=== PATIENT | female | born 1945 | race Caucasian/White ===

== ENCOUNTER 2024-12-30 13:34 | Outpatient (OUT) | payer MEDICARE, SELFPAY | END 2024-12-30 13:35 | disposition home or self-care (01) | LOC: WC 13:35 | PROVIDERS: PCP Physician Assistant; Visit Provider Physician Assistant | DX: L60.3 Nail dystrophy (principal); R26.81 Unsteadiness on feet; L60.9 Nail disorder, unspecified | CPT/HCPCS: 11721 ==

== ENCOUNTER 2025-04-06 11:19 | Outpatient (OUT) | payer MEDICARE, SELFPAY ==
[2025-04-06 12:00] LABS: Hematocrit 32.5 % (36.0-48.0); Hemoglobin 9.5 g/dL (12.0-16.0); Immature Granulocytes Abs Auto 0.04 10^3/uL (0.00-0.03); Immature Granulocytes Pct Auto 0.7 % (0.0-0.5); Lymphocytes Absolute Auto 1.1 10^3/uL (1.2-3.8); Mean Corpuscular HGB Conc 29.2 g/dL (29.9-35.2); Mean Corpuscular Hemoglobin 23.7 pg (26.7-34.0); Mean Corpuscular Volume 81.0 fL (81.0-99.0); Platelet Count 272 10^3/uL (150-450); Red Blood Count 4.01 10^6/uL (4.20-5.40); White Blood Count 6.1 10^3/uL (4.0-11.0)
[2025-04-06 12:05] LABS: Anion Gap 10.9; Blood Urea Nitrogen 23.0 mg/dL (7.0-18.0); Calcium 8.8 mg/dL (8.5-10.1); Carbon Dioxide 30.8 mmol/L (21.0-32.0); Chloride 103 mmol/L (98-107); Estimated GFR (African America >60 (>=60 mL/min/1.73m^2); Estimated GFR (Non-African Ame >60 (>=60 mL/min/1.73m^2); Glucose 83 mg/dL (74-106); Potassium 3.7 mmol/L (3.5-5.1); Sodium 141 mmol/L (136-145)
== END 2025-04-06 11:20 | disposition home or self-care (01) ==
LOC: LAB 11:25
PROVIDERS: PCP Physician Assistant; Visit Provider Nurse Practitioner Family
DX: I48.0 Paroxysmal atrial fibrillation (principal)
CPT/HCPCS: 36415; 80048; 85025

== ENCOUNTER 2025-06-28 10:58 | Outpatient (OUT) | payer MEDICARE, SELFPAY ==
--- OUTSIDE RECORDS SUMMARY | 2007-10-20 10:41 | XMS_ITS | Continuity of Care Document ---
Author Organization [facility] Address [facility] [place] [address] Phone Care Team Providers Care Garnisher Name Role Phone Kalpesh Menchaca MD Unavailable Unavailable Advance Directives Directive Yes / No Effective Date File Name No Information Encounters Encounter Description Practice Location Reason(s) For Visit Diagnoses Date Provider Providers Copied on Encounter [facility] , [address] [place] [address], [id number], tel:[phone] TEA No Information Bernarda Posey. [address] [place] [address], [id number], . tel:[phone] Referring Provider: Kalpesh Menchaca MD, [address] [place] [address], [facility] [place][note 2]. tel:[phone] Family History Family Member Type Diagnosis Age At Onset No Information Payers Payer name Insurance type Covered democrat ID Authoriza tion(s) No Information Social History Type Description Quantity Date Captured Comments Sex Female Smoking Status No Information Chief Complaint And Reason For Visit No Information Reason For Referral Reason For Referral No Information History Of Present Illness Encounter Date Complaint History Of Prese nt Illness No Information Functional Status Date Functional Assessmen t No Information Instructions Date Instruction Additional Infor mation No Information Assessments Type Assessment Date No Information Patient Care Teams Name Effective Dates (start - stop) Status Members No Information
--- OUTSIDE RECORDS SUMMARY | 2024-12-27 09:30 | XMS_ITS ---
Author Organization [facility] [place] Address [address] [place] [address] Care Team Providers Care Manager Commission Name Role Phone Hannah Gruber MD Primary Care Provider Unavailab Brianne Dawson Unavailable [phone] REASON FOR VISIT Nail Care lm to cx Encounters Encounter Location Date Provider Diagnosis [facility] (PODIATRY) [address] [place] [address] [place] [address] 12/27/2024 Brianne Patel Plan Of Treatment No Information Progress Notes * FRANTZELEUTERIOLudivinaDOB:1945 (80 yo F)Acc No.[id number]:12/27/2024 UNLOCKED PROGRESS NOTE Nurse Visit Patient: Ludivina GONZALEZ Provider: Nia Patel PA-C :1945 A ge:79 Y S ex:Female Date:12/27/2024 Address:[address] [place], [place] [phone] Pcp:Hannah Gruber MD Subjective: * Chief Complaints: * 1 . Nail Care lm to cx. * Medical History: Objective: * Vitals: Assessment: Plan: * Treatment: * * Electronic signature of Felicita Patel PA-C on 06/28/2025 at 11:00 AM EDT Sign off status: Pending Visit Status: O FF CANC (OFFICE CANCEL) * Provider: Nia Patel PA-C Date: 0 12/27/2024 Generated for Printi ng/Faxing/eTransmitting on: 1 11:00 AM EDT
--- OUTSIDE RECORDS SUMMARY | 2025-06-28 11:00 | XMS_ITS | Clinical Summary ---
Author Organization [facility] Address [address] [place] [address] Care Team Providers Care Room Service Server Name Role Phone Hannah Gruber MD Primary Care Provider [phone] Allergies Active Allergy Reactions Criticality Noted Date Comments Iodinated Contrast Media Hives,Rash Low 01/20/2024 Other Reaction(s): respiratory distress Meperidine 01/20/2024 Other Reaction(s): Dyspnea Neomycin Rash,Swelling Low 01/20/2024 Medications amLODIPine (Norvasc) 5 MG tablet Take 5 mg by mouth Daily 01/13/2024 Active DULoxetine (Cymbalta) [address] capsule 1 capsule 1 (one) time each day at the same time 12/22/2023 Active fexofenadine (Graciela Allergy) 180 MG tablet Take 1 tablet by mouth Daily Active hydroCHLOROthia zide (HYDRODiuril) 25 MG tablet Take 1 tablet by mouth Daily 01/13/2024 Active aspirin 81 MG EC tablet Take 81 mg by mouth Daily Active atorvastatin (Lipitor) 40 MG tablet Take 40 mg by mouth Daily 01/02/2024 Active apixaban (Eliquis) 5 MG tablet Take 5 mg by mouth in the morning and 5 mg before bedtime. Active Active Problems No known active problems Family History Relation Name Status Comments Father Mother Social History Tobacco Use Types Packs/Day Years Used Date Smoking Tobacco: Never Smokeless Tobacco: Never Tobacco Cessation:Counseling Given: Not Answered Alcohol Use Standard Drinks/Week Comments Never 0 (1 standard drink = 0.6 oz pur e alcohol) Comments Unknown Sex and Gender Information Value Date Recorded Sex Assigned at Not on file Legal Sex Female 6:42 PM EDT Gender Identity Not on file Sexual Orientation Not on file Last Filed Vital Signs Vital Sign Reading Time Taken Comments Blood Pressure 130/72 12/01/2024 9:08 AM EDT Pulse 89 04/14/2024 1:24 PM EDT Temperature - - Respiratory Rate 16 04/14/2024 1:24 PM EDT Oxygen Saturation 93% 04/14/2024 1:24 PM EDT Inhaled Oxygen Concentration - - Weight 81.2 kg (179 lb) 12/01/2024 9:08 AM EDT Height 162.6 cm (5' 4 ) 12/01/2024 9:08 AM EDT Body Mass Index 30.73 12/01/2024 9:08 AM EDT Plan of Treatment Health Maintenance Due Date Last Done Comments Pneumococcal Vaccine: 65+ Ye ars (2 of 2 - PCV) 07/13/2022 07/13/2021, 06/17/2015, 06/17/2010, Additional history exists Influenza Vaccine (#1) 2025 , 06/16/2023, 07/05/2022, Additional history exists Insurance MEDICARE [facility] Care Teams Room Service Server Relationship Specialty Start Date End Date Hannah Gruber MD [address] [place], [place] [id number] PCP - General Internal Medicine 12/31/23
--- OUTSIDE RECORDS SUMMARY | 2025-06-28 11:00 | XMS_ITS | Encounter Summary ---
Author Organization [facility] Address [address], [address] [place] [address] Care Team Providers Care Storage Receipt Poster Name Role Phone Hannah Gruber MD Primary Care Provider [phone] Reason for Visit * Reason Comments Follow-up Encounter Details Date Type Department Care Team ([facility] st Contact Info) Description 05/30/2025 Telemedicine [facility] Neuroscience [address] - Ground Floor, [address] [phone] Troy Ortiz MD [address] [address] [id number] Stroke-like symptoms (Primary Dx) Social History Tobacco Use Types Packs/Day Years Used Date Smoking Tobacco: Never Assessed Comments Unknown Sex and Gender Information Value Date Recorded Sex Assigned at Not on file Legal Sex Female 2:03 PM EDT Gender Identity Not on file Sexual Orientation Not on file documented as of this encounter Plan of Treatment Not on file documented as of this encounter Visit Diagnoses Diagnosis Stroke-like symptoms- Primary Other symptoms involving nervous and musculoskeletal systems documented in this encounter Care Teams Storage Receipt Poster Relationship Specialty Start Date End Date Hannah Gruber MD [address] [place] [phone] PCP - General Family Medicine 05/30/25 documented as of this encounter
--- OUTSIDE RECORDS SUMMARY | 2025-06-28 11:01 | XMS_ITS | Patient Health Record ---
Author Organization [facility] [place] Address [address] [place] [address] Care Team Providers Care Porcelain Turner Name Role Phone Hannah Gruber MD Primary Care Provider Unavailab Brianne Dawson Unavailable [phone] Allergies Allergen (clinical drug ingredient) Drug/Non Drug Allergy documented on EMR Reaction Allergy Type Onset Date Status meperidine Demerol Unknown Drug Allergy Active Iodine Unknown Drug Allergy Active neomycin Neomycin Unknown Drug Allergy Active Reason For Referral No Information Medications Medication SIG (Take, Route, Frequency, Duration) Notes Start Date End Date Status amLODIPine Besylate 5 MG 1 tablet Orally Once a day Active Cymbalta 60 MG 1 capsule Orally Once a day Active hydroCHLOROthiazide Active Social History Tobacco Use: Social History Observation Description Date Details (start date - stop date) Never Smoker NA - NA Tobacco Control (Standard) Question Answer Notes Tobacco use: Nonsmoker Problems Problem Type SNOMED Code ICD Code Onset Dates Problem Status W/U Status Risk Notes Problem 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 (625472756) Hemiplegia and hemiparesis following unspecified cerebrovascular disease affecting unspecified side (I69.959) Active confirmed Problem Stroke (616820393) Stroke (I63.9) Active confir med Problem Arthritis (9873004) Arthritis (M19.90) Active confirmed Problem Abnormal gait (66207209) Gait instability (R26.81) Active confirmed Problem History of artificial joint (033238292) Joint replaced (Z96.60) Active confirmed Vital Signs Heart Rate 81 /min 09/27/2024 Temperature 97.9 degrees Fahrenheit 09/27/2024 Oximetry 99 % 09/27/2024 Encounters Encounter Location Date Provider Diagnosis [facility] (PODIAT[facility]) [address] [place], [place] [address] [address] 09/27/2024 Brianne Patel Arthritis M19.90 Assessments Encounter Date Diagnosis (ICD Code) Assessment Notes Treatment Notes Treatment Clinical Notes Section Notes 09/27/2024 Arthritis (ICD-10 - M19.90) Plan Of Treatment No Information Insurance Providers Payer Name Payer Address Payer Phone Subscriber Number Group Number Insured Name Patient Relationship to Insured Coverage Start Date Coverage End Date [place] [address] [place] [address] [id number] Ludivina Alejandra Self - patient is the insured [facility] [address] [place] [address] [phone] [id number] Ludivina Alejandra Self - patient is the insured Medical (General) History Medical History History ICD Code Anemia D64.9 Arthritis M19.90 Stroke I63.9 Joint replaced Z96.60 Surgical History Surgery Date(Month/Year) R hip replacement 01/30/24 cataracts 01/12 left knee replacement 04/10
--- OUTSIDE RECORDS SUMMARY | 2025-06-28 11:01 | XMS_ITS | Clinical Summary ---
Author Organization [facility] Address [address], [address] [place] [address] Care Team Providers Care Corrosion Technician Name Role Phone Hannah Gruber MD Primary Care Provider [phone] Allergies Active Allergy Reactions Criticality Noted Date Comments Meperidine 05/30/2025 Environmental/Seasonal 05/30/2025 Iodinated Contrast Media 05/30/2025 Medications aspirin 81 MG EC tablet Take 1 tablet by mouth daily 30 tablet 06/03/2025 Active atorvastatin (LIPITOR) 40 MG tablet Take 1 tablet by mouth nightly 30 tablet 06/03/2025 Active rivaroxaban (XARELTO) 20 MG TABS tablet Take 1 tablet by mouth Daily with supper 30 tablet 3 06/07/2025 Active Active Problems Problem Noted Date Diagnosed Date Homonymous hemianopia, right 06/06/2025 High risk medication use 06/05/2025 CVA (cerebrovascular acciden t due to intracerebral hemorrhage) 06/04/2025 Abnormal echocardiogram 06/03/2025 ACS (acute coronary syndrome) 06/01/2025 Cardiomyopathy 06/01/2025 Chest pain 06/01/2025 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 06/01/2025 NSTEMI (non-ST elevated myocardial infarction) 0 05/31/2025 Hyperlipidemia 05/31/2025 Hypertension 05/31/2025 Depression 05/31/2025 Cerebrovascular accident (CVA) 05/31/2025 Expressive aphasia 05/31/2025 Stroke-like symptoms 05/30/2025 Encounters Date Type Department Care Team Description 05/30/2025 6:58 PM EDT - 06/07/2025 5:05 PM EDT Hospital Encounter [facility] [place] [address] Zandra Jung MD Shah, Gul E Marjan, DO Jundi, Mohammed, MD Al-Hurani, Bayan Tayseer, MD Cerebrovascular accident (CVA), unspecified mechanism (HCC) (Primary Dx); Cardiomyopathy, unspecified type (HCC); Chest pain, unspecified type Discharge Disposition: Inpatient Rehab Facility 05/30/2025 Telemedicine [facility] [address] Floor, [address] [place] [address] Troy Ortiz MD Stroke-like symptoms (Primary Dx) from Last 3 Months Social History Tobacco Use Types Packs/Day Years Used Date Smoking Tobacco: Never Assessed Comments Unknown Sex and Gender Information Value Date Recorded Sex Assigned at Not on file Legal Sex Female 2:03 PM EDT Gender Identity Not on file Sexual Orientation Not on file Last Filed Vital Signs Vital Sign Reading Time Taken Comments Blood Pressure 152/58 06/07/2025 3:14 PM EDT Pulse 80 06/07/2025 3:14 PM EDT Temperature 36.8 C (98.2 F) 06/07/2025 3:14 PM EDT Respiratory Rate 16 06/07/2025 3:14 PM EDT Oxygen Saturation 96% 06/07/2025 3:14 PM EDT Inhaled Oxygen Concentration - - Weight 80.7 kg (177 lb 14.6 oz) 06/06/2025 6:00 AM EDT Height - - Body Mass Index - - Plan of Treatment Health Maintenance Due Date Last Done Comments Depression Monitoring 1957 Shingles vaccine (1 of 2) 1995 DEXA (modify frequency per FRAX score) 02/17/2000 Pneumococcal 50+ years Vaccine (2 of 2 - PCV) 06/17/2016 06/17/2015, 06/17/2010 Respiratory Syncytial Virus (RSV) or age 60 yrs+ (1 - 1-dose 75+ series) 02/17/2020 Flu vaccine (#1) 04/22/2025 07/08/2024, , 07/05/2022, Additional history exists COVID-19 Vaccine (1 - 2023- season) 2025 Annual Wellness Visit (Medicare) 05/31/2025 Lipids 06/01/2026 06/01/2025 DTaP/Tdap/Td vaccine (2 - Td or Tdap) 01/27/2034 01/28/2024 Hepatitis A vaccine Aged Out No longe r eligible based on patient's age to complete this topic Hepatitis B vaccine Aged Out No longe r eligible based on patient's age to complete this topic Hib vaccine Aged Out No longer eligi ble based on patient's age to complete this topic Meningococcal (ACWY) vaccine Aged Out No longer eligible based on patient's age to complete this topic Meningococcal B vaccine Aged Out No l onger eligible based on patient's age to complete this topic Polio vaccine Aged Out No longer elig ible based on patient's age to complete this topic Procedures Procedure Name Priority Date/Time Associated Diagnosis Comments PHOSPHORUS Routine 06/07/2025 3:18 AM EDT MAGNESIUM Routine 06/07/2025 3:18 AM EDT CBC WITH AUTO DIFFERENTIAL Routine 06/07/2025 3:18 AM EDT BASIC METABOLIC PANEL Routine 06/07/2025 3:[address] HEAD WO CONTRAST Routine 06/06/2025 3 :15 PM EDT ANTI-XA, HEPARIN Timed 06/06/2025 9:31 AM EDT PHOSPHORUS Routine 06/06/2025 3:34 AM EDT MAGNESIUM Routine 06/06/2025 3:34 AM EDT CBC WITH AUTO DIFFERENTIAL Routine 06/06/2025 3:34 AM EDT BASIC METABOLIC PANEL Routine 06/06/2025 3:34 AM EDT ANTI-XA, HEPARIN Timed 06/06/2025 3:34 AM EDT ANTI-XA, HEPARIN Timed 06/05/2025 10:2 0 PM EDT ANTI-XA, HEPARIN Timed 06/05/2025 4:07 PM EDT PROTIME-INR Routine 06/05/2025 4:07 PM EDT APTT Routine 06/05/2025 4:07 PM EDT CBC Routine 06/05/2025 4:[address] HEAD WO CONTRAST Routine 06/05/2025 8 :25 AM EDT CBC Routine 06/04/2025 6:32 AM EDT APTT Timed 06/03/2025 6:32 AM EDT ECHO (TTE) COMPLETE W/ BUBBLE STUDY Routine 06/02/2025 1:25 PM EDT Cerebrovascular accident (CVA), unspecified mechanism (HCC) Cardiomyopathy, unspecified type (HCC) Chest pain, unspecified type APTT Timed 06/02/2025 1:13 PM EDT APTT Timed 06/02/2025 7:07 AM EDT CBC Routine 06/02/2025 7:07 AM EDT BASIC METABOLIC PANEL W/ REFLEX TO MG FOR LOW K Routine 06/02/2025 7:07 AM EDT APTT Timed 06/02/2025 1:02 AM EDT PREVIOUS SPECIMEN STAT 06/01/2025 3:3 7 PM EDT APTT STAT 06/01/2025 3:37 PM EDT XR CHEST PORTABLE Routine 06/01/2025 10: [address] HEAD WO CONTRAST Routine 06/01/2025 1 0:22 AM EDT LIPID PANEL Routine 06/01/2025 6:42 AM EDT HEMOGLOBIN A1C Routine 06/01/2025 6:42 AM EDT APTT Timed 06/01/2025 6:42 AM EDT BASIC METABOLIC PANEL W/ REFLEX TO MG FOR LOW K Routine 06/01/2025 6:42 AM EDT TROPONIN Timed 05/31/2025 9:38 PM EDT MRI BRAIN WO CONTRAST Routine 05/31/2025 3:06 PM EDT APTT Timed 05/31/2025 1:36 PM EDT ANTI-XA, HEPARIN Timed 05/31/2025 7:03 AM EDT MAGNESIUM Routine 05/31/2025 4:42 AM EDT TROPONIN Timed 05/31/2025 4:42 AM EDT BASIC METABOLIC PANEL W/ REFLEX TO MG FOR LOW K Routine 05/31/2025 4:42 AM EDT CBC Routine 05/31/2025 4:42 AM EDT TROPONIN Timed 05/31/2025 3:27 AM EDT ANTI-XA, HEPARIN Timed 05/31/2025 12:1 2 AM EDT PROTIME-INR Routine 05/31/2025 12:12 AM EDT APTT Routine 05/31/2025 12:12 AM EDT COMPREHENSIVE METABOLIC PANEL W/ REFLEX TO MG FOR LOW K STAT 05/31/2025 12:12 AM EDT CBC WITH AUTO DIFFERENTIAL STAT 05/31/2025 12:12 AM EDT from Last 3 Months Results * (ABNORMAL) CBC with Auto Differential (06/07/2025 3:18 AM EDT) Only the most recent of3 resultswithin the time period is included. WBC 6.7 3.5 - 11.3 k/uL 06/07/2025 3:18 AM EDT [facility] RBC 3.67(L) 3.95 - 5.11 m/uL 06/07/2025 3:18 AM EDT [facility] Hemoglobin 8.3(L) 11.9 - 15.1 g/dL 06/07/2025 3:18 AM EDT [facility] Hematocrit 29.0(L) 36.3 - 47.1 % 06/07/2025 3:18 AM EDT [facility] MCV 79.0(L) 82.6 - 102.9 fL 06/07/2025 3:18 AM EDT [facility] MCH 22.6(L) 25.2 - 33.5 pg 06/07/2025 3:18 AM EDT [facility] MCHC 28.6 28.4 - 34.8 g/dL 06/07/2025 3:18 AM EDT [facility] RDW 15.5(H) 11.8 - 14.4 % 06/07/2025 3:18 AM EDT [facility] Platelets 255 138 - 453 k/uL 06/07/2025 3:18 AM EDT [facility] MPV 10.0 8.1 - 13.5 fL 06/07/2025 3:18 AM EDT [facility] NRBC Automated 0.0 0.0 per 100 WBC 06/07/2025 3:18 AM EDT [facility] RBC Morphology ANISOCYTOSIS PRESENT MICROCYTOSIS PRESENT 06/07/2025 3:18 AM EDT [facility] Neutrophils % 66(H) 36 - 65 % 06/07/2025 3:18 AM EDT [facility] Lymphocytes % 18(L) 24 - 43 % 06/07/2025 3:18 AM EDT [facility] Monocytes % 10 3 - 12 % 06/07/2025 3:18 AM EDT [facility] Eosinophils % 4 1 - 4 % 06/07/2025 3:18 AM EDT [facility] Basophils % 1 0 - 2 % 06/07/2025 3:18 AM EDT [facility] Immature Granulocytes % 1(H) 0 % 06/07/2025 3:18 AM EDT [facility] Neutrophils Absolute 4.40 1.50 - 8.10 k/uL 06/07/2025 3:18 AM EDT [facility] Lymphocytes Absolute 1.22 1.10 - 3.70 k/uL 06/07/2025 3:18 AM EDT [facility] Monocytes Absolute 0.64 0.10 - 1.20 k/uL 06/07/2025 3:18 AM EDT [facility] Eosinophils Absolute 0.26 0.00 - 0.44 k/uL 06/07/2025 3:18 AM EDT [facility] Basophils Absolute 0.06 0.00 - 0.20 k/uL 06/07/2025 3:18 AM EDT [facility] Immature Granulocytes Absolute 0.09 0.00 - 0.30 k/uL 06/07/2025 3:18 AM EDT [facility] Blood BLOOD SPECIMEN / Unknown 06/07/2025 3:18 AM EDT 06/07/2025 3:49 AM EDT us Kendy Hernandez DO HEMATOLOGY ORDERABLES Final Result [facility] [address] [place] [address], [facility] [phone] * Phosphorus (06/07/2025 3:18 AM EDT) Only the most recent of2 resultswithin the time period is included. Phosphorus 4.2 2.5 - 4.5 mg/dL 06/07/2025 3:18 AM EDT [facility] Blood BLOOD SPECIMEN / Unknown 06/07/2025 3:18 AM EDT 06/07/2025 3:49 AM EDT us Gumauricio E Rosa Hernandez DO CHEMISTRY ORDERABLES Final Result Performing Organization Address [facility]/ZIP Co de [place] [address], [facility] [phone] * Magnesium (06/07/2025 3:18 AM EDT) Only the most recent of3 resultswithin the time period is included. Magnesium 1.9 1.6 - 2.4 mg/dL 06/07/2025 3:18 AM EDT [facility] Blood BLOOD SPECIMEN / Unknown 06/07/2025 3:18 AM EDT 06/07/2025 3:49 AM EDT Kendy Hernandez DO CHEMISTRY ORDERABLES Final Result Performing Organization Address [facility] de Phone Number [facility] [address] [place] [address], [facility] [phone] * (ABNORMAL) Basic Metabolic Panel (06/07/2025 3:18 AM EDT) Only the most recent of2 resultswithin the time period is included. Sodium 137 136 - 145 mmol/L 06/07/2025 3:18 AM EDT [facility] Potassium 3.9 3.7 - 5.3 mmol/L 06/07/2025 3:18 AM EDT [facility] Chloride 104 98 - 107 mmol/L 06/07/2025 3:18 AM EDT [facility] CO2 25 20 - 31 mmol/L 06/07/2025 3:18 AM EDT [facility] Anion Gap 8(L) 9 - 16 mmol/L 06/07/2025 3:18 AM EDT [facility] Glucose 98 74 - 99 mg/dL 06/07/2025 3:18 AM EDT [facility] BUN 19 8 - 23 mg/dL 06/07/2025 3:18 AM EDT [facility] Creatinine 0.8 0.6 - 0.9 mg/dL 06/07/2025 3:18 AM EDT [facility] Est, Glom Filt Rate 74 >60 mL/min/1. 73m2 06/07/2025 3:18 AM EDT [facility] Comment: These results are not intended for use in patients <18 years of age. eGFR results are calculated without a race factor using the 2020 CKD-EPI equation. Careful clinical correlation is recommended, particularly when comparing to results calculated using previous equations. The CKD-EPI equation is less accurate in patients with extremes of muscle mass, extra-renal metabolism of creatine, excessive creatine ingestion, or following therapy that affects renal tubular secretion. Calcium 9.1 8.6 - 10.4 mg/dL 06/07/2025 3:18 AM EDT [facility] Blood BLOOD SPECIMEN / Unknown 06/07/2025 3:18 AM EDT 06/07/2025 3:49 AM EDT Kendy Hernandez DO CHEMISTRY ORDERABLES Final Result [facility] [address] [phone] * CT HEAD WO CONTRAST (06/06/2025 3:15 PM EDT) Only the most recent of3 resultswithin the time period is included. Anatomical Region Laterality Modality Head Computed Tomogra phy 06/06/2025 6:06 PM EDT Impressions 06/07/2025 8:49 PM EDT 1. Redemonstration of an area of hypoattenuation in the posterior left temporal occipital lobe consistent with an acute area of infarct. No hemorrhage is identified. 2. 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 Remote left cerebellar infarct. Narrative 06/07/2025 8:49 PM EDT EXAMINATION: CT OF THE HEAD WITHOUT CONTRAST 06/06/2025 3:07 pm TECHNIQUE: CT of the head was performed without the administration of intravenous contrast. Automated exposure control, iterative reconstruction, and/or weight based adjustment of the mA/kV was utilized to reduce the radiation dose to as low as reasonably achievable. COMPARISON: 06/05/2025, brain MRI 05/30/2025 HISTORY: ORDERING SYSTEM PROVIDED HISTORY: Left RELIEF CHARGE NURSE stroke TECHNOLOGIST PROVIDED HISTORY: Left RELIEF CHARGE NURSE stroke Initial evaluation FINDINGS: BRAIN/VENTRICLES: The ventricles and cisternal spaces are prominent consistent with cerebral atrophy. There is atherosclerotic calcification of the cavernous carotids. There are subtle areas of hypoattenuation in the periventricular white matter and centrum semiovale that are likely related to chronic small vessel ischemic disease. There is a remote right frontal infarct. There is a remote left frontoparietal infarct. Remote left cerebellar infarct. There is an area of abnormal attenuation involving the posterior left temporal occipital lobe consistent with acute area of infarct. This is similar in appearance to the prior exams. No hemorrhage is identified in the brain parenchyma. ORBITS: The visualized portion of the orbits demonstrate no acute abnormality. SINUSES: The visualized paranasal sinuses and mastoid air cells are for the most part clear. SOFT TISSUES/SKULL: No acute abnormality of the visualized skull or soft tissues. Procedure Note Marian Espino MD - 06/07/2025 EXAMINATION: CT OF THE HEAD WITHOUT CONTRAST 06/06/2025 3:07 pm TECHNIQUE: CT of the head was performed without the administration of intravenous contrast. Automated exposure control, iterative reconstruction, and/orweight based adjustment of the mA/kV was utilized to reduce the radiation dose toas low as reasonably achievable. COMPARISON: 06/05/2025, brain MRI 05/30/2025 HISTORY: ORDERING SYSTEM PROVIDED HISTORY: Left RELIEF CHARGE NURSE stroke TECHNOLOGIST PROVIDED HISTORY: Left RELIEF CHARGE NURSE stroke Initial evaluation FINDINGS: BRAIN/VENTRICLES: The ventricles and cisternal spaces are prominent consistent with cerebral atrophy. There is atherosclerotic calcificationof the cavernous carotids. There are subtle areas of hypoattenuation in the periventricular white matter and centrum semiovale that are likely relatedto chronic small vessel ischemic disease. There is a remote right frontal infarct. There is a remote left frontoparietal infarct. Remote left cerebellar infarct. There is an area of abnormal attenuation involving the posterior left temporal occipital lobe consistent with acute area of infarct. This is similar in appearance to the prior exams. No hemorrhage is identifiedin the brain parenchyma. ORBITS: The visualized portion of the orbits demonstrate no acuteabnormality. SINUSES: The visualized paranasal sinuses and mastoid air cells are forthe most part clear. SOFT TISSUES/SKULL: No acute abnormality of the visualized skull orsoft tissues. IMPRESSION: 1. Redemonstration of an area of hypoattenuation in the posterior left temporal occipital lobe consistent with an acute area of infarct. No hemorrhage is identified. 2. 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 Remote left cerebellar infarct. Edis Murillo MD IMG CT ORDERABLES Final Result * Anti-XA, Heparin (06/06/2025 9:31 AM EDT) Only the most recent of6 resultswithin the time period is included. Anti-XA Unfrac Heparin 0.52 IU/L 06/06/2025 9:31 AM EDT [facility] Comment: This test has not been validated or calibrated for therapies other than unfractionated heparin. Interpretation of the result in relation to other therapies must be done with caution and within clinical context. Blood BLOOD SPECIMEN / Unknown 06/06/2025 9:31 AM EDT 06/06/2025 9:34 AM EDT Regan Burdick MD HEMATOLOGY ORDERABLES Final Resu lt Performing Organization Address [facility] Co de Phone Number [facility] [address] [place] [address] * APTT (06/05/2025 4:07 PM EDT) Only the most recent of9 resultswithin the time period is included. APTT 32.9 23.0 - 36.5 sec 06/05/2025 4:07 PM EDT [facility] Comment: IV Heparin Therapy Range: 66.0-92.0 sec Blood BLOOD SPECIMEN / Unknown 06/05/2025 4:07 PM EDT 06/05/2025 4:12 PM EDT Regan Burdick MD HEMATOLOGY ORDERABLES Final Resu lt Performing Organization Address City/[facility]/ZIP Co de Phone Number [facility] [address] [place] [address] * Protime-INR (06/05/2025 4:07 PM EDT) Only the most recent of2 resultswithin the time period is included. Pathologist [facility] Protime 13.6 11.7 - 14.9 sec 06/05/2025 4:07 PM EDT [facility] INR 1.0 06/05/2025 4:07 PM EDT [facility] Comment: Therapeutic Range: Moderate Anticoagulant Intensity: INR = 2.0-3.0 High Anticoagulant Intensity: INR = 2.5-3.5 Blood BLOOD SPECIMEN / Unknown 06/05/2025 4:07 PM EDT 06/05/2025 4:12 PM EDT us Regan Burdick MD HEMATOLOGY ORDERABLES Final Resu lt [facility] [address] [phone] * (ABNORMAL) CBC (06/05/2025 4:07 PM EDT) Only the most recent of4 resultswithin the time period is included. Pathologist [facility] WBC 9.2 3.5 - 11.3 k/uL 06/05/2025 4:07 PM EDT [facility] RBC 4.01 3.95 - 5.11 m/uL 06/05/2025 4:07 PM EDT [facility] Hemoglobin 9.2(L) 11.9 - 15.1 g/dL 06/05/2025 4:07 PM EDT [facility] Hematocrit 32.0(L) 36.3 - 47.1 % 06/05/2025 4:07 PM EDT [facility] MCV 79.8(L) 82.6 - 102.9 fL 06/05/2025 4:07 PM EDT [facility] MCH 22.9(L) 25.2 - 33.5 pg 06/05/2025 4:07 PM EDT [facility] MCHC 28.8 28.4 - 34.8 g/dL 06/05/2025 4:07 PM EDT [facility] RDW 15.7(H) 11.8 - 14.4 % 06/05/2025 4:07 PM EDT [facility] Platelets 296 138 - 453 k/uL 06/05/2025 4:07 PM EDT [facility] MPV 10.2 8.1 - 13.5 fL 06/05/2025 4:07 PM EDT [facility] NRBC Automated 0.0 0.0 per 100 WBC 06/05/2025 4:07 PM EDT [facility] Blood BLOOD SPECIMEN / Unknown 06/05/2025 4:07 PM EDT 06/05/2025 4:12 PM EDT us Regan Burdick MD HEMATOLOGY ORDERABLES Final Resu lt [facility] [place] [address], [facility] [phone] * (ABNORMAL) ECHO (TTE) COMPLETE W/ BUBBLE STUDY (06/02/2025 1:25 PM EDT) LA [place] 4.8 cm [facility] CV CPACS LA [place] 5.2 cm [facility] CV CPACS LA Area 2C 13.9 cm2 [facility] CV CPACS LA Area 4C 10.3 cm2 [facility] CV CPACS LA Volume MOD A2C 32 22 - 52 mL [facility] CV CPA CS LA Volume MOD A4C 16(A) 22 - 52 mL [facility] CV CPA CS LA Volume BP 24 22 - 52 mL [facility] CV CPACS LA Diameter 2.9 cm BS CV CPACS LV EDV A4C 50 mL [facility] CV CPACS LV EDV 3D 98 mL [facility] CV CPACS LV ESV A4C 14 mL [facility] CV CPACS LV ESV 3D 42 mL [facility] CV CPACS EF 3D 57 % [facility] CV CPACS LV Ejection Fraction A4C 71 % [facility] CV [facility]ACS LVOT SV 40.2 ml [facility] CV CPACS LV Mass 3D 125.0 g [facility] CV CPACS IVSd 0.9 0.6 - 0.9 cm BS CV CPACS LVIDd 3.7(A) 3.9 - 5.3 cm [facility] CV CPACS LVIDs 2.3 cm BS CV CPACS LVOT Diameter 1.6 cm BS CV CPACS LVOT Mean Gradient 3 mmHg BS CV CPACS LVOT VTI 20.0 cm BS CV CPACS LVOT Peak Velocity 1.2 m/s BS CV CPACS LVOT Peak Gradient 6 mmHg BS CV CPACS LVPWd 1.0(A) 0.6 - 0.9 cm BS CV CPACS LV E' Lateral Velocity 8.39 cm/s BS CV CPACS LV E' Septal Velocity 5.78 cm/s BS CV CPACS Global longitudinal strain -14.2 % BS CV CPACS Global longitudinal strain -11.6 % [facility] CV CPACS Global longitudinal strain -15.9 % BS CV CPACS Global longitudinal strain -13.9 % BS CV CPACS LVOT Area 2.0 cm2 BS CV CPACS RA Area 4C 12.4 cm2 BS CV CPACS RA Volume 31 ml BS CV CPACS AV Mean Velocity 1.0 m/s BS CV CPACS AV Mean Gradient 5 mmHg BS CV CPACS AV VTI 25.5 cm BS CV CPACS AV Peak Velocity 1.6 m/s BS CV CPACS AV Peak Gradient 10 mmHg BS CV CPACS AV Area by VTI 1.6 cm2 BS CV CPACS AV Area by Peak Velocity 1.6 cm2 BS CV CPACS Aortic Root 2.9 cm BS CV CPACS Ascending Aorta 3.8 cm BS CV CPACS IVC Proxmal 0.9 cm [facility] CV CPACS MV E Wave Deceleration Time 172.0 ms BS CV CPACS MV A Velocity 1.25 m/s BS CV CPACS MV E Velocity 0.90 m/s BS CV CPACS PV Max Velocity 1.4 m/s BS CV CPACS PV Peak Gradient 8 mmHg BS CV CPACS Pulm Vein A Velocity 0.4 m/s BS CV CPACS RV Basal Dimension 2.8 cm BS CV CPACS RV Free Wall Peak S' 16.8 cm/s BS CV CPACS TAPSE 2.3 >=1.7 cm BS CV CPACS TR Max Velocity 2.42 m/s BS CV CPACS TR Peak Gradient 23 mmHg BS CV CPACS Fractional Shortening 2D 38 28 - 44 % BS [facility] CPACS LV RWT Ratio 0.54 BS [facility] CPACS LV Mass 2D 104.6 67 - 162 g [facility] CV CPACS MV E/A 0.72 [facility] CV CPACS E/E' Ratio (Averaged) 13.15 [facility] CV CPACS E/E' Lateral 10.73 [facility] CV CPACS E/E' Septal 15.57 [facility] CV CPACS LA/AO Root Ratio 1.00 [facility] CV CPACS AV Velocity Ratio 0.75 [facility] CV CPACS LVOT:AV VTI Index 0.78 [facility] CV CPACS Est. RA Pressure 3 mmHg [facility] CV CPACS RVSP 26 mmHg [facility] CV CPACS EF Physician 57 % [facility] CV CPACS Anatomical Region Laterality Modality Echocardiography Narrative 06/02/2025 6:43 PM EDT Left Atrium: Left atrium size is normal. There is a large echodensity noted in the left atrium. This is not seen in all views. This could be artificat from the mitral valve vs other pathologies. Recommend DIAMOND for better visualization. Mitral Valve: There is severe thickening of the posterior leaflet/ annulus. This could be severe MAC vs a healed vegetation. Clinical correlation. There is restricted leflet mobility. Mild to moderate regurgitation. No stenosis noted. Left Ventricle: Normal left ventricular systolic function. EF 3D is 57%. Left ventricle size is normal. Normal wall thickness. Normal wall motion. Right Ventricle: Right ventricle size is normal. Normal systolic function. Aortic Valve: Thickened cusps. No regurgitation. No stenosis. Tricuspid Valve: Valve structure is normal. Trace regurgitation. No stenosis noted. RVSP is 26 mmHg. Pulmonic Valve: The pulmonic valve visualization is suboptimal but appears to be functioning normally. Physiologically normal regurgitation. No stenosis noted. Interatrial Septum: Lipomatous hypertrophy. No interatrial shunt visualized with color Doppler. Agitated saline study was negative with and without provocation. Aorta: Normal sized aortic root and ascending aorta. Pericardium: There is evidence of epicardial fat. No pericardial effusion. IVC/SVC: IVC diameter is normal or and decreases greater than 50% during inspiration; therefore the estimated right atrial pressure is normal (~3 mmHg). IVC size is normal. Image quality is adequate. Left Ventricle Normal left ventricular systolic function. EF 3D is 57%. Left ventricle size is normal. Normal wall thickness. Normal wall motion. Right Ventricle Right ventricle size is normal. Normal systolic function. Left Atrium Left atrium size is normal. There is a large echodensity noted in the left atrium. This is not seen in all views. Recommend DIAMOND for better visualization. Right Atrium Right atrium size is normal. IVC/SVC IVC diameter is normal or and decreases greater than 50% during inspiration; therefore the estimated right atrial pressure is normal (~3 mmHg). IVC size is normal. Mitral Valve There is severe thickening of the posterior leaflet/ annulus. This could be severe MAC vs a healed vegetation. Clinical correlation. There is restricted leflet mobility. Mild to moderate regurgitation. No stenosis noted. Tricuspid Valve Valve structure is normal. Trace regurgitation. No stenosis noted. RVSP is 26 mmHg. Aortic Valve Thickened cusps. No regurgitation. No stenosis. Pulmonic Valve The pulmonic valve visualization is suboptimal but appears to be functioning normally. Physiologically normal regurgitation. No stenosis noted. Ascending Aorta Normal sized aortic root and ascending aorta. Pericardium There is evidence of epicardial fat. No pericardial effusion. Septum Lipomatous hypertrophy. No interatrial shunt visualized with color Doppler. Agitated saline study was negative with and without provocation. Study Details Image quality: adequate. Color flow Doppler was performed and pulse wave and/or continuous wave Doppler was performed. Saline contrast was given to evaluate for intracardiac shunt. No shunt seen. us Omar Falk MD ECHO ORDERABLES Final Result * (ABNORMAL) Basic Metabolic Panel w/ Reflex to MG (06/02/2025 7:07 AM EDT) Only the most recent of3 resultswithin the time period is included. Sodium 137 136 - 145 mmol/L 06/02/2025 7:07 AM EDT [facility] Potassium 4.3 3.7 - 5.3 mmol/L 06/02/2025 7:07 AM EDT [facility] Chloride 103 98 - 107 mmol/L 06/02/2025 7:07 AM EDT [facility] CO2 23 20 - 31 mmol/L 06/02/2025 7:07 AM EDT [facility] Anion Gap 11 9 - 16 mmol/L 06/02/2025 7:07 AM EDT [facility] Glucose 119(H) 74 - 99 mg/dL 06/02/2025 7:07 AM EDT [facility] BUN 16 8 - 23 mg/dL 06/02/2025 7:07 AM EDT [facility] Creatinine 0.9 0.6 - 0.9 mg/dL 06/02/2025 7:07 AM EDT [facility] Est, Glom Filt Rate 65 >60 mL/min/1. 73m2 06/02/2025 7:07 AM EDT [facility] Comment: These results are not intended for use in patients <18 years of age. eGFR results are calculated without a race factor using the 2020 CKD-EPI equation. Careful clinical correlation is recommended, particularly when comparing to results calculated using previous equations. The CKD-EPI equation is less accurate in patients with extremes of muscle mass, extra-renal metabolism of creatine, excessive creatine ingestion, or following therapy that affects renal tubular secretion. Calcium 9.1 8.6 - 10.4 mg/dL 06/02/2025 7:07 AM EDT [facility] Blood BLOOD SPECIMEN / Unknown 06/02/2025 7:07 AM EDT 06/02/2025 7:09 AM EDT Ginger Andrew RIBBON LAP MACHINE TENDER - CABLE ASSEMBLER CHEMISTRY ORDERABLES Cara l Result Performing Organization Address City/[facility]/ZIP Co de Phone Number [facility] [address] [place] [address], [facility] [phone] * PREVIOUS SPECIMEN (06/01/2025 3:37 PM EDT) 06/01/2025 3:37 PM EDT 06/01/2025 4:14 PM EDT Kendy Hernandez DO CHEMISTRY ORDERABLES Final Result Performing Organization Address City/[facility]/ZIP Co de Phone Number [facility] [address] [place] [address], [facility] [phone] * XR CHEST PORTABLE (06/01/2025 10:52 AM EDT) Anatomical Region Laterality Modality Chest Computed Radiogr aphy 06/01/2025 1:39 PM EDT Impressions 06/01/2025 1:41 PM EDT Mild central pulmonary vascular congestion. No consolidation or pleural effusion. Narrative 06/01/2025 1:41 PM EDT EXAMINATION: ONE XRAY VIEW OF THE CHEST 06/01/2025 9:59 am COMPARISON: None. HISTORY: ORDERING SYSTEM PROVIDED HISTORY: acute hypoxic respiratory failure TECHNOLOGIST PROVIDED HISTORY: acute hypoxic respiratory failure FINDINGS: Normal cardiomediastinal silhouette size and morphology. Central pulmonary vascular congestion. No overt pulmonary edema. No consolidation or pleural effusion. No appreciable pneumothorax. Cardiac loop recorder device. No acute fracture. Procedure Note Sim Downs MD - 06/01/2025 EXAMINATION: ONE XRAY VIEW OF THE CHEST 06/01/2025 9:59 am COMPARISON: None. HISTORY: ORDERING SYSTEM PROVIDED HISTORY: acute hypoxic respiratory failure TECHNOLOGIST PROVIDED HISTORY: acute hypoxic respiratory failure FINDINGS: Normal cardiomediastinal silhouette size and morphology. Centralpulmonary vascular congestion. No overt pulmonary edema. No consolidation orpleural effusion. No appreciable pneumothorax. Cardiac loop recorder device.No acute fracture. IMPRESSION: Mild central pulmonary vascular congestion. No consolidation or pleural effusion. Kendy Hernandez DO IMG DIAGNOSTIC IMAGING [facility]DE RABDIANNE Final Result * Hemoglobin A1C (06/01/2025 6:42 AM EDT) Hemoglobin A1C 5.5 4.0 - 6.0 % 06/01/2025 6:42 AM EDT [facility] Estimated Avg Glucose 111 mg/dL 06/01/2025 6:42 AM EDT [facility] Comment: The ADA and AACC recommend providing the estimated average glucose result to permit better patient understanding of their HBA1c result. 06/01/2025 6:42 AM EDT 06/01/2025 6:58 AM EDT Ginger Andrew RIBBON LAP MACHINE TENDER - CABLE ASSEMBLER CHEMISTRY ORDERABLES Cara l Result [facility] [address] [place] [address], [facility] [phone] * Lipid Panel (06/01/2025 6:42 AM EDT) Cholesterol, Total 172 0 - 199 mg/dL 06/01/2025 6:42 AM EDT [facility] Comment: Cholesterol Guidelines: <200 Desirable 200-240 Borderline >240 Undesirable HDL 82 >40 mg/dL 06/01/2025 6:42 AM EDT [facility] Comment: HDL Guidelines: <40 Undesirable 40-59 Borderline >59 Desirable LDL Cholesterol 62 0 - 100 mg/dL 06/01/2025 6:42 AM EDT [facility] Comment: LDL Guidelines: <100 Desirable 100-129 Near to/above Desirable 130-159 Borderline >159 Undesirable Direct (measured) LDL and calculated LDL are not interchangeable tests. Chol/HDL Ratio 2.1 <5.0 06/01/2025 6:42 AM EDT [facility] Triglycerides 139 <150 mg/dL 06/01/2025 6:42 AM EDT [facility] Comment: Triglyceride Guidelines: <150 Desirable 150-199 Borderline 200-499 High >499 Very high Based on AHA Guidelines for fasting triglyceride, June 2012. VLDL 28 1 - 30 mg/dL 06/01/2025 6:42 AM EDT [facility] 06/01/2025 6:42 AM EDT 06/01/2025 6:58 AM EDT Ginger Cardona NP CHEMISTRY ORDERABLES Cara martínez Result [facility] [address] [place] [address] * (ABNORMAL) Troponin (05/31/2025 9:38 PM EDT) Only the most recent of3 resultswithin the time period is included. Troponin, High Sensitivity 215(HH) 0 - 14 ng/L 05/31/2025 9:38 PM EDT [facility] Comment: High Sensitivity Troponin values cannot be compared with other Troponin methodologies. Previous Alert Value Reported Blood BLOOD SPECIMEN / Unknown 05/31/2025 9:38 PM EDT 05/31/2025 9:58 PM EDT us Omar Falk MD CHEMISTRY ORDERABLES Final Resu lt [facility] [place] [address], [facility] [phone] * MRI BRAIN WO CONTRAST (05/31/2025 3:06 PM EDT) Anatomical Region Laterality Modality Head Magnetic Resonan ce 05/31/2025 5:06 PM EDT Addenda Addendum by Luma Lacy MD on 05/31/2025 5:39 PM EDT ADDENDUM #1 The important findings were discussed with Dr. Kendy Hernandez by Dr. Luma Lacy at 05/31/2025 05:39 PM. 1. Impressions 05/31/2025 5:10 PM EDT 1. Acute infarct involving the majority of the left RELIEF CHARGE NURSE territory, with smaller acute infarcts also seen in the anterior/inferior left cerebellar hemisphere and left thalamus. No associated hemorrhage or mass effect. 2. 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 3. Mild burden of scattered white matter FLAIR hyperintensities, likely representing chronic microangiopathic ischemic changes in this age group. Narrative 05/31/2025 5:10 PM EDT EXAM: MRI BRAIN WITHOUT CONTRAST 05/31/2025 03:06:33 PM TECHNIQUE: Multiplanar multisequence MRI of the head/brain was performed without the administration of intravenous contrast. COMPARISON: None available. CLINICAL HISTORY: Stroke like symptoms. FINDINGS: BRAIN AND VENTRICLES: Restricted diffusion throughout the majority of the left RELIEF CHARGE NURSE (posterior cerebral artery) territory with smaller areas of involvement in the anterior/inferior left cerebellar hemisphere and in the left thalamus consistent with acute infarcts. No associated hemorrhage or mass effect at this time. Several chronic lacunar infarcts in the left cerebellar hemisphere. Small chronic transcortical infarct in each of the frontal lobes. Mild burden of scattered white matter FLAIR hyperintensities are nonspecific but likely represent chronic microangiopathic ischemic changes in this age group. No midline shift. No hydrocephalus. The sella is unremarkable. Normal flow voids. ORBITS: No acute abnormality. SINUSES AND MASTOIDS: No acute abnormality. BONES AND SOFT TISSUES: Normal marrow signal. No acute soft tissue abnormality. Procedure Note Luma Lacy MD - 05/31/2025 EXAM: MRI BRAIN WITHOUT CONTRAST 05/31/2025 03:06:33 PM TECHNIQUE: Multiplanar multisequence MRI of the head/brain was performed without theadministration of intravenous contrast. COMPARISON: None available. CLINICAL HISTORY: Stroke like symptoms. FINDINGS: BRAIN AND VENTRICLES: Restricted diffusion throughout the majority of the left RELIEF CHARGE NURSE (posteriorcerebral artery) territory with smaller areas of involvement in theanterior/inferior left cerebellar hemisphere and in the left thalamusconsistent with acute infarcts. No associated hemorrhage or mass effect at this time. Several chronic lacunar infarcts in the left cerebellar hemisphere. Smallchronic transcortical infarct in each of the frontal lobes. Mild burden of scattered white matter FLAIR hyperintensities arenonspecific but likely represent chronic microangiopathic ischemic changesin this age group. No midline shift. No hydrocephalus. The sella is unremarkable. Normal flow voids. ORBITS: No acute abnormality. SINUSES AND MASTOIDS: No acute abnormality. BONES AND SOFT TISSUES: Normal marrow signal. No acute soft tissue abnormality. IMPRESSION: 1. Acute infarct involving the majority of the left RELIEF CHARGE NURSE territory, withsmaller acute infarcts also seen in the anterior/inferior left cerebellarhemisphere and left thalamus. No associated hemorrhage or mass effect. 2. 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 3. Mild burden of scattered white matter FLAIR hyperintensities, likelyrepresenting chronic microangiopathic ischemic changes in this agegroup. Ginger Kamran RIBBON LAP MACHINE TENDER - CABLE ASSEMBLER IMG MRI ORDERABLES Edited Result - Final * (ABNORMAL) Comprehensive Metabolic Panel w/ Reflex to MG (05/31/2025 12:12 AM EDT) Sodium 140 136 - 145 mmol/L 05/31/2025 12:12 AM EDT [facility] Potassium 3.8 3.7 - 5.3 mmol/L 05/31/2025 12:12 AM EDT [facility] Chloride 104 98 - 107 mmol/L 05/31/2025 12:12 AM EDT [facility] CO2 25 20 - 31 mmol/L 05/31/2025 12:12 AM EDT [facility] Anion Gap 11 9 - 16 mmol/L 05/31/2025 12:12 AM EDT [facility] Glucose 107(H) 74 - 99 mg/dL 05/31/2025 12:12 AM EDT [facility] BUN 13 8 - 23 mg/dL 05/31/2025 12:12 AM EDT [facility] Creatinine 0.7 0.6 - 0.9 mg/dL 05/31/2025 12:12 AM EDT [facility] Est, Glom Filt Rate 87 >60 mL/min/1. 73m2 05/31/2025 12:12 AM EDT [facility] Comment: These results are not intended for use in patients <18 years of age. eGFR results are calculated without a race factor using the 2020 CKD-EPI equation. Careful clinical correlation is recommended, particularly when comparing to results calculated using previous equations. The CKD-EPI equation is less accurate in patients with extremes of muscle mass, extra-renal metabolism of creatine, excessive creatine ingestion, or following therapy that affects renal tubular secretion. Calcium 9.4 8.6 - 10.4 mg/dL 05/31/2025 12:12 AM EDT [facility] Total Protein 6.3(L) 6.6 - 8.7 g/dL 05/31/2025 12:12 AM EDT [facility] Albumin 3.6 3.5 - 5.2 g/dL 05/31/2025 12:12 AM T [facility] Albumin/Globulin Ratio 1.3 1.0 - 2.5 05/31/2025 12:12 AM EDT [facility] Total Bilirubin 0.2 0.0 - 1.2 mg/dL 05/31/2025 12:12 AM EDT [facility] Alkaline Phosphatase 80 35 - 104 U/L 05/31/2025 12:12 AM EDT [facility] ALT 9(L) 10 - 35 U/L 05/31/2025 12:12 AM EDT [facility] AST 25 10 - 35 U/L 05/31/2025 12:12 AM T [facility] Blood BLOOD SPECIMEN / Unknown 05/31/2025 12:12 AM EDT 05/31/2025 12:24 AM EDT us Omar Falk MD CHEMISTRY ORDERABLES Final Resu lt [facility] [address] [place] [address], [facility] [phone] from Last 3 Months Insurance MEDICARE [employer] MEDICARE SUPP MEDICARE [employer] MEDICARE SUPP Advance Directives * Full Code (Latest Code Status on File) Date Activated Date Inactivated Comments 05/30/2025 7:44 PM 06/07/2025 7:06 PM Care Teams Corrosion Technician Relationship Specialty Start Date End Date Hannah Gruber MD [address] [place] [phone] PCP - General Family Medicine 05/30/25
--- OUTSIDE RECORDS SUMMARY | 2025-06-28 11:19 | XMS_ITS | CCD ---
Author Organization [facility] [employer] [facility] Care Team Providers Care Soldering Machine Setter Name Role Phone MD Hannah Gruber Primary Care Provider MD Kapil José Jr Emergency Provider MD Azar Plaza Admit Provider MD Azar Plaza Attending Provider DO Marcelle Gaston Attending Provider DO Dave Naylor Other Provider MD Trey Guerra Other Provider MD Avtar Barbosa Admit Provider MD Avtar Barbosa Attending Provider KIMBER Reed Other Provider Unavailable KIMBER Cam Other Provider Unavailable KIMBER Luo Other Provider Unavailable KIMBER Borden Other Provider Unavailable KIMBER Sinclair Other Provider Unavailable KIMBER Blake Other Provider Unavailable MD Aby James Other Provider MD Bonilla Moran Other Provider Unavailable Dials, FAMILY INTERVENTION SPECIALIST Madina Niles Other Provider [phone] DO Joe Islas Other Provider MD Jose Foley Other Provider DO Scottie Coleman Other Provider MD Severiano Velasco Other Provider MD Dahiana Villegas Other Provider MD Rodrigo Ruelas Other Provider Unavailable LIVAN Villalba Other Provider MD Alfredo Yip Other Provider MD Paolo Lyn Other Provider MD Azar Plaza Other Provider MD Lauren Mijares Other Provider DO Fernando Fraser Other Provider MD Austen Hernandez Other Provider MD George Vallejo Other Provider JAVIER Holland Other Provider LIVAN Cartagena Other Provider Unavailable MD Tobias Tellez Other Provider MD Samm Buckley Other Provider MD Eugene Hernandez Other Provider MD Denae Andrew Other Provider Unavailable MD Blade Quiroz Other Provider DO Alissa Rivero Other Provider DO Chay Ayala Other Provider DO Landen Castro Other Provider LIVAN Pacheco Other Provider DO Piyush Elliott Other Provider MD Anjel So Other Provider LIVAN Gannon Other Provider LIVAN Roth Other Provider MD Jude Moore Other Provider MD Howard Golden Other Provider DO Quinten Shook Other Provider DO Marcelle Gaston Other Provider MD Donald Hernandez Other Provider KIMBER Koo Other Provider Unavailable DO Dnany Tripp Emergency Provider MD Howard Golden Admit Provider [phone] MD Howard Golden Attending Provider MD Rosemary Serra Other Provider MD Azar Plaza Attending Provider MD Adeola Wharton Other Provider LIVAN Newotn Other Provider DO Ray Stout Jr Other Provider MD Avtar Barbosa Other Provider MD Hannah Gruber Primary Care Provider MD Kapil José Jr Emergency Provider MD Azar Plaza Admit Provider DO Marcelle Gaston Attending Provider DO Dave Naylor Other Provider MD Trey Guerra Other Provider MD Avtar Barbosa Admit Provider MD Avtar Barbosa Attending Provider [phone] KIMBER Reed Other Provider Unavailable KIMBER Cam Other Provider Unavailable KIMBER Luo Other Provider Unavailable KIMBER Borden Other Provider Unavailable KIMBER Sinclair Other Provider Unavailable KIMBER Blake Other Provider Unavailable MD Aby James Other Provider MD Bonilla Moran Other Provider Unavailable LIVAN Arroyo Madina M Other Provider [phone] DO Joe Islas Other Provider MD Jose Foley Other Provider DO Scottie Coleman Other Provider MD Severiano Velasco Other Provider MD Dahiana Villegas Other Provider MD Rodrigo Ruelas Other Provider Unavailable LIVAN Villalba Other Provider [phone] MD Alfredo Yip Other Provider MD Paolo Lyn Other Provider MD Azar Plaza Other Provider MD Laurne Mijares Other Provider DO Fernando Fraser Other Provider [phone] MD Austen Hernandez Other Provider MD George Vallejo Other Provider Amalia COMMERCIAL REPORTER-C Madison Johns Other Provider LIVAN Cartagena Other Provider Unavailable MD Tobias Tellez Other Provider MD Samm Buckley Other Provider MD Eugene Hernandez Other Provider MD Denae Andrew Other Provider Unavailable MD Blade Quiroz Other Provider DO Alissa Rivero Other Provider DO Chay Ayala Other Provider DO Landen Castro Other Provider LIVAN Pacheco Other Provider DO Piyush Elliott Other Provider MD Anjel So Other Provider LIVAN Gannon Other Provider LIVAN Roth Other Provider [phone] MD Jude Moore Other Provider MD Howard Golden Other Provider DO Boone Quinten T Other Provider DO Alek Yamark Other Provider MD Donald Hernandez Other Provider KIMBER Koo Other Provider Unavailable DO Danny Tripp Emergency Provider MD Howard Golden Admit Provider MD Rosemary Serra Other Provider MD Azar Plaza Attending Provider MD Adeola Wharton Other Provider LIVAN Newton Other Provider DO Ray Stout Jr Other Provider MD Avtar Barbosa Other Provider MD Rosemary Serra Attending Provider MD Hannah Gruber Primary Care Provider MD Trey Guerra Other Provider KIMBER Reed Other Provider Unavailable KIMBER Cam Other Provider Unavailable KIMBER Borden Other Provider Unavailable KIMBER Sinclair Other Provider Unavailable KIMBER Blake Other Provider Unavailable MD Aby James Other Provider DO Joe Islas Other Provider [phone] MD Jose Foley Other Provider [phone] DO Scottie Coleman Other Provider MD Severiano Velasco Other Provider MD Dahiana Villegas Other Provider MD Rodrigo Ruelas Other Provider Unavailable LIVAN Villalba Other Provider MD Alfredo Yip Other Provider [phone] MD Paolo Lyn Other Provider MD Azar Plaza Other Provider MD Lauren Mijares Other Provider DO Fernando Fraser Other Provider [phone] MD Austen Hernandez Other Provider MD George Vallejo Other Provider Amalia COMMERCIAL REPORTER-C Madison Johns Other Provider LIVAN Cartagena Other Provider Unavailable MD Tobias Tellez Other Provider MD Samm Buckley Other Provider MD Eugene Hernandez Other Provider MD Denae Andrew Other Provider Unavailable MD Blade Quiroz Other Provider DO Alissa Rivero Other Provider DO Chay Ayala Other Provider LIVAN Pacheco Other Provider DO Piyush Elliott Other Provider MD Anjel So Other Provider LIVAN Gannon Other Provider [phone] LIVAN Roth Other Provider MD Jude Moore Other Provider MD Howard Golden Other Provider DO Quinten Shook Other Provider DO Marcelle Gaston Other Provider MD Kolby Hernandezit P Other Provider KIMBER Koo Other Provider Unavailable MD Avtar Barbosa Admit Provider MD Avtar Barbosa Attending Provider MD Rosemary Serra Attending Provider [phone] MD Hannah Gruber Primary Care Provider MD Rosemary Serra Attending Provider JAVIER Vaz Attending Provider [phone] MD Hannah Gruber Primary Care Provider MD Rosemary Serra Attending Provider [phone] IRMA ROLLINS Attending Unavailable KURT, SHAILA Attending Unavailable KURT, SHAILA Attending Unavailable Hannah Gruber MD Primary Care Provider [phone] VELASQUEZ SANTIZO Referring Unavailable SALMAN, FNU Consulting Unavailable HANNAH GRUBER Primary Care Unavailable SHRAVAN, NURY Admitting Unavailable LUANN, YOMAIRA CUELLAR Attending Unavail able JAMES, NERIS Consulting Unavail able JOSIAH, ZACKERY Referring Unavailable JOSIAH, ZACKERY Referring Unavailable ALEXANDER, COLUMBA Referring Unavailable ALEXANDER, COLUMBA Referring Unavailable ALEXANDER, COLUMBA Referring Unavailable ALEXANDER, COLUMBA Referring Unavailable ALEXANDER, COLUMBA Referring Unavailable ALEXANDER, COLUMBA Referring Unavailable ALEXANDER, COLUMBA Referring Unavailable ALEXANDER, COLUMBA Referring Unavailable WESLEY, MISTY Referring Unavailable ALEXANDER, COLUMBA Referring Unavailable MOUKARBEL, YUE Attending Unavailable MOUKARBEL, YUE Attending Unavailable MOUKARBEL, YUE Attending Unavailable ALEXANDER, COLUMBA Referring Unavailable JOSIAH, ZACKERY Admitting Unavailable JOSIAH, ZACKERY Attending Unavailable Hannah Gruber MD Primary Care Provider Avtar Barbosa MD Admit Provider Avtar Barbosa MD Attending Provider [phone] Avtar Barbosa MD Other Provider Derek QUIROGA, Ban Other Provider Unavailable Dorina RN, Debbie Other Provider Unavailable Suha RN, Noy Other Provider Unavailable Dottie RN, Opal Other Provider Unavailable Hayden RN, Jennifer Other Provider Unavailable Charlie RN, Erinn Other Provider Unavailable Aby James MD Other Provider Joe Islas DO Other Provider Alaina SEGURA, Jose Other Provider Scottie Coleman DO Other Provider Severiano Velasco MD Other Provider Dahiana Villegas MD Other Provider Daryl SLADE, Fernando Other Provider Unavailab Dilcia SEGURA, Rodrigo Other Provider Unavailable Cassandra Villalba APRN Other Provider [phone] Phi SEGURA, Alfredo Other Provider [phone] Azar Plaza MD Other Provider Unavailable Lauren Mijares MD Other Provider Fernando Fraser DO Other Provider Austen Hernandez MD Other Provider George Vallejo MD Other Provider Amalia COMMERCIAL REPORTER-C, Madison Johns Other Provider Desi Cartagena APRN Other Provider Unavailable Geoff SEGURA, Tobias Muñiz Other Provider Marcio SEGURA, Samm Other Provider Denae Andrew MD Other Provider Unavailable Chay Ayala DO Other Provider Fatemeh Pacheco APRN Other Provider Piyush Elliott DO Other Provider Saray SEGURA, Anjel Cage Other Provider [phone] Rani Gannon APRN Other Provider Kerry Roth APRN Other Provider Teresa SGEURA, Jude Other Provider Unavailable Howard Golden MD Other Provider [phone] Marcelle Gaston DO Other Provider David SEGURA, Donald Shannon Other Provider Samuel Espino MD Other Provider Liliana LICONA, Irma Other Provider Unavailable Robert SEGURA, Geoff Other Provider Trey Garrett MD Other Provider Clark SEGURA, Rodrigo Marr Other Provider Thaddeus Ramos MD Other Provider Leslie Nettles APRN Other Provider [phone] Madison Bauer APRN Other Provider [phone] Hanane QUIROGA, Jessy Other Provider Unavailable Rosemary Serra Attending Unavailable Rosemary Serra Admitting Unavailable Hannah Gruber Primary Care Unavailable Ban Reed Consulting Unavailable Hannah Gruber Primary Care Unavailable Avtar Barbosa Attending UnavailAvtar Giraldo Admitting Unavaila Debbie Roper Consulting Unavailable Noy Borden Consulting Unavailable Opal Sinclair Consulting Unavailable Jennifer Blake Consulting Unavailable Erinn Guerra Consulting Unavailable Aby James Consulting Unavailable Joe Islas Consulting Unavailable Joes Foley Consulting Unavailable Scottie Coleman Consulting UnavailSeveriano Bo Consulting Unavailable Dahiana Villegas Consulting Unavailable Fernando Brito Consulting Unavailable Rodrigo Ruelas Consulting Unavailable Cassandra Villalba Consulting UnavailAlfredo Underwood Consulting Unavailable Azar Plaza Consulting Unavailable Lauren Mijares Consulting Unavailable Fernando Fraser Consulting Unavailable Austen Hernandez Consulting Unavailable George Vallejo Consulting Unavailable Madison Holland Consulting Unavailable Desi Cartagena Consulting Unavailable Tobias Tellez Consulting UnavailSamm Buck Consulting Unavailable Denae Andrew Consulting Unavailable Chay Ayala Consulting Unavailable Fatemeh Pacheco Consulting Unavailable Piyush Elliott Consulting Unavailable DaromaAnjel townsend Consulting Unavailable Rani Gannon Consulting Unavailable Kerry Roth Consulting Unavailable Jude Moore Consulting Unavailable Howard Golden Consulting Unavailable Alek, Marcelle Consulting Unavailable Donald Hernandez P Consulting Unavailable Samuel Espino Consulting Unava ilable Borisov, Irma Consulting Unavailable Robert, Geoff Consulting Unavailable Gerry, Trey Kramer Consulting Unavailable Clark, Rodrigo Marr Consulting Unavailable Ramos, Thaddeus Consulting Unavailable Leslie Nettles Consulting Unavailable Bolzan-Asher, Nicoletto Consulting Unavaila huseyin Koo, Jessy Consulting Unavailable Klaege, Hannah Attending Unavailable Klaege, Hannah Primary Care Unavailable Klaege, Hannah Attending Unavailable Klaege, Hannah Admitting Unavailable Klaege, Hannah Primary Care Unavailable Klaege, Hannah Primary Care Unavailable Klaege, Hannah Attending Unavailable Klaege, Hannah Admitting Unavailable Klaege, Hannah Primary Care Unavailable Klaege, Hannah Attending Unavailable Klaege, Hannah Admitting Unavailable Klaege, Hannah Attending Unavailable Klaege, Hannah Admitting Unavailable Klaege, Hannah Primary Care Unavailable Klaege, Hannah Attending Unavailable Klaege, Hannah Admitting Unavailable Klaege, Hannah Primary Care Unavailable Klaege, Hannah Primary Care Unavailable Klaege, Hannah Attending Unavailable Klaege, Hannah Admitting Unavailable Klaege, Hannah Primary Care Unavailable Klaege, Hannah Attending Unavailable Klaege, Hannah Primary Care Unavailable Familia SEGURA, Avtar Pierce Admitting U lizbeth Barbosa MD, Avtar Pierce Attending U navailable Yasmani, Hannah Primary Care Unavailable Klaege, Hannah Attending Unavailable Klaege, Hannah Primary Care Unavailable Klaege, Hannah Attending Unavailable Klaege, Hannah Primary Care Unavailable Klaege, Hannah Primary Care Unavailable Klaege, Hannah Attending Unavailable Klaege, Hannah Attending Unavailable Klaege, Hannah Primary Care Unavailable Allergies Allergy Classification Reported Allergen(s) Allergy Type Date of Onset Reaction(s) Facility Aminoglycosides (antibiotic) (3 sources) Neomycin Drug Allergy 4 [facility] Opioid Agonists (3 sources) Meperidine Drug Allergy 4 [facility] (16 sources) Meperidine; Translations: [MEPERIDINE] Drug Allergy 1 Unknown Reaction [facility] (15 sources) Neomycin; Translations: [NEOMYCIN] Drug Allergy 1 Unknown Reaction [facility] (17 sources) Iodinated Contrast Media; Translations: [IODINATED CONTRAST MEDIA] Allergy to substance 4 Anaphylaxis [facility] (1 source) Environmental/S easonal Propensity to adverse reactions to substance 5 [facility] (1 source) Iodine; Translations: [IODINE] Drug Allergy 4 [facility] (1 source) Losartan; Translations: [LOSARTAN] Drug Allergy 5 [facility] (1 source) Contrast media; Translations: [contrast media (iodine-based)] Propensity to adverse reactions to drug (disorder) [facility] (1 source) House dust mite; Translations: [dust mites] Propensity to adverse reactions to drug (disorder) [facility] (1 source) Meperidine; Translations: [Demerol HCl] Drug Allergy [facility] (1 source) Mold Extract; Translations: [Mold] Drug Allergy [facility] Medications Current Medications Medication Drug Class(es) Dates Sig (Normalized) Sig (Original) Acetaminophen (20 sources) Start: 05-30-2025 acetaminophen (TYLENOL) tablet 650 mg Start: 02-11-2024 End: 06-07-2025 take 2 tablets by mouth three times daily Acetaminophen 500 mg Tablet Discontinued 1000 MG PO Three times daily February 11, 2024 12:00am June 07, 2025 6:39pm Start: 02-11-2024 take 1000 mg by mout h three times daily Acetaminophen Active 1000 MG PO Three times daily 90 February 11, 2024 12:00am Start: 01-01-2024 End: 01-30-2024 take 1 tablet by mouth every four hours as needed for pain Acetaminophen 500 mg Tablet Discontinued 500 MG PO Q4H as needed for Pain 60 January 01, 2024 12:00am January 30, 2024 3:09pm amLODIPine 2.5 mg oral tablet (20 sources) Dihydropyridine Calcium Channel Ross Start: 06-14-2025 take 1 tablet by mouth once daily Start: 06-14-2025 take 1 tablet by carlos th once daily Start: 02-11-2024 End: 06-14-2025 take 1 tablet by mouth once daily Amlodipine 10 mg Tablet Discontinued 10 MG PO Daily February 11, 2024 12:00am June 14, 2025 12:53pm Start: 12-21-2023 End: 02-11-2024 take 1 tablet by mouth once daily Amlodipine 5 mg Tablet Discontinued 5 MG PO Daily January 01, 2024 12:00am February 11, 2024 9:07am ascorbic acid 500 mg oral tablet (20 sources) Vitamin C Start: 01-30-2024 End: 02-11-2024 take 1 tablet by mouth once daily atorvastatin 40 mg oral tablet (20 sources) HMG-CoA Reductase Inhibitor Start: 06-14-2025 take 1 tablet by mouth once daily in the evening Start: 12-23-2023 End: 06-14-2025 take 1 tablet by mouth once daily in the evening Atorvastatin 40 mg Tablet Discontinued 40 MG PO Every evening January 01, 2024 12:00am February 11, 2024 9:07am calcium carbonate 1250 mg / cholecalciferol 200 unt oral tablet (2 sources) Vitamin D Start: 01-30-2024 End: 02-11-2024 take 1 tablet by mouth once at mealtime Calcium Carbonate-Vitamin D3 (Oyster Shell Calcium-Vit D3) 500 mg-5 mcg (200 unit) Tablet (11 sources) Start: 02-11-2024 take 1 tablet by mouth once at mealtime Calcium Carbonate-Vitami n D3 (Oyster Shell Calcium-Vit D3) 500 mg-5 mcg (200 unit) Tablet Active 1 TAB PO 3x/Day with meals February 11, 2024 12:00am Start: 01-30-2024 End: 02-11-2024 take 1 tablet by mouth once at mealtime Calcium Carbonate-Vitamin D3 (Oyster Shell Calcium-Vit D3) 500 mg-5 mcg (200 unit) Tablet Discontinued 1 TAB PO 3x/Day with meals January 30, 2024 12:00am February 11, 2024 9:07am Start: 01-30-2024 take 1 tablet by carlos th once at mealtime Calcium Carbonate-Vitamin D3 (Oyster Shell Calcium-Vit D3) 500 mg-5 mcg (200 unit) Tablet Active 1 TAB PO 3x/Day with meals January 30, 2024 12:00am diclofenac sodium 0.01 mg/mg topical gel (3 sources) Nonsteroidal Anti-inflammatory Drug Start: 06-29-2024 Start: 06-29-2024 Diclofenac Sod ium (Voltaren Arthritis Pain) 1 % gel Active 1 - 2 GM TOPICAL 2-4 TIMES PER DAY June 29, 2024 12:00am ferrous sulfate 324 mg delay ed release oral tablet (20 sources) Start: 02-11-2024 Start: 01-30-2024 End: 02-11-2024 take 1 tablet by mouth twice daily Ferrous Sulfate 324 mg (65 mg iron) Tablet,Delayed Release (Dr/Ec) Discontinued 324 MG PO Twice daily January 30, 2024 12:00am February 11, 2024 9:07am latanoprost 0.05 mg/ml ophthalmic solution (20 sources) Prostaglandin Analog Start: 02-11-2024 take 1 drop(s) into the eye(s) at bedtime Latanoprost 0.005 % Drops Active 1 DROPS EYE-BOTH Bedtime 10 21February 11, 2024 12:00am Complies with drug therapy Start: 02-11-2024 take 1 drop(s) into the eye(s) at bedtime Latanoprost Active 1 DROPS EYE-BOTH Bedtime 10 21February 11, 2024 12:00am Start: 12-21-2023 End: 02-11-2024 take 1 drop(s) into the eye(s) once daily Latanoprost 0.005 % Drops Discontinued 1 DROPS EYE-BOTH Daily 10 21January 01, 2024 12:00am February 11, 2024 9:07am Start: 12-21-2023 End: 02-11-2024 take 1 drop(s) into the eye(s) once daily Latanoprost Discontinued 1 DROPS EYE-BOTH Daily 10 21January 01, 2024 12:00am February 11, 2024 9:07am Start: 12-21-2023 End: 02-11-2024 lidocaine 0.04 mg/mg medicated patch (1 source) Antiarrhythmic, Amide Local Anesthetic Start: 06-02-2025 1 patch, TransDERmal, Administer over 12 Hours, DAILY, First dose on Fri06/02/25 at 0400, Substituted for Lidocaine 5% Patch.apply to painful area right buttock The maintenance truck driver's recommendations for the number of patches that can be applied within a 24-hour period varies from 1 to 4 times daily and the duration of application varies from 8 to 24 hours; refer to the maintenance truck driver's labeling for product-specific recommendations. loratadine 10 mg oral tablet (20 sources) Start: 01-01-2024 End: 02-11-2024 take 1 tablet by mouth once daily 50 ml magnesium sulfate 40 mg/ml injection (1 source) Start: 05-30-2025 melatonin 5 mg oral tablet (2 sources) Start: 06-14-2025 take 2 tablets by mouth once daily at bedtime Start: 06-03-2025 take 3 mg by mouth o nce daily as needed 3 mg, Oral, NIGHTLY PRN, Starting on Fri06/03/25 at 2021, Until Discontinued, Sleep Multivitamin With Folic Acid (Thera) 400 mcg Tablet (15 sources) Start: 02-11-2024 take 1 tablet by carlos th once daily Start: 02-11-2024 take 1 tablet by carlos th once daily Multivitamin With Folic Acid (Thera) 400 mcg Tablet Active 1 TAB PO Daily February 11, 2024 12:00am Start: 01-01-2024 End: 02-11-2024 take 1 tablet by mouth once daily Multivitamin With Folic Acid (Thera) 400 mcg Tablet Discontinued 1 TAB PO Daily January 01, 2024 12:00am February 11, 2024 9:07am Start: 01-01-2024 take 1 tablet by carlos th once daily Multivitamin With Folic Acid (Thera) 400 mcg Tablet Active 1 TAB PO Daily January 01, 2024 12:00am ondansetron (ZOFRAN-ODT) disintegrating tablet 4 mg (1 source) Start: 05-30-2025 ondansetron (ZOFRAN-ODT) disintegrating tablet 4 mg polyethylene glycol 3350 29362 mg powder for oral solution (1 source) Osmotic Laxative Start: 05-30-2025 Potassium Chloride (1 source) Start: 05-30-2025 potassium chloride (KLOR-CON M) extended release tablet 40 mEq rivaroxaban 20 mg oral tablet (4 sources) Factor Xa Inhibitor Start: 06-06-2025 End: 06-14-2025 take 1 tablet by mouth once daily at dinner Rivaroxaban 20 mg tablet Active 20 MG PO Daily June 14, 2025 12:52pm must administer with evening meal Complies with drug therapy Sennosides (Senna Laxative) 8.6 mg Tablet (5 sources) Start: 02-11-2024 take 1 tablet by mouth once daily Sennosides (Senna Laxative) 8.6 mg Tablet Active 8.6 MG PO DAILY@12 February 11, 2024 12:00am (20 sources) Start: 02-11-2024 Start: 01-30-2024 End: 02-11-2024 Start: 01-01-2024 End: 02-11-2024 Start: 12-21-2023 End: 01-01-2024 Completed/Discontinued Medications Medication Drug Class(es) Dates Sig (Normalized) Sig (Original) acetaminophen 325 mg / HYDROcodone bitartrate 5 mg oral tablet (12 sources) Opioid Agonist Start: 06-02-2025 End: 06-02-2025 take 1 tablet by mouth every twenty-four hours 1 tablet, Oral, Once, 1 dose, On Twila 06/02/25 at 0400, Maximum dose of acetaminophen is 4000 mg from all sources in 24 hours. Start: 01-30-2024 End: 02-11-2024 take 1 tablet by mouth every four hours as needed for pain Hydrocodone-Acetaminophen 5-325 mg Table t Discontinued 1 TAB PO Q4H as needed for Pain 0 January 30, 2024 February 11, 2024 9:07am Start: 01-30-2024 End: 02-11-2024 apixaban 5 mg oral tablet (3 sources) Factor Xa Inhibitor Start: 06-29-2024 End: 06-07-2025 Apixaban (Eliquis) 5 mg tablet Discontinued 5 MG PO June 29, 2024 12:00am June 07, 2025 6:38pm aspirin 81 mg delayed release oral tablet (20 sources) Platelet Aggregation Inhibitor, Nonsteroidal Anti-inflammatory Drug Start: 12-23-2023 End: 02-11-2024 take 1 tablet by mouth once daily Aspirin 81 mg Tablet,Delayed Release (Dr/Ec) Discontinued 81 MG PO Daily January 01, 2024 12:00am February 11, 2024 9:07am DULoxetine 60 mg delayed release oral capsule (20 sources) Serotonin and Norepinephrine Reuptake Inhibitor Start: 12-21-2023 End: 02-11-2024 take 1 capsule by mouth once daily Duloxetine 60 mg Capsule,Delayed Release(Dr/Ec) Discontinued 60 MG PO Daily January 01, 2024 12:00am February 11, 2024 9:07am 0.3 ml enoxaparin sodium 100 mg/ml prefilled syringe (11 sources) Low Molecular Weight Heparin Start: 01-30-2024 End: 02-11-2024 Enoxaparin (Lovenox) 30 mg/0.3 mL Syringe Discontinued 30 MG SUBCUT BID@1000,2200 0 January 30, 2024 12:00am February 11, 2024 9:07am fexofenadine hydrochloride 60 mg oral tablet (11 sources) Histamine-1 Receptor Antagonist Start: 12-21-2023 End: 01-01-2024 take 1 tablet by mouth twice daily Fexofenadine (Graciela Allergy) 60 mg tablet Discontinued 60 MG PO Twice daily December 21, 2023 12:00am January 01, 2024 9:21am fluticasone propionate 0.05 mg/actuat metered dose nasal spray (20 sources) Corticosteroid Start: 12-21-2023 End: 02-11-2024 Fluticasone Propionate 50 mcg/actuation [place],Suspension Discontinued 2 SPRAY INTRANASAL Daily as needed for allergy symptoms 10 21January 01, 2024 12:00am February 11, 2024 9:07am Start: 12-21-2023 End: 02-11-2024 250 ml heparin sodium, porcine 100 unt/ml injection (4 sources) Unfractionated Heparin, Anti-coagulant Start: 05-30-2025 End: 05-31-2025 4,000 Units, IntraVENous, ONCE, 1 dose, On Fri05/30/25 at 2315, Initial one time bolus Start: 05-30-2025 End: 06-06-2025 5-30 Units/kg/hr 80.2 kg (4. 01-24.06 mL/hr, rounded to 4-24.1 mL/hr), IntraVENous, CONTINUOUS, Starting on Fri06/05/25 at 1600, Until Fri06/06/25 at 1439, Heparin Weight-Based Infusion (NEURO/HIGH BLEED RISK/NO BOLUS) Patient weight: 80.2 kg Initial Infusion rate: 12 Units/kg/hr (Initial bolus = NONE) Hang infusion immediately after drawing initial labs. Do NOT use ANY Anti-Xa drawn prior to initiation of infusion for titration. Check Anti-Xa 6 hours after initiation and 6 hours after every dose change for any titrations. Adjust infusion rate based on Anti-Xa results as listed below. Rate adjustments are to be based on initial weight of 80.2 kg. Anti-Xa hydroCHLOROthiazide 25 mg oral tablet (20 sources) Thiazide Diuretic Start: 12-21-2023 End: 02-11-2024 take 1 tablet by mouth once daily Hydrochlorothiazide 25 mg Tablet Discontinued 25 MG PO Daily January 01, 2024 12:00am February 11, 2024 9:07am 1 ml LORazepam 2 mg/ml injection (2 sources) Benzodiazepine Start: 06-01-2025 End: 06-01-2025 inject 0.5 mg intravenously once 0.5 mg, IntraVENous, ONCE, 1 dose, On Fri06/01/25 at 0130, Immediately prior to intravenous use, lorazepam Injection must be diluted with at least an equal volume of compatible solution (NS or D5W). Start: 05-31-2025 End: 05-31-2025 take 0.5 mg by mouth once as needed 0.5 mg, Oral, ONCE PRN, 1 dose, Starting on Fri05/31/25 at 1138, Until Fri05/31/25 at 1431, Anxiety, Prior to MRI, Prior to MRI Multivitamin (Daily Multi-Vitamin) tablet (11 sources) Start: 12-21-2023 End: 01-01-2024 take 1 tablet by mouth once daily Multivitamin (Daily Multi-Vitamin) tablet Discontinued 1 TAB PO Daily December 21, 2023 12:00am January 01, 2024 9:21am Start: 12-21-2023 take 1 tablet by carlos th once daily Multivitamin (Daily Multi-Vitamin) tablet Active 1 TAB PO Daily December 21, 2023 12:00am nystatin 100 unt/mg topical powder (20 sources) Polyene Antifungal Start: 01-01-2024 End: 06-07-2025 Nystatin (Nystop) 100,000 unit/gram Powder Discontinued 1 APPLIC TOPICAL Twice daily 10 05February 11, 2024 12:00am June 07, 2025 6:38pm Start: 01-01-2024 End: 02-11-2024 QUEtiapine 25 mg oral tablet (2 sources) Atypical Antipsychotic Start: 06-01-2025 End: 06-02-2025 take 1 dose by mouth once 50 mg, Oral, Once, 1 dose, On Twila 06/02/25 at 2100 sennosides, jail 8.6 mg oral tablet (1 source) Start: 02-11-2024 End: 06-07-2025 take 1 tablet by mouth once daily as needed Sennosides (Senna Laxative) 8.6 mg Tablet Discontinued 8.6 MG PO DAILY@12 as needed for If no BM in 2 days February 11, 2024 12:00am June 07, 2025 6:38pm 5 ml sodium chloride 9 mg/ml injection (3 sources) Start: 05-30-2025 5-40 mL, IntraVENous, EVERY 12 HOURS SCHEDULED (2 times per day), First dose on Fri05/30/25 at 2100, Until Discontinued, For Line Patency: Peripheral IV = 5 mL; Midline or Central Line = 10 mL/lumen. If following IV push medication, administer flush at same rate as the IV push. Flush volume is determined by type of infusion therapy being given. For non-viscous solutions use: Peripheral IV = 5 mL Midline or Central Line = 10 mL/lumen For viscous solutions (i.e. blood components, parenteral nutrition, contrast media, or after obtaining blood sample) use: Peripheral IV = 10 mL Midline or Central Line = 20 mL/lumen Start: 05-30-2025 Start: 05-30-2025 take 10 mL intraveno usly once as needed 10 mL, IntraVENous, PRN, Starting on Fri05/30/25 at 1944, Until Discontinued, Line Care, After every IV line use traZODone hydrochloride 50 mg oral tablet (1 source) Serotonin Reuptake Inhibitor Start: 06-05-2025 End: 06-05-2025 take 1 dose by mouth once 50 mg, Oral, Once, 1 dose, On 06/05/25 at 0115 Start: 06-05-2025 End: 06-05-2025 take 1 dose by mouth once 50 mg, Oral, Once, 1 dose, O n 06/05/25 at 0115 Problems Active Problems Problem Classification Problem Date Documented Da te Episodic/Chronic Acute cerebrovascular disease (20 sources) Cerebrovascular accident; Translations: [Cerebral infarction, unspecified] Onset: 05-31-2025 12-21-2023 Chronic Acute myocardial infarction (2 sources) Myocardial infarction; Translations: [Non-ST elevation (NSTEMI) myocardial infarction] Onset: 05-31-2025 05-31-2025 Chronic Acute posthemorrhagic anemia (14 sources) Anemia following acute postoperative blood loss; Translations: [Acute posthemorrhagic anemia] 01-30-2024 Episodic Administrative/social admission (20 sources) Other reduced mobility; Translations: [Impaired mobility and activities of daily living] Onset: 06-07-2025 12-24-2023 Episodic Anxiety disorders (20 sources) Anxiety; Translations: [Anxiety disorder, unspecified] 12-22-2023 Chronic Blindness and vision defects (2 sources) Right homonymous hemianopsia; Translations: [Homonymous bilateral field defects, right side] Onset: 06-06-2025 06-06-2025 Episodic Cardiac dysrhythmias (5 sources) Paroxysmal atrial fibrillation; Translations: [Paroxysmal atrial fibrillation] Onset: 06-18-2024 Chronic Cardiac dysrhythmias (2 sources) Palpitations; Translations: [Palpitations] Onset: 05-30-2025 Episodic Coronary atherosclerosis and other heart disease (2 sources) Acute coronary syndrome; Translations: [Acute ischemic heart disease, unspecified] Onset: 06-01-2025 06-01-2025 Chronic Deficiency and other anemia (10 sources) Anemia; Translations: [Anemia, unspecified] 01-31-2024 Episodic Deficiency and other anemia (1 source) Anemia, unspecified; Translations: [Anemia, unspecified] 02-11-2024 Episodic Disorders of lipid metabolism (15 sources) Dyslipidemia; Translations: [Hyperlipidemia, unspecified] Onset: 09-06-2024 01-31-2024 Chronic E Codes: Fall (12 sources) Fall; Translations: [Unspecified fall, initial encounter] 01-31-2024 Episodic Essential hypertension (20 sources) Hypertensive disorder; Translations: [Essential (primary) hypertension] Onset: 06-17-2024 12-21-2023 Chronic Glaucoma (11 sources) Glaucoma; Translations: [Unspecified glaucoma] 01-31-2024 Chronic Mood disorders (2 sources) Depressive disorder; Translations: [Depression] Onset: 05-31-2025 05-31-2025 Chronic Nonspecific chest pain (4 sources) Chest pain; Translations: [Chest pain, unspecified] Onset: 06-01-2025 05-31-2025 Episodic Open wounds of extremities (20 sources) Laceration of forearm; Translations: [Laceration without foreign body of unspecified forearm, initial encounter] 01-28-2024 Episodic Osteoporosis (4 sources) Senile osteoporosis; Translations: [Age-related osteoporosis without current pathological fracture] 05-25-2024 Chronic Other aftercare (2 sources) Taking high risk medication; Translations: [Other intermediate accountant (current) drug therapy] Onset: 06-05-2025 06-05-2025 Episodic Other circulatory disease (11 sources) History of cerebrovascular accident; Translations: [Personal history of transient ischemic attack (TIA), and cerebral infarction without residual deficits] 01-31-2024 Episodic Other circulatory disease (3 sources) Personal history of transient ischemic attack (TIA), and cerebral infarction without residual deficits; Translations: [Personal history of transient ischemic attack (TIA), and cerebral infarction without residual deficits] Onset: 06-07-2025 01-30-2024 Episodic Other connective tissue disease (11 sources) History of repair of hip joint; Translations: [Presence of unspecified artificial hip joint] 01-30-2024 Chronic Other connective tissue disease (1 source) Presence of unspecified artificial hip joint; Translations: [Hip joint replacement] 02-11-2024 Chronic Other connective tissue disease (2 sources) Trochanteric bursitis; Translations: [Trochanteric bursitis, right hip] 06-29-2024 Episodic Other connective tissue disease (2 sources) Trochanteric bursitis, right hip; Translations: [Enthesopathy of hip region] 06-29-2024 Episodic Other connective tissue disease (2 sources) Neurological symptom; Translations: [Unspecified symptoms and signs involving the nervous system] Onset: 05-30-2025 05-30-2025 Episodic Other connective tissue disease (1 source) Trochanteric bursitis of right hip; Translations: [Trochanteric bursitis, right hip] 06-29-2024 Episodic Other gastrointestinal disorders (14 sources) Oropharyngeal dysphagia; Translations: [Dysphagia, oropharyngeal phase] 12-22-2023 Episodic Other gastrointestinal disorders (15 sources) Dysphagia, oropharyngeal phase; Translations: [Dysphagia, oropharyngeal phase] 12-23-2023 Episodic Other lower respiratory disease (10 sources) Hypoxia; Translations: [Hypoxemia] 01-31-2024 Episodic Other lower respiratory disease (1 source) Hypoxemia; Translations: [Hypoxemia] 02-11-2024 Episodic Other nervous system disorders (17 sources) Expressive dysphasia; Translations: [Aphasia] Onset: 05-31-2025 12-22-2023 Chronic Other nervous system disorders (13 sources) Aphasia; Translations: [Aphasia] Onset: 06-07-2025 12-23-2023 Chronic Other nervous system disorders (14 sources) Paragraphia; Translations: [Other symbolic dysfunctions] 12-22-2023 Episodic Other nervous system disorders (15 sources) Other symbolic dysfunctions; Translations: [Other symbolic dysfunction] 12-23-2023 Episodic Other nutritional; endocrine; and metabolic disorders (11 sources) Hypomagnesemia; Translations: [Hypomagnesemia] 01-29-2024 Chronic Other nutritional; endocrine; and metabolic disorders (7 sources) Hypomagnesemia; Translations: [Disorders of magnesium metabolism] 01-30-2024 Chronic Other screening for suspected conditions (not mental disorders or infectious disease) (2 sources) Echocardiogram abnormal; Translations: [Abnormal findings on diagnostic imaging of heart and coronary circulation] Onset: 06-03-2025 06-03-2025 Episodic Other upper respiratory disease (10 sources) Seasonal allergy; Translations: [Other seasonal allergic rhinitis] 01-31-2024 Chronic Other upper respiratory disease (1 source) Other seasonal allergic rhinitis; Translations: [Allergic rhinitis, cause unspecified] 02-11-2024 Chronic Charissa-; endo-; and myocarditis; cardiomyopathy (except that caused by tuberculosis or sexually transmitted disease) (4 sources) Cardiomyopathy; Translations: [Cardiomyopathy, unspecified] Onset: 06-01-2025 05-31-2025 Chronic Residual codes; unclassified (9 sources) Postprocedural state finding; Translations: [Other specified postprocedural states] 02-19-2024 Episodic Residual codes; unclassified (1 source) Other specified health status; Translations: [Other specified health status] Onset: 06-07-2025 Episodic Spondylosis; intervertebral disc disorders; other back problems (5 sources) Sacroiliac joint pain; Translations: [Sacrococcygeal disorders, not elsewhere classified] 06-29-2024 Episodic Unclassified (2 sources) follow up as needed Past or Other Problems Problem Classification Problem Date Documented Date Episodic/Chronic Fracture of neck of femur (hip) (20 sources) Subcapital fracture of neck of femur; Translations: [Unspecified intracapsular fracture of right femur, initial encounter for closed fracture] Onset: 06-29-2024 01-28-2024 Episodic Other connective tissue disease (2 sources) Repeated falls; Translations: [Repeated falls] Onset: 09-06-2024 Episodic Other nervous system disorders (2 sources) Other abnormalities of gait and mobility; Translations: [Other abnormalities of gait and mobility] Onset: 09-06-2024 Episodic Residual codes; unclassified (17 sources) Other specified postprocedural states; Translations: [Other postprocedural status] Onset: 06-29-2024 02-20-2024 Episodic Residual codes; unclassified (2 sources) Localized edema; Translations: [Localized edema] Onset: 09-06-2024 Episodic Results Test Name Value Interpretation Reference Range Facility Outside [facility] 06-21-2025 Outside Records [id number]#1.00[facility] Outside Records [id number]#1.00[facility] Lab - Other Lab [facility] Lab - Other Lab Results [id number]#1.00[facility] Outside [facility] 06-20-2025 Outside Records [id number]#1.00[facility] Outside Records [id number]#1.00[facility] Outside [facility] 06-16-2025 Outside Records [id number]#1.00[facility] Outside [facility] 06-15-2025 Outside Records [id number]#1.00[facility] Provider Orderson 06-14-2025 Provider Orders [id number]#1.00[facility] Outside [facility] 06-13-2025 Outside Records [id number]#1.00[facility] Outside [facility] 06-10-2025 Outside Records [id number]#1.00[facility] Outside [facility] 06-09-2025 Outside Records [id number]#1.00[facility] Complete Blood Count Auto Di ffon 06-08-2025 Basophils (Bld) [#/Vol] 0.1 10*3/uL Normal 0.0-0.2 [facility] Comment on above: Result Comment: PERF ORMED BY: [place] [id number] PATHOLOGIST [employer]PERVIS[employer] NICK MOREL M.D. Performed By: #### P AB, CMP, CBC #### [facility] [address] [place] [address] [place] Basophils/100 WBC (Bld) 1.2 % Normal . [facility] Comment on above: Performed By: #### P AB, CMP, CBC #### [facility] [address] [place] [address] [place] Eosinophils (Bld) [#/Vol] 0.2 10*3/uL Normal 0.0-0.45 [facility] Comment on above: Performed By: #### P AB, CMP, CBC #### [facility] [address] [place] [address] [place] Eosinophils/100 WBC (Bld) 4.5 % Normal . [facility] Comment on above: Performed By: #### P AB, CMP, CBC #### [address] Erythrocyte distribution width (RBC) [Ratio] 16.3 % High 11.9-15.3 [facility] Comment on above: Performed By: #### P AB, CMP, CBC #### [address] Hematocrit (Bld) [Volume fraction] 26.7 % Low 34.0-46.4 [facility] Comment on above: Performed By: #### P AB, CMP, CBC #### [address] Hemoglobin (Bld) [Mass/Vol] 8.4 g/dL Low 11.8-15.4 [facility] Comment on above: Performed By: #### P AB, CMP, CBC #### [address] Lymphocytes (Bld) [#/Vol] 0.8 10*3/uL Low 1.00-4.8 [facility] Comment on above: Performed By: #### P AB, CMP, CBC #### [address] Lymphocytes/100 WBC (Bld) 14.1 % Normal . [facility] Comment on above: Performed By: #### P AB, CMP, CBC #### [address] MCH (RBC) [Entitic mass] 23.5 pg Low 24.7-34.3 [facility] Comment on above: Performed By: #### P AB, CMP, CBC #### [address] MCV (RBC) [Entitic vol] 75.1 fL Low 80-100 [facility] Comment on above: Performed By: #### P AB, CMP, CBC #### [address] Mean Corpuscular HGB Conc 31.3 g/dL Low 32.0-35.0 [facility] Comment on above: Performed By: #### P AB, CMP, CBC #### [facility] [address] [place] [address] [place] Monocytes (Bld) [#/Vol] 0.5 10*3/uL Normal 0.0-0.8 [facility] Comment on above: Performed By: #### P AB, CMP, CBC #### [facility] [address] [place] [address] [place] Monocytes/100 WBC (Bld) 9.4 % Normal . [facility] Comment on above: Performed By: #### P AB, CMP, CBC #### [facility] [address] [place] [address] [place] Neutrophils (Bld) [#/Vol] 3.9 10*3/uL Normal 1.8-7.7 [facility] Comment on above: Performed By: #### P AB, CMP, CBC #### [facility] [address] [place] [address] [place] Neutrophils/100 WBC (Bld) 70.8 % Normal . [facility] Comment on above: Performed By: #### P AB, CMP, CBC #### [facility] [address] [place] [address] [place] NRBC% 0.0 /100{WBC} Normal 0-0.5 [facility] Comment on above: Performed By: #### P AB, CMP, CBC #### [facility] [address] [place] [address] [place] Platelet mean volume (Bld) [Entitic vol] 8.5 fL Normal 6.3-10.[address] [facility] Comment on above: Performed By: #### P AB, CMP, CBC #### [facility] [address] [place] [address] [place] Platelets (Bld) [#/Vol] 265 10*3/uL Normal 150-450 [facility] Comment on above: Performed By: #### P AB, CMP, CBC #### [facility] [address] [place] [address] [place] RBC (Bld) [#/Vol] 3.56 10*6/uL Low 3.60-5.00 [facility] Comment on above: Performed By: #### P AB, CMP, CBC #### [address] WBC (Bld) [#/Vol] 5.5 10*3/uL Normal 3.8-11.6 [facility] Comment on above: Performed By: #### P AB, CMP, CBC #### [address] White Blood Count 5.5 [CFU]/mL Normal 3.8-11.6 [facility] Comment on above: Performed By: #### P AB, CMP, CBC #### [address] Comprehensive Metabolic Pane june 06-08-2025 Albumin [Mass/Vol] 3.3 g/dL Low 3.5-5.7 [facility] Comment on above: Performed By: #### P AB, CMP, CBC #### [address] Albumin/Globulin [Mass ratio] 1.3 {ratio} Normal [facility] Comment on above: Performed By: #### P AB, CMP, CBC #### [address] ALP [Catalytic activity/Vol] 74 U/L Normal 34-104 [facility] Comment on above: Performed By: #### P AB, CMP, CBC #### [address] ALT [Catalytic activity/Vol] 9 U/L Normal 7-52 [facility] Comment on above: Performed By: #### P AB, CMP, CBC #### [address] Anion gap [Moles/Vol] 9.1 mmol/L Normal 6.0-15.0 [facility] Comment on above: Performed By: #### P AB, CMP, CBC #### [place] [id number] [place] AST [Catalytic activity/Vol] 13 U/L Normal 13-39 [facility] Comment on above: Performed By: #### P AB, CMP, CBC #### [address] Bilirubin [Mass/Vol] 0.3 mg/dL Normal 0.3-1.0 [facility] Comment on above: Performed By: #### P AB, CMP, CBC #### [address] Calcium [Mass/Vol] 8.7 mg/dL Normal 8.6-10.3 [facility] Comment on above: Performed By: #### P AB, CMP, CBC #### [address] Chloride [Moles/Vol] 105 mmol/L Normal 98-107 [facility] Comment on above: Performed By: #### P AB, CMP, CBC #### [address] CO2 [Moles/Vol] 28.8 mmol/L Normal 21.0-31.0 [facility] Comment on above: Performed By: #### P AB, CMP, CBC #### [address] Creatinine [Mass/Vol] 0.65 mg/dL Normal 0.60-1.20 [facility] Comment on above: Performed By: #### P AB, CMP, CBC #### [address] Creatinine Clr Calc Pharmacy 57.64 Normal [facility] Comment on above: Performed By: #### P AB, CMP, CBC #### [place] [address] [place] GFR/1.73 sq M.predicted MDRD (S/P/Bld) [Vol rate/Area] mL/min/{1.73_m2} Normal [facility] Comment on above: Performed By: #### P AB, CMP, CBC #### [address] [place] [address] [place] Globulin (S) [Mass/Vol] 2.6 g/dL Normal [facility] Comment on above: Performed By: #### P AB, CMP, CBC #### [address] Glucose [Mass/Vol] 100 mg/dL Normal 70-100 [facility] Comment on above: Result Comment: [facility] Glucose Reference Range is dependent on time and content of last meal. Glucose of more than 200 mg/dL in a nonstressed, ambulatory subject supports the diagnosis of Diabetes Mellitus. ADA recommended reference range Performed By: #### P AB, CMP, CBC #### [address] Potassium [Moles/Vol] 3.9 mmol/L Normal 3.5-5.1 [facility] Comment on above: Performed By: #### P AB, CMP, CBC #### [address] Protein [Mass/Vol] 5.9 g/dL Low 6.4-8.9 [facility] Comment on above: Performed By: #### P AB, CMP, CBC #### [address] Sodium [Moles/Vol] 139 mmol/L Normal 136-145 [facility] Comment on above: Performed By: #### P AB, CMP, CBC #### [address] Urea nitrogen [Mass/Vol] 17 mg/dL Normal 7-25 [facility] Comment on above: Performed By: #### P AB, CMP, CBC #### [address] Prealbuminon 06-08-2025 Prealbumin [Mass/Vol] 16.4 mg/dL Low 17.0-34.0 [facility] Comment on above: Result Comment: PERF ORMED BY: [place] [id number] PATHOLOGIST SUPERVISOR [employer] NICK MOREL M.D. Performed By: #### P AB, CMP, CBC #### [facility] [address] Basic Metabolic Panelon 05-23 Anion gap [Moles/Vol] 8 mmol/L Low 9 - 16 mmol/L [facility] Calcium [Mass/Vol] 9.1 mg/dL 8.6 - 10. 4 mg/dL [facility] Chloride [Moles/Vol] 104 mmol/L 98 - 10 7 mmol/L [facility] CO2 [Moles/Vol] 25 mmol/L 20 - 31 mmol/L [facility] Creatinine [Mass/Vol] 0.8 mg/dL 0.6 - 0.9 mg/dL [facility] Est, Glom Filt Rate 74 - PINF [facility] Comment on above: These results are not intended for use [...] following therapy that affects renal tubular secretion. Glucose [Mass/Vol] 98 mg/dL 74 - 99 mg/dL [facility] Interpretation and review of laboratory results Abnormal [facility] Potassium [Moles/Vol] 3.9 mmol/L 3.7 - 5.3 mmol/L [facility] Sodium [Moles/Vol] 137 mmol/L 136 - 145 mmol/L [facility] Urea nitrogen [Mass/Vol] 19 mg/dL 8 - 23 mg/dL [facility] Basic Metabolic Profon 06-07 Anion gap [Moles/Vol] 8 mmol/L Low 9-16 [facility] Comment on above: Performed By: #### B MP, MG, CDP, SUJATA #### [facility] [address] [place] [address] Founder Ceo & President: Buddy Drake MD Calcium [Mass/Vol] 9.1 mg/dL Normal 8.6-10.4 [facility] Comment on above: Performed By: #### B MP, MG, CDP, SUJATA #### [facility] [address] [place] [phone] Founder Ceo & President: Buddy Drake MD Chloride [Moles/Vol] 104 mmol/L Normal 98-107 [facility] Comment on above: Performed By: #### B MP, MG, CDP, SUJATA #### [facility] [address] [place] [id number] Founder Ceo & President: Buddy Drake MD CO2 [Moles/Vol] 25 mmol/L Normal 20-31 [facility] Comment on above: Performed By: #### B MP, MG, CDP, SUJATA #### [address] [address] Founder Ceo & President: Buddy Drake MD Creatinine [Mass/Vol] 0.8 mg/dL Normal 0.6-0.9 [facility] Comment on above: Performed By: #### B MP, MG, CDP, SUJATA #### [address] [address] Founder Ceo & President: Buddy Drake MD GFR/1.73 sq M.predicted among non-blacks MDRD (S/P/Bld) [Vol rate/Area] 74 mL/min/{1.73_m2} Normal >60 [facility] Comment on above: Result Comment: These results are not intended for [...] following therapy that affects renal tubular secretion. Performed By: #### B MP, MG, CDP, SUJATA #### [address] [address] Founder Ceo & President: Buddy Drake MD Glucose [Mass/Vol] 98 mg/dL Normal 74-99 [facility] Comment on above: Performed By: #### B MP, MG, CDP, SUJATA #### [facility] [place] [address] Founder Ceo & President: Buddy Drake MD Potassium [Moles/Vol] 3.9 mmol/L Normal 3.7-5.3 [facility] Comment on above: Performed By: #### B MP, MG, CDP, SUJATA #### [facility] [address] [place] [address] [id number] Founder Ceo & President: Buddy Drake MD Sodium [Moles/Vol] 137 mmol/L Normal 136-145 [facility] Comment on above: Performed By: #### B MP, MG, CDP, SUJATA #### [facility] [address] [place] [address] [id number] Founder Ceo & President: Buddy Drake MD Urea nitrogen [Mass/Vol] 19 mg/dL Normal 8-23 [facility] Comment on above: Performed By: #### B MP, MG, CDP, SUJATA #### [facility] [address] [place] [id number] Founder Ceo & President: Buddy Drake MD CBC with Auto Differentialon 06-07-2025 Basophils (Bld) [#/Vol] 0.06 10*3/uL [facility] [facility] Basophils/100 WBC (Bld) 1 % 0 - 2 % [facility] Eosinophils (Bld) [#/Vol] 0.26 10*3/uL [facility] Eosinophils/100 WBC (Bld) 4 % 1 - 4 % [facility] Erythrocyte distribution width (RBC) [Ratio] 15.5 % High 11.8 - 14.4 % [facility] Hematocrit (Bld) [Volume fraction] 29.0 % Low 36.3 - 47.1 % [facility] Hemoglobin (Bld) [Mass/Vol] 8.3 g/dL Low 11.9 - 15.1 g/dL [facility] Immature granulocytes (Bld) [#/Vol] 0.09 10*3/uL [facility] Immature granulocytes/100 WBC (Bld) 1 % High 0 [facility] Interpretation and review of laboratory results Abnormal [facility] Lymphocytes/100 WBC (Bld) 18 % Low 24 - 43 % [facility] Lymphocytes/100 WBC (Bld) 1.22 % [facility] MCH (RBC) [Entitic mass] 22.6 pg Low 25.2 - 33.5 pg [facility] MCHC (RBC) [Mass/Vol] 28.6 g/dL 28.4 - 34.8 g/dL [facility] MCV (RBC) [Entitic vol] 79.0 fL Low 82.6 - 102.9 fL [facility] Monocytes/100 WBC (Bld) 10 % 3 - 12 % [facility] Monocytes/100 WBC (Bld) 0.64 % [facility] Neutrophils/100 WBC (Bld) 66 % High 36 - 65 % [facility] Nucleated RBC/100 WBC (Bld) [Ratio] 0.0 % 0.0 per 100 WBC [facility] Platelet mean volume (Bld) [Entitic vol] 10.0 fL 8.1 - 13.5 fL [facility] Platelets (Bld) [#/Vol] 255 10*3/uL [facility] RBC (Bld) [#/Vol] 3.67 10*6/uL Low 3.95 - 5.11 m/uL [facility] RBC (Bld) [#/Vol] ANISOCYTOSIS PRESENT MICROCYTOSIS PRESENT [facility] Segmented neutrophils/100 WBC (Bld) 4.40 % [facility] WBC other (Bld) [#/Vol] 6.7 [facility] CBC with Diffon 06-07-2025 Abs. Basophil 0.06 k/uL Normal 0.00-0.20 [facility] Comment on above: Performed By: #### B MP, MG, CDP, SUJATA #### [employer] [address] [place] [address] Founder Ceo & President: Buddy Drake MD Abs.Imm.Granulocyte 0.09 k/uL Normal 0.00-0.30 [facility] Comment on above: Performed By: #### B MP, MG, CDP, SUJATA #### [facility] [employer] [address] [place] [phone] Founder Ceo & President: Buddy Drake MD Abs.Neutrophil (Seg) 4.40 k/uL Normal 1.50-8.10 [facility] Comment on above: Performed By: #### B MP, MG, CDP, SUJATA #### [facility] [employer] [address] [place] [phone] Founder Ceo [employer] President: Buddy Drake MD Basophils/100 WBC (Bld) 1 % Normal 0-2 [facility] Comment on above: Performed By: #### B MP, MG, CDP, SUJATA #### [facility] [employer] [address] [place] [address] Founder Ceo & President: Buddy Drake MD Eosinophils (Bld) [#/Vol] 0.26 10*3/uL Normal 0.00-0.44 [facility] Comment on above: Performed By: #### B MP, MG, CDP, SUJATA #### [facility] [employer] [address] [place] [address] Founder Ceo & President: Buddy Drake MD Eosinophils/100 WBC (Bld) 4 % Normal 1-4 [facility] Comment on above: Performed By: #### B MP, MG, CDP, SUJATA #### [facility] [employer] [address] [place] [phone] Founder Ceo & President: Buddy Drake MD Erythrocyte distribution width (RBC) [Ratio] 15.5 % High 11.8-14.4 [facility] Comment on above: Performed By: #### B MP, MG, CDP, SUJATA #### [facility] [employer] [address] [place] [address] Founder Ceo & President: Buddy Drake MD Hematocrit (Bld) [Volume fraction] 29.0 % Low 36.3-47.1 [facility] Comment on above: Performed By: #### B MP, MG, CDP, SUJATA #### [facility] [address] [place] [address] Founder Ceo & President: Buddy Drake MD Hemoglobin (Bld) [Mass/Vol] 8.3 g/dL Low 11.9-15.1 [facility] Comment on above: Performed By: #### B MP, MG, CDP, SUJATA #### [facility] [employer] [address] [place] [address] Founder Ceo & President: Buddy Drake MD Immature granulocytes/100 WBC (Bld) 1 % High 0 [facility] Comment on above: Performed By: #### B MP, MG, CDP, SUJATA #### [facility] [employer] [address] [place] [phone] Founder Ceo & President: Buddy Drake MD Lymphocytes (Bld) [#/Vol] 1.22 10*3/uL Normal 1.10-3.70 [facility] Comment on above: Performed By: #### B MP, MG, CDP, SUJATA #### [facility] [employer] [address] [place] [address] Founder Ceo & President: Buddy Drake MD Lymphocytes/100 WBC (Bld) 18 % Low 24-43 [facility] Comment on above: Performed By: #### B MP, MG, CDP, SUJATA #### [facility] [address] [place] [address] Founder Ceo & President: Buddy Drake MD MCH (RBC) [Entitic mass] 22.6 pg Low 25.2-33.5 [facility] Comment on above: Performed By: #### B MP, MG, CDP, SUJATA #### [facility] [address] [place] [phone] Founder Ceo & President: Buddy Drake MD MCHC (RBC) [Mass/Vol] 28.6 g/dL Normal 28.4-34.8 [facility] Comment on above: Performed By: #### B MP, MG, CDP, SUJATA #### [address] [address] Founder Ceo & President: Buddy Drake MD MCV (RBC) [Entitic vol] 79.0 fL Low 82.6-102.9 [facility] Comment on above: Performed By: #### B MP, MG, CDP, SUJATA #### [address] [address] Founder Ceo & President: Buddy Drake MD Monocytes (Bld) [#/Vol] 0.64 10*3/uL Normal 0.10-1.20 [facility] Comment on above: Performed By: #### B MP, MG, CDP, SUJATA #### [address] [address] Founder Ceo & President: Buddy Drake MD Monocytes/100 WBC (Bld) 10 % Normal 3-12 [facility] Comment on above: Performed By: #### B MP, MG, CDP, SUJATA #### [address] [address] Founder Ceo & President: Buddy Drake MD Neutrophil (Seg) 66 % High 36-65 [facility] Comment on above: Performed By: #### B MP, MG, CDP, SUJATA #### [address] [address] Founder Ceo & President: Buddy Drake MD NRBC Automated 0.0 per 100 WBC Normal 0.0 [facility] Comment on above: Performed By: #### B MP, MG, CDP, SUJATA #### [address] [address] Founder Ceo & President: Buddy Drake MD Platelet mean volume (Bld) [Entitic vol] 10.0 fL Normal 8.1-13.5 [facility] Comment on above: Performed By: #### B MP, MG, CDP, SUJATA #### [address] [address] Founder Ceo & President: Buddy Drake MD Platelets (Bld) [#/Vol] 255 10*3/uL Normal 138-453 [facility] Comment on above: Performed By: #### B MP, MG, CDP, SUJATA #### [address] [address] Founder Ceo & President: Buddy Drake MD RBC (Bld) [#/Vol] 3.67 10*6/uL Low 3.95-5.11 [facility] Comment on above: Performed By: #### B MP, MG, CDP, SUJATA #### [address] [address] Founder Ceo & President: Buddy Drake MD RBC morphology finding Nom (Bld) ANISOCYTOSIS PRESENT Normal [facility] Comment on above: Result Comment: MICR OCYTOSIS PRESENT Performed By: #### B MP, MG, CDP, SUJATA #### [address] [address] Founder Ceo & President: Buddy Drake MD WBC (Bld) [#/Vol] 6.7 10*3/uL Normal 3.5-11.3 [facility] Comment on above: Performed By: #### B MP, MG, CDP, SUJATA #### [address] [address] Founder Ceo & President: Buddy Drake MD CT HEAD WO CONTRASTon 2024 CT HEAD WO CONTRAST EXAMINATION: CT OF THE HEAD WITHOUT CONTRAST 06/06/2025 3:07 pm TECHNIQUE: CT of the head was performed without the administration of intravenous contrast. Automated exposure control, iterative reconstruction, and/or weight based adjustment of the mA/kV was utilized to reduce the radiation dose to as low as reasonably achievable. 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 IMPRESSION: 1. Redemonstration of an area of hypoattenuation in the posterior left temporal occipital lobe consistent with an acute area of infarct. No hemorrhage is identified. 2. 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 Remote left cerebellar infarct. Interpreted by: Marian Espino MD Signed by: Marian Espino MD 06/07/25 Final result Normal [facility] Magnesiumon 06-07-2025 Magnesium [Mass/Vol] 1.9 mg/dL 1.6 - 2 .4 mg/dL [facility] Magnesium [Mass/Vol] 1.9 mg/dL Normal 1.6-2.4 [facility] Comment on above: Performed By: #### B MP, MG, CDP, SUJATA #### [facility] [place] [address] Founder Ceo & President: Buddy Drake MD No Panel Informationon 06-07 [facility] Phosphoruson 06-07-2025 Phosphate [Mass/Vol] 4.2 mg/dL 2.5 - 4 .5 mg/dL [facility] Phosphorus, Inorg.on 025 Phosphorus, Inorg. 4.2 mg/dL Normal 2.5-4.5 [facility] Comment on above: Performed By: #### B MP, MG, CDP, SUJATA #### [facility] [employer] [address] [phone] Founder Ceo & President: Buddy Drake MD Anti-XA, Heparinon Anti-XA Unfrac Heparin 0.52 IU/L [facility] Comment on above: This test has not been validated or calibrated for therapies other than unfractionated heparin. Interpretation of the result in relation to other therapies must be done with caution and within clinical context. [facility] Anti-XA Unfrac Heparin 0.54 IU/L [facility] Comment on above: This test has not been validated or calibrated for therapies other than unfractionated heparin. Interpretation of the result in relation to other therapies must be done with caution and within clinical context. [facility] Basic Metabolic Panelon 05-23 Anion gap [Moles/Vol] 11 mmol/L 9 - 16 mmol/L [facility] Calcium [Mass/Vol] 9.2 mg/dL 8.6 - 10. 4 mg/dL [facility] Chloride [Moles/Vol] 105 mmol/L 98 - 10 7 mmol/L [facility] CO2 [Moles/Vol] 22 mmol/L 20 - 31 mmol/L [facility] Creatinine [Mass/Vol] 0.8 mg/dL 0.6 - 0.9 mg/dL [facility] Est, Glom Filt Rate 74 - PINF [facility] Comment on above: These results are not intended for use [...] following therapy that affects renal tubular secretion. Glucose [Mass/Vol] 107 mg/dL High 74 - 99 mg/dL [facility] Interpretation and review of laboratory results Abnormal [facility] Potassium [Moles/Vol] 4.1 mmol/L 3.7 - 5.3 mmol/L [facility] Sodium [Moles/Vol] 138 mmol/L 136 - 145 mmol/L [facility] Urea nitrogen [Mass/Vol] 19 mg/dL 8 - 23 mg/dL [facility] Basic Metabolic Profon 06-06 Anion gap [Moles/Vol] 11 mmol/L Normal 9-16 [facility] Comment on above: Performed By: #### P TT #### [address] [address] Founder Ceo & President: Buddy Drake MD Calcium [Mass/Vol] 9.2 mg/dL Normal 8.6-10.4 [facility] Comment on above: Performed By: #### P TT #### [address] [address] Founder Ceo & President: Buddy Drake MD Chloride [Moles/Vol] 105 mmol/L Normal 98-107 [facility] Comment on above: Performed By: #### P TT #### [address] [address] Founder Ceo & President: Buddy Drake MD CO2 [Moles/Vol] 22 mmol/L Normal 20-31 [facility] Comment on above: Performed By: #### P TT #### [address] [address] Founder Ceo & President: Buddy Drake MD Creatinine [Mass/Vol] 0.8 mg/dL Normal 0.6-0.9 [facility] Comment on above: Performed By: #### P TT #### [address] [address] Founder Ceo & President: Buddy Drake MD GFR/1.73 sq M.predicted among non-blacks MDRD (S/P/Bld) [Vol rate/Area] 74 mL/min/{1.73_m2} Normal >60 [facility] Comment on above: Result Comment: These results are not intended for [...] following therapy that affects renal tubular secretion. Performed By: #### P TT #### [facility] [address] [place] [address] Founder Ceo & President: Buddy Drake MD Glucose [Mass/Vol] 107 mg/dL High 74-99 [facility] Comment on above: Performed By: #### P TT #### [facility] [address] [address] Founder Ceo & President: Buddy Drake MD Potassium [Moles/Vol] 4.1 mmol/L Normal 3.7-5.3 [facility] Comment on above: Performed By: #### P TT #### [facility] [employer] [address] [place] [address] Founder Ceo & President: Buddy Drake MD Sodium [Moles/Vol] 138 mmol/L Normal 136-145 [facility] Comment on above: Performed By: #### P TT #### [facility] [address] [address] Founder Ceo & President: Buddy Drake MD Urea nitrogen [Mass/Vol] 19 mg/dL Normal 8-23 [facility] Comment on above: Performed By: #### P TT #### [address] [address] Founder Ceo & President: Buddy Drake MD CBC with Auto Differentialon 06-06-2025 Basophils (Bld) [#/Vol] 0.07 10*3/uL [facility] Basophils/100 WBC (Bld) 1 % 0 - 2 % [facility] Eosinophils (Bld) [#/Vol] 0.21 10*3/uL [facility] Comment on above: CORRECTED ON 06/06 A T 0452: PREVIOUSLY REPORTED 0.24 Eosinophils/100 WBC (Bld) 3 % 1 - 4 % [facility] Erythrocyte distribution width (RBC) [Ratio] 15.9 % High 11.8 - 14.4 % [facility] Hematocrit (Bld) [Volume fraction] 33.6 % Low 36.3 - 47.1 % [facility] Hemoglobin (Bld) [Mass/Vol] 9.1 g/dL Low 11.9 - 15.1 g/dL [facility] Immature granulocytes (Bld) [#/Vol] 0.14 10*3/uL [facility] Comment on above: CORRECTED ON 06/06 A T 0452: PREVIOUSLY REPORTED 0.13 Immature granulocytes/100 WBC (Bld) 2 % High 0 [facility] Interpretation and review of laboratory results Abnormal [facility] Lymphocytes/100 WBC (Bld) 16 % Low 24 - 43 % [facility] Lymphocytes/100 WBC (Bld) 1.12 % [facility] MCH (RBC) [Entitic mass] 22.8 pg Low 25.2 - 33.5 pg [facility] MCHC (RBC) [Mass/Vol] 27.1 g/dL Low 28.4 - 34.8 g/dL [facility] MCV (RBC) [Entitic vol] 84.2 fL 82.6 - 102.9 fL [facility] Monocytes/100 WBC (Bld) 9 % 3 - 12 % [facility] Monocytes/100 WBC (Bld) 0.63 % [facility] Comment on above: CORRECTED ON 06/06 A T 0452: PREVIOUSLY REPORTED 0.62 Morphology Hans (Bld) [Interp] ANISOCYTOSIS PRESENT [facility] Neutrophils/100 WBC (Bld) 69 % High 36 - 65 % [facility] Nucleated RBC/100 WBC (Bld) [Ratio] 0.0 % 0.0 per 100 WBC [facility] Platelet mean volume (Bld) [Entitic vol] 10.1 fL 8.1 - 13.5 fL [facility] Platelets (Bld) [#/Vol] 264 10*3/uL [facility] RBC (Bld) [#/Vol] 3.99 10*6/uL 3.95 - 5.11 m/uL [facility] Segmented neutrophils/100 WBC (Bld) 4.83 % [facility] Comment on above: CORRECTED ON 06/06 A T 0452: PREVIOUSLY REPORTED 4.80 WBC other (Bld) [#/Vol] 7.0 [facility] CBC with Diffon 06-06-2025 Abs.Imm.Granulocyte 0.14 k/uL Normal 0.00-0.30 [facility] Comment on above: Result Comment: ZAKIYA ECTED ON 06/06 AT 0452: PREVIOUSLY REPORTED 0.13 Performed By: #### P TT #### [employer] [address] [place], [place] [id number] Founder Ceo & President: Buddy Drake MD Abs.Neutrophil (Seg) 4.83 k/uL Normal 1.50-8.10 [facility] Comment on above: Result Comment: ZAKIYA ECTED ON 06/06 AT 0452: PREVIOUSLY REPORTED 4.80 Performed By: #### P TT #### [employer] [address] [place] [address] Founder Ceo & President: Buddy Drake MD Eosinophils (Bld) [#/Vol] 0.21 10*3/uL Normal 0.00-0.44 [facility] Comment on above: Result Comment: ZAKIYA ECTED ON 06/06 AT 0452: PREVIOUSLY REPORTED 0.24 Performed By: #### P TT #### [employer] [address] [place], [place] [id number] Founder Ceo & President: Buddy Drake MD Monocytes (Bld) [#/Vol] 0.63 10*3/uL Normal 0.10-1.20 [facility] Comment on above: Result Comment: ZAKIYA ECTED ON 06/06 AT 0452: PREVIOUSLY REPORTED 0.62 Performed By: #### P TT #### [address] [address] Founder Ceo & President: Buddy Drake MD Morphology Hans (Bld) [Interp] ANISOCYTOSIS PRESENT Normal [facility] Comment on above: Performed By: #### P TT #### [address] [address] [employer] President: Buddy Drake MD Abs. Basophil 0.07 k/uL Normal 0.00-0.20 [facility] Comment on above: Performed By: #### P TT #### [address] [address] [employer] President: Buddy Drake MD Basophils/100 WBC (Bld) 1 % Normal 0-2 [facility] Comment on above: Performed By: #### P TT #### [address] [address] [employer] President: Buddy Drake MD Eosinophils/100 WBC (Bld) 3 % Normal 1-4 [facility] Comment on above: Performed By: #### P TT #### [address] [address] [employer] President: Buddy Drake MD Erythrocyte distribution width (RBC) [Ratio] 15.9 % High 11.8-14.4 [facility] Comment on above: Performed By: #### P TT #### [address] [address] [employer] President: Buddy Drake MD Hematocrit (Bld) [Volume fraction] 33.6 % Low 36.3-47.1 [facility] Comment on above: Performed By: #### P TT #### [address] [address] [employer]ounder [employer] President: Buddy Drake MD Hemoglobin (Bld) [Mass/Vol] 9.1 g/dL Low 11.9-15.1 [facility] Comment on above: Performed By: #### P TT #### [address] [address] [employer] President: Buddy Drake MD Immature granulocytes/100 WBC (Bld) 2 % High 0 [facility] Comment on above: Performed By: #### P TT #### [address] [address] [employer] President: Buddy Drake MD Lymphocytes (Bld) [#/Vol] 1.12 10*3/uL Normal 1.10-3.70 [facility] Comment on above: Performed By: #### P TT #### [address] [address] [employer] President: Buddy Drake MD Lymphocytes/100 WBC (Bld) 16 % Low 24-43 [facility] Comment on above: Performed By: #### P TT #### [address] [address] [employer] President: Buddy Drake MD MCH (RBC) [Entitic mass] 22.8 pg Low 25.2-33.5 [facility] Comment on above: Performed By: #### P TT #### [address] [address] [employer] President: Buddy Drake MD MCHC (RBC) [Mass/Vol] 27.1 g/dL Low 28.4-34.8 [facility] Comment on above: Performed By: #### P TT #### [address] [address] [employer] President: Buddy Drake MD MCV (RBC) [Entitic vol] 84.2 fL Normal 82.6-102.9 [facility] Comment on above: Performed By: #### P TT #### [place] [address] [employer] President: Buddy Drake MD Monocytes/100 WBC (Bld) 9 % Normal 3-12 [facility] Comment on above: Performed By: #### P TT #### [address] [address] [employer] President: Buddy Drake MD Neutrophil (Seg) 69 % High 36-65 [facility] Comment on above: Performed By: #### P TT #### [address] [address] [employer] President: Buddy Drake MD NRBC Automated 0.0 per 100 WBC Normal 0.0 [facility] Comment on above: Performed By: #### P TT #### [address] [address] [employer] President: Buddy Drake MD Platelet mean volume (Bld) [Entitic vol] 10.1 fL Normal 8.1-13.5 [facility] Comment on above: Performed By: #### P TT #### [address] [address] [employer] President: Buddy Drake MD Platelets (Bld) [#/Vol] 264 10*3/uL Normal 138-453 [facility] Comment on above: Performed By: #### P TT #### [address] [address] [employer] President: Buddy Drake MD RBC (Bld) [#/Vol] 3.99 10*6/uL Normal 3.95-5.11 [facility] Comment on above: Performed By: #### P TT #### [address] [address] [employer] President: Buddy Drake MD WBC (Bld) [#/Vol] 7.0 10*3/uL Normal 3.5-11.3 [facility] Comment on above: Performed By: #### P TT #### [facility] [address] [place] [phone] Founder Ceo & President: Buddy Drake MD Heparin Anti-Xaon 06-06-2025 Heparin Anti-Xa 0.52 IU/L Normal [facility] Comment on above: Result Comment: This test has not been validated or calibrated for therapies other than unfractionated heparin. Interpretation of the result in relation to other therapies must be done with caution and within clinical context. Performed By: #### B MP, MG, CDP, SUJATA #### [facility] [address] [place] [phone] [employer] President: Buddy Drake MD Heparin Anti-Xa 0.54 IU/L Normal [facility] Comment on above: Result Comment: This test has not been validated or calibrated for therapies other than unfractionated heparin. Interpretation of the result in relation to other therapies must be done with caution and within clinical context. Performed By: #### P TT #### [facility] [address] [place] [phone] [employer] President: Buddy Drake MD Magnesiumon 06-06-2025 Magnesium [Mass/Vol] 1.9 mg/dL 1.6 - 2 .4 mg/dL [facility] Magnesium [Mass/Vol] 1.9 mg/dL Normal 1.6-2.4 [facility] Comment on above: Performed By: #### P TT #### [facility] [address] [place] [phone] [employer] Ceo & President: Buddy Drake MD No Panel Informationon 06-06 [facility] [employer] Phosphoruson 06-06-2025 Phosphate [Mass/Vol] 4.4 mg/dL 2.5 - 4 .5 mg/dL [facility] Phosphorus, Inorg.on 025 Phosphorus, Inorg. 4.4 mg/dL Normal 2.5-4.5 [facility] Comment on above: Performed By: #### P TT #### [employer] [address] [place], [place] [id number] Founder Ceo & President: Buddy Drake MD APTTon 06-05-2025 aPTT Coag (Bld) [Time] 32.9 s [facility] [employer] Comment on above: IV Heparin Therapy Range: 66.0-92.0 sec aPTT Coag (Bld) [Time] 32.9 s Normal 23.0-36.5 [facility] Comment on above: Result Comment: IV Heparin Therapy Range: 66.0-92.0 sec Performed By: #### B MP, MG, CDP, SUJATA #### [employer] [address] [place] [address] Founder Ceo & President: Buddy Drake MD Anti-XA, Heparinon Anti-XA Unfrac Heparin 0.20 IU/L [facility] Comment on above: This test has not been validated or calibrated for therapies other than unfractionated heparin. Interpretation of the result in relation to other therapies must be done with caution and within clinical context. [facility] Anti-XA Unfrac Heparin <0.10 IU/L [facility] Comment on above: This test has not been validated or calibrated for therapies other than unfractionated heparin. Interpretation of the result in relation to other therapies must be done with caution and within clinical context. CBCon 06-05-2025 Erythrocyte distribution width (RBC) [Ratio] 15.7 % High 11.8 - 14.4 % [facility] Hematocrit (Bld) [Volume fraction] 32.0 % Low 36.3 - 47.1 % [facility] Hemoglobin (Bld) [Mass/Vol] 9.2 g/dL Low 11.9 - 15.1 g/dL [facility] Interpretation and review of laboratory results Abnormal [facility] MCH (RBC) [Entitic mass] 22.9 pg Low 25.2 - 33.5 pg [facility] MCHC (RBC) [Mass/Vol] 28.8 g/dL 28.4 - 34.8 g/dL [facility] MCV (RBC) [Entitic vol] 79.8 fL Low 82.6 - 102.9 fL [facility] Nucleated RBC/100 WBC (Bld) [Ratio] 0.0 % 0.0 per 100 WBC [facility] Platelet mean volume (Bld) [Entitic vol] 10.2 fL 8.1 - 13.5 fL [facility] Platelets (Bld) [#/Vol] 296 10*3/uL [facility] RBC (Bld) [#/Vol] 4.01 10*6/uL 3.95 - 5.11 m/uL [facility] WBC other (Bld) [#/Vol] 9.2 [facility] Erythrocyte distribution width (RBC) [Ratio] 15.7 % High 11.8-14.4 [facility] Comment on above: Performed By: #### B MP, MG, CDP, SUJATA #### [facility] [address] [place] [phone] Founder Ceo & President: Buddy Drake MD Hematocrit (Bld) [Volume fraction] 32.0 % Low 36.3-47.1 [facility] Comment on above: Performed By: #### B MP, MG, CDP, SUJATA #### [employer] [address] [place] [phone] Founder Ceo & President: Buddy Drake MD Hemoglobin (Bld) [Mass/Vol] 9.2 g/dL Low 11.9-15.1 [facility] Comment on above: Performed By: #### B MP, MG, CDP, SUJATA #### [employer] [address] [place] [phone] Founder Ceo & President: Buddy Drake MD MCH (RBC) [Entitic mass] 22.9 pg Low 25.2-33.5 [facility] Comment on above: Performed By: #### B MP, MG, CDP, SUJATA #### [employer] [address] [place] [address] [phone] Founder Ceo & President: Buddy Drake MD MCHC (RBC) [Mass/Vol] 28.8 g/dL Normal 28.4-34.8 [facility] Comment on above: Performed By: #### B MP, MG, CDP, SUJATA #### [address] [address] Founder Ceo & President: Buddy Drake MD MCV (RBC) [Entitic vol] 79.8 fL Low 82.6-102.9 [facility] Comment on above: Performed By: #### B MP, MG, CDP, SUJATA #### [address] [address] Founder Ceo & President: Buddy Drake MD NRBC Automated 0.0 per 100 WBC Normal 0.0 [facility] Comment on above: Performed By: #### B MP, MG, CDP, SUJATA #### [address] [address] Founder Ceo & President: Buddy Drake MD Platelet mean volume (Bld) [Entitic vol] 10.2 fL Normal 8.1-13.5 [facility] Comment on above: Performed By: #### B MP, MG, CDP, SUJATA #### [address] [address] Founder Ceo & President: Buddy Drake MD Platelets (Bld) [#/Vol] 296 10*3/uL Normal 138-453 [facility] Comment on above: Performed By: #### B MP, MG, CDP, SUJATA #### [facility] [address] [place] [phone] Founder Ceo & President: Buddy Drake MD RBC (Bld) [#/Vol] 4.01 10*6/uL Normal 3.95-5.11 [facility] Comment on above: Performed By: #### B MP, MG, CDP, SUJATA #### [address] [address] Founder Ceo & President: Buddy Drake MD WBC (Bld) [#/Vol] 9.2 10*3/uL Normal 3.5-11.3 [facility] Comment on above: Performed By: #### B MP, MG, CDP, SUJATA #### [facility] [address] [place] [address] Founder Ceo & President: Buddy Drake MD CT HEAD WO CONTRASTon 2024 CT HEAD WO CONTRAST EXAMINATION: CT OF THE HEAD WITHOUT CONTRAST 06/05/2025 8:19 am TECHNIQUE: CT of the head was performed without the administration of intravenous contrast. Automated exposure control, iterative reconstruction, and/or weight based adjustment of the mA/kV was utilized to reduce the radiation dose to as low as reasonably achievable. COMPARISON: 06/01/2025. HISTORY: ORDERING SYSTEM PROVIDED HISTORY: Stability scan TECHNOLOGIST PROVIDED HISTORY: Stability scan Reason for Exam: stability scan FINDINGS: BRAIN/VENTRICLES: Loss of linder-white differentiation in the left occipital lobe is again noted. There are now faint curvilinear areas of increased attenuation in this area. Left sella barrel are and thalamic infarcts are not significantly changed. Small old bilateral frontal lobe infarcts are stable. There is no mass effect or acute intracranial hemorrhage. Ventricles and cisterns are normally patent. ORBITS: The visualized portion of the orbits demonstrate no acute abnormality. SINUSES: The visualized paranasal sinuses and mastoid air cells demonstrate no acute abnormality. SOFT TISSUES/SKULL: No acute abnormality of the visualized skull or soft tissues. IMPRESSION: Involving left occipital lobe infarct with new faint curvilinear areas of increased attenuation suggesting cortical laminar necrosis. Petechial hemorrhage is considered less likely. Left thalamic and cerebellar infarcts are not significantly changed. Interpreted by: Manuel Felton MD Signed by: Manuel Felton MD 06/05/25 Final result Normal [facility] CT Head WO contraston 2024 Involving left occip ital lobe infarct with new faint curvilinear areas of increased attenuation suggesting cortical laminar necrosis. Petechial hemorrhage is considered less likely. Left thalamic and cerebellar infarcts are not significantly changed. [facility] RIS CONSOLIDATED EXAMINATION: CT OF THE HEAD WITHOUT CONTRAST 06/05/2025 8:19 am TECHNIQUE: CT of the head was performed without the administration of intravenous contrast. Automated exposure control, iterative reconstruction, and/or weight based adjustment of the mA/kV was utilized to reduce the radiation dose to as low as reasonably achievable. COMPARISON: 06/01/2025. HISTORY: ORDERING SYSTEM PROVIDED HISTORY: Stability scan TECHNOLOGIST PROVIDED HISTORY: Stability scan Reason for Exam: stability scan FINDINGS: BRAIN/VENTRICLES: Loss of linder-white differentiation in the left occipital lobe is again noted. There are now faint curvilinear areas of increased attenuation in this area. Left sella barrel are and thalamic infarcts are not significantly changed. Small old bilateral frontal lobe infarcts are stable. There is no mass effect or acute intracranial hemorrhage. Ventricles and cisterns are normally patent. ORBITS: The visualized portion of the orbits demonstrate no acute abnormality. SINUSES: The visualized paranasal sinuses and mastoid air cells demonstrate no acute abnormality. SOFT TISSUES/SKULL: No acute abnormality of the visualized skull or soft tissues. [facility] Manuel De MD - 06/05/2025 EXAMINATION: CT OF THE HEAD WITHOUT CONTRAST 06/05/2025 8:19 am TECHNIQUE: CT of the head was performed without the administration of intravenous contrast. Automated exposure control, iterative reconstruction, and/or weight based adjustment of the mA/kV was utilized to reduce the radiation dose to as low as reasonably achievable. COMPARISON: 06/01/2025. HISTORY: ORDERING SYSTEM PROVIDED HISTORY: Stability scan TECHNOLOGIST PROVIDED HISTORY: Stability scan Reason for Exam: stability scan FINDINGS: BRAIN/VENTRICLES: Loss of linder-white differentiation in the left occipital lobe is again noted. There are now faint curvilinear areas of increased attenuation in this area. Left sella barrel are and thalamic infarcts are not significantly changed. Small old bilateral frontal lobe infarcts are stable. There is no mass effect or acute intracranial hemorrhage. Ventricles and cisterns are normally patent. ORBITS: The visualized portion of the orbits demonstrate no acute abnormality. SINUSES: The visualized paranasal sinuses and mastoid air cells demonstrate no acute abnormality. SOFT TISSUES/SKULL: No acute abnormality of the visualized skull or soft tissues. IMPRESSION: Involving left occipital lobe infarct with new faint curvilinear areas of increased attenuation suggesting cortical laminar necrosis. Petechial hemorrhage is considered less likely. Left thalamic and cerebellar infarcts are not significantly changed. [facility] Radiology Study observation (narrative) [facility] CT Head WO contrastOrdered B y: Manuel Felton on 06-05-2025 [facility] Work Phone: Heparin Anti-Xaon 06-05-2025 Heparin Anti-Xa 0.20 IU/L Normal [facility] Comment on above: Result Comment: This test has not been validated or calibrated for therapies other than unfractionated heparin. Interpretation of the result in relation to other therapies must be done with caution and within clinical context. Performed By: #### B MP, MG, CDP, SUJATA #### [employer] [address] [place] [address] [phone] Founder Ceo & President: Buddy Drake MD Heparin Anti-Xa <0.10 Normal [facility] Comment on above: Result Comment: This test has not been validated or calibrated for therapies other than unfractionated heparin. Interpretation of the result in relation to other therapies must be done with caution and within clinical context. Performed By: #### B MP, MG, CDP, SUJATA #### [employer] [address] [place] [phone] Founder Ceo & President: Buddy Drake MD No Panel Informationon 06-05 [facility] PTon 06-05-2025 INR Coag (PPP) [Relative time] 1.0 {INR} Normal [facility] Comment on above: Result Comment: Therapeutic Range: Moderate Anticoagulant Intensity: INR = 2.0-3.0 High Anticoagulant Intensity: INR = 2.5-3.5 Performed By: #### B MP, MG, CDP, SUJATA #### [employer] [address] [place] [phone] Founder Ceo & President: Buddy Drake MD PT Coag (PPP) [Time] 13.6 s Normal 11.7-14.9 [facility] Comment on above: Performed By: #### B MP, MG, CDP, SUJATA #### [employer] [address] [place] [phone] Founder Ceo & President: Buddy Drake MD Protime-INRon 09-14-2025 INR Coag (PPP) [Relative time] 1.0 {INR} [facility] Comment on above: Therapeutic Range: Moderate Anticoagulant Intensity: INR = 2.0-3.0 High Anticoagulant Intensity: INR = 2.5-3.5 PT Coag (PPP) [Time] 13.6 s [facility] CBCon 06-04-2025 Erythrocyte distribution width (RBC) [Ratio] 15.8 % High 11.8 - 14.4 % [facility] Hematocrit (Bld) [Volume fraction] 29.1 % Low 36.3 - 47.1 % [facility] Hemoglobin (Bld) [Mass/Vol] 8.3 g/dL Low 11.9 - 15.1 g/dL [facility] Interpretation and review of laboratory results Abnormal [facility] MCH (RBC) [Entitic mass] 22.7 pg Low 25.2 - 33.5 pg [facility] MCHC (RBC) [Mass/Vol] 28.5 g/dL 28.4 - 34.8 g/dL [facility] MCV (RBC) [Entitic vol] 79.7 fL Low 82.6 - 102.9 fL [facility] Nucleated RBC/100 WBC (Bld) [Ratio] 0.0 % 0.0 per 100 WBC [facility] Platelet mean volume (Bld) [Entitic vol] 10.1 fL 8.1 - 13.5 fL [facility] Platelets (Bld) [#/Vol] 266 10*3/uL [facility] RBC (Bld) [#/Vol] 3.65 10*6/uL Low 3.95 - 5.11 m/uL [facility] WBC other (Bld) [#/Vol] 7.9 [facility] Erythrocyte distribution width (RBC) [Ratio] 15.8 % High 11.8-14.4 [facility] Comment on above: Performed By: #### B MP, MG, CDP, SUJATA #### [facility] [place] [address] Founder Ceo & President: Buddy Drake MD Hematocrit (Bld) [Volume fraction] 29.1 % Low 36.3-47.1 [facility] Comment on above: Performed By: #### B MP, MG, CDP, SUJATA #### [address] [address] Founder Ceo & President: Buddy Drake MD Hemoglobin (Bld) [Mass/Vol] 8.3 g/dL Low 11.9-15.1 [facility] Comment on above: Performed By: #### B MP, MG, CDP, SUJATA #### [address] [address] Founder Ceo & President: Buddy Drake MD MCH (RBC) [Entitic mass] 22.7 pg Low 25.2-33.5 [facility] Comment on above: Performed By: #### B MP, MG, CDP, SUJATA #### [address] [address] Founder Ceo & President: Buddy Draek MD MCHC (RBC) [Mass/Vol] 28.5 g/dL Normal 28.4-34.8 [facility] Comment on above: Performed By: #### B MP, MG, CDP, SUJATA #### [address] [address] Founder Ceo & President: Buddy Drake MD MCV (RBC) [Entitic vol] 79.7 fL Low 82.6-102.9 [facility] Comment on above: Performed By: #### B MP, MG, CDP, SUJATA #### [facility] [address] [place] [phone] Founder Ceo & President: Buddy Drake MD NRBC Automated 0.0 per 100 WBC Normal 0.0 [facility] Comment on above: Performed By: #### B MP, MG, CDP, SUJATA #### [facility] [address] [place] [phone] Founder Ceo & President: Buddy Drake MD Platelet mean volume (Bld) [Entitic vol] 10.1 fL Normal 8.1-13.5 [facility] Comment on above: Performed By: #### B MP, MG, CDP, SUJATA #### [facility] [address] [place] [address] Founder Ceo & President: Buddy Drake MD Platelets (Bld) [#/Vol] 266 10*3/uL Normal 138-453 [facility] Comment on above: Performed By: #### B MP, MG, CDP, SUJATA #### [facility] [address] [place] [phone] Founder Ceo & President: Buddy Drake MD RBC (Bld) [#/Vol] 3.65 10*6/uL Low 3.95-5.11 [facility] Comment on above: Performed By: #### B MP, MG, CDP, SUJATA #### [facility] [employer] [address] [place] [address] Founder Ceo & President: Buddy Drake MD WBC (Bld) [#/Vol] 7.9 10*3/uL Normal 3.5-11.3 [facility] Comment on above: Performed By: #### B MP, MG, CDP, SUJATA #### [facility] [address] [place] [phone] Founder Ceo & President: Buddy Drake MD APTVish 06-03-2025 aPTT Coag (Bld) [Time] 27.7 s [facility] Comment on above: IV Heparin Therapy Range: 66.0-92.0 sec [facility] aPTT Coag (Bld) [Time] 27.7 s Normal 23.0-36.5 [facility] Comment on above: Result Comment: IV Heparin Therapy Range: 66.0-92.0 sec Performed By: #### B MP, MG, CDP, SUJATA #### [facility] [employer] [address] [place] [phone] Founder Ceo & President: Buddy Drake MD APTTon 06-02-2025 aPTT Coag (Bld) [Time] 28.0 s Andrea n [employer] Comment on above: IV Heparin Therapy Range: 66.0-92.0 sec [facility] a[employer] Coag (Bld) [Time] 28.0 s Normal 23.0-36.5 [facility] Comment on above: Result Comment: IV Heparin Therapy Range: 66.0-92.0 sec Performed By: #### P TT #### [employer] [address] [place] [address] Founder Ceo & President: Buddy Drake MD aPTT Coag (Bld) [Time] 27.7 s Andrea n [facility] Comment on above: IV Heparin Therapy Range: 66.0-92.0 sec [facility] a[employer] Coag (Bld) [Time] 27.7 s Normal 23.0-36.5 [facility] Comment on above: Result Comment: IV Heparin Therapy Range: 66.0-92.0 sec Performed By: #### B MP, MG, CDP, SUJATA #### [employer] [address] [place], [place] [phone] Founder Ceo & President: Buddy Drake MD aPTT Coag (Bld) [Time] 24.9 s [facility] n [facility] Comment on above: IV Heparin Therapy Range: 66.0-92.0 sec [facility] Coag (Bld) [Time] 24.9 s Normal 23.0-36.5 [facility] Comment on above: Result Comment: IV Heparin Therapy Range: 66.0-92.0 sec Performed By: #### B MP, MG, CDP, SUJATA #### [employer] [address] [place] [address] Founder Ceo & President: Buddy Drake MD Basic Metab w/rfx MGon 06-02 Anion gap [Moles/Vol] 11 mmol/L Normal 9-16 [facility] Comment on above: Performed By: #### B MP, MG, CDP, SUJATA #### [address] [address] Founder Ceo & President: Buddy Drake MD Calcium [Mass/Vol] 9.1 mg/dL Normal 8.6-10.4 [facility] Comment on above: Performed By: #### B MP, MG, CDP, SUJATA #### [facility] [address] [place] [address] Founder Ceo & President: Buddy Drake MD Chloride [Moles/Vol] 103 mmol/L Normal 98-107 [facility] Comment on above: Performed By: #### B MP, MG, CDP, SUJATA #### [facility] [employer] [address] [place] [phone] Founder Ceo & President: Buddy Drake MD CO2 [Moles/Vol] 23 mmol/L Normal 20-31 [facility] Comment on above: Performed By: #### B MP, MG, CDP, SUJATA #### [facility] [employer] [address] [place] [phone] Founder Ceo & President: Buddy Drake MD Creatinine [Mass/Vol] 0.9 mg/dL Normal 0.6-0.9 [facility] Comment on above: Performed By: #### B MP, MG, CDP, SUJATA #### [address] [address] Founder Ceo & President: Buddy Drake MD GFR/1.73 sq M.predicted among non-blacks MDRD (S/P/Bld) [Vol rate/Area] 65 mL/min/{1.73_m2} Normal >60 [facility] Comment on above: Result Comment: These results are not intended for [...] following therapy that affects renal tubular secretion. Performed By: #### B MP, MG, CDP, SUJATA #### [facility] [address] [place] [address] Founder Ceo & President: Buddy Drake MD Glucose [Mass/Vol] 119 mg/dL High 74-99 [facility] Comment on above: Performed By: #### B MP, MG, CDP, SUJATA #### [facility] [address] [place] [phone] Founder Ceo & President: Buddy Drake MD Potassium [Moles/Vol] 4.3 mmol/L Normal 3.7-5.3 [facility] Comment on above: Performed By: #### B MP, MG, CDP, SUJATA #### [facility] [address] [place] [address] Founder Ceo & President: Buddy Drake MD Sodium [Moles/Vol] 137 mmol/L Normal 136-145 [facility] Comment on above: Performed By: #### B MP, MG, CDP, SUJATA #### [facility] [address] [place] [phone] Founder Ceo & President: Buddy Drake MD Urea nitrogen [Mass/Vol] 16 mg/dL Normal 8-23 [facility] Comment on above: Performed By: #### B MP, MG, CDP, SUJATA #### [facility] [address] [place] [phone] Founder Ceo & President: Buddy Drake MD Basic Metabolic Panel w/ Ref juna to MGon 06-02-2025 Anion gap [Moles/Vol] 11 mmol/L 9 - 16 mmol/L [facility] Calcium [Mass/Vol] 9.1 mg/dL 8.6 - 10. 4 mg/dL [facility] Chloride [Moles/Vol] 103 mmol/L 98 - 10 7 mmol/L [facility] CO2 [Moles/Vol] 23 mmol/L 20 - 31 mmol/L [facility] Creatinine [Mass/Vol] 0.9 mg/dL 0.6 - 0.9 mg/dL [facility] Est, Glom Filt Rate 65 - PINF [facility] Comment on above: These results are not intended for use [...] following therapy that affects renal tubular secretion. Glucose [Mass/Vol] 119 mg/dL High 74 - 99 mg/dL [facility] Interpretation and review of laboratory results Abnormal [facility] Potassium [Moles/Vol] 4.3 mmol/L 3.7 - 5.3 mmol/L [facility] Sodium [Moles/Vol] 137 mmol/L 136 - 145 mmol/L [facility] Urea nitrogen [Mass/Vol] 16 mg/dL 8 - 23 mg/dL [facility] CBCon 06-02-2025 Erythrocyte distribution width (RBC) [Ratio] 15.8 % High 11.8 - 14.4 % [facility] Hematocrit (Bld) [Volume fraction] 27.5 % Low 36.3 - 47.1 % [facility] Hemoglobin (Bld) [Mass/Vol] 8.0 g/dL Low 11.9 - 15.1 g/dL [facility] Interpretation and review of laboratory results Abnormal [facility] MCH (RBC) [Entitic mass] 22.6 pg Low 25.2 - 33.5 pg [facility] MCHC (RBC) [Mass/Vol] 29.1 g/dL 28.4 - 34.8 g/dL [facility] MCV (RBC) [Entitic vol] 77.7 fL Low 82.6 - 102.9 fL [facility] Nucleated RBC/100 WBC (Bld) [Ratio] 0.0 % 0.0 per 100 WBC [facility] Platelet mean volume (Bld) [Entitic vol] 9.9 fL 8.1 - 13.5 fL [facility] Platelets (Bld) [#/Vol] 260 10*3/uL [facility] RBC (Bld) [#/Vol] 3.54 10*6/uL Low 3.95 - 5.11 m/uL [facility] WBC other (Bld) [#/Vol] 9.4 [facility] Erythrocyte distribution width (RBC) [Ratio] 15.8 % High 11.8-14.4 [facility] Comment on above: Performed By: #### B MP, MG, CDP, SUJATA #### [facility] [address] [place] [phone] Founder Ceo & President: Buddy Drake MD Hematocrit (Bld) [Volume fraction] 27.5 % Low 36.3-47.1 [facility] Comment on above: Performed By: #### B MP, MG, CDP, SUJATA #### [facility] [address] [place] [address] Founder Ceo & President: Buddy Drake MD Hemoglobin (Bld) [Mass/Vol] 8.0 g/dL Low 11.9-15.1 [facility] Comment on above: Performed By: #### B MP, MG, CDP, SUJATA #### [employer] [address] [place] [address] Founder Ceo & President: Buddy Drake MD MCH (RBC) [Entitic mass] 22.6 pg Low 25.2-33.5 [facility] Comment on above: Performed By: #### B MP, MG, CDP, SUJATA #### [employer] [address] [place] [phone] Founder Ceo & President: Buddy Drake MD MCHC (RBC) [Mass/Vol] 29.1 g/dL Normal 28.4-34.8 [facility] Comment on above: Performed By: #### B MP, MG, CDP, SUJATA #### [employer] [address] [place] [phone] Founder Ceo & President: Buddy Drake MD MCV (RBC) [Entitic vol] 77.7 fL Low 82.6-102.9 [facility] Comment on above: Performed By: #### B MP, MG, CDP, SUJATA #### [address] [address] Founder Ceo & President: Buddy Drake MD NRBC Automated 0.0 per 100 WBC Normal 0.0 [facility] Comment on above: Performed By: #### B MP, MG, CDP, SUJATA #### [address] [address] Founder Ceo & President: Buddy Drake MD Platelet mean volume (Bld) [Entitic vol] 9.9 fL Normal 8.1-13.5 [facility] Comment on above: Performed By: #### B MP, MG, CDP, SUJATA #### [address] [address] Founder Ceo & President: Buddy Drake MD Platelets (Bld) [#/Vol] 260 10*3/uL Normal 138-453 [facility] Comment on above: Performed By: #### B MP, MG, CDP, SUJATA #### [address] [address] Founder Ceo & President: Buddy Drake MD RBC (Bld) [#/Vol] 3.54 10*6/uL Low 3.95-5.11 [facility] Comment on above: Performed By: #### B MP, MG, CDP, SUJATA #### [address] [address] Founder Ceo & President: Buddy Drake MD WBC (Bld) [#/Vol] 9.4 10*3/uL Normal 3.5-11.3 [facility] Comment on above: Performed By: #### B MP, MG, CDP, SUJATA #### [address] [address] Founder Ceo & President: Buddy Drake MD Cardiac echo study Procedure Ordered By: Randal Oliver on 06-02-2025 Aortic Root 2.9 cm [facility] Work Phone: Ascending Aorta 3.8 cm [facility] Work Phone: AV Area by Peak Velocity 1.6 cm2 [facility] Work Phone: AV Area by VTI 1.6 cm2 [place] [facility] Work Phone: AV Mean Gradient 5 mmHg [facility] [employer] Work Phone: AV Mean Velocity 1.0 m/s [facility] Work Phone: AV Peak Gradient 10 mmHg [facility] [employer] [facility] Work Phone: AV Peak Velocity 1.6 m/s [facility] [employer] Work Phone: AV Velocity Ratio 0.75 [facility] Work Phone: AV VTI 25.5 cm [facility] Work Phone: E/E' Lateral 10.73 [facility] Work Phone: E/E' Ratio (Averaged) 13.15 [facility] Work Phone: E/E' Septal 15.57 [facility] [employer] Work Phone: EF 3D 57 % [facility] [employer] Work Phone: EF Physician 57 % [facility] [employer] Work Phone: Est. RA Pressure 3 mmHg [facility] [employer] Work Phone: Fractional Shortening 2D 38 % 28 - 44 % [facility] Work Phone: Global longitudinal strain -14.2 % [facility] Work Phone: Global longitudinal strain -11.6 % [facility] Work Phone: Global longitudinal strain -15.9 % [employer] Work Phone: Global longitudinal strain -13.9 % [employer] Work Phone: Interpretation and review of laboratory results Abnormal [facility] [employer] Work Phone: IVC Proxmal 0.9 cm [employer] Work Phone: IVSd 0.9 cm 0.6 - 0.9 cm [employer] Work Phone: LA Area 2C 13.9 cm2 [employer] Work Phone: LA Area 4C 10.3 cm2 [employer] Phone: LA Diameter 2.9 cm [employer] Work Phone: LA Major Weston 5.2 cm [employer] Work Phone: LA Minor Weston 4.8 cm [employer] Work Phone: LA Volume BP 24 mL 22 - 52 mL [employer] Work Phone: LA Volume MOD A2C 32 mL 22 - 52 mL [employer] Work Phone: LA Volume MOD A4C 16 mL Abnormal 22 - 52 mL [employer] van[facility] [employer] Work Phone: LA/AO Root Ratio 1.00 [facility] [employer] Work Phone: LV E' Lateral Velocity 8.39 cm/s Andrea [facility] [employer] Work Phone: LV E' Septal Velocity 5.78 cm/s [employer] Work Phone: LV EDV 3D 98 mL [employer] Work Phone: LV EDV A4C 50 mL [employer] Work Phone: LV Ejection Fraction A4C 71 % [facility] Phone: LV ESV 3D 42 mL [employer] Work Phone: LV ESV A4C 14 mL [facility] Phone: LV Mass 2D 104.6 g 67 - 162 g [employer] Phone: LV Mass 3D 125.0 g [employer] Work Phone: [phone] LV RWT Ratio 0.54 [employer] Phone: LVIDd 3.7 cm Abnormal 3.9 - 5.3 cm [employer] Phone: LVIDs 2.3 cm [employer] Phone: LVOT Area 2.0 cm2 [facility] Phone: LVOT Diameter 1.6 cm [employer] Phone: LVOT Mean Gradient 3 mmHg [facility] [employer] Work Phone: LVOT Peak Gradient 6 mmHg [facility] [employer] Work Phone: LVOT Peak Velocity 1.2 m/s [facility] [employer] Phone: LVOT SV 40.2 ml [facility] Phone: LVOT VTI 20.0 cm [facility] Phone: LVOT:AV VTI Index 0.78 [employer] Phone: LVPWd 1.0 cm Abnormal 0.6 - 0.9 cm [employer] Phone: MV A Velocity 1.25 m/s [employer] Phone: MV E Velocity 0.90 m/s [employer] Phone: MV E Wave Deceleration Time 172.0 ms [facility] Phone: [phone] MV E/A 0.72 [facility] [employer] Work Phone: Pulm Vein A Velocity 0.4 m/s [facility] Phone: [phone] PV Max Velocity 1.4 m/s [facility] [employer] Work Phone: PV Peak Gradient 8 mmHg [facility] [employer] Work Phone: [phone] RA Area 4C 12.4 cm2 [facility] [employer] Work Phone: RA Volume 31 ml [employer] Work Phone: RV Basal Dimension 2.8 cm [facility] [employer] [employer] Phone: RV Free Wall Peak S' 16.8 cm/s [employer] Phone: RVSP 26 mmHg [employer] Work Phone: TAPSE 2.3 cm 1.7 cm [employer] Phone: TR Max Velocity 2.42 m/s [facility] [employer] Phone: TR Peak Gradient 23 mmHg [facility] [employer] Phone: [facility] Phone: Cardiac echo study Procedure on 06-02-2025 Left Atrium: Left at rium size is normal. There is a large [...] evaluate for intracardiac shunt. No shunt seen. [facility] CV CPACS Radiology Study observation (narrative) [facility] Coding Summaryon 06-02-2025 Coding Summary HTMLBase 64 QeisnnbbIVk2kYm+PGhlYWQ+P [id number] lOSywgQVBQTElOSyIgbmFtZT1 kaXNjZXJu IC8+NH5rMGFdBrgjkGKcq5V3d MC8A54yyh5eZMqghTQ3CEJvIv Mhconnp5wtxZb6QWluExecZiW t FIZhaB20CKW6bB67Gc18bGUsn JYko7danTk5YsQjOIPlWXQ6iQ mgXWsuh5OvRYQoZ19ljJOha6H 6 DBQepVumgGGvGqWywMN9tE8kK Jegzwxbr1mvzbuyRbw3kj31oW Ojc1A0jGG0O4KmyuY5CYIezJM g ZgjczFPSyH7pgoouk9edwwkqF nZmMGRoNDx7WLv5CUHioDrtSp SbAF26BUT7RDJzpwHhX5VtNNK s fCgwAdM5w3H1Qe8WU9QKTppxW 1VNTUFSWTwvdGQ+SL91ig00E0 PfGxnxJcl8NVMaGFA8wES0jO4 n EWPoFRofq3G9gBJ7H9HkrjFfi s2qc4adIRJpZWhpQ18iwXWhf1 V3GDYrhZS8XVFtbGvlQpVvqE7 3 Oyc+XCKbhIrpc6XfDsiyt8unk 0zoaYm1FzdeRAOqtjSdwAgqVU T8r3KfEh9kQEGibOE2mLW2nK4 i ImAcSqG2WCabY625TkNlqHPmX nuyN02lD6DtlOO+EMLvQoq2FN CxeOvvVF8gH2FfUGNdzmoqhYZ m uVpxJQ0dXMXvqogzCTZwfJ7yT TSpO9q5ViHqPpF7JSvjR0ItVX ZurxhuBy01lX5pJsNhXsU8LWe u F9MsgeC1JFUfmCAtCXlkGGN5H 78xr7G6RHMzBVMfTRM7nLZ6bW 1hbGlnbjogbGVmdDsgdmVydGl j EQlmATecX055NRExoFdpCyCtO GluZyBEYXRlOiAgMDkvMTEvMj AyNTwvdGQ+LEOjYOQ5fYzqFGA n sDNjDBvyKd0gpXoaaFbxLC5sN CMgcndgTMRfnY7hDVDllMAqnQ egGR1vYZRjduyje298DaOsKFL 0 CRDlzIDqJ4IbeE3vSdKvANYnW SAbD8MrkIOqVGquE241ESxpBi Y2ZXObczZsP7JeLKRdyVnpGlB 0 e2X7Vb3Bz2EbjdazX1IgeOHiK zSkOjyeAAt1A9PiXzprgTP+PC 83TAGrOO05YNn1DBC2fEhjOGt i WZHnT5FlzV5fZaIuFIKkSHWrK yc+PHRhYmxlIHdpZHRoPScxMD ImXiDglKlqRG0gGo0vULMkDFZ v yTserPSsBsEqu2nxPQCrGBhyK I0hsUdiW7IijRV6TMIaj4d3Xd 16G43nY7TwuPW+XRWvzSM1gUG 0 iG2aGwRaKwW5MXnoP114LdLxd UQcZnoxg8wkt9bmyAs8LjK6CT QjrzFaeWcpWSW4m7UdLr76R96 s IHdpZHRoPSIxNSUiIHZhbGlnb s4msB1vCo8+ILFgzNJ0fKZ2hK 7aHgFrQnV7FQrmK337ZoAuvKK v Cikda7zqm9fwxBq3OiMlNMVwe dHmoExmJDD4n1BoWc79Y0HuaE ejw3FgGpb9ns00mKClf8G7gHT 9 P2WsBMCylfykfIAytGvsDO2lD PMasrukAUDnrH9yUQPjC5h2Ky TuZmA4HFqiL6FitjY1FCFffHA g SCEubWETfY8pcdjsy8tyilwdH iGhZYYfNBs9VOe8MXOqdWdrHb UrZTF3WyH0HID6wCLosO2oyAf n xtobhU5pIni+VTC0rLEdqNCCU D4xMtiekHD+EJNnYGG8zQxdJE qsCUEhoE8iMYPyC9v5YtNxRgQ 1 SFvhE4ZedgZ8WYCopJVxDJJay FLPsN3jhkjrk5mjlzdvGtXeZY PdIPr8RPl8HFWhcEvvNiZpSNK 0 JaL8LZL9aWZzaM9ckZthtmukx G9wOyc+OdvrsXwqUFR6JPw8X2 ZaQba3RZYyrLxaJQ8tvXDdBPg u Re1yvItavRgsOP5xJBFyuksnb 578BhYwh7xaXVVtmAAhEVpaGC G7J50ni4N1JRZpGMZgWMQ5aTU 4 zO4xwRnjtzghkEFqmRbsevJpw QknIKoxRLpoD882YWTzgLjjEo PbTTp7G9IdPoq3ICIcxVmnCK8 n vFUfCHhkSi0unVnsrIxePL7yA AWskxyjg295BuCgk4pfDAYyaM RxJYcpIAW2R02wp4V2NNHnYZM w URI7pNO8bC0ceCuwlgqpnSWny CrjuzXdaDvxNOsuEGleS490BB MeqNbfNhBbjDy5U6EqXrz9GUR z pShjLT6vkUOpXYqwGf3kgXxpy NprWR4uZZYafxhbx959AbToy1 taMTJnePDbQOxaFRP0U37xb9Z 6 UFEbAPCfVRD7gBZ3iU3ufJzzt jogbGVmdDsgdmVydGljYWwtYW dmD735WAXzbNahMzJuzLznmyA g ALnyAZk4U5ItZvnkdAL+PC90Y VZiSV48zBPmlNAmm3vjbTd1Ua PnYFTiMOG8ySajWHele6HrBNP t U96tiPHzv5N3ZETjnIvviVUeG iIlqBD6gX1fQUrjuwvgd4uplj scKqmzj8bake50eT60Y52vDSy p XYGdRJPlYQJyWWFmjWafyz9ne G9wIi8+OIFzsSU0bKJ2uP0dHP MkNaT4PKpvF888ZjGhqLMxXnc j p4aru1iuyXc5WoN8PMDdplUpa VnlLEE3o8PoUq34B44sRFvnEA MlHYAuZHRvEWNfdYuyuk8ztK8 w Ii8+SQIgwOC6eVE8iE0sTiSvN gT5WWaaD892SaGnvAIsNoejU7 4dW8DyjBV+LTVhOks9HALssGo s ZF2ddBQjXHoxFt0cXCZ8SqZjT qScIHczK1WpZQFbnslfbsdtrC K0ACFqPOEqtY06Uj9stVodLZX w aPIWbI4nnnczn3njkhhuMpBqP AJpCWe0TGs5APRqaScoCuNcQJ L8BoS9BEZ8nWJqqD5qzNbonpv g hV1zN0AfPNQwqpmmFa19yJ2fP zQyGsG5SYuyNum+F1QVMVBRQL BLUMARQLPbEFaXWF0WRD76YR6 8 xTFzj5E2fPB2U3FbSPIwkduuy kgoiQF5VFEvRFDamL55vPSiXN vdQz2gn7Z3x160YPHsBNThlG8 7 It5sqGvvVUDpaJIFsD9ijatub 6dgiqxjLwPuFAKwBVk6AZh0ZX XceUyrRdJoAFM7DuV3BYQ6dVX h tX2juFurhgmszY6mJmf+MDUvM tmvYQu0XRwbpFR+CWCxZPP1cI yiQEopMHRpbB0rUXRqU4w2VuU w FaV5BAjqK3VeAQVkwwqmAw76r H9zKxTiCiR3AGpjH1MgujX5TY IryCErURorDGX1N38kc7Q2NGA w PTSqEYV2vKN8hW8qhOylczkax GVmdDsgdmVydGljYWwtYWxpZ2 73GEKarQmsBfpbMPheOUGxWX1 0 AC65hJQqj9L7qKB3M8HoAZZcb kjmzhjrcZG5QXVnQFRmnC96rR OgNFskQe8bg8K0a561LAWeZTG w tF10Rv5pvTlhWZEqfHVXcU4kv icmc8ftwtjwNcIxQXZbPOa5QA f0OMMqfClhRdZqPNT4UiV0HDJ 0 pIRztL4qoGbqxbqqsY5zJnl+R oOBAMwNPK02GM83wWZro2V8tS J6X8BlQAWgktknhaevbBC8SPC u LKSjaD36iSVfWQhlLw7ha6J1k 066WYXhTZQweZ77Ye8yaMguXP YlbXDRzA7qayuet9tnfuhvVwV w UIVrAIu6XFu7AQZhlHuaXsNdH VC9NfQ3TBZ2nPZvsS8tfPkmuy qcxR0hFuy+HQ6ratshgdW3BA8 0 RH40Q1OxKpjepSRyhCR+PHRhY mxlIHdpZHRoPScxMDAlJyBzdH tzOE1gZo1fKURoLCFnfHngmSG l HeFqe6ihDCSrYZhqYD5mwFpdO 0PvlAE0TJNlc8c0Hn35J01aY8 JvdXA+ROYmhVG2qDG9tH9aCyX l YjJ0BUtmW419YxSwmYNaIszgh 6bpo6rczNj5WuCcKPDgzkWarO dqHCS4o8LnSt70F78mNSbvPQK o FRXsJHMiGRNstGfrhv3ovH9lW i8+DMSkuWO6aOQ9rC4vBuXfJe N4LQakS692RnJvlPAbXvcyL81 s K1BrxQJ+EGUjThu2DKEzfTyeX P9ceXPdGFdmAy7zZWJ6ImMmWf IpGTcjW1DaOSFbbosatykrgCB 6 NBMrPGPnfO24Pn8nmOukPh2eS HWeTWX1EYQgtZAwM1VtgG5fFu AzVTLxBGYoE6TkeEGkPGntZ30 6 ITvvEzE6RCTgrrNdL9LuMASuc UpiQwX7m5P8Pr6NpKipyWSlLA 9cQdQyRTp7G4EbBzv5JCUogGx s HP4slWVvPLcvWx5kzVcpsKgsA A7sMBJwemvht919RuQnt4ylCA FtvLIrKUlzFGP9O07fv3Y7AWQ w NWGrYEU6wHA4lK7acAmgolmkj GVmdDsgdmVydGljYWwtYWxpZ2 19XXDwrMhxMhKXOue8D1TsWad 0 TASlnCgtSP3fjVIsEDsuNa1xg LetlEojNM8kCGRvjyhtn248Rl Hqj0xmDAWykGMiSAczUBJ7P49 s k4E1BEYaCKSuMYF8kNQ0hE7ce GlnbjogbGVmdDsgdmVydGljYW bjDOgyT486WJSheVieKq6ASgk 8 F0RgKwd8PELmaPrsNK1pySAbF RnjXt4uiYscmQowGZ6eEWYqrm aci890MiYdn4jyEVNbeRFcVDf t MZH8P38wa7T6KJAzMBYqYCG1d WM6lC9dtByyoefddTLgnDrisb RynRhwZWxzMMvdA991FLOsqNk n PlBheWVyOjwvdGQ+WC91yw93X 6HaZauhZom0ZJJrSOK7yAT4kL 0zGETyCIbka9Q4mWA6V6ZyqtH l ci1 (more content not included)... Normal [facility] APTTon 06-01-2025 aPTT Coag (Bld) [Time] 26.5 s Andrea [facility] Comment on above: IV Heparin Therapy Range: 66.0-92.0 sec [facility] aPTT Coag (Bld) [Time] 26.5 s Normal 23.0-36.5 [facility] Comment on above: Result Comment: IV Heparin Therapy Range: 66.0-92.0 sec Performed By: #### B MP, MG, CDP, SUJATA #### [employer] [address] [place] [address] [employer]ounder Ceo & President: Buddy Drake MD aPTT Coag (Bld) [Time] 24.9 s [facility] Comment on above: IV Heparin Therapy Range: 66.0-92.0 sec [facility] aPTT Coag (Bld) [Time] 24.9 s Normal 23.0-36.5 [facility] Comment on above: Result Comment: IV Heparin Therapy Range: 66.0-92.0 sec Performed By: #### B MP, MG, CDP, SUJATA #### [employer] [address] [place], [place] [id number] Founder Ceo & President: Buddy Drake MD Basic Metab w/rfx MGon 06-01 Anion gap [Moles/Vol] 9 mmol/L Normal 9-16 [facility] Comment on above: Performed By: #### B MP, MG, CDP, SUJATA #### [employer] [address] [place], [place] [id number] Founder Ceo & President: Buddy Drake MD Calcium [Mass/Vol] 9.3 mg/dL Normal 8.6-10.4 [facility] Comment on above: Performed By: #### B MP, MG, CDP, SUJATA #### [address] [address] Founder Ceo & President: Buddy Drake MD Chloride [Moles/Vol] 104 mmol/L Normal 98-107 [facility] Comment on above: Performed By: #### B MP, MG, CDP, SUJATA #### [facility] [address] [place] [id number] [employer]ounder Ceo & President: Buddy Drake MD CO2 [Moles/Vol] 25 mmol/L Normal 20-31 [facility] Comment on above: Performed By: #### B MP, MG, CDP, SUJATA #### [address] [address] [employer] Ceo & President: Buddy Drake MD Creatinine [Mass/Vol] 0.7 mg/dL Normal 0.6-0.9 [facility] Comment on above: Performed By: #### B MP, MG, CDP, SUJATA #### [address] [address] Founder Ceo & President: Buddy Drake MD GFR/1.73 sq M.predicted among non-blacks MDRD (S/P/Bld) [Vol rate/Area] 87 mL/min/{1.73_m2} Normal >60 [facility] Comment on above: Result Comment: These results are not intended for [...] following therapy that affects renal tubular secretion. Performed By: #### B MP, MG, CDP, SUJATA #### [address] [address] [employer]ounder Ceo & President: Buddy Drake MD Glucose [Mass/Vol] 101 mg/dL High 74-99 [facility] Comment on above: Performed By: #### B MP, MG, CDP, SUJATA #### [facility] [address] [place] [address] Founder Ceo & President: Buddy Drake MD Potassium [Moles/Vol] 4.0 mmol/L Normal 3.7-5.3 [facility] Comment on above: Performed By: #### B MP, MG, CDP, SUJATA #### [facility] [address] [place] [address] Founder Ceo & President: Buddy Drake MD Sodium [Moles/Vol] 138 mmol/L Normal 136-145 [facility] Comment on above: Performed By: #### B MP, MG, CDP, SUJATA #### [facility] [address] [place] [id number] Founder Ceo & President: Buddy Drake MD Urea nitrogen [Mass/Vol] 14 mg/dL Normal 8-23 [facility] Comment on above: Performed By: #### B MP, MG, CDP, SUJATA #### [facility] [address] [place] [id number] Founder Ceo & President: Buddy Drake MD Basic Metabolic Panel w/ Ref juan to MGon 06-01-2025 Anion gap [Moles/Vol] 9 mmol/L 9 - 16 mmol/L [facility] Calcium [Mass/Vol] 9.3 mg/dL 8.6 - 10. 4 mg/dL [facility] Chloride [Moles/Vol] 104 mmol/L 98 - 10 7 mmol/L [facility] CO2 [Moles/Vol] 25 mmol/L 20 - 31 mmol/L [facility] Creatinine [Mass/Vol] 0.7 mg/dL 0.6 - 0.9 mg/dL [facility] Est, Glom Filt Rate 87 - PINF [facility] Comment on above: These results are not intended for use [...] following therapy that affects renal tubular secretion. Glucose [Mass/Vol] 101 mg/dL High 74 - 99 mg/dL [facility] Interpretation and review of laboratory results Abnormal [facility] Potassium [Moles/Vol] 4.0 mmol/L 3.7 - 5.3 mmol/L [facility] Sodium [Moles/Vol] 138 mmol/L 136 - 145 mmol/L [facility] Urea nitrogen [Mass/Vol] 14 mg/dL 8 - 23 mg/dL [facility] CT HEAD WO CONTRASTon 2024 CT HEAD WO CONTRAST EXAM: CT HEAD WITHOUT CONTRAST 06/01/2025 10:22:43 AM TECHNIQUE: CT of the head was performed without the administration of intravenous contrast. Automated exposure control, iterative reconstruction, and/or weight based adjustment of the mA/kV was utilized to reduce the radiation dose to as low as reasonably achievable. COMPARISON: MR Brain 05/31/2025. CLINICAL HISTORY: Change in mental status. FINDINGS: BRAIN AND VENTRICLES: Regions of hypoattenuation in the left posterior cerebral artery territory, left thalamus and left cerebellar hemisphere are unchanged in appearance compared to a 05/31/2025 MRI where the findings were compatible with acute infarct. Small foci of encephalomalacia in the right and left frontal lobes unchanged. No acute hemorrhage. No hydrocephalus. No extra-axial collection. No mass effect or midline shift. ORBITS: No acute abnormality. SINUSES: No acute abnormality. SOFT TISSUES AND SKULL: No acute soft tissue abnormality. No skull fracture. IMPRESSION: 1. Left occipital lobe, thalamus, and cerebellar hemisphere acute infarcts unchanged. No intracranial hemorrhage identified. Interpreted by: Pedro Hagan MD Signed by: Pdero Hagan MD 06/01/25 Final result Normal [facility] CT Head WO contraston 2024 1. Left occipital lo be, thalamus, and cerebellar hemisphere acute infarcts unchanged. No intracranial hemorrhage identified. [facility] RIS CONSOLIDATED EXAM: CT HEAD WITHOUT CONTRAST 06/01/2025 10:22:43 AM TECHNIQUE: CT of the head was performed without the administration of intravenous contrast. Automated exposure control, iterative reconstruction, and/or weight based adjustment of the mA/kV was utilized to reduce the radiation dose to as low as reasonably achievable. COMPARISON: MR Brain 05/31/2025. CLINICAL HISTORY: Change in mental status. FINDINGS: BRAIN AND VENTRICLES: Regions of hypoattenuation in the left posterior cerebral artery territory, left thalamus and left cerebellar hemisphere are unchanged in appearance compared to a 05/31/2025 MRI where the findings were compatible with acute infarct. Small foci of encephalomalacia in the right and left frontal lobes unchanged. No acute hemorrhage. No hydrocephalus. No extra-axial collection. No mass effect or midline shift. ORBITS: No acute abnormality. SINUSES: No acute abnormality. SOFT TISSUES AND SKULL: No acute soft tissue abnormality. No skull fracture. [facility] Pedro Finn MD - 06/01/2025 EXAM: CT HEAD WITHOUT CONTRAST 06/01/2025 10:22:43 AM TECHNIQUE: CT of the head was performed without the administration of intravenous contrast. Automated exposure control, iterative reconstruction, and/or weight based adjustment of the mA/kV was utilized to reduce the radiation dose to as low as reasonably achievable. COMPARISON: MR Brain 05/31/2025. CLINICAL HISTORY: Change in mental status. FINDINGS: BRAIN AND VENTRICLES: Regions of hypoattenuation in the left posterior cerebral artery territory, left thalamus and left cerebellar hemisphere are unchanged in appearance compared to a 05/31/2025 MRI where the findings were compatible with acute infarct. Small foci of encephalomalacia in the right and left frontal lobes unchanged. No acute hemorrhage. No hydrocephalus. No extra-axial collection. No mass effect or midline shift. ORBITS: No acute abnormality. SINUSES: No acute abnormality. SOFT TISSUES AND SKULL: No acute soft tissue abnormality. No skull fracture. IMPRESSION: 1. Left occipital lobe, thalamus, and cerebellar hemisphere acute infarcts unchanged. No intracranial hemorrhage identified. [facility] Radiology Study observation (narrative) [facility] CT Head WO contrastOrdered B y: Pedro Hagan on 06-01-2025 [facility] Work Phone: Hemoglobin A1Con 06-01-2025 Average glucose Estimated from glycated hemoglobin (Bld) [Mass/Vol] 111 mg/dL [employer] Comment on above: The ADA and AACC rec ommend providing the estimated average glucose result to permit better patient understanding of their HBA1c result. HbA1c (Bld) [Mass fraction] 5.5 % 4.0 - 6.0 % [facility] [employer] [facility] Glucose [Mass/Vol] 111 mg/dL Normal [facility] Comment on above: Result Comment: The ADA and AACC recommend providing the estimated average glucose result to permit better patient understanding of their HBA1c result. Performed By: #### B MP, MG, CDP, SUJATA #### [employer] [address] [place], [place] [id number] Founder Ceo & President: Buddy Drake MD HbA1c (Bld) [Mass fraction] 5.5 % Normal 4.0-6.0 [facility] Comment on above: Performed By: #### B MP, MG, CDP, SUJATA #### [employer] [address] [place] [address] Founder Ceo & President: Buddy Drake MD Lipid Panelon 06-01-2025 Cholesterol [Mass/Vol] 172 mg/dL 0 - 1 99 mg/dL [employer] Comment on above: Cholesterol Guidelines: <200 Desirable 200-240 Borderline >240 Undesirable Cholesterol in HDL [Mass/Vol] 82 mg/dL 40 - PINF mg/dL [employer] Comment on above: HDL Guidelines: <40 Undesirable 40-59 Borderline >59 Desirable Cholesterol in LDL [Mass/Vol] 62 mg/dL 0 - 100 mg/dL [employer] Comment on above: LDL Guidelines: <100 Desirable 100-129 Near to/above Desirable 130-159 Borderline >159 Undesirable Direct (measured) LDL and calculated LDL are not interchangeable tests. Cholesterol in VLDL [Mass/Vol] 28 mg/dL 1 - 30 mg/dL [employer] Cholesterol.total/Chol esterol in HDL [Mass ratio] 2.1 {ratio} NINF - 5.0 [employer] Triglyceride [Mass/Vol] 139 mg/dL NINF - 150 mg/dL [facility] Comment on above: Triglyceride Guidelines: <150 Desirable 150-199 Borderline 200-499 High >499 Very high Based on AHA Guidelines for fasting triglyceride, June 2012. [facility] Lipid Profileon 06-01-2025 Cholesterol [Mass/Vol] 172 mg/dL Normal 0-199 [facility] Comment on above: Result Comment: Cholesterol Guidelines: <200 Desirable 200-240 Borderline >240 Undesirable Performed By: #### B MP, MG, CDP, SUJATA #### [employer] [address] [place] [id number] [employer] Ceo [employer] President: Buddy Drake MD Cholesterol in HDL [Mass/Vol] 82 mg/dL Normal >40 [facility] Comment on above: Result Comment: HDL Guidelines: <40 Undesirable 40-59 Borderline >59 Desirable Performed By: #### B MP, MG, CDP, SUJATA #### [facility] [employer] [address] [place] [id number] [employer] Ceo & President: Buddy Drake MD Cholesterol in LDL [Mass/Vol] 62 mg/dL Normal 0-100 [facility] Comment on above: Result Comment: LDL Guidelines: <100 Desirable 100-129 Near to/above Desirable 130-159 Borderline >159 Undesirable Direct (measured) LDL and calculated LDL are not interchangeable tests. Performed By: #### B MP, MG, CDP, SUJATA #### [employer] [address] [place] [id number] Founder Ceo & President: Buddy Drake MD Cholesterol in VLDL [Mass/Vol] 28 mg/dL Normal 1-30 [facility] Comment on above: Performed By: #### B MP, MG, CDP, SUJATA #### [employer] [address] [place] [id number] Founder Ceo & President: Buddy Drake MD Cholesterol.total/Chol esterol in HDL [Mass ratio] 2.1 {ratio} Normal <5.0 [facility] Comment on above: Performed By: #### B MP, MG, CDP, SUJATA #### [employer] [address] [place] [id number] Founder Ceo & President: Buddy Drake MD Triglyceride [Mass/Vol] 139 mg/dL Normal <150 [facility] Comment on above: Result Comment: Triglyceride Guidelines: <150 Desirable 150-199 Borderline 200-499 High >499 Very high Based on AHA Guidelines for fasting triglyceride, June 2012. Performed By: #### B MP, MG, CDP, SUJATA #### [facility] [address] [place] [address] Founder Ceo & President: Buddy Drake MD PREVIOUS SPECIMENon 06-01-20 [facility] Portable XR Chest AP single viewon 06-01-2025 Mild central pulmona ry vascular congestion. No consolidation or pleural effusion. [facility] RIS CONSOLIDATED EXAMINATION: ONE XRAY VIEW OF THE CHEST 06/01/2025 9:59 am COMPARISON: None. HISTORY: ORDERING SYSTEM PROVIDED HISTORY: acute hypoxic respiratory failure TECHNOLOGIST PROVIDED HISTORY: acute hypoxic respiratory failure FINDINGS: Normal cardiomediastinal silhouette size and morphology. Central pulmonary vascular congestion. No overt pulmonary edema. No consolidation or pleural effusion. No appreciable pneumothorax. Cardiac loop recorder device. No acute fracture. [facility] RIS CONSOLIDATED Marcy Downs MD - 06/01/2025 EXAMINATION: ONE XRAY VIEW OF THE CHEST 06/01/2025 9:59 am COMPARISON: None. HISTORY: ORDERING SYSTEM PROVIDED HISTORY: acute hypoxic respiratory failure TECHNOLOGIST PROVIDED HISTORY: acute hypoxic respiratory failure FINDINGS: Normal cardiomediastinal silhouette size and morphology. Central pulmonary vascular congestion. No overt pulmonary edema. No consolidation or pleural effusion. No appreciable pneumothorax. Cardiac loop recorder device. No acute fracture. IMPRESSION: Mild central pulmonary vascular congestion. No consolidation or pleural effusion. [facility] Radiology Study observation (narrative) [employer] Portable XR Chest AP single viewOrdered By: Marcy Downs on 06-01-2025 [employer] Work Phone: XR CHEST PORTABLEon 06-01-20 25 XR CHEST PORTABLE EXAMINATION: ONE XRAY VIEW OF THE CHEST 06/01/2025 9:59 am COMPARISON: None. HISTORY: ORDERING SYSTEM PROVIDED HISTORY: acute hypoxic respiratory failure TECHNOLOGIST PROVIDED HISTORY: acute hypoxic respiratory failure FINDINGS: Normal cardiomediastinal silhouette size and morphology. Central pulmonary vascular congestion. No overt pulmonary edema. No consolidation or pleural effusion. No appreciable pneumothorax. Cardiac loop recorder device. No acute fracture. IMPRESSION: Mild central pulmonary vascular congestion. No consolidation or pleural effusion. Interpreted by: Marcy Downs MD Signed by: Marcy Downs MD 06/01/25 Final result Normal [facility] 36on 05-31-2025 36 Thank you, I will le t every one know. I hope she will be ok. Normal [facility] APTTon 05-31-2025 aPTT Coag (Bld) [Time] 32.4 s [facility] [employer] Comment on above: IV Heparin Therapy Range: 66.0-92.0 sec [facility] [employer] aPTT Coag (Bld) [Time] 32.4 s Normal 23.0-36.5 [facility] Comment on above: Result Comment: IV Heparin Therapy Range: 66.0-92.0 sec Performed By: #### P TT #### [employer] [address] [place] [phone] [employer] Ceo [employer] President: Buddy Drake MD aPTT Coag (Bld) [Time] 22.8 s Low [employer] Comment on above: IV Heparin Therapy Range: 66.0-92.0 sec Interpretation and review of laboratory results Abnormal [facility] [employer] aPTT Coag (Bld) [Time] 22.8 s Low 23.0-36.5 [facility] Comment on above: Result Comment: IV Heparin Therapy Range: 66.0-92.0 sec Performed By: #### P T, PTT, HEPXA #### [employer] [address] [place] [phone] Founder Ceo [employer] President: Buddy Drake MD Anti-XA, Heparinon Anti-XA Unfrac Heparin 1.46 IU/L [facility] [employer] Comment on above: This test has not been validated or calibrated for therapies other than unfractionated heparin. Interpretation of the result in relation to other therapies must be done with caution and within clinical context. Bon [facility] Anti-XA Unfrac Heparin 1.60 IU/L Andrea n [facility] Comment on above: This test has not been validated or calibrated for therapies other than unfractionated heparin. Interpretation of the result in relation to other therapies must be done with caution and within clinical context. Basic Metab w/rfx MGon 05-31 Anion gap [Moles/Vol] 10 mmol/L Normal 9-16 [facility] Comment on above: Performed By: #### B MP, MG, CDP, SUJATA #### [facility] [employer] [address] [place] [address] Founder Ceo & President: Buddy Drake MD Calcium [Mass/Vol] 9.3 mg/dL Normal 8.6-10.4 [facility] Comment on above: Performed By: #### B MP, MG, CDP, SUJATA #### [facility] [employer] [address] [place] [address] Founder Ceo & President: Buddy Drake MD Chloride [Moles/Vol] 103 mmol/L Normal 98-107 [facility] Comment on above: Performed By: #### B MP, MG, CDP, SUJATA #### [facility] [address] [place] [address] Founder Ceo & President: Buddy Drake MD CO2 [Moles/Vol] 25 mmol/L Normal 20-31 [facility] Comment on above: Performed By: #### B MP, MG, CDP, SUJATA #### [facility] [address] [place] [address] Founder Ceo & President: Buddy Drake MD Creatinine [Mass/Vol] 0.7 mg/dL Normal 0.6-0.9 [facility] Comment on above: Performed By: #### B MP, MG, CDP, SUJATA #### [facility] [address] [place] [phone] [employer] Ceo [employer] President: Buddy Drake MD GFR/1.73 sq M.predicted among non-blacks MDRD (S/P/Bld) [Vol rate/Area] 87 mL/min/{1.73_m2} Normal >60 [facility] Comment on above: Result Comment: These results are not intended for [...] following therapy that affects renal tubular secretion. Performed By: #### B MP, MG, CDP, SUJATA #### [facility] [employer] [address] [place] [address] F[employer] Ceo [employer] President: Buddy Drake MD Glucose [Mass/Vol] 101 mg/dL High 74-99 [facility] Comment on above: Performed By: #### B MP, MG, CDP, SUJATA #### [facility] [employer] [address] [place] [address] Founder Ceo [employer] President: Buddy Drake MD Potassium [Moles/Vol] 3.5 mmol/L Low 3.7-5.3 [facility] Comment on above: Performed By: #### B MP, MG, CDP, SUJATA #### [facility] [address] [place] [address] Founder Ceo & President: Buddy Drake MD Sodium [Moles/Vol] 138 mmol/L Normal 136-145 [facility] Comment on above: Performed By: #### B MP, MG, CDP, SUJATA #### [facility] [address] [place] [phone] Founder Ceo & President: Buddy Drake MD Urea nitrogen [Mass/Vol] 12 mg/dL Normal 8-23 [facility] Comment on above: Performed By: #### B MP, MG, CDP, SUJATA #### [facility] [address] [place] [phone] Founder Ceo [employer] President: Buddy Drake MD Basic Metabolic Panel w/ Ref juan to MGon 05-31-2025 Anion gap [Moles/Vol] 10 mmol/L 9 - 16 mmol/L [facility] Calcium [Mass/Vol] 9.3 mg/dL 8.6 - 10. 4 mg/dL [facility] Chloride [Moles/Vol] 103 mmol/L 98 - 10 7 mmol/L [facility] CO2 [Moles/Vol] 25 mmol/L 20 - 31 mmol/L [facility] Creatinine [Mass/Vol] 0.7 mg/dL 0.6 - 0.9 mg/dL [facility] Est, Glom Filt Rate 87 - PINF [facility] Comment on above: These results are not intended for use [...] following therapy that affects renal tubular secretion. Glucose [Mass/Vol] 101 mg/dL High 74 - 99 mg/dL [facility] Potassium [Moles/Vol] 3.5 mmol/L Low 3.7 - 5.3 mmol/L [facility] Sodium [Moles/Vol] 138 mmol/L 136 - 145 mmol/L [facility] Urea nitrogen [Mass/Vol] 12 mg/dL 8 - 23 mg/dL [facility] CBCon 05-31-2025 Erythrocyte distribution width (RBC) [Ratio] 15.9 % High 11.8 - 14.4 % [facility] Hematocrit (Bld) [Volume fraction] 29.3 % Low 36.3 - 47.1 % [facility] Hemoglobin (Bld) [Mass/Vol] 8.6 g/dL Low 11.9 - 15.1 g/dL [facility] Interpretation and review of laboratory results Abnormal [facility] MCH (RBC) [Entitic mass] 23.0 pg Low 25.2 - 33.5 pg [facility] MCHC (RBC) [Mass/Vol] 29.4 g/dL 28.4 - 34.8 g/dL [facility] MCV (RBC) [Entitic vol] 78.3 fL Low 82.6 - 102.9 fL [facility] Nucleated RBC/100 WBC (Bld) [Ratio] 0.0 % 0.0 per 100 WBC [facility] Platelet mean volume (Bld) [Entitic vol] 9.7 fL 8.1 - 13.5 fL [facility] Platelets (Bld) [#/Vol] 267 10*3/uL [facility] RBC (Bld) [#/Vol] 3.74 10*6/uL Low 3.95 - 5.11 m/uL [facility] WBC other (Bld) [#/Vol] 7.7 [facility] Erythrocyte distribution width (RBC) [Ratio] 15.9 % High 11.8-14.4 [facility] Comment on above: Performed By: #### B MP, MG, CDP, SUJATA #### [employer] [address] [place], [place] [id number] [employer]ounder Ceo [employer] President: Buddy Drake MD Hematocrit (Bld) [Volume fraction] 29.3 % Low 36.3-47.1 [facility] Comment on above: Performed By: #### B MP, MG, CDP, SUJATA #### [employer] [address] [place], [place] [id number] [employer] Ceo [employer] President: Buddy Drake MD Hemoglobin (Bld) [Mass/Vol] 8.6 g/dL Low 11.9-15.1 [facility] Comment on above: Performed By: #### B MP, MG, CDP, SUJATA #### [employer] [address] [place], [place] [id number] [employer] Ceo [employer] President: Buddy Drake MD MCH (RBC) [Entitic mass] 23.0 pg Low 25.2-33.5 [facility] Comment on above: Performed By: #### B MP, MG, CDP, SUJATA #### [address] [address] [employer]ounder Ceo [employer] President: Buddy Drake MD MCHC (RBC) [Mass/Vol] 29.4 g/dL Normal 28.4-34.8 [facility] Comment on above: Performed By: #### B MP, MG, CDP, SUJATA #### [address] [address] Founder Ceo [employer] President: Buddy Drake MD MCV (RBC) [Entitic vol] 78.3 fL Low 82.6-102.9 [facility] Comment on above: Performed By: #### B MP, MG, CDP, SUJATA #### [address] [address] [employer] Ce[employer] President: Buddy Drake MD NRBC Automated 0.0 per 100 WBC Normal 0.0 [facility] Comment on above: Performed By: #### B MP, MG, CDP, SUJATA #### [address] [address] [employer] President: Buddy Drake MD Platelet mean volume (Bld) [Entitic vol] 9.7 fL Normal 8.1-13.5 [facility] Comment on above: Performed By: #### B MP, MG, CDP, SUJATA #### [address] [address] [employer]ounder Ceo [employer] President: Buddy Drake MD Platelets (Bld) [#/Vol] 267 10*3/uL Normal 138-453 [facility] Comment on above: Performed By: #### B MP, MG, CDP, SUJATA #### [facility] [employer] [address] [place] [address] Founder Ceo [employer] President: Buddy Drake MD RBC (Bld) [#/Vol] 3.74 10*6/uL Low 3.95-5.11 [facility] Comment on above: Performed By: #### B MP, MG, CDP, SUJATA #### [facility] [address] [place], [place] [id number] Founder Ceo & President: Buddy Drake MD WBC (Bld) [#/Vol] 7.7 10*3/uL Normal 3.5-11.3 [facility] Comment on above: Performed By: #### B MP, MG, CDP, SUJATA #### [facility] [address] [place], [place] [id number] Founder Ceo & President: Buddy Drake MD CBC with Auto Differentialon 05-31-2025 Basophils (Bld) [#/Vol] 0.03 10*3/uL [facility] Basophils/100 WBC (Bld) 0 % 0 - 2 % [facility] Eosinophils (Bld) [#/Vol] 0.06 10*3/uL [facility] Eosinophils/100 WBC (Bld) 1 % 1 - 4 % [facility] Erythrocyte distribution width (RBC) [Ratio] 15.8 % High 11.8 - 14.4 % [facility] Hematocrit (Bld) [Volume fraction] 27.8 % Low 36.3 - 47.1 % [facility] Hemoglobin (Bld) [Mass/Vol] 8.1 g/dL Low 11.9 - 15.1 g/dL [facility] Immature granulocytes (Bld) [#/Vol] 0.06 10*3/uL [facility] Immature granulocytes/100 WBC (Bld) 1 % High 0 [facility] Interpretation and review of laboratory results Abnormal [facility] Lymphocytes/100 WBC (Bld) 12 % Low 24 - 43 % [facility] Lymphocytes/100 WBC (Bld) 0.96 % Low [facility] MCH (RBC) [Entitic mass] 22.7 pg Low 25.2 - 33.5 pg [facility] MCHC (RBC) [Mass/Vol] 29.1 g/dL 28.4 - 34.8 g/dL [facility] MCV (RBC) [Entitic vol] 77.9 fL Low 82.6 - 102.9 fL [facility] Monocytes/100 WBC (Bld) 8 % 3 - 12 % [facility] Monocytes/100 WBC (Bld) 0.67 % [facility] Neutrophils/100 WBC (Bld) 78 % High 36 - 65 % [facility] Nucleated RBC/100 WBC (Bld) [Ratio] 0.0 % 0.0 per 100 WBC [facility] Platelet mean volume (Bld) [Entitic vol] 10.1 fL 8.1 - 13.5 fL [facility] Platelets (Bld) [#/Vol] 275 10*3/uL [facility] RBC (Bld) [#/Vol] 3.57 10*6/uL Low 3.95 - 5.11 m/uL [facility] RBC (Bld) [#/Vol] ANISOCYTOSIS PRESENT MICROCYTOSIS PRESENT [facility] [employer] Segmented neutrophils/100 WBC (Bld) 6.27 % [facility] WBC other (Bld) [#/Vol] 8.1 [facility] CBC with Diffon 05-31-2025 Abs. Basophil 0.03 k/uL Normal 0.00-0.20 [facility] Comment on above: Performed By: #### B MP, MG, CDP, SUJATA #### [employer] [address] [place] [address] [employer]ounder Ceo [employer] President: Buddy Drake MD Abs.Imm.Granulocyte 0.06 k/uL Normal 0.00-0.30 [facility] Comment on above: Performed By: #### B MP, MG, CDP, SUJATA #### [employer] [address] [place] [address] Founder Ceo [employer] President: Buddy Drake MD Abs.Neutrophil (Seg) 6.27 k/uL Normal 1.50-8.10 [facility] Comment on above: Performed By: #### B MP, MG, CDP, SUJATA #### [employer] [address] [place] [address] Founder Ceo [employer] President: Buddy Drake MD Basophils/100 WBC (Bld) 0 % Normal 0-2 [facility] Comment on above: Performed By: #### B MP, MG, CDP, SUJATA #### [facility] [employer] [address] [place] [address] [employer] Ceo [employer] President: Buddy Drake MD Eosinophils (Bld) [#/Vol] 0.06 10*3/uL Normal 0.00-0.44 [facility] Comment on above: Performed By: #### B MP, MG, CDP, SUJATA #### [facility] [employer] [address] [place] [address] [employer] President: Buddy Drake MD Eosinophils/100 WBC (Bld) 1 % Normal 1-4 [facility] Comment on above: Performed By: #### B MP, MG, CDP, SUJATA #### [facility] [employer] [address] [place] [address] [employer] President: Buddy Drake MD Erythrocyte distribution width (RBC) [Ratio] 15.8 % High 11.8-14.4 [facility] Comment on above: Performed By: #### B MP, MG, CDP, SUJATA #### [facility] [employer] [address] [place] [address] Founder Ceo [employer] President: Buddy Drake MD Hematocrit (Bld) [Volume fraction] 27.8 % Low 36.3-47.1 [facility] Comment on above: Performed By: #### B MP, MG, CDP, SUJATA #### [facility] [employer] [address] [place] [address] [employer] Ce[employer] President: Buddy Drake MD Hemoglobin (Bld) [Mass/Vol] 8.1 g/dL Low 11.9-15.1 [facility] Comment on above: Performed By: #### B MP, MG, CDP, SUJATA #### [facility] [address] [place] [address] [employer]ounder Ceo & President: Buddy Drake MD Immature granulocytes/100 WBC (Bld) 1 % High 0 [facility] Comment on above: Performed By: #### B MP, MG, CDP, SUJATA #### [facility] [address] [place] [address] [employer] President: Buddy Drake MD Lymphocytes (Bld) [#/Vol] 0.96 10*3/uL Low 1.10-3.70 [facility] Comment on above: Performed By: #### B MP, MG, CDP, SUJATA #### [facility] [address] [place] [address] [employer] President: Buddy Drake MD Lymphocytes/100 WBC (Bld) 12 % Low 24-43 [facility] Comment on above: Performed By: #### B MP, MG, CDP, SUJATA #### [place] [address] [employer] President: Buddy Drake MD MCH (RBC) [Entitic mass] 22.7 pg Low 25.2-33.5 [facility] Comment on above: Performed By: #### B MP, MG, CDP, SUJATA #### [place] [address] [employer] President: Buddy Drake MD MCHC (RBC) [Mass/Vol] 29.1 g/dL Normal 28.4-34.8 [facility] Comment on above: Performed By: #### B MP, MG, CDP, SUJATA #### [facility] [address] [place] [address] [employer]ounder Ce[employer] President: Buddy Drake MD MCV (RBC) [Entitic vol] 77.9 fL Low 82.6-102.9 [facility] Comment on above: Performed By: #### B MP, MG, CDP, SUJATA #### [facility] [address] [place] [address] [employer] President: Buddy Drake MD Monocytes (Bld) [#/Vol] 0.67 10*3/uL Normal 0.10-1.20 [facility] Comment on above: Performed By: #### B MP, MG, CDP, SUJATA #### [address] [address] [employer] President: Buddy Drake MD Monocytes/100 WBC (Bld) 8 % Normal 3-12 [facility] Comment on above: Performed By: #### B MP, MG, CDP, SUJATA #### [address] [address] [employer] President: Buddy Drake MD Neutrophil (Seg) 78 % High 36-65 [facility] Comment on above: Performed By: #### B MP, MG, CDP, SUJATA #### [address] [address] [employer] President: Buddy Drake MD NRBC Automated 0.0 per 100 WBC Normal 0.0 [facility] Comment on above: Performed By: #### B MP, MG, CDP, SUJATA #### [address] [address] [employer] President: Buddy Drake MD Platelet mean volume (Bld) [Entitic vol] 10.1 fL Normal 8.1-13.5 [facility] Comment on above: Performed By: #### B MP, MG, CDP, SUJATA #### [address] [address] [employer] President: Buddy Drake MD Platelets (Bld) [#/Vol] 275 10*3/uL Normal 138-453 [facility] Comment on above: Performed By: #### B MP, MG, CDP, SUJATA #### [address] [address] [employer] President: Buddy Drake MD RBC (Bld) [#/Vol] 3.57 10*6/uL Low 3.95-5.11 [facility] Comment on above: Performed By: #### B MP, MG, CDP, SUJATA #### [address] [address] [employer] President: Buddy Drake MD RBC morphology finding Nom (Bld) ANISOCYTOSIS PRESENT Normal [facility] Comment on above: Result Comment: MICR OCYTOSIS PRESENT Performed By: #### B MP, MG, CDP, SUJATA #### [address] [address] [employer] President: Buddy Drake MD WBC (Bld) [#/Vol] 8.1 10*3/uL Normal 3.5-11.3 [facility] Comment on above: Performed By: #### B MP, MG, CDP, SUJATA #### [address] [address] [employer] President: Buddy Drake MD Comp Metabolic Pr/rfx MGon 0 - Albumin [Mass/Vol] 3.6 g/dL Normal 3.5-5.2 [facility] Comment on above: Performed By: #### B MP, MG, CDP, SUJATA #### [address] [address] [employer] President: Buddy Drake MD Albumin/Glob Ratio 1.3 Normal 1.0-2.5 [facility] Comment on above: Performed By: #### B MP, MG, CDP, SUJATA #### [facility] [employer] [address] [place] [address] [employer]ounder Ce[employer] President: Budyd Drake MD Alkaline Phos 80 U/L Normal 35-104 [facility] Comment on above: Performed By: #### B MP, MG, CDP, SUJATA #### [facility] [employer] [address] [place] [address] [employer]ounder Ce[employer] President: Buddy Drake MD ALT [Catalytic activity/Vol] 9 U/L Low 10-35 [facility] Comment on above: Performed By: #### B MP, MG, CDP, SUJATA #### [address] [address] [employer] President: Buddy Drake MD Anion gap [Moles/Vol] 11 mmol/L Normal 9-16 [facility] Comment on above: Performed By: #### B MP, MG, CDP, SUJATA #### [address] [address] [employer] President: Buddy Drake MD AST [Catalytic activity/Vol] 25 U/L Normal 10-35 [facility] Comment on above: Performed By: #### B MP, MG, CDP, SUJATA #### [facility] [employer] [address] [place] [address] [employer] President: Buddy Drake MD Bilirubin [Mass/Vol] 0.2 mg/dL Normal 0.0-1.2 [facility] Comment on above: Performed By: #### B MP, MG, CDP, SUJATA #### [address] [address] [employer] President: Buddy Drake MD Calcium [Mass/Vol] 9.4 mg/dL Normal 8.6-10.4 [facility] Comment on above: Performed By: #### B MP, MG, CDP, SUJATA #### [address] [address] [employer] President: Buddy Drake MD Chloride [Moles/Vol] 104 mmol/L Normal 98-107 [facility] Comment on above: Performed By: #### B MP, MG, CDP, SUJATA #### [facility] [employer] [address] [place] [address] [employer] President: Buddy Drake MD CO2 [Moles/Vol] 25 mmol/L Normal 20-31 [facility] Comment on above: Performed By: #### B MP, MG, CDP, SUJATA #### [facility] [address] [place] [address] [employer] President: Buddy Drake MD Creatinine [Mass/Vol] 0.7 mg/dL Normal 0.6-0.9 [facility] Comment on above: Performed By: #### B MP, MG, CDP, SUJATA #### [address] [address] [employer] President: Buddy Drake MD GFR/1.73 sq M.predicted among non-blacks MDRD (S/P/Bld) [Vol rate/Area] 87 mL/min/{1.73_m2} Normal >60 [facility] Comment on above: Result Comment: These results are not intended for [...] following therapy that affects renal tubular secretion. Performed By: #### B MP, MG, CDP, SUJATA #### [address] [address] [employer] President: Buddy Drake MD Glucose [Mass/Vol] 107 mg/dL High 74-99 [facility] Comment on above: Performed By: #### B MP, MG, CDP, SUJATA #### [facility] [address] [place] [address] [employer] President: Buddy Drake MD Potassium [Moles/Vol] 3.8 mmol/L Normal 3.7-5.3 [facility] Comment on above: Performed By: #### B MP, MG, CDP, SUJATA #### [address] [address] [employer] President: Buddy Drake MD Protein [Mass/Vol] 6.3 g/dL Low 6.6-8.7 [facility] Comment on above: Performed By: #### B MP, MG, CDP, SUJATA #### [facility] [address] [place], [place] [id number] [employer] President: Buddy Drake MD Sodium [Moles/Vol] 140 mmol/L Normal 136-145 [facility] Comment on above: Performed By: #### B MP, MG, CDP, SUJATA #### [facility] [address] [place], [place] [id number] [employer] President: Buddy Drake MD Urea nitrogen [Mass/Vol] 13 mg/dL Normal 8-23 [facility] Comment on above: Performed By: #### B MP, MG, CDP, SUJATA #### [facility] [address] [place], [place] [id number] [employer] President: Buddy Drake MD Comprehensive Metabolic Pane l w/ Reflex to MGon 05-31-2025 Albumin [Mass/Vol] 3.6 g/dL 3.5 - 5.2 g/dL [facility] Albumin/Globulin [Mass ratio] 1.3 {ratio} 1.0 - 2.5 [facility] ALP [Catalytic activity/Vol] 80 U/L 35 - 104 U/L [facility] ALT [Catalytic activity/Vol] 9 U/L Low 10 - 35 U/L [facility] Anion gap [Moles/Vol] 11 mmol/L 9 - 16 mmol/L [facility] AST [Catalytic activity/Vol] 25 U/L 10 - 35 U/L [facility] Bilirubin [Mass/Vol] 0.2 mg/dL 0.0 - 1 .2 mg/dL [facility] Calcium [Mass/Vol] 9.4 mg/dL 8.6 - 10. 4 mg/dL [facility] Chloride [Moles/Vol] 104 mmol/L 98 - 10 7 mmol/L [facility] CO2 [Moles/Vol] 25 mmol/L 20 - 31 mmol/L [facility] Creatinine [Mass/Vol] 0.7 mg/dL 0.6 - 0.9 mg/dL [facility] Est, Glom Filt Rate 87 - PINF [facility] Comment on above: These results are not intended for use [...] following therapy that affects renal tubular secretion. Glucose [Mass/Vol] 107 mg/dL High 74 - 99 mg/dL [facility] Interpretation and review of laboratory results Abnormal [facility] Potassium [Moles/Vol] 3.8 mmol/L 3.7 - 5.3 mmol/L [facility] Protein [Mass/Vol] 6.3 g/dL Low 6.6 - 8.7 g/dL [facility] [facility] Sodium [Moles/Vol] 140 mmol/L 136 - 145 mmol/L [facility] Urea nitrogen [Mass/Vol] 13 mg/dL 8 - 23 mg/dL [facility] Consent Formson 05-31-2025 Consent Forms [id number] FF [facility] Heparin Anti-Xaon 05-31-2025 Heparin Anti-Xa 1.46 IU/L [facility] Comment on above: Result Comment: This test has not been validated or calibrated for therapies other than unfractionated heparin. Interpretation of the result in relation to other therapies must be done with caution and within clinical context. Performed By: #### B MP, MG, CDP, SUJATA #### [employer] [facility] [place], [place] [id number] Founder Ceo & President: Buddy Drake MD Heparin Anti-Xa 1.60 IU/L [facility] Comment on above: Result Comment: This test has not been validated or calibrated for therapies other than unfractionated heparin. Interpretation of the result in relation to other therapies must be done with caution and within clinical context. Performed By: #### P T, PTT, HEPXA #### [facility] [address] [id number] Founder Ceo & President: Buddy Drake MD MR Brain WO contraston 05-31 Addendum by Mary Lacy MD on 05/31/2025 5:39 PM EDT ADDENDUM #1 The important findings were discussed with Dr. Kendy Hernandez by Dr. Ayad Lacy at 05/31/2025 05:39 PM. 1. [facility] 1. Acute infarct involving the majority of the left SHEET METAL PATTERN CUTTER territory, with smaller acute infarcts also seen in the anterior/inferior left cerebellar hemisphere and left thalamus. No associated hemorrhage or mass effect. 2. 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 3. Mild burden of scattered white matter FLAIR hyperintensities, likely representing chronic microangiopathic ischemic changes in this age group. [facility] EXAM: MRI BRAIN WITHOUT CONTRAST 05/31/2025 03:06:33 PM TECHNIQUE: Multiplanar multisequence MRI of the head/brain was performed without the administration of intravenous contrast. COMPARISON: None available. CLINICAL HISTORY: Stroke like symptoms. FINDINGS: BRAIN AND VENTRICLES: Restricted diffusion throughout the majority of the left SHEET METAL PATTERN CUTTER (posterior cerebral artery) territory with smaller areas [...] marrow signal. No acute soft tissue abnormality. [facility] Ayad Lacy MD - 05/31/2025 EXAM: MRI BRAIN WITHOUT CONTRAST 05/31/2025 03:06:33 PM TECHNIQUE: Multiplanar multisequence MRI of the head/brain was performed without the administration of intravenous contrast. COMPARISON: None available. CLINICAL HISTORY: Stroke like symptoms. FINDINGS: BRAIN AND VENTRICLES: Restricted diffusion throughout the majority of the left SHEET METAL PATTERN CUTTER (posterior cerebral artery) territory with smaller areas [...] infarct involving the majority of the left SHEET METAL PATTERN CUTTER territory, with smaller acute infarcts also seen in the anterior/inferior left cerebellar hemisphere and left thalamus. No associated hemorrhage or mass effect. 2. 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 3. Mild burden of scattered white matter FLAIR hyperintensities, likely representing chronic microangiopathic ischemic changes in this age group. [facility] Radiology Study observation (narrative) [facility] MR Brain WO contrastOrdered By: Ayad Lacy on 05-31-2025 [facility] Work Phone: MRI BRAIN WO CONTRASTon MRI BRAIN WO CONTRAST ADDENDUM #1 The important findings were discussed with Dr. Kendy Hernandez by Dr. Ayad Lacy at 05/31/2025 05:39 PM. 1. Electronically Signed by: AYAD LACY on FriMay 31, 2025 5:39:42 PM EDT EXAM: MRI BRAIN WITHOUT CONTRAST 05/31/2025 03:06:33 PM TECHNIQUE: Multiplanar multisequence MRI of the head/brain was performed without the administration of intravenous contrast. COMPARISON: None available. CLINICAL HISTORY: Stroke like symptoms. FINDINGS: BRAIN AND VENTRICLES: Restricted diffusion throughout the majority of the left SHEET METAL PATTERN CUTTER (posterior cerebral artery) territory with smaller areas [...] infarct involving the majority of the left SHEET METAL PATTERN CUTTER territory, with smaller acute infarcts also seen in the anterior/inferior left cerebellar hemisphere and left thalamus. No associated hemorrhage or mass effect. 2. 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 3. Mild burden of scattered white matter FLAIR hyperintensities, likely representing chronic microangiopathic ischemic changes in this age group. Interpreted by: Ayad Lacy MD Signed by: Ayad Lacy MD 05/31/25 Edited Result - FINAL Normal [facility] Magnesiumon 05-31-2025 Magnesium [Mass/Vol] 1.9 mg/dL 1.6 - 2 .4 mg/dL [facility] Magnesium [Mass/Vol] 1.9 mg/dL Normal 1.6-2.4 [facility] Comment on above: Performed By: #### B MP, MG, CDP, SUJATA #### [employer] [place] [address] Founder Ceo & President: Buddy Drake MD No Panel Informationon 05-31 Interpretation and review of laboratory results Abnormal [facility] PTon 05-31-2025 INR Coag (PPP) [Relative time] 1.1 {INR} Normal [facility] Comment on above: Result Comment: Therapeutic Range: Moderate Anticoagulant Intensity: INR = 2.0-3.0 High Anticoagulant Intensity: INR = 2.5-3.5 Performed By: #### P T, PTT, HEPXA #### [employer] [address] [place], [place] [id number] Founder Ceo & President: Buddy Drake MD PT Coag (PPP) [Time] 14.3 s Normal 11.7-14.9 [facility] Comment on above: Performed By: #### P T, PTT, HEPXA #### [employer] [address] [place] [id number] Founder Ceo & President: Buddy Drake MD Protime-INRon 05-31-2025 INR Coag (PPP) [Relative time] 1.1 {INR} [facility] Comment on above: Therapeutic Range: Moderate Anticoagulant Intensity: INR = 2.0-3.0 High Anticoagulant Intensity: INR = 2.5-3.5 PT Coag (PPP) [Time] 14.3 s [facility] Transfer Noteon 05-31-2025 Transfer Note [id number] FF Normal [facility] Troponinon 05-31-2025 Interpretation and review of laboratory results Abnormal [facility] Troponin I.cardiac High sensitivity method [Mass/Vol] 215 ng/L Critically high 0 - 14 ng/L [facility] Comment on above: High Sensitivity Tro ponin values cannot be compared with other Troponin methodologies. Previous Alert Value Reported [facility] Troponin, High Sens 215 ng/L Critically high 0-14 [facility] Comment on above: Result Comment: High Sensitivity Troponin values cannot be compared with other Troponin methodologies. Previous Alert Value Reported Performed By: #### T ROPI #### [facility] [address] [place], [place] [id number] Founder Ceo & President: Buddy Drake MD Troponin I.cardiac High sensitivity method [Mass/Vol] 236 ng/L Critically high 0 - 14 ng/L [facility] Comment on above: High Sensitivity Tro ponin values cannot be compared with other Troponin methodologies. Previous Alert Value Reported Troponin, High Sens 236 ng/L Critically high 0-14 [facility] Comment on above: Result Comment: High Sensitivity Troponin values cannot be compared with other Troponin methodologies. Previous Alert Value Reported Performed By: #### B MP, MG, CDP, SUJATA #### [facility] [address] [place], [place] [id number] Founder Ceo & President: Buddy Drake MD Interpretation and review of laboratory results Abnormal [facility] Troponin I.cardiac High sensitivity method [Mass/Vol] 222 ng/L Critically high 0 - 14 ng/L [facility] Comment on above: High Sensitivity Tro ponin values cannot be compared with other Troponin methodologies. [facility] Troponin, High Sens 222 ng/L Critically high 0-14 [facility] Comment on above: Result Comment: High Sensitivity Troponin values cannot be compared with other Troponin methodologies. Performed By: #### B ESTELA, MG, TATE, SUJATA #### [employer] [address] [place], [place] [id number] Founder Ceo & President: Buddy Drake MD .Auto Diff 05-30-2025 Auto Bowie % 6 % Normal 1-12 [facility] Comment on above: Performed By: #### 6 111071, [id number], 52489963, 1784412010, 6629194, 6836769897, 2712057 ####[facility] [place] [address] Baso Abs# 0.1 x10 Normal 0.0-0.2 [facility] Comment on above: Performed By: #### 6 943473, [id number], 44630466, 5270252643, 2326722, 9207385973, 1421049 ####[facility] [place] [address] Basophils/100 WBC (Bld) 0.8 % Normal 0.2-2.0 [facility] Comment on above: Performed By: #### 6 184286, [id number], 58241206, 1945716632, 8926946, 2787946010, 1618617 ####[facility] [place] [address] Eos Abs# 0.1 x10 Normal 0.0-0.4 [facility] Comment on above: Performed By: #### 6 235240, 6326115904, 35066390, 0760390250, 0220899, 8325464867, 3087420 ####[facility] [place] [address] Eosinophils/100 WBC (Bld) 1.1 % Normal 0.9-4.0 [facility] Comment on above: Performed By: #### 6 891468, 2156880169, 81887905, 9627186979, 8780611, 3230216548, 7756307 ####[facility] [place] [address] 66567 Lymph Abs# 0.9 x10 Low 1.3-2.9 [facility] Comment on above: Performed By: #### 6 734065, 4403409096, 31702161, 3705076861, 1651488, 8760672319, 3573167 ####[facility] [place] [address] 90669 Lymphocytes/100 WBC (Bld) 12 % Low 14-48 [facility] Comment on above: Performed By: #### 6 996263, 9463286616, 50175547, 6782563846, 5656163, 2459727139, 7374274 ####[facility] [place] [address] 12332 Bowie Abs# 0.5 x10 Normal 0.0-0.8 [facility] Comment on above: Performed By: #### 6 116794, 0050755932, 33308356, 6110067378, 6250692, 2803943151, 2239895 ####[facility] [place] [address] 32819 Neut Abs# 6.0 x10 Normal 1.5-9.2 [facility] Comment on above: Performed By: #### 6 104774, 9578877514, 29999907, 8669318995, 5574023, 4986782058, 4025710 ####[facility] [place] [address] Neutrophils/100 WBC (Bld) 80 % Normal 44-88 [facility] Comment on above: Performed By: #### 6 685097, 0273140195, 04400208, 2280414582, 9787488, 6110580333, 5170931 ####[facility] [place] [address] .QC SARS-CoV-2 (COVID-19)/Fl u/RSV (GeneXpert)on 05-30-2025 Internal Control Pass Normal [facility] Comment on above: Order Comment: Order ed by Discern. [[id number]] Performed By: #### 7 [id number], [id number] #### [facility] [address] [place] [address] CBC w/ Auto Diffon Erythrocyte distribution width (RBC) [Ratio] 17.0 % High 11.5-15.0 [facility] Comment on above: Performed By: #### 6 994035, 1356408484, 53140933, 4535911785, 8669639, 6483848079, 3788250 #### [facility] [address] [place] [address] Hematocrit (Bld) [Volume fraction] 28.4 % Low 33.7-40.4 [facility] Comment on above: Performed By: #### 6 987691, 2433539931, 78481904, 0755524340, 3091109, 0520990006, 8398185 #### [facility] [address] [place] [address] Hemoglobin (Bld) [Mass/Vol] 8.9 g/dL Low 11.3-15.9 [facility] Comment on above: Performed By: #### 6 512314, 7176906759, 86538361, 8509066411, 3228749, 5740190007, 1466343 #### [facility] [address] [place] [address] Man Diff? Auto Invalid Interpretation Code [facility] Comment on above: Performed By: #### 6 413985, 3664305483, 20558076, 5190869902, 7504217, 4890304148, 8670790 #### [facility] [address] [place] [address] 76132 MCH (RBC) [Entitic mass] 23 pg Low 24-34 [facility] Comment on above: Performed By: #### 6 156830, 0080711661, 72227394, 3408332396, 0600355, 5533659625, 4895155 #### [facility] [address] [place] [address] MCHC (RBC) [Mass/Vol] 32 g/dL Normal 26-37 [facility] Comment on above: Performed By: #### 6 057728, 7274087621, 38795588, 2524884137, 2096795, 6451868508, 3913144 #### [facility] [address] [place] [address] MCV (RBC) [Entitic vol] 74 fL Low 81-100 [facility] Comment on above: Performed By: #### 6 177905, 6293414505, 90964864, 7243899515, 6251762, 7725688350, 3307432 #### [facility] [address] [place] [address] Platelet 315 x10 Normal 138-427 [facility] Comment on above: Performed By: #### 6 549939, 1693521452, 87668563, 5379482304, 2048414, 9458505415, 4954199 #### [facility] [address] [place] [address] 47020 Platelet mean volume (Bld) [Entitic vol] 7.8 fL Normal 6.3-10.2 [facility] Comment on above: Performed By: #### 6 030701, 3993461921, 49944001, 1303457145, 3901739, 9270045075, 7990664 #### [facility] [address] [place] [address] RBC 3.84 x10 Normal 3.70-5.30 [facility] Comment on above: Performed By: #### 6 943752, 1475011016, 40033720, 4629021307, 7301613, 6209221606, 9769854 #### [facility] [address] [place] [address] WBC 7.5 x10 Normal 3.5-10.5 [facility] Comment on above: Performed By: #### 6 826727, 3766961589, 49651295, 4199954492, 3450762, 4934209097, 7784604 #### [facility] [address] [place] [address] CKon 05-30-2025 CK [Catalytic activity/Vol] 209 U/L Normal 38-234 [facility] Comment on above: Performed By: #### 6 922268, 6239517025, 51111775, 7242709897, 2213117, 7839682692, 2306042 ####[facility] [place] [address] 98239 CMP Standardon 05-30-2025 eGFR Non AA >60 Invalid Interpretation Code [facility] Comment on above: Performed By: #### 6 695667, 5034646174, 96577683, 6793523227, 5348038, 3975379485, 6313142 ####[facility] [place] [address] 20754 eGFR AA >60 Invalid Interpretation Code [facility] Comment on above: Performed By: #### 6 089575, 6091606712, 46015340, 2713214415, 0669625, 2227436791, 7845599 ####[facility] [place] [address] Albumin [Mass/Vol] 3.7 g/dL Normal 3.5-5.0 [facility] Comment on above: Performed By: #### 6 632722, 4564573214, 16540093, 3212501727, 4285589, 2950407040, 3978881 ####[facility] [place] [address] 33134 Albumin/Globulin [Mass ratio] 1.0 {ratio} Low 1.4-2.6 [facility] Comment on above: Performed By: #### 6 484945, 1183175052, 08221835, 3887221434, 3020621, 9635567108, 5783572 ####[facility] [place] [address] 51309 Alk Phos 70 IU/L Normal 32-91 [facility] Comment on above: Performed By: #### 6 454520, 5527338032, 88592589, 0599233862, 5253681, 8122449558, 4043357 ####[facility] [place] [address] 94974 ALT [Catalytic activity/Vol] 12.0 U/L Low 14.0-54.0 [facility] Comment on above: Performed By: #### 6 484737, 7045094409, 48939205, 6155064270, 8907906, 7062322621, 9858536 ####[facility] [place] [address] 57685 Anion gap [Moles/Vol] 14.6 mmol/L Normal 5.0-19.0 [facility] Comment on above: Performed By: #### 6 416180, 2691266598, 46413807, 9728905979, 5473150, 2480850669, 7594004 ####[facility] [place] [address] 25204 AST [Catalytic activity/Vol] 22 U/L Normal 15-41 [facility] Comment on above: Performed By: #### 6 548804, 4000114445, 87393203, 3313426236, 2145823, 7280355358, 0653678 ####[facility] [place] [address] 68728 Bili Total 0.6 mg/dL Normal 0.3-1.2 [facility] Comment on above: Performed By: #### 6 297398, 0678066011, 49220729, 9900341959, 4472363, 4078781011, 4040406 ####[facility] [place] [address] 51937 Calcium [Mass/Vol] 9.1 mg/dL Normal 8.9-10.3 [facility] Comment on above: Performed By: #### 6 856345, 8538457524, 30499671, 2404350487, 1047245, 6942596785, 7785563 ####[facility] [place] [address] 31483 Chloride [Moles/Vol] 100 mmol/L Low 101-111 [facility] Comment on above: Performed By: #### 6 287094, 8696290586, 60051189, 4174022575, 1221618, 8021565941, 7328629 ####[facility] [place] [address] 06353 CO2 [Moles/Vol] 24 mmol/L Normal 21-32 [facility] Comment on above: Performed By: #### 6 415563, 1769897749, 08010112, 2128076424, 0971464, 5232200163, 0095349 ####[facility] [place] [address] 89367 Creatinine [Mass/Vol] 0.79 mg/dL Normal 0.60-1.30 [facility] Comment on above: Performed By: #### 6 843621, 8154908842, 04513295, 9652603401, 3531960, 9437056911, 8288528 ####[facility] [place] [address] 11305 Globulin (S) [Mass/Vol] 3.5 g/dL Normal 1.5-4.3 [facility] Comment on above: Performed By: #### 6 935353, 0557372895, 63008481, 8457965684, 5302814, 0415298196, 1710282 ####[facility] [place] [address] 64250 Glucose [Mass/Vol] 111.0 mg/dL Normal 74.0-118.0 [facility] Comment on above: Performed By: #### 6 831978, 6287946582, 13213740, 2922181206, 4414529, 5825669171, 1915858 ####[facility] [place] [address] 76663 Osmolality 274 mOsm/L Invalid Interpretation Code [facility] Comment on above: Performed By: #### 6 529432, 3905014792, 09674151, 6056603158, 6063947, 2739200833, 0069937 ####[facility] [place] [address] 28510 Potassium [Moles/Vol] 3.6 mmol/L Normal 3.6-5.1 [facility] Comment on above: Performed By: #### 6 765167, 2140609025, 45501663, 2174322478, 3712304, 2110293398, 6909111 ####[facility] [place] [address] 07275 Protein [Mass/Vol] 7.2 g/dL Normal 6.5-8.1 [facility] Comment on above: Performed By: #### 6 592289, 3967257106, 58967920, 9775438895, 6816176, 7932670917, 2425132 ####[facility] [place] [address] 09294 Sodium [Moles/Vol] 135.0 mmol/L Low 136.0-144 . 0 [facility] Comment on above: Performed By: #### 6 235223, 9339865102, 57399844, 6384413053, 9419909, 2376197415, 5246518 ####[facility] [place] [address] 90570 Urea nitrogen [Mass/Vol] 21 mg/dL Normal 8-26 [facility] Comment on above: Performed By: #### 6 693184, 4020743768, 50734137, 6531307887, 9427633, 6862474192, 6328753 ####[facility] [place] [address] 65209 Urea nitrogen/Creatinine [Mass ratio] 26.5 mg/mg High 4.6-16.2 [facility] Comment on above: Performed By: #### 6 612320, 6512466603, 29066276, 5063084403, 7494425, 2089823093, 6532003 ####[facility] [place] [address] 49253 COVID/Flu/RSV (GeneXpert)on 05-30-2025 Flu A (GXpert COVFLURSV) Negative Normal Negative [facility] Comment on above: Performed By: #### 7 240805126, [id number] #### [facility] [address] [place] [address] 36824 Flu B (GXpert COVFLURSV) Negative Normal Negative [facility] Comment on above: Performed By: #### 7 277154492, [id number] #### [facility] [address] [place] [address] 92041 RSV (GXpert COVFLURSV) Negative Normal Negative [facility] Comment on above: Performed By: #### 7 160538246, 8576815010 #### [facility] [address] [place] [address] 53279 SARS-CoV-2 (COVID-19) RNA MARYLU+probe Ql (Unsp spec) Negative Normal Negative [facility] Comment on above: Result Comment: Perf ormed by PCR methodology. Performed By: #### 7 [id number], [id number] #### [facility] [address] [place] [address] Stroke Studyon 05-30-2025 CT Stroke Study EXAMINATION: CT Stro ke Study HISTORY: STROKE COMPARISON: None. TECHNIQUE: Axial noncontrast CT imaging of the head was performed with coronal and sagittal reformats. Dose reduction techniques were achieved by using automated exposure control and/or adjustment of mA and/or kV according to patient size and/or use of iterative reconstruction technique. FINDINGS: Calvarium/skull base: No evidence of acute fracture or destructive lesion. Paranasal sinuses: No air fluid levels. Brain: No acute intracranial hemorrhage. Acute/subacute infarct involving the left SHEET METAL PATTERN CUTTER distribution. There is associated loss of linder-white differentiation with mild local mass effect. Small area of remote infarct involving the left posterior inferior frontal lobe and adjacent white matter with encephalomalacia. Remote infarct involving the right inferior frontal gyrus and anterior most insula area Age-indeterminate but likely remote leather sorter infarct involving the left cerebellum. No mass lesion or mass effect. No hydrocephalus. IMPRESSION: 1. 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 No hemorrhagic transformation at this time. 2. 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 Notification of Results Provider/Agent notified: Dr. Velasquez Santizo Time/Date notified: 05/30/2025 11:53 AM MDT Notifying Staff: Dr. Lopez Final Dictated by: Ginger Lopez DO Dictated DT/TM: 05/30/25 1:50 Signed (Electronic Signature): Ginger Lopez DO 05/30/25 1:54 pm Technologist: DONNA SMITH [facility] ED Note-Nursingon 05-30-2025 ED Note-Nursing report number [phone] [facility] ED Note-[facility]urs[facility]. [facility] here care was transferred to EMS patient and vitals are stable [facility] ED Note-Nursing Patient's neuro stat us has improved. Patient is able to follow commands and form sentences more appropriately. Patient has been accepted to [facility] by the hospitalist and neurology. Transport is being arranged with EMS Family was [place] [facility] [place] [facility] [place], stating she requires a higher level of care. Family verbalized understanding. [facility] Extra Redon 05-30-2025 Tube Collected Yes Invalid Interpretation Code [facility] Comment on above: Performed By: #### 6 866618, 4332703032, 06925305, 6926650465, 3407064, 4587618984, 9076786 #### [facility] [address] [place] [address] 50579 Orders Onlyon 05-30-2025 Orders Only [id number] Michelle Alejandra misa E 1945 F Date Provider Department Center 05/30/2025 DEE MARIN [facility] Family History Problem Relation Age of Onset Aortic aneurysm Mother Stroke Maternal Grandmother Family Status - Relation Status Age at Mother Father Maternal Grandmother Normal [facility] POCT Glucose Levelon 025 Glucose [Mass/Vol] 110 mg/dL Normal 74-118 [facility] Comment on above: Result Comment: OPR_ ID=[email or web address],TGC FLAG = False Performed By: #### 4 [id number] ####[facility] [place] [address] 14603 PT/PTTon 05-30-2025 INR Coag (PPP) [Relative time] 0.97 {INR} Normal 0.91-1.11 [facility] Comment on above: Performed By: #### 6 [id number], [id number], [id number], [id number], [id number], [id number], [id number] ####[facility] [place] [address] 59899 PT 10.3 second(s) Normal 9.7-11.8 [facility] Comment on above: Performed By: #### 6 [id number], [id number], [id number], [id number], [id number], [id number], [id number] ####[facility] [place] [address] 08343 PTT 26 second(s) Normal 25-35 [facility] Comment on above: Performed By: #### 6 [id number], [id number], [id number], [id number], [id number], [id number], [id number] ####[facility] [place] [address] Telephoneon 05-30-2025 Telephone [phone] Michelle Alejandra cia 1945 F Date Provider Department Center 05/30/2025 [facility]GER [facility] Family History Problem Relation Age of Onset Aortic aneurysm Mother Stroke Maternal Grandmother Family Status - Relation Status Age at Mother Father Maternal Grandmother Normal [facility] HSon 05-30-2025 Troponin I High Sensitivity 1555.2 pg/mL Critically abnormal <=15.0 [facility] Comment on above: Order Comment: Draw @ 1501 Result Comment: Crit ical result TNIHS 1555.2 pg/mL called to and read back by Chantelle Navas at 30-May-2025 16:13 by ALEXIA. Performed By: #### 5 [id number] ####[facility] [place] [address] 16293 Troponin I High Sensitivity 1166.6 pg/mL Critically abnormal <=15.0 [facility] Comment on above: Result Comment: Crit ical result TNIHS 1166.6 pg/mL called to and read back by Lisa Barba at 30-May-2025 14:49 by ALEXIA. Performed By: #### 6 [id number], [id number], [id number], [id number], [id number], [id number], [id number] ####[facility] [place] [address] 10737 Transfer Noteon 05-30-2025 Transfer Note 1401 called briana dias [facility]- paged telestroke 1418 Dr. Martin called back and spoke with Dr. Santizo. requesting cardiology be paged 1520 neurology was consulted, Dr. Moralez 1607 Dr. Tafoya- cardiology called and spoke with Dr. Santizo 1621 pt was accepted at this time. neurologist, Dr. Morlaez and hospitalist, Dr. Jung 1640 bed assignment, [facility] bed top gun open [facility] called for transport with an eta of 20min 1657 arrived 1715 departed entire chart sent with pt. images sent through pacs machine [Electronically Signed on: 05/30/2025 17:21 EDT] Brisendine, Sherlyn P ER [facility] [Verified on: 05/30/2025 17:21 EDT] Brisendine, Sherlyn P ER [facility] Cler [facility] UA [id number] 05-30-2025 UA Bacteria Trace [facility] Comment on above: Order Comment: Urina lysis Microscopic order added on by [employer] Rules system. Performed By: #### 5 [id number], [id number] ####[facility] [place] [address] UA RBC 0-2 [facility] Comment on above: Order Comment: Urina lysis Microscopic order added on by [employer] Rules system. Performed By: #### 5 [id number], [id number] ####[facility] [place] [address] UA WBC None Seen [facility] Comment on above: Order Comment: Urina lysis Microscopic order added on by [employer] Rules system. Performed By: #### 5 [id number], [id number] ####[facility] [place] [address] UA w Culture if Ind Standard on 05-30-2025 Breakpoint UA [facility] Comment on above: Performed By: #### 5 [id number], [id number] ####[facility] [place] [address] Color (U) Straw [facility] Comment on above: Performed By: #### 5 [id number], [id number] ####[facility] [place] [address] Culture? Not Indicated Invalid Interpretation Code [facility] Comment on above: Result Comment: Resu lt created by rule GL_MAGR_ADD_UA_CULT Result created by rule GL_MAGR_ADD_UA_CULT Result created by rule GL_MAGR_ADD_UA_CULT1 Performed By: #### 5 [id number], [id number] ####[facility] [place] [address] Glucose (U) [Mass/Vol] Negative Normal [facility] Comment on above: Performed By: #### 5 [id number], [id number] ####[facility] [place] [address] Ketones Ql (U) TRACE Normal [facility] Comment on above: Performed By: #### 5 [id number], [id number] ####[facility] [place] [address] Micro? Indicated Invalid Interpretation Code [facility] Comment on above: Result Comment: Resu lt created by rule GL_MAGR_ADD_UA_MICRO Performed By: #### 5 [id number], [id number] ####[facility] [place] [address] UA Bilirubin Negative Normal [facility] Comment on above: Performed By: #### 5 [id number], [id number] ####[facility] [place] [address] 87068 UA Blood TRACE Abnormal NEGATIVE [facility] Comment on above: Performed By: #### 5 [id number], [id number] ####[facility] [place] [address] 61480 UA Clarity CLEAR Normal CLEAR [facility] Comment on above: Performed By: #### 5 [id number], [id number] ####[facility] [place] [address] 45324 UA Leuk Est Negative Normal NEGATIVE [facility] Comment on above: Performed By: #### 5 [id number], [id number] ####[facility] [place] [address] 99052 UA Nitrite Negative Normal NEGATIVE [facility] Comment on above: Performed By: #### 5 [id number], [id number] ####[facility] [place] [address] 00629 UA pH 7.0 Normal 5-8 [facility] Comment on above: Performed By: #### 5 [id number], [id number] ####[facility] [place] [address] 27814 UA Protein Negative Normal NEGATIVE [facility] Comment on above: Performed By: #### 5 [id number], [id number] ####[facility] [place] [address] 36128 UA Spec Grav 1.010 Normal 1.001-1.[address] [place] [address] Comment on above: Performed By: #### 5 [id number], [id number] ####[facility] [place] [address] 15113 UA Urobilinogen 0.2 mg/dL Normal 0.2-1.0 [facility] Comment on above: Performed By: #### 5 [id number], [id number] ####[facility] [place] [address] 27910 Urine Source Evans Catheter Normal [facility] Comment on above: Performed By: #### 5 [id number], [id number] ####[facility] [place] [address] 82205 XR Chest 1 View Frontalon XR Chest 1 View Frontal EXAM: XR Chest 1 View Frontal HISTORY: Mental Status Changes COMPARISON: Chest radiograph dated 03/01/2024. TECHNIQUE: AP erect portable chest radiograph performed. FINDINGS: The heart size is within normal limits. There is mild atheromatous calcification at the aortic arch. There is a cardiac loop recorder overlying the left chest. There is no consolidation, pleural effusion or pulmonary vascular congestion. There is no pneumothorax or acute osseous abnormality. IMPRESSION: There is no acute cardiopulmonary process. Final Dictated by: Wolfgang Bear MD Dictated DT/TM: 05/30/25 2:11 Signed (Electronic Signature): Wolfgang Bear MD 05/30/25 2:12 pm Technologist: Mary MORALES [facility] Orders Onlyon 05-27-2025 Orders Only [id number] Michelle Alejandra misa E 1945 F Date Provider Department Center 05/27/2025 [id number]-SJIGSONIA DONNELLYHEK HVC CARD [place] [facility] Family History Problem Relation Age of Onset Aortic aneurysm Mother Stroke Maternal Grandmother Family Status - Relation Status Age at Mother Father Maternal Grandmother [facility] Outside Recordson 05-13-2025 Outside Records [id number]#[id number] F [facility] Orders Onlyon 04-30-2025 Orders Only [id number] Michelle Alejandra misa E 1945 F Date Provider Department Center 04/30/2025 325-YADIRA STEPHENSON HVC CARD [place] [facility] Family History Problem Relation Age of Onset Aortic aneurysm Mother Stroke Maternal Grandmother Family Status - Relation Status Age at Mother Father Maternal Grandmother [facility] Orders Onlyon 04-26-2025 Orders Only [id number] Michelle Alejandra misa E 1945 F Date Provider Department Center 04/26/2025 166MISTY MILLAN [facility] Family History Problem Relation Age of Onset Aortic aneurysm Mother Stroke Maternal Grandmother Family Status - Relation Status Age at Mother Father Maternal Grandmother [facility] Prep for Procedureon 025 Prep for Procedure [id number] Michelle Alejandra misa E 1945 F Date Provider Department Center 03/30/2025 166-MISTY [place]. Family History Problem Relation Age of Onset Aortic aneurysm Mother Stroke Maternal Grandmother Family Status - Relation Status Age at Mother Father Maternal Grandmother [facility] Reminder Messageson 03-08-20 Reminder Messages - From: Hannah Gruber MD To: Yasmani Elise Vernon ([facility]); Sent: 03/02/2025 08:25:23 EDT ! Show up: 03/02/2025 08:25:23 EDT Subject: Results Follow Up Actions: Call the patient with result(s) Due Date/Time: 03/03/2025 08:23:00 EDT Reminder Comments: Labs look good except hemoglobin has dropped which could suggest she has having some bleeding with the Eliquis. See if agreeable to referral for EGD/colonoscopy to look for any possible sources. KL[facility] Results: Date Result Name Ind Value Ref Range 02/24/2025 9:10 Sodium Level 138.0 mmol/L (136.0 - 144.0) 02/24/2025 9:10 Potassium Level 3.9 mmol/L (3.6 - 5.1) 02/24/2025 9:10 Chloride Level 101 mmol/L (101 - 111) 02/24/2025 9:10 CO2 28 mmol/L (21 - 32) 02/24/2025 9:10 Anion Gap 12.9 mmol/L (5.0 - 19.0) 02/24/2025 9:10 Glucose Level 96.0 mg/dL (74.0 - 118.0) 02/24/2025 9:10 BUN 20 mg/dL (8 - 26) 02/24/2025 9:10 Creatinine Level 0.80 mg/dL (0.60 - 1.30) 02/24/2025 9:10 BUN/Creat Ratio (H) 25.0 (4.6 - 16.2) 02/24/2025 9:10 eGFR AA >60 mL/min/1.73m2 02/24/2025 9:10 eGFR Non AA >60 mL/min/1.73m2 02/24/2025 9:10 Calcium Level 9.1 mg/dL (8.9 - 10.3) 02/24/2025 9:10 Magnesium 1.99 mg/dL (1.80 - 2.50) 02/24/2025 9:10 Bili Total 0.6 mg/dL (0.3 - 1.2) 02/24/2025 9:10 Alk Phos 62 IU/L (32 - 91) 02/24/2025 9:10 AST/SGOT 18 IU/L (15 - 41) 02/24/2025 9:10 ALT/SGPT 14.0 IU/L (14.0 - 54.0) 02/24/2025 9:10 Protein Total 7.2 gm/dL (6.5 - 8.1) 02/24/2025 9:10 Albumin Level 3.7 gm/dL (3.5 - 5.0) 02/24/2025 9:10 Globulin 3.5 gm/dL (1.5 - 4.3) 02/24/2025 9:10 A/G Ratio (L) 1.0 (1.4 - 2.6) 02/24/2025 9:10 Osmolality 278 mOsm/L 02/24/2025 9:10 Cholesterol 173.0 mg/dL (66.0 - 200.0) 02/24/2025 9:10 HDL (H) 98 mg/dL (40 - 71) 02/24/2025 9:10 Chol/HDL Ratio 1.7 (0.0 - 4.5) 02/24/2025 9:10 LDL 54 mg/dL (1 - 100) 02/24/2025 9:10 Trig 107.0 mg/dL (0.0 - 150.0) 02/24/2025 9:10 VLDL. 21 mg/dL (5 - 40) 02/24/2025 9:10 WBC 6.3 x103/mcL (3.5 - 10.5) 02/24/2025 9:10 RBC 4.06 x106/mcL (3.70 - 5.30) 02/24/2025 9:10 Hgb (L) 10.0 gm/dL (11.3 - 15.9) 02/24/2025 9:10 Hct (L) 31.5 % (33.7 - 40.4) 02/24/2025 9:10 MCV (L) 78 fL (81 - 100) 02/24/2025 9:10 MCH 25 pg (24 - 34) 02/24/2025 9:10 MCHC 32 gm/dL (26 - 37) 02/24/2025 9:10 RDW (H) 16.1 % (11.5 - 15.0) 02/24/2025 9:10 Platelet 290 x103/mcL (138 - 427) 02/24/2025 9:10 MPV 8.1 fL (6.3 - 10.2) 02/24/2025 9:10 Auto Neut % 66 % (44 - 88) 02/24/2025 9:10 Auto Lymph % 18 % (14 - 48) 02/24/2025 9:10 Auto Bowie % 8 % (1 - 12) 02/24/2025 9:10 Auto Eos % (H) 7.0 % (0.9 - 4.0) 02/24/2025 9:10 Auto Baso % 0.9 % (0.2 - 2.0) 02/24/2025 9:10 Neut Abs# 4.2 x103/mcL (1.5 - 9.2) 02/24/2025 9:10 Lymph Abs# (L) 1.2 x103/mcL (1.3 - 2.9) 02/24/2025 9:10 Bowie Abs# 0.5 x103/mcL (0.0 - 0.8) 02/24/2025 9:10 Eos Abs# 0.4 x103/mcL (0.0 - 0.4) 02/24/2025 9:10 Baso Abs# 0.1 x103/mcL (0.0 - 0.2) phone busy phone rings busy phone rings busy left message on alternate phone to call office back still have not heard from patient at this time [facility] Outside Recordson 03-02-2025 Outside Records [id number]#1.00OTGTI FF [facility] Coding Summaryon 03-01-2025 Coding Summary HTMLBase 64 BokbqpnrAIw8gAe+PGhlYWQ+P Y2SNRIkK71lbTFuhT0kT0CJIX lOSywgQVBQTElOSyIgbmFtZT1 kaXNjZXJu IC8+UI6mDCGgFhlunWPpm3C4f MF5W63zcp9nPUeygHI4IUIaHu Pyhpiww2wuhUo3UJvxCwjmHiI t JWAyhV71LQP0lH43Sv22kJOyp WKhh3tgvTk4KfViJVNpOGE6oC hgNSngc8OtCALfH61jjCZsx8X 6 POXfhGzxpLFbCpTwbRD2cQ5aD Multwpwz2mdhmoiZud8yh67iT Fow9Q3jBX2Y5FgbgU2TIJuzNC g FtxxsFWZzY0cnkenn1opanmnR hKhERGjRGw3FQk8MUTutVzsAq ZcMK65SHM5KJZukoIaX9DyXVN s yTjdOrE3g3M3Su0TU6WFLaleE 1VNTUFSWTwvdGQ+ZQ95su04U1 HdSndrDwa3CZAiTDG2uSU3oQ6 n FOQmELply0B8xJY4L2SxljKms f5qo9cfZPEoQXofY44ksPMpm3 D5BGVlnJV5RGPpnVhjXwSszF0 3 Oyc+QGDgcBlfp6QoZkasa8rls 6nnhYa7OteyDWZytpRabOsdEZ A9r4KcKa5fUMOmfZP1iNR3gO6 i GvEsBtP0ANfnM269WoUhfTOiG smyN13mA1LkpKT+IUQkRev5KS HfwSloKP6nJ0VrCWVaeeknqZH m lWwsXW3sTLJbvtyjICFomS7zV WYhA9c1VvExDcQ7FWceO6OgOJ SyqzgwKf53sI7sZkMsHlT8KQq u P3AjcmO3UWWnlRIgWUctDYR1V 31hx0J1OLFwDEPvRZY3nFD4hS 1hbGlnbjogbGVmdDsgdmVydGl j OCzmBDmxA622BYMdgPdgDoTzE GluZyBEYXRlOiAgMDYvMTAvMj AyNTwvdGQ+JMGrXXX8zYcpKTP n tFWvQOlgOl0lvIwanOqhAI2dC PLtznutUGPdvH0pQEFhcAQawR noQW7bXMBsutstt561YuJhRWA 0 GZJfkLSaZ8YpyZ3oUlHmYMPrL DQpT0AyrFIdHQpwJ727ZCdzZl Y5JGMkawPuC5StRMJzlBalIbZ 0 t0T2Cg5Rc0OdbpliE2CflNKeQ zQlLiofCUg6K7NzYghueJO+PC 56VRRiVX44GKp3XJA5wMgvYOd i JFHyS6GozB9eKrMsOFTwYVKlG yc+PHRhYmxlIHdpZHRoPScxMD BgShVdeXjxBJ7zMi1fGWLtHVV v lSfaiXExNhGls3eySAXvEEguX S8hiThkT5XbiOY8ABEcw8x0Xf 43C17dS8CceSL+YWFiyNS7hOZ 0 hP1gQoBtUfO8WIuoW953NaQru ZZpMzbdd7hsh0ilcDx5IaZ8FM HtjjDrfZedTFX1h9QsUw95N64 s IHdpZHRoPSIxNSUiIHZhbGlnb j8yhP5bCn9+TQNbmVO4oRQ3vY 1bJvLsZrB2SXryG120DaZvyUC v Jmloa3qam0vktQu6ExNqPMZjj vXedBsqCER7l0KxOx97H9GapX nof2KqKml1ll24mVQre9C3kWJ 9 E2PcPBLgwpidjDMpuVevSU3mV LMacguwHUBmqP2iNXWgE9s5Ie SdFsH9BQipJ2ZzwtK6HOKbgPE g LQFtdXDCiY7ksoxxz0bhkmrwV uVhMPOuLFs5VBm9TWZslRzaJd QfTIM6IaP3DVO0iSSpdW6fzVi n aaigfE2gOte+ABE1yYNqhKGQU E4xErvaaNO+MPSyJKE6jObnRR txBAYrlL9vAJMpL0j5BsVmWoU 1 LHjkK6AlroB4SWJzlZWlFDZkh UKCzJ3frnkyz5dkhcclBnBnEJ PtDQv1YOz3WYPhwYfsDlNnCEA 0 LkI6CUB8rCKlfE0cqAtzzcemq G9wOyc+NmqfsLolNAR4QZr2K7 NmTro5CYNrdUcmQJ8uhEAhHQu u Qt9keGpjwWmwFX1kZEDualkyb 056WgKsn6egVFUrbTJeOPdeWF B1J79tq3Y2NOAeLRZrMRG2nPC 4 zH1zvAprnpijoHXzqDqcwdCau UryLDytPLlyX119IIXlwOfaCe ViWDz3D6QbPys1MIYiaRcuMX3 n sRJbXZxtNv6ntUtkuNalBM0kN EGuednxx741OzCyn3zbPHIwoZ XdSGcgDMH1B15sc8E6TFTdWOM w FWD0yIW8nF9xnQkjbmefuHFql NolpzDlhHumBUdjJEqeO541PQ GafYnbSaQtzOg7J0FiAgl8RLD z xEvtHQ6cbCNqHLafWt5vyFrtd EgdUC3xPSWuywfro881UoOsg0 axGRSioTVkDJnbVVZ8T60rk9R 6 TIKkXHWuMNM2xOS0lH2kyUpas jogbGVmdDsgdmVydGljYWwtYW otO662LKZvqZaoHeEhbYxabsC g GQfvPYi6H0FrEoqnjGX+PC90Y RHgIG73lFVdgCLrs1wtxJy3Cz WtYBDaRTC2pMozANldy7KgRYX t T25lpDRrl5K3NBPazRhkwLAxN tHkpLZ5zW2pZQoylnjpb8bllr pjVjziw4yffd11rN00D23oHOa p YIAoLHKdBRBnHWNbiLtooe1zf G9wIi8+MFXzeKX8yBU9pI1nOD CgKdQ2VMpvA090YkWweJXnOcd j c1gop3biwIn4RwW0YAZzyqYll HktBZS1r5MdOv33L51gGUxnLO UaZWFbCALiPGNbmXbgig8auN1 w Ii8+ZGLgiHG1xAH1gT0rKkXjT kL3GEzuB178UzAjtJRwVvfnR1 4rR7JioCY+XGMzNwg1XBVldYx s RJ8gxLEuXKtxOn9nJZN4HkMaS yTfVRtfL2AdUOEhfnbifmebkT C6GCJjULHztQ10Xk7ckZgnBHU w kWKSmR8mtfqpr5jrouseHhWrN NAvAUx8ECi0JLQqgMdeWhDnWL U5ZtM0RBA9tCIsiO5bbObloqk g aO2oY1QeDRFfprjmVc83pL6pF pDyAeW2TPvbMei+Z2HBCPVLSX FQWQVAPMJvIDoBOA7LRB43LK4 8 oVCnd6T5oQG1G8AnRWJfhdpld jamzSO4DKZtLZTdrX45yMNuYZ ejHg9qa9G8s336JZTnQAGqzB5 7 Pn8jlXsjMNAbiPPSnB0parlff 0xnqkldCcTyKGKaRBj5VOv3NY TmzWolQmWnJTW8JsF7NTY1eTB h cV8ulGyredhqjO6lOvv+MDUvM adjLAm6FHwfsJG+ELNvXEZ7rT wzICcvFVPqrE5cRUMsY9e0VtP w LwJ2RUdkP7GeZFOcvzpeYk39r V1uEaBlOnK8BXqkO3SgopV8HW AadJGzKVfeRWN4Q45ju7G9GTX w RGCxZPR2cXI0zD0raNfadgtcy GVmdDsgdmVydGljYWwtYWxpZ2 80PRWhmYgbYqvdESrzLANtSA0 0 QS74yNNrn4N5mQR0V9BqORCnq fesyyugdPF9WFRkKLIhbP70iQ GaDKgdNa1pr9Q1r592RNPdDMI w aL51Vn3btFlyWFUrsBZKlF4ap iaui9kdxjvzScJpSBVmWLq2MK m7HRRwtTibNbZsDMD7KuV8PSJ 0 wPVcuJ8qoQwwvmaeyM1vByv+R zGZFMuRET79UY14zFIlz9L1sX P5M0OnDNBvxkwacbppqFT0TDI u ZOVszG16cCWxEChrFz7kg7U0q 837OHTwAGVjcP61Ik9qqLhtAK ArqCWHhX2smcwpu7ncplrrLnI w KJNiPHh6DLi0QZVpeNnvFbYcN KY2JvH4ZBD1xBQviO3qoQjgad cfeT2bRnu+R8D6M4JrSklrrHF + MQ28TENeQZ56zVXzrWCjz4flr Sz7ThVfUYZcFGK3kNjhWRjtq7 LtOMDlC02anPVlk9E8PVJvpCj h iPQzDzLuqWC5pF2lFQzledunw 5dlrtcvUqsdg9ethv09uT72O9 9sIHdpZHRoPSIzMCUiIHZhbGl n eu0ohO8fDo2+MFMjcYW3aXO4c E1vDpOrEfS6PKshP145LsYakG SmIbcme5bhu4jupOt0LeBdYRH g cjNzsAnhAEH2u2UsEa14G17mF HdpZHRoPSIyMCUiIHZhbGlnbj 5xkH6ePf5+GI1ri3kghl96aU1 8 dHI+SSXiENR9eQhvYUafTDDyx O7dMIrkYtU3KLIkVuMpgI03dX JfWVxoSm0thJxlsImqOV5iDBC p peffj271ZgVwa5bxWMFmzQVfJ NpfLTH5T10bc1J3OVQqNNZdTD D5dCX0yF9dlIufgvlsxSHpiMb g meEcpHgxPEhsDUpgD602FOEvl KelHsNzjHHvR6icekNHGS2pBf wvdGQ+RJGgGCZ0jJmiBPzaMVQ k mZ6xTPYtI6k1DyMgBtX5WQhiK 6NebxF8KLArkRDtSSPcyAYXfD 3yupvmm8larxlnUoVzRVTcLLq 0 NVu8KWBpcSdqDiHpSZW1VhH4B MT7yEOejJ9bxDtwbdlvmY4tCk c+RklOOjwvdGQ+PGPvYLK4jRe l USjcCRTnkF9zXRZvL7d8NhVrD cK4OQmkF0ErouK8ESSsbXJvWG BxeYBOjG4goxuwr5bvdlghFdX w UKXdSJh3RHc2FNZxhXvvSdToA JX1ElT7VZY3rMGaxQ5ccCbrcy spiP7bRwt+TVJOOjwvdGQ+PHR k GHH6aJckOYdbTCLwgM5aIIWjE 1z2LmKzSwI4MQkrA2XscbU1YE EftEYkUYReaWVVjZ7sxobwj4h v rmhxIwGcFIYmBUo4GJo4AJNpq ImhQuBdQJG3VzB3OEQ6xKQvgE 6xbRamzkbhcB7bHdg+DNE5DIE 6 LD38WG68H4RbAtlyvXMdzOL+P HRhYmxlIHdpZHRoPScxMDAlJy FbvVfjHQ8sOi7rOHVkGGOwiMx h cHN (more content not included)... Normal [facility] CTA CHEST W IV CONTRASTon CTA CHEST W IV CONTRAST CTA CHEST W IV CONTRAST 02/28/2025 11:55 AM CLINICAL INDICATIONS: Left atrial appendage occlusive device placement evaluation. Atrial fibrillation. PROTOCOL: Gated chest CTA CONTRAST: 100 mL Omnipaque 350 TECHNIQUE: Multidetector CT axial slices of the chest were obtained with IV contrast. Multiplanar reformats were performed and viewed on a separate workstation and reviewed to further define anatomy and possible pathology. All CT scans at this facility use dose modulation, iterative reconstruction, and/or weight based dosing when appropriate to reduce radiation dose to as low as reasonably achievable. COMPARISON: None. FINDINGS: Lower neck: Not included in the current evaluation. Vessels: Visualized pulmonary arteries are Within normal limits. Mild atherosclerotic changes in the aorta. and coronary arteries. Mediastinum and Noemy: Within normal limits. Heart: Normal size. No pericardial effusion. Mitral valve annular calcification. Airways: Within normal limits Lungs: Within normal limits. Pleura: Within normal limits. Chest Wall: Within normal limits. Upper Abdomen: Moderate sized hiatal hernia. Bones: Bony spurring in the lower thoracic spine suggesting mild spondylosis. 3-D volume rendered images of the left atrium, draining pulmonary veins and left atrial appendage are obtained and saved in various projections. The left atrium is normal in size and configuration with measurements of 6.5 x 4.4 cm. Left atrial appendage ostium is 1.9 cm in diameter and the appendage is approximately 4.7 cm in length with no filling defects appreciated. The left superior pulmonary vein diameter is 1.5 cm in the ostium and first branch is approximately 2.8 cm from the ostium. The left inferior pulmonary vein ostium is 1.6 cm in diameter and first branch is approximately 1.8 cm from the ostium. The right superior pulmonary vein diameter is 1.7 cm and first branch is approximately 2 cm from the ostium and the right inferior pulmonary vein diameter is 1.6 cm and first branch is approximately 2.2 cm from the ostium IMPRESSION: Moderate-sized hiatal hernia is visualized. Normal left atrial size and configuration with no filling defects seen in the left atrial appendage with the measurements listed above. 3-D volume rendered images are obtained in various projections. Mitral valve annular calcification. Thoracic spondylosis. No other acute abnormality in visualized part of the chest. Electronically signed: Lupe Rascon MD. Not Vldtd Invalid Interpretation Code [facility] Comment on above: Order Comment: Pre-L AAO device - venous & gaited with 3D reconstrution to assess left atrial appendage Orders Onlyon 02-25-2025 Orders Only [id number] Michelle Alejandra misa E 1945 F Date Provider Department Center 02/25/2025 YADIRA DANIEL [facility] Family History Problem Relation Age of Onset Aortic aneurysm Mother Stroke Maternal Grandmother Family Status - Relation Status Age at Mother Father Maternal Grandmother Normal [facility] .Auto Diff 102-24-2025 Auto [place] % 8 % Normal 1-12 [facility] Comment on above: Performed By: #### 1 [id number], [id number], [id number], [id number], [id number] ####[facility] [place] [address]206 Baso Abs# 0.1 x10 Normal 0.0-0.2 [facility] Comment on above: Performed By: #### 1 [id number], [id number], 8990659, 0623256, [id number] ####[facility] [place] [address] 26011 Basophils/100 WBC (Bld) 0.9 % Normal 0.2-2.0 [facility] Comment on above: Performed By: #### 1 [id number], [id number], 0306553, 4439279, [id number] ####[facility] [place] [address] 24592 Eos Abs# 0.4 x10 Normal 0.0-0.4 [facility] Comment on above: Performed By: #### 1 [id number], [id number], 3668336, 7992734, 85076220 ####[facility] [place] [address] 19464 Eosinophils/100 WBC (Bld) 7.0 % High 0.9-4.0 [facility] Comment on above: Performed By: #### 1 [id number], [id number], 9126454, 6630841, [id number] ####[facility] [place] [address] 55710 Lymph Abs# 1.2 x10 Low 1.3-2.9 [facility] Comment on above: Performed By: #### 1 [id number], [id number], 3370860, 5967404, 67437376 ####[facility] [place] [address] Lymphocytes/100 WBC (Bld) 18 % Normal 14-48 [facility] Comment on above: Performed By: #### 1 [id number], [id number], 7587065, 1302956, 32136610 ####[facility] [place] [address] Bowie Abs# 0.5 x10 Normal 0.0-0.8 [facility] Comment on above: Performed By: #### 1 [id number], [id number], 6439340, 5112193, 98330707 ####[facility] [place] [address] Neut Abs# 4.2 x10 Normal 1.5-9.2 [facility] Comment on above: Performed By: #### 1 [id number], [id number], 2612075, 5419047, 14599282 ####[facility] [place] [address] Neutrophils/100 WBC (Bld) 66 % Normal 44-88 [facility] Comment on above: Performed By: #### 1 [id number], [id number], 6455361, 1505609, [id number] ####[facility] [place] [address] CBC w/ Auto Diffon 5 Erythrocyte distribution width (RBC) [Ratio] 16.1 % High 11.5-15.0 [facility] Comment on above: Performed By: #### 1 [id number], [id number], 6777508, 7498931, 96317976 ####[facility] [place] [address] Hematocrit (Bld) [Volume fraction] 31.5 % Low 33.7-40.4 [facility] Comment on above: Performed By: #### 1 [id number], 0758872154, 3115990, 9387770, 46432418 ####[facility] [place] [address] Hemoglobin (Bld) [Mass/Vol] 10.0 g/dL Low 11.3-15.9 [facility] Comment on above: Performed By: #### 1 [id number], [id number], 4636604, 0145093, 74896902 ####[facility] [place] [address] Man Diff? Auto Invalid Interpretation Code [facility] Comment on above: Performed By: #### 1 [id number], [id number], 6600375, 0904431, [id number] ####[facility] [place] [address] MCH (RBC) [Entitic mass] 25 pg Normal 24-34 [facility] Comment on above: Performed By: #### 1 [id number], 1133425201, 3006157, 8519105, 08641376 ####[facility] [place] [address] 63490 MCHC (RBC) [Mass/Vol] 32 g/dL Normal 26-37 [facility] Comment on above: Performed By: #### 1 [id number], [id number], 3889145, 3636293, 75495069 ####[facility] [place] [address] 26779 MCV (RBC) [Entitic vol] 78 fL Low 81-100 [facility] Comment on above: Performed By: #### 1 [id number], [id number], 6988124, 9310845, [id number] ####[facility] [place] [address] Platelet 290 x10 Normal 138-427 [facility] Comment on above: Performed By: #### 1 [id number], 9774591883, 0125473, 4793951, [id number] ####[facility] [place] [address] Platelet mean volume (Bld) [Entitic vol] 8.1 fL Normal 6.3-10.2 [facility] Comment on above: Performed By: #### 1 [id number], [id number], 8124474, 8112423, 79859649 ####[facility] [place] [address] RBC 4.06 x10 Normal 3.70-5.30 [facility] Comment on above: Performed By: #### 1 [id number], 7483080187, 1476564, 5118010, 30800261 ####[facility] [place] [address] WBC 6.3 x10 Normal 3.5-10.5 [facility] Comment on above: Performed By: #### 1 [id number], [id number], 4944081, 7111282, 48663759 ####[facility] [place] [address] CMP Standardon 02-24-2025 eGFR Non AA >60 Invalid Interpretation Code [facility] Comment on above: Performed By: #### 1 [id number], [id number], 1335521, 4434502, 53927763 ####[facility] [place] [address] eGFR AA >60 Invalid Interpretation Code [facility] Comment on above: Performed By: #### 1 [id number], 0654104922, 3575764, 9846786, 53291268 ####[facility] [place] [address] Albumin [Mass/Vol] 3.7 g/dL Normal 3.5-5.0 [facility] Comment on above: Performed By: #### 1 [id number], [id number], 9179687, 9572006, 25849482 ####[facility] [place] [address] Albumin/Globulin [Mass ratio] 1.0 {ratio} Low 1.4-2.6 [facility] Comment on above: Performed By: #### 1 [id number], 5860724852, 7701673, 2896367, 03837064 ####[facility] [place] [address] 85573 Alk Phos 62 IU/L Normal 32-91 [facility] Comment on above: Performed By: #### 1 [id number], 9488140157, 4201542, 6851170, 89678408 ####[facility] [place] [address] 65046 ALT [Catalytic activity/Vol] 14.0 U/L Normal 14.0-54.0 [facility] Comment on above: Performed By: #### 1 [id number], 7254719075, 8510594, 0565700, 52158234 ####[facility] [place] [address] 62686 Anion gap [Moles/Vol] 12.9 mmol/L Normal 5.0-19.0 [facility] Comment on above: Performed By: #### 1 [id number], 3625486467, 3798058, 6344163, 94601781 ####[facility] [place] [address] 23670 AST [Catalytic activity/Vol] 18 U/L Normal 15-41 [facility] Comment on above: Performed By: #### 1 [id number], 3424214882, 1540024, 7875720, 17166322 ####[facility] [place] [address] 20645 Bili Total 0.6 mg/dL Normal 0.3-1.2 [facility] Comment on above: Performed By: #### 1 [id number], 1565557069, 4553866, 8466403, 96196946 ####[facility] [place] [address] 05382 Calcium [Mass/Vol] 9.1 mg/dL Normal 8.9-10.3 [facility] Comment on above: Performed By: #### 1 [id number], 2313827240, 4687740, 8841195, 73638723 ####[facility] [place] [address] 90122 Chloride [Moles/Vol] 101 mmol/L Normal 101-111 [facility] Comment on above: Performed By: #### 1 [id number], 0909023965, 1114291, 2245093, 88765949 ####[facility] [place] [address] 13861 CO2 [Moles/Vol] 28 mmol/L Normal 21-32 [facility] Comment on above: Performed By: #### 1 [id number], 6968194447, 8255707, 2282615, 50756190 ####[facility] [place] [address] 36260 Creatinine [Mass/Vol] 0.80 mg/dL Normal 0.60-1.30 [facility] Comment on above: Performed By: #### 1 [id number], 1633263391, 7532717, 4208784, 50945910 ####[facility] [place] [address] 84401 Globulin (S) [Mass/Vol] 3.5 g/dL Normal 1.5-4.3 [facility] Comment on above: Performed By: #### 1 [id number], 6469889975, 3092314, 7982144, 38855837 ####[facility] [place] [address] 45167 Glucose [Mass/Vol] 96.0 mg/dL Normal 74.0-118.0 [facility] Comment on above: Performed By: #### 1 [id number], 6638591102, 4168675, 7506749, 87757101 ####[facility] [place] [address] 10321 Osmolality 278 mOsm/L Invalid Interpretation Code [facility] Comment on above: Performed By: #### 1 [id number], 1324764766, 4964224, 7559928, 36053341 ####[facility] [place] [address] 41908 Potassium [Moles/Vol] 3.9 mmol/L Normal 3.6-5.1 [facility] Comment on above: Performed By: #### 1 [id number], 4115986115, 9801440, 1694560, 54903492 ####[facility] [place] [address] 89155 Protein [Mass/Vol] 7.2 g/dL Normal 6.5-8.1 [facility] Comment on above: Performed By: #### 1 [id number], 3188273681, 8585948, 0805681, 96941936 ####[facility] [place] [address] 05761 Sodium [Moles/Vol] 138.0 mmol/L Normal 136.0-144 . 0 [facility] Comment on above: Performed By: #### 1 [id number], 8405328450, 6444015, 7323720, 53432078 ####[facility] [place] [address] 18728 Urea nitrogen [Mass/Vol] 20 mg/dL Normal 8-26 [facility] Comment on above: Performed By: #### 1 [id number], 9291512697, 6476016, 3115471, 53696932 ####[facility] [place] [address] 70834 Urea nitrogen/Creatinine [Mass ratio] 25.0 mg/mg High 4.6-16.2 [facility] Comment on above: Performed By: #### 1 [id number], 8556648168, 1105489, 0033305, 52131361 ####[facility] [place] [address] 35030 Lipid Panel Standardon 02-24 Cholesterol [Mass/Vol] 173.0 mg/dL Normal 66.0-200.0 [facility] Comment on above: Performed By: #### 1 [id number], 5281678191, 0432413, 0344626, 49847249 ####[facility] [place] [address] 81203 Cholesterol in HDL [Mass/Vol] 98 mg/dL High 40-71 [facility] Comment on above: Performed By: #### 1 [id number], 0820599634, 9637353, 7092017, 31121138 ####[facility] [place] [address] 50782 Cholesterol in LDL [Mass/Vol] 54 mg/dL Normal 1-100 [facility] Comment on above: Performed By: #### 1 [id number], 0166298358, 2895934, 5959857, 59339617 ####[facility] [place] [address] 38568 Cholesterol.total/Chol esterol in HDL [Mass ratio] 1.7 {ratio} Normal 0.0-4.5 [facility] Comment on above: Performed By: #### 1 [id number], 1536279663, 3501945, 2578132, 41948674 ####[facility] [place] [address] 67381 Triglyceride [Mass/Vol] 107.0 mg/dL Normal 0.0-150.0 [facility] Comment on above: Performed By: #### 1 [id number], 4772106511, 9676849, 1288015, 29053276 ####[facility] [place] [address] 37077 VLDL. 21 mg/dL Normal 5-40 [facility] Comment on above: Performed By: #### 1 [id number], 1774655495, 5032563, 2896906, 59651103 ####[facility] [place] [address] 49281 Magnesiumon 02-24-2025 Magnesium [Mass/Vol] 1.99 mg/dL Normal 1.80-2.50 [facility] Comment on above: Performed By: #### 1 [id number], 8263786060, 7989391, 9678878, 45491456 ####[facility] [place] [address] 23742 Orders Onlyon 02-09-2025 Orders Only [id number] Michelle Alejandra cia 1945 F Date Provider Department Center 02/09/2025 MISTY BRISENO [facility]. Family History Problem Relation Age of Onset Aortic aneurysm Mother Stroke Maternal Grandmother Family Status - Relation Status Age at Mother Father Maternal Grandmother Normal [facility] Coding Summaryon 02-07-2025 Coding Summary HTMLBase 64 IyaxbamrMXo6nXc+PGhlYWQ+P J7VCDNmD98sfWMfwF7bB0AAQJ lOSywgQVBQTElOSyIgbmFtZT1 kaXNjZXJu IC8+VT2eLXBaIcaveRKnh7R6y FO7D36sdz6rUIpdiPJ0WBPcWf Mbtezgf2pnzBv9UCoeVqwkLqT t SPCmyD81JJD8kP66Th12gDSzz EZhe9gakRw6JpIaIUZfNDT1rF frCJbgr1JuTBWiL52hrSJws3A 6 XVVrsKexrTHlGnVonKJ8eC9yD Oubyphbz7ftjqqrZen3ij84qY Rew9N9cYB6G8UtbrZ2XQAgvBO g PjzvlFNCiM2oxijkd7mrrmbvT lFpLYMxQIc0MQr3UZRszTcoPw VoNB74DFM3UBVndfMhA3SlUPA s cTtqOaW8k9V6Hk0LB3UIVusuY 1VNTUFSWTwvdGQ+QQ15sd94W5 RzLethMuh2ABOqXSI6bTF1yQ7 n EWStFXhuj1R7zHY2G2FhhaFli e4vw2chHDGdJHktO06epSBtc0 J1KUDttQZ8CXVydEdyTlOeyL1 3 Oyc+TIWstBjbv3AmYusud8ovj 8vhoUr3BbglREJgaeKviJbmQF J0u1GtMx0rDSDwjCK9rFU1qD2 i WzHxFmS3JFejL507AqTftUHuI dabK61dI0DlcNT+ZNKpXam4YI LqkKbbGA1fT1VsJCNsjjwdbVS m gMpjFZ7fZFWowavjRSNwmQ4fK WVrW4x8UqNtVkV5UEsdN7TtLX ErjxkyXv04dZ7kIrLwQnI1TOh u Z5UdbvV0GCOkiYCyJJgrVOY4L 50zd3F9TGCqDKSzDRR1bTM3oL 1hbGlnbjogbGVmdDsgdmVydGl j HZeeJVhiN854RYLbyOvdHrGyF GluZyBEYXRlOiAgMDUvMTkvMj AyNTwvdGQ+NCIlAMV7bPtbSWF n nGNgFQllPk4qmCykcHfiWO6oP UOdaeawGZVjnQ1tTSBmaHVbtN jtMM6uLFYrqvvem603XdJkFVW 0 FVIqxRHdD1FthP0sKoPkAOWuW REnC0PbhAFqJHllW019YOcuHp V2ANSsvyJjP3JyHFVlcMpnTvO 0 e7I8Iq8On6UwxsjoN6RmuDSmC rIfUnumVOc8L7HsFbqqcYV+PC 24CUOgMO46SCe0USE7oJsoSOm i NAJkH9VftD2wBnXyWYSkDEVaH yc+PHRhYmxlIHdpZHRoPScxMD HxVfTcxQrhDN5yYd5iDOEgAIJ v vIqtrGHjGlJrq5wlVJDiDBxxC G2byTksO2MpsXG4AWOvt0s1Sd 60Y12eC2RcgLN+YTAonYL2yEQ 0 jX5rIcItEfK8QKksS184PtUrh XCiEdpqw1xle7ghiAs2NzT4KS XgdkEunTxzTXW1w2HcFf77K56 s IHdpZHRoPSIxNSUiIHZhbGlnb q6ozL3gDy8+BBKdbPK9iMQ4xA 5uAuHuUpI8XKuuI809FaEiyDR v Qkilc2fcw2yiiZz0FdUhENJqa dCroHvxUDE6a9GqNf55Q4MyzZ jzs1ClLyv8sn51yNKox2F0oLX 9 I8RiWCWmyeginURmiCzeMI6bO KVwtjysUKTnyZ3oRKQvI6g1Wr XuPfY9JEbdT5QubhC9JWMkcLX g IFPlbWBLeG4fclldl3izoyjtO sLePCCiVHc2OCf9ZWXhpWefJw LtDOD3SrA0HWM4uGGtpX0puBn n iazquX8uFzg+CTB6nNVpgOHMQ Q9oQmilsHL+OANuBHN2iAmlIY tsOOEuwF4jJURbT7o9FqNaGxD 1 YMlaZ7EhlvI1TYXwgCSdHKIjs JMXoP0zswgup9glvfkyHoPhCG EfNUs3YGv7GHZyqXmmTmLvLRG 0 VtJ1UXO5uAHwqB8njSqlicslw G9wOyc+QyeivGymPJU4ORm8R7 VvKqg7VODejIeiLT2duUAwLMi u Er6ujVisdYlhYT9pYYKlgzjty 887EtMoj1mxNEDjqFEhNQuaFP T3N08nu4B8SWUuTAPgECM9sWQ 4 hO8wfLzyonkshUKzqXmcvkIop HprYBqqZVmfK050GYFsgSqmIn QzVHn2J1HwWzi5USHnmNqcGJ6 n oECzKCbjFo1tnJgqcIsxCA2kZ PEjewexb830TfWnq5ezWKDrlT WkYAfiLPD0D19iz9Q1IOPqQGP w SVN0jJD5qI2poTafmcgusXJsp UqkrfAwiMcvNFnsWAoqL294WI MayObqIrBggSj5P9KsOli7MOR z sFosGJ4vmECbUGhhYr5bgHbfp ClxMK0tRQIuvwtsk035TwFek3 lmLCOmrEYeDQtxTKR4O26ms8O 6 LOGzLXVdZEF0eSP5mE4lkCtxm jogbGVmdDsgdmVydGljYWwtYW liG019ATBbqPeaIiDsvBffrqA g ELswHFt2X8XjBlfxiOS+PC90Y EVvVA70dZZxkWRil3cmeIm3To CaBVQoHZE3fYcjORpfn5KpARW t V15xbPJvf4N1CEBgwTdpiZQzF nClbWL7nX8zFAhlxxxsz6btjn jmJnoyg6vmhh52zD25K99hSDw p GDKbXRBrTRGePQYngJqxpn9ul G9wIi8+PWThwLS5jQS9tQ0eXH DbDrS6VJvoG590WpIhpMLzOyc j r9aez2wnjWr7NaC1PPClcgXza RpzUIA3s7IkJw57X60fWAliJW FtNVHyVOExLYJkbRuugn3yoG1 w Ii8+PXHxrUK7vUC3aI2wCeOxI sO7NLxjY026KcRbdHTeZmdhD4 5gM2QxpNE+KEJzXct2KBPhoMu s IN3rgMMqLLmcXp4pNVX7ChRdT vJhYAgkB8RpXBMyrqccdihhwN S9BBMfCHWmxZ90Oj1muYtaTHF w gLZWzV3bzssee8lixfvnBsIeT PVjJXp6PWl3QPNwvJseUzDrZW O9UyR0UMH8rGUwzI1lgXqyufb g gY8uK5CwUTNegjaaLy91gV3iO cEkMmO1XIzkPfg+Z4ZVTAHWLX QQIBYBVQLgXXtGBQ5HBZ12MM0 8 wNUis5O4dYN8D6SdUPCtkgody gskpYV1HAPlYKGuiW93rJPnEK eyGu8um1H3n133THDeQSJtaC3 7 Ct7nmGlpAYNrgCBVwQ0blvpdr 4krxbkwSqRlXISuXWt1DLr2WY UaoYmdKgJwERX8ZdP5ZXQ9sZP h xD3zyTnvsleqrY7fTpe+MDUvM nibXOd3CZzhcOH+DGAxJKO3sJ ixUGwhCBDchS3xTRRaH9n1JfD w NrM4VBwjC3CeEDGddwvxTc59g U8jZyZzYsI5YOeoQ6VqiuY3PX GgrQBkAIjkXJM3Y01pq2D2OCK w RPXcFIV7wCG1lG9hwXchxlcsv GVmdDsgdmVydGljYWwtYWxpZ2 83AXKitIvoRcq6CQmyBXBtAA8 0 YL28dAXia3U2dHT3Y2GpNBZwm vnlhmpexUL5NHWpAXGgeC46yJ OoJUsaKt2gf3J1z403ILTmXZT w lB24Jh9ahPtbRRUpjRPFsJ5nt teyu7nqentaBgWnWQSlHSn0VY j6NIWwkFmlTjAvOBV3TwE8VMG 0 vJQbaX5kzAopetcexM6rZdh+R gKVCVtZVY13BC65xBDra5G7fZ S5H7CbWAKpchnhuewjzGB0EQY u XSYuyK61cMIhNTxgOy3mx5T5n 511CUWmEECoqV12Sy8ooEorIH OrsJULfT9yxgegw5shyzkcCjT w BNGkVJm4XQc8ZBLlpDatLqCrF WK4QqN5HCA9yOMxrD8rrKrgjb qzoP6uGbq+J1Z1T2CoAhrgiTR + IQ21GGLmSL30nILnmXKwu0jux Ih7AkNnQZFcXWK5fFxvTWked3 BaIFWtK99ivENla5W7TRCjwYj h vBTjOyQeiVF6eF6lQZiahbkvg 3jjahfiGsmxe8yxll91uH26F1 9sIHdpZHRoPSIzMCUiIHZhbGl n ty5vaS3zVu8+GTFutZW6lTM4w F0hJbNvJfL9KTxfX026NgBoqP KqVeywx5zem7zcgNv9YrVtMKL g hiHnyOrwUFQ2y1OiAu45Z30lN HdpZHRoPSIyMCUiIHZhbGlnbj 5fhW1oZv4+YB5xh4mgux53eF6 8 dHI+MXHiTLR5nLwxQPzlMYEcv C1dGEsoDuS9NTLzPiMpsR65qA OlECrnSr7yyBebaUpaUU4kVEH p xfyjf361XrWln5urBFJiiLLgO CgyLOM7X72sj5A8BCPuMQIjQN E0wPS8iO2dxUhhfjvvpDXchEy g rjXwnNcfGCskGSmqX133BXFqv XrrToXovDBjB4jrqnUJBU9sLr wvdGQ+QKTxJEX3uNioMMfwUKB k nO0bUYUaC1j4ZmCpJeV8AObxD 9AmtjS1JCChgMMuBWKtxNVQzB 1xzpjgl2fpqukvEjMnTEDhCOg 0 NAu2JRDwnJokJyFkTYQ1QgX3X DK2pICjkL2jjCyastgmgF5sFt c+RklOOjwvdGQ+XVQrYGT8kAd l VUseWWCgsW6lVHOyI8e5UuFvA cE0TWfsD5SorkO7FCEnjPYnWN VycTPKjM5xamhqt2kfmqebQmI w YGXdHRn9UXs1HPGdyZlcZoTjL RK8HiS7CXJ8qUMcrM1ikGyagu cvaN7vNgr+TVJOOjwvdGQ+PHR k SEF1hHkbMTwsYBUjaX3oAEUyW 3p5NdYvPcI3XFmrU6PmemZ5CX PqfYUuVQFwqIEWwI2veldvj1w v dyynXjQhKBQhNPs6HSm5ESVal HdfVdLfYTN3HqI3DRE0fLHeeT 3qoDgwmxdfrH4xHup+MTU9TVK 6 TE05RX16M1XrOssvkAZfgDT+P HRhYmxlIHdpZHRoPScxMDAlJy OxtLhyPQ4hZl1yLOMvLVWpmTj h cHN (more content not included)... [facility] Orders Onlyon 02-02-2025 Orders Only [id number] Michelle Alejandra [facility] 1945 F Date Provider Department Center 02/02/2025 166-MISTY SOMMERS [facility] Family History Problem Relation Age of Onset Aortic aneurysm Mother Stroke Maternal Grandmother Family Status - Relation Status Age at Mother Father Maternal Grandmother [facility] Office Visiton 01-31-2025 Follow-up visit [id number] Michelle Alejandra [facility] 1945 F Date Provider Department Center 01/31/2025 Lynda-YUE [facility] Family History Problem Relation Age of Onset Aortic aneurysm Mother Stroke Maternal Grandmother Family Status - Relation Status Age at Mother Father Maternal Grandmother Level of Service:84928 OK OFFICE/OUTPATIENT ESTABLISHED HIGH MDM [address] [facility] Outside Recordson 01-04-2025 Outside Records [id number] IFF [facility] 2911-04-2024 29 Addended by: ELIZ CUELLO on: 11/04/2024 10:50 AM Modules accepted: Orders [facility] 36on 11-04-2024 36 Spoke with patient a nd she said her BP has been around 140/75. Advised her to try lisinopril per Dr. Severino. She agrees to this and RX sent to her pharmacy. [facility] 36on 10-27-2024 36 Patient called to boo major you aware that she doesn't like the way losartan makes her feel. She states it makes her very tired and lazy . She said she thinks she can do without it because her BP is normal the second time she takes it. (She waits 10 mins after checking her BP, and then checks it again.) I told her if she goes without it her BP will most likely not be normal. Is there something else you'd like her to try? Please advise. Thanks. [facility] 36on 10-12-2024 36 Patient has been inf ormed and medication has been sent to the pharmacy [facility] 36on 10-07-2024 36 Patient called to boo major you aware of elevated BP's lately. She said she runs around 148-150/76-80. Did you want to make a medication adjustment? Please advise. Thanks. [facility] Telephoneon 10-07-2024 Telephone [id number] Michelle Alejandra cia 1945 F Date Provider Department Center 10/07/2024 ELIZ SNYDER PARVEEN Wiggins Family History Problem Relation Age of Onset Aortic aneurysm Mother Stroke Maternal Grandmother Family Status - Relation Status Age at Mother Maternal Grandmother [facility] Office Visiton 09-06-2024 Follow-up visit [id number] Michelle Alejandra cia 1945 F Date Provider Department Center 09/06/2024 YUE POTTER Family History Problem Relation Age of Onset Aortic aneurysm Mother Stroke Maternal Grandmother Family Status - Relation Status Age at Mother Maternal Grandmother Level of Service:83500 OK OFFICE/OUTPATIENT ESTABLISHED MOD MDM [address] [facility] Outside Recordson 09-02-2024 Outside Records [id number] IFF [facility] Coding Summaryon 07-28-2024 Coding Summary HTMLBase 64 VkrufsjuNAm6uMu+PGhlYWQ+P H4KIEJkJ97cgUWioT8iV6LOIH lOSywgQVBQTElOSyIgbmFtZT1 kaXNjZXJu IC8+WC8uCVXjJnueeIJip2D9f NP2C60mqn4bHVlioLQ7WALiPc Wookgdj7tftGt5EJzqVxleToV t EUDvnH42RMI0xI90Vl85hMSss YCpo4bahZl1FlNyZMZzHCM5bW riYLsvd4JfOXZoC69cmYVas3R 6 LIKykCuzsEHqStDxaZH0lI4xE Wqrjjmyj9bncbboReb6yc59nT Get7F0uBL9Q2XzhlL5RSAgcEF g SfmteISSkJ9nymcbe2mtpdlxU kDeZWZySCr7XDr0YAYuoScoDg McEL82FYF9LKCuxkQkL8DnLDF s nVgfGlT7c6R2Lg1PU3PCJsccB 1VNTUFSWTwvdGQ+GZ99mp47H2 FhRmguQpy7ICFxCXP8rUU9iL6 n BWBkXWdbk3N7mYJ2K9YujsMwz a8ij0aaFHBpHJjrR16pbCXxe4 X6CQKdgHO0ZDCehSnnPnLrpB5 3 Oyc+QYPxfKcxy4WuBxwjl2nrm 1jdpEw5FwigYHPwxeOeyVlfRQ F0p9AjAy0vDGYazHU7bCT6jV3 i WuKsSeA3MZzzX631SjDjsMKvZ anvY15tJ0JujYF+YTDyJqq9XJ IrtImiWD7aI0NqYMGxlqqcvKI m qWtyMQ8tINNkjzksYYNshC3bW WEgM8a1DpPeQoH3DNcnL3WoCI VgvaixHb60fD7kAnPwSoC1XWc u B9IeuqH8TZSkiVIyHVomYNA1P 80fa5L0YDPiVPTgWKB8qCB1cI 1hbGlnbjogbGVmdDsgdmVydGl j GAbrYKuxI315RMJtfOeqRzBhT GluZyBEYXRlOiAgMTEvMDYvMj AyNDwvdGQ+HCIcEDP0vDvwQKV n pYMmVPfoZy8feRpqxYsvCO1yW QWkyfwwLIIvtL7fMATmqKWsiU thMV4fCENtejnrv502KgXqOHW 0 FXQjoDFvC2TmpC7aUbKkTBHtT ERkM7UllCDvDYyzW585HSrwLl O6YUAcdlJyQ5XyJFYjwQigXcC 0 p1R7Fz2Ad0GvqhbxH5EpkFFlU eIdKkhuVFp5A0JeGmeskJX+PC 46IUFaVV85NAm4BTE0tIqySFl i YOVdW9YmsZ1uBzVnZFSxKVVfY yc+PHRhYmxlIHdpZHRoPScxMD UxZyErhLoeOW6gLr9fUJCyXDO v qDvtyJQkWtNrx2lmKYYmWWniI T6rrIzdH2GpxFI6VCZyq8v3Nn 72I89fW4YvfVC+UDFrjRF7uLA 0 iB5lBsIhWpX7PBxdY481KtClf AJlNuupx0hio0albZp7XcR2UN TcanUzhFnoFBA2h5FoEl84M87 s IHdpZHRoPSIxNSUiIHZhbGlnb a3fmN5uRu8+THHemZE5kLG6gH 2uJgRfFzK5KIhtU285BrZyhOH v Amxau7ceh7rkwJm8DjGmQFJqf lRsfFpcBNY5j3MiPn39R6UwzT iff6QqFua2br70bUTco2S9lNZ 9 K9NyYEWqwyxmgCKusFzrET4yZ VNmgjtyVSXvsL6fANMpO8f8Rx YnFfO4TRoiC2IsqpX3OOMhmNE g BONozMGGfX7qglnwo4oaldomM rCvRPIxNNo5EBu8WRXfkWlqQu InQVF0ZcJ2MUX0tKMrdY9vtIt n rqbtbG7iBbr+UOZ1gQScfYXGQ O6uPohdaIA+DZTpOJM1xLajHE xbDOLjkX6dSQSaV8o9KrKhYlV 1 KXrqU1KfzvJ4EHJnsUUfOXVqv DAHvX8zmzzif8jzjqsbBqZdCH RcZVz6MVi0VCUrhDjmBxOrAGO 0 TgB8ZTK3jMPjtM7osAmgwyzef G9wOyc+WiryeYffVHE4TOz6M2 UoFhv3ZZTorSjaQI6inKMzGXb u Hf5beJcrkVrfXD4wMOZwniuks 497QwHpr0yvAGAdvJMiIJyeCY F7K96tk1E7GMQaFJSpKWL5sUY 4 yQ3lsSaobamehAUvzPksqnWis KbxOGbmSNpwT641MLDmoDoiGq PzRMp0V6DeQlp0DHUfhIzyOJ8 n yJAnBQjeMy4dhRancOibZJ9xW DPqatnxg089VrUfp4sxWHQgcL IxSPzhKHG2F79fh7A6FZPpUJB w YRP5vGW4tJ3pcRimzlfgfQWnt KbbumJauAzhRSnfTAbqN366CB RvaGrqZiVspYp6B8RrQzd1FLD z gLybKN1iaGHrWXdsJd9feRern UigMO9uJXWgufudk209YwZzn4 sqRAVvfXGqZYhvBWB7A19ny2F 6 OGZeJOZwVCN2rRZ3tE9gpOyih jogbGVmdDsgdmVydGljYWwtYW exU641YJZndDztNiAixNpetiC g HMbjCWr3A7RvFswyzKL+PC90Y RBkSV98ySJpuHKzw9yooAq3Mg ZzMYPkKOA3zKvpHEkzb1YlVXP t X99tcQEgd7R8DGRzhKzdjQKiD gWxfPD8fZ9yCVoudomnm7rjtp hrWhrgk9vnjq00dP72G26mRCl p FASxYIXvBVLzHTQmfSkcng0ep G9wIi8+IEOcnTE8gWJ1fY8fMP RqVxI2QIzbZ188AaBffBGcPzo j w6utw8mmwGk6JhL8ANYvsxCbr ImbNNW1c2QrMv90T98yQRpdCI EbEIUlIPNhYFZorVugip7gfT2 w Ii8+AWVfjRH5qVZ6mQ9rJfQbV fJ8YYtiU753EwEsgUEuNnvcM5 9lY6YsuBE+NLToFyu6CYBxwGw s UQ0myOJqBOqjXl3qEME0DlVlN zKaSHznH1UeFRYladgqvevveP C1CPRvQDAvsZ04Ot7eqXxtHKN w iVKFmR2vbphho6bkxjfsBhMdZ UXyUMr5XOv6VKUdmVemOjAoKH P1DzB4DHE3nKRtmZ5moOsdndf g xD9eA7RpIVLqeinkTc95qB6jC lPpAlM8VTwcQyq+N5CKCZFYNC GEUNVJPSWsQAkGOX3GIF75OM7 8 gEMxg6S2xBY9E9PgUPDuduppe wbbyAX0IUGzHMIepE36zEMqLE igIh0cm4E9k381ZNCaJUMgbE5 7 Kv8jwNjcKUMlqLSMqW4cfmlly 4lkjzukGxFoWXEjTRk0GVj0SI IkpJldZsTlNUN0JpL6PAQ5oTG h gL0oiMtmuditpT4uCvi+MDUvM knmOEn9BCrtjWA+SYWgKDP7vP ycICoeZOUqbK0mFTFpB1c5ZvL w UzH0NXncP3XjZFKbxrzdLs48q Q2oQnSuZtA4XDdlX1UiwhJ1WG VbpQWtKAfuEVA3S61vn7E5MMQ w GVQbJFX8gRD1rQ0siYcucebza GVmdDsgdmVydGljYWwtYWxpZ2 78BSOuzElbWru0WHtmYGWfUT8 0 YW81eIDnj0D9iUN4Y8IoQZTjx obvwutmfJC0ZBQfPRPnqE34iW OzLXguQh5ik5N3v960JDQjWET w vG60Qg7mbNsbHZBmnYJNwG5ue kngm9qcdlenQmQaRSJwGRq2QY q8GQJwhJgaUfFjFHV6KzH5JRI 0 nJInpM2lqUogumxipP4bMge+R yKIALuGUH58CN91yLHyk6J7lD G7E8UhDGLsoxntjymzrRV6ICI u YBVapB86vDJbFJceVx1xj5D4b 091XZAbXDMhmW11Gy0yhLieNF DupMFChY0oqzvgr2bxztkiMeY w KNEdHIz1MKd6KVGypDkjHfBqG ZA2LbI7BAJ3rUTqsH7vwTkpwm gibD1jKvw+M7O6G3KuDmaxiVY + PX00LXBmDH72eLMuzBFil9zve Uz5PzBvGNQvFKW5bWbgZPpwu8 BhOUTzO66paRQpv1K8JMDhgOh h vOAvVpZqxSM1wE5lJHmeyursk 4wvveziDvgua0zrzl20rF94N8 9sIHdpZHRoPSIzMCUiIHZhbGl n cp0siR6tKi2+DNQmqTJ3cHC1p A7iAxZoZcR4KBxqI654HeVsyU WiSzgip2xic2ajkZi5McFoUHP g thAzdHffSGN6j0AoVo02O31xY HdpZHRoPSIyMCUiIHZhbGlnbj 0qpL5rBc3+LA8dx1yjcd58oQ9 8 dHI+TQUyDTR6jYsmFJcpTKEdr Q9uXDhdKyZ5WJPaBlWjhA41iG TyILoeAs2wfRdyrEvvER5lYCM p ldsam191DdOds2zeCQDvfUDnX MrhUWM6A73ww1Q2YYXqJKYuBU Q0eFJ4mF8aaGuogswvvLCaqAe g tjXvlGmgULddEXmiY749TJVry NraUhQfsTSpI1bhmvLFZA9gOk wvdGQ+IZHoDLS6zEbcPCseDEX k aG1sVILrJ5k2PkHnBvF2USzjI 7YxcsV0YWHclUDyAMFquUUHaM 9wvpmpi7okioorCfYdKAKkIUr 0 PWv6UYUxbYatAkUeEZY0VnX0U VF5cZAqhF6qdRjptxhiyF9eAd c+RklOOjwvdGQ+UEVxKRP5nGi l RVymNVMinS3aNMGxO0t9OzGnL bP5EHkyL1XjlfJ3ZUJhmZLsVN VcnDPEoB7angkay6nxkpkoXyG w ZVTeRZl5DWs2VGOoeAhxFhSrA NV5ZpA9CCF2xJWmpD8beUcyov norU4lLbn+TVJOOjwvdGQ+PHR k YDK5uGpvXZfaSWZqeE8yXMUlL 4j6ZkEgNwF7ZIhuL2TofqG6ZM FizFOzHGDguPPPiV2vcaaoj1j v thqbUqWvFPFaSZn0COj1HYOpk NkyJaInFCY0FxE8GLF0lQGkiK 7gsUfehqdgwS6xQrr+VJG2ROI 6 FI79XI86A2GzKbzwiFIbxAM+P HRhYmxlIHdpZHRoPScxMDAlJy PqeHyaPG2zHe5wLSLzJGNclPn h cHN (more content not included)... [facility] Outside Recordson 07-21-2024 Outside Records [id number] IFF [facility] Coding Summaryon 07-19-2024 Coding Summary HTMLBase 64 AbyqzkinQJr4aIf+PGhlYWQ+P C4RNPUrC01wmBEwvR7uI1CAND lOSywgQVBQTElOSyIgbmFtZT1 kaXNjZXJu IC8+SX8hNBVxQjfswJAxj6M4c RP8F80cic7mERxvkRD5YXQcNm Htjsdum3piqWj1UFfmBpzfSuJ t ZXNdhZ89LJE6yN16Qn01fBNhw SZrs5hnwNx0DoMtRESyNUC7dO keMWmgm9SrGOSuF29akHJpy0F 6 TPQrsUyruQMfDnAsuAJ2nI7yQ Datdudkq5mjtmfyNsf6vy70tY Ccy8F4hHQ9U4JpouN9BLHvkQF g JhyfwOHWkD7qwkiys1cszolnS cKwJUYkJHy4NFm7OBBugNeoFg LpLL68DXU2NWGgdjKuE0HjOWW s oQsaGvN9i1S5Yi2KK3SSKrjtL 1VNTUFSWTwvdGQ+PE97rv06G9 PrMcjqSjs7XAWbXES7rFJ8sG1 n MZHkJMxel9L6jOB6J5KhhdPto c9tt2qrPPFcDLtdO65njMRmj1 V3YPUnvPI6VXFwyWtiAcVsvE2 3 Oyc+JNJwgObgv6GrWzqkz8quo 9iiaZh2RwngFGTpcaLrnVjrNI R4q3OlFo0uWZKjkFZ4rXC8iZ9 i MdTaXzR8WMzeG037ZhPfwXTzZ csqC40xH9PmhOX+QCLlHnl9BA GogBkyKJ9iO5VsNROsyhsjoYR m hJlrGA8nHJKmdfhlVQNazL1lE OEdE5p0LnDnZvM4XJxxV5RrHA AnreyjEl18dS4eEhOsYtN0RJv u S4EjgpH6DOMofNYmIZqqDIC2D 98sm6H8XQZtFHKcIEN7aYP7tC 1hbGlnbjogbGVmdDsgdmVydGl j ZYcuQWwzT703BPPmnOjbNuQoL GluZyBEYXRlOiAgMTAvMjgvMj AyNDwvdGQ+XSNdNZS5qUwoNYM n rCXfRYcnDz4fhOuhbAolOM7lI NGtbtyxCMUyeN2pOUFgvVWmnH odJU5kJTTohatrr903HkBzJQY 0 RWJjyOCpU4CkpY5tTxMiHQLxL CMtB3QkvPUzDHsqE828GIjsBb U7AQOqqfCjN7VcELClmAalWeE 0 h4A2Gb2Lo3OdboceR8UyeJQvQ yOxIgzaVPj2A4SlFgyprEV+PC 99VUVjPZ73CKg0GEQ5jTvgDKt i XNYxG6YeoE0pYlUhSVAiTBKqM yc+PHRhYmxlIHdpZHRoPScxMD DtGeInbHsdWE0eSi2oNZHeFHG v fIpyqDZvQgNib2cxBFTyWZeoB H3yjSxsP8QgsHL1WZHpn5o9Gn 25S68hE0SeaIN+GOXvvDS2eRA 0 qV2tSzNqXwW9VUfrJ275RkFgm LEqNtiwc2spi1rriLi5NxU5CC PicgIqmFiaGZZ2y7JrSa99O96 s IHdpZHRoPSIxNSUiIHZhbGlnb i5opC5bVb6+GBRlxHU5rXD0qC 6cImRqEjQ4ATinK227JvPttRG v Dgtkg6eug9drwIb7RuJrSQJko qLpiZbxVJD7u6RsBq23F2WqiN ymb0GcBpx9lz51dLApy8S9rJM 9 J6QcDNNykrlulVEvoDbdYY1aZ CUbvyyqJMAukA1gTNLiC1i5Dq TkQtI9JLgvK1VuwlR2UYWyuBX g NBScoSTUcS0czaiqi8kdqustT qNxCZSxXGq1IFj2HIOfoXryXw QiKPX3KjL9LMG5bFSkcY8jzWh n flrcfO4tIsx+QYO3yHFrcSMKO U4jKvngtTD+VKChJEA2wRzcZQ xmJRYmzT3fPCCbY8b7FdUlXbU 1 TAxoO8NdalZ9ZVXmtIKoDUJxx ZUTrM0rrwtcb5kvvsbdTtSfFF YtVBm9HWu3MGBiiFxfMgKoQJH 0 UkA5SHX7yHHqsT7icEuzjudam G9wOyc+TonpcBxkDZD2DIx8F1 EzBzp4UHCbqIieZP3lvZYtRQk u Bq6woDkskTnsFN1vYOFsqopco 507RtMyj2glKUFriIBzADmrYB W1R45no0B5VRTvJHGwLAZ8sWJ 4 bF0ioQnlrgussPMwxBcnvfCer IumNBkqIHmvK348AFMfkZubMo OmGNh1V8YxQuq0RNFyfZsaZV7 n kABqTKfaGg4biBulyAtwPX3vS TEmwqxdh347ZiVaz2dxRFSzfX SlPXkcKVG5E15of3M4CHIyERV w JDV7xSR5nB2taXkiiujkaNRur WgxlgEalPvsOCbyFQzpO948QM HerUcrJaEndVy8M3ZiRdb6CBS z mBfsHN1toEEoDIalMg8wkLivh GkcFF9lMULpnirvp735PoKyw3 daRBGnxYNkQMxzEWE9L58gb0X 6 GECmBMIiJJR6dDW0tB3utVafd jogbGVmdDsgdmVydGljYWwtYW txS136BNOlcYeyDlQlzNlgdqT g BFctSDq7Y7BdWwgvhUK+PC90Y SMqLQ56gXXlwDGvg3hgaEt5Tv JuDEUdMFJ8yEoeAGwcw2EhILK t S24itBSdm4L4BMRfaJdayTIiY wKbkMG6aH2qDYhijvsgj4kyxa ofMbaye1xbtu59kK76Q46sKGj p CYCmJKKkLBYtQQYyeIyquw1rm G9wIi8+ZKXofBU4jBS7eL6vTH BqIoV2REpuM434WqRudYPvEiu j y1lbr4roeEj7DrR1ZTYhzzTbj KsgHIK7i4XcFl04G74dZRznTD LsUBYhMDIzQMOroLqbvo9pgB3 w Ii8+NFPveCY5cFX2cN6sCrOkV oY2FBmhV858PyKcnQUvJovjG9 3xG2SuoOV+YQJpTmv2FUDhnHm s ND5sgSYoFEpiHc5cGRE3QuZjN jOmRNakZ3McZKPqsskwyfwwkE U9MVOlPDUjlO53Hc6guXjkYTW w qHAVbY8ldliaz8acwrghChPeC DZfUDn5SYn9VXLdoLfnFpBdCU O2YtC4NHI0dZHgvU8pfEzkuha g bJ0bE3TaITQtwodtWv07sF8fQ bNdBjN2TOxmJvw+P6ADKLMIVV FAUHDLGRYdWUbDAO5DTA36UR3 8 uYDpl1Q1yPE6C3YyMGZyeloxr fjgeJW9PQIbKOOzjA76kCDoJD emEt9lt7C8p579QLKfCDRujQ4 7 Zu8vgSyfMEDuiQECkY4ubxihq 2xqptdbQcPaYRAyDUx5EJh1GA CxkGgcMwMdOUW9KpT1AMB9vEM h oQ4yyEmkwcowzZ4jAnl+MDUvM nwlEPo8HYvqiWD+RNIuMFW7rT ioXWynFBAtnQ2sJSOhU5d7CuQ w PmY5ITaxV8KdPRKdxqqtNn52a K4nLeOxEvB2IHnbA1FitlQ0NH JsmAAiBYztNLK2C06ta4Q3INA w RKPsWQU4tNH4rK6rjTkkrawdy GVmdDsgdmVydGljYWwtYWxpZ2 86MULyeQkyBiz5LGlbGUEuAI7 0 OT15cJYmz8J0rAU6N3NmZEBss ydwpdxjcRP8TADwOOUpbT05dP HmJLsdRi4zr2U1v403FWHnDTO w qD89Zf5scDmzMLUoqVQHkD4kl acut4bkeoprAsUsTDNiEXy8CJ r2ERXojPwrUiVoXWO7GbI5JYU 0 wJSaiG1xfKptkwzluS2eDbt+R yZUCBrNCI01MC09jKDbk9X7fZ Y6U7OlQBGpdkmwjmshgOL7OIO u DYJfyQ05uEQvYQhsJy5ig0D7m 626ETPsYSAbjS71Co1wyImsFB XrsSTYwV7sopjvv4vprkbdVtY w SHEcPLt1KBl2CLLtjBcfKvJqU HH9UrZ7WUJ7rFNljU4gtYulpu fcfF8vRds+T4M1J8MtYhgscEQ + DO42KOXmDS64kBOifLFma2urn Cs3FpPkBWSmGSZ1zQxpJWugz6 ErCFWjS81veKUrc9G9XRLexFt h uZPpYrHldWN6iO2aQUugwruoq 4crbmiuUywll6xpng34cT28C7 9sIHdpZHRoPSIzMCUiIHZhbGl n wt2kkP5lBm2+FTRixLV3uMM9i P8uHeHaVvX6THhpD492KwDbiM JvHfppo5cnc5gnxEf8ZfNoSWU g kxPadTpnJWZ8n1NwHu89A71aE HdpZHRoPSIyMCUiIHZhbGlnbj 3gkR0lQn4+RV0ho7whib12hN9 8 dHI+BVOiOZQ3qWlvMNyuGQGxv E4nUZjyLcY8TUNpKcJuuE40oE ZqLGlqEy2bwTybbBckWY8rWTI p opuzh775TaIdy0gcMDPjqBZoI QkpLSZ1S61oh3E0XUZzRHFuGN B2jEA8kE5zkOdfrrnptUEdwTy g zmXqgTbmDIfbEUyeZ196PBFvz XbyChWqbOHtY4nznzGLYD3wQo wvdGQ+UFPpIKX2fMmuXPnhINF k iW2tVCOqD2d6PfLvZaM5EIlqD 4KnuaS8YRWjfOJjOKNdnJRGlM 6mrluca0oxqcmiBrGbTWBhFYk 0 AEu6EGRqaKvrDoCgAXI4NrH1Y II8eNKxrE5mzFejytxcvJ0yZi c+RklOOjwvdGQ+UDHuBBQ4lVw l EQzvZIPwtV0zGIDjZ5p7FrRnJ tD7ZFpsL1QnvgK1PBVqxOFiQX KjwSJIrS5wrxdyd3wbtcgzYrH w PRYxIOc0APd7AJLnlNxhGeHdN SA3VgV4ALV5lPPrhX6tiWbpdn okgQ1xDmq+TVJOOjwvdGQ+PHR k HZN1tPkjILybQXYffJ2bISOuY 9z8EnRxQkM1KFaxD0HnvzY6BO OgzSMaHHPwxACFpK4rngdag9e v zvtmFyQuRZJzAIw7JSh7YYOuf UhmDmAfGPQ8OgI4ASZ8bXXyeY 3wbPsqlnicoY2fOro+GKV6OXJ 6 OI19FO50Q3AxYrhymRPkfTM+P HRhYmxlIHdpZHRoPScxMDAlJy QioHwdUR7jRn2cSPQeTSZdcVl h cHN (more content not included)... [facility] 07-09-2024 History Of Present Illness Moustapha Alejandra is a 79 y.o. female presenting with Cryptogenic stroke. Past Medical History She has a past medical history of Stroke (CMS/HCC). Surgical History She has a past surgical history that includes Hip surgery; section, classic; Dermoid cyst excision; Abdominal surgery; Hysterectomy; and Breast biopsy. Social History She reports that she has never smoked. She has never used smokeless tobacco. She reports that she does not drink alcohol. No history on file for drug use. Allergies Iodine, Meperidine, Iodinated contrast media, and Neomycin Medications Medications Prior to Admission Medication Sig Dispense Refill Last Dose amLODIPine (Norvasc) 10 mg tablet Take 10 mg by mouth in the morning. 07/09/2024 apixaban (Eliquis) 5 mg tablet Take 1 tablet (5 mg) by mouth two times daily. 180 tablet 3 Past Week atorvastatin (Lipitor) 40 mg tablet Take 40 mg by mouth in the morning. 07/08/[address] capsule Take 60 mg by mouth in the morning. 07/09/2024 fexofenadine (Graciela) 180 mg tablet Take 180 mg by mouth in the morning. 07/09/2024 hydroCHLOROthiazide (HYDRODiuril) 25 mg tablet Take 25 mg by mouth in the morning. 07/09/2024 Review of Systems Physical Exam Last Recorded Vitals Blood pressure 145/55, pulse 91, resp. rate 18, SpO2 99 %. Relevant Results Cryptogenic CVA Assessment/Plan Principal Problem: Paroxysmal atrial fibrillation (CMS/HCC) JENAE Awan MD [facility] NURSNOTEon 07-09-2024 NURSNOTE RN educated pt on d/ c instructions. This included: site care, limited physical activity, resume normal diet, future appointments, medications, and moderate sedation instructions. RN educated pt on when to notify physician and when to go to the hospital. RN encouraged pt to voice any questions or concerns, and answered any questions or concerns if pt verbalized. Pt was wheeled off of unit with all of belongings. [facility] Outside Recordson 07-08-2024 Outside Records [id number] FF [facility] XR hip RT min 2V(w/wo pelvis )*on 06-29-2024 XR hip RT min 2V(w/wo pelvis)* [facility] [address] [place] [address] XRay Report Signed Patient: Moustapha Alejandra MR#: [id number] : 1945 Acct:[id number] Age/Sex: 79 / F ADM Date: 06/29/24 Loc: [facility] Room: Type: [facility] Attending Dr: Rosemary Serra MD Copies to: Rosemary Serra MD Ordering Provider: Rosemary Serra MD Date of Service: 06/29/24 XR/XR hip RT min 2V(w/wo pelvis)*: S72.011A - Unspecified intracapsular fracture of right fe... RIGHT HIP - 2 views: CLINICAL HISTORY: Follow-up right hip hemiarthroplasty COMPARISON: Right hip January 22, 2024 FINDINGS: Right hip hemiarthroplasty without hardware complication. Mild degenerative changes of the left hip without acute bony process. Additional degenerative changes seen involving the visualized lower lumbar spine, SI joints and pubic symphysis. XR/XR hip RT min 2V(w/wo pelvis)* IMPRESSION: NO HARDWARE COMPLICATION IS SEEN.. Impression dictated by: Trey Faye Jr., D.O.06/29/2024 4:25 PM Dictation Location: [id number] Transcribed By: [facility] 06/29/241624 Dictated By: Trey Faye Jr DO 06/29/241623 Signed By: 06/29/241624 Normal [facility] Office Visiton 06-18-2024 Follow-up visit [id number] Michelle Alejandra cia 1945 F Date Provider Department Center 06/18/2024 [facility] Family History Problem Relation Age of Onset Aortic aneurysm Mother Stroke Maternal Grandmother Family Status - Relation Status Age at Mother Maternal Grandmother Level of Service:24152 [place] OFFICE/OUTPATIENT NEW HIGH MDM 60 MINUTES Normal [facility] Calcium [Mass/volume] in Ser um or PlasmaOrdered By: Avtar Barbosa on 02-08-2024 Calcium [Mass/Vol] 8.8 mg/dL 8.6-10.3 [facility] Carbon dioxide, total [Moles /volume] in Serum or PlasmaOrdered By: Avtar Barbosa on 02-08-2024 CO2 [Moles/Vol] 32.4 mmol/L High 21.0-31.0 [facility] Chloride [Moles/volume] in S nathan or PlasmaOrdered By: Avtar Barbosa on 02-08-2024 Chloride [Moles/Vol] 98 mmol/L 98-107 [facility] Creatinine [Mass/volume] in Serum or PlasmaOrdered By: Avtar Barbosa on 02-08-2024 Creatinine [Mass/Vol] 0.89 mg/dL 0.60-1.20 [facility] Glucose [Mass/volume] in Ser um or PlasmaOrdered By: Avtar Barbosa on 02-08-2024 Glucose [Mass/Vol] 105 mg/dL High 70-100 [facility] Comment on above: ADA recommended refe rence rangeRandom Glucose Reference Range is dependent on time and content of last meal. Glucose of more than 200 mg/dL in a nonstressed, ambulatory subject supports the diagnosis of Diabetes Mellitus. No Panel InformationOrdered By: Avtar Barbosa on 02-08-2024 Estimated GFR (CKD-EPI) > 60.0 mL/Min [facility] Creatinine Clearance (Chem 54.62 [facility] > 60.0 mL/Min [facility] 54.62 [facility] Potassium [Moles/volume] in Serum or PlasmaOrdered By: Avtar Barbosa on 02-08-2024 Potassium [Moles/Vol] 3.5 mmol/L 3.5-5.1 [facility] Serum or plasma anion gap de terminationOrdered By: Avtar Barbosa on 02-08-2024 Anion gap [Moles/Vol] 11.1 mmol/L 6.0-15.0 [facility] Sodium [Moles/volume] in Ser um or PlasmaOrdered By: Avtar Barbosa on 02-08-2024 Sodium [Moles/Vol] 138 mmol/L 136-145 [facility] Urea nitrogen [Mass/volume] in Serum or PlasmaOrdered By: Avtar Barbosa on 02-08-2024 Urea nitrogen [Mass/Vol] 16 mg/dL 7-25 [facility] Basophils Auto (Bld) [#/Vol] Ordered By: Trey Guerra on 02-05-2024 Basophils (Bld) [#/Vol] 0.0 10*3/uL 0.0-0.2 [facility] Basophils/100 WBC Auto (Bld) Ordered By: Trey Guerra on 02-05-2024 Basophils/100 WBC (Bld) 0.6 % . [facility] Eosinophils Auto (Bld) [#/Vo l]Ordered By: Trey Guerra on 02-05-2024 Eosinophils (Bld) [#/Vol] 0.4 10*3/uL 0.0-0.45 [facility] Eosinophils/100 WBC Auto (Bl d)Ordered By: Trey Guerra on 02-05-2024 Eosinophils/100 WBC (Bld) 5.8 % . [facility] Erythrocyte distribution wid th Auto (RBC) [Ratio]Ordered By: Trey Guerra on 02-05-2024 Erythrocyte distribution width (RBC) [Ratio] 13.7 % 11.9-15.3 [facility] Hematocrit Auto (Bld) [Volum e fraction]Ordered By: Trey Guerra on 02-05-2024 Hematocrit (Bld) [Volume fraction] 27.8 % Low 34.0-46.4 [facility] Hemoglobin [Mass/volume] in BloodOrdered By: Trey Guerra on 02-05-2024 Hemoglobin (Bld) [Mass/Vol] 9.5 g/dL Low 11.8-15.4 [facility] Hypochromia LM Ql (Bld)Order ed By: Trey Guerra on 02-05-2024 Hypochromia Ql (Bld) Moderate [facility] Leukocytes [#/volume] correc kyra for nucleated erythrocytes in Blood by Automated counOrdered By: Trey Guerra on 02-05-2024 WBC corrected for nucl RBC Auto (Bld) [#/Vol] 6.6 10*3/uL 3.8-11.6 [facility] Lymphocytes Auto (Bld) [#/Vo l]Ordered By: Trey Guerra on 02-05-2024 Lymphocytes (Bld) [#/Vol] 0.9 10*3/uL Low 1.00-4.8 [facility] Lymphocytes/100 WBC Auto (Bl d)Ordered By: Trey Guerra on 02-05-2024 Lymphocytes/100 WBC (Bld) 13.7 % . [facility] MCH Auto (RBC) [Entitic mass ]Ordered By: Trey Guerra on 02-05-2024 MCH (RBC) [Entitic mass] 29.9 pg 24.7-34.3 [facility] MCHC Auto (RBC) [Mass/Vol]Or dered By: Trey Guerra on 02-05-2024 MCHC (RBC) [Mass/Vol] 34.1 g/dL 32.0-35.0 [facility] MCV Auto (RBC) [Entitic vol] Ordered By: Trey Guerra on 02-05-2024 MCV (RBC) [Entitic vol] 87.6 fL 80-100 [facility] Microcytes LM Ql (Bld)Ordere d By: Trey Guerra on 02-05-2024 Microcytes Ql (Bld) Slight [facility] Monocytes Auto (Bld) [#/Vol] Ordered By: Trey Guerra on 02-05-2024 Monocytes (Bld) [#/Vol] 0.8 10*3/uL 0.0-0.8 [facility] Monocytes/100 WBC Auto (Bld) Ordered By: Trey Guerra on 02-05-2024 Monocytes/100 WBC (Bld) 11.3 % . [facility] Neutrophils Auto (Bld) [#/Vo l]Ordered By: Trey Guerra on 02-05-2024 Neutrophils (Bld) [#/Vol] 4.5 10*3/uL 1.8-7.7 [facility] Neutrophils/100 WBC Auto (Bl d)Ordered By: Trey Guerra on 02-05-2024 Neutrophils/100 WBC (Bld) 68.6 % . [facility] Nucleated erythrocytes [Pres ence] in Blood by Automated countOrdered By: Trey Guerra on 02-05-2024 Nucleated RBC Auto Ql (Bld) 0.2 /100{WBC} 0-0.5 [facility] Platelet adequacy [Presence] in Blood by Light microscopyOrdered By: Trey Guerra on 02-05-2024 Platelets LM Ql (Bld) Normal Normal [facility] Platelet mean volume Auto (B ld) [Entitic vol]Ordered By: Trey Guerra on 02-05-2024 Platelet mean volume (Bld) [Entitic vol] 8.7 fL 6.3-10.7 [facility] Platelet morphology finding [Identifier] in BloodOrdered By: Trey Guerra on 02-05-2024 Platelet morphology finding Nom (Bld) Normal Normal [facility] Platelets Auto (Bld) [#/Vol] Ordered By: Trey Guerra on 02-05-2024 Platelets (Bld) [#/Vol] 208 10*3/uL 150-450 [facility] Poikilocytosis [Presence] in Blood by Light microscopyOrdered By: Trey Guerra on 02-05-2024 Poikilocytosis LM Ql (Bld) Slight [facility] Polychromasia [Presence] in Blood by Light microscopyOrdered By: Trey Guerra on 02-05-2024 Polychromasia LM Ql (Bld) Slight [facility] RBC Auto (Bld) [#/Vol]Ordere d By: Trey Guerra on 02-05-2024 RBC (Bld) [#/Vol] 3.17 10*6/uL Low 3.60-5.00 [facility] RBC morphologyOrdered By: Natalie Guerra on 02-05-2024 RBC morphology finding Nom (Bld) Normal Normal [facility] Red blood cell stomatocyte d etectionOrdered By: Trey Guerra on 02-05-2024 Stomatocytes LM Ql (Bld) Slight [facility] WBC Auto (Bld) [#/Vol]Ordere d By: Trey Guerra on 02-05-2024 WBC (Bld) [#/Vol] 6.6 10*3/uL 3.8-11.6 [facility] Bilirubin Test strip Ql (U)O rdered By: Loulou Newton on 02-04-2024 Bilirubin Ql (U) Negative Negative [facility] Color Auto (U)Ordered By: Magno Newton on 02-04-2024 Color (U) Yellow Yellow [facility] Ketones Auto test strip (U) [Mass/Vol]Ordered By: Loulou Newton on 02-04-2024 Ketones (U) [Mass/Vol] Negative Negative Fi [facility] Nitrite Test strip Ql (U)Ord ered By: Loulou Newton on 02-04-2024 Nitrite Ql (U) Negative Negative [facility] Protein Auto test strip (U) [Mass/Vol]Ordered By: Loulou Newton on 02-04-2024 Protein (U) [Mass/Vol] Negative Negative Fi [facility] Specific gravity Auto test s trip (U) [Rel density]Ordered By: Loulou Newton on 02-04-2024 Specific gravity (U) [Rel density] 1.006 1.001-1.03 0 [facility] Urine clarity by refractomet ry automatedOrdered By: Luolou Newton on 02-04-2024 Clarity Refractometry automated (U) Clear Clear [facility] Urine glucose measurement by automated test strip (mass/volume)Ordered By: Loulou Newton on 02-04-2024 Glucose Auto test strip (U) [Mass/Vol] Normal mg/dL Normal [facility] Urine hemoglobin detection b y automated test stripOrdered By: Loulou Newton on 02-04-2024 Hemoglobin Auto test strip Ql (U) Negative Negative [facility] Urine leukocyte esterase det ection by automated test stripOrdered By: Loulou Newton on 02-04-2024 Leukocyte esterase Auto test strip Ql (U) Negative Negative [facility] Urobilinogen Auto test strip (U) [Mass/Vol]Ordered By: Loulou Newton on 02-04-2024 Urobilinogen (U) [Mass/Vol] Normal mg/dL Normal [facility] pH Auto test strip (U)Ordere d By: Loulou Newton on 02-04-2024 pH (U) 7.0 [pH] 5.0-9.0 [facility] Alanine aminotransferase [En zymatic activity/volume] in Serum or PlasmaOrdered By: Trey Guerra on 01-31-2024 ALT [Catalytic activity/Vol] 10 U/L 7-52 [facility] Albumin [Mass/volume] in Ser um or Plasma by Bromocresol green (BCG) dye binding methoOrdered By: Trey Guerra on 01-31-2024 Albumin BCG dye [Mass/Vol] 2.6 g/dL Low 3.5-5.7 [facility] Alkaline phosphatase [Enzyma tic activity/volume] in Serum or PlasmaOrdered By: Trey Guerra on 01-31-2024 ALP [Catalytic activity/Vol] 61 U/L 34-104 [facility] Aspartate aminotransferase [ Enzymatic activity/volume] in Serum or PlasmaOrdered By: Trey Guerra on 01-31-2024 AST [Catalytic activity/Vol] 22 U/L 13-39 [facility] Bilirubin.total [Mass/volume ] in Serum or PlasmaOrdered By: Trey Guerra on 01-31-2024 Bilirubin [Mass/Vol] 0.4 mg/dL 0.3-1.0 [facility] Globulin Calc (S) [Mass/Vol] Ordered By: Trey Guerra on 01-31-2024 Globulin (S) [Mass/Vol] 2.0 g/dL [facility] Prealbumin [Mass/volume] in Serum or PlasmaOrdered By: Trey Guerra on 01-31-2024 Prealbumin [Mass/Vol] 11.9 mg/dL Low 17.0-34.0 [facility] Protein [Mass/volume] in Ser um or PlasmaOrdered By: Trey Guerra on 01-31-2024 Protein [Mass/Vol] 4.6 g/dL Low 6.4-8.9 [facility] Serum or plasma albumin/glob ulin mass ratioOrdered By: Trey Guerra on 01-31-2024 Albumin/Globulin [Mass ratio] 1.3 {ratio} [facility] Alanine aminotransferase [En zymatic activity/volume] in Serum or PlasmaOrdered By: Howard Golden on 01-30-2024 ALT [Catalytic activity/Vol] 13 U/L 7-52 [facility] Albumin [Mass/volume] in Ser um or Plasma by Bromocresol green (BCG) dye binding methoOrdered By: Howard Golden on 01-30-2024 Albumin BCG dye [Mass/Vol] 2.8 g/dL Low 3.5-5.7 [facility] Alkaline phosphatase [Enzyma tic activity/volume] in Serum or PlasmaOrdered By: Howard Golden on 01-30-2024 ALP [Catalytic activity/Vol] 60 U/L 34-104 [facility] Aspartate aminotransferase [ Enzymatic activity/volume] in Serum or PlasmaOrdered By: Howard Golden on 01-30-2024 AST [Catalytic activity/Vol] 19 U/L 13-39 [facility] Basophils Auto (Bld) [#/Vol] Ordered By: Howard Golden on 01-30-2024 Basophils (Bld) [#/Vol] 0.0 10*3/uL 0.0-0.2 [facility] Basophils/100 WBC Auto (Bld) Ordered By: Howard Golden on 01-30-2024 Basophils/100 WBC (Bld) 0.2 % . [facility] Bilirubin.total [Mass/volume ] in Serum or PlasmaOrdered By: Howard Golden on 01-30-2024 Bilirubin [Mass/Vol] 0.4 mg/dL 0.3-1.0 [facility] Calcium [Mass/volume] in Ser um or PlasmaOrdered By: Howard Golden on 01-30-2024 Calcium [Mass/Vol] 8.0 mg/dL Low 8.6-10.3 [facility] Carbon dioxide, total [Moles /volume] in Serum or PlasmaOrdered By: Howard Golden on 01-30-2024 CO2 [Moles/Vol] 27.9 mmol/L 21.0-31.0 [facility] Chloride [Moles/volume] in S nathan or PlasmaOrdered By: Howard Golden on 01-30-2024 Chloride [Moles/Vol] 104 mmol/L 98-107 [facility] Creatinine [Mass/volume] in Serum or PlasmaOrdered By: Howard Golden on 01-30-2024 Creatinine [Mass/Vol] 0.87 mg/dL 0.60-1.20 [facility] Eosinophils Auto (Bld) [#/Vo l]Ordered By: Howard Golden on 01-30-2024 Eosinophils (Bld) [#/Vol] 0.0 10*3/uL 0.0-0.45 [facility] Eosinophils/100 WBC Auto (Bl d)Ordered By: Howard Golden on 01-30-2024 Eosinophils/100 WBC (Bld) 0.0 % . [facility] Erythrocyte distribution wid th Auto (RBC) [Ratio]Ordered By: Howard Golden on 01-30-2024 Erythrocyte distribution width (RBC) [Ratio] 13.7 % 11.9-15.3 [facility] Globulin Calc (S) [Mass/Vol] Ordered By: Howard Golden on 01-30-2024 Globulin (S) [Mass/Vol] 2.2 g/dL [facility] Glucose [Mass/volume] in Ser um or PlasmaOrdered By: Howard Golden on 01-30-2024 Glucose [Mass/Vol] 129 mg/dL High 70-100 [facility] Comment on above: ADA recommended refe rence rangeRandom Glucose Reference Range is dependent on time and content of last meal. Glucose of more than 200 mg/dL in a nonstressed, ambulatory subject supports the diagnosis of Diabetes Mellitus. Hematocrit Auto (Bld) [Volum e fraction]Ordered By: Howard Golden on 01-30-2024 Hematocrit (Bld) [Volume fraction] 29.3 % Low 34.0-46.4 [facility] Comment on above: Delta: 43.0 on 01/28 Hemoglobin [Mass/volume] in BloodOrdered By: Howard Golden on 01-30-2024 Hemoglobin (Bld) [Mass/Vol] 9.9 g/dL Low 11.8-15.4 [facility] Leukocytes [#/volume] correc kyra for nucleated erythrocytes in Blood by Automated counOrdered By: Howard Golden on 01-30-2024 WBC corrected for nucl RBC Auto (Bld) [#/Vol] 11.4 10*3/uL 3.8-11.6 [facility] Lymphocytes Auto (Bld) [#/Vo l]Ordered By: Howard Golden on 01-30-2024 Lymphocytes (Bld) [#/Vol] 0.5 10*3/uL Low 1.00-4.8 [facility] Lymphocytes/100 WBC Auto (Bl d)Ordered By: Howard Golden on 01-30-2024 Lymphocytes/100 WBC (Bld) 4.0 % . [facility] MCH Auto (RBC) [Entitic mass ]Ordered By: Howard Golden on 01-30-2024 MCH (RBC) [Entitic mass] 29.9 pg 24.7-34.3 [facility] MCHC Auto (RBC) [Mass/Vol]Or dered By: Howard Golden on 01-30-2024 MCHC (RBC) [Mass/Vol] 34.0 g/dL 32.0-35.0 [facility] MCV Auto (RBC) [Entitic vol] Ordered By: Howard Golden on 01-30-2024 MCV (RBC) [Entitic vol] 88.2 fL 80-100 [facility] Monocytes Auto (Bld) [#/Vol] Ordered By: Howard Golden on 01-30-2024 Monocytes (Bld) [#/Vol] 0.5 10*3/uL 0.0-0.8 [facility] Monocytes/100 WBC Auto (Bld) Ordered By: Howard Golden on 01-30-2024 Monocytes/100 WBC (Bld) 4.3 % . [facility] Neutrophils Auto (Bld) [#/Vo l]Ordered By: Howard Golden on 01-30-2024 Neutrophils (Bld) [#/Vol] 10.5 10*3/uL High 1.8-7.7 [facility] Neutrophils/100 WBC Auto (Bl d)Ordered By: Howard Golden on 01-30-2024 Neutrophils/100 WBC (Bld) 91.5 % . [facility] No Panel InformationOrdered By: Howard Golden on 01-30-2024 Estimated GFR (CKD-EPI) > 60.0 mL/Min [facility] Creatinine Clearance (Chem 56.18 [facility] > 60.0 mL/Min [facility] 56.18 [facility] Nucleated erythrocytes [Pres ence] in Blood by Automated countOrdered By: Howard Golden on 01-30-2024 Nucleated RBC Auto Ql (Bld) 0.0 /100{WBC} 0-0.5 [facility] Platelet mean volume Auto (B ld) [Entitic vol]Ordered By: Howard Golden on 01-30-2024 Platelet mean volume (Bld) [Entitic vol] 9.2 fL 6.3-10.7 [facility] Platelets Auto (Bld) [#/Vol] Ordered By: Howard Golden on 01-30-2024 Platelets (Bld) [#/Vol] 144 10*3/uL Low 150-450 [facility] Potassium [Moles/volume] in Serum or PlasmaOrdered By: Howard Golden on 01-30-2024 Potassium [Moles/Vol] 3.7 mmol/L 3.5-5.1 [facility] Protein [Mass/volume] in Ser um or PlasmaOrdered By: Howard Golden on 01-30-2024 Protein [Mass/Vol] 5.0 g/dL Low 6.4-8.9 [facility] RBC Auto (Bld) [#/Vol]Ordere d By: Howard Golden on 01-30-2024 RBC (Bld) [#/Vol] 3.32 10*6/uL Low 3.60-5.00 [facility] Serum or plasma albumin/glob ulin mass ratioOrdered By: Howard Golden on 01-30-2024 Albumin/Globulin [Mass ratio] 1.3 {ratio} [facility] Serum or plasma anion gap de terminationOrdered By: Howard Golden on 01-30-2024 Anion gap [Moles/Vol] 5.8 mmol/L Low 6.0-15.0 [facility] Sodium [Moles/volume] in Ser um or PlasmaOrdered By: Howard Golden on 01-30-2024 Sodium [Moles/Vol] 134 mmol/L Low 136-145 [facility] Urea nitrogen [Mass/volume] in Serum or PlasmaOrdered By: Howard Golden on 01-30-2024 Urea nitrogen [Mass/Vol] 17 mg/dL 7-25 [facility] WBC Auto (Bld) [#/Vol]Ordere d By: Howard Golden on 01-30-2024 WBC (Bld) [#/Vol] 11.4 10*3/uL 3.8-11.6 [facility] Magnesium [Mass/volume] in S nathan or PlasmaOrdered By: Howard Golden on 01-29-2024 Magnesium [Mass/Vol] 1.7 mg/dL Low 1.9-2.7 [facility] Phosphate [Mass/volume] in S nathan or PlasmaOrdered By: Howard Golden on 01-29-2024 Phosphate [Mass/Vol] 4.3 mg/dL 2.5-4.5 [facility] Activated partial thrombopla stin time (aPTT) in platelet poor plasma by coagulation aOrdered By: Danny Tripp on 01-28-2024 aPTT Coag (PPP) [Time] 26.6 s 25.1-36.5 [facility] Comment on above: A hematocrit value g reater than 55% may lead to inaccurate results in coagulation testing. Patients having hematocrit values >55% require a special collection tube for coagulation studies. Please contact the laboratory at [phone] for redraw instructions. Alanine aminotransferase [En zymatic activity/volume] in Serum or PlasmaOrdered By: Danny Tripp on 01-28-2024 ALT [Catalytic activity/Vol] 19 U/L 7-52 [facility] Albumin [Mass/volume] in Ser um or Plasma by Bromocresol green (BCG) dye binding methoOrdered By: Danny Tripp on 01-28-2024 Albumin BCG dye [Mass/Vol] 4.0 g/dL 3.5-5.7 [facility] Alkaline phosphatase [Enzyma tic activity/volume] in Serum or PlasmaOrdered By: Danny Tripp on 01-28-2024 ALP [Catalytic activity/Vol] 83 U/L 34-104 [facility] Amphetamine Screen Ql (U)Ord ered By: Danny Tripp on 01-28-2024 Amphetamines Ql (U) Negative Negative [facility] Aspartate aminotransferase [ Enzymatic activity/volume] in Serum or PlasmaOrdered By: Danny Tripp on 01-28-2024 AST [Catalytic activity/Vol] 24 U/L 13-39 [facility] Automated erythrocytes count in urine sediment (number/area)Ordered By: Danny Tripp on 01-28-2024 RBC Auto (Urine sed) [#/Area] 3-4 [HPF] 0-4 [facility] Automated leukocytes count i n urine sediment (number/area)Ordered By: Danny Tripp on 01-28-2024 WBC Auto (Urine sed) [#/Area] 20-49 [HPF] High 0-4 [facility] Automated urine sediment leticia cium oxalate crystal count by microscopy (number/high powOrdered By: Danny Tripp on 01-28-2024 Calcium oxalate crystals LM.HPF (Urine sed) [#/Area] 2+ [HPF] [facility] Barbiturates [Presence] in U rine by Screen methodOrdered By: Danny Tripp on 01-28-2024 Barbiturates Screen Ql (U) Negative Negative [facility] Basophils Auto (Bld) [#/Vol] Ordered By: Danny Tripp on 01-28-2024 Basophils (Bld) [#/Vol] 0.1 10*3/uL 0.0-0.2 [facility] Basophils/100 WBC Auto (Bld) Ordered By: Danny Tripp on 01-28-2024 Basophils/100 WBC (Bld) 1.2 % . [facility] Benzodiazepines Screen Ql (U )Ordered By: Danny Tripp on 01-28-2024 Benzodiazepines Ql (U) Negative Negative Fi [facility] Benzoylecgonine [Presence] i n Urine by Screen methodOrdered By: Danny Tripp on 01-28-2024 Benzoylecgonine Screen Ql (U) Negative Negative [facility] Bilirubin Test strip Ql (U)O rdered By: Danny Tripp on 01-28-2024 Bilirubin Ql (U) Negative Negative [facility] Bilirubin.total [Mass/volume ] in Serum or PlasmaOrdered By: Danny Tripp on 01-28-2024 Bilirubin [Mass/Vol] 0.5 mg/dL 0.3-1.0 [facility] Calcium [Mass/volume] in Ser um or PlasmaOrdered By: Danny Tripp on 01-28-2024 Calcium [Mass/Vol] 9.1 mg/dL 8.6-10.3 [facility] Cannabinoids [Presence] in U rine by Screen methodOrdered By: Danny Tripp on 01-28-2024 Cannabinoids Screen Ql (U) Negative Negative [facility] Comment on above: These are unconfirme d results and should not be used for legal purposes. Drug Cut-Off Concentration: AMPH 1000 ng/mL VLAD 200 ng/mL FRIEDA 200 ng/mL COCM 300 ng/mL OP 300 ng/mL PCP 25 ng/mL THC 20 ng/mL Carbon dioxide, total [Moles /volume] in Serum or PlasmaOrdered By: Danny Tripp on 01-28-2024 CO2 [Moles/Vol] 27.7 mmol/L 21.0-31.0 [facility] Chloride [Moles/volume] in S nathan or PlasmaOrdered By: Danny Tripp on 01-28-2024 Chloride [Moles/Vol] 101 mmol/L 98-107 [facility] Color Auto (U)Ordered By: Dimitri Tripp on 01-28-2024 Color (U) Yellow Yellow [facility] Creatinine [Mass/volume] in Serum or PlasmaOrdered By: Danny Tripp on 01-28-2024 Creatinine [Mass/Vol] 1.03 mg/dL 0.60-1.20 [facility] Eosinophils Auto (Bld) [#/Vo l]Ordered By: Danny Tripp on 01-28-2024 Eosinophils (Bld) [#/Vol] 0.3 10*3/uL 0.0-0.45 [facility] Eosinophils/100 WBC Auto (Bl d)Ordered By: Danny Tripp on 01-28-2024 Eosinophils/100 WBC (Bld) 2.8 % . [facility] Erythrocyte distribution wid th Auto (RBC) [Ratio]Ordered By: Danny Tripp on 01-28-2024 Erythrocyte distribution width (RBC) [Ratio] 13.8 % 11.9-15.3 [facility] Globulin Calc (S) [Mass/Vol] Ordered By: Danny Tripp on 01-28-2024 Globulin (S) [Mass/Vol] 3.1 g/dL [facility] Glucose [Mass/volume] in Ser um or PlasmaOrdered By: Danny Tripp on 01-28-2024 Glucose [Mass/Vol] 101 mg/dL 70-100 [facility] Comment on above: ADA recommended refe rence rangeRandom Glucose Reference Range is dependent on time and content of last meal. Glucose of more than 200 mg/dL in a nonstressed, ambulatory subject supports the diagnosis of Diabetes Mellitus. Hematocrit Auto (Bld) [Volum e fraction]Ordered By: Danny Tripp on 01-28-2024 Hematocrit (Bld) [Volume fraction] 41.1 % 34.0-46.4 [facility] Hemoglobin [Mass/volume] in BloodOrdered By: Danny Tripp on 01-28-2024 Hemoglobin (Bld) [Mass/Vol] 13.9 g/dL 11.8-15.4 [facility] INR in Platelet poor plasma by Coagulation assayOrdered By: Danny Tripp on 01-28-2024 INR Coag (PPP) [Relative time] 1.0 {INR} [facility] Comment on above: INR Therapeutic Rang e A) Pre- and Peroperative OAT started two weeks before surgery. NOT HIP SURGERY: 1.5 - 2.5 HIP SURGERY: 2 - 3B) Primary and secondary prevention of venous THROMBOSIS: 2 - 3C) Active venous thrombosis, pulmonary embolismand prevention of recurrent venous thrombosis: 2 - 3D) Prevention of arterial thromboembolismincluding patients with mechanical heart valves: 3 - 4.5 Ketones Auto test strip (U) [Mass/Vol]Ordered By: Danny Tripp on 01-28-2024 Ketones (U) [Mass/Vol] 1+ High Negative Fi [facility] Laboratory - UrinalysisOrder ed By: Danny Tripp on 01-28-2024 Hyaline casts LM Ql (Urine sed) 0-8 [LPF] 0-8 [facility] Leukocytes [#/volume] correc kyra for nucleated erythrocytes in Blood by Automated counOrdered By: Danny Tripp on 01-28-2024 WBC corrected for nucl RBC Auto (Bld) [#/Vol] 10.6 10*3/uL 3.8-11.6 [facility] Lymphocytes Auto (Bld) [#/Vo l]Ordered By: Danny Tripp on 01-28-2024 Lymphocytes (Bld) [#/Vol] 2.0 10*3/uL 1.00-4.8 [facility] Lymphocytes/100 WBC Auto (Bl d)Ordered By: Danny Tripp on 01-28-2024 Lymphocytes/100 WBC (Bld) 19.1 % . [facility] MCH Auto (RBC) [Entitic mass ]Ordered By: Danny Tripp on 01-28-2024 MCH (RBC) [Entitic mass] 29.8 pg 24.7-34.3 [facility] MCHC Auto (RBC) [Mass/Vol]Or dered By: Danny Tripp on 01-28-2024 MCHC (RBC) [Mass/Vol] 33.8 g/dL 32.0-35.0 [facility] MCV Auto (RBC) [Entitic vol] Ordered By: Danny Tripp on 01-28-2024 MCV (RBC) [Entitic vol] 88.1 fL 80-100 [facility] Monocyte distribution width [Entitic volume] in Blood by AutomatedOrdered By: Danny Tripp on 01-28-2024 Monocyte distribution width Auto (Bld) [Entitic vol] 18.35 % 0.00-20.00 [facility] Monocytes Auto (Bld) [#/Vol] Ordered By: Danny Tripp on 01-28-2024 Monocytes (Bld) [#/Vol] 0.7 10*3/uL 0.0-0.8 [facility] Monocytes/100 WBC Auto (Bld) Ordered By: Danny Tripp on 01-28-2024 Monocytes/100 WBC (Bld) 6.2 % . [facility] Neutrophils Auto (Bld) [#/Vo l]Ordered By: Danny Tripp on 01-28-2024 Neutrophils (Bld) [#/Vol] 7.5 10*3/uL 1.8-7.7 [facility] Neutrophils/100 WBC Auto (Bl d)Ordered By: Danny Tripp on 01-28-2024 Neutrophils/100 WBC (Bld) 70.7 % . [facility] Nitrite Test strip Ql (U)Ord ered By: Danny Tripp on 01-28-2024 Nitrite Ql (U) Negative Negative [facility] No Panel InformationOrdered By: Danny Tripp on 01-28-2024 0-8 [LPF] 0-8 [facility] Estimated GFR (CKD-EPI) 55.655 mL/Min [facility] Creatinine Clearance (Chem 46.53 [facility] Nucleated erythrocytes [Pres ence] in Blood by Automated countOrdered By: Danny Tripp on 01-28-2024 Nucleated RBC Auto Ql (Bld) 0.1 /100{WBC} 0-0.5 [facility] Opiates [Presence] in Urine by Screen methodOrdered By: Danny Tripp on 01-28-2024 Opiates Screen Ql (U) Positive High Negative [facility] Phencyclidine Screen Ql (U)O rdered By: Danny Tripp on 01-28-2024 Phencyclidine Ql (U) Negative Negative [facility] Platelet mean volume Auto (B ld) [Entitic vol]Ordered By: Danny Tripp on 01-28-2024 Platelet mean volume (Bld) [Entitic vol] 9.2 fL 6.3-10.7 [facility] Platelets Auto (Bld) [#/Vol] Ordered By: Danny Tripp on 01-28-2024 Platelets (Bld) [#/Vol] 193 10*3/uL 150-450 [facility] Potassium [Moles/volume] in Serum or PlasmaOrdered By: Danny Tripp on 01-28-2024 Potassium [Moles/Vol] 3.2 mmol/L 3.5-5.1 [facility] Protein Auto test strip (U) [Mass/Vol]Ordered By: Danny Tripp on 01-28-2024 Protein (U) [Mass/Vol] Negative Negative Fi [facility] Protein [Mass/volume] in Ser um or PlasmaOrdered By: Danny Tripp on 01-28-2024 Protein [Mass/Vol] 7.1 g/dL 6.4-8.9 [facility] Prothrombin time (PT)Ordered By: Danny Tripp on 01-28-2024 PT Coag (PPP) [Time] 11.4 s 9.0-12.9 [facility] Comment on above: A hematocrit value g reater than 55% may lead to inaccurate results in coagulation testing. Patients having hematocrit values >55% require a special collection tube for coagulation studies. Please contact the laboratory at [phone] for redraw instructions. RBC Auto (Bld) [#/Vol]Ordere d By: Danny Tripp on 01-28-2024 RBC (Bld) [#/Vol] 4.67 10*6/uL 3.60-5.00 [facility] Serum or plasma albumin/glob ulin mass ratioOrdered By: Danny Tripp on 01-28-2024 Albumin/Globulin [Mass ratio] 1.3 {ratio} [facility] Serum or plasma anion gap de terminationOrdered By: Danny Tripp on 01-28-2024 Anion gap [Moles/Vol] TNP [facility] Comment on above: Test not performed Sodium [Moles/volume] in Ser um or PlasmaOrdered By: Danny Tripp on 01-28-2024 Sodium [Moles/Vol] 136 mmol/L 136-145 [facility] Specific gravity Auto test s trip (U) [Rel density]Ordered By: Danny Tripp on 01-28-2024 Specific gravity (U) [Rel density] 1.019 1.001-1.03 0 [facility] Squamous epithelial cells de tection in urine sediment by light microscopyOrdered By: Danny Tripp on 01-28-2024 Epithelial cells.squamous LM Ql (Urine sed) 0-1 [HPF] 0-2 [facility] Urea nitrogen [Mass/volume] in Serum or PlasmaOrdered By: Danny Tripp on 01-28-2024 Urea nitrogen [Mass/Vol] 26 mg/dL 7-25 [facility] Urine bacteria detection by automated methodOrdered By: Danny Tripp on 01-28-2024 Bacteria Auto Ql (U) None seen [HPF] None Seen [facility] Urine clarity by refractomet ry automatedOrdered By: Danny Tripp on 01-28-2024 Clarity Refractometry automated (U) Cloudy Abnormal Clear [facility] Urine culture routineOrdered By: Danny Tripp on 01-28-2024 Bacteria identified Cx Nom (U) 2 Days [facility] Urine glucose measurement by automated test strip (mass/volume)Ordered By: Danny Tripp on 01-28-2024 Glucose Auto test strip (U) [Mass/Vol] Normal mg/dL Normal [facility] Urine hemoglobin detection b y automated test stripOrdered By: Danny Tripp on 01-28-2024 Hemoglobin Auto test strip Ql (U) 1+ High Negative [facility] Urine leukocyte esterase det ection by automated test stripOrdered By: Danny Tripp on 01-28-2024 Leukocyte esterase Auto test strip Ql (U) 3+ High Negative [facility] Urobilinogen Auto test strip (U) [Mass/Vol]Ordered By: Danny Tripp on 01-28-2024 Urobilinogen (U) [Mass/Vol] Normal mg/dL Normal [facility] WBC Auto (Bld) [#/Vol]Ordere d By: Danny Tripp on 01-28-2024 WBC (Bld) [#/Vol] 10.6 10*3/uL 3.8-11.6 [facility] Yeast detection in urine sed iment by light microscopyOrdered By: Danny Tripp on 01-28-2024 Yeast LM Ql (Urine sed) N/A [facility] pH Auto test strip (U)Ordere d By: Danny Tripp on 01-28-2024 pH (U) 5.5 [pH] 5.0-9.0 [facility] Alanine aminotransferase [En zymatic activity/volume] in Serum or PlasmaOrdered By: Avtar Barbosa on 12-24-2023 ALT [Catalytic activity/Vol] 8 U/L 7-52 [facility] Albumin [Mass/volume] in Ser um or Plasma by Bromocresol green (BCG) dye binding methoOrdered By: Avtar Barbosa on 12-24-2023 Albumin BCG dye [Mass/Vol] 3.7 g/dL 3.5-5.7 [facility] Alkaline phosphatase [Enzyma tic activity/volume] in Serum or PlasmaOrdered By: Avtar Barbosa on 12-24-2023 ALP [Catalytic activity/Vol] 72 U/L 34-104 [facility] Aspartate aminotransferase [ Enzymatic activity/volume] in Serum or PlasmaOrdered By: Avtar Barbosa on 12-24-2023 AST [Catalytic activity/Vol] 12 U/L Low 13-39 [facility] Basophils Auto (Bld) [#/Vol] Ordered By: Avtar Barbosa on 12-24-2023 Basophils (Bld) [#/Vol] 0.1 10*3/uL 0.0-0.2 [facility] Basophils/100 WBC Auto (Bld) Ordered By: Avtar Barbosa on 12-24-2023 Basophils/100 WBC (Bld) 0.7 % . [facility] Bilirubin.total [Mass/volume ] in Serum or PlasmaOrdered By: Avtar Barbosa on 12-24-2023 Bilirubin [Mass/Vol] 0.4 mg/dL 0.3-1.0 [facility] Calcium [Mass/volume] in Ser um or PlasmaOrdered By: Avtar Barbosa on 12-24-2023 Calcium [Mass/Vol] 8.9 mg/dL 8.6-10.3 [facility] Carbon dioxide, total [Moles /volume] in Serum or PlasmaOrdered By: Avtar Barbosa on 12-24-2023 CO2 [Moles/Vol] 31.0 mmol/L 21.0-31.0 [facility] Chloride [Moles/volume] in S nathan or PlasmaOrdered By: Avtar Barbosa on 12-24-2023 Chloride [Moles/Vol] 103 mmol/L 98-107 [facility] Creatinine [Mass/volume] in Serum or PlasmaOrdered By: Avtar Barbosa on 12-24-2023 Creatinine [Mass/Vol] 0.94 mg/dL 0.60-1.20 [facility] Eosinophils Auto (Bld) [#/Vo l]Ordered By: Avtar Barbosa on 12-24-2023 Eosinophils (Bld) [#/Vol] 0.3 10*3/uL 0.0-0.45 [facility] Eosinophils/100 WBC Auto (Bl d)Ordered By: Avtar Barbosa on 12-24-2023 Eosinophils/100 WBC (Bld) 3.8 % . [facility] Erythrocyte distribution wid th Auto (RBC) [Ratio]Ordered By: Avtar Barbosa on 12-24-2023 Erythrocyte distribution width (RBC) [Ratio] 13.8 % 11.9-15.3 [facility] Globulin Calc (S) [Mass/Vol] Ordered By: Avtar Barbosa on 12-24-2023 Globulin (S) [Mass/Vol] 2.1 g/dL [facility] Glucose [Mass/volume] in Ser um or PlasmaOrdered By: Avtar Barbosa on 12-24-2023 Glucose [Mass/Vol] 104 mg/dL High 70-100 [facility] Comment on above: ADA recommended refe rence rangeRandom Glucose Reference Range is dependent on time and content of last meal. Glucose of more than 200 mg/dL in a nonstressed, ambulatory subject supports the diagnosis of Diabetes Mellitus. Hematocrit Auto (Bld) [Volum e fraction]Ordered By: Avtar Barbosa on 12-24-2023 Hematocrit (Bld) [Volume fraction] 42.3 % 34.0-46.4 [facility] Hemoglobin [Mass/volume] in BloodOrdered By: Avtar Barbosa on 12-24-2023 Hemoglobin (Bld) [Mass/Vol] 14.1 g/dL 11.8-15.4 [facility] Leukocytes [#/volume] correc kyra for nucleated erythrocytes in Blood by Automated counOrdered By: Avtar Barbosa on 12-24-2023 WBC corrected for nucl RBC Auto (Bld) [#/Vol] 6.9 10*3/uL 3.8-11.6 [facility] Lymphocytes Auto (Bld) [#/Vo l]Ordered By: Avtar Barbosa on 12-24-2023 Lymphocytes (Bld) [#/Vol] 1.4 10*3/uL 1.00-4.8 [facility] Lymphocytes/100 WBC Auto (Bl d)Ordered By: Avtar Barbosa on 12-24-2023 Lymphocytes/100 WBC (Bld) 19.7 % . [facility] MCH Auto (RBC) [Entitic mass ]Ordered By: Avtar Barbosa on 12-24-2023 MCH (RBC) [Entitic mass] 29.4 pg 24.7-34.3 [facility] MCHC Auto (RBC) [Mass/Vol]Or dered By: Avtar Barbosa on 12-24-2023 MCHC (RBC) [Mass/Vol] 33.3 g/dL 32.0-35.0 [facility] MCV Auto (RBC) [Entitic vol] Ordered By: Avtar Barbosa on 12-24-2023 MCV (RBC) [Entitic vol] 88.3 fL 80-100 [facility] Monocytes Auto (Bld) [#/Vol] Ordered By: Avtar Barbosa on 12-24-2023 Monocytes (Bld) [#/Vol] 0.7 10*3/uL 0.0-0.8 [facility] Monocytes/100 WBC Auto (Bld) Ordered By: Avtar Barbosa on 12-24-2023 Monocytes/100 WBC (Bld) 9.8 % . [facility] Neutrophils Auto (Bld) [#/Vo l]Ordered By: Avtar Barbosa on 12-24-2023 Neutrophils (Bld) [#/Vol] 4.5 10*3/uL 1.8-7.7 [facility] Neutrophils/100 WBC Auto (Bl d)Ordered By: Avtar Barbosa on 12-24-2023 Neutrophils/100 WBC (Bld) 66.0 % . [facility] No Panel InformationOrdered By: Avtar Barbosa on 12-24-2023 Estimated GFR (CKD-EPI) > 60.0 mL/Min [facility] Creatinine Clearance (Chem 52.15 [facility] > 60.0 mL/Min [facility] 52.15 [facility] Nucleated erythrocytes [Pres ence] in Blood by Automated countOrdered By: Avtar Barbosa on 12-24-2023 Nucleated RBC Auto Ql (Bld) 0.1 /100{WBC} 0-0.5 [facility] Platelet mean volume Auto (B ld) [Entitic vol]Ordered By: Avtar Barbosa on 12-24-2023 Platelet mean volume (Bld) [Entitic vol] 8.9 fL 6.3-10.7 [facility] Platelets Auto (Bld) [#/Vol] Ordered By: Avtar Barbosa on 12-24-2023 Platelets (Bld) [#/Vol] 174 10*3/uL 150-450 [facility] Potassium [Moles/volume] in Serum or PlasmaOrdered By: Avtar Barbosa on 12-24-2023 Potassium [Moles/Vol] 3.8 mmol/L 3.5-5.1 [facility] Prealbumin [Mass/volume] in Serum or PlasmaOrdered By: Avtar Barbosa on 12-24-2023 Prealbumin [Mass/Vol] 23.0 mg/dL 17.0-34.0 [facility] Protein [Mass/volume] in Ser um or PlasmaOrdered By: Avtar Barbosa on 12-24-2023 Protein [Mass/Vol] 5.8 g/dL Low 6.4-8.9 [facility] RBC Auto (Bld) [#/Vol]Ordere d By: Avtar Barbosa on 12-24-2023 RBC (Bld) [#/Vol] 4.79 10*6/uL 3.60-5.00 [facility] Serum or plasma albumin/glob ulin mass ratioOrdered By: Avtar Barbosa on 12-24-2023 Albumin/Globulin [Mass ratio] 1.8 {ratio} [facility] Serum or plasma anion gap de terminationOrdered By: Avtar Barbosa on 12-24-2023 Anion gap [Moles/Vol] 8.8 mmol/L 6.0-15.0 [facility] Sodium [Moles/volume] in Ser um or PlasmaOrdered By: Avtar Barbosa on 12-24-2023 Sodium [Moles/Vol] 139 mmol/L 136-145 [facility] Urea nitrogen [Mass/volume] in Serum or PlasmaOrdered By: Avtar Barbosa on 12-24-2023 Urea nitrogen [Mass/Vol] 18 mg/dL 7-25 [facility] WBC Auto (Bld) [#/Vol]Ordere d By: Avtar Barbosa on 12-24-2023 WBC (Bld) [#/Vol] 6.9 10*3/uL 3.8-11.6 [facility] Basophils Auto (Bld) [#/Vol] Ordered By: Marcelle Gaston on 12-23-2023 Basophils (Bld) [#/Vol] 0.0 10*3/uL 0.0-0.2 [facility] Basophils/100 WBC Auto (Bld) Ordered By: Marcelle Gaston on 12-23-2023 Basophils/100 WBC (Bld) 0.5 % . [facility] Calcium [Mass/volume] in Ser um or PlasmaOrdered By: Marcelle Gaston on 12-23-2023 Calcium [Mass/Vol] 9.6 mg/dL 8.6-10.3 [facility] Carbon dioxide, total [Moles /volume] in Serum or PlasmaOrdered By: Marcelle Gaston on 12-23-2023 CO2 [Moles/Vol] 29.5 mmol/L 21.0-31.0 [facility] Chloride [Moles/volume] in S nathan or PlasmaOrdered By: Marcelle Gaston on 12-23-2023 Chloride [Moles/Vol] 102 mmol/L 98-107 [facility] Creatinine [Mass/volume] in Serum or PlasmaOrdered By: Marcelle Gaston on 12-23-2023 Creatinine [Mass/Vol] 0.81 mg/dL 0.60-1.20 [facility] Eosinophils Auto (Bld) [#/Vo l]Ordered By: Marcelle Gastno on 12-23-2023 Eosinophils (Bld) [#/Vol] 0.2 10*3/uL 0.0-0.45 [facility] Eosinophils/100 WBC Auto (Bl d)Ordered By: Marcelle Gaston on 12-23-2023 Eosinophils/100 WBC (Bld) 2.7 % . [facility] Erythrocyte distribution wid th Auto (RBC) [Ratio]Ordered By: Marcelle Gaston on 12-23-2023 Erythrocyte distribution width (RBC) [Ratio] 14.0 % 11.9-15.3 [facility] Glucose Glucometer (BldC) [M ass/Vol]Ordered By: Marcelle Gaston on 12-23-2023 Glucose [Mass/Vol] 100 mg/dL [facility] Comment on above: Random Glucose Refer ence Range is dependent on time and content of last meal. Glucose of more than 200 mg/dL in a nonstressed, ambulatory subject supports the diagnosis of Diabetes Mellitus. Glucose [Mass/volume] in Ser um or PlasmaOrdered By: Marcelle Gaston 12-23-2023 Glucose [Mass/Vol] 103 mg/dL High 70-100 [facility] Comment on above: ADA recommended refe rence rangeRandom Glucose Reference Range is dependent on time and content of last meal. Glucose of more than 200 mg/dL in a nonstressed, ambulatory subject supports the diagnosis of Diabetes Mellitus. Hematocrit Auto (Bld) [Volum e fraction]Ordered By: Marcelle Gaston on 12-23-2023 Hematocrit (Bld) [Volume fraction] 43.2 % 34.0-46.4 [facility] Hemoglobin [Mass/volume] in BloodOrdered By: Marcelle Gaston on 12-23-2023 Hemoglobin (Bld) [Mass/Vol] 14.2 g/dL 11.8-15.4 [facility] Leukocytes [#/volume] correc kyra for nucleated erythrocytes in Blood by Automated counOrdered By: Marcelle Gaston on 12-23-2023 WBC corrected for nucl RBC Auto (Bld) [#/Vol] 7.4 10*3/uL 3.8-11.6 [facility] Lymphocytes Auto (Bld) [#/Vo l]Ordered By: Marcelle Gaston on 12-23-2023 Lymphocytes (Bld) [#/Vol] 1.3 10*3/uL 1.00-4.8 [facility] Lymphocytes/100 WBC Auto (Bl d)Ordered By: Marcelle Gaston on 12-23-2023 Lymphocytes/100 WBC (Bld) 17.3 % . [facility] MCH Auto (RBC) [Entitic mass ]Ordered By: Marcelle Gaston on 12-23-2023 MCH (RBC) [Entitic mass] 29.0 pg 24.7-34.3 [facility] MCHC Auto (RBC) [Mass/Vol]Or dered By: Marcelle Gaston on 12-23-2023 MCHC (RBC) [Mass/Vol] 32.9 g/dL 32.0-35.0 [facility] MCV Auto (RBC) [Entitic vol] Ordered By: Marcelle Gaston on 12-23-2023 MCV (RBC) [Entitic vol] 88.0 fL 80-100 [facility] Monocytes Auto (Bld) [#/Vol] Ordered By: Marcelle Gaston on 12-23-2023 Monocytes (Bld) [#/Vol] 0.7 10*3/uL 0.0-0.8 [facility] Monocytes/100 WBC Auto (Bld) Ordered By: Marcelel Gaston on 12-23-2023 Monocytes/100 WBC (Bld) 8.9 % . [facility] Neutrophils Auto (Bld) [#/Vo l]Ordered By: Marcelle Gaston on 12-23-2023 Neutrophils (Bld) [#/Vol] 5.2 10*3/uL 1.8-7.7 [facility] Neutrophils/100 WBC Auto (Bl d)Ordered By: Marcelle Gaston on 12-23-2023 Neutrophils/100 WBC (Bld) 70.6 % . [facility] No Panel InformationOrdered By: Marcelle Gaston on 12-23-2023 Estimated GFR (CKD-EPI) > 60.0 mL/Min [facility] Creatinine Clearance (Chem 60.34 [facility] > 60.0 mL/Min [facility] 60.34 [facility] Nucleated erythrocytes [Pres ence] in Blood by Automated countOrdered By: Marcelle Gaston on 12-23-2023 Nucleated RBC Auto Ql (Bld) 0.1 /100{WBC} 0-0.5 [facility] Platelet mean volume Auto (B ld) [Entitic vol]Ordered By: Marcelle Gaston on 12-23-2023 Platelet mean volume (Bld) [Entitic vol] 8.8 fL 6.3-10.7 [facility] Platelets Auto (Bld) [#/Vol] Ordered By: Marcelle Gaston on 12-23-2023 Platelets (Bld) [#/Vol] 186 10*3/uL 150-450 [facility] Potassium [Moles/volume] in Serum or PlasmaOrdered By: Marcelle Gaston on 12-23-2023 Potassium [Moles/Vol] 3.7 mmol/L 3.5-5.1 [facility] RBC Auto (Bld) [#/Vol]Ordere d By: Marcelle Gaston on 12-23-2023 RBC (Bld) [#/Vol] 4.91 10*6/uL 3.60-5.00 [facility] Serum or plasma anion gap de terminationOrdered By: Marcelle Fultonsein on 12-23-2023 Anion gap [Moles/Vol] 12.2 mmol/L 6.0-15.0 [facility] Sodium [Moles/volume] in Ser um or PlasmaOrdered By: Marcelle Fultonsein on 12-23-2023 Sodium [Moles/Vol] 140 mmol/L 136-145 [facility] Urea nitrogen [Mass/volume] in Serum or PlasmaOrdered By: Yamark Gaston on 12-23-2023 Urea nitrogen [Mass/Vol] 13 mg/dL 7-25 [facility] WBC Auto (Bld) [#/Vol]Ordere d By: Marcelle Gaston on 12-23-2023 WBC (Bld) [#/Vol] 7.4 10*3/uL 3.8-11.6 [facility] Automated erythrocytes count in urine sediment (number/area)Ordered By: Kapil José on 12-22-2023 RBC Auto (Urine sed) [#/Area] None seen [HPF] 0-4 [facility] Automated leukocytes count i n urine sediment (number/area)Ordered By: Kapil José on 12-22-2023 WBC Auto (Urine sed) [#/Area] 3-4 [HPF] 0-4 [facility] Bilirubin Test strip Ql (U)O rdered By: Kapil José on 12-22-2023 Bilirubin Ql (U) Negative Negative [facility] Cholesterol [Mass/volume] in Serum or PlasmaOrdered By: Azar Plaza on 12-22-2023 Cholesterol [Mass/Vol] 204 mg/dL High 140-200 [facility] Comment on above: Chol less than 200 m g/dl low riskChol 201-239 mg/dl borderline riskChol 240 mg/dl and greater high risk Cholesterol in LDL Calc [Mas s/Vol]Ordered By: Azar Plaza on 12-22-2023 Cholesterol in LDL [Mass/Vol] 101 mg/dL High 0-100 [facility] Comment on above: LDL ATP III CLASSIFI CATIONLDL less than 100 mg/dL OptimalLDL 100-129 mg/dL Near or above optimalLDL 130-159 mg/dL Borderline highLDL 160-189 mg/dL HighLDL greater than 189 mg/dL Very high Cholesterol in VLDL Calc [Ma ss/Vol]Ordered By: Azar Plaza on 12-22-2023 Cholesterol in VLDL [Mass/Vol] 28 mg/dL [facility] Color Auto (U)Ordered By: Sean José on 12-22-2023 Color (U) Yellow Yellow [facility] Glucose mean value [Mass/vol ume] in Blood Estimated from glycated hemoglobinOrdered By: Azar Plaza on 12-22-2023 Average glucose Estimated from glycated hemoglobin (Bld) [Mass/Vol] 108 mg/dL [facility] Hemoglobin A1c percentageOrd ered By: Azar Plaza on 12-22-2023 HbA1c (Bld) [Mass fraction] 5.4 % 4.3-5.6 [facility] Comment on above: Increased risk for d iabetes: 5.7 - 6.4diabetes: >6.4glycemic control for adults with diabetes: <7.0 Ketones Auto test strip (U) [Mass/Vol]Ordered By: Kapil José on 12-22-2023 Ketones (U) [Mass/Vol] Negative Negative [facility] - UrinalysisOrder ed By: Kapil José on 12-22-2023 Hyaline casts LM Ql (Urine sed) None seen [LPF] 0-8 [facility] Nitrite Test strip Ql (U)Ord ered By: Kapil José on 12-22-2023 Nitrite Ql (U) Negative Negative [facility] No Panel InformationOrdered By: Marcelle Gaston on 12-22-2023 Bedside Glucose Comment Glu2: cleaned meter [facility] Glu2: cleaned meter [facility] No Panel InformationOrdered By: Kapil José on 12-22-2023 None seen [LPF] 0-8 [facility] Protein Auto test strip (U) [Mass/Vol]Ordered By: Kapil José on 12-22-2023 Protein (U) [Mass/Vol] Negative Negative [facility] Serum or plasma high density lipoprotein (HDL) cholesterol measurementOrdered By: Azar Plaza on 12-22-2023 Cholesterol in HDL [Mass/Vol] 75 mg/dL 23-92 [facility] Comment on above: HDL CHOL ATP-III CLA SSIFICATION Cardiovascular RiskHDL > or equal to 60 mg/dL LOWHDL < 40 mg/dL HIGH Serum or plasma total choles terol/high density lipoprotein (HDL) cholesterol mass ratOrdered By: Azar Plaza on 12-22-2023 Cholesterol.total/Chol esterol in HDL [Mass ratio] 2.7 {ratio} <5.0 [facility] Specific gravity Auto test s trip (U) [Rel density]Ordered By: Kapil José on 12-22-2023 Specific gravity (U) [Rel density] 1.042 High 1.001-1.03 0 [facility] Squamous epithelial cells de tection in urine sediment by light microscopyOrdered By: Kapil José on 12-22-2023 Epithelial cells.squamous LM Ql (Urine sed) None seen [HPF] 0-2 [facility] Triglyceride [Mass/volume] i n Serum or PlasmaOrdered By: Azar Plaza on 12-22-2023 Triglyceride [Mass/Vol] 140 mg/dL 0-149 [facility] Comment on above: TRIG ATP III CLASSIF ICATIONTRIG less than 150 mg/dL NormalTRIG 150-199 mg/dL Borderline highTRIG 200-500 mg/dL High TRIG greater than 500 mg/dL Very highStandard traceable to the Center for Disease Conrtrol and Prevention (CDC) test method. Urine bacteria detection by automated methodOrdered By: Kapil José on 12-22-2023 Bacteria Auto Ql (U) None seen None Seen [facility] Urine clarity by refractomet ry automatedOrdered By: aKpil José on 12-22-2023 Clarity Refractometry automated (U) Clear Clear [facility] Urine glucose measurement by automated test strip (mass/volume)Ordered By: Kapil José on 12-22-2023 Glucose Auto test strip (U) [Mass/Vol] Normal mg/dL Normal [facility] Urine hemoglobin detection b y automated test stripOrdered By: Kapil José on 12-22-2023 Hemoglobin Auto test strip Ql (U) Negative Negative [facility] Urine leukocyte esterase det ection by automated test stripOrdered By: Kapil José on 12-22-2023 Leukocyte esterase Auto test strip Ql (U) 1+ High Negative [facility] Urobilinogen Auto test strip (U) [Mass/Vol]Ordered By: Kapil José on 12-22-2023 Urobilinogen (U) [Mass/Vol] Normal mg/dL Normal [facility] pH Auto test strip (U)Ordere d By: Kapil José on 12-22-2023 pH (U) 5.5 [pH] 5.0-9.0 [facility] Activated partial thrombopla stin time (aPTT) in platelet poor plasma by coagulation aOrdered By: Kapil José on 12-21-2023 aPTT Coag (PPP) [Time] 29.1 s 25.1-36.5 [facility] Comment on above: A hematocrit value g reater than 55% may lead to inaccurate results in coagulation testing. Patients having hematocrit values >55% require a special collection tube for coagulation studies. Please contact the laboratory at [phone] for redraw instructions. Basophils Auto (Bld) [#/Vol] Ordered By: Kapil José on 12-21-2023 Basophils (Bld) [#/Vol] 0.1 10*3/uL 0.0-0.2 [facility] Basophils/100 WBC Auto (Bld) Ordered By: Kapil José on 12-21-2023 Basophils/100 WBC (Bld) 1.2 % . [facility] Calcium [Mass/volume] in Ser um or PlasmaOrdered By: Kapil José on 12-21-2023 Calcium [Mass/Vol] 9.6 mg/dL 8.6-10.3 [facility] Carbon dioxide, total [Moles /volume] in Serum or PlasmaOrdered By: Kapil José on 12-21-2023 CO2 [Moles/Vol] 27.8 mmol/L 21.0-31.0 [facility] Chloride [Moles/volume] in S nathan or PlasmaOrdered By: Kapil José on 12-21-2023 Chloride [Moles/Vol] 100 mmol/L 98-107 [facility] Creatine kinase [Enzymatic a ctivity/volume] in Serum or PlasmaOrdered By: Kapil José on 12-21-2023 CK [Catalytic activity/Vol] 91 U/L 30-223 [facility] Creatinine [Mass/volume] in Serum or PlasmaOrdered By: Kapil José on 12-21-2023 Creatinine [Mass/Vol] 1.13 mg/dL 0.60-1.20 [facility] Eosinophils Auto (Bld) [#/Vo l]Ordered By: Kapil José on 12-21-2023 Eosinophils (Bld) [#/Vol] 0.3 10*3/uL 0.0-0.45 [facility] Eosinophils/100 WBC Auto (Bl d)Ordered By: Kapil José on 12-21-2023 Eosinophils/100 WBC (Bld) 3.9 % . [facility] Erythrocyte distribution wid th Auto (RBC) [Ratio]Ordered By: Kapil José on 12-21-2023 Erythrocyte distribution width (RBC) [Ratio] 14.2 % 11.9-15.3 [facility] Glucose Glucometer (BldC) [M ass/Vol]Ordered By: Kapil José on 12-21-2023 Glucose [Mass/Vol] 92 mg/dL [facility] Comment on above: Random Glucose Refer ence Range is dependent on time and content of last meal. Glucose of more than 200 mg/dL in a nonstressed, ambulatory subject supports the diagnosis of Diabetes Mellitus. Glucose [Mass/volume] in Ser um or PlasmaOrdered By: Kapil José on 12-21-2023 Glucose [Mass/Vol] 99 mg/dL 70-100 [facility] Comment on above: ADA recommended refe rence rangeRandom Glucose Reference Range is dependent on time and content of last meal. Glucose of more than 200 mg/dL in a nonstressed, ambulatory subject supports the diagnosis of Diabetes Mellitus. Hematocrit Auto (Bld) [Volum e fraction]Ordered By: Kapil José on 12-21-2023 Hematocrit (Bld) [Volume fraction] 44.5 % 34.0-46.4 [facility] Hemoglobin [Mass/volume] in BloodOrdered By: Kapil José on 12-21-2023 Hemoglobin (Bld) [Mass/Vol] 14.7 g/dL 11.8-15.4 [facility] INR in Platelet poor plasma by Coagulation assayOrdered By: Kapil José on 12-21-2023 INR Coag (PPP) [Relative time] 0.9 {INR} [facility] Comment on above: INR Therapeutic Rang e A) Pre- and Peroperative OAT started two weeks before surgery. NOT HIP SURGERY: 1.5 - 2.5 HIP SURGERY: 2 - 3B) Primary and secondary prevention of venous THROMBOSIS: 2 - 3C) Active venous thrombosis, pulmonary embolismand prevention of recurrent venous thrombosis: 2 - 3D) Prevention of arterial thromboembolismincluding patients with mechanical heart valves: 3 - 4.5 Leukocytes [#/volume] correc kyra for nucleated erythrocytes in Blood by Automated counOrdered By: Kapil José on 12-21-2023 WBC corrected for nucl RBC Auto (Bld) [#/Vol] 8.5 10*3/uL 3.8-11.6 [facility] Lymphocytes Auto (Bld) [#/Vo l]Ordered By: Kapil José on 12-21-2023 Lymphocytes (Bld) [#/Vol] 1.9 10*3/uL 1.00-4.8 [facility] Lymphocytes/100 WBC Auto (Bl d)Ordered By: Kapil José on 12-21-2023 Lymphocytes/100 WBC (Bld) 22.6 % . [facility] MCH Auto (RBC) [Entitic mass ]Ordered By: Kapil José on 12-21-2023 MCH (RBC) [Entitic mass] 29.0 pg 24.7-34.3 [facility] MCHC Auto (RBC) [Mass/Vol]Or dered By: Kapil José on 12-21-2023 MCHC (RBC) [Mass/Vol] 32.9 g/dL 32.0-35.0 [facility] MCV Auto (RBC) [Entitic vol] Ordered By: Kapil José on 12-21-2023 MCV (RBC) [Entitic vol] 88.0 fL 80-100 [facility] Monocyte distribution width [Entitic volume] in Blood by AutomatedOrdered By: Kapil José on 12-21-2023 Monocyte distribution width Auto (Bld) [Entitic vol] 16.85 % 0.00-20.00 [facility] Monocytes Auto (Bld) [#/Vol] Ordered By: Kapil José on 12-21-2023 Monocytes (Bld) [#/Vol] 0.8 10*3/uL 0.0-0.8 [facility] Monocytes/100 WBC Auto (Bld) Ordered By: Kapil José on 12-21-2023 Monocytes/100 WBC (Bld) 9.0 % . [facility] Neutrophils Auto (Bld) [#/Vo l]Ordered By: Kapil José on 12-21-2023 Neutrophils (Bld) [#/Vol] 5.4 10*3/uL 1.8-7.7 [facility] Neutrophils/100 WBC Auto (Bl d)Ordered By: Kapil José on 12-21-2023 Neutrophils/100 WBC (Bld) 63.3 % . [facility] No Panel InformationOrdered By: Kapil José on 12-21-2023 Estimated GFR (CKD-EPI) 49.798 mL/Min [facility] Creatinine Clearance (Chem 43.28 [facility] Nucleated erythrocytes [Pres ence] in Blood by Automated countOrdered By: Kapil José on 12-21-2023 Nucleated RBC Auto Ql (Bld) 0.1 /100{WBC} 0-0.5 [facility] Platelet mean volume Auto (B ld) [Entitic vol]Ordered By: Kapil José on 12-21-2023 Platelet mean volume (Bld) [Entitic vol] 8.6 fL 6.3-10.7 [facility] Platelets Auto (Bld) [#/Vol] Ordered By: Kapil José on 12-21-2023 Platelets (Bld) [#/Vol] 212 10*3/uL 150-450 [facility] Potassium [Moles/volume] in Serum or PlasmaOrdered By: Kapil José on 12-21-2023 Potassium [Moles/Vol] 3.6 mmol/L 3.5-5.1 [facility] Prothrombin time (PT)Ordered By: Kapil José on 12-21-2023 PT Coag (PPP) [Time] 10.2 s 9.0-12.9 [facility] Comment on above: A hematocrit value g reater than 55% may lead to inaccurate results in coagulation testing. Patients having hematocrit values >55% require a special collection tube for coagulation studies. Please contact the laboratory at [phone] for redraw instructions. RBC Auto (Bld) [#/Vol]Ordere d By: Kapil José on 12-21-2023 RBC (Bld) [#/Vol] 5.06 10*6/uL 3.60-5.00 [facility] Serum or plasma anion gap de terminationOrdered By: Kapil José on 12-21-2023 Anion gap [Moles/Vol] 12.8 mmol/L 6.0-15.0 [facility] Sodium [Moles/volume] in Ser um or PlasmaOrdered By: Kapil José on 12-21-2023 Sodium [Moles/Vol] 137 mmol/L 136-145 [facility] Troponin I.cardiac [Mass/vol ume] in Serum or Plasma by Detection limit <= 0.01 ng/Ordered By: Kapil José on 12-21-2023 Troponin I.cardiac DL <= 0.01 ng/mL [Mass/Vol] 6.8 pg/mL 0.0-15.0 [facility] Urea nitrogen [Mass/volume] in Serum or PlasmaOrdered By: Kapil José on 12-21-2023 Urea nitrogen [Mass/Vol] 28 mg/dL 7- [facility] WBC Auto (Bld) [#/Vol]Ordere d By: Kapil José on 12-21-2023 WBC (Bld) [#/Vol] 8.5 10*3/uL 3.8-11.6 [facility] Vital Signs Date Time Vital Sign Value Performing Clinician Faci lity 06-14-2025 08:00-0400 Body temperature 98.4 [degF] Hannah Gruber MD Work Phone: [facility] 06-14-2025 08:00-0400 Diastolic blood pressure 75 mm[Hg] Hannah Gruber MD Work Phone: [facility] 06-14-2025 08:00-0400 Heart rate 94 /min Hannah Gruber MD Work Phone: [facility] 06-14-2025 08:00-0400 Respiratory rate 18 /min Hannah Gruber MD Work Phone: [facility] 06-14-2025 08:00-0400 SaO2% (BldA) [Mass fraction] 94 % Hannah Gruber MD Work Phone: [facility] 06-14-2025 08:00-0400 Systolic blood pressure 118 mm[Hg] Hannah Gruber MD Work Phone: [facility] 06-12-2025 06:00-0400 Body weight 82.7 kg Hannah Gruber MD Work Phone: [facility] 06-08-2025 14:14-0400 Body height 162.56 cm Hannah Gruber MD Work Phone: [facility] 06-07-2025 15:14-0400 Body temperature 98.2 [degF] Zandra Jung M D Work Phone: [facility] 06-07-2025 15:14-0400 Diastolic blood pressure 58 mm[Hg] Zandra Jung MD Work Phone: [facility] 06-07-2025 15:14-0400 Heart rate 80 /min Zandra Jung M D Work Phone: [facility] 06-07-2025 15:14-0400 Respiratory rate 16 /min Zandra Jordanqar M D Work Phone: [facility] 06-07-2025 15:14-0400 SaO2% (BldA) [Mass fraction] 96 % Zandra Jung MD Work Phone: [facility] 06-07-2025 15:14-0400 Systolic blood pressure 152 mm[Hg] Zandra Jung MD Work Phone: [facility] 06-06-2025 06:00-0400 Body weight 80.7 kg Zandra Jung M D Work Phone: [facility] 02-11-2024 10:00-0400 Body temperature 98.1 [degF] MD Hannah Gruber Work Phone: [facility] 02-11-2024 10:00-0400 Diastolic blood pressure 82 mm[Hg] MD Hannah Gruber Work Phone: [facility] 02-11-2024 10:00-0400 Heart rate 95 /min MD Hannah Gruber Work Phone: [facility] 02-11-2024 10:00-0400 Respiratory rate 16 /min MD Hannah Gruber Work Phone: [facility] 02-11-2024 10:00-0400 SaO2% (BldA) [Mass fraction] 97 % MD Hannah Gruber Work Phone: [facility] 02-11-2024 10:00-0400 Systolic blood pressure 131 mm[Hg] MD Hannah Gruber Work Phone: [facility] 02-11-2024 06:00-0400 Body weight 84.5 kg MD Hannah Gruber Work Phone: [facility] 02-06-2024 10:20-0400 Body height 162.56 cm MD Hannah Gruber Work Phone: [facility] 02-03-2024 08:00-0400 Inhaled oxygen flow rate 1 L/min MD Hannah Gruber Work Phone: [facility] 01-30-2024 12:10-0400 Inhaled oxygen flow rate 2 L/min MD Hannah Gruber Work Phone: [facility] 01-30-2024 10:47-0400 Diastolic blood pressure 77 mm[Hg] MD Hannah Gruber Work Phone: [facility] 01-30-2024 10:47-0400 Heart rate 99 /min MD Hannah Gruber Work Phone: [facility] 01-30-2024 10:47-0400 Respiratory rate 18 /min MD Hannah Gruber Work Phone: [facility] 01-30-2024 10:47-0400 SaO2% (BldA) [Mass fraction] 94 % MD Hannah Gruber Work Phone: [facility] 01-30-2024 10:47-0400 Systolic blood pressure 150 mm[Hg] MD Hannah Gruber Work Phone: [facility] 01-30-2024 08:00-0400 Body temperature 98.2 [degF] MD Hannah Gruber Work Phone: [facility] 01-29-2024 10:28-0400 Body height 162.56 cm MD Hannah Gruber Work Phone: [facility] 01-29-2024 10:28-0400 Body mass index (BMI) [Ratio] 32.1 kg/m2 MD Hannah Gruber Work Phone: [facility] 01-29-2024 10:28-0400 Body weight 84.9 kg MD Hannah Gruber Work Phone: [facility] 01-29-2024 00:10-0400 Inhaled oxygen flow rate 3 L/min MD Hannah Gruber Work Phone: [facility] 01-28-2024 23:53-0400 Body height 162.56 cm MD Hannah Gruber Work Phone: [facility] 01-28-2024 23:53-0400 Body temperature 98 [degF] MD Hannah Gruber Work Phone: [facility] 01-28-2024 23:53-0400 Body weight 84.9 kg MD Hannah Gruber Work Phone: [facility] 01-28-2024 23:53-0400 Diastolic blood pressure 83 mm[Hg] MD Hannah Gruber Work Phone: [facility] 01-28-2024 23:53-0400 Heart rate 91 /min MD Hannah Gruber Work Phone: [facility] 01-28-2024 23:53-0400 Respiratory rate 16 /min MD Hannah Gruber Work Phone: [facility] 01-28-2024 23:53-0400 SaO2% (BldA) [Mass fraction] 95 % MD Hannah Gruber Work Phone: [facility] 01-28-2024 23:53-0400 Systolic blood pressure 157 mm[Hg] MD Hannah Gruber Work Phone: [facility] 01-01-2024 10:12-0400 Body temperature 97.5 [degF] MD Hannah Gruber Work Phone: [facility] 01-01-2024 10:12-0400 Diastolic blood pressure 82 mm[Hg] MD Hannah Gruber Work Phone: [facility] 01-01-2024 10:12-0400 Heart rate 86 /min MD Hannah Gruber Work Phone: [facility] 01-01-2024 10:12-0400 Respiratory rate 16 /min MD Hannah Gruber Work Phone: [facility] 01-01-2024 10:12-0400 SaO2% (BldA) [Mass fraction] 96 % MD Hannah Gruber Work Phone: [facility] 01-01-2024 10:12-0400 Systolic blood pressure 150 mm[Hg] MD Hannah Gruber Work Phone: [facility] 12-30-2023 11:58-0400 Body height 162.56 cm MD Hannah Gruber Work Phone: [facility] 12-28-2023 06:00-0400 Body weight 85.1 kg MD Hannah Gruber Work Phone: [facility] 12-23-2023 16:00-0400 Body temperature 98.2 [degF] MD Hannah Gruber Work Phone: [facility] 12-23-2023 16:00-0400 Diastolic blood pressure 87 mm[Hg] MD Hannah Gruber Work Phone: [facility] 12-23-2023 16:00-0400 Heart rate 85 /min MD Hannah Gruber Work Phone: [facility] 12-23-2023 16:00-0400 Respiratory rate 16 /min MD Hannah Gruber Work Phone: [facility] 12-23-2023 16:00-0400 SaO2% (BldA) [Mass fraction] 98 % MD Hannah Gruber Work Phone: [facility] 12-23-2023 16:00-0400 Systolic blood pressure 168 mm[Hg] MD Hannah Gruber Work Phone: [facility] 12-23-2023 06:00-0400 Body weight 84.8 kg MD Hannah Gruber Work Phone: [facility] 12-22-2023 14:48-0400 Body height 162.56 cm MD Hannah Gruber Work Phone: [facility] 12-22-2023 14:00-0400 Body temperature 98.4 [degF] MD Hannah Gruber Work Phone: [facility] 12-22-2023 14:00-0400 Body weight 84.9 kg MD Hannah Gruber Work Phone: [facility] 12-22-2023 14:00-0400 Diastolic blood pressure 130 mm[Hg] MD Hannah Gruber Work Phone: [facility] 12-22-2023 14:00-0400 Heart rate 80 /min MD Hannah Gruber Work Phone: [facility] 12-22-2023 14:00-0400 Respiratory rate 16 /min MD Hannah Gruber Work Phone: [facility] 12-22-2023 14:00-0400 SaO2% (BldA) [Mass fraction] 93 % MD Hannah Gruber Work Phone: [facility] 12-22-2023 14:00-0400 Systolic blood pressure 164 mm[Hg] MD Hannah Gruber Work Phone: [facility] Encounters Encounter Date Encounter Type Care Provider Facility Start: 06-24-2025 ambulatory Avtar Barbosa MD Facility:[facility] Start: 06-17-2025 End: 06-17-2025 ambulatory Hannah Gruber Facility:[facility] Start: 06-16-2025 End: 06-16-2025 [facility] Start: 06-07-2025 Non-patient / Non-visit Christiano Bourgeois MD -[facility] Work Phone: Start: 06-07-2025 End: 06-14-2025 Evaluation and management of inpatient Ban Reed Facility:[facility] Start: 05-30-2025 End: 06-07-2025 Evaluation and management of inpatient Zandra Jung MD Work Phone: [id number] Comment on above: Cerebrovascular acci dent (CVA), unspecified mechanism (HCC) (Primary Dx); Cardiomyopathy, unspecified type (HCC); Chest pain, unspecified type Start: 05-30-2025 Emergency department patient visit Hannah Gruber Facility:[facility] Start: 05-30-2025 ambulatory [facility] Start: 05-06-2025 ambulatory [facility] Start: 04-22-2025 ambulatory [facility] Start: 02-28-2025 End: 02-28-2025 ambulatory M[facility] Start: 02-24-2025 ambulatory Hannah Gruber Facility:[facility] Start: 02-07-2025 ambulatory [facility] Start: 02-04-2025 End: 02-04-2025 ambulatory Hannah Gruber Facility:[facility] Start: 01-31-2025 End: 01-31-2025 ambulatory [facility] Start: 01-20-2025 ambulatory Hannah Klaege Facility:[facility] Start: 01-20-2025 End: 01-20-2025 ambulatory Hannah Klaege Facility:[facility] Start: 01-03-2025 End: 01-03-2025 ambulatory Hannah Klaege Facility:[facility] Start: 12-30-2024 ambulatory [facility] Start: 12-01-2024 End: 12-01-2024 ambulatory IRMA ROLLINS Not Available Start: 10-26-2024 ambulatory [facility] Start: 10-15-2024 End: 10-15-2024 ambulatory Hannah Klaetess Facility:[facility] Start: 10-04-2024 ambulatory [facility] Start: 09-08-2024 ambulatory [facility] Start: 09-06-2024 End: 09-06-2024 ambulatory [facility] Start: 09-03-2024 ambulatory [facility] Start: 08-23-2024 ambulatory [facility] Start: 08-09-2024 ambulatory [facility] Start: 07-16-2024 End: 07-16-2024 ambulatory Hannah Klaetess Facility:[facility] Start: 07-16-2024 End: 07-16-2024 ambulatory Hannah Klaetess Facility:[facility] Start: 07-09-2024 End: 07-09-2024 ambulatory [facility] Start: 07-08-2024 End: 07-08-2024 ambulatory Hannah Klaege Facility:[facility] Start: 07-08-2024 End: 07-08-2024 ambulatory Hannah Klaege Facility:[facility] Start: 06-29-2024 End: 06-29-2024 ambulatory MD Hannah Gruber Work Phone: [facility] Work Phone: Start: 06-29-2024 End: 06-29-2024 Patient encounter procedure MD Hannah Gruber Work Phone: [facility] Work Phone: Start: 06-29-2024 End: 06-29-2024 Patient encounter procedure MD Hannah Gruber Work Phone: [facility] Start: 06-29-2024 End: 06-29-2024 ambulatory MD Hannah Gruber Work Phone: [facility] Work Phone: Start: 06-18-2024 End: 06-18-2024 ambulatory [facility] Start: 05-25-2024 End: 05-25-2024 ambulatory MD Hannah Gruber Work Phone: [facility] Work Phone: Start: 05-25-2024 End: 05-25-2024 Patient encounter procedure MD Hannah Gruber Work Phone: [facility] Start: 04-23-2024 End: 04-23-2024 ambulatory MD Hannah Gruber Work Phone: [facility] Work Phone: Start: 04-23-2024 End: 04-23-2024 Patient encounter procedure MD Hannah Gruber Work Phone: [facility] Work Phone: Start: 04-14-2024 End: 04-14-2024 ambulatory SHAILA HICKS Not Available Start: 03-19-2024 End: 03-19-2024 ambulatory MD Hannah Gruber Work Phone: [facility] Work Phone: Start: 03-19-2024 End: 03-19-2024 Patient encounter procedure MD Hannah Gruber Work Phone: [facility] Work Phone: Start: 03-19-2024 End: 03-19-2024 MD Hannah Gruber Work Phone: [facility] Work Phone: Start: 02-20-2024 End: 02-20-2024 ambulatory MD Hannah Gruber Work Phone: [facility] Work Phone: Start: 02-20-2024 End: 02-20-2024 Patient encounter procedure MD Hannah Gruber Work Phone: [facility] Work Phone: Start: 02-20-2024 End: 02-20-2024 MD Hannah Gruber Work Phone: [facility] Work Phone: Start: 02-07-2024 End: 02-11-2024 Non-patient / Non-visit MD Hannah Gruber Work Phone: [facility] Work Phone: Start: 02-07-2024 End: 02-11-2024 MD Hannah Gruber Work Phone: [facility] Work Phone: Start: 01-31-2024 End: 02-11-2024 Non-patient / Non-visit MD Hannah Gruber Work Phone: [facility] Work Phone: Start: 01-31-2024 End: 02-11-2024 MD Hannah Grubre Work Phone: [facility] Work Phone: Start: 01-31-2024 End: 02-11-2024 Non-patient / Non-visit MD Hannah Gruber Work Phone: [facility] Work Phone: Start: 01-31-2024 End: 02-11-2024 MD Hannah Gruber Work Phone: [facility] Work Phone: Start: 01-30-2024 End: 02-11-2024 Non-patient / Non-visit MD Hannah Gruber Work Phone: [facility] Work Phone: Start: 01-30-2024 End: 02-11-2024 MD Hannah Gruber Work Phone: [facility] [facility] Work Phone: Start: 01-30-2024 End: 02-11-2024 Evaluation and management of inpatient MD Hannah Gruber Work Phone: [facility] Work Phone: Start: 01-30-2024 End: 02-11-2024 MD Hannah Gruber Work Phone: [facility] Work Phone: Start: 01-30-2024 End: 01-30-2024 Non-patient / Non-visit MD Hannah Gruber Work Phone: [facility] Work Phone: Start: 01-30-2024 End: 01-30-2024 MD Hannah Gruber Work Phone: [facility] Work Phone: Start: 01-29-2024 End: 01-30-2024 Non-patient / Non-visit MD Hannah Gruber Work Phone: [facility] Work Phone: Start: 01-29-2024 End: 01-30-2024 MD Hannah Gruber Work Phone: [facility] Work Phone: Start: 01-28-2024 End: 01-30-2024 Evaluation and management of inpatient MD Hannah Gruber Work Phone: [facility] Work Phone: Start: 01-28-2024 End: 01-30-2024 MD Hannah Gruber Work Phone: [facility] Work Phone: Start: 01-20-2024 End: 01-20-2024 ambulatory SHAILA HICKS Not Available Start: 12-31-2023 End: 01-01-2024 Non-patient / Non-visit MD Hannah Gruber Work Phone: [facility] Work Phone: Start: 12-31-2023 End: 01-01-2024 MD Hannah Gruber Work Phone: [facility] Work Phone: Start: 12-24-2023 End: 01-01-2024 Non-patient / Non-visit MD Hannah Gruber Work Phone: [facility] Work Phone: Start: 12-24-2023 End: 01-01-2024 MD Hannah Gruber Work Phone: [facility] Work Phone: Start: 12-24-2023 End: 01-01-2024 Non-patient / Non-visit MD Hannah Gruber Work Phone: [facility] Work Phone: Start: 12-24-2023 End: 01-01-2024 MD Hannah Gruber Work Phone: [facility] Work Phone: Start: 12-23-2023 End: 01-01-2024 Evaluation and management of inpatient MD Hannah Gruber Work Phone: [facility] Work Phone: Start: 12-23-2023 End: 01-01-2024 MD Hannah Gruber Work Phone: [facility] Work Phone: Start: 12-22-2023 End: 12-23-2023 MD Hannah Gruber Work Phone: [facility] Work Phone: Start: 12-22-2023 End: 12-23-2023 Non-patient / Non-visit MD Hannah Gruber Work Phone: [facility] Work Phone: Start: 12-22-2023 End: 12-23-2023 Non-patient / Non-visit MD Hannah Gruber Work Phone: [facility] Work Phone: Start: 12-22-2023 End: 12-23-2023 MD Hannah Gruber Work Phone: [facility] Work Phone: Start: 12-22-2023 Emergency department patient visit [facility] Start: 12-21-2023 End: 12-23-2023 Non-patient / Non-visit MD Hannah Gruber Work Phone: [facility] Phys[facility] Work Phone: Start: 12-21-2023 End: 12-23-2023 Evaluation and management of inpatient MD Hannah Gruber Work Phone: [facility] Work Phone: Start: 12-21-2023 End: 12-23-2023 MD Hannah Gruber Work Phone: [facility] Work Phone: Procedures Date Procedure Procedure Detail Performing Clinician Start: 06-07-2025 Basic metabolic pane l calcium total Gul E Rosa Hernandez DO Work Phone: Start: 06-06-2025 Ct head/brain w/o co ntrast material Edis Murillo MD Work Phone: Start: 06-06-2025 ANTI-XA, HEPARIN Regan Burdick MD Work Phone: Start: 06-06-2025 ANTI-XA, HEPARIN Regan Burdick MD Work Phone: Start: 06-06-2025 Basic metabolic pane l calcium total Gul E Rosa Hernandez DO Work Phone: Start: 06-05-2025 ANTI-XA, HEPARIN Regan Burdick MD Work Phone: Start: 06-05-2025 ANTI-XA, HEPARIN Regan Burdick MD Work Phone: Start: 06-05-2025 Blood count complete automated Regan Burdick MD Work Phone: Start: 06-05-2025 Ct head/brain w/o co ntrast material Regan Burdick MD Work Phone: Start: 06-04-2025 Blood count complete automated Omar Falk MD Work Phone: Start: 06-03-2025 Thromboplastin time partial plasma/whole blood Omar Falk MD Work Phone: Start: 06-02-2025 Echo tthrc r-t 2d w/wom-mode compl spec&colr d Omar Falk MD Work Phone: Start: 06-02-2025 Thromboplastin time partial plasma/whole blood Omar Falk MD Work Phone: Start: 06-02-2025 BASIC METABOLIC PANE L W/ REFLEX TO MG FOR LOW K Ginger Andrew APRN - COMMERCIAL REPORTER Work Phone: Start: 06-02-2025 Blood count complete automated Omar Falk MD Work Phone: Start: 06-02-2025 Thromboplastin time partial plasma/whole blood Omar Falk MD Work Phone: Start: 06-01-2025 PREVIOUS SPECIMEN Kendy Hernandez DO Work Phone: Start: 06-01-2025 Thromboplastin time partial plasma/whole blood Kendy Hernandez DO Work Phone: Start: 06-01-2025 Radiologic exam ches t single view Kendy Hernandez DO Work Phone: Start: 06-01-2025 Ct head/brain w/o co ntrast material Edis Murillo MD Work Phone: Start: 06-01-2025 BASIC METABOLIC PANE L W/ REFLEX TO MG FOR LOW K Ginger Andrew APRN - COMMERCIAL REPORTER Work Phone: Start: 06-01-2025 Hemoglobin glycosylated a1c Ginger Andrew APRN - COMMERCIAL REPORTER Work Phone: Start: 06-01-2025 Lipid panel Ginger Ramon ra FAMILY INTERVENTION SPECIALIST - COMMERCIAL REPORTER Work Phone: Start: 05-31-2025 Assay of troponin quantitative Omar Falk MD Work Phone: Start: 05-31-2025 Mri brain brain stem w/o contrast material Ginger Andrew APRN - COMMERCIAL REPORTER Work Phone: Start: 05-31-2025 Thromboplastin time partial plasma/whole blood Omar Falk MD Work Phone: Start: 05-31-2025 ANTI-XA, HEPARIN Omar Falk MD Work Phone: Start: 05-31-2025 Assay of magnesium Karen e Kamran FAMILY INTERVENTION SPECIALIST - COMMERCIAL REPORTER Work Phone: Start: 05-31-2025 BASIC METABOLIC PANE L W/ REFLEX TO MG FOR LOW K Ginger Andrew FAMILY INTERVENTION SPECIALIST - COMMERCIAL REPORTER Work Phone: Start: 05-31-2025 Assay of troponin quantitative Omar Falk MD Work Phone: Start: 05-31-2025 ANTI-XA, HEPARIN Omar Falk MD Work Phone: Start: 05-31-2025 Prothrombin time Omar Falk MD Work Phone: Start: 06-29-2024 Plain X-ray of right hip MD Hannah Gruber Work Phone: Start: 04-23-2024 Plain X-ray of right hip MD Hannah Gruber Work Phone: Start: 03-19-2024 Plain X-ray of right hip MD Hannah Gruber Work Phone: Start: 02-20-2024 Plain X-ray of right hip MD Hannah Gruber Work Phone: Start: 02-01-2024 Plain chest X-ray MD Reese Gruber Work Phone: Start: 01-31-2024 Duplex scan of lower limb veins MD Hannah Gruber Work Phone: Start: 01-29-2024 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 MD Hannah Gruber Work Phone: Start: 01-29-2024 Plain X-ray of right hip MD Hannah Gruber Work Phone: Start: 01-28-2024 CT cervical spine wi thout contrast MD Hannah Gruber Work Phone: Start: 01-28-2024 CT of head without contrast MD Hannah Gruber Work Phone: Start: 01-28-2024 Pelvis X-ray MD Hannah nye Work Phone: Start: 01-28-2024 Plain X-ray of right femur MD Hannah Gruber Work Phone: Start: 01-28-2024 Urine culture MD Hannah Gruber Work Phone: Start: 12-23-2023 MRI of head MD Hannah nye Work Phone: Start: 12-22-2023 CT of head without contrast MD Hannah Gruber Work Phone: Start: 12-21-2023 CT angiography of head MD Hannah Gruber Work Phone: Start: 12-21-2023 CT angiography of ne ck vessels MD Hannah Gruber Work Phone: Start: 12-21-2023 CT of head without contrast MD Hannah Gruber Work Phone: Start: 12-21-2023 Plain chest X-ray MD Reese Gruber Work Phone: Plan of Treatment Date Care Activity Detail Author Start: 01-27-2034 DTaP/Tdap/Td vaccine (2 - Td or Tdap) DTaP/Tdap/Td vaccine (2 - Td or Tdap) [employer] Start: 06-01-2026 Lipid panel [facility] [employer] Start: 06-14-2025 [facility] Start: 06-07-2025 Hospital admission [facility] Start: 06-07-2025 Referral to clinical graphite grinder [facility] Start: 06-07-2025 [facility] Start: 05-31-2025 Annual Wellness Visi t (Medicare) Annual Wellness Visit (Medicare) [employer] Start: 05-23-2025 COVID-19 Vaccine ( season) COVID-19 Vaccine ( season) [facility] Start: 04-22-2025 Influenza vaccination Flu vaccine (# 1) [facility] Start: 06-29-2024 Plain X-ray of right hip XR hi p RT min 2V(w/wo pelvis)* [facility] Start: 06-29-2024 XR Hip - right 2 Views [facility] Start: 04-23-2024 Plain X-ray of right hip XR hi p RT min 2V(w/wo pelvis)* [facility] Start: 04-23-2024 XR Hip - right 2 Views [facility] Start: 03-19-2024 Plain X-ray of right hip [facility] Start: 03-19-2024 XR Hip - right 2 Views [facility] Start: 02-20-2024 Plain X-ray of right hip [facility] Start: 02-20-2024 XR Hip - right 2 Views [facility] Start: 02-11-2024 [facility] Start: 02-01-2024 Comprehensive metabo lic 2000 panel - Serum or Plasma [facility] Start: 02-01-2024 [facility] Start: 01-31-2024 Comprehensive metabo lic 2000 panel - Serum or Plasma [facility] Start: 01-31-2024 [facility] Start: 01-30-2024 Hospital admission [facility] Start: 01-30-2024 Referral to clinical graphite grinder [facility] Start: 01-30-2024 Referral to rehabilitation physician [facility] Start: 01-30-2024 Comprehensive metabo lic 2000 panel - Serum or Plasma [facility] Start: 01-30-2024 End: 01-30-2024 [facility] Start: 01-29-2024 Referral to Workers Compensation Defense Attorney [facility] Start: 01-29-2024 [facility] Start: 01-28-2024 Consultation [facility] Start: 01-28-2024 Hospital admission [facility] Start: 01-28-2024 End: 01-28-2024 [facility] Start: 01-28-2024 Bacteria identified in Urine by Culture Urine Culture [facility] Start: 01-28-2024 Urine culture Urine Culture [facility] Start: 01-28-2024 [facility] Start: 01-01-2024 [facility] Start: 12-23-2023 Hospital admission [facility] Start: 12-23-2023 Referral to clinical graphite grinder [facility] Start: 12-23-2023 [facility] Start: 12-23-2023 [facility] Start: 12-22-2023 CT of head without contrast CT head/brain wo con [facility] Start: 12-22-2023 Referral to rehabilitation physician [facility] Start: 12-22-2023 End: 12-22-2023 [facility] Start: 12-21-2023 Physical therapy procedure [facility] Start: 12-21-2023 Referral to occupati onal therapist [facility] Start: 12-21-2023 Referral to speech a nd language therapy service [facility] Start: 12-21-2023 Consultation [facility] Start: 12-21-2023 Hospital admission [facility] Start: 12-21-2023 Referral to neurologist [facility] Start: 12-21-2023 MRI of head MR head/brain wo con [facility] Start: 12-21-2023 [facility] Start: 12-21-2023 Telemedicine consult ation with patient [facility] Start: 12-21-2023 CT angiography of head [facility] Start: 12-21-2023 CT angiography of ne ck vessels [facility] Start: 12-21-2023 CT Head WO contrast [facility] Start: 12-21-2023 CT of head without contrast CT head stroke alert wo con [facility] Start: 12-21-2023 Plain chest X-ray XR chest 1V portab le [facility] Start: 12-21-2023 XR Chest Single view [facility] Start: 12-21-2023 Introduction of Othe r Thrombolytic into Peripheral Vein, Percutaneous Approach [facility] Start: 02-17-2020 Respiratory Syncytia l Virus (RSV) or age 60 yrs+ (1 - 1-dose 75+ series) Respiratory Syncytial Virus (RSV) or age 60 yrs+ (1 - 1-dose 75+ series) [employer] Start: 06-17-2016 Pneumococcal 50+ yea rs Vaccine (2 of 2 - PCV) Pneumococcal 50+ years Vaccine (2 of 2 - PCV) [employer] Start: 02-17-2000 Screening for osteoporosis DEXA (modify frequency per FRAX score) [employer] Start: 1995 Shingles vaccine (1 of 2) Brand gles vaccine (1 of 2) [employer] Start: 1957 Depression Monitoring Depression Mon itoring [employer] Anion gap measurement [facility] End: 06-12-2025 Basic metabolic 2000 panel - Serum or Plasma Basic Metabolic Panel Lab Routine Daily for 7 Days starting 06/06/2025 until 06/12/2025, 2 completed [employer] Comment on above: Daily for 7 Days sta rting 06/06/2025 until 06/12/2025, 2 completed Basophils [#/volume] in Blood by Automated count [facility] Basophils/100 leukoc ytes in Blood by Automated count [facility] Calculated LDL cholesterol level [facility] End: 06-12-2025 CBC W Auto Differential panel - Blood CBC with Auto Differential Lab Routine Daily for 7 Days starting 06/06/2025 until 06/12/2025, 2 completed [employer] Comment on above: Daily for 7 Days sta rting 06/06/2025 until 06/12/2025, 2 completed Cholesterol.total/Ch olest jerry in HDL [Mass Ratio] in Serum or Plasma [facility] Continuous pulse oximetry Pulse oximetry, continuous Respiratory Care Routine Every 4hr until discontinued starting 06/05/2025 [employer] Comment on above: Every 4hr until disc ontinued starting 06/05/2025 CT Head WO contrast CT HEAD WO C ONTRAST Imaging Routine 06/06/2025 3:15 PM EDT [employer] Eosinophils/100 leukocytes in Blood by Automated count [facility] Erythrocyte distribu tion width [Ratio] by Automated count [facility] Erythrocytes [#/volu me] in Blood [facility] Glucose measurement estimated from glycated hemoglobin [facility] Hematocrit [Volume Fraction] of Blood [facility] Hemoglobin [Mass/vol ume] in Blood [facility] End: 06-03-2025 Home O2 eval (desaturation screen) Home O2 eval (desaturation screen) Respiratory Care Routine One Time for 1 Occurrences starting 06/03/2025 until 06/03/2025 [employer] Comment on above: One Time for 1 Occur rences starting 06/03/2025 until 06/03/2025 Leukocytes [#/volume ] corrected for nucleated erythrocytes in Blood by Automated coun [facility] Leukocytes [#/volume ] in Blood [facility] Lymphocytes [#/volum e] in Blood by Automated count [facility] Lymphocytes/100 leukocytes in Blood by Automated count [facility] End: 06-12-2025 Magnesium [Mass/volume] in Serum or Plasma Magnesium Lab Routine Daily for 7 Days starting 06/06/2025 until 06/12/2025, 2 completed [employer] Comment on above: Daily for 7 Days sta rting 06/06/2025 until 06/12/2025, 2 completed MCH [Entitic mass] b y Automated count [facility] MCHC [Mass/volume] b y Automated count [facility] MCV [Entitic volume] by Automated count [facility] Monocytes [#/volume] in Blood by Automated count [facility] Monocytes/100 leukoc ytes in Blood by Automated count [facility] Neutrophils [#/volum e] in Blood by Automated count [facility] Neutrophils/100 leukocytes in Blood by Automated count [facility] Nucleated erythrocyt es [Presence] in Blood by Automated count [facility] Oxygen therapy [Mini mum Data Set] Initiate Oxygen Therapy Protocol Respiratory Care Routine As Needed until discontinued starting 05/30/2025 [employer] Comment on above: As Needed until disc ontinued starting 05/30/2025 Patient Education [facility] Work Phone: Patient referral [facility] Work Phone: End: 06-12-2025 Phosphate [Mass/volume] in Serum or Plasma Phosphorus Lab Routine Daily for 7 Days starting 06/06/2025 until 06/12/2025, 2 completed [facility] Comment on above: Daily for 7 Days sta rting 06/06/2025 until 06/12/2025, 2 completed Platelet mean volume [Entitic volume] in Blood by Automated count [facility] Platelets [#/volume] in Blood [facility] VLDL cholesterol measurement [facility] Immunizations Immunization Date Immunization Notes Care Provider Fa cility 01-28-2024 tetanus toxoid, redu mary ellen diphtheria toxoid, and acellular pertussis vaccine, adsorbed MD Hannah Gruber Work Phone: [facility] Payers Date Payer Category Payer Self-pay [id number] 2022 Unknown [id number] 2010 Medicare [id number] 1945 Unknown [id number] 2.16.84 [id number] 1945 Unknown [id number] 2.16.84 0.1.582077.3.579.2.1258 1945 Unknown [id number] 2.16.84 0.1.445300.3.579.2.1259 1945 Unknown [id number] 2.16. 840.1.279721.3.579.2.175 1945 Unknown [id number] 2.16.8 40.1.130768.3.579.2. 1945 Unknown [id number] 2.16.8 40.1.839891.3.579.2.8 1945 Unknown [id number] 2.16.8 40.1.564961.3.579.2. 1945 Unknown [id number] 2.16.8 40.1.417304.3.579.2. 1945 Unknown [id number] 2.16.8 40.1.723091.3.579.2. 1945 Unknown [id number] 2.16.8 40.1.624620.3.579.2. 1945 Unknown [id number] 2.16.8 40.1.876408.3.579.2. 1945 Unknown [id number] 2.16.8 40.1.464104.3.579.2. 1945 Unknown [id number] 2.16.8 40.1.712084.3.579.2. 1945 Unknown [id number] 2.16.8 40.1.745331.3.579.2. 1945 Unknown [id number] 2.16.8 40.1.073422.3.579.2. 1945 Unknown [id number] 2.16.8 40.1.153895.3.579.2. 1945 Unknown [id number] 2.16.8 40.1.642927.3.579.2.8 1945 Unknown [id number] 2.16.8 40.1.357387.3.579.2.718 Unknown [id number] Unknown [id number] 2.16.8 40.1.136842.3.579.2.531 Unknown [id number] 2.16.8 40.1.728931.3.579.2.531 Social History Date Type Detail Facility Start: 12-21-2023 End: 06-08-2025 Tobacco smoking status NHIS Never smoked tobacco (finding) [facility] Start: 1945 Sex Assigned At Female F [facility] Tobacco smoking status NDIS Tobacco smoking consumption unknown [facility] Start: 1945 Sex assigned at Not on file [facility] Start: 05-30-2025 Sex Female (finding) [facility] Gender identity Not on file [facility] Start: 06-14-2025 SDOH Follow up SDOH Follow up [facility] Work Phone: Medical Equipment Procedure Code Equipment Code Equipment Origin al Text Equipment Identifier Dates Arthroplasty, hip, bipolar ()[id number] FDA Start: 01-29-2024 Arthroplasty, hip, bipolar ()[id number] FDA Start: 01-29-2024 Arthroplasty, hip, bipolar ()[id number]( [id number] FDA Start: 01-29-2024 Arthroplasty, hip, bipolar ()[id number] FDA Start: 01-29-2024 Arthroplasty, hip, bipolar ()[id number] FDA Start: 01-29-2024 Arthroplasty, hip, bipolar ()[id number] FDA Start: 01-29-2024 Arthroplasty, hip, bipolar ()[id number] FDA Start: 01-29-2024 Goals Date Patient Goal Desired Activity /State Functional Status Date Assessment Result Facility 02-11-2024 Functional status Patient is Pro gressing Toward Baseline [facility] Work Phone: 01-30-2024 Functional status Patient is Pro gressing Toward Baseline [facility] Work Phone: 01-01-2024 Functional status Patient at Baseline [facility] Work Phone: 12-23-2023 Functional status Patient is Pro gressing Toward Baseline [facility] Work Phone: Mental Status Date Assessment Result Facility 02-11-2024 Cognitive function Patient at Baseline [facility] Work Phone: 01-30-2024 Cognitive function Patient at Baseline [facility] Work Phone: 01-01-2024 Cognitive function Patient at Baseline [facility] Work Phone: 12-23-2023 Cognitive function Patient is Pr ogressing Toward Baseline [facility] Work Phone: Clinical Notes 12-22-2023 to 06-07-2025 Note Date & Type Note Facility 06-07-2025 Evaluation note Diagnosis Onset Date Resolution Acute CVA (cerebrovascular accident) acute June 07, 2025 6:45pm Expressive aphasia acute 2024 6:45pm History of CVA (cerebrovascular accident) acute June 07, 2025 6:45pm HTN (hypertension) acute 2024 6:45pm Impaired mobility and activities of daily living acute June 07, 2025 6:45pm Paroxysmal atrial fibrillation acute June 07, 2025 6:45pm [facility] Work Phone: [phone]) 607-789709-16-2025 Hospital course Narrative* Yomaira Todd MD - 06/07/2025 10:29 AM EDT Images from the original note were not included. [facility] Office: [phone] James Garcia DO, Preet Cedeno DO, Rj Bass DO, Richard Hill DO, Jerry Nash MD, Esperanza Liang MD, Nader Yates MD, Katharina Rodrigues MD, Xavier Powell MD, Litzy Ricardo MD, Zandra Jung MD, Silviano Nicholson DO, Fernando Garcia DO, Cande Brooks MD, Blu Vazquez DO, Nan Cabrera MD, Brenna Vela MD, Louie Wright MD, Loki Olivas MD, Omar Falk MD,Marcus Angulo MD, Yomaira Todd MD, Tyler Carrillo MD, Cinda Moralez MD, Howard Campos DO,Jolene Vogel MD, Kendy Hernandez DO, Harper Jean Baptiste MD, Storm Lee MD, Silviano Rebolledo MD, Veronica Rebolledo MD, Denae Gloria MD, Clari Ugarte, [facility], Susan Chow, [facility], Howard Quick, [facility], Aixa, [facility], Jadyn Cuello, [facility], Sallie Desouza, [facility], Eliz Field, [facility], Joy Mendez, [facility], Mandy Van, PA-C, Rachana Eldridge, [facility], Viraj Perez, [facility], Eileen Tran, [facility], Ifrah Parada, [facility], Bert Leggett, PA-C, Marry Craven, PA-C, Dayanara Evangelista, [facility], Heavenly Cartwright, [facility], Lanie Costa, [facility], Elodia Masters, [facility], Irena Wise, [facility], Fatemeh Roberson, [facility] IN-PATIENT SERVICE [facility] Discharge Summary Patient ID: Moustapha Alejandra : 1945 ACCOUNT: [id number] Patient's PCP: Hannah Gruber MD Admit Date: 05/30/2025 Discharge Date: 06/07/2025 Length of Stay: 8 Code Status: Full Code Admitting Physician: No admitting provider for patient encounter. 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 * Admission Condition: fair Discharged Condition: good Hospital Stay: As in HPI 80-year-old female with past medical history of CVA(history of aphasia improved after speech therapy), anxiety, asthma, depression, history of right hip fracture uses walker for ambulation, hypertension, atrial fibrillation?? On Eliquis. Presented to outside hospital due to aphasia. Lab workup at outside hospital sodium 135, potassium 3.6, chloride 100, BUN/creatinine 21/0.7, blood glucose 111, normal LFTs, troponin 1166--- 1555. CBC WBC 7.5, hemoglobin 8.9, platelet 315. CT head showed acute/subacute infarct involving the left SHEET METAL PATTERN CUTTER distribution with mild local mass effect no hemorrhagic transformation at this time. Chronic areas of remote infarct. Telestroke was consulted at outside hospital. Patient was out of the window for DKA. Patient low NIHSS score of 1 and already on anticoagulation. Cardiology consulted due to elevated troponin and recommended starting patient on heparin drip. Hospital Course: During hospital course MRI brain obtained and showed : Acute infarct involving majority of left PCAwith smaller acute infarcts in the left cerebellar hemisphere and left thalamu, patient continued to receive heparin drip Lipitor and aspirin she continued to work with PT-OT, heparin drip was discontinued and she was started on Xarelto 20 mg daily, also during hospital course cardiology was consulted due to elevated troponin who recommended to continue with aspirin Lipitor and Xarelto, echo obtained which shows large echodensity in the left atrium, however patient and family would like to avoid DIAMOND unless absolutely necessary as treatment would not change, patient continued to receive Xarelto Patient cleared from neurology and cardiology to be discharged to rehab and outpatient follow-up and final recommendation to continue with Xarelto 20 mg p.o. daily aspirin 80 and Lipitor and she willbe discharged to rehab facility today on stable condition She was seen and examined today, she she denies any complaint, lab vital signs reviewed remained stable Was advised to follow-up with primary doctor after discharge to recheck vital sign and CBC Discussed with rn field case manager Significant therapeutic interventions: as above Significant Diagnostic Studies: Labs / Micro: CBC: Lab Results Component Value Date/Time WBC 6.7 06/07/2025 03:18 AM RBC 3.67 06/07/2025 03:18 AM HGB 8.3 06/07/2025 03:18 AM HCT 29.0 06/07/2025 03:18 AM MCV 79.0 06/07/2025 03:18 AM MCH 22.6 06/07/2025 03:18 AM MCHC 28.6 06/07/2025 03:18 AM RDW 15.5 06/07/2025 03:18 AM PLT 255 06/07/2025 03:18 AM BMP: Lab Results Component Value Date/Time GLUCOSE 98 06/07/2025 03:18 AM NA 137 06/07/2025 03:18 AM K 3.9 06/07/2025 03:18 AM CL 104 06/07/2025 03:18 AM CO2 25 06/07/2025 03:18 AM ANIONGAP 8 06/07/2025 03:18 AM BUN 19 06/07/2025 03:18 AM CREATININE 0.8 06/07/2025 03:18 AM CALCIUM 9.1 06/07/2025 03:18 AM LABGLOM 74 06/07/2025 03:18 AM Radiology: CT HEAD WO CONTRAST Result Date: 06/07/2025 1. Redemonstration of an area of hypoattenuation in the posterior left temporal occipital lobe consistent with an acute area of infarct. No hemorrhage is identified. 2. 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 Remote left cerebellar infarct. CT HEAD WO CONTRAST Result Date: 06/05/2025 Involving left occipital lobe infarct with new faint curvilinear areas of increased attenuation suggesting cortical laminar necrosis. Petechial hemorrhage is considered less likely. Left thalamic andcerebellar infarcts are not significantly changed. XR CHEST PORTABLE Result Date: 06/01/2025 Mild central pulmonary vascular congestion. No consolidation or pleural effusion. CT HEAD WO CONTRAST Result Date: 06/01/2025 1. Left occipital lobe, thalamus, and cerebellar hemisphere acute infarcts unchanged. No intracranial hemorrhage identified. MRI BRAIN WO CONTRAST Addendum Date: 05/31/2025 he important findings were discussed with Dr. Kendy Hernandez by Dr. Ayad Lacy at 05/31/2025 05:39 PM. 1. Result Date: 05/31/2025 1. Acute infarct involving the majority of the left SHEET METAL PATTERN CUTTER territory, with smaller acute infarcts alsoseen in the anterior/inferior left cerebellar hemisphere and left thalamus. No associated hemorrhage or mass effect. 2. 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 3. Mild burden of scattered white matter FLAIR hyperintensities, likely representing chronic microangiopathic ischemic changes in this age group. Consultations: Consults: Final Specialist Recommendations/Findings: IP CONSULT TO CARDIOLOGY IP CONSULT TO NEUROLOGY The patient was seen and examined on day of discharge and this discharge summary is in conjunction with any daily progress note from day of discharge. Discharge plan: Disposition: Rehab facility Physician [facility] [address] [facility] [id number] Hannah Gruber MD 1 [facility] [id number] Follow up in 1 week(s) Requiring Further Evaluation/Follow Up POST HOSPITALIZATION/Incidental Findings: CBC Diet: regular diet Activity: As tolerated Instructions to Patient: Please continue to take your medication as prescribed and follow-up with your primary doctor within 1 week of discharge Discharge Medications: Medication List START taking these medications aspirin 81 MG EC tablet Take 1 tablet by mouth daily atorvastatin 40 MG tablet Commonly known as: LIPITOR Take 1 tablet by mouth nightly rivaroxaban 20 MG Tabs tablet Commonly known as: XARELTO Take 1 tablet by mouth Daily with supper Where to Get Your Medications These medications were sent to [address] - [phone] - [phone] [place] [id number] aspirin 81 MG EC tablet atorvastatin 40 MG tablet You can get these medications from any pharmacy Bring a paper prescription for each of these medications rivaroxaban 20 MG Tabs tablet No discharge procedures on file. Time Spent on discharge is 33 mins in patient examination, evaluation, counseling as well as medication reconciliation, prescriptions for required medications, discharge plan and follow up. Electronically signed by Yomaira Todd MD 06/07/2025 10:29 AM Thank you Hannah Islas MD for the opportunity to be involved in this patient's care. * Kendy Hernandez DO - 06/03/2025 8:41 AM EDT [facility] IN-PATIENT SERVICE [facility] Discharge Summary Patient ID: Moustapha Alejandra : 1945 ACCOUNT: [id number] Patient's PCP: Hannah Gruber MD Admit Date: 05/30/2025 Discharge Date: 06/03/2025 Length of Stay: 4 Code Status: Full Code Admitting Physician: No admitting provider for patient encounter. 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 * Discharged Condition: stable Hospital Stay: Hospital Course: Moustapha Alejandra is a 80 y.o. female who was admitted for the management of Stroke-like symptoms , presented to ER with No chief complaint on file. This is an 80-year-old female with past medical history of CVA (history of aphasia improved after speech therapy), anxiety, asthma, depression, history of right hip fracture uses walker for ambulation, and A-fib who presented to the hospital with expressive aphasia. Telestroke was consulted but patient was out of the window for TNK. Her NIH was 1 and she was taking Eliquis at home although she had missed 2 doses of the Eliquis. MRI of the brain showed acute infarct involving majority of left SHEET METAL PATTERN CUTTER with smaller acute infarcts in the left cerebellar hemisphere and left thalamus. Patient was also found to have elevated troponins. She was admitted for evaluation by neurology and cardiology. Significant therapeutic interventions: Acute infarct of the left SHEET METAL PATTERN CUTTER Smaller acute infarcts in the anterior/inferior left cerebellar hemisphere and left thalamus Small chronic transcortical infarcts in the frontal lobes Chronic lacunar infarct in the left cerebellar hemisphere MRI brain: Acute infarct involving majority of left SHEET METAL PATTERN CUTTER with smaller acute infarcts in the left cerebellar hemisphere and left thalamus Repeat CT head shows no intracranial hemorrhage Patient was evaluated by neurology, per recommendations no anticoagulation at this time, repeat noncontrast CT head on 06/08/2025 and if it is negative then it is okay to resume anticoagulant, Eliquis, on 06/09/2025 Neurology has cleared patient for discharge Continue Lipitor and aspirin Continue PT/OT Patient is to follow-up with PCP outpatient NSTEMI HLD Echo: EF 57%, normal wall motion Continue aspirin and Lipitor IV heparin was stopped due to ischemic stroke Cardiology following, they have cleared patient for discharge Acute hypoxic respiratory failure likely secondary to above Continue oxygen supplementation to keep SpO2 greater than 90% Paroxysmal A-fib S/p loop recorder placement Eliquis 5 mg twice daily at home, missed 2 doses Holding anticoagulation for now until repeat imaging Significant Diagnostic Studies: Labs / Micro: CBC: Lab Results Component Value Date/Time WBC 9.4 06/02/2025 07:07 AM RBC 3.54 06/02/2025 07:07 AM HGB 8.0 06/02/2025 07:07 AM HCT 27.5 06/02/2025 07:07 AM MCV 77.7 06/02/2025 07:07 AM MCH 22.6 06/02/2025 07:07 AM MCHC 29.1 06/02/2025 07:07 AM RDW 15.8 06/02/2025 07:07 AM PLT 260 06/02/2025 07:07 AM BMP: Lab Results Component Value Date/Time GLUCOSE 119 06/02/2025 07:07 AM NA 137 06/02/2025 07:07 AM K 4.3 06/02/2025 07:07 AM CL 103 06/02/2025 07:07 AM CO2 23 06/02/2025 07:07 AM ANIONGAP 11 06/02/2025 07:07 AM BUN 16 06/02/2025 07:07 AM CREATININE 0.9 06/02/2025 07:07 AM CALCIUM 9.1 06/02/2025 07:07 AM LABGLOM 65 06/02/2025 07:07 AM Radiology: XR CHEST PORTABLE Result Date: 06/01/2025 Mild central pulmonary vascular congestion. No consolidation or pleural effusion. CT HEAD WO CONTRAST Result Date: 06/01/2025 1. Left occipital lobe, thalamus, and cerebellar hemisphere acute infarcts unchanged. No intracranial hemorrhage identified. MRI BRAIN WO CONTRAST Addendum Date: 05/31/2025 ADDENDUM #1 The important findings were discussed with Dr. Kendy Hernandez by Dr. Ayad Lacy at 05/31/2025 05:39 PM. 1. Result Date: 05/31/2025 1. Acute infarct involving the majority of the left SHEET METAL PATTERN CUTTER territory, with smaller acute infarcts alsoseen in the anterior/inferior left cerebellar hemisphere and left thalamus. No associated hemorrhage or mass effect. 2. 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 3. Mild burden of scattered white matter FLAIR hyperintensities, likely representing chronic microangiopathic ischemic changes in this age group. Consultations: Consults: Final Specialist Recommendations/Findings: IP CONSULT TO CARDIOLOGY IP CONSULT TO NEUROLOGY The patient was seen and examined on day of discharge and this discharge summary is in conjunction with any daily progress note from day of discharge. Discharge plan: Disposition: Acute rehab Physician Follow Up: [facility] [address] [facility] [address] Hannah Gruber MD [address] [place] [id number] Follow up in 1 week(s) Requiring Further Evaluation/Follow Up POST HOSPITALIZATION/Incidental Findings: As above Diet: regular diet Activity: As tolerated Instructions to Patient: Continue taking medications as prescribed Per neurology, no anticoagulation (Eliquis) at this time, repeat noncontrast CT head on 06/08/2025 and if it is negative then it is okay to resume anticoagulant, Eliquis, on 06/09/2025 Follow-up with PCP and cardiology Discharge Medications: Medication List START taking these medications aspirin 81 MG EC tablet Take 1 tablet by mouth daily atorvastatin 40 MG tablet Commonly known as: LIPITOR Take 1 tablet by mouth nightly Where to Get Your Medications These medications were sent to [place], [place] - [address] [place] [address] - P [phone] - F [phone] [place] [id number] aspirin 81 MG EC tablet atorvastatin 40 MG tablet No discharge procedures on file. Time Spent on discharge is 40 mins in patient examination, evaluation, counseling as well as medication reconciliation, prescriptions for required medications, discharge plan and follow up. Electronically signed by Kendy Hernandez DO 06/03/2025 8:41 AM Thank you Hannah Islas MD for the opportunity to be involved in this patient's care. documented in this encounterBon [facility] History of Present illness Narrative* Irena Wise, FAMILY INTERVENTION SPECIALIST - [employer] PRESS OPERATOR - 06/07/2025 8:58 AM EDT Images from the original note were not included. [employer] Progress Note Date: 06/07/2025 Patient name: Moustapha Alejandra Date of admission: 05/30/2025 6:58 PM Date of : 1945 PCP: Hannah Gruber MD Reason for Admission: Stroke-like symptoms [R29.90] Elevated troponin [R79.89] CVA (cerebrovascular accident due to intracerebral hemorrhage) (HCC) [I61.9] Subjective: Clinical Changes / Abnormalities: Pt seen and examined in the room. Patient resting in bed. Pt denies any CP or sob. Labs, vitals and tele reviewed- SR 83 Medications: Scheduled Meds: rivaroxaban 20 mg Oral Dinner lidocaine 1 patch TransDERmal Daily aspirin 81 mg Oral Daily sodium chloride flush 5-40 mL IntraVENous 2 times per day atorvastatin 40 mg Oral Nightly Continuous Infusions: sodium chloride CBC: Recent Labs 06/05/25 1607 06/06/25 0334 06/07/25 0318 WBC 9.2 7.0 6.7 HGB 9.2* 9.1* 8.3* PLT 296 264 255 BMP: Recent Labs 06/06/25 0334 06/07/25 0318 NA 138 137 K 4.1 3.9 CL 105 104 CO2 22 25 BUN 19 19 CREATININE 0.8 0.8 GLUCOSE 107* 98 Hepatic: No results for input(s): AST , ALT , BILITOT , ALKPHOS in the last 72 hours. Invalid input(s): ALB Troponin: No results for input(s): TROPHS in the last 72 hours. BNP: No results for input(s): BNP in the last 72 hours. Lipids: No results for input(s): CHOL , HDL in the last 72 hours. Invalid input(s): LDLCALCU INR: Recent Labs 06/05/25 1607 INR 1.0 ECHO 06/02/25 Left Atrium: Left atrium size is normal. [...] decreases greater than 50% during inspiration; therefore theestimated right atrial pressure is normal (~3 mmHg). IVC size is normal. Image quality is adequate. Objective: Vitals: BP (!) 138/52 Pulse 88 Temp 97.6 F (36.4 C) (Oral) Resp 22 Wt 80.7 kg (177 lb 14.6 oz) SpO2 97% General appearance: alert and cooperative with exam HEENT: Head: Normocephalic, no lesions, without obvious abnormality. 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 Pt takes eliquis at home but has missed doses. Patient and family would like to avoid DIAMOND unless absolutely necessary as treatment would not change. Patient has been started on Xarelto Continue ASA and statin. No bleed at this time. Ok for patient to be discharged per CV standpoint and for patient to follow up outpatient in 2-4 weeks. Follows with [facility] Cardiology as outpt [employer] [phone] * Edis Kowalski MD - 06/07/2025 8:34 AM EDT [facility] Neurology IN-PATIENT SERVICE [facility] Neurology Consult Note Date: 06/07/2025 Patient name: Moustapha Alejandra Date of admission: 05/30/2025 6:58 PM Account: [id number] Date of : 1945 PCP: Hannah Gruber MD Room: [address] [place], [place] [id number] Code Status: Full Code Chief Complaint: Aphasia History Obtained From: patient, electronic medical record History of Present Illness: Per consult note The patient is a 80 y.o. female with significant past medical history of hypertension, hyperlipidemia, depression, asthma, history of CVA, A-fib? (On Eliquis) who was referred to us from [facility]. The patient initially presented to the emergency department due to confusion and expressive aphasia. Stroke alert was called on the patient and her NIHSS was 1. Last known well was the night before the day of presentation 04/28/2025. TNK was not given as the patient was outside the window and because of history of anticoagulation. She was loaded with aspirin 325 mg. The patient denied any headaches, blurred vision, falling downs, head trauma, weakness/numbness or any other complaints. Patient was found to have a troponin level of 1166. EKG was interpreted as with no acute findings. Cardiology was consulted, the patient is to be treated as a case of ACS with heparin drip. At arrival and initial evaluation, the patient was alert, oriented to place/time. Motor/sensory functions were intact all over. NIH was 3, for mild aphasia and not answering age/month. 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 No hemorrhagic transformation at that time. Chronic areas of remote infarcts. CTA did not show any evidence of LVOs. Of note the patient's history of CVA left her with expressive aphasia. Her daughter mentioned that she improved significantly after following up with speech therapy, and this was not her baseline. 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 Patient desaturated last night to 51% and neurology was requested for evaluation due to change in neuroexam due to agitation Will repeat CT head today to rule out any hemorrhagic conversion. 06/02:- Patient seen and examined at bedside. Patient is complaining of back pain overnight and is on Mantador for the same. Patient was sleeping the morning, easily arousable. Patient CT scan of head without contrast 06/01/25 did not reveal any hemorrhagic transformation. Echocardiogram is still pending. Heparin is on hold. 06/03 :-Patient seen and examined at bedside. AO x 2. Has difficulty remembering the name of the president and month of the year. Echo revealed a large echodensity in the left atrium of the. Cardiology recommended DIAMOND. Cardiology is recommending anticoagulation YUE. 06/04: Patient was seen and examined at bedside. Vitally stable. Systolic blood pressure in the morning was 136/46. DIAMOND pending, cardiology on board due to LV thrombus. Will decide on anticoagulation,ideally should be 10 to 14 days due to right hemispheric stroke.Plan to repeat CT head tomorrow, will start heparin without bolus if stable and then transition to DOAC afterwards 06/05: Patient seen and examined at bedside. Still having some aphasia, mostly expressive. Repeat CThead on 06/05 showed left occipital lobe infarct with new faint curvilinear areas of increased attenuation suggesting cortical laminar necrosis, petechial hemorrhage is considered less likely. Will plan on starting heparin. 06/06: Patient seen and examined, no acute event overnight, alert oriented x 2, NIH 5, plan to switch Eliquis to Xarelto per cardiology, [facility] 06/07: Patient seen and examined, no acute event overnight reported, neuroexam unchanged, patient started on Xarelto 20 mg daily, repeated CT head yesterday with no bleed, [facility] Past Medical History: No past medical history on file. Past Surgical History: No past surgical history on file. Medications Prior to Admission: Prior to Admission medications Medication Sig Start Date End Date Taking? Authorizing Provider aspirin 81 MG EC tablet Take 1 tablet by mouth daily 06/03/25 Yes Kendy Hernandez DO atorvastatin (LIPITOR) 40 MG tablet Take 1 tablet by mouth nightly 06/03/25 Yes Kendy Hernandez DO Allergies: Demerol hcl [meperidine], Environmental/seasonal, and Iodinated contrast media Social History: Tobacco: has no history on file for tobacco use. Alcohol: has no history on file for alcohol use. Drug Use: has no history on file for drug use. Family History: No family history on file. Review of Systems: Review of Systems Constitutional: Negative. HENT: Negative. Eyes: Positive for visual disturbance. Respiratory: Negative. Cardiovascular: Negative. Gastrointestinal: Negative. Endocrine: Negative. Musculoskeletal: Negative. Allergic/Immunologic: Negative. Neurological: Positive for speech difficulty. Negative for dizziness, tremors, seizures, syncope, facial asymmetry, weakness, light-headedness, numbness and headaches. Physical Exam: BP (!) 138/52 Pulse 88 Temp 97.6 F (36.4 C) (Oral) Resp 22 Wt 80.7 kg (177 lb 14.6 oz) SpO2 97% Temp (24hrs), Av.4 F (36.9 C), Min:97.6 F (36.4 C), Max:99.3 F (37.4 C) No results for input(s): POCGLU in the last 72 hours. Intake/Output Summary (Last 24 hours) at 06/07/2025 0834 Last data filed at 06/06/2025 1822 Gross per 24 hour Intake 300 ml Output 700 ml Net -400 ml Neurological Exam GENERAL Appears comfortable and in no distress HEENT NC/ AT HEART S1 and S2 heard; palpation of pulses: radial pulse NECK Supple and no bruits heard MENTAL STATUS: Alert, oriented to place/person not time, mild to moderate aphasia, intact repetition, impaired naming CRANIAL NERVES: II - complete right homonymous hemianopsia III,IV, - PERR, EOMs full, no ptosis V - Normal facial sensation VII - Normal facial symmetry VIII - Intact hearing IX,X - Symmetrical palate XI - Symmetrical shoulder shrug XII - Midline tongue, no atrophy MOTOR FUNCTION: RUE: Significant for good strength of grade 5/5 in proximal and distal muscle groups LUE: Significant for good strength of grade 5/5 in proximal and distal muscle groups RLE: Significant for good strength of grade 5/5 in proximal and distal muscle groups LLE: Significant for good strength of grade 5/5 in proximal and distal muscle groups Normal bulk, normal tone and no involuntary movements, no tremor SENSORY FUNCTION: Normal touch, normal pinprick, normal vibration, normal proprioception CEREBELLAR FUNCTION: Intact fine motor control over upper limbs and lower limbs REFLEX FUNCTION: Symmetric in upper and lower extremities, no Babinski sign STATION and GAIT Deferred INITIAL NIH STROKE SCALE: 1a. Level of consciousness: 0 - alert; keenly responsive 1b. Level of consciousness questions: 2 - answers neither question correctly 1c. Level of consciousness questions: 0 - performs both tasks correctly 2. Best Gaze: 0 - normal 3. Visual: 2 4. Facial Palsy: 0 5a. Motor left arm: 0 - no drift, limb holds 90 (or 45) degrees for full 10 seconds 5b. Motor right arm: 0 - no drift, limb holds 90 (or 45) degrees for full 10 seconds 6a. Motor left le - no drift; leg holds 30 degree position for full 5 seconds 6b. Motor right le - no drift; leg holds 30 degree position for full 5 seconds 7. Limb Ataxia: 0 - absent 8. Sensory: 0 - normal; no sensory loss 9. Best Language: 1 - mild to moderate aphasia; some obvious loss of fluency or facility of comprehension without significant limitation on ideas expressed or form of expression. Reduction of speech and/or comprehension, however, makes conversation about provided materials difficult or impossible. For example, in conversation about provided materials, examiner can identify picture or naming card content from patient's response. 10. Dysarthria: 0 - normal 11. Extinction and Inattention: 0 - no abnormality TOTAL: 5 Investigations: Laboratory Testing: Recent Results (from the past 24 hours) Anti-XA, Heparin Collection Time: 06/06/25 9:31 AM Result Value Ref Range Anti-XA Unfrac Heparin 0.52 IU/L Basic Metabolic Panel Collection Time: 06/07/25 3:18 AM Result Value Ref Range Sodium 137 136 - 145 mmol/L Potassium 3.9 3.7 - 5.3 mmol/L Chloride 104 98 - 107 mmol/L CO2 25 20 - 31 mmol/L Anion Gap 8 (L) 9 - 16 mmol/L Glucose 98 74 - 99 mg/dL BUN 19 8 - 23 mg/dL Creatinine 0.8 0.6 - 0.9 mg/dL Est, Glom Filt Rate 74 >60 mL/min/1.73m2 Calcium 9.1 8.6 - 10.4 mg/dL CBC with Auto Differential Collection Time: 06/07/25 3:18 AM Result Value Ref Range WBC 6.7 3.5 - 11.3 k/uL RBC 3.67 (L) 3.95 - 5.11 m/uL Hemoglobin 8.3 (L) 11.9 - 15.1 g/dL Hematocrit 29.0 (L) 36.3 - 47.1 % MCV 79.0 (L) 82.6 - 102.9 fL MCH 22.6 (L) 25.2 - 33.5 pg MCHC 28.6 28.4 - 34.8 g/dL RDW 15.5 (H) 11.8 - 14.4 % Platelets 255 138 - 453 k/uL MPV 10.0 8.1 - 13.5 fL NRBC Automated 0.0 0.0 per 100 WBC RBC Morphology ANISOCYTOSIS PRESENT MICROCYTOSIS PRESENT Neutrophils % 66 (H) 36 - 65 % Lymphocytes % 18 (L) 24 - 43 % Monocytes % 10 3 - 12 % Eosinophils % 4 1 - 4 % Basophils % 1 0 - 2 % Immature Granulocytes % 1 (H) 0 % Neutrophils Absolute 4.40 1.50 - 8.10 k/uL Lymphocytes Absolute 1.22 1.10 - 3.70 k/uL Monocytes Absolute 0.64 0.10 - 1.20 k/uL Eosinophils Absolute 0.26 0.00 - 0.44 k/uL Basophils Absolute 0.06 0.00 - 0.20 k/uL Immature Granulocytes Absolute 0.09 0.00 - 0.30 k/uL Magnesium Collection Time: 06/07/25 3:18 AM Result Value Ref Range Magnesium 1.9 1.6 - 2.4 mg/dL Phosphorus Collection Time: 06/07/25 3:18 AM Result Value Ref Range Phosphorus 4.2 2.5 - 4.5 mg/dL Assessment : Primary Problem Stroke-like symptoms Active Hospital Problems Diagnosis Date Noted Homonymous hemianopia, right [H53.461] 06/06/2025 High risk medication use [Z79.899] 06/05/2025 CVA (cerebrovascular accident due to intracerebral hemorrhage) ([facility]) [I61.9] 06/04/2025 Abnormal echocardiogram [R93.1] 06/03/2025 ACS (acute coronary syndrome) ([facility]) [I24.9] 06/01/2025 Cardiomyopathy ([facility]) [I42.9] 06/01/2025 Chest pain [R07.9] 06/01/2025 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 ([facility]) [I63.432] 06/01/2025 NSTEMI (non-ST elevated myocardial infarction) ([facility]) [I21.4] 05/31/2025 Hyperlipidemia [E78.5] 05/31/2025 Hypertension [I10] 05/31/2025 Depression [F32.A] 05/31/2025 Cerebrovascular accident (CVA) ([facility]) [I63.9] 05/31/2025 Expressive aphasia [R47.01] 05/31/2025 Stroke-like symptoms [R29.90] 05/30/2025 80-year-old female with past history of hypertension, hyperlipidemia, atrial fibrillation (previously on Eliquis, missed 2 doses), asthma, depression, and prior CVA, now presenting with acute ischemic stroke. 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 #Likely cardioembolic, given atrial fibrillation and recent interruption of anticoagulation. MRI on 05/30/2025 showed acute infarct involving the majority of the left SHEET METAL PATTERN CUTTER territory, with smalleracute infarct also seen in the anterior/inferior left cerebellar hemisphere and left thalamus as well as small transcortical infarct in left frontal focus and chronic lacunar infarct in the left cerebellar hemisphere, mild burden of scattered white matter hyper intensities Repeat CT head from 06/01/2025 did not reveal any hemorrhagic transformation. Repeat CT head on 06/05/2025 showed left occipital infarct with new faint curvilinear areas of increased attenuation, suggestive of cortical laminar necrosis. Repeated CT head 06/06/2025 with no bleed Neurocheck per protocol. Patient is currently on aspirin, no need from [facility] Switched to Xarelto 20 mg daily echocardiogram revealed left atrial echodensity. Cardiology recommended DIAMOND. Loop recorder interrogation Lipid panel revealed total cholesterol 172, HDL 82, LDL 62 and HbA1c 5.5, on Lipitor 40 mg Blood pressure goal less than 140 Rest of management per primary Okay to discharge from [facility] Neurology will sign off Follow-up with neurology outpatient in 1 month Patient and Family Stroke Education Patient and/or family Education discussed today: embolic atrial fibrillation and hypertension Stroke Education Topics: Medication Compliance Importance of Followup Patient or family members expressed understanding on topics that were discussed and all their questions were answered. Consultations: IP CONSULT TO CARDIOLOGY IP CONSULT TO NEUROLOGY Follow-up further recommendations after discussing the case with attending The plan was discussed with the patient, patient's family and the medical staff. Patient is admitted as inpatient status because of co-morbidities listed above, severity of signs and symptoms as outlined, requirement for current medical therapies and most importantly because of direct risk to patient if care not provided in a hospital setting. Copy sent to Hannah Islas MD Mustafa Abdul Kareem, MD Neurology Service 06/07/2025 8:34 AM Cosigned by Jean Paul Sadler MD at 06/07/2025 1:35 PM EDT Associated attestation - Sadler, Jean Paul Koch MD - 06/07/2025 1:35 PM EDT I have discussed the care of patient including pertinent history and exam findings, with the Neurology resident. I have seen and examined the patient and the bourgeois elements of all parts of the encounter have been performed by me. I agree with the assessment, plan and orders as documented by the fellow/resident, after I modified exam findings and plan of treatments, and the final version is my approved version of the assessment. Active problem Left occipital infarction . Right homonymous hemianopia . Left atrial thrombus . Atrial fibrillation . The condition is she is alert and oriented x 3 . There is mild dysnomia . There is right homonomous hemianopia . There is normal strength . There is normal sensation. She has been changed over to xarelto 20 mg po qd on discussion with cardiology on cojoint aspirin 81 mg po qd and lipitor 40 mg po qd . She had been previously on admission taking eliquis . She is walking 50 feet with rolling walker .80 yo lady with stroke . She has history of HTN , hyperlipidemia , depression, asthma , atrial fibrillation on eliquis. She has history of cerebral infarction with baseline mild aphasia with some trouble expressing herself . She presents to ER with confusion. 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 CTA head and neck with no large vessel occlusion . Patient with right homonomous hemianopsia . Troponin on admission 1200 felt to have acute NSTEMI placed on IV heparin . MRI of Head with left occipital infarction with small infarctions left inferior cerebellum along with left thalamus . Old left parietal and right frontal infarctions . Cardiac 2 D echo left atrium thrombus. Normal LVF EF 57 % . Heparin was held for 7 days with large right occipital infarction resumed yesterday .Patient acknowledges she missed [employer] two doses of eliquis . On exam she is alert and oriented x 3 . There is mild dysnomia . There is right homonomous hemianopia There is normal strength . There is normal sensation . Reflexes are brisker on right Impression Left occipital infarction . Right homonymous hemianopia . Cardiac thrombus atrial fibrillation Plan Awaiting rehabilitation placement . Will sign off . Please call if problem * Daisha York, OT - 06/06/2025 6:08 PM EDT Occupational Therapy Occupational Therapy Daily Treatment Note Facility/Department: [address] [place] Patient Name: Moustapha Alejandra : 1945 Date of Service: 06/06/2025 No chief complaint on file. Past Medical History: has no past medical history on file. Past Surgical History: has no past surgical history on file. Discharge Recommendations Discharge Recommendations: Patient would benefit from continued therapy after discharge Assessment Performance deficits / Impairments: Decreased ADL status;Decreased functional mobility ;Decreased endurance;Decreased balance;Decreased high-level IADLs;Decreased cognition;Decreased safe awareness Assessment: Patient continues to demonstrate limitations affecting ADL perfromance that is less then prior level of function. Recomend continued occupational therapy intervention during acute stay. REQUIRES OT FOLLOW-UP: Yes Activity Tolerance Activity Tolerance: Patient tolerated treatment well, Treatment limited secondary to decreased cognition Safety Devices Type of Devices: Gait belt, Heels elevated for pressure relief, Patient at risk for falls, Call light within reach, Nurse notified, Left in bed, Bed alarm in place AM-PAC AM-[facility] Daily Activity - Inpatient How much help is needed for putting on and taking off regular lower body clothing?: A Lot How much help is needed for bathing (which includes washing, rinsing, drying)?: A Lot How much help is needed for toileting (which includes using toilet, bedpan, or urinal)?: A Lot How much help is needed for putting on and taking off regular upper body clothing?: A Little How much help is needed for taking care of personal grooming?: A Little How much help for eating meals?: A Little AM-[facility] Inpatient Daily Activity Raw Score: 15 AM-[facility] Inpatient ADL T-Scale Score : 34.69 ADL Inpatient CMS 0-100% Score: 56.46 ADL Inpatient CMS G-Code Modifier : CK Restrictions/Precautions Restrictions/Precautions Activity Level: Up with Assist Required Braces or Orthoses?: No Position Activity Restriction Other Position/Activity Restrictions: SBP less than 200 Restraints Restraints Initially in Place: No Subjective General Patient assessed for rehabilitation services?: Yes Response to previous treatment: Patient with no complaints from previous session Family / Caregiver Present: Yes Diagnosis: Aphasia, CVA symptoms, L SHEET METAL PATTERN CUTTER infarcts Subjective Subjective: Patient agreeable to OT interevention/treatment General Comment Comments: RN cleared for OT interevention/treatment Pain Pre-Pain: 0 Post-Pain: 0 Objective Orientation Overall Orientation Status: Impaired Orientation Level: Oriented to situation;Oriented to person;Disoriented to time;Disoriented to situation Cognition Overall Cognitive Status: Exceptions Arousal/Alertness: Appears intact Following Commands: Follows multistep commands with repetition;Follows multistep commands with increased time Attention Span: Attends with cues to redirect Safety Judgement: Decreased awareness of need for assistance;Decreased awareness of need for safety Problem Solving: Assistance required to generate solutions;Assistance required to correct errors made;Assistance required to identify errors made;Decreased awareness of errors;Assistance required to implement solutions Insights: Decreased awareness of deficits Initiation: Requires cues for some Sequencing: Requires cues for some Activities of Daily Living Grooming: Contact guard assistance;Increased time to complete Grooming Skilled Clinical Factors: Pt ricko's oral hygiene with CGA while standing at sink to complete. Pt exhibits limited reach across midline with RUE and dysmetria, requiring assist to place soap on R hand for hand washing and able to wash face with set up LE Dressing: Moderate assistance LE Dressing Skilled Clinical Factors: Assist to thread RLE into breif, able to thread L LE, able topull over knees, needs assist to dross puller hips Toileting: Setup;Increased time to complete;Moderate assistance Toileting Skilled Clinical Factors: Assist with clothing ang hygeine Balance Balance Sitting: Without support (Pt ricko's sitting unsupported on EOB and on toilet with supervision static sitting, sba dynamic sitting) Standing: With support (Pt brien's standing with RW and CGA during transfers, functional mobility totoilet and at sink to complete face & hand washing) Transfers/Mobility Bed mobility Supine to Sit: Stand by assistance Sit to Supine: Minimal assistance Scooting: Stand by assistance Bed Mobility Comments: HOB elevated to ~40 degrees, using bed rail prn, Pt with increased time and effort to complete. Transfers Sit to stand: Contact guard assistance Stand to sit: Contact guard assistance Toilet Transfers Toilet - Technique: Ambulating Equipment Used: Standard toilet Toilet Transfer: Contact guard assistance Functional Mobility: Contact guard assistance;Increased time to complete;Setup Functional Mobility Skilled Clinical Factors: Pt ricko's functional mobility within room and bathroom with RW and CGA with verbal and visual cues for proper alignment of walker during functional mobility. Patient Education Patient Education Education Given To: Patient Education Provided: Role of Therapy;ADL Adaptive Strategies Education Method: Demonstration;Verbal Barriers to Learning: Cognition Education Outcome: Demonstrated understanding;Verbalized understanding;Continued education needed Goals Short Term Goals Time Frame for Short Term Goals: Pt will by d/c Short Term Goal 1: demo good safety awareness during func mob around room using LRAD PRN at SUP Short Term Goal 2: demo ADL UB bathing/dressing activity at mod I Short Term Goal 3: demo ADL LB bathing/dressing activity at SBA Short Term Goal 4: demo all bed mobility, including rolling, using bedrails PRN at mod I Short Term Goal 5: demo bending/reaching high/low func activity for 8 min+, while standing, using LRAD PRN and mod I Plan Occupational Therapy Plan Times Per Week: 4-5x Current Treatment Recommendations: Balance training, Functional mobility training, Endurance training, Pain management, Safety education & training, Patient/Caregiver education & training, Equipment evaluation, education, & procurement, Self-Care / ADL, Home management training Minutes OT Individual Minutes Time In: 1720 Time Out: 1758 Minutes: 38 Time Code Minutes Timed Code Treatment Minutes: 38 Minutes * Kendy Hernandez, DO - 06/06/2025 6:01 PM EDT [email or web address] [facility] IN-PATIENT SERVICE [facility] Progress Note 06/06/2025 6:01 PM Name: Moustapha Alejandra Acct: [id number] Room: 0143/0143-01 IP Day: 7 Admit Date: 05/30/2025 6:58 PM PCP: Hannah Gruber MD Code Status: Full Code Subjective: Patient evaluated at bedside, states she is feeling better today. Family is present at bedside. No acute overnight events. Brief History: Per HPI: 80-year-old female with past medical history of CVA(history of aphasia improved after speech therapy), anxiety, asthma, depression, history of right hip fracture uses walker for ambulation, hypertension, atrial fibrillation?? On Eliquis. Presented to outside hospital due to aphasia. Lab workup at outside hospital sodium 135, potassium 3.6, chloride 100, BUN/creatinine 21/0.7, blood glucose 111, normal LFTs, troponin 1166--- 1555. CBC WBC 7.5, hemoglobin 8.9, platelet 315. CT head showed acute/subacute infarct involving the left SHEET METAL PATTERN CUTTER distribution with mild local mass effect no hemorrhagic transformation at this time. Chronic areas of remote infarct. Telestroke was consulted at outside hospital. Patient was out of the window for DKA. Patient low NIHSS score of 1 and already on anticoagulation. Cardiology consulted due to elevated troponin and recommended starting patient on heparin drip. Evaluated patient at bedside. Patient is currently alert oriented to herself and was able to tell me her date of . Unable to tell me the place. Patient denies any weakness in upper and lower extremities or sensory deficits. She woke up around 4 AM last night and noticed unable to find words for simple things and difficulty remembering names of things. Daughter mentioned that patient had a stroke before after which she developed significant aphasia and she went through speech therapy and improved significantly. All the symptoms are new. Patient was unable to tell me the name of simple things like pen, glasses or mobile phone. Patient currently denies any chest pain, shortness of breath, nausea, vomiting, abdominal pain, dysuria urgency or frequency. Patient is scheduled for Watchman procedure outpatient. Medications: Allergies: Allergies Allergen Reactions Demerol Hcl [Meperidine] Environmental/Seasonal Iodinated Contrast Media Current Meds: Scheduled Meds: rivaroxaban 20 mg Oral Dinner lidocaine 1 patch TransDERmal Daily aspirin 81 mg Oral Daily sodium chloride flush 5-40 mL IntraVENous 2 times per day atorvastatin 40 mg Oral Nightly Continuous Infusions: sodium chloride PRN Meds: melatonin, sodium chloride flush, sodium chloride, potassium chloride OR potassium alternative oral replacement OR potassium chloride, magnesium sulfate, ondansetron OR ondansetron, polyethylene glycol, acetaminophen OR acetaminophen Data: Past Medical History: has no past medical history on file. Social History: Family History: No family history on file. Vitals: BP (!) 137/55 Pulse 88 Temp 99.3 F (37.4 C) (Oral) Resp 22 Wt 80.7 kg (177 lb 14.6 oz) SpO2 96% Temp (24hrs), Av.3 F (36.8 C), Min:97.4 F (36.3 C), Max:99.3 F (37.4 C) No results for input(s): POCGLU in the last 72 hours. I/O (24Hr): Intake/Output Summary (Last 24 hours) at 06/06/2025 1801 Last data filed at 06/06/2025 0900 Gross per 24 hour Intake 300 ml Output 950 ml Net -650 ml Labs: Hematology: Recent Labs 06/04/25 0632 06/05/25 1607 06/06/25 0334 WBC 7.9 9.2 7.0 RBC 3.65* 4.01 3.99 HGB 8.3* 9.2* 9.1* HCT 29.1* 32.0* 33.6* MCV 79.7* 79.8* 84.2 MCH 22.7* 22.9* 22.8* MCHC 28.5 28.8 27.1* RDW 15.8* 15.7* 15.9* PLT 266 296 264 MPV 10.1 10.2 10.1 INR -- 1.0 -- Chemistry: Recent Labs 06/06/25 0334 NA 138 K 4.1 CL 105 CO2 22 GLUCOSE 107* BUN 19 CREATININE 0.8 MG 1.9 ANIONGAP 11 LABGLOM 74 CALCIUM 9.2 PHOS 4.4 No results for input(s): LABALBU , LABA1C , M2OQIXS , FT4 , TSH , AST , ALT , LDH , GGT , ALKPHOS , BILITOT , BILIDIR , AMMONIA , AMYLASE , LIPASE , LACTATE , CHOL , HDL , CHOLHDLRATIO , TRIG , VLDL , LHK81GQ , PHENYTOIN , PHENYF , URICACID , POCGLU in the last 72 hours. Invalid input(s): PROT , O8AZIOZ , LABGGT , LDLCHOLESTEROL ABG:No results found for: POCPH , PHART , PH , POCPCO2 , RVI1ICO , PCO2 , POCPO2 , PO2ART , PO2 , POCHCO3 , SVS9LVD , HCO3 , NBEA , PBEA , BEART , BE , THGBART , THB , WUR1SAD , PVXO3ZUV , M4WOJWQK , O2SAT , FIO2 No results found for: SPECIAL No results found for: CULTURE Radiology: MRI BRAIN WO CONTRAST Addendum Date: 05/31/2025 ADDENDUM #1 The important findings were discussed with Dr. Kendy eHrnandez by Dr. Ayad Lacy at 05/31/2025 05:39 PM. 1. Result Date: 05/31/2025 1. Acute infarct involving the majority of the left SHEET METAL PATTERN CUTTER territory, with smaller acute infarcts alsoseen in the anterior/inferior left cerebellar hemisphere and left thalamus. No associated hemorrhage or mass effect. 2. 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 3. Mild burden of scattered white matter FLAIR hyperintensities, likely representing chronic microangiopathic ischemic changes in this age group. Physical Examination: Physical Exam HENT: Head: Normocephalic. Cardiovascular: Rate and Rhythm: Normal rate. Heart sounds: No murmur heard. No friction rub. No gallop. Pulmonary: Breath sounds: No wheezing, rhonchi or rales. Abdominal: Tenderness: There is no abdominal tenderness. There is no guarding or rebound. Musculoskeletal: General: No swelling. Skin: General: Skin is warm. Neurological: Mental Status: She is alert. Comments: Alert and oriented x 1-2, noted to have expressive aphasia Psychiatric: Mood and Affect: Mood normal. Assessment: Hospital Problems Last Modified POA * (Principal) Stroke-like symptoms 05/30/2025 Yes NSTEMI (non-ST elevated myocardial infarction) ([facility]) 05/31/2025 Yes Hyperlipidemia 05/31/2025 Yes Hypertension 05/31/2025 Yes Depression 05/31/2025 Yes Cerebrovascular accident (CVA) ([facility]) 05/31/2025 Yes Expressive aphasia 05/31/2025 Yes ACS (acute coronary syndrome) ([facility]) 06/01/2025 Yes Cardiomyopathy ([facility]) 06/01/2025 Yes Chest pain 06/01/2025 Yes 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 ([facility]) 06/01/2025 Yes Abnormal echocardiogram 06/03/2025 Yes CVA (cerebrovascular accident due to intracerebral hemorrhage) ([facility]) 06/04/2025 Yes High risk medication use 06/05/2025 Yes Homonymous hemianopia, right 06/06/2025 Yes Plan: Acute infarct of the left SHEET METAL PATTERN CUTTER Smaller acute infarcts in the anterior/inferior left cerebellar hemisphere and left thalamus Small chronic transcortical infarcts in the frontal lobes Chronic lacunar infarct in the left cerebellar hemisphere MRI brain: Acute infarct involving majority of left SHEET METAL PATTERN CUTTER with smaller acute infarcts in the left cerebellar hemisphere and left thalamus Neurology following Continue Lipitor and aspirin Continue PT/OT Patient was started on IV heparin on 06/05 and transitioned to p.o. Xarelto 20 mg daily Neurology and cardiology following, agreeable with the plan She is stable to be discharged to [facility] can accept tomorrow per Case management NSTEMI HLD LA thrombus Echo: EF 57%, large echodensity noted in left atrium Continue aspirin and Lipitor Continue Xarelto Acute hypoxic respiratory failure likely secondary to above, resolved Paroxysmal A-fib S/p loop recorder placement Eliquis 5 mg twice daily at home, missed 2 doses Continue Xarelto Kendy Hernandez DO 06/06/2025 6:01 PM * Edis Kowalski MD - 06/06/2025 3:19 PM EDT [facility] Neurology IN-PATIENT SERVICE [facility] Neurology Consult Note Date: 06/06/2025 Patient name: Moustapha Alejandra Date of admission: 05/30/2025 6:58 PM Account: [id number] Date of : 1945 PCP: Hannah Gruber MD Room: 0143/0143-01 Code Status: Full Code Chief Complaint: Aphasia History Obtained From: patient, electronic medical record History of Present Illness: Per consult note The patient is a 80 y.o. female with significant past medical history of hypertension, hyperlipidemia, depression, asthma, history of CVA, A-fib? (On Eliquis) who was referred to us from [facility]. The patient initially presented to the emergency department due to confusion and expressive aphasia. Stroke alert was called on the patient and her NIHSS was 1. Last known well was the night before the day of presentation 04/28/2025. TNK was not given as the patient was outside the window and because of history of anticoagulation. She was loaded with aspirin 325 mg. The patient denied any headaches, blurred vision, falling downs, head trauma, weakness/numbness or any other complaints. Patient was found to have a troponin level of 1166. EKG was interpreted as with no acute findings. Cardiology was consulted, the patient is to be treated as a case of ACS with heparin drip. At arrival and initial evaluation, the patient was alert, oriented to place/time. Motor/sensory functions were intact all over. NIH was 3, for mild aphasia and not answering age/month. 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 No hemorrhagic transformation at that time. Chronic areas of remote infarcts. CTA did not show any evidence of LVOs. Of note the patient's history of CVA left her with expressive aphasia. Her daughter mentioned that she improved significantly after following up with speech therapy, and this was not her baseline. 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 Patient desaturated last night to 51% and neurology was requested for evaluation due to change in neuroexam due to agitation Will repeat CT head today to rule out any hemorrhagic conversion. 06/02:- Patient seen and examined at bedside. Patient is complaining of back pain overnight and is on Mantador for the same. Patient was sleeping the morning, easily arousable. Patient CT scan of head without contrast 06/01/25 did not reveal any hemorrhagic transformation. Echocardiogram is still pending. Heparin is on hold. 06/03 :-Patient seen and examined at bedside. AO x 2. Has difficulty remembering the name of the president and month of the year. Echo revealed a large echodensity in the left atrium of the. Cardiology recommended DIAMOND. Cardiology is recommending anticoagulation YUE. 06/04: Patient was seen and examined at bedside. Vitally stable. Systolic blood pressure in the morning was 136/46. DIAMOND pending, cardiology on board due to LV thrombus. Will decide on anticoagulation,ideally should be 10 to 14 days due to right hemispheric stroke.Plan to repeat CT head tomorrow, will start heparin without bolus if stable and then transition to DOAC afterwards 06/05: Patient seen and examined at bedside. Still having some aphasia, mostly expressive. Repeat CThead on 06/05 showed left occipital lobe infarct with new faint curvilinear areas of increased attenuation suggesting cortical laminar necrosis, petechial hemorrhage is considered less likely. Will plan on starting heparin. 06/06: Patient seen and examined, no acute event overnight, alert oriented x 2, NIH 5, plan to switch Eliquis to Xarelto per cardiology, okay to discharge from neurostandpoint Past Medical History: No past medical history on file. Past Surgical History: No past surgical history on file. Medications Prior to Admission: Prior to Admission medications Medication Sig Start Date End Date Taking? Authorizing Provider aspirin 81 MG EC tablet Take 1 tablet by mouth daily 06/03/25 Yes Kendy Hernandez DO atorvastatin (LIPITOR) 40 MG tablet Take 1 tablet by mouth nightly 06/03/25 Yes Kendy Hernandez DO Allergies: Demerol hcl [meperidine], Environmental/seasonal, and Iodinated contrast media Social History: Tobacco: has no history on file for tobacco use. Alcohol: has no history on file for alcohol use. Drug Use: has no history on file for drug use. Family History: No family history on file. Review of Systems: Review of Systems Constitutional: Negative. HENT: Negative. Eyes: Positive for visual disturbance. Respiratory: Negative. Cardiovascular: Negative. Gastrointestinal: Negative. Endocrine: Negative. Musculoskeletal: Negative. Allergic/Immunologic: Negative. Neurological: Positive for speech difficulty. Negative for dizziness, tremors, seizures, syncope, facial asymmetry, weakness, light-headedness, numbness and headaches. Physical Exam: BP (!) 144/57 Pulse 81 Temp 98.7 F (37.1 C) (Oral) Resp 21 Wt 80.7 kg (177 lb 14.6 oz) SpO2 96% Temp (24hrs), Av.2 F (36.8 C), Min:97.4 F (36.3 C), Max:98.8 F (37.1 C) No results for input(s): POCGLU in the last 72 hours. Intake/Output Summary (Last 24 hours) at 06/06/2025 1519 Last data filed at 06/06/2025 0900 Gross per 24 hour Intake 300 ml Output 950 ml Net -650 ml Neurological Exam GENERAL Appears comfortable and in no distress HEENT NC/ AT HEART S1 and S2 heard; palpation of pulses: radial pulse NECK Supple and no bruits heard MENTAL STATUS: Alert, oriented to place/person not time, mild to moderate aphasia, intact repetition, impaired naming CRANIAL NERVES: II - complete right homonymous hemianopsia III,IV, - PERR, EOMs full, no ptosis V - Normal facial sensation VII - Normal facial symmetry VIII - Intact hearing IX,X - Symmetrical palate XI - Symmetrical shoulder shrug XII - Midline tongue, no atrophy MOTOR FUNCTION: RUE: Significant for good strength of grade 5/5 in proximal and distal muscle groups LUE: Significant for good strength of grade 5/5 in proximal and distal muscle groups RLE: Significant for good strength of grade 5/5 in proximal and distal muscle groups LLE: Significant for good strength of grade 5/5 in proximal and distal muscle groups Normal bulk, normal tone and no involuntary movements, no tremor SENSORY FUNCTION: Normal touch, normal pinprick, normal vibration, normal proprioception CEREBELLAR FUNCTION: Intact fine motor control over upper limbs and lower limbs REFLEX FUNCTION: Symmetric in upper and lower extremities, no Babinski sign STATION and GAIT Deferred INITIAL NIH STROKE SCALE: 1a. Level of consciousness: 0 - alert; keenly responsive 1b. Level of consciousness questions: 2 - answers neither question correctly 1c. Level of consciousness questions: 0 - performs both tasks correctly 2. Best Gaze: 0 - normal 3. Visual: 2 4. Facial Palsy: 0 5a. Motor left arm: 0 - no drift, limb holds 90 (or 45) degrees for full 10 seconds 5b. Motor right arm: 0 - no drift, limb holds 90 (or 45) degrees for full 10 seconds 6a. Motor left le - no drift; leg holds 30 degree position for full 5 seconds 6b. Motor right le - no drift; leg holds 30 degree position for full 5 seconds 7. Limb Ataxia: 0 - absent 8. Sensory: 0 - normal; no sensory loss 9. Best Language: 1 - mild to moderate aphasia; some obvious loss of fluency or facility of comprehension without significant limitation on ideas expressed or form of expression. Reduction of speech and/or comprehension, however, makes conversation about provided materials difficult or impossible. For example, in conversation about provided materials, examiner can identify picture or naming card content from patient's response. 10. Dysarthria: 0 - normal 11. Extinction and Inattention: 0 - no abnormality TOTAL: 5 Investigations: Laboratory Testing: Recent Results (from the past 24 hours) CBC Collection Time: 06/05/25 4:07 PM Result Value Ref Range WBC 9.2 3.5 - 11.3 k/uL RBC 4.01 3.95 - 5.11 m/uL Hemoglobin 9.2 (L) 11.9 - 15.1 g/dL Hematocrit 32.0 (L) 36.3 - 47.1 % MCV 79.8 (L) 82.6 - 102.9 fL MCH 22.9 (L) 25.2 - 33.5 pg MCHC 28.8 28.4 - 34.8 g/dL RDW 15.7 (H) 11.8 - 14.4 % Platelets 296 138 - 453 k/uL MPV 10.2 8.1 - 13.5 fL NRBC Automated 0.0 0.0 per 100 WBC APTT Collection Time: 06/05/25 4:07 PM Result Value Ref Range APTT 32.9 23.0 - 36.5 sec Protime-INR Collection Time: 06/05/25 4:07 PM Result Value Ref Range Protime 13.6 11.7 - 14.9 sec INR 1.0 Anti-XA, Heparin Collection Time: 06/05/25 4:07 PM Result Value Ref Range Anti-XA Unfrac Heparin <0.10 IU/L Anti-XA, Heparin Collection Time: 06/05/25 10:20 PM Result Value Ref Range Anti-XA Unfrac Heparin 0.20 IU/L Anti-XA, Heparin Collection Time: 06/06/25 3:34 AM Result Value Ref Range Anti-XA Unfrac Heparin 0.54 IU/L Basic Metabolic Panel Collection Time: 06/06/25 3:34 AM Result Value Ref Range Sodium 138 136 - 145 mmol/L Potassium 4.1 3.7 - 5.3 mmol/L Chloride 105 98 - 107 mmol/L CO2 22 20 - 31 mmol/L Anion Gap 11 9 - 16 mmol/L Glucose 107 (H) 74 - 99 mg/dL BUN 19 8 - 23 mg/dL Creatinine 0.8 0.6 - 0.9 mg/dL Est, Glom Filt Rate 74 >60 mL/min/1.73m2 Calcium 9.2 8.6 - 10.4 mg/dL CBC with Auto Differential Collection Time: 06/06/25 3:34 AM Result Value Ref Range WBC 7.0 3.5 - 11.3 k/uL RBC 3.99 3.95 - 5.11 m/uL Hemoglobin 9.1 (L) 11.9 - 15.1 g/dL Hematocrit 33.6 (L) 36.3 - 47.1 % MCV 84.2 82.6 - 102.9 fL MCH 22.8 (L) 25.2 - 33.5 pg MCHC 27.1 (L) 28.4 - 34.8 g/dL RDW 15.9 (H) 11.8 - 14.4 % Platelets 264 138 - 453 k/uL MPV 10.1 8.1 - 13.5 fL NRBC Automated 0.0 0.0 per 100 WBC Neutrophils % 69 (H) 36 - 65 % Lymphocytes % 16 (L) 24 - 43 % Monocytes % 9 3 - 12 % Eosinophils % 3 1 - 4 % Basophils % 1 0 - 2 % Immature Granulocytes % 2 (H) 0 % Neutrophils Absolute 4.83 1.50 - 8.10 k/uL Lymphocytes Absolute 1.12 1.10 - 3.70 k/uL Monocytes Absolute 0.63 0.10 - 1.20 k/uL Eosinophils Absolute 0.21 0.00 - 0.44 k/uL Basophils Absolute 0.07 0.00 - 0.20 k/uL Immature Granulocytes Absolute 0.14 0.00 - 0.30 k/uL Morphology ANISOCYTOSIS PRESENT Magnesium Collection Time: 06/06/25 3:34 AM Result Value Ref Range Magnesium 1.9 1.6 - 2.4 mg/dL Phosphorus Collection Time: 06/06/25 3:34 AM Result Value Ref Range Phosphorus 4.4 2.5 - 4.5 mg/dL Anti-XA, Heparin Collection Time: 06/06/25 9:31 AM Result Value Ref Range Anti-XA Unfrac Heparin 0.52 IU/L Assessment : Primary Problem Stroke-like symptoms Active Hospital Problems Diagnosis Date Noted High risk medication use [Z79.899] 06/05/2025 CVA (cerebrovascular accident due to intracerebral hemorrhage) (HCC) [I61.9] 06/04/2025 Abnormal echocardiogram [R93.1] 06/03/2025 ACS (acute coronary syndrome) (HCC) [I24.9] 06/01/2025 Cardiomyopathy (HCC) [I42.9] 06/01/2025 Chest pain [R07.9] 06/01/2025 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 #Likely cardioembolic, given atrial fibrillation and recent interruption of anticoagulation. MRI on 05/30/2025 showed acute infarct involving the majority of the left SHEET METAL PATTERN CUTTER territory, with smalleracute infarct also seen in the anterior/inferior left cerebellar hemisphere and left thalamus as well as small transcortical infarct in left frontal focus and chronic lacunar infarct in the left cerebellar hemisphere, mild burden of scattered white matter hyper intensities Repeat CT head from 06/01/2025 did not reveal any hemorrhagic transformation. Repeat CT head on 06/05/2025 showed left occipital infarct with new faint curvilinear areas of increased attenuation, suggestive of cortical laminar necrosis. Neurocheck per protocol. Patient is currently on aspirin, no need from neurostandpoint Recommend to switch Eliquis to Xarelto, cardiology agree with that, echocardiogram revealed left atrial echodensity. Cardiology recommended DIAMOND. Loop recorder interrogation Lipid panel revealed total cholesterol 172, HDL 82, LDL 62 and HbA1c 5.5, on Lipitor 40 mg Blood pressure goal less than [address] head today Rest of management per primary [facility] and Family Stroke Education Patient and/or family Education discussed today: embolic atrial fibrillation and hypertension Stroke Education Topics: Medication Compliance Importance of Followup Patient or family members expressed understanding on topics that were discussed and all their questions were answered. Consultations: IP CONSULT TO CARDIOLOGY IP CONSULT TO NEUROLOGY Follow-up further recommendations after discussing the case with attending The plan was discussed with the patient, patient's family and the medical staff. Patient is admitted as inpatient status because of co-morbidities listed above, severity of signs and symptoms as outlined, requirement for current medical therapies and most importantly because of direct risk to patient if care not provided in a hospital setting. Copy sent to Hannah Islas MD Mustafa Abdul Kareem, MD Neurology Service 06/06/2025 3:19 PM Cosigned by Jean Paul Sadler MD at 06/06/2025 5:43 PM EDT Associated attestation - Jean Paul Sadler MD - 06/06/2025 5:43 PM EDT I have discussed the care of patient including pertinent history and exam findings, with the Neurology resident. I have seen and examined the patient and the bourgeois elements of all parts of the encounter have been performed by me. I agree with the assessment, plan and orders as documented by the fellow/resident, after I modified exam findings and plan of treatments, and the final version is my approved version of the assessment. 80 yo lady with stroke . She has history of HTN , hyperlipidemia , depression, asthma , atrial fibrillation on eliquis 5 mg po bid . She has history of cerebral infarction with baseline mild aphasia with some trouble expressing herself . She presents to ER with confusion. Head CT with subacute leftPCA infarction . CTA head and neck with no large vessel occlusion . Patient with right homonomous hemianopsia . Troponin on admission 1200 felt to have acute NSTEMI placed on IV hepatin . MRI of Headwith left occipital infarction with small infarctions left inferior cerebellum along with left thalamus . Old left parietal and right frontal infarctions . Cardiac 2 D echo left atrium thrombus . Normal LVF EF 57 % . Heparin was held for 7 days with large right occipital infarction resumed yesterday .Patient acknowledges she missed two doses of eliquis . She is walking 50 feet with rolling walker On exam she is alert and oriented x 3 . There is mild dysnomia . There is right homonomous hemianopia There is normal strength . There is normal sensation . Reflexes are brisker on right Impression Left occipital infarction . Right homonymous hemianopia . Cardiac thrombus atrial fibrillation Plan Discussed with cardiology to exchange clerk to xarelto 20 mg po qd , ASA 81 mg po qd staying lipitor 40 mg po qd . .Ready for rehabilitation * Latoya Felix APRN - [employer] - 06/06/2025 11:51 AM EDT Images from the original note were not included. [employer] Progress Note Date: 06/06/2025 Patient name: Moustapha Alejandra Date of admission: 05/30/2025 6:58 PM Date of : 1945 PCP: Hannah Gruber MD Reason for Admission: Stroke-like symptoms [R29.90] Elevated troponin [R79.89] CVA (cerebrovascular accident due to intracerebral hemorrhage) ([facility]) [I61.9] Subjective: Clinical Changes / Abnormalities:Pt seen and examined in the room. Pt resting in bed. Family in room. Pt denies any CP or sob. Labs, vitals and tele reviewed. Heparin on Medications: Scheduled Meds: lidocaine 1 patch TransDERmal Daily aspirin 81 mg Oral Daily sodium chloride flush 5-40 mL IntraVENous 2 times per day atorvastatin 40 mg Oral Nightly Continuous Infusions: heparin (PORCINE) Infusion 12 Units/kg/hr (06/06/25 1044) sodium chloride CBC: Recent Labs 06/04/25 0632 06/05/25 1607 06/06/25 0334 WBC 7.9 9.2 7.0 HGB 8.3* 9.2* 9.1* PLT 266 296 264 BMP: Recent Labs 06/06/25 0334 NA 138 K 4.1 CL 105 CO2 22 BUN 19 CREATININE 0.8 GLUCOSE 107* Hepatic: No results for input(s): AST , ALT , BILITOT , ALKPHOS in the last 72 hours. Invalid input(s): ALB Troponin: No results for input(s): TROPHS in the last 72 hours. BNP: No results for input(s): BNP in the last 72 hours. Lipids: No results for input(s): CHOL , HDL in the last 72 hours. Invalid input(s): LDLCALCU INR: Recent Labs 06/05/25 160 INR 1.0 ECHO 06/02/25 Left Atrium: Left atrium size is normal. [...] decreases greater than 50% during inspiration; therefore theestimated right atrial pressure is normal (~3 mmHg). IVC size is normal. Image quality is adequate. Objective: Vitals: BP (!) 147/56 Pulse 80 Temp 97.4 F (36.3 C) (Temporal) Resp 14 Wt 80.7 kg (177 lb 14.6 oz) SpO2 100% General appearance: alert and cooperative with exam HEENT: Head: Normocephalic, no lesions, without obvious abnormality. 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 Pt takes eliquis at home but has missed doses. Patient and family would like to avoid DIAMOND unless absolutely necessary as treatment would not change. Due to pt being AFib with CVA, pt is high risk for another CVA with a thrombus in [place]. Would recommend restarting AC YUE when ok with neuro. Now on heparin gtt. Neuro recommending to hold Eliquis 10-14 days after CVA, on heparin gtt Continue ASA/statin. No bleed at this time. We will follow Follows with [facility] Cardiology as outpt [employer] [phone] * Neil Freitas PTA - 06/05/2025 3:50 PM EDT Physical Therapy Facility/Department: [address] [place] Physical Therapy Daily Treatment Note Patient Name: Moustapha Alejandra : 1945 Date of Service: 06/05/2025 No chief complaint on file. Past Medical History: has no past medical history on file. Past Surgical History: has no past surgical history on file. Discharge Recommendations Discharge Recommendations: Patient able to tolerate 3 hours of therapy per day PT Equipment Recommendations Equipment Needed: No Other: pt owns RW Assessment Body Structures, Functions, Activity Limitations Requiring Skilled Therapeutic Intervention: Decreased functional mobility ;Decreased strength;Decreased safe awareness;Decreased balance;Decreased posture;Decreased endurance;Decreased vision/visual deficit Assessment: Pt presenting with mobility deficits requriing modA to perform sit- >supine transfer.Pt CGA for sit<>stands with RW. Pt amb 50ft + 50ft with standing rest break utilizing RW and CGA. Pt would benefit from further therapy services before retuning home in order to facilitate a further increase in strength and balance. Therapy Prognosis: Good Activity Tolerance Activity Tolerance: Patient tolerated treatment well, Treatment limited secondary to decreased cognition Safety Devices Type of Devices: Gait belt, Heels elevated for pressure relief, Patient at risk for falls, Call light within reach, Nurse notified, Left in chair -[facility] Basic Mobility - Inpatient How much help is needed turning from your back to your side while in a flat bed without using bedrails?: A Little How much help is needed moving from lying on your back to sitting on the side of a flat bed withoutusing bedrails?: A Little How much help is needed moving to and from a bed to a chair?: A Little How much help is needed standing up from a chair using your arms?: A Little How much help is needed walking in hospital room?: A Little How much help is needed climbing 3-5 steps with a railing?: Total [facility] Inpatient Mobility Raw Score : 16 [facility] Inpatient T-Scale Score : 40.78 Mobility Inpatient [facility] 0-100% Score: 54.16 Mobility Inpatient [facility] G-Code Modifier : CK Restrictions/Precautions Restrictions/Precautions Activity Level: Up with Assist Required Braces or Orthoses?: No Position Activity Restriction Other Position/Activity Restrictions: SBP less than 200 Restraints Restraints Initially in Place: No Subjective General Chart Reviewed: No Patient assessed for rehabilitation services?: Yes Response To Previous Treatment: Patient with no complaints from previous session. Family/Caregiver Present: No Follows Commands: Impaired (pt confused but pleasant, easily redirected, follows commands with increased time and repetition) General General Comments: Pt retired to bed supine with call light and RN notified. Subjective Subjective: Pt and RN agreeable to tx session, Pt supine in bed upon arrival, pt pleasant and cooperative t/o session. Pain Pre-Pain: 0 Post-Pain: 0 Objective Orientation Overall Orientation Status: Impaired Orientation Level: Oriented to situation;Oriented to person;Disoriented to time;Disoriented to situation (Pt utilized cheat sheet for date) Cognition Overall Cognitive Status: Exceptions Arousal/Alertness: Appears intact Following Commands: Follows multistep commands with repetition;Follows multistep commands with increased time Attention Span: Attends with cues to redirect Memory: Impaired Safety Judgement: Decreased awareness of need for assistance;Decreased awareness of need for safety Problem Solving: Assistance required to generate solutions;Assistance required to correct errors made;Assistance required to identify errors made;Decreased awareness of errors;Assistance required to implement solutions Insights: Decreased awareness of deficits Initiation: Requires cues for some Sequencing: Requires cues for some Cognition Comment: Pt with minimal expressive aphasia. Mobility Bed mobility Supine to Sit: Stand by assistance Sit to Supine: Partial/Moderate assistance (B LE progression and trunk control) Scooting: Stand by assistance Bed Mobility Comments: HOB elevated to ~40 degrees, Pt with increased time and effort to complete. Transfers Sit to Stand: Contact guard assistance Stand to Sit: Contact guard assistance Comment: Assessed with RW, Pt completed x 3 sit<>stands. Pt required verbal cues for UE hand placement with poor return utilizing RW to come to stand. Ambulation Surface: Level tile Device: Rolling Walker Assistance: Contact guard assistance Quality of Gait: RW too far in fron, Unsteady, path deviation Gait Deviations: Decreased step length;Decreased step height;Deviated path Distance: 50ft + 50ft with standing rest break Comments: Pt required verbal cues to maintain MARCOS within RW with poor return. More Ambulation?: No Stairs/Curb Stairs?: No Balance Balance Posture: Good Sitting - Static: Good;- Sitting - Dynamic: Good;- Standing - Static: Fair;+ Standing - Dynamic: Fair Comments: Assessed sitting EOB and Standing with RW Exercise PT Exercises Exercise Treatment: Standing B LE exercise: heel raises, hip flexion x 10 reps Static Standing Balance Exercises: Narrow MARCOS x 1 x 30 sec, Narrow MARCOS with eyes close x 1 x 30 sec. modified tandem stance x 1 x 3o sec ea Oral with verbal cues to complete Patient Education Patient Education Education Given To: Patient Education Provided: Role of Therapy;Plan of Care;Transfer Training;Mobility Training Education Method: Verbal Barriers to Learning: Cognition Education Outcome: Verbalized understanding;Continued education needed Plan Physical Therapy Plan General Plan: 6-7 times per week Current Treatment Recommendations: Strengthening, ROM, Balance training, Functional mobility training, Transfer training, Gait training, Stair training, Neuromuscular re-education, Home exercise program, Safety education & training, Patient/Caregiver education & training, Equipment evaluation, education, & procurement, Positioning, Therapeutic activities Goals Patient Goals Patient Goals : go home Short Term Goals Time Frame for Short Term Goals: 12 visits Short Term Goal 1: independent bed mobility with HOB elevated ~30 degrees Short Term Goal 2: independent transfers Short Term Goal 3: independent gait with rollator x 100' Short Term Goal 4: independent stair ambulation x 3 steps with B HRs Minutes PT Individual Minutes Time In: 1510 Time Out: 1541 Minutes: 31 Time Code Minutes Timed Code Treatment Minutes: 23 Minutes Cosigned by Courtney Villareal PT at 06/07/2025 7:31 AM EDT * Regan Burdick MD - 06/05/2025 12:21 PM EDT [facility] Neurology IN-PATIENT SERVICE [facility] Neurology Consult Note Date: 06/05/2025 Patient name: Moustapha Alejandra Date of admission: 05/30/2025 6:58 PM Account: [id number] Date of : 1945 PCP: Hannah Gruber MD Room: 0143/0143-01 Code Status: Full Code Chief Complaint: Aphasia History Obtained From: patient, electronic medical record History of Present Illness: Per consult note The patient is a 80 y.o. female with significant past medical history of hypertension, hyperlipidemia, depression, asthma, history of CVA, A-fib? (On Eliquis) who was referred to us from [facility]. The patient initially presented to the emergency department due to confusion and expressive aphasia. Stroke alert was called on the patient and her NIHSS was 1. Last known well was the night before the day of presentation 04/28/2025. TNK was not given as the patient was outside the window and because of history of anticoagulation. She was loaded with aspirin 325 mg. The patient denied any headaches, blurred vision, falling downs, head trauma, weakness/numbness or any other complaints. Patient was found to have a troponin level of 1166. EKG was interpreted as with no acute findings. Cardiology was consulted, the patient is to be treated as a case of ACS with heparin drip. At arrival and initial evaluation, the patient was alert, oriented to place/time. Motor/sensory functions were intact all over. NIH was 3, for mild aphasia and not answering age/month. 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 No hemorrhagic transformation at that time. Chronic areas of remote infarcts. CTA did not show any evidence of LVOs. Of note the patient's history of CVA left her with expressive aphasia. Her daughter mentioned that she improved significantly after following up with speech therapy, and this was not her baseline. 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 Patient desaturated last night to 51% and neurology was requested for evaluation due to change in neuroexam due to agitation Will repeat CT head today to rule out any hemorrhagic conversion. 06/02:- Patient seen and examined at bedside. Patient is complaining of back pain overnight and is on Mantador for the same. Patient was sleeping the morning, easily arousable. Patient CT scan of head without contrast 06/01/25 did not reveal any hemorrhagic transformation. Echocardiogram is still pending. Heparin is on hold. 06/03 :-Patient seen and examined at bedside. AO x 2. Has difficulty remembering the name of the president and month of the year. Echo revealed a large echodensity in the left atrium of the. Cardiology recommended DIAMOND. Cardiology is recommending anticoagulation YUE. 06/04: Patient was seen and examined at bedside. Vitally stable. Systolic blood pressure in the morning was 136/46. DIAMOND pending, cardiology on board due to LV thrombus. Will decide on anticoagulation,ideally should be 10 to 14 days due to right hemispheric stroke.Plan to repeat CT head tomorrow, will start heparin without bolus if stable and then transition to DOAC afterwards 06/05: Patient seen and examined at bedside. Still having some aphasia, mostly expressive. Repeat CThead on 06/05 showed left occipital lobe infarct with new faint curvilinear areas of increased attenuation suggesting cortical laminar necrosis, petechial hemorrhage is considered less likely. Will plan on starting heparin. Past Medical History: No past medical history on file. Past Surgical History: No past surgical history on file. Medications Prior to Admission: Prior to Admission medications Medication Sig Start Date End Date Taking? Authorizing Provider aspirin 81 MG EC tablet Take 1 tablet by mouth daily 06/03/25 Yes Kendy Hernandez DO atorvastatin (LIPITOR) 40 MG tablet Take 1 tablet by mouth nightly 06/03/25 Yes Kendy Hernandez, Allergies: Demerol hcl [meperidine], Environmental/seasonal, and Iodinated contrast media Social History: Tobacco: has no history on file for tobacco use. Alcohol: has no history on file for alcohol use. Drug Use: has no history on file for drug use. Family History: No family history on file. Review of Systems: Review of Systems Constitutional: Negative. HENT: Negative. Eyes: Positive for visual disturbance. Respiratory: Negative. Cardiovascular: Negative. Gastrointestinal: Negative. Endocrine: Negative. Musculoskeletal: Negative. Allergic/Immunologic: Negative. Neurological: Positive for speech difficulty. Negative for dizziness, tremors, seizures, syncope, facial asymmetry, weakness, light-headedness, numbness and headaches. Physical Exam: BP (!) 143/80 Pulse 84 Temp 98.1 F (36.7 C) (Oral) Resp 22 Wt 80.2 kg (176 lb 12.9 oz) SpO2 97% Temp (24hrs), Av.5 F (36.9 C), Min:98.1 F (36.7 C), Max:99.1 F (37.3 C) No results for input(s): POCGLU in the last 72 hours. Intake/Output Summary (Last 24 hours) at 06/05/2025 1221 Last data filed at 06/05/2025 0400 Gross per 24 hour Intake -- Output 450 ml Net -450 ml Neurological Exam GENERAL Appears comfortable and in no distress HEENT NC/ AT HEART S1 and S2 heard; palpation of pulses: radial pulse NECK Supple and no bruits heard MENTAL STATUS: Alert, oriented to place/person not time, mild to moderate aphasia, intact repetition, impaired naming CRANIAL NERVES: II - complete right homonymous hemianopsia III,IV, - PERR, EOMs full, no ptosis V - Normal facial sensation VII - Normal facial symmetry VIII - Intact hearing IX,X - Symmetrical palate XI - Symmetrical shoulder shrug XII - Midline tongue, no atrophy MOTOR FUNCTION: RUE: Significant for good strength of grade 5/5 in proximal and distal muscle groups LUE: Significant for good strength of grade 5/5 in proximal and distal muscle groups RLE: Significant for good strength of grade 5/5 in proximal and distal muscle groups LLE: Significant for good strength of grade 5/5 in proximal and distal muscle groups Normal bulk, normal tone and no involuntary movements, no tremor SENSORY FUNCTION: Normal touch, normal pinprick, normal vibration, normal proprioception CEREBELLAR FUNCTION: Intact fine motor control over upper limbs and lower limbs REFLEX FUNCTION: Symmetric in upper and lower extremities, no Babinski sign STATION and GAIT Deferred INITIAL NIH STROKE SCALE: 1a. Level of consciousness: 0 - alert; keenly responsive 1b. Level of consciousness questions: 2 - answers neither question correctly 1c. Level of consciousness questions: 0 - performs both tasks correctly 2. Best Gaze: 0 - normal 3. Visual: 2 4. Facial Palsy: 0 5a. Motor left arm: 0 - no drift, limb holds 90 (or 45) degrees for full 10 seconds 5b. Motor right arm: 0 - no drift, limb holds 90 (or 45) degrees for full 10 seconds 6a. Motor left le - no drift; leg holds 30 degree position for full 5 seconds 6b. Motor right le - no drift; leg holds 30 degree position for full 5 seconds 7. Limb Ataxia: 0 - absent 8. Sensory: 0 - normal; no sensory loss 9. Best Language: 1 - mild to moderate aphasia; some obvious loss of fluency or facility of comprehension without significant limitation on ideas expressed or form of expression. Reduction of speech and/or comprehension, however, makes conversation about provided materials difficult or impossible. For example, in conversation about provided materials, examiner can identify picture or naming card content from patient's response. 10. Dysarthria: 0 - normal 11. Extinction and Inattention: 0 - no abnormality TOTAL: 5 Investigations: Laboratory Testing: No results found for this or any previous visit (from the past 24 hours). 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 ([facility]) [I63.432] 06/01/2025 NSTEMI (non-ST elevated myocardial infarction) ([facility]) [I21.4] 05/31/2025 Hyperlipidemia [E78.5] 05/31/2025 Hypertension [I10] 05/31/2025 Depression [F32.A] 05/31/2025 Cerebrovascular accident (CVA) ([facility]) [I63.9] 05/31/2025 Expressive aphasia [R47.01] 05/31/2025 Stroke-like symptoms [R29.90] 05/30/2025 80-year-old female with past history of hypertension, hyperlipidemia, atrial fibrillation (previously on Eliquis, missed 2 doses), asthma, depression, and prior CVA, now presenting with acute ischemic stroke. 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 #Likely cardioembolic, given atrial fibrillation and recent interruption of anticoagulation. MRI on 05/30/2025 showed acute infarct involving the majority of the left SHEET METAL PATTERN CUTTER territory, with smalleracute infarct also seen in the anterior/inferior left cerebellar hemisphere and left thalamus as well as small transcortical infarct in left frontal focus and chronic lacunar infarct in the left cerebellar hemisphere, mild burden of scattered white matter hyper intensities Repeat CT head from 06/01/2025 did not reveal any hemorrhagic transformation. Repeat CT head on 06/05/2025 showed left occipital infarct with new faint curvilinear areas of increased attenuation, suggestive of cortical laminar necrosis. Neurocheck per protocol. Heparin is on hold due to large hemispheric infarct, will plan on restarting when appropriate Patient is currently on aspirin Plan to restart Eliquis ~10-14 days post-stroke if no hemorrhagic transformation on follow-up imaging. Echocardiogram revealed left atrial echodensity. Cardiology recommended DIAMOND. Cardiology is recommending anticoagulation YUE. Loop recorder interrogation Lipid panel revealed total cholesterol 172, HDL 82, LDL 62 and HbA1c 5.5, on Lipitor 40 mg Blood pressure goal less than [address] head on 06/05/2025, start heparin without bolus if stable and afterwards plan to transition to DOAC PT/OT/[employer] Rest of management per primary Consider Stat CT scan of brain if any changes in neurological status is noted. Patient and Family Stroke Education Patient and/or family Education discussed today: embolic atrial fibrillation and hypertension Stroke Education Topics: Medication Compliance Importance of Followup Patient or family members expressed understanding on topics that were discussed and all their questions were answered. Consultations: IP CONSULT TO CARDIOLOGY IP CONSULT TO NEUROLOGY Follow-up further recommendations after discussing the case with attending The plan was discussed with the patient, patient's family and the medical staff. Patient is admitted as inpatient status because of co-morbidities listed above, severity of signs and symptoms as outlined, requirement for current medical therapies and most importantly because of direct risk to patient if care not provided in a hospital setting. Discussed with NERIS Zimmerman Copy sent to Hannah Islas MD Talha Nazir, MD Neurology Resident PGY-2 Neurology Service 06/05/2025 12:21 PM Cosigned by Neris Moralez MD at 06/05/2025 8:20 PM EDT Associated attestation - Neris Moralez MD - 06/05/2025 8:20 PM EDT Images from the original note were not included. Attending Physician Statement I have discussed the case of Mosutapha Alejandra including pertinent history and exam findings with the resident physician. I reviewed medications, clinical labs, x- rays and other diagnostic tests with theresident physician. I have seen and examined the patient and the bourgeois elements of the encounter have been performed by me. I agree with the assessment, plan and orders as documented by the resident physician. Briefly, this is a 80 y.o. female with hx of HTN, HLD, depression, A-fib (on Eliquis) and prior CVAwas admitted as a transfer from [facility] on 05[facility]30[facility]25 with confusion and expressive aphasia. Admit vitals 158/68, 81/min, 98.1 F. Patient was evaluated by stroke team; NIH stroke scale was 3 for decreased fluency of speech and orientation questions. Walsh not a candidate for IV TNK as she was outside of therapeutic window and also on anticoagulant therapy. Patient was loaded with aspirin 325 mg. On exam: Speech exam significant for expressive aphasia with perseveration, dysnomia but with good repetition. Does not blink well to threat on right side. Otherwise cranial nerve exam unremarkable; no sensorimotor deficits noted. 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 Also with chronic remote infarcts. CTA head and neck 05/30/2025 at [facility]: No evidence of LVO MRI brain 05/31/2025: Acute infarct involving majority of left SHEET METAL PATTERN CUTTER territory with a smaller acute infarcts also seen in left cerebellar hemisphere and left thalamus. Follow up CT head 06/01/2025: . Left occipital lobe, thalamus, and cerebellar hemisphere acute infarcts unchanged. No intracranial hemorrhage identified. Echo (05/31/25): Large echodensity in left atrium. EF 57%. Recommend DIAMOND. Follow-up CT head 06/05/2025: compared with 06/01 study., evolving left occipital lobe infarct with anew faint curvilinear areas of increased attenuation suggesting cortical laminar necrosis. Petechial hemorrhage considered less likely. Left thalamic and cerebellar infarcts stable. Impression and Plan: Ms. Moustapha Alejandra is a 80 y.o. female with Acute large left SHEET METAL PATTERN CUTTER territory ischemic infarct (with symptom onset 05/30/25) with additional left cerebellar and left thalamic infarcts; cerebral embolism in the setting of A-fib: At risk of hemorrhagic transformation; therefore anticoagulant, heparin was held. Follow-up CT head on 06/01 stable. NIH stroke scale is < 8; reviewed today's CT head findings; also d/w endovasc; ok to start iv heparinwith very cautious approach; no bolus; also to repeat ct head in am. Thrombus in left atrium: At high risk of embolism Recommend close monitoring with NIH stroke scale every shift Will continue monitoring with NIH stroke scale every shift and with any change in neurostatus; willget stat CT head (wo) to evaluate for any new ischemic stroke. Extensive and detailed discussion done, re risk of h'agic transformation, with patient and her daughter and granddaughter and patient's at bedside. Also patient's nurse at bedside. Will follow with you. This note was partially created using voice recognition software and is inherently subject to errors including those of syntax and sound alike substitutions which may escape proofreading. In such instances, original meaning may be extrapolated by contextual derivation. Neris Moralez MD 06/05/2025 1:27 PM * Kendy Hernandez, DO - 06/05/2025 11:51 AM EDT @[email or web address]@ [facility] IN-PATIENT SERVICE [facility] Progress Note 06/05/2025 11:51 AM Name: Moustapha Alejandra Acct: [id number] Room: 0143/0143-01 Day: 6 Admit Date: 05/30/2025 6:58 PM PCP: Hannah Gruber MD Code Status: Full Code Subjective: Patient evaluated at bedside, states she is feeling better today. Family is present at bedside. No acute overnight events. Brief History: Per HPI: 80-year-old female with past medical history of CVA(history of aphasia improved after speech therapy), anxiety, asthma, depression, history of right hip fracture uses walker for ambulation, hypertension, atrial fibrillation?? On Eliquis. Presented to outside hospital due to aphasia. Lab workup at outside hospital sodium 135, potassium 3.6, chloride 100, BUN/creatinine 21/0.7, blood glucose 111, normal LFTs, troponin 1166--- 1555. CBC WBC 7.5, hemoglobin 8.9, platelet 315. CT head showed acute/subacute infarct involving the left SHEET METAL PATTERN CUTTER distribution with mild local mass effect no hemorrhagic transformation at this time. Chronic areas of remote infarct. Telestroke was consulted at outside hospital. Patient was out of the window for DKA. Patient low NIHSS score of 1 and already on anticoagulation. Cardiology consulted due to elevated troponin and recommended starting patient on heparin drip. Evaluated patient at bedside. Patient is currently alert oriented to herself and was able to tell me her date of . Unable to tell me the place. Patient denies any weakness in upper and lower extremities or sensory deficits. She woke up around 4 AM last night and noticed unable to find words for simple things and difficulty remembering names of things. Daughter mentioned that patient had a stroke before after which she developed significant aphasia and she went through speech therapy and improved significantly. All the symptoms are new. Patient was unable to tell me the name of simple things like pen, glasses or mobile phone. Patient currently denies any chest pain, shortness of breath, nausea, vomiting, abdominal pain, dysuria urgency or frequency. Patient is scheduled for Watchman procedure outpatient. Medications: Allergies: Allergies Allergen Reactions Demerol Hcl [Meperidine] Environmental/Seasonal Iodinated Contrast Media Current Meds: Scheduled Meds: lidocaine 1 patch TransDERmal Daily aspirin 81 mg Oral Daily sodium chloride flush 5-40 mL IntraVENous 2 times per day atorvastatin 40 mg Oral Nightly Continuous Infusions: [Held by provider] heparin (PORCINE) Infusion Stopped (05/31/25 1445) sodium chloride PRN Meds: melatonin, heparin (porcine), heparin (porcine), sodium chloride flush, sodium chloride, potassium chloride OR potassium alternative oral replacement OR potassium chloride, magnesium sulfate, ondansetron OR ondansetron, polyethylene glycol, acetaminophen OR acetaminophen Data: Past Medical History: has no past medical history on file. Social History: Family History: No family history on file. Vitals: BP (!) 143/80 Pulse 84 Temp 98.1 F (36.7 C) (Oral) Resp 22 Wt 80.2 kg (176 lb 12.9 oz) SpO2 97% Temp (24hrs), Av.5 F (36.9 C), Min:98.1 F (36.7 C), Max:99.1 F (37.3 C) No results for input(s): POCGLU in the last 72 hours. I/O (24Hr): Intake/Output Summary (Last 24 hours) at 06/05/2025 1151 Last data filed at 06/05/2025 0400 Gross per 24 hour Intake -- Output 450 ml Net -450 ml Labs: Hematology: Recent Labs 06/04/25 0632 WBC 7.9 RBC 3.65* HGB 8.3* HCT 29.1* MCV 79.7* MCH 22.7* MCHC 28.5 RDW 15.8* PLT 266 MPV 10.1 Chemistry: No results for input(s): NA , K , CL , CO2 , GLUCOSE , BUN , CREATININE , MG , ANIONGAP , LABGLOM , GFRAA , CALCIUM , CAION , PHOS , PSA , PROBNP , TROPHS , CKTOTAL , CKMB , CKMBINDEX , MYOGLOBIN , DIGOXIN , LACTACIDWB in the last 72 hours. No results for input(s): LABALBU , LABA1C , X9JJYYH , FT4 , TSH , AST , ALT , LDH , GGT , ALKPHOS , BILITOT , BILIDIR , AMMONIA , AMYLASE , LIPASE , LACTATE , CHOL , HDL , CHOLHDLRATIO , TRIG , VLDL , UUG08UL , PHENYTOIN , PHENYF , URICACID , POCGLU in the last 72 hours. Invalid input(s): PROT , F7SZVMK , LABGGT , LDLCHOLESTEROL ABG:No results found for: POCPH , PHART , PH , POCPCO2 , RNG6IGP , PCO2 , POCPO2 , PO2ART , PO2 , POCHCO3 , GHE7NDZ , HCO3 , NBEA , PBEA , BEART , BE , THGBART , THB , XYR5FUN , LORC6GZE , E0SJTYNS , O2SAT , FIO2 No results found for: SPECIAL No results found for: CULTURE Radiology: MRI BRAIN WO CONTRAST Addendum Date: 05/31/2025 ADDENDUM #1 The important findings were discussed with Dr. Kendy Hernandez by Dr. Ayad Lacy at 05/31/2025 05:39 PM. 1. Result Date: 05/31/2025 1. Acute infarct involving the majority of the left SHEET METAL PATTERN CUTTER territory, with smaller acute infarcts alsoseen in the anterior/inferior left cerebellar hemisphere and left thalamus. No associated hemorrhage or mass effect. 2. 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 3. Mild burden of scattered white matter FLAIR hyperintensities, likely representing chronic microangiopathic ischemic changes in this age group. Physical Examination: Physical Exam HENT: Head: Normocephalic. Cardiovascular: Rate and Rhythm: Normal rate. Heart sounds: No murmur heard. No friction rub. No gallop. Pulmonary: Breath sounds: No wheezing, rhonchi or rales. Abdominal: Tenderness: There is no abdominal tenderness. There is no guarding or rebound. Musculoskeletal: General: No swelling. Skin: General: Skin is warm. Neurological: Mental Status: She is alert. Comments: Alert and oriented x 1-2, noted to have expressive aphasia Psychiatric: Mood and Affect: Mood normal. Assessment: Hospital Problems Last Modified POA * (Principal) Stroke-like symptoms 05/30/2025 Yes NSTEMI (non-ST elevated myocardial infarction) ([facility]) 05/31/2025 Yes Hyperlipidemia 05/31/2025 Yes Hypertension 05/31/2025 Yes Depression 05/31/2025 Yes Cerebrovascular accident (CVA) ([facility]) 05/31/2025 Yes Expressive aphasia 05/31/2025 Yes ACS (acute coronary syndrome) ([facility]) 06/01/2025 Yes Cardiomyopathy ([facility]) 06/01/2025 Yes Chest pain 06/01/2025 Yes 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 ([facility]) 06/01/2025 Yes Abnormal echocardiogram 06/03/2025 Yes CVA (cerebrovascular accident due to intracerebral hemorrhage) ([facility]) 06/04/2025 Yes Plan: Acute infarct of the left SHEET METAL PATTERN CUTTER Smaller acute infarcts in the anterior/inferior left cerebellar hemisphere and left thalamus Small chronic transcortical infarcts in the frontal lobes Chronic lacunar infarct in the left cerebellar hemisphere MRI brain: Acute infarct involving majority of left SHEET METAL PATTERN CUTTER with smaller acute infarcts in the left cerebellar hemisphere and left thalamus Neurology following Continue Lipitor and aspirin Continue PT/OT Repeat CT head 06/05 noted, await neurology recommendations NSTEMI HLD Echo: EF 57%, large echodensity noted in left atrium Cardiology following, recommending restarting anticoagulation Continue aspirin and Lipitor Acute hypoxic respiratory failure likely secondary to above, resolved Paroxysmal A-fib S/p loop recorder placement Eliquis 5 mg twice daily at home, missed 2 doses Holding anticoagulation for now Kendy Hernandez DO 06/05/2025 11:51 AM * Lanie Costa APRN - NP - 06/05/2025 8:33 AM EDT Images from the original note were not included. [employer] Progress Note Date: 06/05/2025 Patient name: Moustapha Alejandra Date of admission: 05/30/2025 6:58 PM Date of : 1945 PCP: Hannah Gruber MD Reason for Admission: Stroke-like symptoms [R29.90] Elevated troponin [R79.89] CVA (cerebrovascular accident due to intracerebral hemorrhage) (HCC) [I61.9] Subjective: Clinical Changes / Abnormalities:Pt seen and examined in the room. Pt resting in bed. Family in room. Pt denies any CP or sob. Labs, vitals and tele reviewed. Medications: Scheduled Meds: lidocaine 1 patch TransDERmal Daily aspirin 81 mg Oral Daily sodium chloride flush 5-40 mL IntraVENous 2 times per day atorvastatin 40 mg Oral Nightly Continuous Infusions: [Held by provider] heparin (PORCINE) Infusion Stopped (05/31/25 1445) sodium chloride CBC: Recent Labs 06/04/25 0632 WBC 7.9 HGB 8.3* PLT 266 BMP: No results for input(s): NA , K , CL , CO2 , BUN , CREATININE , GLUCOSE in the last 72 hours. Hepatic: No results for input(s): AST , ALT , BILITOT , ALKPHOS in the last 72 hours. Invalid input(s): ALB Troponin: No results for input(s): TROPHS in the last 72 hours. BNP: No results for input(s): BNP in the last 72 hours. Lipids: No results for input(s): CHOL , HDL in the last 72 hours. Invalid input(s): LDLCALCU INR: No results for input(s): INR in the last 72 hours. ECHO 06/02/25 Left Atrium: Left atrium size is normal. [...] decreases greater than 50% during inspiration; therefore theestimated right atrial pressure is normal (~3 mmHg). IVC size is normal. Image quality is adequate. Objective: Vitals: BP (!) 143/80 Pulse 84 Temp 98.1 F (36.7 C) (Oral) Resp 22 Wt 80.2 kg (176 lb 12.9 oz) SpO2 97% General appearance: alert and cooperative with exam HEENT: Head: Normocephalic, no lesions, without obvious abnormality. 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 Pt takes eliquis at home but has missed doses. Patient and family would like to avoid DIAMOND unless absolutely necessary as treatment would not change. Due to pt being AFib with CVA, pt is high risk for another CVA with a thrombus in [place]. Would recommend restarting AC YUE when ok with neuro. Neuro recommending to hold Eliquis 10-14 days after CVA, repeat CT done this morning, results pending, Neuro will trial Heparin to monitor patients response pending CT results Continue ASA/statin. No bleed at this time. We will follow Follows with [facility] Cardiology as outpt [employer] [facility]. [phone] * Nury Muñiz MD - 06/04/2025 12:10 PM EDT Images from the original note were not included. [facility] Office: [phone] James Garcia DO, Preet Cedeno DO, Rj Bass DO, Richard Hill DO, Jerry Nash MD, Esperanza Liang MD, Nader Yates MD, Katharina Rodrigues MD, Xavier Powell MD, Litzy Ricardo MD, Zandra Jung MD, Silviano Nicholson DO, Fernando Garcia DO, Cande Brooks MD, Blu Vazquez DO, Nan Cabrera MD, Brenna Vela MD, Louie Wright MD, Loki Olivas MD, Omar Falk MD,Marcus Angulo MD, Yomaira Todd MD, Tyler Carrillo MD, Cinda Moralez MD, Howard Campos DO,Jolene Vogel MD, Kendy Hernandez DO, Demetri Lara MD, Storm Lee MD, Silviano Rebolledo MD, Veronica Rebolledo MD, Denae Gloria MD, Clari Ugarte, [employer], Susan Chow, [employer] PR[employer] OPERATOR, Howard Quick, [facility], Ginger Andrew, [facility], Jadyn Cuello, [employer] PR[employer] OPERATOR, Sallie Desouza, [employer] OPERATOR, Eliz Field, [employer] OPERATOR, Joy Mendez, FL[employer] PRESS OPERATOR, Mandy Van, [facility], Rachana Eldridge, [employer] PR[employer] OPERATOR, Viraj Perez, [employer] PRESS OPERATOR, Eileen Tran, [facility], Ifrah Parada, [employer] PR[employer] OPERATOR, Bert Leggett, PA-C, Marry Craven, PA-C, Dayanara Evangelista, [employer] PR[employer] OPERATOR, Lanie Costa, [facility], Elodia Masters [facility], Christelle Wise, [facility], Fatemeh Roberson, [facility] IN-PATIENT SERVICE [facility] Progress Note 06/04/2025 12:10 PM Name: Moustapha Alejandra Acct: [id number] Room: 0143/0143-01 Day: 5 Admit Date: 05/30/2025 6:58 PM PCP: Hannah Gruber MD Code Status: Full Code Subjective: C/C: No chief complaint on file. Interval History Status: improved. Acute infarct of left SHEET METAL PATTERN CUTTER Plan for head CT tomorrow to determine if patient can be started on heparin drip. Patient and family at bedside would like to avoid DIAMOND if possible. Brief History: Per HPI: 80-year-old female with past medical history of CVA(history of aphasia improved after speech therapy), anxiety, asthma, depression, history of right hip fracture uses walker for ambulation, hypertension, atrial fibrillation?? On Eliquis. Presented to outside hospital due to aphasia. Lab workup at outside hospital sodium 135, potassium 3.6, chloride 100, BUN/creatinine 21/0.7, blood glucose 111, normal LFTs, troponin 1166--- 1555. CBC WBC 7.5, hemoglobin 8.9, platelet 315. CT head showed acute/subacute infarct involving the left SHEET METAL PATTERN CUTTER distribution with mild local mass effect no hemorrhagic transformation at this time. Chronic areas of remote infarct. Telestroke was consulted at outside hospital. Patient was out of the window for DKA. Patient low NIHSS score of 1 and already on anticoagulation. Cardiology consulted due to elevated troponin and recommended starting patient on heparin drip. Evaluated patient at bedside. Patient is currently alert oriented to herself and was able to tell me her date of . Unable to tell me the place. Patient denies any weakness in upper and lower extremities or sensory deficits. She woke up around 4 AM last night and noticed unable to find words for simple things and difficulty remembering names of things. Daughter mentioned that patient had a stroke before after which she developed significant aphasia and she went through speech therapy and improved significantly. All the symptoms are new. Patient was unable to tell me the name of simple things like pen, glasses or mobile phone. Patient currently denies any chest pain, shortness of breath, nausea, vomiting, abdominal pain, dysuria urgency or frequency. Patient is scheduled for Watchman procedure outpatient. Review of Systems: Constitutional: negative for chills, fevers, sweats Respiratory: negative for cough, dyspnea on exertion, shortness of breath, wheezing Cardiovascular: negative for chest pain, chest pressure/discomfort, lower extremity edema, palpitations Gastrointestinal: negative for abdominal pain, constipation, diarrhea, nausea, vomiting Neurological: negative for dizziness, headache Medications: Allergies: Allergies Allergen Reactions Demerol Hcl [Meperidine] Environmental/Seasonal Iodinated Contrast Media Current Meds: Scheduled Meds: lidocaine 1 patch TransDERmal Daily aspirin 81 mg Oral Daily sodium chloride flush 5-40 mL IntraVENous 2 times per day atorvastatin 40 mg Oral Nightly Continuous Infusions: [Held by provider] heparin (PORCINE) Infusion Stopped (05/31/25 1445) sodium chloride PRN Meds: melatonin, heparin (porcine), heparin (porcine), sodium chloride flush, sodium chloride, potassium chloride OR potassium alternative oral replacement OR potassium chloride, magnesium sulfate, ondansetron OR ondansetron, polyethylene glycol, acetaminophen OR acetaminophen Data: Past Medical History: has no past medical history on file. Social History: Family History: No family history on file. Vitals: BP (!) 175/67 Pulse 80 Temp 98.3 F (36.8 C) (Oral) Resp 19 Wt 80.2 kg (176 lb 12.9 oz) SpO2 99% Temp (24hrs), Av.9 F (36.6 C), Min:97.4 F (36.3 C), Max:98.3 F (36.8 C) No results for input(s): POCGLU in the last 72 hours. I/O (24Hr): Intake/Output Summary (Last 24 hours) at 06/04/2025 1210 Last data filed at 06/04/2025 0400 Gross per 24 hour Intake 240 ml Output 1350 ml Net -1110 ml Labs: Hematology: Recent Labs 06/02/25 0707 06/04/25 0632 WBC 9.4 7.9 RBC 3.54* 3.65* HGB 8.0* 8.3* HCT 27.5* 29.1* MCV 77.7* 79.7* MCH 22.6* 22.7* MCHC 29.1 28.5 RDW 15.8* 15.8* PLT 260 266 MPV 9.9 10.1 Chemistry: Recent Labs 06/02/25 0707 NA 137 K 4.3 CL 103 CO2 23 GLUCOSE 119* BUN 16 CREATININE 0.9 ANIONGAP 11 LABGLOM 65 CALCIUM 9.1 No results for input(s): LABALBU , LABA1C , F1FXYIX , FT4 , TSH , AST , ALT , LDH , GGT , ALKPHOS , BILITOT , BILIDIR , AMMONIA , AMYLASE , LIPASE , LACTATE , CHOL , HDL , CHOLHDLRATIO , TRIG , VLDL , HNF12XZ , PHENYTOIN , PHENYF , URICACID , POCGLU in the last 72 hours. Invalid input(s): PROT , B0ECKOX , LABGGT , LDLCHOLESTEROL ABG:No results found for: POCPH , PHART , PH , POCPCO2 , TYG7FLL , PCO2 , POCPO2 , PO2ART , PO2 , POCHCO3 , RDT0HQG , HCO3 , NBEA , PBEA , BEART , BE , THGBART , THB , PWM4PIL , HNUB8SMN , D8KINKXV , O2SAT , FIO2 No results found for: SPECIAL No results found for: CULTURE Radiology: XR CHEST PORTABLE Result Date: 06/01/2025 Mild central pulmonary vascular congestion. No consolidation or pleural effusion. CT HEAD WO CONTRAST Result Date: 06/01/2025 1. Left occipital lobe, thalamus, and cerebellar hemisphere acute infarcts unchanged. No intracranial hemorrhage identified. MRI BRAIN WO CONTRAST Addendum Date: 05/31/2025 Result Date: 05/31/2025 1. Acute infarct involving the majority of the left SHEET METAL PATTERN CUTTER territory, with smaller acute infarcts alsoseen in the anterior/inferior left cerebellar hemisphere and left thalamus. No associated hemorrhage or mass effect. 2. 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 3. Mild burden of scattered white matter FLAIR hyperintensities, likely representing chronic microangiopathic ischemic changes in this age group. Physical Examination: General appearance: alert, cooperative and no distress Mental Status: oriented to person and place Lungs: clear to auscultation bilaterally, normal effort Heart: regular rate and rhythm, no murmur Abdomen: soft, nontender, nondistended, normal bowel sounds, no masses, hepatomegaly, splenomegaly Extremities: no edema, redness, tenderness in the calves Skin: no gross lesions, rashes, induration Assessment: Hospital Problems Last Modified POA * (Principal) Stroke-like symptoms 05/30/2025 Yes NSTEMI (non-ST elevated myocardial infarction) ([facility]) 05/31/2025 Yes Hyperlipidemia 05/31/2025 Yes Hypertension 05/31/2025 Yes Depression 05/31/2025 Yes Cerebrovascular accident (CVA) ([facility]) 05/31/2025 Yes Expressive aphasia 05/31/2025 Yes ACS (acute coronary syndrome) ([facility]) 06/01/2025 Yes Cardiomyopathy ([facility]) 06/01/2025 Yes Chest pain 06/01/2025 Yes 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 Continue aspirin. Continue statin Left atrial echodensity-patient and family would like to avoid DIAMOND. Plan for head CT tomorrow to determine if patient can just be started on blood thinner earlier than 10 to 14 days. PAF-status post loop recorder. Eliquis on hold due to possible hemorrhagic transformation of stroke. Greater than 35 minutes spent on physical exam, chart review, assessment and plan. Nury Muñiz MD 06/04/2025 12:10 PM * Regan Burdick MD - 06/04/2025 8:42 AM EDT [facility] Neurology IN-PATIENT SERVICE [facility] Neurology Consult Note Date: 06/04/2025 Patient name: Moustapha Alejandra Date of admission: 05/30/2025 6:58 PM Account: [id number] Date of : 1945 PCP: Hannah Gruber MD Room: 0143/0143-01 Code Status: Full Code Chief Complaint: Aphasia History Obtained From: patient, electronic medical record History of Present Illness: Per consult note The patient is a 80 y.o. female with significant past medical history of hypertension, hyperlipidemia, depression, asthma, history of CVA, A-fib? (On Eliquis) who was referred to us from [facility]. The patient initially presented to the emergency department due to confusion and expressive aphasia. Stroke alert was called on the patient and her NIHSS was 1. Last known well was the night before the day of presentation 04/28/2025. TNK was not given as the patient was outside the window and because of history of anticoagulation. She was loaded with aspirin 325 mg. The patient denied any headaches, blurred vision, falling downs, head trauma, weakness/numbness or any other complaints. Patient was found to have a troponin level of 1166. EKG was interpreted as with no acute findings. Cardiology was consulted, the patient is to be treated as a case of ACS with heparin drip. At arrival and initial evaluation, the patient was alert, oriented to place/time. Motor/sensory functions were intact all over. NIH was 3, for mild aphasia and not answering age/month. 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 No hemorrhagic transformation at that time. Chronic areas of remote infarcts. CTA did not show any evidence of LVOs. Of note the patient's history of CVA left her with expressive aphasia. Her daughter mentioned that she improved significantly after following up with speech therapy, and this was not her baseline. 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 Patient desaturated last night to 51% and neurology was requested for evaluation due to change in neuroexam due to agitation Will repeat CT head today to rule out any hemorrhagic conversion. 06/02:- Patient seen and examined at bedside. Patient is complaining of back pain overnight and is on Mantador for the same. Patient was sleeping the morning, easily arousable. Patient CT scan of head without contrast 06/01/25 did not reveal any hemorrhagic transformation. Echocardiogram is still pending. Heparin is on hold. 06/03 :-Patient seen and examined at bedside. AO x 2. Has difficulty remembering the name of the president and month of the year. Echo revealed a large echodensity in the left atrium of the. Cardiology recommended DIAMOND. Cardiology is recommending anticoagulation YUE. 06/04: Patient was seen and examined at bedside. Vitally stable. Systolic blood pressure in the morning was 136/46. DIAMOND pending, cardiology on board due to LV thrombus. Will decide on anticoagulation,ideally should be 10 to 14 days due to right hemispheric stroke.Plan to repeat CT head tomorrow, will start heparin without bolus if stable and then transition to DOAC afterwards Past Medical History: No past medical history on file. Past Surgical History: No past surgical history on file. Medications Prior to Admission: Prior to Admission medications Medication Sig Start Date End Date Taking? Authorizing Provider aspirin 81 MG EC tablet Take 1 tablet by mouth daily 06/03/25 Yes Kendy Hernandez DO atorvastatin (LIPITOR) 40 MG tablet Take 1 tablet by mouth nightly 06/03/25 Yes Kendy Hernandez DO Allergies: Demerol hcl [meperidine], Environmental/seasonal, and Iodinated contrast media Social History: Tobacco: has no history on file for tobacco use. Alcohol: has no history on file for alcohol use. Drug Use: has no history on file for drug use. Family History: No family history on file. Review of Systems: Review of Systems Constitutional: Negative. HENT: Negative. Eyes: Positive for visual disturbance. Respiratory: Negative. Cardiovascular: Negative. Gastrointestinal: Negative. Endocrine: Negative. Musculoskeletal: Negative. Allergic/Immunologic: Negative. Neurological: Positive for speech difficulty. Negative for dizziness, tremors, seizures, syncope, facial asymmetry, weakness, light-headedness, numbness and headaches. Physical Exam: BP (!) 136/46 Pulse 78 Temp 97.4 F (36.3 C) (Temporal) Resp 13 Wt 80.2 kg (176 lb 12.9 oz) SpO2 98% Temp (24hrs), Av.9 F (36.6 C), Min:97.4 F (36.3 C), Max:98.3 F (36.8 C) No results for input(s): POCGLU in the last 72 hours. Intake/Output Summary (Last 24 hours) at 06/04/2025 0842 Last data filed at 06/04/2025 0400 Gross per 24 hour Intake 240 ml Output 1350 ml Net -1110 ml Neurological Exam GENERAL Appears comfortable and in no distress HEENT NC/ AT HEART S1 and S2 heard; palpation of pulses: radial pulse NECK Supple and no bruits heard MENTAL STATUS: Alert, oriented to place/person not time, mild to moderate aphasia, intact repetition, impaired naming CRANIAL NERVES: II - complete right homonymous hemianopsia III,IV, - PERR, EOMs full, no ptosis V - Normal facial sensation VII - Normal facial symmetry VIII - Intact hearing IX,X - Symmetrical palate XI - Symmetrical shoulder shrug XII - Midline tongue, no atrophy MOTOR FUNCTION: RUE: Significant for good strength of grade 5/5 in proximal and distal muscle groups LUE: Significant for good strength of grade 5/5 in proximal and distal muscle groups RLE: Significant for good strength of grade 5/5 in proximal and distal muscle groups LLE: Significant for good strength of grade 5/5 in proximal and distal muscle groups Normal bulk, normal tone and no involuntary movements, no tremor SENSORY FUNCTION: Normal touch, normal pinprick, normal vibration, normal proprioception CEREBELLAR FUNCTION: Intact fine motor control over upper limbs and lower limbs REFLEX FUNCTION: Symmetric in upper and lower extremities, no Babinski sign STATION and GAIT Deferred INITIAL NIH STROKE SCALE: 1a. Level of consciousness: 0 - alert; keenly responsive 1b. Level of consciousness questions: 2 - answers neither question correctly 1c. Level of consciousness questions: 0 - performs both tasks correctly 2. Best Gaze: 0 - normal 3. Visual: 2 4. Facial Palsy: 0 5a. Motor left arm: 0 - no drift, limb holds 90 (or 45) degrees for full 10 seconds 5b. Motor right arm: 0 - no drift, limb holds 90 (or 45) degrees for full 10 seconds 6a. Motor left le - no drift; leg holds 30 degree position for full 5 seconds 6b. Motor right le - no drift; leg holds 30 degree position for full 5 seconds 7. Limb Ataxia: 0 - absent 8. Sensory: 0 - normal; no sensory loss 9. Best Language: 1 - mild to moderate aphasia; some obvious loss of fluency or facility of comprehension without significant limitation on ideas expressed or form of expression. Reduction of speech and/or comprehension, however, makes conversation about provided materials difficult or impossible. For example, in conversation about provided materials, examiner can identify picture or naming card content from patient's response. 10. Dysarthria: 0 - normal 11. Extinction and Inattention: 0 - no abnormality TOTAL: 5 Investigations: Laboratory Testing: Recent Results (from the past 24 hours) CBC Collection Time: 06/04/25 6:32 AM Result Value Ref Range WBC 7.9 3.5 - 11.3 k/uL RBC 3.65 (L) 3.95 - 5.11 m/uL Hemoglobin 8.3 (L) 11.9 - 15.1 g/dL Hematocrit 29.1 (L) 36.3 - 47.1 % MCV 79.7 (L) 82.6 - 102.9 fL MCH 22.7 (L) 25.2 - 33.5 pg MCHC 28.5 28.4 - 34.8 g/dL RDW 15.8 (H) 11.8 - 14.4 % Platelets 266 138 - 453 k/uL MPV 10.1 8.1 - 13.5 fL NRBC Automated 0.0 0.0 per 100 WBC Assessment : Primary Problem Stroke-like symptoms Active Hospital Problems Diagnosis Date Noted Abnormal echocardiogram [R93.1] 06/03/2025 ACS (acute coronary syndrome) (HCC) [I24.9] 06/01/2025 Cardiomyopathy (HCC) [I42.9] 06/01/2025 Chest pain [R07.9] 06/01/2025 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 #Likely cardioembolic, given atrial fibrillation and recent interruption of anticoagulation. MRI on 05/30/2025 showed acute infarct involving the majority of the left SHEET METAL PATTERN CUTTER territory, with smalleracute infarct also seen in the anterior/inferior left cerebellar hemisphere and left thalamus as well as small transcortical infarct in left frontal focus and chronic lacunar infarct in the left cerebellar hemisphere, mild burden of scattered white matter hyper intensities Repeat CT head from 06/01/2025 did not reveal any hemorrhagic transformation. Neurocheck per protocol. Heparin is on hold due to large hemispheric infarct Patient is currently on aspirin Plan to restart Eliquis ~10-14 days post-stroke if no hemorrhagic transformation on follow-up imaging. Echocardiogram revealed left atrial echodensity. Cardiology recommended DIAMOND. Cardiology is recommending anticoagulation YUE. Loop recorder interrogation Lipid panel revealed total cholesterol 172, HDL 82, LDL 62 and HbA1c 5.5, on Lipitor 40 mg Blood pressure goal less than [address] head on 06/05/2025, start heparin without bolus if stable and afterwards plan to transition to DOAC PT/OT/SUPER[employer] Rest of management per primary Consider Stat CT scan of brain if any changes in neurological status is noted. Patient and Family Stroke Education Patient and/or family Education discussed today: embolic atrial fibrillation and hypertension Stroke Education Topics: Medication Compliance Importance of Followup Patient or family members expressed understanding on topics that were discussed and all their questions were answered. Consultations: IP CONSULT TO CARDIOLOGY IP CONSULT TO NEUROLOGY Follow-up further recommendations after discussing the case with attending The plan was discussed with the patient, patient's family and the medical staff. Patient is admitted as inpatient status because of co-morbidities listed above, severity of signs and symptoms as outlined, requirement for current medical therapies and most importantly because of direct risk to patient if care not provided in a hospital setting. Discussed with NERIS Zimmerman Copy sent to Hannah Islas MD Talha Nazir, MD Neurology Resident PGY-2 Neurology Service 06/04/2025 8:42 AM Cosigned by Neris Moralez MD at 06/04/2025 4:15 PM EDT Associated attestation - Neris Moralez MD - 06/04/2025 4:15 PM EDT Images from the original note were not included. Attending Physician Statement I have discussed the case of Moustapha Alejandra including pertinent history and exam findings with the resident physician. I reviewed medications, clinical labs, x- rays and other diagnostic tests with theresident physician. I have seen and examined the patient and the bourgeois elements of the encounter have been performed by me. I agree with the assessment, plan and orders as documented by the resident physician. Briefly, this is a 80 y.o. female with hx of HTN, HLD, depression, A-fib (on Eliquis) and prior CVAwas admitted as a transfer [facility] with confusion and expressive aphasia. Admit vitals 158/68, 81/min, 98.1 F. Patient was evaluated by stroke team; NIH stroke scale was 3 for decreased fluency of speech and orientation questions. Walsh not a candidate for IV TNK as she was outside of therapeutic window and also on anticoagulant therapy. Patient was loaded with aspirin 325 mg. On exam: Speech exam significant for expressive aphasia with perseveration, dysnomia but with good repetition. Does not blink well to threat on right side. Otherwise cranial nerve exam unremarkable; no sensorimotor deficits noted. 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 Also with chronic remote infarcts. CTA head and neck 05/30/2025 at [facility]: No evidence of LVO MRI brain 05/31/2025: Acute infarct involving majority of left SHEET METAL PATTERN CUTTER territory with a smaller acute infarcts also seen in left cerebellar hemisphere and left thalamus. Follow up CT head 06/01/2025: . Left occipital lobe, thalamus, and cerebellar hemisphere acute infarcts unchanged. No intracranial hemorrhage identified. Echo (05/31/25): Large echodensity in left atrium. EF 57%. Recommend DIAMOND. Impression and Plan: Ms. Moustapha Alejandra is a 80 y.o. female with Acute large left SHEET METAL PATTERN CUTTER territory ischemic infarct (with symptom onset 05/29/25) with additional left cerebellar and left thalamic infarcts; cerebral embolism in the setting of A-fib: At risk of hemorrhagic transformation; therefore anticoagulant, heparin was held. Follow-up CT head on 06/01 stable. NIH stroke scale is 5 with 2 month and age, 1 for homonymous hemianopsia, 2 for aphasia Thrombus in left atrium: At high risk of embolism Recommend close monitoring with NIH stroke scale every shift Will continue monitoring with NIH stroke scale every shift and with any change in neurostatus; willget stat CT head (wo) to evaluate for any new ischemic stroke. 06/05/2025 will be 7 days from symptom onset; to do CT head in am and then to consider IV heparinization. Extensive and detailed discussion done with the patient and her caregivers. Will follow with you. This note was partially created using voice recognition software and is inherently subject to errors including those of syntax and sound alike substitutions which may escape proofreading. In such instances, original meaning may be extrapolated by contextual derivation. Neris Moralez MD 06/04/2025 3:56 PM * Igor Lanie, FAMILY INTERVENTION SPECIALIST - COMMERCIAL REPORTER - 06/04/2025 7:06 AM EDT Images from the original note were not included. [employer] Progress Note Date: 06/04/2025 Patient name: Moustapha Alejandra Date of admission: 05/30/2025 6:58 PM Date of : 1945 PCP: Hannah Gruber MD Reason for Admission: Stroke-like symptoms [R29.90] Elevated troponin [R79.89] Subjective: Clinical Changes / Abnormalities:Pt seen and examined in the room. Pt resting in bed. Pt denies anyCP or sob. Labs, vitals and tele reviewed. Medications: Scheduled Meds: lidocaine 1 patch TransDERmal Daily aspirin 81 mg Oral Daily sodium chloride flush 5-40 mL IntraVENous 2 times per day atorvastatin 40 mg Oral Nightly Continuous Infusions: [Held by provider] heparin (PORCINE) Infusion Stopped (05/31/25 1445) sodium chloride CBC: Recent Labs 06/02/25 0707 06/04/25 0632 WBC 9.4 7.9 HGB 8.0* 8.3* PLT 260 266 BMP: Recent Labs 06/02/25 0707 NA 137 K 4.3 CL 103 CO2 23 BUN 16 CREATININE 0.9 GLUCOSE 119* Hepatic: No results for input(s): AST , ALT , BILITOT , ALKPHOS in the last 72 hours. Invalid input(s): ALB Troponin: No results for input(s): TROPHS in the last 72 hours. BNP: No results for input(s): BNP in the last 72 hours. Lipids: No results for input(s): CHOL , HDL in the last 72 hours. Invalid input(s): LDLCALCU INR: No results for input(s): INR in the last 72 hours. ECHO 06/02/25 Left Atrium: Left atrium size is normal. [...] decreases greater than 50% during inspiration; therefore theestimated right atrial pressure is normal (~3 mmHg). IVC size is normal. Image quality is adequate. Objective: Vitals: BP (!) 151/73 Pulse 76 Temp 98.3 F (36.8 C) (Oral) Resp 17 Wt 80.2 kg (176 lb 12.9 oz) SpO2 98% General appearance: alert and cooperative with exam HEENT: Head: Normocephalic, no lesions, without obvious abnormality. Neck: no JVD, trachea midline, no adenopathy Lungs: Clear to auscultation Heart: Regular rate and rhythm, s1/s2 auscultated, no murmurs Abdomen: soft, non-tender, bowel sounds active Extremities: no edema Neurologic: not done Assessment / Acute Cardiac Problems: NSTEMI, likely secondary to CVA/Anemia PAF S.p ILR Acute infarct of left SHEET METAL PATTERN CUTTER Patient Active Problem List: Stroke-like symptoms NSTEMI (non-ST elevated myocardial infarction) ([facility]) Hyperlipidemia Hypertension Depression Cerebrovascular accident (CVA) ([facility]) Expressive aphasia ACS (acute coronary syndrome) ([facility]) Cardiomyopathy ([facility]) Chest pain Plan of Treatment: ECHO reviewed and shows large echodensity noted in left atrium. Pt takes eliquis at home but has missed doses. Recommend DIAMOND to diagnose large thrombus which is highly suspected. Due to pt being AFibwith CVA, pt is high risk for another CVA with a thrombus in [place]. Would recommend restarting AC ASAPwhen ok with neuro. Neuro recommending to hold Eliquis 10-14 days after CVA Continue ASA/statin. No bleed at this time. Keep NPO after midnight tomorrow for DIAMOND Friday Follows with [facility] Cardiology as outpt [employer] [phone] * Marti Santos, SPT - 06/03/2025 12:45 PM EDT Physical Therapy Facility/Department: [address] [place] Physical Therapy Daily Treatment Note Patient Name: Moustapha Alejandra : 1945 Date of Service: 06/03/2025 No chief complaint on file. Past Medical History: has no past medical history on file. Past Surgical History: has no past surgical history on file. Discharge Recommendations Discharge Recommendations: Patient able to tolerate 3 hours of therapy per day PT Equipment Recommendations Equipment Needed: No Other: pt owns RW Assessment Body Structures, Functions, Activity Limitations Requiring Skilled Therapeutic Intervention: Decreased functional mobility ;Decreased strength;Decreased safe awareness;Decreased balance;Decreased posture;Decreased endurance;Decreased vision/visual deficit Assessment: Pt performed bed mobility with supervision. Pt SBA with and without RW for transfers and CGA with RW for amb. Pt amb 50ft + 50ft with standing rest break. Pt would benefit from further therapy services before retuning home in order to facilitate a further increase in strength and balance. Therapy Prognosis: Good Decision Making: Medium Complexity Requires PT Follow-Up: Yes Activity Tolerance Activity Tolerance: Patient tolerated treatment well, Treatment limited secondary to decreased cognition Safety Devices Type of Devices: Gait belt, Heels elevated for pressure relief, Patient at risk for falls, Call light within reach, Nurse notified, Left in chair AM-PAC AM-PAC Basic Mobility - Inpatient How much help is needed turning from your back to your side while in a flat bed without using bedrails?: None How much help is needed moving from lying on your back to sitting on the side of a flat bed withoutusing bedrails?: None How much help is needed moving to and from a bed to a chair?: A Little How much help is needed standing up from a chair using your arms?: A Little How much help is needed walking in hospital room?: A Little How much help is needed climbing 3-5 steps with a railing?: A Lot [facility] Inpatient Mobility Raw Score : 19 [facility] Inpatient T-Scale Score : 45.44 Mobility Inpatient CMS 0-100% Score: 41.77 Mobility Inpatient CMS G-Code Modifier : CK Restrictions/Precautions Restrictions/Precautions Activity Level: Up with Assist Required Braces or Orthoses?: No Position Activity Restriction Other Position/Activity Restrictions: SBP less than 200 Restraints Restraints Initially in Place: No Subjective General Chart Reviewed: No Patient assessed for rehabilitation services?: Yes Response To Previous Treatment: Patient with no complaints from previous session. Family/Caregiver Present: No Follows Commands: Impaired (pt confused but pleasant, easily redirected, follows commands with increased time and repetition) General General Comments: RN and pt agreeable to tx. Pt denies pain, numbness, tingling. Objective Cognition Overall Cognitive Status: Exceptions Arousal/Alertness: Appears intact Following Commands: Follows multistep commands with repetition;Follows multistep commands with increased time Attention Span: Attends with cues to redirect Safety Judgement: Decreased awareness of need for assistance;Decreased awareness of need for safety Problem Solving: Assistance required to generate solutions;Assistance required to correct errors made;Assistance required to identify errors made;Decreased awareness of errors;Assistance required to implement solutions Insights: Decreased awareness of deficits Initiation: Requires cues for some Sequencing: Requires cues for some Cognition Comment: Pt continues to exhibit word finding difficulties Mobility Bed mobility Supine to Sit: Supervision Scooting: Stand by assistance Bed Mobility Comments: HOB elevated 30 degrees. Transfers Sit to Stand: Stand by assistance Stand to Sit: Stand by assistance Comment: transfers completed with and without RW Ambulation Surface: Level tile Device: Rolling Walker Assistance: Contact guard assistance Quality of Gait: max verbal cues for keeping body inside RW for upright posture with fair return, symmetrical step through pattern, extra time necessary for turns Gait Deviations: Decreased step length;Decreased step height Distance: 50ft + 50ft with standing rest break Balance Balance Posture: Good Sitting - Static: Good Sitting - Dynamic: Good;- Standing - Static: Fair;+ Standing - Dynamic: Fair Comments: standing balance w/ unilateral UE support on RW Exercise PT Exercises A/AROM Exercises: BLE ex in bed x 10 reps: SLR, bridging Dynamic Standing Balance Exercises: lateral stepping at EOB, CGA, 5 steps in ea direction x 2 Motor Control/Coordination: pt standing with CGA an RUE fingertip touch on RW, 3 items of varying heights placed in front of pt for foot taps to work on slow and controlled movement d/t observed ataxia, BLE, ~8 minutes w/ seated rest break after ~5 minutes; pt seated EOB with supervision with teletypewriter installer sat across from pt thowing ball of socks back and forth x30 reps to work on UE ataxia, reaction nicole e, and tracking of objects, catch with BUE and throw with RUE Patient Education Patient Education Education Given To: Patient Education Provided: Role of Therapy;Plan of Care Education Method: Verbal Barriers to Learning: Cognition Education Outcome: Verbalized understanding;Continued education needed Plan Physical Therapy Plan General Plan: 6-7 times per week Current Treatment Recommendations: Strengthening, ROM, Balance training, Functional mobility training, Transfer training, Gait training, Stair training, Neuromuscular re-education, Home exercise program, Safety education & training, Patient/Caregiver education & training, Equipment evaluation, education, & procurement, Positioning, Therapeutic activities Goals Patient Goals Patient Goals : go home Short Term Goals Time Frame for Short Term Goals: 12 visits Short Term Goal 1: independent bed mobility with HOB elevated ~30 degrees Short Term Goal 2: independent transfers Short Term Goal 3: independent gait with rollator x 100' Short Term Goal 4: independent stair ambulation x 3 steps with B HRs Minutes PT Individual Minutes Time In: 1043 Time Out: 1139 Minutes: 56 Time Code Minutes Timed Code Treatment Minutes: 56 Minutes Evaluation/treatment performed by Student PT under the supervision of co-signing PT who agrees withall evaluation/treatment and documentation. Cosigned by Neil Ibanez PT at 06/03/2025 3:37 PM EDT * Kendy Hernandez, DO - 06/03/2025 11:57 AM EDT [email or web address] IN-PATIENT SERVICE [facility] Progress Note 06/03/2025 11:57 AM Name: Moustapha Alejandra Acct: [id number] Room: [address] [place] [address] Day: 4 Admit Date: 05/30/2025 6:58 PM PCP: Hannah Gruber MD Code Status: Full Code Subjective: Patient evaluated at bedside, she is alert and oriented x 1-2. Denies any chest pain or shortness of breath. No acute overnight events. Brief History: Per HPI: 80-year-old female with past medical history of CVA(history of aphasia improved after speech therapy), anxiety, asthma, depression, history of right hip fracture uses walker for ambulation, hypertension, atrial fibrillation?? On Eliquis. Presented to outside hospital due to aphasia. Lab workup at outside hospital sodium 135, potassium 3.6, chloride 100, BUN/creatinine 21/0.7, blood glucose 111, normal LFTs, troponin 1166--- 1555. CBC WBC 7.5, hemoglobin 8.9, platelet 315. CT head showed acute/subacute infarct involving the left SHEET METAL PATTERN CUTTER distribution with mild local mass effect no hemorrhagic transformation at this time. Chronic areas of remote infarct. Telestroke was consulted at outside hospital. Patient was out of the window for DKA. Patient low NIHSS score of 1 and already on anticoagulation. Cardiology consulted due to elevated troponin and recommended starting patient on heparin drip. Evaluated patient at bedside. Patient is currently alert oriented to herself and was able to tell me her date of . Unable to tell me the place. Patient denies any weakness in upper and lower extremities or sensory deficits. She woke up around 4 AM last night and noticed unable to find words for simple things and difficulty remembering names of things. Daughter mentioned that patient had a stroke before after which she developed significant aphasia and she went through speech therapy and improved significantly. All the symptoms are new. Patient was unable to tell me the name of simple things like pen, glasses or mobile phone. Patient currently denies any chest pain, shortness of breath, nausea, vomiting, abdominal pain, dysuria urgency or frequency. Patient is scheduled for Watchman procedure outpatient. Medications: Allergies: Allergies Allergen Reactions Demerol Hcl [Meperidine] Environmental/Seasonal Iodinated Contrast Media Current Meds: Scheduled Meds: lidocaine 1 patch TransDERmal Daily aspirin 81 mg Oral Daily sodium chloride flush 5-40 mL IntraVENous 2 times per day atorvastatin 40 mg Oral Nightly Continuous Infusions: [Held by provider] heparin (PORCINE) Infusion Stopped (05/31/25 1445) sodium chloride PRN Meds: heparin (porcine), heparin (porcine), sodium chloride flush, sodium chloride, potassium chloride OR potassium alternative oral replacement OR potassium chloride, magnesium sulfate, ondansetron OR ondansetron, polyethylene glycol, acetaminophen OR acetaminophen Data: Past Medical History: has no past medical history on file. Social History: Family History: No family history on file. Vitals: BP (!) 151/68 Pulse 100 Temp 98.3 F (36.8 C) (Oral) Resp 19 Wt 82 kg (180 lb 12.4 oz) SpO2 95% Temp (24hrs), Av.6 F (37 C), Min:98.2 F (36.8 C), Max:99.5 F (37.5 C) No results for input(s): POCGLU in the last 72 hours. I/O (24Hr): Intake/Output Summary (Last 24 hours) at 06/03/2025 1157 Last data filed at 06/02/2025 1318 Gross per 24 hour Intake 720 ml Output -- Net 720 ml Labs: Hematology: Recent Labs 06/02/25 0707 WBC 9.4 RBC 3.54* HGB 8.0* HCT 27.5* MCV 77.7* MCH 22.6* MCHC 29.1 RDW 15.8* PLT 260 MPV 9.9 Chemistry: Recent Labs 05/31/25 2138 06/01/25 0642 06/02/25 0707 NA -- 138 137 K -- 4.0 4.3 CL -- 104 103 CO2 -- 25 23 GLUCOSE -- 101* 119* BUN -- 14 16 CREATININE -- 0.7 0.9 ANIONGAP -- 9 11 LABGLOM -- 87 65 CALCIUM -- 9.3 9.1 TROPHS 215* -- -- Recent Labs 06/01/25 0642 LABA1C 5.5 CHOL 172 HDL 82 CHOLHDLRATIO 2.1 TRIG 139 VLDL 28 ABG:No results found for: POCPH , PHART , PH , POCPCO2 , PIR0DUQ , PCO2 , POCPO2 , PO2ART , PO2 , POCHCO3 , WJC1JHN , HCO3 , NBEA , PBEA , BEART , BE , THGBART , THB , KLR3IKC , GENT9JLU , K4YBOMIB , O2SAT , FIO2 No results found for: SPECIAL No results found for: CULTURE Radiology: MRI BRAIN WO CONTRAST Addendum Date: 05/31/2025 ADDENDUM #1 The important findings were discussed with Dr. Kendy Hernandez by Dr. Ayad Lacy at 05/31/2025 05:39 PM. 1. Result Date: 05/31/2025 1. Acute infarct involving the majority of the left SHEET METAL PATTERN CUTTER territory, with smaller acute infarcts alsoseen in the anterior/inferior left cerebellar hemisphere and left thalamus. No associated hemorrhage or mass effect. 2. 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 3. Mild burden of scattered white matter FLAIR hyperintensities, likely representing chronic microangiopathic ischemic changes in this age group. Physical Examination: Physical Exam HENT: Head: Normocephalic. Cardiovascular: Rate and Rhythm: Normal rate. Heart sounds: No murmur heard. No friction rub. No gallop. Pulmonary: Breath sounds: No wheezing, rhonchi or rales. Abdominal: Tenderness: There is no abdominal tenderness. There is no guarding or rebound. Musculoskeletal: General: No swelling. Skin: General: Skin is warm. Neurological: Mental Status: She is alert. Comments: Alert and oriented x 1-2, noted to have expressive aphasia Psychiatric: Mood and Affect: Mood normal. 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 (HCC) 06/01/2025 Yes Plan: Acute infarct of the left SHEET METAL PATTERN CUTTER Smaller acute infarcts in the anterior/inferior left cerebellar hemisphere and left thalamus Small chronic transcortical infarcts in the frontal lobes Chronic lacunar infarct in the left cerebellar hemisphere MRI brain: Acute infarct involving majority of left SHEET METAL PATTERN CUTTER with smaller acute infarcts in the left cerebellar hemisphere and left thalamus Repeat CT head shows no intracranial hemorrhage Patient was evaluated by neurology, per recommendations no anticoagulation at this time, Neurology following Continue Lipitor and aspirin Continue PT/OT NSTEMI HLD Echo: EF 57%, large echodensity noted in left atrium Cardiology following, recommend DIAMOND Continue aspirin and Lipitor IV heparin was stopped due to ischemic stroke, cardiology recommending restarting anticoagulation Discussed case with neurology, patient is high risk for bleeding, can consider restarting anticoagulation on 06/[address] is negative Acute hypoxic respiratory failure likely secondary to above Continue oxygen supplementation to keep SpO2 greater than 90% Paroxysmal A-fib S/p loop recorder placement Eliquis 5 mg twice daily at home, missed 2 doses Holding anticoagulation for now Kendy Hernandez DO 06/03/2025 11:57 AM * Latoya Felix APRN - FLOWER POT PRESS OPERATOR - 06/03/2025 9:21 AM EDT Images from the original note were not included. [employer] Progress Note Date: 06/03/2025 Patient name: Moustapha Alejandra Date of admission: 05/30/2025 6:58 PM Date of : 1945 PCP: Hannah Gruber MD Reason for Admission: Stroke-like symptoms [R29.90] Elevated troponin [R79.89] Subjective: Clinical Changes / Abnormalities:Pt seen and examined in the room. Pt up eating breakfast. Pt denies any CP or sob. Labs, vitals and tele reviewed. ECHO reviewed with Dr. Claros. Medications: Scheduled Meds: lidocaine 1 patch TransDERmal Daily aspirin 81 mg Oral Daily sodium chloride flush 5-40 mL IntraVENous 2 times per day atorvastatin 40 mg Oral Nightly Continuous Infusions: [Held by provider] heparin (PORCINE) Infusion Stopped (05/31/25 1445) sodium chloride CBC: Recent Labs 06/02/25 0707 WBC 9.4 HGB 8.0* PLT 260 BMP: Recent Labs 06/01/25 0642 06/02/25 0707 NA 138 137 K 4.0 4.3 CL 104 103 CO2 25 23 BUN 14 16 CREATININE 0.7 0.9 GLUCOSE 101* 119* Hepatic: No results for input(s): AST , ALT , BILITOT , ALKPHOS in the last 72 hours. Invalid input(s): ALB Troponin: Recent Labs 05/31/25 2138 TROPHS 215* BNP: No results for input(s): BNP in the last 72 hours. Lipids: Recent Labs 06/01/25 0642 CHOL 172 HDL 82 INR: No results for input(s): INR in the last 72 hours. ECHO 06/02/25 Left Atrium: Left atrium size is normal. [...] decreases greater than 50% during inspiration; therefore theestimated right atrial pressure is normal (~3 mmHg). IVC size is normal. Image quality is adequate. Objective: Vitals: BP (!) 142/52 Pulse 81 Temp 98.8 F (37.1 C) (Axillary) Resp 16 Wt 82 kg (180 lb 12.4 oz) SpO2 99% General appearance: alert and cooperative with exam HEENT: Head: Normocephalic, no lesions, without obvious abnormality. Neck: no JVD, trachea midline, no adenopathy Lungs: Clear to auscultation Heart: Regular rate and rhythm, s1/s2 auscultated, no murmurs Abdomen: soft, non-tender, bowel sounds active Extremities: no edema Neurologic: not done Assessment / Acute Cardiac Problems: NSTEMI, likely secondary to CVA/Anemia PAF S.p ILR Acute infarct of left SHEET METAL PATTERN CUTTER Patient Active Problem List: Stroke-like symptoms NSTEMI (non-ST elevated myocardial infarction) ([facility]) Hyperlipidemia Hypertension Depression Cerebrovascular accident (CVA) (HCC) Expressive aphasia ACS (acute coronary syndrome) ([facility]) Cardiomyopathy (HCC) Chest pain Plan of Treatment: ECHO reviewed and shows large echodensity noted in left atrium. Pt takes eliquis at home but has missed doses. Recommend DIAMOND to diagnose large thrombus which is highly suspected. Unfortunately, pt isnot NPO. Due to pt being AFib with CVA, pt is high risk for another CVA with a thrombus in [place]. Would recommend restarting AC YUE when ok with neuro. Neuro recommending to hold Eliquis 10-14 days after CVA Continue ASA/statin. No bleed at this time. Follows with [facility] Cardiology as outpt [employer] [phone] * Ashok Manzo MD - 06/03/2025 8:14 AM EDT [facility] Neurology IN-PATIENT SERVICE [facility] Neurology Consult Note Date: 06/03/2025 Patient name: Moustapha Alejandra Date of admission: 05/30/2025 6:58 PM Account: [id number] Date of : 1945 PCP: Hannah Gruber MD Room: 0143/0143-01 Code Status: Full Code Chief Complaint: Aphasia History Obtained From: patient, electronic medical record History of Present Illness: Per consult note The patient is a 80 y.o. female with significant past medical history of hypertension, hyperlipidemia, depression, asthma, history of CVA, A-fib? (On Eliquis) who was referred to us from [facility]. The patient initially presented to the emergency department due to confusion and expressive aphasia. Stroke alert was called on the patient and her NIHSS was 1. Last known well was the night before the day of presentation 04/28/2025. TNK was not given as the patient was outside the window and because of history of anticoagulation. She was loaded with aspirin 325 mg. The patient denied any headaches, blurred vision, falling downs, head trauma, weakness/numbness or any other complaints. Patient was found to have a troponin level of 1166. EKG was interpreted as with no acute findings. Cardiology was consulted, the patient is to be treated as a case of ACS with heparin drip. At arrival and initial evaluation, the patient was alert, oriented to place/time. Motor/sensory functions were intact all over. NIH was 3, for mild aphasia and not answering age/month. 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 No hemorrhagic transformation at that time. Chronic areas of remote infarcts. CTA did not show any evidence of LVOs. Of note the patient's history of CVA left her with expressive aphasia. Her daughter mentioned that she improved significantly after following up with speech therapy, and this was not her baseline. 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 Patient desaturated last night to 51% and neurology was requested for evaluation due to change in neuroexam due to agitation Will repeat CT head today to rule out any hemorrhagic conversion. 06/02:- Patient seen and examined at bedside. Patient is complaining of back pain overnight and is on Mantador for the same. Patient was sleeping the morning, easily arousable. Patient CT scan of head without contrast 06/01/25 did not reveal any hemorrhagic transformation. Echocardiogram is still pending. Heparin is on hold. 06/03 :-Patient seen and examined at bedside. AO x 2. Has difficulty remembering the name of the president and month of the year. Echo revealed a large echodensity in the left atrium of the. Cardiology recommended DIAMOND. Cardiology is recommending anticoagulation YUE. Past Medical History: No past medical history on file. Past Surgical History: No past surgical history on file. Medications Prior to Admission: Prior to Admission medications Not on File Allergies: Demerol hcl [meperidine], Environmental/seasonal, and Iodinated contrast media Social History: Tobacco: has no history on file for tobacco use. Alcohol: has no history on file for alcohol use. Drug Use: has no history on file for drug use. Family History: No family history on file. Review of Systems: Review of Systems Constitutional: Negative. HENT: Negative. Eyes: Positive for visual disturbance. Respiratory: Negative. Cardiovascular: Negative. Gastrointestinal: Negative. Endocrine: Negative. Musculoskeletal: Negative. Allergic/Immunologic: Negative. Neurological: Positive for speech difficulty. Negative for dizziness, tremors, seizures, syncope, facial asymmetry, weakness, light-headedness, numbness and headaches. Physical Exam: BP (!) 142/52 Pulse 81 Temp 98.8 F (37.1 C) (Axillary) Resp 16 Wt 82 kg (180 lb 12.4 oz) SpO2 99% Temp (24hrs), Av.7 F (37.1 C), Min:98.2 F (36.8 C), Max:99.5 F (37.5 C) No results for input(s): POCGLU in the last 72 hours. Intake/Output Summary (Last 24 hours) at 06/03/2025 0814 Last data filed at 06/02/2025 1318 Gross per 24 hour Intake 1200 ml Output -- Net 1200 ml Neurological Exam GENERAL Appears comfortable and in no distress HEENT NC/ AT HEART S1 and S2 heard; palpation of pulses: radial pulse NECK Supple and no bruits heard MENTAL STATUS: Alert, oriented to place/person not time, mild to moderate aphasia, intact repetition, impaired naming CRANIAL NERVES: II - complete right homonymous hemianopsia III,IV, - PERR, EOMs full, no ptosis V - Normal facial sensation VII - Normal facial symmetry VIII - Intact hearing IX,X - Symmetrical palate XI - Symmetrical shoulder shrug XII - Midline tongue, no atrophy MOTOR FUNCTION: RUE: Significant for good strength of grade 5/5 in proximal and distal muscle groups LUE: Significant for good strength of grade 5/5 in proximal and distal muscle groups RLE: Significant for good strength of grade 5/5 in proximal and distal muscle groups LLE: Significant for good strength of grade 5/5 in proximal and distal muscle groups Normal bulk, normal tone and no involuntary movements, no tremor SENSORY FUNCTION: Normal touch, normal pinprick, normal vibration, normal proprioception CEREBELLAR FUNCTION: Intact fine motor control over upper limbs and lower limbs REFLEX FUNCTION: Symmetric in upper and lower extremities, no Babinski sign STATION and GAIT Deferred INITIAL NIH STROKE SCALE: 1a. Level of consciousness: 0 - alert; keenly responsive 1b. Level of consciousness questions: 2 - answers neither question correctly 1c. Level of consciousness questions: 0 - performs both tasks correctly 2. Best Gaze: 0 - normal 3. Visual: 2 4. Facial Palsy: 1 5a. Motor left arm: 0 - no drift, limb holds 90 (or 45) degrees for full 10 seconds 5b. Motor right arm: 0 - no drift, limb holds 90 (or 45) degrees for full 10 seconds 6a. Motor left le - no drift; leg holds 30 degree position for full 5 seconds 6b. Motor right le - no drift; leg holds 30 degree position for full 5 seconds 7. Limb Ataxia: 0 - absent 8. Sensory: 0 - normal; no sensory loss 9. Best Language: 1 - mild to moderate aphasia; some obvious loss of fluency or facility of comprehension without significant limitation on ideas expressed or form of expression. Reduction of speech and/or comprehension, however, makes conversation about provided materials difficult or impossible. For example, in conversation about provided materials, examiner can identify picture or naming card content from patient's response. 10. Dysarthria: 0 - normal 11. Extinction and Inattention: 0 - no abnormality TOTAL: 6 Investigations: Laboratory Testing: Recent Results (from the past 24 hours) APTT Collection Time: 06/02/25 1:13 PM Result Value Ref Range APTT 28.0 23.0 - 36.5 sec Echo (TTE) complete (PRN contrast/bubble/strain/3D) Collection Time: 06/02/25 1:25 PM Result Value Ref Range LA Minor Weston 4.8 cm LA Major Weston 5.2 cm LA Area 2C 13.9 cm2 LA Area 4C 10.3 cm2 LA Volume MOD A2C 32 22 - 52 mL LA Volume MOD A4C 16 (A) 22 - 52 mL LA Volume BP 24 22 - 52 mL LA Diameter 2.9 cm LV EDV A4C 50 mL LV EDV 3D 98 mL LV ESV A4C 14 mL LV ESV 3D 42 mL EF 3D 57 % LV Ejection Fraction A4C 71 % LVOT SV 40.2 ml LV Mass 3D 125.0 g IVSd 0.9 0.6 - 0.9 cm LVIDd 3.7 (A) 3.9 - 5.3 cm LVIDs 2.3 cm LVOT Diameter 1.6 cm LVOT Mean Gradient 3 mmHg LVOT VTI 20.0 cm LVOT Peak Velocity 1.2 m/s LVOT Peak Gradient 6 mmHg LVPWd 1.0 (A) 0.6 - 0.9 cm LV E' Lateral Velocity 8.39 cm/s LV E' Septal Velocity 5.78 cm/s Global longitudinal strain -14.2 % Global longitudinal strain -11.6 % Global longitudinal strain -15.9 % Global longitudinal strain -13.9 % LVOT Area 2.0 cm2 RA Area 4C 12.4 cm2 RA Volume 31 ml AV Mean Velocity 1.0 m/s AV Mean Gradient 5 mmHg AV VTI 25.5 cm AV Peak Velocity 1.6 m/s AV Peak Gradient 10 mmHg AV Area by VTI 1.6 cm2 AV Area by Peak Velocity 1.6 cm2 Aortic Root 2.9 cm Ascending Aorta 3.8 cm IVC Proxmal 0.9 cm MV E Wave Deceleration Time 172.0 ms MV A Velocity 1.25 m/s MV E Velocity 0.90 m/s PV Max Velocity 1.4 m/s PV Peak Gradient 8 mmHg Pulm Vein A Velocity 0.4 m/s RV Basal Dimension 2.8 cm RV Free Wall Peak S' 16.8 cm/s TAPSE 2.3 >=1.7 cm TR Max Velocity 2.42 m/s TR Peak Gradient 23 mmHg Fractional Shortening 2D 38 28 - 44 % LV RWT Ratio 0.54 LV Mass 2D 104.6 67 - 162 g MV E/A 0.72 E/E' Ratio (Averaged) 13.15 E/E' Lateral 10.73 E/E' Septal 15.57 LA/AO Root Ratio 1.00 AV Velocity Ratio 0.75 LVOT:AV VTI Index 0.78 Est. 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 Acute ischemic infarct involving majority of the left SHEET METAL PATTERN CUTTER territory, with additional small acute punctate infarcts in the left cerebellar hemisphere and left thalamus. Likely cardioembolic, given atrial fibrillation and recent interruption of anticoagulation. Repeat CT head from 06/01/2025 did not reveal any hemorrhagic transformation. Neurocheck per protocol. Heparin is on hold No indication from neurostandpoint for aspirin Plan to restart Eliquis ~10-14 days post-stroke if no hemorrhagic transformation on follow-up imaging. Echocardiogram revealed left atrial echodensity. Cardiology recommended DIAMOND. Cardiology is recommending anticoagulation YUE. Loop recorder interrogation Lipid panel revealed total cholesterol 172, HDL 82, LDL 62 and HbA1c 5.5 Blood pressure goal less than [address] to have outpatient CT scan after 1 week. Continue high intensity statin PT/OT/[employer] Rest of management per primary Consider Stat CT scan of brain if any changes in neurological status is noted. Patient and Family Stroke Education Patient and/or family Education discussed today: embolic atrial fibrillation and hypertension Stroke Education Topics: Medication Compliance Importance of Followup Patient or family members expressed understanding on topics that were discussed and all their questions were answered. Consultations: IP CONSULT TO CARDIOLOGY IP CONSULT TO NEUROLOGY Follow-up further recommendations after discussing the case with attending The plan was discussed with the patient, patient's family and the medical staff. Patient is admitted as inpatient status because of co-morbidities listed above, severity of signs and symptoms as outlined, requirement for current medical therapies and most importantly because of direct risk to patient if care not provided in a hospital setting. Discussed with NERIS Zimmerman Copy sent to Hannah Islas MD Chintan Jatinbhai Desai, MD Internal Medicine Resident PGY-2 Neurology Service 06/03/2025 8:14 AM Cosigned by Neris Moralez MD at 06/03/2025 7:21 PM EDT Associated attestation - Neris Moralez MD - 06/03/2025 7:21 PM EDT Images from the original note were not included. Attending Physician Statement I have discussed the case of Moustapha Alejandra including pertinent history and exam findings with the resident physician. I reviewed medications, clinical labs, x- rays and other diagnostic tests with theresident physician. I have seen and examined the patient and the bourgeois elements of the encounter have been performed by me. I agree with the assessment, plan and orders as documented by the resident physician. Briefly, this is a 80 y.o. female with hx of HTN, HLD, depression, A-fib (on Eliquis) and prior CVAwas admitted as a transfer from [facility] on 05/30/2025 with confusion and expressive aphasia. Admit vitals 158/68, 81/min, 98.1 F. Patient was evaluated by stroke team; NIH stroke scale was 3 for decreased fluency of speech and orientation questions. Walsh not a candidate for IV TNK as she was outside of therapeutic window and also on anticoagulant therapy. Patient was loaded with aspirin 325 mg. On exam: Speech exam significant for expressive aphasia with perseveration, dysnomia but with good repetition. Does not blink well to threat on right side. Otherwise cranial nerve exam unremarkable; no sensorimotor deficits noted. 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 Also with chronic remote infarcts. CTA head and neck 05/30/2025 at [facility]: No evidence of LVO MRI brain 05/31/2025: Acute infarct involving majority of left SHEET METAL PATTERN CUTTER territory with a smaller acute infarcts also seen in left cerebellar hemisphere and left thalamus. Follow up CT head 06/01/2025: . Left occipital lobe, thalamus, and cerebellar hemisphere acute infarcts unchanged. No intracranial hemorrhage identified. Echo (05/31/25): Large echodensity in left atrium. EF 57%. Recommend DIAMOND. Impression and Plan: Ms. Moustapha Alejandra is a 80 y.o. female with Acute large left SHEET METAL PATTERN CUTTER territory ischemic infarct (with symptom onset 05/29/25) with additional left cerebellar and left thalamic infarcts; cerebral embolism in the setting of A-fib: At risk of hemorrhagic transformation; therefore anticoagulant, heparin was held. Follow-up CT head on 06/01 stable. Thrombus in left atrium: At high risk of embolism Recommend close monitoring with NIH stroke scale every shift Will continue monitoring with NIH stroke scale every shift and with any change in neurostatus; willget stat CT head (wo) to evaluate for any new ischemic stroke. 06/05/2025 will be 7 days from symptom onset; to do CT head on that morning and then to consider IV heparinization. Extensive and detailed discussion done with the patient's daughter and patient's son at bedside andthey verbalized understanding those instructions. Will follow with you. Spent 45 minutes and greater than 50% of the time spent reviewing images, labs and other clinical notes from different sources, obtaining history and examining the patient. Discussing results and counseling and coordinating care with other healthcare providers. This note was partially created using[employer] recognition software and is inherently subject to errors including those of syntax and soundalike substitutions which may escape proofreading. In such instances, original meaning may be extrapolated by contextual derivation. Neris Moralez MD 06/03/2025 7:02 PM * Jailene Alves OTA - 06/02/2025 2:37 PM EDT Occupational Therapy Occupational Therapy Daily Treatment Note Facility/Department: [address] [place] Patient Name: Moustapha Alejandra : 1945 Date of Service: 06/02/2025 No chief complaint on file. Past Medical History: has no past medical history on file. Past Surgical History: has no past surgical history on file. Discharge Recommendations Discharge Recommendations: Patient would benefit from continued therapy after discharge Assessment Performance deficits / Impairments: Decreased ADL status;Decreased functional mobility ;Decreased endurance;Decreased balance;Decreased high-level IADLs;Decreased cognition;Decreased safe awareness Assessment: Pt limited by above deficits impacting ADL completion, ADL transfers and safe functional mobility to maximize pts potential and quality of life, continue with skilled OT during acute hospital stay and post discharge to decrease caregiver burden and enable pt to return home with spouse at maximum level of function. Prognosis: Good Activity Tolerance Activity Tolerance: Patient limited by fatigue Safety Devices Type of Devices: Gait belt, Left in bed, Heels elevated for pressure relief, Patient at risk for falls, Call light within reach, Bed alarm in place AM-PAC AM-PAC Daily Activity - Inpatient How much help is needed for putting on and taking off regular lower body clothing?: A Lot How much help is needed for bathing (which includes washing, rinsing, drying)?: A Lot How much help is needed for toileting (which includes using toilet, bedpan, or urinal)?: A Lot How much help is needed for putting on and taking off regular upper body clothing?: A Little How much help is needed for taking care of personal grooming?: A Little How much help for eating meals?: A Little AM-PAC Inpatient Daily Activity Raw Score: 15 AM-PAC Inpatient ADL T-Scale Score : 34.69 ADL Inpatient CMS 0-100% Score: 56.46 ADL Inpatient CMS G-Code Modifier : CK Restrictions/Precautions Restrictions/Precautions Restrictions/Precautions: Fall Risk Activity Level: Up with Assist Required Braces or Orthoses?: No Position Activity Restriction Other Position/Activity Restrictions: SBP less than 200 Restraints Restraints Initially in Place: No Subjective General Chart Reviewed: Yes Patient assessed for rehabilitation services?: Yes Response to previous treatment: Patient with no complaints from previous session Family / Caregiver Present: Yes (son and daughter) Diagnosis: Aphasia, CVA symptoms, L SHEET METAL PATTERN CUTTER infarcts General Comment Comments: RN ok'd pt for tx OT on this date. Pt agreeable, pleasent and cooperative to participate. Pain Pre-Pain: 0 Post-Pain: 0 Objective Orientation Overall Orientation Status: Impaired Orientation Level: Oriented to person;Oriented to situation;Disoriented to time;Oriented to place Cognition Overall Cognitive Status: Exceptions Arousal/Alertness: Appears intact Following Commands: Follows multistep commands with repetition;Follows multistep commands with increased time Attention Span: Attends with cues to redirect Memory: Impaired Safety Judgement: Decreased awareness of need for assistance;Decreased awareness of need for safety Problem Solving: Assistance required to generate solutions;Assistance required to correct errors made;Assistance required to identify errors made;Decreased awareness of errors;Assistance required to implement solutions Insights: Decreased awareness of deficits Initiation: Requires cues for some Sequencing: Requires cues for some Cognition Comment: Pt continues to exhibit word finding difficulties Activities of Daily Living Grooming: Contact guard assistance;Increased time to complete Grooming Skilled Clinical Factors: Pt demo's oral hygiene with CGA while standing at sink to complete. Pt exhibits ability to apply toothpaste to toothbrush to brush teeth and partials and reapply partitial with CGA to support pts right elbow when placing partials. UE Bathing: Stand by assistance;Increased time to complete;Verbal cueing UE Bathing Skilled Clinical Factors: Pt ricko's ability to complete UB bathing with SBA while seatedat sink on shower chair with back with verbal cues for task step direction. Pt demo's ability to wring out washcloth and wash UB. Pt also completed hair combing while sitting at sink to complete. LE Bathing: Contact guard assistance;Increased time to complete;Verbal cueing LE Bathing Skilled Clinical Factors: Pt ricko's LB bathing while standing at sink with CGA to wash charissa area with verbal cues for task step direction. UE Dressing: Minimal assistance UE Dressing Skilled Clinical Factors: Pt ricko's doff/don of gown with Oral while sitting at sink . Pt ricko's ability to dethread/thread arms through sleeves with Oral and don to shoulders with Oral. LE Dressing: Maximum assistance;Setup LE Dressing Skilled Clinical Factors: Pt requires maxA for doffing and donning of adult brief whilestanding at sink. Balance Balance Sitting: Without support (Pt ricko's sitting unsupported on EOB and on shower chair with back at sink to complete ADLs with SBA, tolerating ~40min) Standing: With support (Pt ricko's standing with RW and CGA during transfers, functional mobility and at sink to complete oral hygiene, tolerating ~13min total.) Transfers/Mobility Bed mobility Supine to Sit: Minimal assistance Sit to Supine: Partial/Moderate assistance Scooting: Contact guard assistance Bed Mobility Comments: HOB elevated 50degrees. Pt demo's supine to sitting EOB with Oral and modA for sit to supine to lift legs up on to bed. Pt ricko's scooting forward and retro at EOB with CGA to hip hike each hip forward/back. Functional Mobility: Contact guard assistance;Increased time to complete;Setup Functional Mobility Skilled Clinical Factors: Pt brien's functional mobility within room and bathroom with RW and CGA with verbal and visual cues for proper alignment of walker during functional mobility. Patient Education Patient Education Education Given To: Patient Education Provided: Role of Therapy;Transfer Training;Energy Conservation;Equipment;ADL Adaptive Strategies;Mobility Training Education Provided Comments: Role of OT, functional transfers and mobility with RW and safety, ADL completion Education Method: Demonstration;Verbal Barriers to Learning: Cognition Education Outcome: Demonstrated understanding;Verbalized understanding;Continued education needed Goals Short Term Goals Time Frame for Short Term Goals: Pt will by d/c Short Term Goal 1: demo good safety awareness during func mob around room using LRAD PRN at SUP Short Term Goal 2: demo ADL UB bathing/dressing activity at mod I Short Term Goal 3: demo ADL LB bathing/dressing activity at SBA Short Term Goal 4: demo all bed mobility, including rolling, using bedrails PRN at mod I Short Term Goal 5: demo bending/reaching high/low func activity for 8 min+, while standing, using LRAD PRN and mod I Plan Occupational Therapy Plan Times Per Week: 4-5x Current Treatment Recommendations: Balance training, Functional mobility training, Endurance training, Pain management, Safety education & training, Patient/Caregiver education & training, Equipment evaluation, education, & procurement, Self-Care / ADL, Home management training Minutes OT Individual Minutes Time In: 1311 Time Out: 1415 Minutes: 64 Time Code Minutes Timed Code Treatment Minutes: 53 Minutes Cosigned by Evangelista Mccloud OT at 06/02/2025 3:39 PM EDT * Kendy Hernandez, - 06/02/2025 1:49 PM EDT [email or web address] IN-PATIENT SERVICE [facility] Progress Note 06/02/2025 1:49 PM Name: Moustapha Alejandra Acct: [id number] Room: 0143/0143-01 IP Day: 3 Admit Date: 05/30/2025 6:58 PM PCP: Hannah Gruber MD Code Status: Full Code Subjective: Patient evaluated at bedside, she is alert and oriented x 1-2. States that she has not been able toget the rest that she wants overnight because she keeps waking up. Denies any chest pain or shortness of breath. Brief History: Per HPI: 80-year-old female with past medical history of CVA(history of aphasia improved after speech therapy), anxiety, asthma, depression, history of right hip fracture uses walker for ambulation, hypertension, atrial fibrillation?? On Eliquis. Presented to outside hospital due to aphasia. Lab workup at outside hospital sodium 135, potassium 3.6, chloride 100, BUN/creatinine 21/0.7, blood glucose 111, normal LFTs, troponin 1166--- 1555. CBC WBC 7.5, hemoglobin 8.9, platelet 315. CT head showed acute/subacute infarct involving the left SHEET METAL PATTERN CUTTER distribution with mild local mass effect no hemorrhagic transformation at this time. Chronic areas of remote infarct. Telestroke was consulted at outside hospital. Patient was out of the window for DKA. Patient low NIHSS score of 1 and already on anticoagulation. Cardiology consulted due to elevated troponin and recommended starting patient on heparin drip. Evaluated patient at bedside. Patient is currently alert oriented to herself and was able to tell me her date of . Unable to tell me the place. Patient denies any weakness in upper and lower extremities or sensory deficits. She woke up around 4 AM last night and noticed unable to find words for simple things and difficulty remembering names of things. Daughter mentioned that patient had a stroke before after which she developed significant aphasia and she went through speech therapy and improved significantly. All the symptoms are new. Patient was unable to tell me the name of simple things like pen, glasses or mobile phone. Patient currently denies any chest pain, shortness of breath, nausea, vomiting, abdominal pain, dysuria urgency or frequency. Patient is scheduled for Watchman procedure outpatient. Medications: Allergies: Allergies Allergen Reactions Demerol Hcl [Meperidine] Environmental/Seasonal Iodinated Contrast Media Current Meds: Scheduled Meds: lidocaine 1 patch TransDERmal Daily aspirin 81 mg Oral Daily sodium chloride flush 5-40 mL IntraVENous 2 times per day atorvastatin 40 mg Oral Nightly Continuous Infusions: [Held by provider] heparin (PORCINE) Infusion Stopped (05/31/25 1445) sodium chloride PRN Meds: heparin (porcine), heparin (porcine), sodium chloride flush, sodium chloride, potassium chloride OR potassium alternative oral replacement OR potassium chloride, magnesium sulfate, ondansetron OR ondansetron, polyethylene glycol, acetaminophen OR acetaminophen Data: Past Medical History: has no past medical history on file. Social History: Family History: No family history on file. Vitals: BP 131/60 Pulse 66 Temp 98.3 F (36.8 C) (Axillary) Resp 16 Wt 82 kg (180 lb 12.4 oz) [id number]% Temp (24hrs), Av.5 F (36.9 C), Min:98.3 F (36.8 C), Max:98.8 F (37.1 C) No results for input(s): POCGLU in the last 72 hours. I/O (24Hr): Intake/Output Summary (Last 24 hours) at 06/02/2025 1349 Last data filed at 06/02/2025 0946 Gross per 24 hour Intake 730 ml Output 1250 ml Net -520 ml Labs: Hematology: Recent Labs 05/31/251105/31/2544106/02/25 0707 WBC 8.1 7.7 9.4 RBC 3.57* 3.74* 3.54* HGB 8.1* 8.6* 8.0* HCT 27.8* 29.3* 27.5* MCV 77.9* 78.3* 77.7* MCH 22.7* 23.0* 22.6* MCHC 29.1 29.4 29.1 RDW 15.8* 15.9* 15.8* PLT 275 267 260 MPV 10.1 9.7 9.9 INR 1.1 -- -- Chemistry: Recent Labs 05/31/2532605/31/2544105/31/25 2138 06/01/25 0642 06/02/25 0707 NA -- 138 -- 138 137 K -- 3.5* -- 4.0 4.3 CL -- 103 -- 104 103 CO2 -- - 25 23 GLUCOSE -- 101* -- 101* 119* BUN -- 12 -- 14 16 CREATININE -- 0.7 -- 0.7 0.9 MG -- 1.9 -- -- -- ANIONGAP -- 10 -- 9 11 LABGLOM -- 87 -- 87 65 CALCIUM -- 9.3 -- 9.3 9.1 TROPHS 222* 236* 215* -- -- Recent Labs 05/31/251106/01/25 0642 LABA1C -- 5.5 AST 25 -- ALT 9* -- ALKPHOS 80 -- BILITOT 0.2 -- CHOL -- 172 HDL -- 82 CHOLHDLRATIO -- 2.1 TRIG -- 139 VLDL -- 28 ABG:No results found for: POCPH , PHART , PH , POCPCO2 , KZS9FNK , PCO2 , POCPO2 , PO2ART , PO2 , POCHCO3 , ERR9RBQ , HCO3 , NBEA , PBEA , BEART , BE , THGBART , THB , VFL4YPK , CKHO2IQT , G2MQMQDR , O2SAT , FIO2 No results found for: SPECIAL No results found for: CULTURE Radiology: MRI BRAIN WO CONTRAST Addendum Date: 05/31/2025 ADDENDUM #1 The important findings were discussed with Dr. Kendy Hernandez by Dr. Ayad Lacy at 05/31/2025 05:39 PM. 1. Result Date: 05/31/2025 1. Acute infarct involving the majority of the left SHEET METAL PATTERN CUTTER territory, with smaller acute infarcts alsoseen in the anterior/inferior left cerebellar hemisphere and left thalamus. No associated hemorrhage or mass effect. 2. 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 3. Mild burden of scattered white matter FLAIR hyperintensities, likely representing chronic microangiopathic ischemic changes in this age group. Physical Examination: Physical Exam HENT: Head: Normocephalic. Cardiovascular: Rate and Rhythm: Normal rate. Heart sounds: No murmur heard. No friction rub. No gallop. Pulmonary: Breath sounds: No wheezing, rhonchi or rales. Abdominal: Tenderness: There is no abdominal tenderness. There is no guarding or rebound. Musculoskeletal: General: No swelling. Skin: General: Skin is warm. Neurological: Mental Status: She is alert. Comments: Alert and oriented x 1-2, noted to have expressive aphasia Psychiatric: Mood and Affect: Mood normal. 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 (HCC) 06/01/2025 Yes Plan: Acute infarct of the left SHEET METAL PATTERN CUTTER Smaller acute infarcts in the anterior/inferior left cerebellar hemisphere and left thalamus Small chronic transcortical infarcts in the frontal lobes Chronic lacunar infarct in the left cerebellar hemisphere IV heparin stopped yesterday Continue Lipitor and aspirin CT head shows no intracranial hemorrhage PT/OT Echo pending Neurology following, appreciate recommendations, recommend restarting Eliquis in 10 to 14 days poststroke NSTEMI HLD Echo pending IV heparin stopped yesterday Continue aspirin and Lipitor Cardiology following, appreciate recommendations Acute hypoxic respiratory failure likely secondary to above Continue oxygen supplementation to keep SpO2 greater than 90% Paroxysmal A-fib S/p loop recorder placement Eliquis 5 mg twice daily at home, missed 2 doses Hold Eliquis for 10 to 14 days poststroke per neurology recommendations Kendy Hernandez DO 06/02/2025 1:49 PM * Marti Santos, SPT - 06/02/2025 12:22 PM EDT Physical Therapy Facility/Department: [address] [place] Physical Therapy Daily Treatment Note Patient Name: Moustapha Alejandra : 1945 Date of Service: 06/02/2025 No chief complaint on file. Past Medical History: has no past medical history on file. Past Surgical History: has no past surgical history on file. Discharge Recommendations Discharge Recommendations: Patient able to tolerate 3 hours of therapy per day PT Equipment Recommendations Equipment Needed: No Assessment Body Structures, Functions, Activity Limitations Requiring Skilled Therapeutic Intervention: Decreased functional mobility ;Decreased strength;Decreased safe awareness;Decreased balance;Decreased posture;Decreased endurance;Decreased vision/visual deficit Assessment: Pt required Oral for bed mobility. Pt SBA with RW for transfers and Oral with RW for amb. Pt amb 40ft x 3 wiith breaks in between d/t fatigue. Pt is currently unsafe to return to prior living arrangements and would benefit from further therapy services at this time. Therapy Prognosis: Good Decision Making: Medium Complexity Requires PT Follow-Up: Yes Activity Tolerance Activity Tolerance: Patient limited by fatigue Safety Devices Type of Devices: Gait belt, Left in bed, Heels elevated for pressure relief, Patient at risk for falls, Call light within reach [facility] Basic Mobility - Inpatient How much help is needed turning from your back to your side while in a flat bed without using bedrails?: A Little How much help is needed moving from lying on your back to sitting on the side of a flat bed withoutusing bedrails?: A Little How much help is needed moving to and from a bed to a chair?: A Little How much help is needed standing up from a chair using your arms?: A Little How much help is needed walking in hospital room?: A Little How much help is needed climbing 3-5 steps with a railing?: A Lot [facility] Inpatient Mobility Raw Score : 17 [facility] Inpatient T-Scale Score : 42.13 Mobility Inpatient CMS 0-100% Score: 50.57 Mobility Inpatient CMS G-Code Modifier : CK Restrictions/Precautions Restrictions/Precautions Activity Level: Up with Assist Required Braces or Orthoses?: No Position Activity Restriction Other Position/Activity Restrictions: SBP less than 200 Restraints Restraints Initially in Place: No Subjective General Chart Reviewed: No Patient assessed for rehabilitation services?: Yes Response To Previous Treatment: Patient with no complaints from previous session. Family/Caregiver Present: Yes (son) Follows Commands: Impaired (pt lethargic and wanting to get back in bed all session, max verbal cues needed to redirect pt) General General Comments: RN and pt agreeable to tx. Pt denies pain, numbness, tingling. Objective Cognition Overall Cognitive Status: Exceptions Arousal/Alertness: Appears intact Following Commands: Follows multistep commands with repetition;Follows multistep commands with increased time Attention Span: Attends with cues to redirect Safety Judgement: Decreased awareness of need for assistance;Decreased awareness of need for safety Problem Solving: Assistance required to generate solutions;Assistance required to correct errors made;Assistance required to identify errors made;Decreased awareness of errors;Assistance required to implement solutions Insights: Decreased awareness of deficits Initiation: Requires cues for some Sequencing: Requires cues for some Mobility Bed mobility Supine to Sit: Minimal assistance (hand held Oral for trunk progression) Sit to Supine: Minimal assistance (Oral for BLE progression) Scooting: Contact guard assistance Bed Mobility Comments: HOB elevated 30 degrees. Pt required extra time for bed mobility. Transfers Sit to Stand: Stand by assistance Stand to Sit: Stand by assistance Comment: RW used with transfers Ambulation Surface: Level tile Device: Rolling Walker Assistance: Minimal assistance Quality of Gait: significantly flexed posture, deviated path with RW physical assistance to redirect, max verbal cues for keeping body inside RW for upright posture with fair return, step through pattern Gait Deviations: Decreased arm swing;Decreased head and trunk rotation;Deviated path;Slow Shi Distance: 40ft, standing rest break RW CGA 1 minute, 40ft, seated rest break 1 minute, 40ft Comments: pt reported breaks needed d/t fatigue Balance Balance Posture: Fair Sitting - Static: Good Sitting - Dynamic: Good;- Standing - Static: Fair;+ Standing - Dynamic: Fair Comments: standing balance w/ RW Exercise PT Exercises A/AROM Exercises: BLE ex in bed x 10 reps: heel slides, SAQs, ankle pumps, bridges; BLE ex seated EOB x 20 reps: LAQs, seated marches Static Standing Balance Exercises: standing marches x20 in RW, CGA Dynamic Standing Balance Exercises: lateral stepping at EOB, CGA, 5 steps in ea direction x 2 Patient Education Patient Education Education Given To: Patient;Family Education Provided: Role of Therapy;Plan of Care Education Method: Verbal Barriers to Learning: Cognition Education Outcome: Verbalized understanding;Continued education needed Plan Physical Therapy Plan General Plan: 6-7 times per week Current Treatment Recommendations: Strengthening, ROM, Balance training, Functional mobility training, Transfer training, Gait training, Stair training, Neuromuscular re-education, Home exercise program, Safety education & training, Patient/Caregiver education & training, Equipment evaluation, education, & procurement, Positioning, Therapeutic activities Goals Patient Goals Patient Goals : go home Short Term Goals Time Frame for Short Term Goals: 12 visits Short Term Goal 1: independent bed mobility with HOB elevated ~30 degrees Short Term Goal 2: independent transfers Short Term Goal 3: independent gait with rollator x 100' Short Term Goal 4: independent stair ambulation x 3 steps with B HRs Minutes PT Individual Minutes Time In: 1020 Time Out: 1102 Minutes: 42 Time Code Minutes Timed Code Treatment Minutes: 42 Minutes Evaluation/treatment performed by Student PT under the supervision of co-signing PT who agrees withall evaluation/treatment and documentation. Cosigned by Ifrah Mckoy, PT at 06/02/2025 12:29 PM EDT * Latoya Felix, FAMILY INTERVENTION SPECIALIST - FL[employer] PRESS OPERATOR - 06/02/2025 9:45 AM EDT Images from the original note were not included. [employer] System Engineer Progress Note Date: 06/02/2025 Patient name: Moustapha Alejandra Date of admission: 05/30/2025 6:58 PM Date of : 1945 PCP: Hannah Gruber MD Reason for Admission: Stroke-like symptoms [R29.90] Elevated troponin [R79.89] Subjective: Clinical Changes / Abnormalities:Pt seen and examined in the room. Pt resting quietly in bed. Pt denies any CP or sob. Labs, vitals and tele reviewed Medications: Scheduled Meds: lidocaine 1 patch TransDERmal Daily aspirin 81 mg Oral Daily sodium chloride flush 5-40 mL IntraVENous 2 times per day atorvastatin 40 mg Oral Nightly Continuous Infusions: [Held by provider] heparin (PORCINE) Infusion Stopped (05/31/25 1445) sodium chloride CBC: Recent Labs 05/31/25 0012 05/31/2544106/02/25 0707 WBC 8.1 7.7 9.4 HGB 8.1* 8.6* 8.0* PLT 275 267 260 BMP: Recent Labs 05/31/25 0442 06/01/25 0642 06/02/25 0707 NA 138 138 137 K 3.5* 4.0 4.3 CL 103 104 103 CO2 BUN 12 14 16 CREATININE 0.7 0.7 0.9 GLUCOSE 101* 101* 119* Hepatic: Recent Labs 05/31/25 0012 AST 25 ALT 9* BILITOT 0.2 ALKPHOS 80 Troponin: Recent Labs 05/31/25 0327 05/31/2505/31/25 2138 TROPHS 222* 236* 215* BNP: No results for input(s): BNP in the last 72 hours. Lipids: Recent Labs 06/01/25 0642 CHOL 172 HDL 82 INR: Recent Labs 05/31/25 0012 INR 1.1 Objective: Vitals: BP 131/60 Pulse 66 Temp 98.3 F (36.8 C) (Axillary) Resp 16 Wt 82 kg (180 lb 12.4 oz) SpO2 99% General appearance: alert and cooperative with exam HEENT: Head: Normocephalic, no lesions, without obvious abnormality. Neck: no JVD, trachea midline, no adenopathy Lungs: Clear to auscultation Heart: Regular rate and rhythm, s1/s2 auscultated, no murmurs Abdomen: soft, non-tender, bowel sounds active Extremities: no edema Neurologic: not done Assessment / Acute Cardiac Problems: NSTEMI, likely secondary to CVA/Anemia PAF S.p ILR Acute infarct of left SHEET METAL PATTERN CUTTER Patient Active Problem List: Stroke-like symptoms NSTEMI (non-ST elevated myocardial infarction) ([facility]) Hyperlipidemia Hypertension Depression Cerebrovascular accident (CVA) ([facility]) Expressive aphasia ACS (acute coronary syndrome) ([facility]) Cardiomyopathy ([facility]) Chest pain Plan of Treatment: ECHO not completed yet. Heparin on hold. Neuro recommending to hold Eliquis 10-14 days after CVA Continue ASA/statin. 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 [phone] * Ashok Manzo MD - 06/02/2025 7:59 AM EDT [facility] Neurology IN-PATIENT SERVICE [facility] Neurology Consult Note Date: 06/02/2025 Patient name: Moustapha Alejandra Date of admission: 05/30/2025 6:58 PM Account: [id number] Date of : 1945 PCP: Hannah Gruber MD Room: 0143/0143-01 Code Status: Full Code Chief Complaint: Aphasia History Obtained From: patient, electronic medical record History of Present Illness: Per consult note The patient is a 80 y.o. female with significant past medical history of hypertension, hyperlipidemia, depression, asthma, history of CVA, A-fib? (On Eliquis) who was referred to us from [facility]. The patient initially presented to the emergency department due to confusion and expressive aphasia. Stroke alert was called on the patient and her NIHSS was 1. Last known well was the night before the day of presentation 04/28/2025. TNK was not given as the patient was outside the window and because of history of anticoagulation. She was loaded with aspirin 325 mg. The patient denied any headaches, blurred vision, falling downs, head trauma, weakness/numbness or any other complaints. Patient was found to have a troponin level of 1166. EKG was interpreted as with no acute findings. Cardiology was consulted, the patient is to be treated as a case of ACS with heparin drip. At arrival and initial evaluation, the patient was alert, oriented to place/time. Motor/sensory functions were intact all over. NIH was 3, for mild aphasia and not answering age/month. 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 No hemorrhagic transformation at that time. Chronic areas of remote infarcts. CTA did not show any evidence of LVOs. Of note the patient's history of CVA left her with expressive aphasia. Her daughter mentioned that she improved significantly after following up with speech therapy, and this was not her baseline. 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 Patient desaturated last night to 51% and neurology was requested for evaluation due to change in neuroexam due to agitation Will repeat CT head today to rule out any hemorrhagic conversion. 06/02:- Patient seen and examined at bedside. Patient is complaining of back pain overnight and is on Mantador for the same. Patient was sleeping the morning, easily arousable. Patient CT scan of head without contrast 06/01/25 did not reveal any hemorrhagic transformation. Echocardiogram is still pending. Heparin is on hold. Past Medical History: No past medical history on file. Past Surgical History: No past surgical history on file. Medications Prior to Admission: Prior to Admission medications Not on File Allergies: Demerol hcl [meperidine], Environmental/seasonal, and Iodinated contrast media Social History: Tobacco: has no history on file for tobacco use. Alcohol: has no history on file for alcohol use. Drug Use: has no history on file for drug use. Family History: No family history on file. Review of Systems: Review of Systems Constitutional: Negative. HENT: Negative. Eyes: Positive for visual disturbance. Respiratory: Negative. Cardiovascular: Negative. Gastrointestinal: Negative. Endocrine: Negative. Musculoskeletal: Negative. Allergic/Immunologic: Negative. Neurological: Positive for speech difficulty. Negative for dizziness, tremors, seizures, syncope, facial asymmetry, weakness, light-headedness, numbness and headaches. Physical Exam: BP (!) 133/54 Pulse 95 Temp 98.8 F (37.1 C) (Oral) Resp 14 Wt 82 kg (180 lb 12.4 oz) [id number]% Temp (24hrs), Av.6 F (37 C), Min:98.4 F (36.9 C), Max:98.8 F (37.1 C) No results for input(s): POCGLU in the last 72 hours. Intake/Output Summary (Last 24 hours) at 06/02/2025 8756 Last data filed at 06/02/2025 0400 Gross per 24 hour Intake 1210 ml Output 1750 ml Net -540 ml Neurological Exam GENERAL Appears comfortable and in no distress HEENT NC/ AT HEART S1 and S2 heard; palpation of pulses: radial pulse NECK Supple and no bruits heard MENTAL STATUS: Alert, oriented to place/person not time, mild to moderate aphasia, intact repetition, impaired naming CRANIAL NERVES: II - complete right homonymous hemianopsia III,IV, - PERR, EOMs full, no ptosis V - Normal facial sensation VII - Normal facial symmetry VIII - Intact hearing IX,X - Symmetrical palate XI - Symmetrical shoulder shrug XII - Midline tongue, no atrophy MOTOR FUNCTION: RUE: Significant for good strength of grade 5/5 in proximal and distal muscle groups LUE: Significant for good strength of grade 5/5 in proximal and distal muscle groups RLE: Significant for good strength of grade 5/5 in proximal and distal muscle groups LLE: Significant for good strength of grade 5/5 in proximal and distal muscle groups Normal bulk, normal tone and no involuntary movements, no tremor SENSORY FUNCTION: Normal touch, normal pinprick, normal vibration, normal proprioception CEREBELLAR FUNCTION: Intact fine motor control over upper limbs and lower limbs REFLEX FUNCTION: Symmetric in upper and lower extremities, no Babinski sign STATION and GAIT Deferred INITIAL NIH STROKE SCALE: 1a. Level of consciousness: 0 - alert; keenly responsive 1b. Level of consciousness questions: 2 - answers neither question correctly 1c. Level of consciousness questions: 0 - performs both tasks correctly 2. Best Gaze: 0 - normal 3. Visual: 2 4. Facial Palsy: 1 5a. Motor left arm: 0 - no drift, limb holds 90 (or 45) degrees for full 10 seconds 5b. Motor right arm: 0 - no drift, limb holds 90 (or 45) degrees for full 10 seconds 6a. Motor left le - no drift; leg holds 30 degree position for full 5 seconds 6b. Motor right le - no drift; leg holds 30 degree position for full 5 seconds 7. Limb Ataxia: 0 - absent 8. Sensory: 0 - normal; no sensory loss 9. Best Language: 1 - mild to moderate aphasia; some obvious loss of fluency or facility of comprehension without significant limitation on ideas expressed or form of expression. Reduction of speech and/or comprehension, however, makes conversation about provided materials difficult or impossible. For example, in conversation about provided materials, examiner can identify picture or naming card content from patient's response. 10. Dysarthria: 0 - normal 11. Extinction and Inattention: 0 - no abnormality TOTAL: 6 Investigations: Laboratory Testing: Recent Results (from the past 24 hours) APTT Collection Time: 06/01/25 3:37 PM Result Value Ref Range APTT 26.5 23.0 - 36.5 sec APTT Collection Time: 06/02/25 1:02 AM Result Value Ref Range APTT 24.9 23.0 - 36.5 sec Basic Metabolic Panel w/ Reflex to MG Collection Time: 06/02/25 7:07 AM Result Value Ref Range Sodium 137 136 - 145 mmol/L Potassium 4.3 3.7 - 5.3 mmol/L Chloride 103 98 - 107 mmol/L CO2 23 20 - 31 mmol/L Anion Gap 11 9 - 16 mmol/L Glucose 119 (H) 74 - 99 mg/dL BUN 16 8 - 23 mg/dL Creatinine 0.9 0.6 - 0.9 mg/dL Est, Glom Filt Rate 65 >60 mL/min/1.73m2 Calcium 9.1 8.6 - 10.4 mg/dL CBC Collection Time: 06/02/25 7:07 AM Result Value Ref Range WBC 9.4 3.5 - 11.3 k/uL RBC 3.54 (L) 3.95 - 5.11 m/uL Hemoglobin 8.0 (L) 11.9 - 15.1 g/dL Hematocrit 27.5 (L) 36.3 - 47.1 % MCV 77.7 (L) 82.6 - 102.9 fL MCH 22.6 (L) 25.2 - 33.5 pg MCHC 29.1 28.4 - 34.8 g/dL RDW 15.8 (H) 11.8 - 14.4 % Platelets 260 138 - 453 k/uL MPV 9.9 8.1 - 13.5 fL NRBC Automated 0.0 0.0 per 100 WBC Assessment : Primary Problem Stroke-like symptoms Active Hospital Problems Diagnosis Date Noted ACS (acute coronary syndrome) (HCC) [I24.9] 06/01/2025 Cardiomyopathy (HCC) [I42.9] 06/01/2025 Chest pain [R07.9] 06/01/2025 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 Acute ischemic infarct involving majority of the left SHEET METAL PATTERN CUTTER territory, with additional small acute punctate infarcts in the left cerebellar hemisphere and left thalamus. Likely cardioembolic, given atrial fibrillation and recent interruption of anticoagulation. Repeat CT head from 06/01/2025 did not reveal any hemorrhagic transformation. Neurocheck per protocol. Heparin is on hold No indication from neurostanoint for aspirin Plan to restart Eliquis ~10-14 days post-stroke if no hemorrhagic transformation on follow-up imaging. Echocardiogram pending Loop recorder interrogation Lipid panel revealed total cholesterol 172, HDL 82, LDL 62 and HbA1c 5.5 Blood pressure goal less than 160 Patient to have outpatient CT scan after 1 week. Continue high intensity statin PT/OT/[employer] Rest of management per primary Patient and Family Stroke Education Patient and/or family Education discussed today: embolic atrial fibrillation and hypertension Stroke Education Topics: Medication Compliance Importance of Followup Patient or family members expressed understanding on topics that were discussed and all their questions were answered. Consultations: IP CONSULT TO CARDIOLOGY IP CONSULT TO NEUROLOGY Follow-up further recommendations after discussing the case with attending The plan was discussed with the patient, patient's family and the medical staff. Patient is admitted as inpatient status because of co-morbidities listed above, severity of signs and symptoms as outlined, requirement for current medical therapies and most importantly because of direct risk to patient if care not provided in a hospital setting. Discussed with NERIS Zimmerman Copy sent to Hannah Islas MD Chintan Jatinbhai Desai, MD Internal Medicine Resident PGY-2 Neurology Service 06/02/2025 7:59 AM Cosigned by Neris Moralez MD at 06/02/2025 4:08 PM EDT Associated attestation - Neris oMralez MD - 06/02/2025 4:08 PM EDT Images from the original note were not included. Attending Physician Statement I have discussed the case of Moustapha Alejandra including pertinent history and exam findings with the resident physician. I reviewed medications, clinical labs, x- rays and other diagnostic tests with theresident physician. I have seen and examined the patient and the bourgeois elements of the encounter have been performed by me. I agree with the assessment, plan and orders as documented by the resident physician. Briefly, this is a 80 y.o. female with hx of HTN, HLD, depression, A-fib (on Eliquis) and prior CVAwas admitted as a transfer from [facility] on 05/30/2025 with confusion and expressive aphasia. Admit vitals 158/68, 81/min, 98.1 F. Patient was evaluated by stroke team; NIH stroke scale was 3 for decreased fluency of speech and orientation questions. Walsh not a candidate for IV TNK as she was outside of therapeutic window and also on anticoagulant therapy. Patient was loaded with aspirin 325 mg. On exam: Speech exam significant for expressive aphasia with perseveration, dysnomia but with good repetition. Does not blink well to threat on right side. 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 Also with chronic remote infarcts. CTA head and neck 05/30/2025 at [facility]: No evidence of LVO MRI brain 05/31/2025: Acute infarct involving majority of left SHEET METAL PATTERN CUTTER territory with a smaller acute infarcts also seen in left cerebellar hemisphere and left thalamus. Repeat CT head 06/01/2025: . Left occipital lobe, thalamus, and cerebellar hemisphere acute infarctsunchanged. No intracranial hemorrhage identified. Impression and Plan: Ms. Moustapha Alejandra is a 80 y.o. female with Cerebral embolism with predominant large infarct in left SHEET METAL PATTERN CUTTER territory as well as left cerebellar and left thalamic ischemic infarcts in the setting of atrial fibrillation: Advised against anticoagulation at this point of time; to repeat noncontrast CT head on 06/08/2025 and if it is negative; then okay to resume anticoagulant, Eliquis, on 06/09/2025. This is discussed in detail with patient and her son at bedside and also with patient's primary attending physician. Echo pending. Will follow with you. This note was partially created using voice recognition software and is inherently subject to errors including those of syntax and sound alike substitutions which may escape proofreading. In such instances, original meaning may be extrapolated by contextual derivation. Neris Moralez MD 06/02/2025 3:59 PM * Latoya Felix APRN - [employer]PERATOR - 06/01/2025 1:15 PM EDT Images from the original note were not included. [employer] Engineer Progress Note Date: 06/01/2025 Patient name: Moustapha Alejandra Date of admission: 05/30/2025 6:58 PM Date of : 1945 PCP: Hannah Gruber MD Reason for Admission: Stroke-like symptoms [R29.90] Elevated troponin [R79.89] Subjective: Clinical Changes / Abnormalities:Pt seen and examined in the room. Pt agitated overnight. Pt deniesany CP or sob. Labs, vitals and tele reviewed- Medications: Scheduled Meds: aspirin 81 mg Oral Daily sodium chloride flush 5-40 mL IntraVENous 2 times per day atorvastatin 40 mg Oral Nightly Continuous Infusions: [Held by provider] heparin (PORCINE) Infusion Stopped (05/31/25 1445) sodium chloride CBC: Recent Labs 05/31/25 0012 05/31/25441 WBC 8.1 7.7 HGB 8.1* 8.6* PLT 275 267 BMP: Recent Labs 05/31/25 0012 05/31/2544106/01/25 0642 NA 140 138 138 K 3.8 3.5* 4.0 CL 104 103 104 CO2 BUN 13 12 14 CREATININE 0.7 0.7 0.7 GLUCOSE 107* 101* 101* Hepatic: Recent Labs 05/31/25 0012 AST 25 ALT 9* BILITOT 0.2 ALKPHOS 80 Troponin: Recent Labs 05/31/25 0327 05/31/2544105/31/25 2138 TROPHS 222* 236* 215* BNP: No results for input(s): BNP in the last 72 hours. Lipids: Recent Labs 06/01/25 0642 CHOL 172 HDL 82 INR: Recent Labs 05/31/25 0012 INR 1.1 Objective: Vitals: BP (!) 159/76 Pulse 92 Temp 98.5 F (36.9 C) (Oral) Resp 22 Wt 82 kg (180 lb 12.4 oz) SpO2 100% General appearance: alert and cooperative with exam HEENT: Head: Normocephalic, no lesions, without obvious abnormality. Neck: no JVD, trachea midline, no adenopathy Lungs: Clear to auscultation Heart: Regular rate and rhythm, s1/s2 auscultated, no murmurs Abdomen: soft, non-tender, bowel sounds active Extremities: no edema Neurologic: not done Assessment / Acute Cardiac Problems: NSTEMI PAF S.p ILR Acute infarct of left SHEET METAL PATTERN CUTTER Patient Active Problem List: Stroke-like symptoms NSTEMI (non-ST elevated myocardial infarction) ([facility]) Hyperlipidemia Hypertension Depression Cerebrovascular accident (CVA) ([facility]) Expressive aphasia ACS (acute coronary syndrome) ([facility]) Cardiomyopathy ([facility]) Chest pain Plan of Treatment: ECHO not completed yet. Heparin on hold. Await Neuro workup Continue ASA/statin. 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 [phone] * Kendy Hernandez, - 06/01/2025 8:33 AM EDT [email or web address] IN-PATIENT SERVICE [facility] Progress Note 06/01/2025 8:36 AM Name: Moustapha Alejandra Acct: [id number] Room: [address] [place] [address] Day: 2 Admit Date: 05/30/2025 6:58 PM PCP: Hannah Gruber MD Code Status: Full Code Subjective: Patient evaluated at bedside, she is alert and oriented x 1-2. States that she did not sleep well last night. Denies any chest pain, shortness of breath, abdominal pain, or any focal weakness. Still noted to have expressive aphasia. Brief History: Per HPI: 80-year-old female with past medical history of CVA(history of aphasia improved after speech therapy), anxiety, asthma, depression, history of right hip fracture uses walker for ambulation, hypertension, atrial fibrillation?? On Eliquis. Presented to outside hospital due to aphasia. Lab workup at outside hospital sodium 135, potassium 3.6, chloride 100, BUN/creatinine 21/0.7, blood glucose 111, normal LFTs, troponin 1166--- 1555. CBC WBC 7.5, hemoglobin 8.9, platelet 315. CT head showed acute/subacute infarct involving the left SHEET METAL PATTERN CUTTER distribution with mild local mass effect no hemorrhagic transformation at this time. Chronic areas of remote infarct. Telestroke was consulted at outside hospital. Patient was out of the window for DKA. Patient low NIHSS score of 1 and already on anticoagulation. Cardiology consulted due to elevated troponin and recommended starting patient on heparin drip. Evaluated patient at bedside. Patient is currently alert oriented to herself and was able to tell me her date of . Unable to tell me the place. Patient denies any weakness in upper and lower extremities or sensory deficits. She woke up around 4 AM last night and noticed unable to find words for simple things and difficulty remembering names of things. Daughter mentioned that patient had a stroke before after which she developed significant aphasia and she went through speech therapy and improved significantly. All the symptoms are new. Patient was unable to tell me the name of simple things like pen, glasses or mobile phone. Patient currently denies any chest pain, shortness of breath, nausea, vomiting, abdominal pain, dysuria urgency or frequency. Patient is scheduled for Watchman procedure outpatient. Medications: Allergies: Allergies Allergen Reactions Demerol Hcl [Meperidine] Environmental/Seasonal Iodinated Contrast Media Current Meds: Scheduled Meds: aspirin 81 mg Oral Daily sodium chloride flush 5-40 mL IntraVENous 2 times per day atorvastatin 40 mg Oral Nightly Continuous Infusions: [Held by provider] heparin (PORCINE) Infusion Stopped (05/31/25 1445) sodium chloride PRN Meds: heparin (porcine), heparin (porcine), sodium chloride flush, sodium chloride, potassium chloride OR potassium alternative oral replacement OR potassium chloride, magnesium sulfate, ondansetron OR ondansetron, polyethylene glycol, acetaminophen OR acetaminophen Data: Past Medical History: has no past medical history on file. Social History: Family History: No family history on file. Vitals: BP (!) 160/57 Pulse 85 Temp 98.5 F (36.9 C) (Oral) Resp 17 Wt 82 kg (180 lb 12.4 oz) VeG148% Temp (24hrs), Av.4 F (36.9 C), Min:98.2 F (36.8 C), Max:98.6 F (37 C) No results for input(s): POCGLU in the last 72 hours. I/O (24Hr): Intake/Output Summary (Last 24 hours) at 06/01/2025 0836 Last data filed at 06/01/2025 0636 Gross per 24 hour Intake 360 ml Output 1340 ml Net -980 ml Labs: Hematology: Recent Labs 05/31/251105/31/25441 WBC 8.1 7.7 RBC 3.57* 3.74* HGB 8.1* 8.6* HCT 27.8* 29.3* MCV 77.9* 78.3* MCH 22.7* 23.0* MCHC 29.1 29.4 RDW 15.8* 15.9* PLT 275 267 MPV 10.1 9.7 INR 1.1 -- Chemistry: Recent Labs 05/31/251105/31/25 0327 05/31/2544105/31/25 2138 06/01/25 0642 NA 140 -- 138 -- 138 K 3.8 -- 3.5* -- 4.0 CL 104 -- 103 -- 104 CO2 -- 25 -- 25 GLUCOSE 107* -- 101* -- 101* BUN 13 -- 12 -- 14 CREATININE 0.7 -- 0.7 -- 0.7 MG -- -- 1.9 -- -- ANIONGAP 11 -- 10 -- 9 LABGLOM 87 -- 87 -- 87 CALCIUM 9.4 -- 9.3 -- 9.3 TROPHS -- 222* 236* 215* -- Recent Labs 05/31/25 0012 AST 25 ALT 9* ALKPHOS 80 BILITOT 0.2 ABG:No results found for: POCPH , PHART , PH , POCPCO2 , YDL1GEP , PCO2 , POCPO2 , PO2ART , PO2 , POCHCO3 , RPP6FVA , HCO3 , NBEA , PBEA , BEART , BE , THGBART , THB , JBR8KBD , PKKU6XFK , V9QVFBCG , O2SAT , FIO2 No results found for: SPECIAL No results found for: CULTURE Radiology: MRI BRAIN WO CONTRAST Addendum Date: 05/31/2025 ADDENDUM #1 The important findings were discussed with Dr. Kendy Hernandez by Dr. Ayad Lacy at 05/31/2025 05:39 PM. 1. Result Date: 05/31/2025 1. Acute infarct involving the majority of the left SHEET METAL PATTERN CUTTER territory, with smaller acute infarcts alsoseen in the anterior/inferior left cerebellar hemisphere and left thalamus. No associated hemorrhage or mass effect. 2. 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 3. Mild burden of scattered white matter FLAIR hyperintensities, likely representing chronic microangiopathic ischemic changes in this age group. Physical Examination: Physical Exam HENT: Head: Normocephalic. Cardiovascular: Rate and Rhythm: Normal rate. Heart sounds: No murmur heard. No friction rub. No gallop. Pulmonary: Breath sounds: No wheezing, rhonchi or rales. Abdominal: Tenderness: There is no abdominal tenderness. There is no guarding or rebound. Musculoskeletal: General: No swelling. Skin: General: Skin is warm. Neurological: Mental Status: She is alert. Comments: Alert and oriented x 1-2, noted to have expressive aphasia Psychiatric: Mood and Affect: Mood normal. Assessment: Hospital Problems Last Modified POA * (Principal) Stroke-like symptoms 05/30/2025 Yes NSTEMI (non-ST elevated myocardial infarction) (HCC) 05/31/2025 Yes Hyperlipidemia 05/31/2025 Yes Hypertension 05/31/2025 Yes Depression 05/31/2025 Yes Cerebrovascular accident (CVA) (HCC) 05/31/2025 Yes Expressive aphasia 05/31/2025 Yes Plan: Acute infarct of the left SHEET METAL PATTERN CUTTER Smaller acute infarcts in the anterior/inferior left cerebellar hemisphere and left thalamus Small chronic transcortical infarcts in the frontal lobes Chronic lacunar infarct in the left cerebellar hemisphere IV heparin stopped yesterday Continue Lipitor and aspirin Repeat CT head today per neurology PT/OT Neurology following, appreciate recommendations NSTEMI HLD Echo ordered IV heparin stopped yesterday Continue aspirin and Lipitor Cardiology following Acute hypoxic respiratory failure likely secondary to above Chest x-ray ordered Continue oxygen supplementation to keep SpO2 greater than 90% Paroxysmal A-fib S/p loop recorder placement Eliquis 5 mg twice daily at home, missed 2 doses Kendy Hernandez DO 06/01/2025 8:36 AM * Edis Kowalski MD - 06/01/2025 7:45 AM EDT [facility] Neurology IN-PATIENT SERVICE [facility] Neurology Consult Note Date: 06/01/2025 Patient name: Moustapha Alejandra Date of admission: 05/30/2025 6:58 PM Account: [id number] Date of : 1945 PCP: Hannah Gruber MD Room: 0143/0143-01 Code Status: Full Code Chief Complaint: Aphasia History Obtained From: patient, electronic medical record History of Present Illness: Per consult note The patient is a 80 y.o. female with significant past medical history of hypertension, hyperlipidemia, depression, asthma, history of CVA, A-fib? (On Eliquis) who was referred to us from [facility]. The patient initially presented to the emergency department due to confusion and expressive aphasia. Stroke alert was called on the patient and her NIHSS was 1. Last known well was the night before the day of presentation 04/28/2025. TNK was not given as the patient was outside the window and because of history of anticoagulation. She was loaded with aspirin 325 mg. The patient denied any headaches, blurred vision, falling downs, head trauma, weakness/numbness or any other complaints. Patient was found to have a troponin level of 1166. EKG was interpreted as with no acute findings. Cardiology was consulted, the patient is to be treated as a case of ACS with heparin drip. At arrival and initial evaluation, the patient was alert, oriented to place/time. Motor/sensory functions were intact all over. NIH was 3, for mild aphasia and not answering age/month. 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 No hemorrhagic transformation at that time. Chronic areas of remote infarcts. CTA did not show any evidence of LVOs. Of note the patient's history of CVA left her with expressive aphasia. Her daughter mentioned that she improved significantly after following up with speech therapy, and this was not her baseline. 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 Patient desaturated last night to 51% and neurology was requested for evaluation due to change in neuroexam due to agitation Will repeat CT head today to rule out any hemorrhagic conversion. Past Medical History: No past medical history on file. Past Surgical History: No past surgical history on file. Medications Prior to Admission: Prior to Admission medications Not on File Allergies: Demerol hcl [meperidine], Environmental/seasonal, and Iodinated contrast media Social History: Tobacco: has no history on file for tobacco use. Alcohol: has no history on file for alcohol use. Drug Use: has no history on file for drug use. Family History: No family history on file. Review of Systems: Review of Systems Constitutional: Negative. HENT: Negative. Eyes: Positive for visual disturbance. Respiratory: Negative. Cardiovascular: Negative. Gastrointestinal: Negative. Endocrine: Negative. Musculoskeletal: Negative. Allergic/Immunologic: Negative. Neurological: Positive for speech difficulty. Negative for dizziness, tremors, seizures, syncope, facial asymmetry, weakness, light-headedness, numbness and headaches. Physical Exam: BP (!) 160/57 Pulse 85 Temp 98.5 F (36.9 C) (Oral) Resp 17 Wt 82 kg (180 lb 12.4 oz) QuN903% Temp (24hrs), Av.4 F (36.9 C), Min:98.1 F (36.7 C), Max:98.6 F (37 C) No results for input(s): POCGLU in the last 72 hours. Intake/Output Summary (Last 24 hours) at 06/01/2025 0796 Last data filed at 06/01/2025 0636 Gross per 24 hour Intake 360 ml Output 1340 ml Net -980 ml Neurological Exam GENERAL Appears comfortable and in no distress HEENT NC/ AT HEART S1 and S2 heard; palpation of pulses: radial pulse NECK Supple and no bruits heard MENTAL STATUS: Alert, oriented to place/person not time, mild to moderate aphasia, intact repetition, impaired naming CRANIAL NERVES: II - complete right homonymous hemianopsia III,IV, - PERR, EOMs full, no ptosis V - Normal facial sensation VII - Normal facial symmetry VIII - Intact hearing IX,X - Symmetrical palate XI - Symmetrical shoulder shrug XII - Midline tongue, no atrophy MOTOR FUNCTION: RUE: Significant for good strength of grade 5/5 in proximal and distal muscle groups LUE: Significant for good strength of grade 5/5 in proximal and distal muscle groups RLE: Significant for good strength of grade 5/5 in proximal and distal muscle groups LLE: Significant for good strength of grade 5/5 in proximal and distal muscle groups Normal bulk, normal tone and no involuntary movements, no tremor SENSORY FUNCTION: Normal touch, normal pinprick, normal vibration, normal proprioception CEREBELLAR FUNCTION: Intact fine motor control over upper limbs and lower limbs REFLEX FUNCTION: Symmetric in upper and lower extremities, no Babinski sign STATION and GAIT Deferred INITIAL NIH STROKE SCALE: 1a. Level of consciousness: 0 - alert; keenly responsive 1b. Level of consciousness questions: 2 - answers neither question correctly 1c. Level of consciousness questions: 0 - performs both tasks correctly 2. Best Gaze: 0 - normal 3. Visual: 2 4. Facial Palsy: 1 5a. Motor left arm: 0 - no drift, limb holds 90 (or 45) degrees for full 10 seconds 5b. Motor right arm: 0 - no drift, limb holds 90 (or 45) degrees for full 10 seconds 6a. Motor left le - no drift; leg holds 30 degree position for full 5 seconds 6b. Motor right le - no drift; leg holds 30 degree position for full 5 seconds 7. Limb Ataxia: 0 - absent 8. Sensory: 0 - normal; no sensory loss 9. Best Language: 1 - mild to moderate aphasia; some obvious loss of fluency or facility of comprehension without significant limitation on ideas expressed or form of expression. Reduction of speech and/or comprehension, however, makes conversation about provided materials difficult or impossible. For example, in conversation about provided materials, examiner can identify picture or naming card content from patient's response. 10. Dysarthria: 0 - normal 11. Extinction and Inattention: 0 - no abnormality TOTAL: 6 Investigations: Laboratory Testing: Recent Results (from the past 24 hours) APTT Collection Time: 05/31/25 1:36 PM Result Value Ref Range APTT 32.4 23.0 - 36.5 sec Troponin Collection Time: 05/31/25 9:38 PM Result Value Ref Range Troponin, High Sensitivity 215 (HH) 0 - 14 ng/L Basic Metabolic Panel w/ Reflex to MG Collection Time: 06/01/25 6:42 AM Result Value Ref Range Sodium 138 136 - 145 mmol/L Potassium 4.0 3.7 - 5.3 mmol/L Chloride 104 98 - 107 mmol/L CO2 25 20 - 31 mmol/L Anion Gap 9 9 - 16 mmol/L Glucose 101 (H) 74 - 99 mg/dL BUN 14 8 - 23 mg/dL Creatinine 0.7 0.6 - 0.9 mg/dL Est, Glom Filt Rate 87 >60 mL/min/1.73m2 Calcium 9.3 8.6 - 10.4 mg/dL APTT Collection Time: 06/01/25 6:42 AM Result Value Ref Range APTT 24.9 23.0 - 36.5 sec Assessment : Primary Problem Stroke-like symptoms Active Hospital Problems Diagnosis Date Noted NSTEMI (non-ST elevated myocardial infarction) (HCC) [I21.4] 05/31/2025 Hyperlipidemia [E78.5] 05/31/2025 Hypertension [I10] 05/31/2025 Depression [F32.A] 05/31/2025 Cerebrovascular accident (CVA) (HCC) [I63.9] 05/31/2025 Expressive aphasia [R47.01] 05/31/2025 Stroke-like symptoms [R29.90] 05/30/2025 80-year-old female with past history of hypertension, hyperlipidemia, atrial fibrillation (previously on Eliquis, missed 2 doses), asthma, depression, and prior CVA, now presenting with acute ischemic stroke. Acute ischemic infarct involving majority of the left SHEET METAL PATTERN CUTTER territory, with additional small acute punctate infarcts in the left cerebellar hemisphere and left thalamus. Likely cardioembolic, given atrial fibrillation and recent interruption of anticoagulation. Repeat CT head today Neurocheck per protocol. We recommend to stop heparin No indication from neurostandpoint for aspirin Plan to restart Eliquis ~10-14 days post-stroke if no hemorrhagic transformation on follow-up imaging. Echocardiogram pending Loop recorder interrogation Lipid panel and HbA1c pending Blood pressure goal less than 160 Continue high intensity statin PT/OT/[employer]PER[employer] Rest of management per primary Patient and Family Stroke Education Patient and/or family Education discussed today: embolic atrial fibrillation and hypertension Stroke Education Topics: Medication Compliance Importance of Followup Patient or family members expressed understanding on topics that were discussed and all their questions were answered. Consultations: IP CONSULT TO CARDIOLOGY IP CONSULT TO NEUROLOGY Follow-up further recommendations after discussing the case with attending The plan was discussed with the patient, patient's family and the medical staff. Patient is admitted as inpatient status because of co-morbidities listed above, severity of signs and symptoms as outlined, requirement for current medical therapies and most importantly because of direct risk to patient if care not provided in a hospital setting. Discussed with NERIS Zimmerman Copy sent to Hannah Islas MD Mustafa Abdul Kareem, MD Neurology Resident PGY-2 06/01/2025 7:45 AM Cosigned by Neris Moralez MD at 06/01/2025 6:04 PM EDT Associated attestation - Neris Moralez MD - 06/01/2025 6:04 PM EDT Attending Physician Statement I have discussed the case of Moustapha Alejandra including pertinent history and exam findings with the resident physician. I reviewed medications, clinical labs, x- rays and other diagnostic tests with theresident physician. I have seen and examined the patient and the bourgeois elements of the encounter have been performed by me. I agree with the assessment, plan and orders as documented by the resident physician. Briefly, this is a 80 y.o. female with hx of HTN, HLD, depression, A-fib (on Eliquis) and prior CVAwas admitted as a transfer from [facility] on 05/30/2025 with confusion and expressive aphasia. Admit vitals 158/68, 81/min, 98.1 F. Patient was evaluated by stroke team; NIH stroke scale was 3 for decreased fluency of speech and orientation questions. Walsh not a candidate for IV TNK as she was outside of therapeutic window and also on anticoagulant therapy. Patient was loaded with aspirin 325 mg. On exam: Speech exam significant for expressive aphasia with perseveration, dysnomia but with good repetition. Does not blink well to threat on right side. 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 Also with chronic remote infarcts. CTA head and neck 05/30/2025 at [facility]: No evidence of LVO MRI brain 05/31/2025: Acute infarct involving majority of left SHEET METAL PATTERN CUTTER territory with a smaller acute infarcts also seen in left cerebellar hemisphere and left thalamus. Repeat CT head 06/01/2025: . Left occipital lobe, thalamus, and cerebellar hemisphere acute infarctsunchanged. No intracranial hemorrhage identified. Impression and Plan: Ms. Moustapha Alejandra is a 80 y.o. female with Expressive aphasia with abnormal CT head concerning for acute/subacute infarct in left SHEET METAL PATTERN CUTTER territory: Was evaluated by stroke team and felt not a candidate for IV TNK as she was outside of therapeutic window and also was on anticoagulant therapy with Eliquis for comorbid atrial fibrillation; was loaded with aspirin 324 mg. MRI brain showed acute left SHEET METAL PATTERN CUTTER ischemic infarction for which heparin was held. CT head repeated on06/01/2025 with no evidence of acute intracranial bleed. To continue PT/OT/speech therapies echocardiogram pending Comorbid atrial fibrillation: On Eliquis at home; patient is placed on IV heparin due to NSTEMI; cardiology on board; echo pending Recommend to hold IV heparin now and okay to resume Eliquis about 10-14 days after stroke onset if repeat CT head negative for hemorrhagic transformation Care plan is discussed with patient and her nurse at bedside. Will follow with you. This note was partially created using voice recognition software and is inherently subject to errors including those of syntax and sound alike substitutions which may escape proofreading. In such instances, original meaning may be extrapolated by contextual derivation. Neris Moralez MD 06/01/2025 2:20 PM * Susie Flores RN - 06/01/2025 5:03 AM EDT Patient desatted to 51% with perfect waveform, no artifact. Pt agreeable to nasal cannula since talking to Sugey earlier in the night. When speaking with Sugey, she stated the patient thinks nurses are just trying to fix her without finding the cause of the problem . * Susie Flores RN - 06/01/2025 1:28 AM EDT Pt trying to call Sugey and Alvaro. Supervisor Vat House and Salena QUIROGA at bedside assisting pt with trying to makethe calls. Supervisor Vat House asked if she could leave a voicemail detailing the situation. Pt refused. Pt said Sugey will have your head . Pt left a voicemail for Sugey saying I'm in trouble, it's the doctorsand nurses here . Attempts to educate patient about why the need for oxygen were not successful. Ptasking why we're doing this to her and that she will wear oxygen during the day but not at night. * Susie Flores RN - 06/01/2025 1:09 AM EDT At 0044 patient desatted to 76% sustained with a perfect waveform and eupnea. Patient was sleeping at this time. This is the second time patient has been hypoxic tonight. The first time, patient refused oxygen device sternly. Neuro resident to bedside to assess patient for concerns of declining neuro status d/t new onset confusion and agitation. This time, patient refusing and becoming verbally and physically aggressive with staff. 3 nurses at bedside attempting to keep patient from impulsivelygetting up and from injuring self or others. Patient telling staff she will wear the oxygen if her son or Sugey tell her to. Says we need to stop giving her problems or she will show us a problem . See new orders. Plan of care ongoing. * Rachana Eldridge APRN - NP - 05/31/2025 5:17 PM EDT Neurology advised to hold heparin gtt. Gtt held. Dr. Larry notified * Kendy Hernandez DO - 05/31/2025 3:19 PM EDT @[email or web address]@ [facility] IN-PATIENT SERVICE [facility] Second Visit Note For more detailed information please refer to the progress note of the day 05/31/2025 3:20 PM Name: Moustapha Alejandra Acct: [id number] Room: 0143/0143-01 Day: 1 Admit Date: 05/30/2025 6:58 PM PCP: Hannah Gruber MD Code Status: Full Code Pt vitals were reviewed New labs were reviewed Patient was seen Updated plan : CVA MRI brain pending Continue aspirin, Lipitor Neurology following, appreciate recommendations NSTEMI Continue IV heparin, aspirin, Lipitor Echo ordered Cardiology following Kendy Hernandez DO 05/31/2025 3:20 PM * Courtney Villareal, PT - 05/31/2025 3:02 PM EDT Facility/Department: [address] [facility] Physical Therapy Initial Evaluation Patient Name: Moustapha Alejandra : 1945 Date of Service: 05/31/2025 80-year-old female with past medical history of CVA(history of aphasia improved after speech therapy), anxiety, asthma, depression, history of right hip fracture uses walker for ambulation, hypertension, atrial fibrillation?? On Eliquis. Presented to outside hospital due to aphasia. Past Medical History: has no past medical history on file. Past Surgical History: has no past surgical history on file. Discharge Recommendations In my professional opinion, this patient could tolerate a total of 3 hours of combined therapies post-acute care. PT Equipment Recommendations Equipment Needed: No Assessment Pt cooperative, word finding problems, R visual issues with 1 episode running into the wall on her R, and a tendency to steer to her L using rwalker in the hallway. Bed mobility min A+1, transfers with min A+1, gait rwalker min A+1, R visual issues requiring assistance to avoid objects, assist withsteering. Pt is currently unsafe for home DC and is expected to benefit from continued therapies toimprove her ability to mobilize and function independently Body Structures, Functions, Activity Limitations Requiring Skilled Therapeutic Intervention: Decreased functional mobility , Decreased body mechanics, Decreased strength, Decreased safe awareness, Decreased balance, Decreased vision/visual deficit, Decreased posture Therapy Prognosis: Good Decision Making: Medium Complexity Requires PT Follow-Up: Yes Activity Tolerance Activity Tolerance: Patient tolerated treatment well Safety Devices Type of Devices: (pt on stretcher to go to MRI at end of PT session) [facility] Basic Mobility - Inpatient How much help is needed turning from your back to your side while in a flat bed without using bedrails?: A Little How much help is needed moving from lying on your back to sitting on the side of a flat bed withoutusing bedrails?: A Little How much help is needed moving to and from a bed to a chair?: A Little How much help is needed standing up from a chair using your arms?: A Little How much help is needed walking in hospital room?: A Little How much help is needed climbing 3-5 steps with a railing?: A Lot [facility] Inpatient Mobility Raw Score : 17 [facility] Inpatient T-Scale Score : 42.13 Mobility Inpatient CMS 0-100% Score: 50.57 Mobility Inpatient CMS G-Code Modifier : CK Restrictions/Precautions Restrictions/Precautions Restrictions/Precautions: Fall Risk Activity Level: Up as Tolerated, Up with Assist Required Braces or Orthoses?: No Restraints Restraints Initially in Place: No Subjective General Patient assessed for rehabilitation services?: Yes Response To Previous Treatment: Not applicable Family/Caregiver Present: Yes (dtr) Follows Commands: Within Functional Limits Subjective Subjective: denies pain Home Setup/Prior Level of Function Social/Functional History Lives With: Spouse Type of Home: House Home Layout: One level Home Access: Stairs to enter with rails Entrance Stairs - Number of Steps: 3 Entrance Stairs - Rails: Both Bathroom Shower/Tub: Walk-in shower Bathroom Toilet: Standard Bathroom Equipment: Shower chair, Tub transfer bench Home Equipment: Adjustable bed, Walker - Rolling, Rollator (primarily uses rollator at home) Receives Help From: Family Prior Level of Assist for ADLs: Independent Prior Level of Assist for Homemaking: Independent Homemaking Responsibilities: Yes Prior Level of Assist for Ambulation: Independent household ambulator, with or without device, Independent community ambulator, with or without device Prior Level of Assist for Transfers: Independent Active Senior Instrumentation Engineer: No Patient's Senior Instrumentation Engineer Info: Spouse Occupation: Retired Leisure & Hobbies: cat Vision/Hearing Vision Vision: Impaired Vision Exceptions: Wears glasses at all times (pt appears to have difficulty seeing to her R and did run into the wall x1, and had a tendency to steer the walker to her L) Hearing Hearing: Impaired Hearing Exceptions: Hard of hearing/hearing concerns, Bilateral hearing aid Objective Orientation Overall Orientation Status: Impaired Orientation Level: Oriented to person;Oriented to situation;Disoriented to time;Oriented to place (pt with speech difficulties--often couldn't find the words to say what she wanted) Cognition Overall Cognitive Status: Exceptions Arousal/Alertness: Appears intact Following Commands: Follows multistep commands with repetition;Follows multistep commands with increased time Attention Span: Attends with cues to redirect Memory: Impaired Safety Judgement: Decreased awareness of need for assistance;Decreased awareness of need for safety Problem Solving: Assistance required to generate solutions;Assistance required to correct errors made;Assistance required to identify errors made;Decreased awareness of errors;Assistance required to implement solutions Insights: Decreased awareness of deficits Initiation: Requires cues for some Sequencing: Requires cues for some Cognition Comment: Poor awareness of errors, pt consistently forgeting to place brakes on rollator,word-finding difficulty throughout sesson Observation/Palpation Posture: Fair Observation: mildly flexed posture; tends to stay too far away from the rwalker when ambulating, ran into wall x 1 on his R, tended to steer walker to the L side of the [place] and needed physical assistance to correct PROM RLE (degrees) RLE PROM: WFL PROM LLE (degrees) LLE PROM: WFL PROM RUE (degrees) RUE PROM: WFL PROM LUE (degrees) LUE PROM: WFL Strength RLE Strength RLE: WFL Strength LLE Strength LLE: WFL Strength RUE Strength RUE: Exception--R shoulder 2+/5; elbow distal WFL Strength LUE Strength LUE: WFL Mobility Bed mobility Rolling to Left: Minimal assistance Rolling to Right: Minimal assistance Supine to Sit: Minimal assistance Sit to Supine: Minimal assistance Scooting: Contact guard assistance Bed Mobility Comments: pt moved from supine to sit to get OOB; sit to supine to get on stretcher togo to MRI Transfers Sit to Stand: Stand by assistance Stand to Sit: Stand by assistance Bed to Chair: Minimal assistance Stand Pivot Transfers: Minimal Assistance Ambulation Surface: Level tile Device: Rolling Walker Assistance: Minimal assistance Quality of Gait: mildly flexed posture, ran into the wall x 1 on her R w/o being aware she was close to the wall; tended to steer rwalker to the L side of the hallway and needed physical assistance to redirect Gait Deviations: Decreased arm swing;Decreased head and trunk rotation;Deviated path Distance: 25'x1; 60'x1 seated rest break in between Stairs/Curb Stairs?: No Balance Balance Posture: Fair Sitting - Static: Good Sitting - Dynamic: Good Standing - Static: Fair Standing - Dynamic: Poor Comments: standing balance w/o device Exercise PT Exercises Exercise Treatment: ankle pumps A/AROM Exercises: BLEs ex in bed x 5 reps: heel slides and SAQs; AAROM R shoulder elevation x 3 reps Patient Education Patient Education Education Given To: Patient;Family Education Provided: Role of Therapy;Plan of Care;Home Exercise Program;Precautions;Transfer Training;Mobility Training;Equipment;Low Vision Education;Fall Prevention Strategies Education Method: Verbal Barriers to Learning: Other (Comment) (aphasia) Education Outcome: Verbalized understanding;Continued education needed Plan Physical Therapy Plan General Plan: 6-7 times per week Current Treatment Recommendations: Strengthening, ROM, Balance training, Functional mobility training, Transfer training, Gait training, Stair training, Neuromuscular re-education, Home exercise program, Safety education & training, Patient/Caregiver education & training, Equipment evaluation, education, & procurement, Positioning, Therapeutic activities Goals Patient Goals Patient Goals : go home Short Term Goals Time Frame for Short Term Goals: 12 visits Short Term Goal 1: independent bed mobility with HOB elevated ~30 degrees Short Term Goal 2: independent transfers Short Term Goal 3: independent gait with rollator x 100' Short Term Goal 4: independent stair ambulation x 3 steps with B HRs Minutes PT Individual Minutes Time In: 1401 Time Out: 1433 Minutes: 32 Time Code Minutes Timed Code Treatment Minutes: 23 Minutes * Evangelista Mccloud, OT - 05/31/2025 12:05 PM EDT Occupational Therapy Occupational Therapy Initial Evaluation Facility/Department: [address] [facility] Patient Name: Moustapha Alejandra : 1945 Date of Service: 05/31/2025 No chief complaint on file. Past Medical History: has no past medical history on file. Past Surgical History: has no past surgical history on file. Discharge Recommendations Discharge Recommendations: Patient would benefit from continued therapy after discharge Assessment Performance deficits / Impairments: Decreased ADL status;Decreased functional mobility ;Decreased endurance;Decreased balance;Decreased high-level IADLs;Decreased cognition;Decreased safe awareness Prognosis: Good Decision Making: Medium Complexity REQUIRES OT FOLLOW-UP: Yes Activity Tolerance Activity Tolerance: Treatment limited secondary to decreased cognition Safety Devices Type of Devices: Left in bed, Nurse notified, Call light within reach, Patient at risk for falls, Bed alarm in place AM-PAC AM-PAC Daily Activity - Inpatient How much help is needed for putting on and taking off regular lower body clothing?: A Lot How much help is needed for bathing (which includes washing, rinsing, drying)?: A Lot How much help is needed for toileting (which includes using toilet, bedpan, or urinal)?: A Lot How much help is needed for putting on and taking off regular upper body clothing?: A Lot How much help is needed for taking care of personal grooming?: A Little How much help for eating meals?: A Little [facility] Inpatient Daily Activity Raw Score: 14 [facility] Inpatient ADL T-Scale Score : 33.39 ADL Inpatient CMS 0-100% Score: 59.67 ADL Inpatient CMS G-Code Modifier : CK Restrictions/Precautions Restrictions/Precautions Restrictions/Precautions: Fall Risk;General Precautions Activity Level: Up with Assist Required Braces or Orthoses?: No Restraints Restraints Initially in Place: No Subjective General Patient assessed for rehabilitation services?: Yes Family / Caregiver Present: Yes (Dtr, spouse) Diagnosis: Aphasia, CVA symptoms, L SHEET METAL PATTERN CUTTER infarcts Subjective Subjective: RN approved therapy session, pt cooperative throughout Pain Pre-Pain: 0 Post-Pain: 0 Home Setup/Prior Level of Function Social/Functional History Lives With: Spouse Type of Home: House Home Layout: One level Home Access: Stairs to enter with rails Entrance Stairs - Number of Steps: 3 Bathroom Shower/Tub: Walk-in shower Bathroom Toilet: Standard Bathroom Equipment: Shower chair;Tub transfer bench Home Equipment: Walker - Rolling;Walker - 4-Wheeled Prior Level of Assist for ADLs: Independent Prior Level of Assist for Homemaking: Independent Homemaking Responsibilities: Yes Prior Level of Assist for Ambulation: Independent household ambulator, with or without device;Independent community ambulator, with or without device Prior Level of Assist for Transfers: Independent Active Senior Instrumentation Engineer: No Patient's Senior Instrumentation Engineer Info: Spouse Occupation: Retired Leisure & Hobbies: cat Vision/Hearing Vision Vision: Impaired Vision Exceptions: Wears glasses at all times Hearing Hearing: Exceptions to [facility] Hearing Exceptions: Bilateral hearing aid;Hard of hearing/hearing concerns E Assessment Gross Assessment AROM: Within functional limits ([facility] however later had issues combing hair with RUE-old deficits at RUE shoulder) PROM: Within functional limits Strength: Within functional limits (4+/5 grossly at BUE) Coordination: Within functional limits Tone: Normal Sensation: Intact Hand Dominance: Right Objective Orientation Overall Orientation Status: Impaired Orientation Level: Oriented to person;Oriented to situation;Disoriented to time;Oriented to place Cognition Overall Cognitive Status: Exceptions Following Commands: Follows multistep commands with repetition;Follows multistep commands with increased time Safety Judgement: Decreased awareness of need for assistance;Decreased awareness of need for safety Problem Solving: Assistance required to generate solutions;Assistance required to correct errors made;Assistance required to identify errors made;Decreased awareness of errors;Assistance required to implement solutions Insights: Decreased awareness of deficits Initiation: Requires cues for some Sequencing: Requires cues for some Cognition Comment: Poor awareness of errors, pt consistently forgeting to place brakes on rollator,word-finding difficulty [facility] Activities of Daily Living Feeding: Contact guard assistance;Verbal cueing;Setup;Increased time to complete Grooming: Minimal assistance;Increased time to complete;Setup UE Bathing: Moderate assistance;Increased time to complete;Setup LE Bathing: Moderate assistance;Increased time to complete;Setup UE Dressing: Moderate assistance;Increased time to complete;Setup LE Dressing: Setup;Increased time to complete;Moderate assistance Putting On/Taking Off Footwear: Moderate assistance;Increased time to complete;Setup Toileting: Setup;Increased time to complete;Moderate assistance Additional Comments: Pt supine in bed upon arrival, pt transferred to R side of bed and performed B/L figure-4 technique and doffed/donned R sock, pt doffed sock fairly easily but struggled to don sock so sock-aid was used-mild confusion noted, pt demo'd good strenth at BUEs overall, pt stood and transferred to sinkside across room to comb hair, pt used RUE but relired on LUE for own [id number] assist to RUE d/t old R shoulder deficits, pt sat on toilet for successul urination and charissa-bottom care, pt stood sinkside again for hand- washing before retuening to EOB, pt was sat on new brief and purewick placed, pt returned to supine in bed and retired atempting to take meds with RN present ( struggled to take large pills) Balance Balance Sitting: (Pt sat on EOB/toilet unsupported for total of 29 min at SUP) Standing: (Pt stood bedside/sinkside for total of 12 min at SBA, rollator used/leaned on sink at times) Transfers/Mobility Bed mobility Supine to Sit: Minimal assistance Sit to Supine: Minimal assistance Scooting: Contact guard assistance Transfers Sit to stand: Contact guard assistance Stand to sit: Contact guard assistance Toilet Transfers Toilet - Technique: Ambulating Equipment Used: Standard toilet Toilet Transfer: Contact guard assistance Functional Mobility: Contact guard assistance;Increased time to complete;Setup Functional Mobility Skilled Clinical Factors: Func mob around room to/from bathroom using spouse's rollator, often forgetting to place brakes on (one brake broken anyhow), mild all risk Patient Education Patient Education Education Given To: Patient;Family Education Provided: Role of Therapy;Plan of Care;Family Education Education Provided Comments: Rehab information, CVA symptoms, using brakes on 4ww Barriers to Learning: Cognition Education Outcome: Continued education needed Goals Short Term Goals Time Frame for Short Term Goals: Pt will by d/c Short Term Goal 1: demo good safety awareness during func mob around room using LRAD PRN at SUP Short Term Goal 2: demo ADL UB bathing/dressing activity at mod I Short Term Goal 3: demo ADL LB bathing/dressing activity at SBA Short Term Goal 4: demo all bed mobility, including rolling, using bedrails PRN at mod I Short Term Goal 5: demo bending/reaching high/low func activity for 8 min+, while standing, using LRAD PRN and mod I Plan Occupational Therapy Plan Times Per Week: 4-5x Current Treatment Recommendations: Balance training, Functional mobility training, Endurance training, Pain management, Safety education & training, Patient/Caregiver education & training, Equipment evaluation, education, & procurement, Self-Care / ADL, Home management training Minutes OT Individual Minutes Time In: 1010 Time Out: 1111 Minutes: 61 Time Code Minutes Timed Code Treatment Minutes: 53 Minutes * Edis Kowalski MD - 05/31/2025 9:00 AM EDT Patient seen and examined during rounds, patient stated that she missed 2 dose of Eliquis, will interrogate the loop recorder NIH Stroke Scale Total (if not done complete detailed one below): 1a. Level of consciousness: 0 - alert; keenly responsive 1b. Level of consciousness questions: 2 - answers neither question correctly 1c. Level of consciousness questions: 0 - performs both tasks correctly 2. Best Gaze: 0 - normal 3. Visual: 2 - complete hemianopia 4. Facial Palsy: 1 - minor paralysis (flattened nasolabial fold, asymmetric on smiling) 5a. Motor left arm: 0 - no drift, limb holds 90 (or 45) degrees for full 10 seconds 5b. Motor right arm: 0 - no drift, limb holds 90 (or 45) degrees for full 10 seconds 6a. Motor left le - no drift; leg holds 30 degree position for full 5 seconds 6b. Motor right le - no drift; leg holds 30 degree position for full 5 seconds 7. Limb Ataxia: 0 - absent 8. Sensory: 0 - normal; no sensory loss 9. Best Language: 1 - mild to moderate aphasia; some obvious loss of fluency or facility of comprehension without significant limitation on ideas expressed or form of expression. Reduction of speech and/or comprehension, however, makes conversation about provided materials difficult or impossible. For example, in conversation about provided materials, examiner can identify picture or naming card content from patient's response. 10. Dysarthria: 0 - normal 11. Extinction and Inattention: 0 - no abnormality Systolic pressure goal less than 200 for now, can start normalize blood pressure start from tomorrow, we ordered repeat CT head as heparin therapeutic, awaiting MRI brain. From neurostandpoint no need to continue aspirin, transition to Eliquis 5 mg twice daily once okay from primary * Brianne Shafer RN - 05/30/2025 7:50 PM EDT Patients [facility]. [facility]* Discharge Instructions* Kendy Hernandez DO - 06/03/2025 8:33 AM EDT Continue taking medications as prescribed Follow-up with PCP, neurology, and cardiology outpatient Return to the ED for any worsening symptoms * Discharge Instr - AMANDA* Yomaira Todd MD - 06/03/2025 8:40 AM EDT Continuity of Care Form Patient Name: Moustapha Alejandra : 1945 Admit date: 05/30/2025 Discharge date: 06/03/25 Code Status Order: Full Code Advance Directives: Admitting Physician: No admitting provider for patient encounter. PCP: Hannah Gruber MD Discharging Nurse: Julianna QUIROGA Discharging Hospital Unit/Room#: 0143/0143-01 Discharging Unit Emergency Contact: Extended Emergency Contact Information Primary Emergency Contact: Sugey Currie Relation: Child Secondary Emergency Contact: Alvaro Alejandra Relation: Child Past Surgical History: No past surgical history on file. Immunization History: There is no immunization history on file for this patient. 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 ([facility]) I63.432 Isolation/Infection: Isolation No Isolation Patient Infection Status None to display Nurse Assessment: Last Vital Signs: BP (!) 142/52 Pulse 81 Temp 98.8 F (37.1 C) (Axillary) Resp 16 Wt 82 kg (180 lb 12.4 oz) SpO2 99% Last documented pain score (0-10 scale): Pain Level: 0 Last Weight: Wt Readings from Last 1 Encounters: 05/30/25 82 kg (180 lb 12.4 oz) Mental Status: alert and oriented to self, situation; occasionally oriented to place, usually disoriented to time IV Access: - None Nursing Mobility/ADLs: Walking Assisted Transfer Assisted Bathing Assisted Dressing Assisted Toileting Assisted Feeding Independent [employer] And Planning Assisted Med Delivery whole and one at a time Wound Care Documentation and Therapy: Elimination: Continence: Bowel: occasional Bladder: occasional Urinary Catheter: None Colostomy/Ileostomy/Ileal Conduit: No Date of Last BM: 06/03/25 Intake/Output Summary (Last 24 hours) at 06/03/2025 0840 Last data filed at 06/02/2025 1318 Gross per 24 hour Intake 1200 ml Output -- Net 1200 ml I/O last 3 completed shifts: In: 1200 [P.O.:1200] Out: 1250 [Urine:1250] Safety Concerns: At Risk for Falls and possible early dementia? Impairments/Disabilities: Hearing Nutrition Therapy: Current Nutrition Therapy: - Oral Diet: General Routes of Feeding: Oral Liquids: No Restrictions Daily Fluid Restriction: no Last Modified Barium Swallow with Video (Video Swallowing Test): not done Treatments at the Time of Hospital Discharge: Respiratory Treatments: none Oxygen Therapy: is not on home oxygen therapy. Ventilator: - No ventilator support Rehab Therapies: Physical Therapy, Occupational Therapy, and Speech/Language Therapy Weight Bearing Status/Restrictions: No weight bearing restrictions Other Medical Equipment (for information only, NOT a DME order): walker, wheelchair Other Treatments: n/a Patient's personal belongings (please select all that are sent with patient): Hearing Aides bilateral RN SIGNATURE: CASE MANAGEMENT/SOCIAL WORK SECTION Inpatient Status Date: Readmission Risk Assessment Score: [facility] RISK OF UNPLANNED READMISSION 2.0 14.5 Total Score Discharging to Facility/ Agency Name: [facility] Address: Phone: Fax: Dialysis Facility (if applicable) Name: Address: Dialysis Schedule: Phone: Fax: Back End Web Developer/Lead Furnace Operator signature: PHYSICIAN SECTION Prognosis: Fair Condition at Discharge: Stable Rehab Potential (if transferring to Rehab): Fair Recommended Labs or Other Treatments After Discharge: Continue taking medications as prescribed Follow-up with PCP and cardiology Physician Certification: I certify the above information and transfer of Moustapha Alejandra is necessaryfor the continuing treatment of the diagnosis listed and that she requires Acute Rehab for greater 30 days. Update Admission H&P: No change in H&P PHYSICIAN SIGNATURE: * Attachments The following attachments cannot be sent through Care Everywhere. * Stroke: Know the Signs and BE FAST: Video (Amharic) * Stroke (Amharic) * Stroke: Symptoms: General Info (Amharic) documented in this encounterBon [facility] NotePre-procedure prednisone ordersSumma Health06-10-2025 NoteEntered by Amy Villaseñor on March 01, 2025 08:00:56 EDT From: Amy Villaseñor To: [facility] Sent: 03/01/2025 08:00:56 EDT Subject: Medication Management Submitted: Complete:amLODIPine (amLODIPine 10 mg oral tablet) Signed by Amy Villaseñor 03/01/2025 08:00:00 EDT Approved with modifications: amLODIPine (amLODIPine Besylate 10 MG Oral Tablet) TAKE 1 TABLET BY MOUTH DAILY Qty: 90 tab(s) Days Supply: 90 Refills: 3 Substitutions Allowed Route To Pharmacy - [facility] Note from Pharmacy: Please send a replace/new response with 90-Day Supply if appropriate to maximize member benefit. Requesting 1 year supply. Signed by Amy Villaseñor From: [facility] To: Hannah Gruber MD Sent: February 28, 2025 10:02:47 PM CDT Subject: Medication Management Due: March 01, 2025 12:03:20 AM CDT On Hold Pending Signature Drug: amLODIPine (amLODIPine 10 mg oral tablet), TAKE 1 TABLET BY MOUTH DAILY Quantity: 90 tab(s) Days Supply: 90 Refills: 3 Substitutions Allowed Notes from Pharmacy: - First Attempt Ref: [id number] Dispensed Drug: amLODIPine (amLODIPine 10 mg oral tablet), TAKE 1 TABLET BY MOUTH DAILY Quantity: 90 tab(s) Days Supply: 90 Refills: 3 Substitutions Allowed Notes from Pharmacy: Please send a replace/new response with 90-Day Supply if appropriate to maximize member benefit. Requesting 1 year supply. [id number] Note Entered by Amy Villaseñor on 2025 07:40:42 EDT From: Amy Villaseñor To: [facility] Sent: 2025 07:40:42 EDT Subject: Medication Management Submitted: Complete:hydroCHLOROthiazide (hydroCHLOROthiazide 25 mg oral tablet) Signed by Amy Villaseñor KIRTI 2025 07:40:00 EDT Approved with modifications: hydroCHLOROthiazide (hydroCHLOROthiazide 25 MG Oral Tablet) TAKE 1 TABLET BY MOUTH DAILY Qty: 90 tab(s) Days Supply: 90 Refills: 3 Substitutions Allowed Route To Pharmacy - [facility] Note from Pharmacy: Please send a replace/new response with 90-Day Supply if appropriate to maximize member benefit. Requesting 1 year supply. Signed by Amy Villaseñor OLIVAMary From: [facility] To: Hannah Gruber MD Sent: February 15, 2025 10:00:57 PM CDT Subject: Medication Management Due: 2025 9:47:17 AM CDT On Hold Pending Signature Drug: hydroCHLOROthiazide (hydroCHLOROthiazide 25 mg oral tablet), TAKE 1 TABLET BY MOUTH DAILY Quantity: 90 tab(s) Days Supply: 90 Refills: 3 Substitutions Allowed Notes from Pharmacy: - First Attempt Ref: [id number] Dispensed Drug: hydroCHLOROthiazide (hydroCHLOROthiazide 25 mg oral tablet), TAKE 1 TABLET BY MOUTHDAILY Quantity: 90 tab(s) Days Supply: 90 Refills: 3 Substitutions Allowed Notes from Pharmacy: Please send a replace/new response with 90-Day Supply if appropriate to maximize member benefit. Requesting 1 year supply. [facility] [id number] NoteSpoke with patient regarding pre-LAAO imaging. She notes she has a significant gag reflex. Offered DIAMOND with general anesthesia vs chest CTA. She opted for the DIAMOND with GA. Today she informed me that she would prefer to do the chest CTA. Orders placed. Will schedule procedure after chest CTA images are reviewed. Informed her of the steroid/benadryl protocol given her hx of IV contrast allergy. She states understanding. Misty Sommers APRN-[facility] Cardiovascular MedicineSumma Health05-14-2025 Note Spoke with patient, she prefers DIAMOND with general anesthesia. New order placed. [facility]05-12-2025 NoteUT Cardiology - [facility] Subjective Moustapha Alejandra is a 79 y.o. year old female patient being seen for 6 mo follow up and to get watchman placed. Patient states she feel pretty good. Patient complains of fatigue and leg swelling. Patient denies SOB, palpitations, or dizziness. Patient Active Problem List Diagnosis Abnormal chest x-ray Acute CVA (cerebrovascular accident) (CMS/HCC) Anxiety Arthritis Asthma Basal cell carcinoma Benign positional vertigo Chronic sinusitis Depression Dysphagia, oropharyngeal Expressive aphasia Family history of cardiac disorder Fuchs' endothelial corneal dystrophy type 1 Glaucoma Hernia, hiatal History of cerebrovascular accident History of colon polyps History of fracture of right hip History of sciatica Hypertension Medicare annual wellness visit, subsequent Osteoporosis Otitis externa of right ear Posterior auricular lymphadenopathy Sciatica Seasonal allergies Urge incontinence Urinary incontinence Paroxysmal atrial fibrillation (CMS/HCC) Trochanteric bursitis of right hip Family History Problem Relation Name Age of Onset Aortic aneurysm Mother Stroke Maternal Grandmother Social History Tobacco Use Smoking status: Never Smokeless tobacco: Never Substance Use Topics Alcohol use: Never Drug use: Never HPI Xean is seen in follow up. She was seen on 06/18/2024 as a new patient. She is a 79-year-old woman with prior history of hypertension who on 12/21/2023 she developed aphasia and was admitted to [facility] with stroke and was given thrombolytic. There was an acute ischemic stroke, left frontal lobe approximating Broca's area. She has recovered good speech function and is currently in speech therapy. She has been having recurrent falls. In July 2023 she fell and broke her arm. In January of 2024 she fell and broke her hip. She underwent a hip replacement surgery. She uses a cane to assist with ambulation. She recently underwent an event monitor and I reviewed it and I think it shows episodes of atrial fibrillation. After visit on 06/18/2024 I referred her for loop recorder placement to monitor for recurrence of atrial fibrillation and to assess the burden to guide therapy. So far the loop recorder has not picked up any atrial fibrillation. After last visit I started her on losartan to better control blood pressure but she did not feel well on it. I changed it to lisinopril and she did not feel on it either. Today she reports that she has been doing well. Her blood pressure is mildly elevated today but she reports usually her blood pressure is better. She denies chest pain and shortness of breath. No palpitations. Her lower extremity edema has improved. Today she reports that she is interested in proceeding with watchman left atrial appendage occlusion procedure. She has discussed it with her PCP Dr Gruber and they both agreed that it is a good option for her. Review of Systems Constitutional: Positive for malaise/fatigue. Cardiovascular: Positive for leg swelling (improving). Musculoskeletal: Positive for muscle weakness. Neurological: Positive for vertigo. Objective Visit Vitals BP 137/85 (BP Location: Left arm, Patient Position: Sitting) Pulse 74 Ht 1.626 m (5' 4 ) Wt 80.3 kg (177 lb) SpO2 99% BMI 30.38 kg/m??? Smoking Status Never BSA 1.9 m??? Physical Exam Constitutional: Appearance: She is well-developed. She is not ill-appearing. HENT: Head: Normocephalic and atraumatic. Nose: Nose normal. Eyes: General: No scleral icterus. Pupils: Pupils are equal, round, and reactive to light. Neck: Thyroid: No thyromegaly. Vascular: No JVD. Cardiovascular: Rate and Rhythm: Normal rate and regular rhythm. Pulses: Radial pulses are 2+ on the right side and 2+ on the left side. Heart sounds: Normal heart sounds. No murmur heard. No friction rub. No gallop. Pulmonary: Effort: Pulmonary effort is normal. No respiratory distress. Breath sounds: Normal breath sounds. No wheezing or rales. Chest: Chest wall: No tenderness. Abdominal: General: Bowel sounds are normal. There is no distension. Palpations: Abdomen is soft. Tenderness: There is no abdominal tenderness. Musculoskeletal: General: No swelling. Cervical back: Neck supple. Right lower le+ Pitting Edema present. Left lower le+ Pitting Edema present. Comments: Uses a cane to assist with ambulation. Skin: General: Skin is warm and dry. Neurological: General: No focal deficit present. Mental Status: She is alert and oriented to person, place, and time. Psychiatric: Mood and Affect: Mood normal. Behavior: Behavior is cooperative. Judgment: Judgment normal. Allergies Allergies Allergen Reactions Iodine Unknown Losartan Other Meperidine Unknown Other Reaction(s): Dyspnea Iodinated Contrast Media Hives and Rash Other Reac (more content not included)...[facility] 11-05-2024 NoteEntered by Amy Villaseñor on November 05, 2024 07:41:09 EST From: Amy Villaseñor To: [facility] Sent: 11/05/2024 07:41:09 EST Subject: Medication Management Submitted: Complete:DULoxetine (DULoxetine 60 mg oral delayed release capsule) Signed by Amy Villaseñor 11/05/2024 07:41:00 EST Approved with modifications: DULoxetine (DULoxetine HCl 60 MG Oral Capsule Delayed Release Particles) TAKE 1 CAPSULE BY MOUTH DAILY Qty: 90 cap(s) Days Supply: 90 Refills: 3 Substitutions Allowed Route To Pharmacy - [facility] Note from Pharmacy: Please send a replace/new response with 90-Day Supply if appropriate to maximize member benefit. Requesting 1 year supply. Signed by Amy Villaseñor From: [facility] To: Hannah Gruber MD Sent: November 04, 2024 9:11:46 PM METER SETTER Subject: Medication Management Due: November 05, 2024 12:02:20 AM METER SETTER On Hold Pending Signature Drug: DULoxetine (DULoxetine 60 mg oral delayed release capsule), TAKE 1 CAPSULE BY MOUTH DAILY Quantity: 90 cap(s) Days Supply: 90 Refills: 3 Substitutions Allowed Notes from Pharmacy: - First Attempt Ref: [id number] Dispensed Drug: DULoxetine (DULoxetine 60 mg oral delayed release capsule), TAKE 1 CAPSULE BY MOUTHDAILY Quantity: 90 cap(s) Days Supply: 90 Refills: 3 Substitutions Allowed Notes from Pharmacy: Please send a replace/new response with 90-Day Supply if appropriate to maximize member benefit. Requesting 1 year supply. [facility] [id number] NoteUT Cardiology - [facility] Subjective Moustapha Alejandra is a 79 y.o. year old female patient being seen for 2 mo follow up s/p loop recorder insertion with Dr. Awan. She denies chest pain and SOB. No bleeding on Eliquis. Denies palpitations. Patient Active Problem List Diagnosis Abnormal chest x-ray Acute CVA (cerebrovascular accident) (CMS/HCC) Anxiety Arthritis Asthma Basal cell carcinoma Benign positional vertigo Chronic sinusitis Depression Dysphagia, oropharyngeal Expressive aphasia Family history of cardiac disorder Fuchs' endothelial corneal dystrophy type 1 Glaucoma Hernia, hiatal History of cerebrovascular accident History of colon polyps History of fracture of right hip History of sciatica Hypertension Medicare annual wellness visit, subsequent Osteoporosis Otitis externa of right ear Posterior auricular lymphadenopathy Sciatica Seasonal allergies Urge incontinence Urinary incontinence Paroxysmal atrial fibrillation (CMS/HCC) Trochanteric bursitis of right hip Family History Problem Relation Name Age of Onset Aortic aneurysm Mother Stroke Maternal Grandmother Social History Tobacco Use Smoking status: Never Smokeless tobacco: Never Substance Use Topics Alcohol use: Never HPI Xena is seen in follow up. She was seen on 06/18/2024 as a new patient. She is a 79-year-old woman with prior history of hypertension who on 12/21/2023 she developed aphasia and was admitted to [facility] with stroke and was given thrombolytic. There was an acute ischemic stroke, left frontal lobe approximating Broca's area. She has recovered good speech function and is currently in speech therapy. She has been having recurrent falls. In July 2023 she fell and broke her arm. In January of 2024 she fell and broke her hip. She underwent a hip replacement surgery. She uses a cane to assist with ambulation. She recently underwent an event monitor and I reviewed it and I think it shows episodes of atrial fibrillation. After last visit on 06/18/2024 I referred her for loop recorder placement to monitor for recurrence of atrial fibrillation and to assess the burden to guide therapy. So far the loop recorder has not picked up any atrial fibrillation. Today she reports that she has been doing well. Her blood pressure is elevated today but she reports usually her blood pressure is better. She denies chest pain and shortness of breath. No palpitations. Her lower extremity edema has improved. Review of Systems Cardiovascular: Positive for leg swelling (improving). Musculoskeletal: Positive for muscle weakness. Neurological: Positive for vertigo. Objective Visit Vitals BP 148/82 (BP Location: Right arm, Patient Position: Sitting) Pulse 69 Ht 1.626 m (5' 4 ) Wt 79.4 kg (175 lb) SpO2 99% BMI 30.04 kg/m??? Smoking Status Never BSA 1.89 m??? Physical Exam Constitutional: Appearance: She is well-developed. She is not ill-appearing. HENT: Head: Normocephalic and atraumatic. Nose: Nose normal. Eyes: General: No scleral icterus. Pupils: Pupils are equal, round, and reactive to light. Neck: Thyroid: No thyromegaly. Vascular: No JVD. Cardiovascular: Rate and Rhythm: Normal rate and regular rhythm. Pulses: Radial pulses are 2+ on the right side and 2+ on the left side. Heart sounds: Normal heart sounds. No murmur heard. No friction rub. No gallop. Pulmonary: Effort: Pulmonary effort is normal. No respiratory distress. Breath sounds: Normal breath sounds. No wheezing or rales. Chest: Chest wall: No tenderness. Abdominal: General: Bowel sounds are normal. There is no distension. Palpations: Abdomen is soft. Tenderness: There is no abdominal tenderness. Musculoskeletal: General: No swelling. Cervical back: Neck supple. Right lower le+ Pitting Edema present. Left lower le+ Pitting Edema present. Comments: Uses a cane to assist with ambulation. Skin: General: Skin is warm and dry. Neurological: General: No focal deficit present. Mental Status: She is alert and oriented to person, place, and time. Psychiatric: Mood and Affect: Mood normal. Behavior: Behavior is cooperative. Judgment: Judgment normal. Allergies Allergies Allergen Reactions Iodine Unknown Meperidine Unknown Other Reaction(s): Dyspnea Iodinated Contrast Media Hives and Rash Other Reaction(s): respiratory distress Neomycin Rash, Swelling and Unknown Medications Current Outpatient Medications: amLODIPine (Norvasc) 10 mg tablet, Take 10 mg by mouth in the morning., Disp: , Rfl: apixaban (Eliquis) 5 mg tablet, TAKE 1 TABLET BY MOUTH 2 TIMES A DAY, Disp: 60 tablet, Rfl: 11 atorvastatin (Lipitor) 40 mg tablet, Take 40 mg by mouth in the morning., Disp: , Rfl: Cymbalta [address] capsule, Take 60 mg by mouth in the morning., Disp: , Rfl: fexofenadine (Graciela) 180 mg tablet, Cricket (more content not included)... [facility]10-18-2024 NoteLOOP IMPLANT PROCEDURE NOTE DATE OF PROCEDURE: 07/09/24 PERFORMING PHYSICIAN: Dr. Zackery Awan LAP HAND TOOL: INDICATIONS FOR PROCEDURE: Cryptogenic stroke CONSENT: Patient LOCATION: EP lab PROCEDURAL SEDATION: None FLUOROSCOPY TIME: 0min PREPARATION: Preoperative antibiotics was administered. EBL:0cc PROCEDURES PERFORMED: 1. LOOP implant PROCEDURE NOTE: Patient was brought to the EP lab in the post absorptive state. A procedural pause was performed verifying the patient, the procedure. Sterile prep and drape were performed over the left precordium and anesthesia with 1% lidocaine was followed by a small incision was made in the 3rd intercostal space near the sternum on the left using the DigePrint tool. The loop recorder was then injected subcutaneously and noted to have good sensing parameters. Technical details of the device as noted below. The skin was then closed with 3-0 absorbable monofilament suture and glue applied to hold the edges together. Tegaderm was applied to cover the wound. The patient appeared to tolerate the procedure well and was returned to the room in stable condition. No complications were immediately observed. IMPRESSION: Successful placement of LOOP implant with excellent sensing parameters. COMPLICATIONS: None RECOMMENDATIONS: 1. Occlusive dressing to be changed after 7 days. 2. Do not wet the incision. Zackery Awan MD Cardiac Electrophysiology.[facility]10-18-2024 Note Patient: Moustapha Alejandra Procedure Information Date/Time: 07/09/24 1030 Procedure: Loop insertion - PC APPROVED Location: [facility] DIRECTOR RISK 1 EP / [facility] (Cath) Providers: Zackery Awan MD Clinical information reviewed: Tobacco Allergies Meds Med Hx Surg Hx Fam Hx Physical Exam Airway Mallampati: I Cardiovascular - normal exam Dental - normal exam Pulmonary - normal exam Abdominal - normal exam Anesthesia Plan ASA 1 The patient is not a current smoker. Patient was not previously instructed to abstain from smoking on day of procedure. Patient did not smoke on day of procedure. Education provided regarding risk of obstructive sleep apnea. Anesthetic plan and risks discussed with patient. Use of blood products discussed with patient who. Additional Equipment RequestsSumma Health09-27-2024 Note [place] [facility] Subjective Moustapha Alejandra is a 79 y.o. year old female patient being seen to [facility] care. She had CVA about 6 months ago and was treated at [facility] [place]. She says no one can figure out why she had a stroke. She just wore 30 day event monitor for neurology. Denies cardiac symptoms like chest pain, SOB, and palpitations. Patient Active Problem List Diagnosis Abnormal chest x-ray Acute CVA (cerebrovascular accident) ([facility]) Anxiety Arthritis Asthma Basal cell carcinoma Benign positional vertigo Chronic sinusitis Depression Dysphagia, oropharyngeal Expressive aphasia Family history of cardiac disorder Fuchs' endothelial corneal dystrophy type 1 Glaucoma Hernia, hiatal History of cerebrovascular accident History of colon polyps History of fracture of right hip History of sciatica Hypertension Medicare annual wellness visit, subsequent Osteoporosis Otitis externa of right ear Posterior auricular lymphadenopathy Sciatica Seasonal allergies Urge incontinence Urinary incontinence Family History Problem Relation Name Age of Onset Aortic aneurysm Mother Stroke Maternal Grandmother Social History Tobacco Use Smoking status: Never Smokeless tobacco: Never Substance Use Topics Alcohol use: Never HPI Jose is seen as a new patient. She is a 79-year-old woman with prior history of hypertension who on 12/21/2023 she developed aphasia and was admitted to [facility] with stroke and was given thrombolytic. There was an acute ischemic stroke, left frontal lobe approximating Broca's area. She has recovered good speech function and is currently in speech therapy. She has been having recurrent falls. In July 2023 she fell and broke her arm. In January of 2024 she fell and broke her hip. She underwent a hip replacement surgery. She uses a cane to assist with ambulation. She recently underwent an event monitor and I reviewed it and I think it shows episodes of atrial fibrillation. She denies chest pain and shortness of breath. She has bilateral lower extremity edema. No palpitations. Review of Systems Cardiovascular: Positive for leg swelling. Musculoskeletal: Positive for muscle weakness. Neurological: Positive for vertigo. Objective Visit Vitals BP 124/80 (BP Location: Left arm, Patient Position: Sitting) Pulse 81 Ht 1.626 m (5' 4 ) Wt 78.5 kg (173 lb) SpO2 99% BMI 29.70 kg/m??? Smoking Status Never BSA 1.88 m??? Physical Exam Constitutional: Appearance: She is well-developed. She is not ill-appearing. HENT: Head: Normocephalic and atraumatic. Nose: Nose normal. Eyes: General: No scleral icterus. Pupils: Pupils are equal, round, and reactive to light. Neck: Thyroid: No thyromegaly. Vascular: No JVD. Cardiovascular: Rate and Rhythm: Normal rate and regular rhythm. Pulses: Radial pulses are 2+ on the right side and 2+ on the left side. Heart sounds: Normal heart sounds. No murmur heard. No friction rub. No gallop. Pulmonary: Effort: Pulmonary effort is normal. No respiratory distress. Breath sounds: Normal breath sounds. No wheezing or rales. Chest: Chest wall: No tenderness. Abdominal: General: Bowel sounds are normal. There is no distension. Palpations: Abdomen is soft. Tenderness: There is no abdominal tenderness. Musculoskeletal: General: No swelling. Cervical back: Neck supple. Right lower le+ Pitting Edema present. Left lower le+ Pitting Edema present. Comments: Uses a cane to assist with ambulation. Skin: General: Skin is warm and dry. Neurological: General: No focal deficit present. Mental Status: She is alert and oriented to person, place, and time. Psychiatric: Mood and Affect: Mood normal. Behavior: Behavior is cooperative. Judgment: Judgment normal. Allergies Allergies Allergen Reactions Iodine Unknown Meperidine Unknown Other Reaction(s): Dyspnea Iodinated Contrast Media Hives and Rash Other Reaction(s): respiratory distress Neomycin Rash, Swelling and Unknown Medications Current Outpatient Medications: amLODIPine (Norvasc) 10 mg tablet, Take 10 mg by mouth in the morning., Disp: , Rfl: atorvastatin (Lipitor) 40 mg tablet, 40 mg., Disp: , Rfl: Cymbalta [address] capsule, 1 capsule 1 (one) time each day at the same time., Disp: , Rfl: fexofenadine (Graciela) 180 mg tablet, Take 1 tablet by mouth in the morning., Disp: , Rfl: hydroCHLOROthiazide (HYDRODiuril) 25 mg tablet, Take 1 tablet by mouth in the morning., Disp: , Rfl: apixaban (Eliquis) 5 mg tablet, Take 1 tablet (5 mg) by mouth two times daily., Disp: 180 tablet, Rfl: 3 Recent Labs Blood testing 12/21/2023: Hb 14.7, platelets 212. BUN 28, Cr 1.13. K 3.6, TG Lipids 12/22/2023: Chol 204, HDL 75, TG 140, LDL 101. Imaging and other tests Event monitor 05/07/2024 - 06/06/2024: Sinus rhythm with episodes of po (more content not included)...[facility]05-22-2024 Discharge summary Author Avtar Barbosa [facility] February 11, 2024 3:12pm Note Date/Time February 11, 2024 1:38p m [facility] [address] [place] [address] Discharge Summary Signed Patient: Moustapha Alejandra MR#: [id number] : 1945 Acct:[id number] Age/Sex: 78 / F Adm Date: 4 Loc: Room: [address] [place] [address]: Avtar Barbosa MD Copies to: MD Loulou Mooney, LIVAN Gruber MD~ Providers Date of Discharge: 02/11/24 Discharging Provider: Loulou Newton Primary Care Provider: Hannah Gruber Consults: 01/30/24 15:13 Consult to Adult Hospitalist Routine Comment: Consulting Provider: Community Hospitalist (Adult) Reason For Exam: HTN Has Provider Been Notified: Yes Date of Notification: 01/30/24 Time of Notification: 15:16 Consult to Dietitian Routine Comment: Reason for Consult: PO Supplement Eval&Order Consult to Occupational Therapy Routine Comment: Physician Instructions: Consult to OT for:: Evaluation and Treat Consult to Physical Therapy Routine Comment: Physician Instructions: Consult to PT for:: Evaluation and Treat Speech Admit Screen Routine Comment: 01/30/24 15:17 Consult to Speech Therapy Routine Comment: Reason for ST Consult: Cognitive Eval & Tx Speech/Language Eval & Tx Bedside Swallow Eval & Tx Diet per ST Recommendations: Yes Contact Physician Before Ordering Diet: No Modified Barium Swallow Study, If Recommended: Yes Discharge Diagnosis (1) Hip fracture, right: (2) S/P hip hemiarthroplasty: (3) Postoperative anemia due to acute blood loss: (4) Expressive aphasia: (5) Anxiety: (6) HTN (hypertension): Final Diagnosis Final Discharge Diagnosis: As above Summary Hospital Course Hospital course: Ms. Alejandra is a 78 year old female was discharged from the rehabilitation unit after left MCA stroke, in December, who was then admitted on January 29 status post subcapital hip fracture and right hip arthroplasty. She was independent at home after her stroke, she was working with speech therapy in the outpatient setting, she reports a slip and fall in the kitchen while cleaning up after dinner. Imaging demonstrated right subcapital hip fracture and she underwent operative intervention with Dr. Serra on January 28. Her rehab course was mostly unremarkable. She did have some worsening bilaterallower extremity edema and SOB requiring supplemental O2. Chest x-ray with questionable developing pulmonary edema. We did give her a short course of Lasix which improved her symptoms. She was able to be weaned off of oxygen. She did quite well functionally. At discharge she is very functional distances with a rollator and standby assistance. She is independent with transfers and bed mobility. Patient will be discharged back home with outpatient therapy services. No additional DME is required at discharge. Condition Condition at Discharge: Stable Status at Discharge Functional status at discharge: independent ambulation Time Spent with Patient Time spent providing/coordinating discharge services (# min): 35 Specific discharge activities: Total time spent discharging this patient > 30 minutes Greater than 30 minutes spent preparing the patient for discharge including the following: Discussion of the hospital stay with patient and/or family Instructions for continuing care to all relevant caregivers Reviewing discharge plan with medical staff, social work, care management, and nursing staff Supervision of discharge paperwork, medication reconciliation, prescriptions, and outpatient appointments Prescribed necessary DME at discharge when indicated Discharge Plan Discharge Plan Patient Disposition: Home Activity: Ambulate as Tolerated Diet: Regular Additional Instructions: -Code Status: Full Code -Diet: Regular -Activity: Weight bearing as tolerated -Juan Carlos wraps to foot to knees, to help with lower extremity edema during the day and off at night. -Wound Care Right hip: your wound vac was removed today prior to discharge. You should wash your incision daily with gentle soap and water and apply a dry sterile dressing. This should be changed daily and as needed. You will have Outpatient Therapy at [facility] ( ). You have been given prescriptions for new and/or needed medications. These prescriptions are for a one-time fill only, with no re-fills. For further re- fills going forward, you will need to address with your PCP at your follow up appointment, or by calling your PCP?s office prior to the prescriptions running out. NOTE: please call within 24 hours if you need to cancel or change any follow up appointments. Arrive early to all follow up appointments, bring current medication list, photo ID and any insurance card(s) to all future follow ups (listed below). Please remember to wear a mask to all appointments. If you develop any symptoms (cough, fever/chills, shortness of breath, sore throat, nausea/vomiting, etc.) please contact your provider's office to inform them prior to your appointment. Instructions: Wound Incision and Drainage (DC), Know your Meds Prescriptions: New ascorbic acid (vitamin C) [Vitamin C] 500 mg Tablet 500 mg PO DAILY Qty: 30 0RF amlodipine 10 mg Tablet 10 mg PO DAILY 30 Days Qty: 30 0RF aspirin 81 mg Tablet,Delayed Release (Dr/Ec) 81 mg PO DAILY Qty: 30 0RF atorvastatin 40 mg Tablet 40 mg PO QPM 30 Days Qty: 30 0RF calcium carbonate-vitamin D3 [Oyster Shell Calcium-Vit D3] 500 mg-5 mcg (200 unit) Tablet 1 tab PO TID.WITH.MEALS Qty: 30 0RF duloxetine 60 mg Capsule,Delayed Release(Dr/Ec) 60 mg PO DAILY 30 Days Qty: 30 0RF ferrous sulfate 324 mg (65 mg iron) Tablet,Delayed Release (Dr/Ec) 324 mg PO Q48H 30 Days Qty: 15 0RF latanoprost 0.005 % Drops 1 drp Eye-Both HS 30 Days Qty: 1 0RF hydrochlorothiazide 25 mg Tablet 25 mg PO DAILY 30 Days Qty: 30 0RF fluticasone propionate 50 mcg/actuation [place],Suspension 2 spray intranasal DAILY PRN (Reason: allergy symptoms) Qty: 16 0RF loratadine 10 mg Tablet 10 mg PO DAILY Qty: 30 0RF multivitamin with folic acid [Thera] 400 mcg Tablet 1 tab PO DAILY Qty: 30 0RF acetaminophen 500 mg Tablet 1,000 mg PO TID Qty: 90 0RF nystatin [Nystop] 100,000 unit/gram Powder 1 applic topical BID 14 Days Qty: 1 0RF sennosides [Senna Laxative] 8.6 mg Tablet 8.6 mg PO DAILY@12 PRN (Reason: If no BM in 2 days) Qty: 30 0RF Discontinued hydrocodone-acetaminophen 5-325 mg Tablet 1 tab PO Q4H PRN (Reason: Pain) Qty: 0 0RF ascorbic acid (vitamin C) [Vitamin C] 500 mg Tablet 500 mg PO DAILY Qty: 0 0RF enoxaparin [Lovenox] 30 mg/0.3 mL Syringe 30 mg subcut BID@1000,2200 Qty: 0 0RF calcium carbonate-vitamin D3 [Oyster Shell Calcium-Vit D3] 500 mg-5 mcg (200 unit) Tablet 1 tab PO TID.WITH.MEALS Qty: 0 0RF ferrous sulfate 324 mg (65 mg iron) Tablet,Delayed Release (Dr/Ec) 324 mg PO BID Qty: 0 0RF amlodipine 5 mg Tablet 5 mg PO DAILY 30 Days Qty: 30 0RF aspirin 81 mg Tablet,Delayed Release (Dr/Ec) 81 mg PO DAILY Qty: 30 0RF atorvastatin 40 mg Tablet 40 mg PO QPM 30 Days Qty: 30 0RF loratadine 10 mg Tablet 10 mg PO DAILY Qty: 30 0RF duloxetine 60 mg Capsule,Delayed Release(Dr/Ec) 60 mg PO DAILY 30 Days Qty: 30 0RF latanoprost 0.005 % Drops 1 drp Eye-Both DAILY 30 Days Qty: 1 0RF hydrochlorothiazide 25 mg Tablet 25 mg PO DAILY 30 Days Qty: 30 0RF fluticasone propionate 50 mcg/actuation [place],Suspension 2 spray intranasal DAILY PRN (Reason: allergy symptoms) 30 Days Qty: 1 0RF multivitamin with folic acid [Thera] 400 mcg Tablet 1 tab PO DAILY Qty: 30 0RF nystatin [Nystop] 100,000 unit/gram Powder 1 applic topical BID Qty: 15 0RF Follow Up: Hannah Gruber MD [Primary Care Provider] - 02/23/24 1:15 pm () Rosemary Serra MD [Active Staff] - (surgery was on 01/28. Wound vac removed on02/10. Please call to schedule appt) Avtar Barbosa MD [Active Staff] - (Follow up with rehab physician as needed) Exam Physical Exam Vital Signs: Temp Pulse Resp BP Pulse Ox O2 Del Method O2 Flow Rate 98.1 F 95 16 131/82 97 Room Air 1 02/11/24 10:02/11/24 10:02/11/24 10:02/11/24 10:02/11/24 10:02/11/24 10:02/03/24 08:00 Narrative: General: Awake, alert, oriented x3 HENT: Normal to inspection, normocephalic, atraumatic Eyes: PERRL, normal conjunctiva and sclera Neck: Normal ROM, normal visual inspection. Trachea midline. Cardio: Regular heart rate and rhythm Respiratory: Clear to auscultation bilaterally. Normal respiratory effort. No respiratory distress. GI: Abdomen soft, nontender, nondistended, active bowel sounds x4 quadrants Neuro: CN II-XII intact. Strength 5/5, equal bilaterally Extremities: No edema, erythema, cyanosis Psych: Mood and affect appropriate. Expressive aphasia. <Statement entered by Avtar Barbosa MD - 02/11/24 15:12> I reviewed the history and the relevant portions of the chart, including currentorders, allied health and mental health consultant notes, labs/imaging and plan of care as above. Documented By: Loulou Newton APRN 02/11/24 1 330 Signed By: <Electronically signed by LIVAN Newton> 02/11/24 1868 <Electronically signed by Avtar Barbosa MD> 02/11/24 [address] [facility] Work Phone: 1(757) 121-249905-22-2024 Progress note Author Avtar Barbosa [facility] February 11, 2024 12:04pm Note Date/Time February 10, 2024 11:50 am [facility] [address] [place] [address] Physiatry(Rehab) Progress Note Signed Patient: Moustapha Alejandra MR#: [id number] : 1945 Acct:[id number] Age/Sex: 78 / F Adm Date: 4 Loc: Room: 7T0406-9 Type: ADM IN Attending Dr: Avtar Barbosa MD Copies to: ~ <Loulou Newton APRN - Last Filed: 02/10/24 11:50> Date of Service: 02/10/2024 Subjective <Loulou Newton APRN - Last Filed: 02/10/24 11:50> Subjective Narrative: Ms. 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 She was independent at home after her stroke, she was working with speech therapy in the outpatient setting, she reports a slip and fall in the kitchen while cleaning up dinner. Imaging demonstrated right subcapital hip fracture and she underwent operative intervention with Dr. Serra on January 28. Today, she stable. Labs reviewed. Cleared by orthopedics, she to admit to rehabilitation unit. Patient agreeable. Interval history: Patient evaluated while sitting in the chair in her room. She is alert, pleasant, oriented. Reports no pain at this time; overall hip discomfort is much improved over the last few days. She has only been taking Tylenol which provides sufficient relief. Her vitals remained stable. She is afebrile. Doing well in therapy. Ambulating household and community distances with rollator and standby assistance. Able to do stairs with CGA. SBA with car transfers. Asking to go home soon Review of Systems <Loulou Newton APRN - Last Filed: 02/10/24 11:50> Review of Systems All other systems reviewed & are negative unless noted below or in HPI Exam <Loulou Newton APRN - Last Filed: 02/10/24 11:50> Physical Exam Vital Signs: Temp Pulse Resp BP Pulse Ox O2 Del Method O2 Flow Rate 97.8 F 84 16 135/78 95 Room Air 1 02/10/24 05:00 02/10/24 05:00 02/10/24 05:00 02/10/24 05:00 02/10/24 05:00 02/10/24 05:00 02/03/24 08:00 Narrative: General: Awake, alert, oriented x3 HENT: Normal to inspection, normocephalic, atraumatic Eyes: PERRL, normal conjunctiva and sclera Neck: Normal ROM, normal visual inspection. Trachea midline. Cardio: Regular heart rate and rhythm Respiratory: Clear to auscultation bilaterally. Normal respiratory effort. No respiratory distress. GI: Abdomen soft, nontender, nondistended, active bowel sounds x4 quadrants Neuro: CN II-XII intact. Strength 5/5, equal bilaterally Extremities: No edema, erythema, cyanosis Psych: Mood and affect appropriate. Expressive aphasia. Objective <Loulou Newton, FAMILY INTERVENTION SPECIALIST - Last Filed: 02/10/24 11:50> Labs 02/05/24 04:45 02/08/24 05:19 Additional Results Results Comments: I reviewed clinical lab tests, radiology reports and obtained and summated medical records and have ordered follow up lab tests and imaging studies as needed for rehabilitation care. Medications and Allergies Allergies and Active Meds: Allergies Iodinated Contrast Media [From Contrast Media] Allergy (Severe, Verified 01/28/24 18:13) Anaphylaxis meperidine [Demerol] Allergy (Unknown, Verified 01/28/24 18:13) Unknown Reaction neomycin Allergy (Unknown, Verified 01/28/24 18:13) Unknown Reaction Active Medications Generic Name Dose Route Start Last Admin Trade Name Freq PRN Reason Stop Dose Admin Acetaminophen 1,000 mg 02/03/24 14:00 02/10/24 08:26 Acetaminophen 500 Mg Tablet PO 02/02/25 13:59 1,000 mg TID GENEVIEVE Administration Al Hydrox/Mg Hydrox/Simethicone 30 ml 01/30/24 15:13 Mag Hydrox/Al Hydrox/Simeth 30 Ml Udc PO 01/29/25 15:12 Q4H PRN Indigestion Amlodipine Besylate 10 mg 02/06/24 09:00 02/10/24 08:27 Amlodipine 10 Mg Tablet PO 02/05/25 08:59 10 mg DAILY GENEVIEVE Administration Ascorbic Acid 500 mg 01/31/24 09:00 02/10/24 08:26 Ascorbic Acid 500 Mg Tablet PO 01/30/25 08:59 500 mg DAILY GENEVIEVE Administration Aspirin 81 mg 01/31/24 09:00 02/10/24 08:27 Aspirin 81 Mg Tablet. PO 01/30/25 08:59 81 mg DAILY GENEVIEVE Administration Atorvastatin Calcium 40 mg 01/30/24 21:00 02/09/24 20:46 Atorvastatin 40 Mg Tablet PO 01/29/25 20:59 40 mg QPM GENEVIEVE Administration Bisacodyl 10 mg 01/30/24 15:13 Bisacodyl 10 Mg Supp.Rect OK 01/29/25 15:12 DAILY PRN Constipation Calcium Carbonate 1 tab 01/30/24 17:00 02/10/24 08:26 Calcium Carbonate/Vitamin D3 500 Mg/200 Unit Tablet PO 01/29/25 16:59 1 tab TID.WITH.MEALS GENEVIEVE Administration Docusate Sodium 100 mg 01/30/24 15:13 02/08/24 08:20 Docusate 100 Mg Capsule PO 01/29/25 15:12 100 mg BID PRN Administration Constipation Docusate Sodium 283 mg 01/30/24 15:13 Docusate Enema 283 Mg/5 Ml Enema OK 01/29/25 15:12 DAILY PRN Constipation Duloxetine HCl 60 mg 01/31/24 09:00 02/10/24 08:26 Duloxetine 60 Mg Capsule. PO 01/30/25 08:59 60 mg DAILY GENEVIEVE Administration Enoxaparin Sodium 30 mg 01/30/24 22:00 02/10/24 08:26 Enoxaparin 30 Mg/0.3 Ml Syringe SUBCUT 01/29/25 21:59 30 mg BID@1000,2200 GENEVIEVE Administration Ferrous Sulfate 324 mg 02/04/24 09:00 02/10/24 08:26 Ferrous Sulfate 324 Mg Tablet. PO 02/03/25 08:59 324 mg Q48H GENEVIEVE Administration Fluticasone Propionate 2 spray 01/30/24 15:11 Fluticasone Propionate Omaha 120 Omaha/16 Gm Bottle INTRANASAL 01/29/25 15:10 DAILY PRN allergy symptoms Hydrochlorothiazide 25 mg 01/31/24 09:00 02/10/24 08:27 Hydrochlorothiazide 25 Mg Tablet PO 01/30/25 08:59 25 mg DAILY GENEVIEVE Administration Lactulose 30 gm 01/30/24 15:13 02/07/24 18:18 Lactulose 20 Gm/30 Ml Udc PO 01/29/25 15:12 30 gm DAILY PRN Administration Constipation Latanoprost 1 drops 01/31/24 22:00 02/09/24 20:46 Latanoprost 0.005% Op Soln 50 Drops/2.5 Ml Bottle EYE-BOTH 01/30/25 21:59 1 drops HS GENEVIEVE Administration Loratadine 10 mg 01/31/24 09:00 02/10/24 08:26 Loratadine 10 Mg Tablet PO 01/30/25 08:59 10 mg DAILY GENEVIEVE Administration Multivitamins 1 tab 01/31/24 09:00 02/10/24 08:27 Multivitamin 1 Tab Tablet PO 01/30/25 08:59 1 tab DAILY GENEVIEVE Administration Nystatin 1 applic 01/30/24 21:00 02/10/24 08:27 Nystatin 100,000 Unit/Gram Powder 15 Gm Bottle TOPICAL 01/29/25 20:59 Not Given BID GENEVIEVE Ondansetron HCl 4 mg 02/05/24 11:55 02/05/24 12:28 Ondansetron Odt 4 Mg Tab.Rapdis PO 02/04/25 11:54 4 mg Q8HR PRN Administration Nausea And Vomiting Oxycodone HCl 5 mg 01/31/24 12:42 02/09/24 20:46 Oxycodone Ir 5 Mg Tablet PO 5 mg Q4H PRN Administration Pain Scale 4 - 7 Oxycodone HCl 10 mg 01/31/24 12:42 02/10/24 05:53 Oxycodone Ir 5 Mg Tablet PO 10 mg Q4H PRN Administration Pain Scale 7 - 10 Sennosides 2 tab 01/31/24 12:00 02/08/24 08:20 Sennosides 8.6 Mg Tablet PO 01/30/25 11:59 2 tab DAILY@12 PRN Administration If no BM in 2 days Sodium Chloride 0 ml 01/30/24 15:13 Sodium Chloride 0.9 % 10 Ml Syringe IV-PUSH 01/29/25 15:12 PRN PRN Flush Assessment/Plan <Loulou Newton, FAMILY INTERVENTION SPECIALIST - Last Filed: 02/10/24 11:50> Assessment/Plan (1) Hip fracture, right: (2) S/P hip hemiarthroplasty: (3) Postoperative anemia due to acute blood loss: (4) Expressive aphasia: (5) Anxiety: (6) HTN (hypertension): Plan Ms. 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 -No acute events or concerns. Clinically stable. Vitals within normal limits. -Continues to progress well in therapy. Ambulating functional distances with a rollator. Wants to go home tomorrow. Hospitalist to assist with management of comorbid medical conditions Pain control: Limit opioids. Encourage tylenol ice and topical modalities Bowel and bladder: Bowel regimen in place. Monitor for bladder retention. Skin: Monitor operative site; no pressure ulcers on admssion Sleep: Optimize sleep wake cycle DVT prophylaxis: Lovenox during admission. Xarelto v. ASA 81 BID at discharge from IRF. Functional status: Impaired. Still needs [employer]. Will order. Discharge planning: Home in 2 weeks. I spent 18 minutes for services, including [id number] encounter with the patient, discussion of the case, plan of care, and exam; and [id number] activities, such as reviewing pertinent mental health consultant documentation, recent therapy notes, laboratory and radiology studies, and discussion of case with care team including physician, nursing, case work aide, and therapists. More than 50 % of time was spent on patient/family counseling or coordination of care. <Avtar Barbosa MD - Last Filed: 02/11/24 12:04> Assessment/Plan (1) Hip fracture, right: (2) S/P hip hemiarthroplasty: (3) Postoperative anemia due to acute blood loss: (4) Expressive aphasia: (5) Anxiety: (6) HTN (hypertension): Plan Ms. 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 -No acute events or concerns. Clinically stable. Vitals within normal limits. -Continues to progress well in therapy. Ambulating functional distances with a rollator. Wants to go home tomorrow. Hospitalist to assist with management of comorbid medical conditions Pain control: Limit opioids. Encourage tylenol ice and topical modalities Bowel and bladder: Bowel regimen in place. Monitor for bladder retention. Skin: Monitor operative site; no pressure ulcers on admssion Sleep: Optimize sleep wake cycle DVT prophylaxis: Lovenox during admission. Xarelto v. ASA 81 BID at discharge from IRF. Functional status: Impaired. Still needs [employer]. Will order. Discharge planning: Home in 2 weeks. I spent 18 minutes for services, including [id number] encounter with the patient, discussion of the case, plan of care, and exam; and [id number] activities, such as reviewing pertinent mental health consultant documentation, recent therapy notes, laboratory and radiology studies, and discussion of case with care team including physician, nursing, case work aide, and therapists. More than 50 % of time was spent on patient/family counseling or coordination of care. Patient was personally seen by me, Dr. Barbosa, on the day of encounter, reviewed the history and the relevant portions of the chart, including current orders, allied health and mental health consultant notes, labs/imaging and performed bourgeois elements of exam and I formulated the plan of care and facilitated the medical decision making. I completed a substantive portion of this encounter, the medical decision making portion of this note in its entirety, including Allied health note review, nursing note review, mental health consultant note review, discussion with nursing and case management, and more than 50% of my time was spent on counseling and coordination of care, time spent 30 minutes Case reviewed at weekly team conference, discussed progress and goals of care, barriers/problems to date and discharge planning. Agree with above. Patient doing well today. DC tomorrow. OK to remove wound vac prior on Friday per orthopedic surgery. Documented By: Loulou Newton APRN 02/10/24 1 142 Signed By: <Electronically signed by LIVAN Newton> 02/10/24 1150 <Electronically signed by Avtar Barbosa MD> 02/11/24 [address] [facility] Work Phone: 1(793) 725-904105-21-2024 Progress note Author Avtar Barbosa [facility] February 09, 2024 10:30pm Note Date/Time February 09, 2024 1:51p m [facility] [address] [place] [address] Physiatry(Rehab) Progress Note Signed Patient: Moustapha Alejandra MR#: [id number] : 1945 Acct:[id number] Age/Sex: 78 / F Adm Date: 4 Loc: Room: 4N1284-1 Type: ADM IN Attending Dr: Avtar Barbosa MD Copies to: ~ Date of Service: 02/09/2024 Subjective Subjective Narrative: Ms. 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 She was independent at home after her stroke, she was working with speech therapy in the outpatient setting, she reports a slip and fall in the kitchen while cleaning up dinner. Imaging demonstrated right subcapital hip fracture and she underwent operative intervention with Dr. Serra on January 28. Today, she stable. Labs reviewed. Cleared by orthopedics, she to admit to rehabilitation unit. Patient agreeable. Interval history: Patient seen and evaluated today while working with therapy. She appears in no distress. She denies concerns. From a functional standpoint she is improving.Sheis ambulatory 400' SBA and supervision/Mod I for multiple other mobility relatedtasks. Review of Systems Review of Systems All other systems reviewed & are negative unless noted below or in HPI Exam Physical Exam Vital Signs: Temp Pulse Resp BP Pulse Ox O2 Del Method O2 Flow Rate 97.7 F 76 16 146/73 H 92 L Room Air 1 02/09/24 06:00 02/09/24 06:00 02/09/24 06:00 02/09/24 06:00 02/09/24 06:00 02/09/24 06:00 02/03/24 08:00 Narrative: Gen: Awake, oriented, cooperative. HEENT: Atraumatic, PERRL, EOMI Resp: No respiratory distress Cardio: Extremities well perfused MSK: Moves all extremities spontaneously Neuro: CN grossly intact Skin: No swelling, erythema, ecchymosis appreciated. Hip incision with wound vac. No erythema, swelling. Psych: Mood and affect normal Objective Labs 02/05/24 04:45 02/08/24 05:19 Medications and Allergies Allergies and Active Meds: Allergies Iodinated Contrast Media [From Contrast Media] Allergy (Severe, Verified 01/28/24 18:13) Anaphylaxis meperidine [Demerol] Allergy (Unknown, Verified 01/28/24 18:13) Unknown Reaction neomycin Allergy (Unknown, Verified 01/28/24 18:13) Unknown Reaction Active Medications Generic Name Dose Route Start Last Admin Trade Name Freq PRN Reason Stop Dose Admin Acetaminophen 1,000 mg 02/03/24 14:00 02/09/24 08:59 Acetaminophen 500 Mg Tablet PO 02/02/25 13:59 1,000 mg TID GENEVIEVE Administration Al Hydrox/Mg Hydrox/Simethicone 30 ml 01/30/24 15:13 Mag Hydrox/Al Hydrox/Simeth 30 Ml Udc PO 01/29/25 15:12 Q4H PRN Indigestion Amlodipine Besylate 10 mg 02/06/24 09:00 02/09/24 08:59 Amlodipine 10 Mg Tablet PO 02/05/25 08:59 10 mg DAILY GENEVIEVE Administration Ascorbic Acid 500 mg 01/31/24 09:00 02/09/24 08:59 Ascorbic Acid 500 Mg Tablet PO 01/30/25 08:59 500 mg DAILY GENEVIEVE Administration Aspirin 81 mg 01/31/24 09:00 02/09/24 09:00 Aspirin 81 Mg Tablet. PO 01/30/25 08:59 81 mg DAILY GENEIVEVE Administration Atorvastatin Calcium 40 mg 01/30/24 21:00 02/08/24 21:49 Atorvastatin 40 Mg Tablet PO 01/29/25 20:59 40 mg QPM GENEVIEVE Administration Bisacodyl 10 mg 01/30/24 15:13 Bisacodyl 10 Mg Supp.Rect OK 01/29/25 15:12 DAILY PRN Constipation Calcium Carbonate 1 tab 01/30/24 17:00 02/09/24 12:59 Calcium Carbonate/Vitamin D3 500 Mg/200 Unit Tablet PO 01/29/25 16:59 1 tab TID.WITH.MEALS GENEVIEVE Administration Docusate Sodium 100 mg 01/30/24 15:13 02/08/24 08:20 Docusate 100 Mg Capsule PO 01/29/25 15:12 100 mg BID PRN Administration Constipation Docusate Sodium 283 mg 01/30/24 15:13 Docusate Enema 283 Mg/5 Ml Enema OK 01/29/25 15:12 DAILY PRN Constipation Duloxetine HCl 60 mg 01/31/24 09:00 02/09/24 08:59 Duloxetine 60 Mg Capsule. PO 01/30/25 08:59 60 mg DAILY GENEVIEVE Administration Enoxaparin Sodium 30 mg 01/30/24 22:00 02/09/24 09:03 Enoxaparin 30 Mg/0.3 Ml Syringe SUBCUT 01/29/25 21:59 30 mg BID@1000,2200 GENEVIEVE Administration Ferrous Sulfate 324 mg 02/04/24 09:00 02/08/24 08:19 Ferrous Sulfate 324 Mg Tablet.Dr PO 02/03/25 08:59 324 mg Q48H GENEVIEVE Administration Fluticasone Propionate 2 spray 01/30/24 15:11 Fluticasone Propionate Omaha 120 Omaha/16 Gm Bottle INTRANASAL 01/29/25 15:10 DAILY PRN allergy symptoms Hydrochlorothiazide 25 mg 01/31/24 09:00 02/09/24 08:59 Hydrochlorothiazide 25 Mg Tablet PO 01/30/25 08:59 25 mg DAILY GENEVIEVE Administration Lactulose 30 gm 01/30/24 15:13 02/07/24 18:18 Lactulose 20 Gm/30 Ml Udc PO 01/29/25 15:12 30 gm DAILY PRN Administration Constipation Latanoprost 1 drops 01/31/24 22:00 02/08/24 21:50 Latanoprost 0.005% Op Soln 50 Drops/2.5 Ml Bottle EYE-BOTH 01/30/25 21:59 1 drops HS GENEVIEVE Administration Loratadine 10 mg 01/31/24 09:00 02/09/24 09:00 Loratadine 10 Mg Tablet PO 01/30/25 08:59 10 mg DAILY GENEVIEVE Administration Multivitamins 1 tab 01/31/24 09:00 02/09/24 08:59 Multivitamin 1 Tab Tablet PO 01/30/25 08:59 1 tab DAILY GENEVIEVE Administration Nystatin 1 applic 01/30/24 21:00 02/09/24 12:17 Nystatin 100,000 Unit/Gram Powder 15 Gm Bottle TOPICAL 01/29/25 20:59 1 applic BID GENEVIEVE Administration Ondansetron HCl 4 mg 02/05/24 11:55 02/05/24 12:28 Ondansetron Odt 4 Mg Tab.Rapdis PO 02/04/25 11:54 4 mg Q8HR PRN Administration Nausea And Vomiting Oxycodone HCl 5 mg 01/31/24 12:42 02/05/24 21:34 Oxycodone Ir 5 Mg Tablet PO 5 mg Q4H PRN Administration Pain Scale 4 - 7 Oxycodone HCl 10 mg 01/31/24 12:42 02/09/24 00:15 Oxycodone Ir 5 Mg Tablet PO 10 mg Q4H PRN Administration Pain Scale 7 - 10 Sennosides 2 tab 01/31/24 12:00 02/08/24 08:20 Sennosides 8.6 Mg Tablet PO 01/30/25 11:59 2 tab DAILY@12 PRN Administration If no BM in 2 days Sodium Chloride 0 ml 01/30/24 15:13 Sodium Chloride 0.9 % 10 Ml Syringe IV-PUSH 01/29/25 15:12 PRN PRN Flush Assessment/Plan Assessment/Plan (1) Hip fracture, right: (2) S/P hip hemiarthroplasty: (3) Postoperative anemia due to acute blood loss: (4) Expressive aphasia: (5) Anxiety: (6) HTN (hypertension): Plan Ms. 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 -Patient doing very well and progressing with therapy. -Likely DC in the next few days Hospitalist to assist with management of comorbid medical conditions Pain control: Limit opioids. Encourage tylenol ice and topical modalities Bowel and bladder: Bowel regimen in place. Monitor for bladder retention. Skin: Monitor operative site; no pressure ulcers on admssion Sleep: Optimize sleep wake cycle DVT prophylaxis: Lovenox during admission. Xarelto v. ASA 81 BID at discharge from IRF. Functional status: Impaired. Still needs [employer]. Will order. Discharge planning: Home in 2 weeks. I spent 25 minutes for services, including [id number] encounter with the patient, discussion of the case, plan of care, and exam; and [id number] activities, such as reviewing pertinent mental health consultant documentation, recent therapy notes, laboratory and radiology studies, and discussion of case with care team including physician, nursing, case work aide, and therapists. More than 50 % of time was spent on patient/family counseling or coordination of care. Documented By: Avtar Barbosa MD [id number] Signed By: <Electronically signed by Avtar Barbosa MD> 02/09/24 1203 [facility] Work Phone: 1(416) 481-353205-19-2024 Progress note Author Avtar Barbosa [facility] February 07, 2024 10:24pm Note Date/Time February 07, 2024 11:49 am [facility] [address] [place] [address] Physiatry(Rehab) Progress Note Signed Patient: Moustapha Alejandra MR#: [id number] : 1945 Acct:[id number] Age/Sex: 78 / F Adm Date: 4 Loc: Room: [address] [place] [address] Type: ADM IN Attending Dr: Avtar Barbosa MD Copies to: ~ Date of Service: 02/07/2024 Subjective Subjective Narrative: Ms. 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 She was independent at home after her stroke, she was working with speech therapy in the outpatient setting, she reports a slip and fall in the kitchen while cleaning up dinner. Imaging demonstrated right subcapital hip fracture and she underwent operative intervention with Dr. Serra on January 28. Today, she stable. Labs reviewed. Cleared by orthopedics, she to admit to rehabilitation unit. Patient agreeable. Interval history: PAtient seen and evaluated today. Resting comfortably in bed. Appears in no distress. She states that she is doing well today. Hip pain well controlled. Denies chest pain, SOB, fever, chills. Tolerating therapy well. Review of Systems Review of Systems All other systems reviewed & are negative unless noted below or in HPI Exam Physical Exam Vital Signs: Temp Pulse Resp BP Pulse Ox O2 Del Method O2 Flow Rate 98.1 F 75 18 137/80 94 L Room Air 1 02/07/24 05:53 02/07/24 05:53 02/07/24 05:53 02/07/24 05:53 02/07/24 05:53 02/07/24 05:53 02/03/24 08:00 Narrative: Gen: Awake, oriented, cooperative. HEENT: Atraumatic, PERRL, EOMI Resp: No respiratory distress Cardio: Extremities well perfused MSK: Moves all extremities spontaneously Neuro: CN grossly intact Skin: No swelling, erythema, ecchymosis appreciated. Hip incision with wound vac. No erythema, swelling. Psych: Mood and affect normal Objective Labs 02/05/24 04:45 02/06/24 06:02 Medications and Allergies Allergies and Active Meds: Allergies Iodinated Contrast Media [From Contrast Media] Allergy (Severe, Verified 01/28/24 18:13) Anaphylaxis meperidine [Demerol] Allergy (Unknown, Verified 01/28/24 18:13) Unknown Reaction neomycin Allergy (Unknown, Verified 01/28/24 18:13) Unknown Reaction Active Medications Generic Name Dose Route Start Last Admin Trade Name Freq PRN Reason Stop Dose Admin Acetaminophen 1,000 mg 02/03/24 14:00 02/07/24 08:24 Acetaminophen 500 Mg Tablet PO 02/02/25 13:59 1,000 mg TID GENEVIEVE Administration Al Hydrox/Mg Hydrox/Simethicone 30 ml 01/30/24 15:13 Mag Hydrox/Al Hydrox/Simeth 30 Ml Udc PO 01/29/25 15:12 Q4H PRN Indigestion Amlodipine Besylate 10 mg 02/06/24 09:00 02/07/24 08:24 Amlodipine 10 Mg Tablet PO 02/05/25 08:59 10 mg DAILY GENEVIEVE Administration Ascorbic Acid 500 mg 01/31/24 09:00 02/07/24 08:23 Ascorbic Acid 500 Mg Tablet PO 01/30/25 08:59 500 mg DAILY GENEVIEVE Administration Aspirin 81 mg 01/31/24 09:00 02/07/24 08:24 Aspirin 81 Mg Tablet.Dr PO 01/30/25 08:59 81 mg DAILY GENEIVEVE Administration Atorvastatin Calcium 40 mg 01/30/24 21:00 02/06/24 21:19 Atorvastatin 40 Mg Tablet PO 01/29/25 20:59 40 mg QPM GENEVIEVE Administration Bisacodyl 10 mg 01/30/24 15:13 Bisacodyl 10 Mg Supp.Rect OK 01/29/25 15:12 DAILY PRN Constipation Calcium Carbonate 1 tab 01/30/24 17:00 02/07/24 08:24 Calcium Carbonate/Vitamin D3 500 Mg/200 Unit Tablet PO 01/29/25 16:59 1 tab TID.WITH.MEALS GENEVIEVE Administration Docusate Sodium 100 mg 01/30/24 15:13 02/05/24 17:35 Docusate 100 Mg Capsule PO 01/29/25 15:12 100 mg BID PRN Administration Constipation Docusate Sodium 283 mg 01/30/24 15:13 Docusate Enema 283 Mg/5 Ml Enema OK 01/29/25 15:12 DAILY PRN Constipation Duloxetine HCl 60 mg 01/31/24 09:00 02/07/24 08:23 Duloxetine 60 Mg Capsule. PO 01/30/25 08:59 60 mg DAILY GENEVIEVE Administration Enoxaparin Sodium 30 mg 01/30/24 22:00 02/07/24 09:32 Enoxaparin 30 Mg/0.3 Ml Syringe SUBCUT 01/29/25 21:59 Not Given BID@1000,2200 GENEVIEVE Ferrous Sulfate 324 mg 02/04/24 09:00 02/06/24 07:55 Ferrous Sulfate 324 Mg Tablet. PO 02/03/25 08:59 324 mg Q48H GENEVIEVE Administration Fluticasone Propionate 2 spray 01/30/24 15:11 Fluticasone Propionate Omaha 120 Omaha/16 Gm Bottle INTRANASAL 01/29/25 15:10 DAILY PRN allergy symptoms Hydrochlorothiazide 25 mg 01/31/24 09:00 02/07/24 08:24 Hydrochlorothiazide 25 Mg Tablet PO 01/30/25 08:59 25 mg DAILY GENEVIEVE Administration Lactulose 30 gm 01/30/24 15:13 02/02/24 13:09 Lactulose 20 Gm/30 Ml Udc PO 01/29/25 15:12 30 gm DAILY PRN Administration Constipation Latanoprost 1 drops 01/31/24 22:00 02/06/24 21:21 Latanoprost 0.005% Op Soln 50 Drops/2.5 Ml Bottle EYE-BOTH 01/30/25 21:59 1 drops HS GENEVIEVE Administration Loratadine 10 mg 01/31/24 09:00 02/07/24 08:24 Loratadine 10 Mg Tablet PO 01/30/25 08:59 10 mg DAILY GENEVIEVE Administration Multivitamins 1 tab 01/31/24 09:00 02/07/24 08:24 Multivitamin 1 Tab Tablet PO 01/30/25 08:59 1 tab DAILY GENEVIEVE Administration Nystatin 1 applic 01/30/24 21:00 02/07/24 08:25 Nystatin 100,000 Unit/Gram Powder 15 Gm Bottle TOPICAL 01/29/25 20:59 1 applic BID GENEVIEVE Administration Ondansetron HCl 4 mg 02/05/24 11:55 02/05/24 12:28 Ondansetron Odt 4 Mg Tab.Rapdis PO 02/04/25 11:54 4 mg Q8HR PRN Administration Nausea And Vomiting Oxycodone HCl 5 mg 01/31/24 12:42 02/05/24 21:34 Oxycodone Ir 5 Mg Tablet PO 5 mg Q4H PRN Administration Pain Scale 4 - 7 Oxycodone HCl 10 mg 01/31/24 12:42 02/06/24 21:20 Oxycodone Ir 5 Mg Tablet PO 10 mg Q4H PRN Administration Pain Scale 7 - 10 Sennosides 2 tab 01/31/24 12:00 02/05/24 17:35 Sennosides 8.6 Mg Tablet PO 01/30/25 11:59 2 tab DAILY@12 PRN Administration If no BM in 2 days Sodium Chloride 0 ml 01/30/24 15:13 Sodium Chloride 0.9 % 10 Ml Syringe IV-PUSH 01/29/25 15:12 PRN PRN Flush Assessment/Plan Assessment/Plan (1) Hip fracture, right: (2) S/P hip hemiarthroplasty: (3) Postoperative anemia due to acute blood loss: (4) Expressive aphasia: (5) Anxiety: (6) HTN (hypertension): Plan Ms. 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 -Will recheck potassium in AM. Discussed high potassium foods with patient that she can include in diet -Continue to trend Hgb -Patient continues to improve. Likely DC home middle of next week Hospitalist to assist with management of comorbid medical conditions Pain control: Limit opioids. Encourage tylenol ice and topical modalities Bowel and bladder: Bowel regimen in place. Monitor for bladder retention. Skin: Monitor operative site; no pressure ulcers on admssion Sleep: Optimize sleep wake cycle DVT prophylaxis: Lovenox during admission. Xarelto v. ASA 81 BID at discharge from IRF. Functional status: Impaired. Still needs [employer]. Will order. Discharge planning: Home in 2 weeks. I spent 28 minutes for services, including [id number] encounter with the patient, discussion of the case, plan of care, and exam; and [id number] activities, such as reviewing pertinent mental health consultant documentation, recent therapy notes, laboratory and radiology studies, and discussion of case with care team including physician, nursing, case work aide, and therapists. More than 50 % of time was spent on patient/family counseling or coordination of care. Documented By: Avtar Barbosa MD [id number] Signed By: <Electronically signed by Avtar Barbosa MD> 02/07/24 2223 [facility] Work Phone: 1(811) 972-711605-18-2024 Progress note Author Scottie Coleman [facility] February 07, 2024 7:15pm Note Date/Time February 07, 2024 2:44p m [facility] [address] [place] [address] Hospitalist Progress Note Signed Patient: Moustapha Alejandra MR#: [id number] : 1945 Acct:[id number] Age/Sex: 78 / F Adm Date: 4 Loc: Room: [address] [place] [address] Type: ADM IN Attending Dr: Avtar Barbosa MD Copies to: ~ Date of Service: 02/07/2024 Subjective Subjective Narrative: Seen and examined on follow-up, resting comfortably in bed. Reporting minimal right hip pain and continues to work well with physical therapy.. Vital signs reviewed, blood pressure previously elevated, plan is monitor for now. Labs from 02/04 with hemoglobin 9.5 on ferrous sulfate with no signs and symptoms of bleeding. Will continue to monitor, no other issues or concerns at this time Exam Physical Exam Vital Signs: Temp Pulse Resp BP Pulse Ox O2 Del Method O2 Flow Rate 98.1 F 75 18 137/80 94 L Room Air 1 02/07/24 05:53 02/07/24 05:53 02/07/24 05:53 02/07/24 05:53 02/07/24 05:53 02/07/24 05:53 02/03/24 08:00 Narrative: CONST-resting comfortably in bed CARDIAC-normal rate, regular rhythm, normal S1 & S2. PULM-diminished without wheeze or rhonchi, RA, no accessory muscle use or cough noted ABD - Soft. Bowel sounds are normal. No distention No tenderness EXTREM-no edema BLE calves nontender SKIN-incision site occluded with dressing Objective Lab Results 02/05/24 04:45 02/06/24 06:02 Meds Allergies and Active Meds Allergies Iodinated Contrast Media [From Contrast Media] Allergy (Severe, Verified 01/28/24 18:13) Anaphylaxis meperidine [Demerol] Allergy (Unknown, Verified 01/28/24 18:13) Unknown Reaction neomycin Allergy (Unknown, Verified 01/28/24 18:13) Unknown Reaction Active Meds: Active Medications Generic Name Dose Route Start Last Admin Trade Name Freq PRN Reason Stop Dose Admin Acetaminophen 1,000 mg 02/03/24 14:00 02/07/24 13:44 Acetaminophen 500 Mg Tablet PO 02/02/25 13:59 1,000 mg TID GENEVIEVE Administration Al Hydrox/Mg Hydrox/Simethicone 30 ml 01/30/24 15:13 Mag Hydrox/Al Hydrox/Simeth 30 Ml Udc PO 01/29/25 15:12 Q4H PRN Indigestion Amlodipine Besylate 10 mg 02/06/24 09:00 02/07/24 08:24 Amlodipine 10 Mg Tablet PO 02/05/25 08:59 10 mg DAILY GENEVIEVE Administration Ascorbic Acid 500 mg 01/31/24 09:00 02/07/24 08:23 Ascorbic Acid 500 Mg Tablet PO 01/30/25 08:59 500 mg DAILY GENEVIEVE Administration Aspirin 81 mg 01/31/24 09:00 02/07/24 08:24 Aspirin 81 Mg Tablet.Dr PO 01/30/25 08:59 81 mg DAILY GENEVIEVE Administration Atorvastatin Calcium 40 mg 01/30/24 21:00 02/06/24 21:19 Atorvastatin 40 Mg Tablet PO 01/29/25 20:59 40 mg QPM GENEVIEVE Administration Bisacodyl 10 mg 01/30/24 15:13 Bisacodyl 10 Mg Supp.Rect OK 01/29/25 15:12 DAILY PRN Constipation Calcium Carbonate 1 tab 01/30/24 17:00 02/07/24 12:09 Calcium Carbonate/Vitamin D3 500 Mg/200 Unit Tablet PO 01/29/25 16:59 1 tab TID.WITH.MEALS GENEVIEVE Administration Docusate Sodium 100 mg 01/30/24 15:13 02/05/24 17:35 Docusate 100 Mg Capsule PO 01/29/25 15:12 100 mg BID PRN Administration Constipation Docusate Sodium 283 mg 01/30/24 15:13 Docusate Enema 283 Mg/5 Ml Enema OK 01/29/25 15:12 DAILY PRN Constipation Duloxetine HCl 60 mg 01/31/24 09:00 02/07/24 08:23 Duloxetine 60 Mg Capsule. PO 01/30/25 08:59 60 mg DAILY GENEVIEVE Administration Enoxaparin Sodium 30 mg 01/30/24 22:00 02/07/24 09:32 Enoxaparin 30 Mg/0.3 Ml Syringe SUBCUT 01/29/25 21:59 Not Given BID@1000,2200 GENEVIEVE Ferrous Sulfate 324 mg 02/04/24 09:00 02/06/24 07:55 Ferrous Sulfate 324 Mg Tablet. PO 02/03/25 08:59 324 mg Q48H GENEVIEVE Administration Fluticasone Propionate 2 spray 01/30/24 15:11 Fluticasone Propionate Omaha 120 Omaha/16 Gm Bottle INTRANASAL 01/29/25 15:10 DAILY PRN allergy symptoms Hydrochlorothiazide 25 mg 01/31/24 09:00 02/07/24 08:24 Hydrochlorothiazide 25 Mg Tablet PO 01/30/25 08:59 25 mg DAILY GENEVIEVE Administration Lactulose 30 gm 01/30/24 15:13 02/02/24 13:09 Lactulose 20 Gm/30 Ml Udc PO 01/29/25 15:12 30 gm DAILY PRN Administration Constipation Latanoprost 1 drops 01/31/24 22:00 02/06/24 21:21 Latanoprost 0.005% Op Soln 50 Drops/2.5 Ml Bottle EYE-BOTH 01/30/25 21:59 1 drops HS GENEVIEVE Administration Loratadine 10 mg 01/31/24 09:00 02/07/24 08:24 Loratadine 10 Mg Tablet PO 01/30/25 08:59 10 mg DAILY GENEVIEVE Administration Multivitamins 1 tab 01/31/24 09:00 02/07/24 08:24 Multivitamin 1 Tab Tablet PO 01/30/25 08:59 1 tab DAILY GENEVIEVE Administration Nystatin 1 applic 01/30/24 21:00 02/07/24 08:25 Nystatin 100,000 Unit/Gram Powder 15 Gm Bottle TOPICAL 01/29/25 20:59 1 applic BID GENEVIEVE Administration Ondansetron HCl 4 mg 02/05/24 11:55 02/05/24 12:28 Ondansetron Odt 4 Mg Tab.Rapdis PO 02/04/25 11:54 4 mg Q8HR PRN Administration Nausea And Vomiting Oxycodone HCl 5 mg 01/31/24 12:42 02/05/24 21:34 Oxycodone Ir 5 Mg Tablet PO 5 mg Q4H PRN Administration Pain Scale 4 - 7 Oxycodone HCl 10 mg 01/31/24 12:42 02/06/24 21:20 Oxycodone Ir 5 Mg Tablet PO 10 mg Q4H PRN Administration Pain Scale 7 - 10 Sennosides 2 tab 01/31/24 12:00 02/05/24 17:35 Sennosides 8.6 Mg Tablet PO 01/30/25 11:59 2 tab DAILY@12 PRN Administration If no BM in 2 days Sodium Chloride 0 ml 01/30/24 15:13 Sodium Chloride 0.9 % 10 Ml Syringe IV-PUSH 01/29/25 15:12 PRN PRN Flush A&P - Hospitalist Assessment/Plan (1) S/P hip hemiarthroplasty: (2) Fall: (3) Postoperative anemia: (4) Expressive aphasia: (5) History of CVA (cerebrovascular accident): (6) HTN (hypertension): (7) Dyslipidemia: (8) Glaucoma: (9) Seasonal allergies: (10) Subcapital fracture of right hip: (11) Depression with anxiety: (12) Hypoxia: Plan Fall Right hip fracture s/p ORIF 01/29/2024 Postoperative blood loss anemia Recent CVA 12/21/2023 with ongoing expressive aphasia -Further POC per PMR team for rehabilitative therapy, pain control and bowel regimen, DVT PPx enoxaparin noting lower platelets continue to monitor -Please defer any postoperative questions/concerns to orthopedics team -Vitamin C, calcium, ferrous sulfate per Ortho preference -Preop Hgb 14.3, hemoglobin 9.5 on 02/04, on iron supplement -Aspirin and statin for ongoing secondary stroke prevention Hypoxia,?resolved Right calf tenderness and enlargement, no pitting edema -Venous Doppler negative for DVT Chronic conditions 1. Hypertension, dyslipidemia?amlodipine, HCTZ- BP reviewed, have been elevated, controlled today. Will continue to monitor 2. Depression?duloxetine 3. Glaucoma?latanoprost 4. Allergies?loratadine and nasal Flutex Documented By: Fatemeh Pacheco APRN 02/07/24 1439 Signed By: <Electronically signed by LIVAN Pacheco> 02/07/24 1450 <Electronically signed by Scottie Coleman DO> 02/07/241914 [facility] Work Phone: 1(225) 901-945405-17-2024 Progress note Author Avtar Barobsa [facility] February 06, 2024 9:49am Note Date/Time February 05, 2024 12:03 pm [facility] [address] [place] [address] Physiatry(Rehab) Progress Note Signed Patient: Moustapha Alejandra MR#: [id number] : 1945 Acct:[id number] Age/Sex: 78 / F Adm Date: 4 Loc: Room: [address] [place] [address] Type: ADM IN Attending Dr: Avtar Barbosa MD Copies to: ~ Date of Service: 02/05/2024 Subjective Subjective Narrative: Ms. 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 She was independent at home after her stroke, she was working with speech therapy in the outpatient setting, she reports a slip and fall in the kitchen while cleaning up dinner. Imaging demonstrated right subcapital hip fracture and she underwent operative intervention with Dr. Serra on January 28. Today, she stable. Labs reviewed. Cleared by orthopedics, she to admit to rehabilitation unit. Patient agreeable. Interval history: Was seen and examined at the bedside while working with speech therapy. Reportsan episode of of vomiting after having coughing spell . Feeling better now, denies nausea. No abdominal pain. I will order some prn Zofran. She reports no BM x 2 days, did ask for some bowel meds this morning. Morning labs notable for significant hypokalemia, K2.9. Replaced with 40 mill equivalents of KCl. Will recheck tomorrow morning. She is doing reasonably well in therapy. Ambulatory 112 feet with a walker and standby assistance. SBA with transfers. Review of Systems Review of Systems All other systems reviewed & are negative unless noted below or in HPI Exam Physical Exam Vital Signs: Temp Pulse Resp BP Pulse Ox O2 Del Method O2 Flow Rate 98.2 F 89 20 169/79 H 92 L Room Air 1 02/05/24 05:00 02/05/24 05:00 02/05/24 05:00 02/05/24 05:00 02/05/24 05:00 02/05/24 05:00 02/03/24 08:00 Narrative: General: Awake, alert, oriented x3 HENT: Normal to inspection, normocephalic, atraumatic Eyes: PERRL, normal conjunctiva and sclera Neck: Normal ROM, normal visual inspection. Trachea midline. Cardio: Regular heart rate and rhythm Respiratory: Clear to auscultation bilaterally. Normal respiratory effort. No respiratory distress. GI: Abdomen soft, nontender, nondistended, active bowel sounds x4 quadrants Neuro: CN II-XII intact. Strength 5/5, equal bilaterally Extremities: No edema, erythema, cyanosis Psych: Mood and affect appropriate. Expressive aphasia. Objective Labs 02/05/24 04:45 02/05/24 04:45 Labs: Laboratory Results - last 24 hr 02/04/24 02/05/24 16:00 04:45 Corrected WBC 6.6 Uncorrected WBC Count 6.6 RBC 3.17 L Hgb 9.5 L Hct 27.8 L MCV 87.6 MCH 29.9 MCHC 34.1 RDW 13.7 Plt Count 208 MPV 8.7 Neut % (Auto) 68.6 Lymph % (Auto) 13.7 Bowie % (Auto) 11.3 Eos % (Auto) 5.8 Baso % (Auto) 0.6 Nucleat RBC Rel Count 0.2 Neut # (Auto) 4.5 Lymph # (Auto) 0.9 L Bowie # (Auto) 0.8 Eos # (Auto) 0.4 Baso # (Auto) 0.0 Platelet Estimate Normal Plt Morphology Comment Normal RBC Morphology Normal Polychromasia Slight Hypochromasia Moderate Poikilocytosis Slight Microcytosis Slight Stomatocytes Slight PHA Creatinine Clear 59.27 Sodium 136 Potassium 2.9 L* Chloride 98 Carbon Dioxide 35.6 H Anion Gap 5.3 L BUN 15 Creatinine 0.84 Est GFR (CKD-EPI) > 60.0 Glucose 101 H Calcium 8.6 Urine Color Yellow Urine Appearance Clear Urine pH 7.0 Ur Specific [place] 1.006 Urine Protein Negative Urine Glucose (UA) Normal Urine Ketones Negative Urine Occult Blood Negative Urine Nitrite Negative Urine Bilirubin Negative Urine Urobilinogen Normal Ur Leukocyte Esterase Negative Additional Results Results Comments: I reviewed clinical lab tests, radiology reports and obtained and summated medical records and have ordered follow up lab tests and imaging studies as needed for rehabilitation care. Medications and Allergies Allergies and Active Meds: Allergies Iodinated Contrast Media [From Contrast Media] Allergy (Severe, Verified 01/28/24 18:13) Anaphylaxis meperidine [Demerol] Allergy (Unknown, Verified 01/28/24 18:13) Unknown Reaction neomycin Allergy (Unknown, Verified 01/28/24 18:13) Unknown Reaction Active Medications Generic Name Dose Route Start Last Admin Trade Name Freq PRN Reason Stop Dose Admin Acetaminophen 1,000 mg 02/03/24 14:00 02/05/24 09:14 Acetaminophen 500 Mg Tablet PO 02/02/25 13:59 1,000 mg TID GENEVIEVE Administration Al Hydrox/Mg Hydrox/Simethicone 30 ml 01/30/24 15:13 Mag Hydrox/Al Hydrox/Simeth 30 Ml Udc PO 01/29/25 15:12 Q4H PRN Indigestion Amlodipine Besylate 10 mg 02/06/24 09:00 Amlodipine 10 Mg Tablet PO 02/05/25 08:59 DAILY GENEVIEVE Ascorbic Acid 500 mg 01/31/24 09:00 02/05/24 09:14 Ascorbic Acid 500 Mg Tablet PO 01/30/25 08:59 500 mg DAILY GENEVIEVE Administration Aspirin 81 mg 01/31/24 09:00 02/05/24 09:14 Aspirin 81 Mg Tablet.Dr PO 01/30/25 08:59 81 mg DAILY GENEVIEVE Administration Atorvastatin Calcium 40 mg 01/30/24 21:00 02/04/24 20:00 Atorvastatin 40 Mg Tablet PO 01/29/25 20:59 40 mg QPM GENEVIEVE Administration Bisacodyl 10 mg 01/30/24 15:13 Bisacodyl 10 Mg Supp.Rect OK 01/29/25 15:12 DAILY PRN Constipation Calcium Carbonate 1 tab 01/30/24 17:00 02/05/24 11:54 Calcium Carbonate/Vitamin D3 500 Mg/200 Unit Tablet PO 01/29/25 16:59 1 tab TID.WITH.MEALS GENEVIEVE Administration Docusate Sodium 100 mg 01/30/24 15:13 02/04/24 20:00 Docusate 100 Mg Capsule PO 01/29/25 15:12 100 mg BID PRN Administration Constipation Docusate Sodium 283 mg 01/30/24 15:13 Docusate Enema 283 Mg/5 Ml Enema OK 01/29/25 15:12 DAILY PRN Constipation Duloxetine HCl 60 mg 01/31/24 09:00 02/05/24 09:14 Duloxetine 60 Mg Capsule. PO 01/30/25 08:59 60 mg DAILY GENEVIEVE Administration Enoxaparin Sodium 30 mg 01/30/24 22:00 02/05/24 09:15 Enoxaparin 30 Mg/0.3 Ml Syringe SUBCUT 01/29/25 21:59 30 mg BID@1000,2200 GENEVIEVE Administration Ferrous Sulfate 324 mg 02/04/24 09:00 02/04/24 08:25 Ferrous Sulfate 324 Mg Tablet. PO 02/03/25 08:59 324 mg Q48H GENEVIEVE Administration Fluticasone Propionate 2 spray 01/30/24 15:11 Fluticasone Propionate Omaha 120 Omaha/16 Gm Bottle INTRANASAL 01/29/25 15:10 DAILY PRN allergy symptoms Hydrochlorothiazide 25 mg 01/31/24 09:00 02/05/24 09:14 Hydrochlorothiazide 25 Mg Tablet PO 01/30/25 08:59 25 mg DAILY GENEVIEVE Administration Lactulose 30 gm 01/30/24 15:13 02/02/24 13:09 Lactulose 20 Gm/30 Ml Udc PO 01/29/25 15:12 30 gm DAILY PRN Administration Constipation Latanoprost 1 drops 01/31/24 22:00 02/04/24 20:01 Latanoprost 0.005% Op Soln 50 Drops/2.5 Ml Bottle EYE-BOTH 01/30/25 21:59 1 drops HS GENEVIEVE Administration Loratadine 10 mg 01/31/24 09:00 02/05/24 09:14 Loratadine 10 Mg Tablet PO 01/30/25 08:59 10 mg DAILY GENEVIEVE Administration Multivitamins 1 tab 01/31/24 09:00 02/05/24 09:14 Multivitamin 1 Tab Tablet PO 01/30/25 08:59 1 tab DAILY GENEVIEVE Administration Nystatin 1 applic 01/30/24 21:00 02/05/24 09:16 Nystatin 100,000 Unit/Gram Powder 15 Gm Bottle TOPICAL 01/29/25 20:59 1 applic BID GENEVIEVE Administration Oxycodone HCl 5 mg 01/31/24 12:42 02/05/24 05:57 Oxycodone Ir 5 Mg Tablet PO 5 mg Q4H PRN Administration Pain Scale 4 - 7 Oxycodone HCl 10 mg 01/31/24 12:42 02/04/24 05:55 Oxycodone Ir 5 Mg Tablet PO 10 mg Q4H PRN Administration Pain Scale 7 - 10 Sennosides 2 tab 01/31/24 12:00 02/01/24 16:29 Sennosides 8.6 Mg Tablet PO 01/30/25 11:59 2 tab DAILY@12 PRN Administration If no BM in 2 days Sodium Chloride 0 ml 01/30/24 15:13 Sodium Chloride 0.9 % 10 Ml Syringe IV-PUSH 01/29/25 15:12 PRN PRN Flush Assessment/Plan Assessment/Plan (1) Hip fracture, right: (2) S/P hip hemiarthroplasty: (3) Postoperative anemia due to acute blood loss: (4) Expressive aphasia: (5) Anxiety: (6) HTN (hypertension): Plan Ms. 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 -Hypokalemic at 2.9 this morning. Given 40 mill equivalents of KCl. Recheck levels tomorrow. -H&H stable, 10.5/27.8. Will trend -Add prn Zofran for complaints of nausea. -Bilateral lower extremity Juan Carlos wrap to help with edema. Hospitalist to assist with management of comorbid medical conditions Pain control: Limit opioids. Encourage tylenol ice and topical modalities Bowel and bladder: Bowel regimen in place. Monitor for bladder retention. Skin: Monitor operative site; no pressure ulcers on admssion Sleep: Optimize sleep wake cycle DVT prophylaxis: Lovenox during admission. Xarelto v. ASA 81 BID at discharge from IRF. Functional status: Impaired. Still needs [employer]. Will order. Discharge planning: Home in 2 weeks. I spent 21 minutes for services, including [id number] encounter with the patient, discussion of the case, plan of care, and exam; and [id number] activities, such as reviewing pertinent mental health consultant documentation, recent therapy notes, laboratory and radiology studies, and discussion of case with care team including physician, nursing, case work aide, and therapists. More than 50 % of time was spent on patient/family counseling or coordination of care. <Statement entered by Avtar Barbosa MD - 02/06/24 09:48> I reviewed the history and the relevant portions of the chart, including current orders, allied health and mental health consultant notes, labs/imaging and plan of care as above. Documented By: Loulou Newton APRN 02/05/24 1 156 Signed By: <Electronically signed by LIVAN Newton> 02/05/24 1203 <Electronically signed by Avtar Barbosa MD> 02/06/24 0949 [facility] Work Phone: 1(340) 674-616905-16-2024 Progress note Author Avtar Barbosa [facility] February 05, 2024 11:56am Note Date/Time February 04, 2024 2:55p m [facility] [address] [place] [address] Physiatry(Rehab) Progress Note Signed Patient: Moustapha Alejandra MR#: [id number] : 1945 Acct:[id number] Age/Sex: 78 / F Adm Date: 4 Loc: Room: [address] [place] [address] Type: ADM IN Attending Dr: Avtar Barbosa MD Copies to: ~ Date of Service: 02/04/2024 Subjective Subjective Narrative: Ms. 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 She was independent at home after her stroke, she was working with speech therapy in the outpatient setting, she reports a slip and fall in the kitchen while cleaning up dinner. Imaging demonstrated right subcapital hip fracture and she underwent operative intervention with Dr. Serra on January 28. Today, she stable. Labs reviewed. Cleared by orthopedics, she to admit to rehabilitation unit. Patient agreeable. Interval history: Patient seen and evaluated at bedside. Lying comfortably in bed. States that pain is better controlled today. Admits to continued urinary frequency. No dysuria. No chest pain, SOB, fever, chills. Tolerating therapy Review of Systems Review of Systems All other systems reviewed & are negative unless noted below or in HPI Exam Physical Exam Vital Signs: Temp Pulse Resp BP Pulse Ox O2 Del Method O2 Flow Rate 98.1 F 85 18 150/81 H 92 L Room Air 1 02/04/24 05:58 02/04/24 05:58 02/04/24 05:58 02/04/24 05:58 02/04/24 05:58 02/04/24 05:58 02/03/24 08:00 Narrative: Gen: Awake, oriented, cooperative. HEENT: Atraumatic, PERRL, EOMI Resp: No respiratory distress Cardio: Extremities well perfused MSK: Moves all extremities spontaneously Neuro: CN grossly intact Skin: No swelling, erythema, ecchymosis appreciated Psych: Mood and affect normal Objective Labs 02/05/24 04:45 02/05/24 04:45 Medications and Allergies Allergies and Active Meds: Allergies Iodinated Contrast Media [From Contrast Media] Allergy (Severe, Verified 01/28/24 18:13) Anaphylaxis meperidine [Demerol] Allergy (Unknown, Verified 01/28/24 18:13) Unknown Reaction neomycin Allergy (Unknown, Verified 01/28/24 18:13) Unknown Reaction Active Medications Generic Name Dose Route Start Last Admin Trade Name Freq PRN Reason Stop Dose Admin Acetaminophen 1,000 mg 02/03/24 14:00 02/04/24 13:47 Acetaminophen 500 Mg Tablet PO 02/02/25 13:59 1,000 mg TID GENEVIEVE Administration Al Hydrox/Mg Hydrox/Simethicone 30 ml 01/30/24 15:13 Mag Hydrox/Al Hydrox/Simeth 30 Ml Udc PO 01/29/25 15:12 Q4H PRN Indigestion Amlodipine Besylate 5 mg 01/31/24 09:00 02/04/24 08:25 Amlodipine 5 Mg Tablet PO 01/30/25 08:59 5 mg DAILY GENEVIEVE Administration Ascorbic Acid 500 mg 01/31/24 09:00 02/04/24 08:25 Ascorbic Acid 500 Mg Tablet PO 01/30/25 08:59 500 mg DAILY GENEVIEVE Administration Aspirin 81 mg 01/31/24 09:00 02/04/24 08:25 Aspirin 81 Mg Tablet. PO 01/30/25 08:59 81 mg DAILY GENEVIEVE Administration Atorvastatin Calcium 40 mg 01/30/24 21:00 02/03/24 21:28 Atorvastatin 40 Mg Tablet PO 01/29/25 20:59 40 mg QPM GENEVIEVE Administration Bisacodyl 10 mg 01/30/24 15:13 Bisacodyl 10 Mg Supp.Rect OK 01/29/25 15:12 DAILY PRN Constipation Calcium Carbonate 1 tab 01/30/24 17:00 02/04/24 12:13 Calcium Carbonate/Vitamin D3 500 Mg/200 Unit Tablet PO 01/29/25 16:59 1 tab TID.WITH.MEALS GENEVIEVE Administration Docusate Sodium 100 mg 01/30/24 15:13 02/01/24 06:36 Docusate 100 Mg Capsule PO 01/29/25 15:12 100 mg BID PRN Administration Constipation Docusate Sodium 283 mg 01/30/24 15:13 Docusate Enema 283 Mg/5 Ml Enema OK 01/29/25 15:12 DAILY PRN Constipation Duloxetine HCl 60 mg 01/31/24 09:00 02/04/24 08:25 Duloxetine 60 Mg Capsule. PO 01/30/25 08:59 60 mg DAILY GENEVIEVE Administration Enoxaparin Sodium 30 mg 01/30/24 22:00 02/04/24 08:27 Enoxaparin 30 Mg/0.3 Ml Syringe SUBCUT 01/29/25 21:59 30 mg BID@1000,2200 GENEVIEVE Administration Ferrous Sulfate 324 mg 02/04/24 09:00 02/04/24 08:25 Ferrous Sulfate 324 Mg Tablet. PO 02/03/25 08:59 324 mg Q48H GENEVIEVE Administration Fluticasone Propionate 2 spray 01/30/24 15:11 Fluticasone Propionate Omaha 120 Omaha/16 Gm Bottle INTRANASAL 01/29/25 15:10 DAILY PRN allergy symptoms Hydrochlorothiazide 25 mg 01/31/24 09:00 02/04/24 08:25 Hydrochlorothiazide 25 Mg Tablet PO 01/30/25 08:59 25 mg DAILY GENEVIEVE Administration Lactulose 30 gm 01/30/24 15:13 02/02/24 13:09 Lactulose 20 Gm/30 Ml Udc PO 01/29/25 15:12 30 gm DAILY PRN Administration Constipation Latanoprost 1 drops 01/31/24 22:00 02/03/24 21:28 Latanoprost 0.005% Op Soln 50 Drops/2.5 Ml Bottle EYE-BOTH 01/30/25 21:59 1 drops HS GENEVIEVE Administration Loratadine 10 mg 01/31/24 09:00 02/04/24 08:25 Loratadine 10 Mg Tablet PO 01/30/25 08:59 10 mg DAILY GENEVIEVE Administration Multivitamins 1 tab 01/31/24 09:00 02/04/24 08:25 Multivitamin 1 Tab Tablet PO 01/30/25 08:59 1 tab DAILY GENEVIEVE Administration Nystatin 1 applic 01/30/24 21:00 02/04/24 08:27 Nystatin 100,000 Unit/Gram Powder 15 Gm Bottle TOPICAL 01/29/25 20:59 1 applic BID GENEVIEVE Administration Oxycodone HCl 5 mg 01/31/24 12:42 02/03/24 17:26 Oxycodone Ir 5 Mg Tablet PO 5 mg Q4H PRN Administration Pain Scale 4 - 7 Oxycodone HCl 10 mg 01/31/24 12:42 02/04/24 05:55 Oxycodone Ir 5 Mg Tablet PO 10 mg Q4H PRN Administration Pain Scale 7 - 10 Sennosides 2 tab 01/31/24 12:00 02/01/24 16:29 Sennosides 8.6 Mg Tablet PO 01/30/25 11:59 2 tab DAILY@12 PRN Administration If no BM in 2 days Sodium Chloride 0 ml 01/30/24 15:13 Sodium Chloride 0.9 % 10 Ml Syringe IV-PUSH 01/29/25 15:12 PRN PRN Flush Assessment/Plan Assessment/Plan (1) Hip fracture, right: (2) S/P hip hemiarthroplasty: (3) Postoperative anemia due to acute blood loss: (4) Expressive aphasia: (5) Anxiety: (6) HTN (hypertension): Plan Ms. 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 -Will order UA for complaints of urinary frequency -Current pain regimen is effective -Tolerating therapy, improving. Hospitalist to assist with management of comorbid medical conditions Pain control: Limit opioids. Encourage tylenol ice and topical modalities Bowel and bladder: Bowel regimen in place. Monitor for bladder retention. Skin: Monitor operative site; no pressure ulcers on admssion Sleep: Optimize sleep wake cycle DVT prophylaxis: Lovenox during admission. Xarelto v. ASA 81 BID at discharge from IRF. Functional status: Impaired. Still needs [employer]. Will order. Discharge planning: Home in 2 weeks. Patient was personally seen by me, Dr. Barbosa, on the day of encounter, reviewed the history and the relevant portions of the chart, including current orders, allied health and mental health consultant notes, labs/imaging and performed bourgeois elements of exam and I formulated the plan of care and facilitated the medical decision making. I completed a substantive portion of this encounter, the medical decision making portion of this note in its entirety, including Allied health note review, nursing note review, mental health consultant note review, discussion with nursing and case management, and more than 50% of my time was spent on counseling and coordination of care, time spent 25 minutes Documented By: Avtar Barbosa MD 145 Signed By: <Electronically signed by Avtar Barbosa MD> 02/05/24 1156 [facility] Work Phone: 1(500) 108-527605-14-2024 Progress note Author Avtar Barbosa [facility] February 03, 2024 2:49pm Note Date/Time February 03, 2024 2:49p m [facility] [address] [place] [address] Physiatry(Rehab) Progress Note Signed Patient: Moustapha Alejandra MR#: [id number] : 1945 Acct:[id number] Age/Sex: 78 / F Adm Date: 4 Loc: Room: 1U0039-8 Type: ADM IN Attending Dr: Avtar Barbosa MD Copies to: ~ Date of Service: 02/03/2024 Subjective Subjective Narrative: Ms. 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 She was independent at home after her stroke, she was working with speech therapy in the outpatient setting, she reports a slip and fall in the kitchen while cleaning up dinner. Imaging demonstrated right subcapital hip fracture and she underwent operative intervention with Dr. Serra on January 28. Today, she stable. Labs reviewed. Cleared by orthopedics, she to admit to rehabilitation unit. Patient agreeable. Interval history: Patient is up in bed eating lunch during assessment. She appears in no distresstoday. States that pain is well controlled. Does have some questions about timing of pain medications which were reviewed. She was weaned off supplemental O2 today. She is requesting to DC lasix if possible as she is up frequently to urinate since starting it. No dysuria. Review of Systems Review of Systems All other systems reviewed & are negative unless noted below or in HPI Exam Physical Exam Vital Signs: Temp Pulse Resp BP Pulse Ox O2 Del Method O2 Flow Rate 98.1 F 81 16 129/70 96 Nasal Cannula 1 02/03/24 06:23 02/03/24 06:23 02/03/24 06:23 02/03/24 06:23 02/03/24 06:23 02/03/24 08:00 02/03/24 08:00 Narrative: Gen: Awake, oriented, cooperative. HEENT: Atraumatic, PERRL, EOMI Resp: No respiratory distress Cardio: Extremities well perfused MSK: Moves all extremities spontaneously Neuro: CN grossly intact Skin: No swelling, erythema, ecchymosis appreciated Psych: Mood and affect normal Objective Labs 01/31/24 05:27 01/31/24 05:27 Medications and Allergies Allergies and Active Meds: Allergies Iodinated Contrast Media [From Contrast Media] Allergy (Severe, Verified 01/28/24 18:13) Anaphylaxis meperidine [Demerol] Allergy (Unknown, Verified 01/28/24 18:13) Unknown Reaction neomycin Allergy (Unknown, Verified 01/28/24 18:13) Unknown Reaction Active Medications Generic Name Dose Route Start Last Admin Trade Name Freq PRN Reason Stop Dose Admin Acetaminophen 1,000 mg 02/03/24 14:00 02/03/24 14:45 Acetaminophen 500 Mg Tablet PO 02/02/25 13:59 1,000 mg TID GENEVIEVE Administration Al Hydrox/Mg Hydrox/Simethicone 30 ml 01/30/24 15:13 Mag Hydrox/Al Hydrox/Simeth 30 Ml Udc PO 01/29/25 15:12 Q4H PRN Indigestion Amlodipine Besylate 5 mg 01/31/24 09:00 02/03/24 08:13 Amlodipine 5 Mg Tablet PO 01/30/25 08:59 5 mg DAILY GENEVIEVE Administration Ascorbic Acid 500 mg 01/31/24 09:00 02/03/24 08:13 Ascorbic Acid 500 Mg Tablet PO 01/30/25 08:59 500 mg DAILY GENEVIEVE Administration Aspirin 81 mg 01/31/24 09:00 02/03/24 08:13 Aspirin 81 Mg Tablet. PO 01/30/25 08:59 81 mg DAILY GENEVIEVE Administration Atorvastatin Calcium 40 mg 01/30/24 21:00 02/02/24 22:12 Atorvastatin 40 Mg Tablet PO 01/29/25 20:59 40 mg QPM GENEVIEVE Administration Bisacodyl 10 mg 01/30/24 15:13 Bisacodyl 10 Mg Supp.Rect OK 01/29/25 15:12 DAILY PRN Constipation Calcium Carbonate 1 tab 01/30/24 17:00 02/03/24 11:39 Calcium Carbonate/Vitamin D3 500 Mg/200 Unit Tablet PO 01/29/25 16:59 1 tab TID.WITH.MEALS GENEVIEVE Administration Docusate Sodium 100 mg 01/30/24 15:13 02/01/24 06:36 Docusate 100 Mg Capsule PO 01/29/25 15:12 100 mg BID PRN Administration Constipation Docusate Sodium 283 mg 01/30/24 15:13 Docusate Enema 283 Mg/5 Ml Enema OK 01/29/25 15:12 DAILY PRN Constipation Duloxetine HCl 60 mg 01/31/24 09:00 02/03/24 08:13 Duloxetine 60 Mg Capsule. PO 01/30/25 08:59 60 mg DAILY GENEVIEVE Administration Enoxaparin Sodium 30 mg 01/30/24 22:00 02/03/24 08:15 Enoxaparin 30 Mg/0.3 Ml Syringe SUBCUT 01/29/25 21:59 30 mg BID@1000,2200 GENEVIEVE Administration Ferrous Sulfate 324 mg 02/04/24 09:00 Ferrous Sulfate 324 Mg Tablet. PO 02/03/25 08:59 Q48H GENEVIEVE Fluticasone Propionate 2 spray 01/30/24 15:11 Fluticasone Propionate Omaha 120 Omaha/16 Gm Bottle INTRANASAL 01/29/25 15:10 DAILY PRN allergy symptoms Hydrochlorothiazide 25 mg 01/31/24 09:00 02/03/24 08:13 Hydrochlorothiazide 25 Mg Tablet PO 01/30/25 08:59 25 mg DAILY GENEVIEVE Administration Lactulose 30 gm 01/30/24 15:13 02/02/24 13:09 Lactulose 20 Gm/30 Ml Udc PO 01/29/25 15:12 30 gm DAILY PRN Administration Constipation Latanoprost 1 drops 01/31/24 22:00 02/02/24 22:12 Latanoprost 0.005% Op Soln 50 Drops/2.5 Ml Bottle EYE-BOTH 01/30/25 21:59 1 drops HS GENEVIEVE Administration Loratadine 10 mg 01/31/24 09:00 02/03/24 08:13 Loratadine 10 Mg Tablet PO 01/30/25 08:59 10 mg DAILY GENEVIEVE Administration Multivitamins 1 tab 01/31/24 09:00 02/03/24 08:13 Multivitamin 1 Tab Tablet PO 01/30/25 08:59 1 tab DAILY GENEVIEVE Administration Nystatin 1 applic 01/30/24 21:00 02/03/24 08:14 Nystatin 100,000 Unit/Gram Powder 15 Gm Bottle TOPICAL 01/29/25 20:59 1 applic BID GENEVIEVE Administration Oxycodone HCl 5 mg 01/31/24 12:42 02/03/24 12:21 Oxycodone Ir 5 Mg Tablet PO 5 mg Q4H PRN Administration Pain Scale 4 - 7 Oxycodone HCl 10 mg 01/31/24 12:42 02/03/24 08:13 Oxycodone Ir 5 Mg Tablet PO 10 mg Q4H PRN Administration Pain Scale 7 - 10 Sennosides 2 tab 01/31/24 12:00 02/01/24 16:29 Sennosides 8.6 Mg Tablet PO 01/30/25 11:59 2 tab DAILY@12 PRN Administration If no BM in 2 days Sodium Chloride 0 ml 01/30/24 15:13 Sodium Chloride 0.9 % 10 Ml Syringe IV-PUSH 01/29/25 15:12 PRN PRN Flush Assessment/Plan Assessment/Plan (1) Hip fracture, right: (2) S/P hip hemiarthroplasty: (3) Postoperative anemia due to acute blood loss: (4) Expressive aphasia: (5) Anxiety: (6) HTN (hypertension): Plan Ms. 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 -Will DC lasix. Patient off supplemental O2. No respiratory problems. Lower extremities do not appear edematous. Monitor intake and output. Add Daily weights. -Current pain regimen is effective, although will schedule tylenol -Tolerating therapy, improving. Hospitalist to assist with management of comorbid medical conditions Pain control: Limit opioids. Encourage tylenol ice and topical modalities Bowel and bladder: Bowel regimen in place. Monitor for bladder retention. Skin: Monitor operative site; no pressure ulcers on admssion Sleep: Optimize sleep wake cycle DVT prophylaxis: Lovenox during admission. Xarelto v. ASA 81 BID at discharge from IRF. Functional status: Impaired. Still needs [employer]. Will order. Discharge planning: Home in 2 weeks. Patient was personally seen by me, Dr. Barbosa, on the day of encounter, reviewed the history and the relevant portions of the chart, including current orders, allied health and mental health consultant notes, labs/imaging and performed bourgeois elements of exam and I formulated the plan of care and facilitated the medical decision making. I completed a substantive portion of this encounter, the medical decision making portion of this note in its entirety, including Allied health note review, nursing note review, mental health consultant note review, discussion with nursing and case management, and more than 50% of my time was spent on counseling and coordination of care, time spent 30 minutes Case reviewed at weekly team conference, discussed progress and goals of care, barriers/problems to date and discharge planning. Will review therapy notes at next weeks team meeting. Documented By: Avtar Barbosa MD [id number] Signed By: <Electronically signed by Avtar Barbosa MD> 02/03/24 144 [facility] Work Phone: 1(646) 736-622105-14-2024 Progress note Author Avtar Barbosa [facility] February 03, 2024 9:15am Note Date/Time February 02, 2024 12:27 pm [facility] [address] [place] [address] Physiatry(Rehab) Progress Note Signed Patient: Moustapha Alejandra MR#: [id number] : 1945 Acct:[id number] Age/Sex: 78 / F Adm Date: 4 Loc: Room: 5E1565-3 Type: ADM IN Attending Dr: Trey Guerra MD Copies to: ~ Date of Service: 02/02/2024 Subjective Subjective Narrative: Ms. 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 She was independent at home after her stroke, she was working with speech therapy in the outpatient setting, she reports a slip and fall in the kitchen while cleaning up dinner. Imaging demonstrated right subcapital hip fracture and she underwent operative intervention with Dr. Serra on January 28. Today, she stable. Labs reviewed. Cleared by orthopedics, she to admit to rehabilitation unit. Patient agreeable. Interval history: Patient is up in bed eating lunch during assessment. She is alert, pleasant, oriented. States, hip pain is much better controlled on current pain regimen. She is able to tolerate therapy better. This morning ambulated > 80 feet with awalker, got in and out of the car and was able to get up 1 stair. Vitals are relatively stable. She remains on some supplemental O2. Chest x- rayresults from yesterday notable for groundglass opacities which may represent mild pulmonary edema. Bilateral lower extremities are also mildly edematous. Will start her on some oral furosemide for a few days. Review of Systems Review of Systems All other systems reviewed & are negative unless noted below or in HPI Exam Physical Exam Vital Signs: Temp Pulse Resp BP Pulse Ox O2 Del Method O2 Flow Rate 98.2 F 102 H 18 145/78 H 97 Nasal Cannula 1 02/02/24 08:31 02/02/24 08:31 02/02/24 05:49 02/02/24 08:31 02/02/24 08:31 02/02/24 11:01 02/02/24 11:01 Narrative: General: Awake, alert, oriented x3 HENT: Normal to inspection, normocephalic, atraumatic Eyes: PERRL, normal conjunctiva and sclera Neck: Normal ROM, normal visual inspection. Trachea midline. Cardio: Regular heart rate and rhythm Respiratory: Clear to auscultation bilaterally. Normal respiratory effort. No respiratory distress. GI: Abdomen soft, nontender, nondistended, active bowel sounds x4 quadrants Neuro: CN II-XII intact. Strength 5/5, equal bilaterally Extremities: No edema, erythema, cyanosis Psych: Mood and affect appropriate. Expressive aphasia. Objective Labs 01/31/24 05:27 01/31/24 05:27 Medications and Allergies Allergies and Active Meds: Allergies Iodinated Contrast Media [From Contrast Media] Allergy (Severe, Verified 01/28/24 18:13) Anaphylaxis meperidine [Demerol] Allergy (Unknown, Verified 01/28/24 18:13) Unknown Reaction neomycin Allergy (Unknown, Verified 01/28/24 18:13) Unknown Reaction Active Medications Generic Name Dose Route Start Last Admin Trade Name Freq PRN Reason Stop Dose Admin Acetaminophen 1,000 mg 01/31/24 12:49 Acetaminophen 500 Mg Tablet PO 01/29/25 15:12 TID PRN Pain Al Hydrox/Mg Hydrox/Simethicone 30 ml 01/30/24 15:13 Mag Hydrox/Al Hydrox/Simeth 30 Ml Udc PO 01/29/25 15:12 Q4H PRN Indigestion Amlodipine Besylate 5 mg 01/31/24 09:00 02/02/24 08:30 Amlodipine 5 Mg Tablet PO 01/30/25 08:59 5 mg DAILY GENVEIEVE Administration Ascorbic Acid 500 mg 01/31/24 09:00 02/02/24 08:30 Ascorbic Acid 500 Mg Tablet PO 01/30/25 08:59 500 mg DAILY GENEVIEVE Administration Aspirin 81 mg 01/31/24 09:00 02/02/24 08:30 Aspirin 81 Mg Tablet.Dr PO 01/30/25 08:59 81 mg DAILY GENEVIEVE Administration Atorvastatin Calcium 40 mg 01/30/24 21:00 02/01/24 21:06 Atorvastatin 40 Mg Tablet PO 01/29/25 20:59 40 mg QPM GENEVIEVE Administration Bisacodyl 10 mg 01/30/24 15:13 Bisacodyl 10 Mg Supp.Rect OK 01/29/25 15:12 DAILY PRN Constipation Calcium Carbonate 1 tab 01/30/24 17:00 02/02/24 11:43 Calcium Carbonate/Vitamin D3 500 Mg/200 Unit Tablet PO 01/29/25 16:59 1 tab TID.WITH.MEALS GENEVIEVE Administration Docusate Sodium 100 mg 01/30/24 15:13 02/01/24 06:36 Docusate 100 Mg Capsule PO 01/29/25 15:12 100 mg BID PRN Administration Constipation Docusate Sodium 283 mg 01/30/24 15:13 Docusate Enema 283 Mg/5 Ml Enema OK 01/29/25 15:12 DAILY PRN Constipation Duloxetine HCl 60 mg 01/31/24 09:00 02/02/24 08:30 Duloxetine 60 Mg Capsule. PO 01/30/25 08:59 60 mg DAILY GENEVIEVE Administration Enoxaparin Sodium 30 mg 01/30/24 22:00 02/02/24 08:33 Enoxaparin 30 Mg/0.3 Ml Syringe SUBCUT 01/29/25 21:59 30 mg BID@1000,2200 GENEVIEVE Administration Ferrous Sulfate 324 mg 02/04/24 09:00 Ferrous Sulfate 324 Mg Tablet. PO 02/03/25 08:59 Q48H GENEVIEVE Fluticasone Propionate 2 spray 01/30/24 15:11 Fluticasone Propionate Omaha 120 Omaha/16 Gm Bottle INTRANASAL 01/29/25 15:10 DAILY PRN allergy symptoms Furosemide 40 mg 02/03/24 08:00 Furosemide 40 Mg Tablet PO 02/06/24 07:59 DAILY.8A GENEVIEVE Hydrochlorothiazide 25 mg 01/31/24 09:00 02/02/24 08:30 Hydrochlorothiazide 25 Mg Tablet PO 01/30/25 08:59 25 mg DAILY GENEVIEVE Administration Lactulose 30 gm 01/30/24 15:13 Lactulose 20 Gm/30 Ml Udc PO 01/29/25 15:12 DAILY PRN Constipation Latanoprost 1 drops 01/31/24 22:00 02/01/24 21:07 Latanoprost 0.005% Op Soln 50 Drops/2.5 Ml Bottle EYE-BOTH 01/30/25 21:59 1 drops HS GENEVIEVE Administration Loratadine 10 mg 01/31/24 09:00 02/02/24 08:30 Loratadine 10 Mg Tablet PO 01/30/25 08:59 10 mg DAILY GENEVIEVE Administration Multivitamins 1 tab 01/31/24 09:00 02/02/24 08:30 Multivitamin 1 Tab Tablet PO 01/30/25 08:59 1 tab DAILY GENEVIEVE Administration Nystatin 1 applic 01/30/24 21:00 02/02/24 08:30 Nystatin 100,000 Unit/Gram Powder 15 Gm Bottle TOPICAL 01/29/25 20:59 1 applic BID GENEVIEVE Administration Oxycodone HCl 5 mg 01/31/24 12:42 02/01/24 21:07 Oxycodone Ir 5 Mg Tablet PO 5 mg Q4H PRN Administration Pain Scale 4 - 7 Oxycodone HCl 10 mg 01/31/24 12:42 02/02/24 05:52 Oxycodone Ir 5 Mg Tablet PO 10 mg Q4H PRN Administration Pain Scale 7 - 10 Sennosides 2 tab 01/31/24 12:00 02/01/24 16:29 Sennosides 8.6 Mg Tablet PO 01/30/25 11:59 2 tab DAILY@12 PRN Administration If no BM in 2 days Sodium Chloride 0 ml 01/30/24 15:13 Sodium Chloride 0.9 % 10 Ml Syringe IV-PUSH 01/29/25 15:12 PRN PRN Flush Assessment/Plan Assessment/Plan (1) Hip fracture, right: (2) S/P hip hemiarthroplasty: (3) Postoperative anemia due to acute blood loss: (4) Expressive aphasia: (5) Anxiety: (6) HTN (hypertension): Plan Ms. 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 -Chest x-ray suspicious of mild pulmonary edema. Start furosemide 40 mg daily for few days. Monitor intake and output. Add Daily weights. -Current pain regimen is effective, continue as ordered. -Tolerating therapy, improving. Hospitalist to assist with management of comorbid medical conditions Pain control: Limit opioids. Encourage tylenol ice and topical modalities Bowel and bladder: Bowel regimen in place. Monitor for bladder retention. Skin: Monitor operative site; no pressure ulcers on admssion Sleep: Optimize sleep wake cycle DVT prophylaxis: Lovenox during admission. Xarelto v. ASA 81 BID at discharge from IRF. Functional status: Impaired. Still needs [employer]. Will order. Discharge planning: Home in 2 weeks. I spent 16 minutes for services, including [id number] encounter with the patient, discussion of the case, plan of care, and exam; and gmesecb-ab-nzyc activities, such as reviewing pertinent mental health consultant documentation, recent therapy notes, laboratory and radiology studies, and discussion of case with care team including physician, nursing, case work aide, and therapists. More than 50 % of time was spent on patient/family counseling or coordination of care. <Statement entered by Avtar Barbosa MD - 02/03/24 09:15> I reviewed the history and the relevant portions of the chart, including current orders, allied health and mental health consultant notes, labs/imaging and plan of care as above. Documented By: Loulou Newton APRN 02/02/24 1 225 Signed By: <Electronically signed by LIVAN Newton> 02/02/24 1244 <Electronically signed by Avtar Barbosa MD> 02/03/24 0915 [facility] Work Phone: 1(520) 169-743705-13-2024 Progress note Author Trey Guerra [facility] February 02, 2024 11:55am Note Date/Time January 31, 2024 12:48 pm [facility] [address] [place] [address] Physiatry(Rehab) Progress Note Signed Patient: Moustapha Alejandra MR#: [id number] : 1945 Acct:[id number] Age/Sex: 78 / F Adm Date: 4 Loc: Room: 8X1037-3 Type: ADM IN Attending Dr: Trey Guerra MD Copies to: ~ <Loulou Newton APRN - Last Filed: 01/31/24 12:50> Date of Service: 01/31/2024 Subjective <Loulou Newton APRN - Last Filed: 01/31/24 12:50> Subjective Narrative: Ms. 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 She was independent at home after her stroke, she was working with speech therapy in the outpatient setting, she reports a slip and fall in the kitchen while cleaning up dinner. Imaging demonstrated right subcapital hip fracture and she underwent operative intervention with Dr. Serra on January 28. Today, she stable. Labs reviewed. Cleared by orthopedics, she to admit to rehabilitation unit. Patient agreeable. Interval history: Patient was seen and evaluated in her room while resting in bed. She is alert, oriented, pleasant. She has some residual expressive aphasia from an old stroke. Complains of significant right hip pain, stating it is poorly controlled. No muscle spasms. Does not seem to get comfortable in bed. Anxious about any movement involving the affected extremity. I will adjust her pain regimen. Otherwise, no issues. Vitals are stable. She is on 2 L of supplemental O2 at this time. Review of Systems <Loulou Newton APRN - Last Filed: 01/31/24 12:50> Review of Systems All other systems reviewed & are negative unless noted below or in HPI Exam <Loulou Newton APRN - Last Filed: 01/31/24 12:50> Physical Exam Vital Signs: Temp Pulse Resp BP Pulse Ox O2 Del Method O2 Flow Rate 98 F 84 16 157/82 H 94 L Nasal Cannula 2 01/31/24 06:12 01/31/24 06:12 01/31/24 06:12 01/31/24 06:12 01/31/24 06:12 01/31/24 09:09 01/31/24 09:09 Narrative: General: Awake, alert, oriented x3 HENT: Normal to inspection, normocephalic, atraumatic Eyes: PERRL, normal conjunctiva and sclera Neck: Normal ROM, normal visual inspection. Trachea midline. Cardio: Regular heart rate and rhythm Respiratory: Clear to auscultation bilaterally. Normal respiratory effort. No respiratory distress. GI: Abdomen soft, nontender, nondistended, active bowel sounds x4 quadrants Neuro: CN II-XII intact. Strength 5/5, equal bilaterally Extremities: No edema, erythema, cyanosis Psych: Mood and affect appropriate. Expressive aphasia. Objective <Loulou Newton APRN - Last Filed: 01/31/24 12:50> Labs 01/31/24 05:27 01/31/24 05:27 Labs: Laboratory Results - last 24 hr 01/31/24 05:27 Corrected WBC 7.0 Uncorrected WBC Count 7.0 RBC 3.05 L Hgb 9.3 L Hct 27.0 L MCV 88.2 MCH 30.3 MCHC 34.4 RDW 13.8 Plt Count 124 L MPV 9.3 Neut % (Auto) 77.5 Lymph % (Auto) 10.5 Bowie % (Auto) 6.0 Eos % (Auto) 5.4 Baso % (Auto) 0.6 Nucleat RBC Rel Count 0.1 Neut # (Auto) 5.4 Lymph # (Auto) 0.7 L Bowie # (Auto) 0.4 Eos # (Auto) 0.4 Baso # (Auto) 0.0 PHA Creatinine Clear 57.41 Sodium 136 Potassium 3.5 Chloride 104 Carbon Dioxide 27.6 Anion Gap 7.9 BUN 20 Creatinine 0.88 Est GFR (CKD-EPI) > 60.0 Glucose 95 Calcium 8.0 L Total Bilirubin 0.4 AST 22 ALT 10 Alkaline Phosphatase 61 Total Protein 4.6 L Albumin 2.6 L Globulin 2.0 Albumin/Globulin Ratio 1.3 Prealbumin 11.9 L Medications and Allergies Allergies and Active Meds: Allergies Iodinated Contrast Media [From Contrast Media] Allergy (Severe, Verified 01/28/24 18:13) Anaphylaxis meperidine [Demerol] Allergy (Unknown, Verified 01/28/24 18:13) Unknown Reaction neomycin Allergy (Unknown, Verified 01/28/24 18:13) Unknown Reaction Active Medications Generic Name Dose Route Start Last Admin Trade Name Freq PRN Reason Stop Dose Admin Acetaminophen 500 mg 01/30/24 15:13 Acetaminophen 500 Mg Tablet PO 01/29/25 15:12 Q4H PRN Pain Al Hydrox/Mg Hydrox/Simethicone 30 ml 01/30/24 15:13 Mag Hydrox/Al Hydrox/Simeth 30 Ml Udc PO 01/29/25 15:12 Q4H PRN Indigestion Amlodipine Besylate 5 mg 01/31/24 09:00 01/31/24 08:48 Amlodipine 5 Mg Tablet PO 01/30/25 08:59 5 mg DAILY GENEVIEVE Administration Ascorbic Acid 500 mg 01/31/24 09:00 01/31/24 08:48 Ascorbic Acid 500 Mg Tablet PO 01/30/25 08:59 500 mg DAILY GENEVIEVE Administration Aspirin 81 mg 01/31/24 09:00 01/31/24 08:48 Aspirin 81 Mg Tablet. PO 01/30/25 08:59 81 mg DAILY GENEVIEVE Administration Atorvastatin Calcium 40 mg 01/30/24 21:00 01/30/24 21:22 Atorvastatin 40 Mg Tablet PO 01/29/25 20:59 40 mg QPM GENEVIEVE Administration Bisacodyl 10 mg 01/30/24 15:13 Bisacodyl 10 Mg Supp.Rect OK 01/29/25 15:12 DAILY PRN Constipation Calcium Carbonate 1 tab 01/30/24 17:00 01/31/24 12:32 Calcium Carbonate/Vitamin D3 500 Mg/200 Unit Tablet PO 01/29/25 16:59 1 tab TID.WITH.MEALS GENEVIEVE Administration Docusate Sodium 100 mg 01/30/24 15:13 Docusate 100 Mg Capsule PO 01/29/25 15:12 BID PRN Constipation Docusate Sodium 283 mg 01/30/24 15:13 Docusate Enema 283 Mg/5 Ml Enema OK 01/29/25 15:12 DAILY PRN Constipation Duloxetine HCl 60 mg 01/31/24 09:00 01/31/24 08:48 Duloxetine 60 Mg Capsule. PO 01/30/25 08:59 60 mg DAILY GENEVIEVE Administration Enoxaparin Sodium 30 mg 01/30/24 22:00 01/31/24 08:47 Enoxaparin 30 Mg/0.3 Ml Syringe SUBCUT 01/29/25 21:59 30 mg BID@1000,2200 GENEVIEVE Administration Ferrous Sulfate 324 mg 01/30/24 21:00 01/31/24 08:48 Ferrous Sulfate 324 Mg Tablet. PO 01/29/25 20:59 324 mg BID GENEVIEVE Administration Fluticasone Propionate 2 spray 01/30/24 15:11 Fluticasone Propionate Omaha 120 Omaha/16 Gm Bottle INTRANASAL 01/29/25 15:10 DAILY PRN allergy symptoms Hydrochlorothiazide 25 mg 01/31/24 09:00 01/31/24 08:48 Hydrochlorothiazide 25 Mg Tablet PO 01/30/25 08:59 25 mg DAILY GENVEIEVE Administration Lactulose 30 gm 01/30/24 15:13 Lactulose 20 Gm/30 Ml Udc PO 01/29/25 15:12 DAILY PRN Constipation Latanoprost 1 drops 01/31/24 22:00 Latanoprost 0.005% Op Soln 50 Drops/2.5 Ml Bottle EYE-BOTH 01/30/25 21:59 HS GENEVIEVE Loratadine 10 mg 01/31/24 09:00 01/31/24 08:48 Loratadine 10 Mg Tablet PO 01/30/25 08:59 10 mg DAILY GENEVIEVE Administration Multivitamins 1 tab 01/31/24 09:00 01/31/24 08:48 Multivitamin 1 Tab Tablet PO 01/30/25 08:59 1 tab DAILY GENEVIEVE Administration Nystatin 1 applic 01/30/24 21:00 01/31/24 08:49 Nystatin 100,000 Unit/Gram Powder 15 Gm Bottle TOPICAL 01/29/25 20:59 1 applic BID GENEVIEVE Administration Oxycodone HCl 5 mg 01/31/24 12:42 Oxycodone Ir 5 Mg Tablet PO Q4HR PRN Pain Scale 4 - 7 Oxycodone HCl 10 mg 01/31/24 12:42 Oxycodone Ir 5 Mg Tablet PO Q4HR PRN Pain Scale 7 - 10 Sennosides 2 tab 01/31/24 12:00 Sennosides 8.6 Mg Tablet PO 01/30/25 11:59 DAILY@12 PRN If no BM in 2 days Sodium Chloride 0 ml 01/30/24 15:13 Sodium Chloride 0.9 % 10 Ml Syringe IV-PUSH 01/29/25 15:12 PRN PRN Flush Assessment/Plan <Loulou Newton, FAMILY INTERVENTION SPECIALIST - Last Filed: 01/31/24 12:50> Assessment/Plan (1) Hip fracture, right: (2) S/P hip hemiarthroplasty: (3) Postoperative anemia due to acute blood loss: (4) Expressive aphasia: (5) Anxiety: (6) HTN (hypertension): Plan Ms. 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 -Continue Mantador. Start oxycodone 5 or 10 mg q 4h prn.monitor for excessive sedation. Add scheduled Tylenol 3 times daily. -A.m. labs noted, stable. Continue to monitor. -Wean off of oxygen as tolerated. Hospitalist to assist with management of comorbid medical conditions Pain control: Limit opioids. Encourage tylenol ice and topical modalities Bowel and bladder: Bowel regimen in place. Monitor for bladder retention. Skin: Monitor operative site; no pressure ulcers on admssion Sleep: Optimize sleep wake cycle DVT prophylaxis: Lovenox during admission. Xarelto v. ASA 81 BID at discharge from IRF. Functional status: Impaired. Still needs [employer]. Will order. Discharge planning: Home in 2 weeks. I spent 17 minutes for services, including cgmi-de-dugc encounter with the patient, discussion of the case, plan of care, and exam; and befwspc-aj-[id number] activities, such as reviewing pertinent mental health consultant documentation, recent therapy notes, laboratory and radiology studies, and discussion of case with care team including physician, nursing, case work aide, and therapists. More than 50 % of time was spent on patient/family counseling or coordination of care. <Trey Guerra MD - Last Filed: 02/02/24 11:55> Assessment/Plan (1) Hip fracture, right: (2) S/P hip hemiarthroplasty: (3) Postoperative anemia due to acute blood loss: (4) Expressive aphasia: (5) Anxiety: (6) HTN (hypertension): Plan Ms. 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 -Continue Mantador. Start oxycodone 5 or 10 mg q 4h prn.monitor for excessive sedation. Add scheduled Tylenol 3 times daily. -A.m. labs noted, stable. Continue to monitor. -Wean off of oxygen as tolerated. Hospitalist to assist with management of comorbid medical conditions Pain control: Limit opioids. Encourage tylenol ice and topical modalities Bowel and bladder: Bowel regimen in place. Monitor for bladder retention. Skin: Monitor operative site; no pressure ulcers on admssion Sleep: Optimize sleep wake cycle DVT prophylaxis: Lovenox during admission. Xarelto v. ASA 81 BID at discharge from IRF. Functional status: Impaired. Still needs [employer]. Will order. Discharge planning: Home in 2 weeks. I spent 17 minutes for services, including doju-eo-sojj encounter with the patient, discussion of the case, plan of care, and exam; and ezghdde-ps-zfsp activities, such as reviewing pertinent mental health consultant documentation, recent therapy notes, laboratory and radiology studies, and discussion of case with care team including physician, nursing, case work aide, and therapists. More than 50 % of time was spent on patient/family counseling or coordination of care. I reviewed the history and the relevant portions of the chart, including current orders, allied health and mental health consultant notes, labs/imaging and plan of care as above. Documented By: Loulou Newton APRN 01/31/24 1 244 Signed By: <Electronically signed by LIVAN Newton> 01/31/24 1250 <Electronically signed by Trey Guerra MD> 02/02/24 4157 [facility] Work Phone: [phone]) 609-384705-12-2024 Consult note Author Azar Plaza [facility] February 01, 2024 11:23am Note Date/Time January 31, 2024 2:22p m [facility] [address] [place] [address] Hospitalist Consult Note Signed Patient: Moustapha Alejandra MR#: [id number] : 1945 Acct:[id number] Age/Sex: 78 / F Adm Date: 4 Loc: Room: [address] [place] [address] Type: ADM IN Attending Dr: Trey Guerra MD Copies to: MD aHnnah Garcia MD Lynn A Stackhouse-Roby, LIVAN Plaza MD~ HPI DATE OF CONSULTATION: 01/31/24 REQUESTING PROVIDER: Trey Guerra Consult Narrative Reason for Consult: Hypertension HPI: 78-year-old female past medical history significant for recent CVA December 20 withongoing expressive aphasia, hypertension, dyslipidemia, depression, glaucoma, allergies. Patient presented to the emergency department January 27 after sustaininga fall at home with right hip pain. Findings of right hip fracture prompted ORIF on January 28 per orthopedic services. Preop hemoglobin was 14.3 and she did have postoperative anemia but did not require transfusion. She was seen by therapy services with recommendations for inpatient rehab and subsequently transferred there January 29. Hospitalist team now consulted for ongoing managementof hypertension. Patient seen and examined. She is able to make needs known has obvious expressive aphasia. Endorses right posterior calf tenderness with palpation. Denies chest pain or palpitations. No cough, dyspnea, or pain with inspiration. Does not usually wear oxygen at home but is currently on O2 at 2 L, no prior pulmonary history per her report. Encourage aggressive incentive spirometry. No abdominal pain or indigestion, constipation or diarrhea, nausea or vomiting. No dysuria or retention. No headache or dizziness. No fevers or chills. Review of Systems Review of Systems All other systems reviewed & are negative unless noted below or in HPI FORMERLY [facility], [facility] Medical History (Updated 01/31/24 @ 14:23 by Cassandra Villalba APRN) Depression with anxiety Seasonal allergies Glaucoma Dyslipidemia Right humeral fracture Acute CVA (cerebrovascular accident) Anxiety HTN (hypertension) Family History Father Mother Social History Smoking Status: Never smoker Substance Use Type: None Meds Medications and Allergies Allergies Iodinated Contrast Media [From Contrast Media] Allergy (Severe, Verified 01/28/24 18:13) Anaphylaxis meperidine [Demerol] Allergy (Unknown, Verified 01/28/24 18:13) Unknown Reaction neomycin Allergy (Unknown, Verified 01/28/24 18:13) Unknown Reaction Home Medications amlodipine 5 mg tablet 5 mg PO DAILY 30 days #30 tabs 01/01/24 [Rx Confirmed 01/30/24] aspirin 81 mg tablet,delayed release 81 mg PO DAILY #30 tabs 01/01/24 [Rx Confirmed 01/30/24] atorvastatin 40 mg tablet 40 mg PO QPM 30 days #30 tabs 01/01/24 [Rx Confirmed 01/30/24] duloxetine 60 mg capsule,delayed release 60 mg PO DAILY 30 days #30 caps 01/01/24 [Rx Confirmed 01/30/24] fluticasone propionate 50 mcg/actuation nasal spray,suspension 2 spray intranasal DAILY PRN allergy symptoms 30 days #1 ea 01/01/24 [Rx Confirmed 01/30/24] hydrochlorothiazide 25 mg tablet 25 mg PO DAILY 30 days #30 tabs 01/01/24 [Rx Confirmed 01/30/24] latanoprost 0.005 % eye drops 1 drp Eye-Both DAILY 30 days #1 ea 01/01/24 [Rx Confirmed 01/30/24] loratadine 10 mg tablet 10 mg PO DAILY #30 tabs 01/01/24 [Rx Confirmed 01/30/24] multivitamin with folic acid 400 mcg tablet (Thera) 1 tab PO DAILY #30 tabs 01/01/24 [Rx Confirmed 01/30/24] nystatin 100,000 unit/gram topical powder (Nystop) 1 applic topical BID #15 grams 01/01/24 [Rx Confirmed 01/30/24] ascorbic acid (vitamin C) 500 mg tablet (Vitamin C) 500 mg PO DAILY #0 tabs 01/30/24 [Rx Confirmed 01/30/24] calcium carbonate 500 mg-vitamin D3 5 mcg (200 unit) tablet (Oyster Shell Calcium-Vitamin D3) 1 tab PO TID.WITH.MEALS #0 tabs 01/30/24 [Rx Confirmed 01/30/24] enoxaparin 30 mg/0.3 mL subcutaneous syringe (Lovenox) 30 mg (0.3 mL) subcut BID@1000,2200 #0 mL 01/30/24 [Rx Confirmed 01/30/24] ferrous sulfate 324 mg (65 mg iron) tablet,delayed release 324 mg PO BID #0 tabs01/30/24 [Rx Confirmed 01/30/24] hydrocodone 5 mg-acetaminophen 325 mg tablet 1 tab PO Q4H PRN Pain #0 tabs 01/30/24 [Rx Confirmed 01/30/24] Active Medications: Active Medications Generic Name Dose Route Start Last Admin Trade Name Billq PRN Reason Stop Dose Admin Acetaminophen 500 mg 01/30/24 15:13 Acetaminophen 500 Mg Tablet PO 01/29/25 15:12 Q4H PRN Pain Hydrocodone Bitart/Acetaminophen 1 tab 01/30/24 15:11 01/31/24 06:03 Hydrocodone/Acetaminophen 5-325 Mg Tablet PO 1 tab Q4H PRN Administration Pain Al Hydrox/Mg Hydrox/Simethicone 30 ml 01/30/24 15:13 Mag Hydrox/Al Hydrox/Simeth 30 Ml Udc PO 01/29/25 15:12 Q4H PRN Indigestion Amlodipine Besylate 5 mg 01/31/24 09:00 01/31/24 08:48 Amlodipine 5 Mg Tablet PO 01/30/25 08:59 5 mg DAILY GENEVIEVE Administration Ascorbic Acid 500 mg 01/31/24 09:00 01/31/24 08:48 Ascorbic Acid 500 Mg Tablet PO 01/30/25 08:59 500 mg DAILY GENEVIEVE Administration Aspirin 81 mg 01/31/24 09:00 01/31/24 08:48 Aspirin 81 Mg Tablet. PO 01/30/25 08:59 81 mg DAILY GENEVIEVE Administration Atorvastatin Calcium 40 mg 01/30/24 21:00 01/30/24 21:22 Atorvastatin 40 Mg Tablet PO 01/29/25 20:59 40 mg QPM GENEVIEVE Administration Bisacodyl 10 mg 01/30/24 15:13 Bisacodyl 10 Mg Supp.Rect OK 01/29/25 15:12 DAILY PRN Constipation Calcium Carbonate 1 tab 01/30/24 17:00 01/31/24 08:48 Calcium Carbonate/Vitamin D3 500 Mg/200 Unit Tablet PO 01/29/25 16:59 1 tab TID.WITH.MEALS GENEVIEVE Administration Docusate Sodium 100 mg 01/30/24 15:13 Docusate 100 Mg Capsule PO 01/29/25 15:12 BID PRN Constipation Docusate Sodium 283 mg 01/30/24 15:13 Docusate Enema 283 Mg/5 Ml Enema OK 01/29/25 15:12 DAILY PRN Constipation Duloxetine HCl 60 mg 01/31/24 09:00 01/31/24 08:48 Duloxetine 60 Mg Capsule. PO 01/30/25 08:59 60 mg DAILY GENEVIEVE Administration Enoxaparin Sodium 30 mg 01/30/24 22:00 01/31/24 08:47 Enoxaparin 30 Mg/0.3 Ml Syringe SUBCUT 01/29/25 21:59 30 mg BID@1000,2200 GENEVIEVE Administration Ferrous Sulfate 324 mg 01/30/24 21:00 01/31/24 08:48 Ferrous Sulfate 324 Mg Tablet. PO 01/29/25 20:59 324 mg BID GENEVIEVE Administration Fluticasone Propionate 2 spray 01/30/24 15:11 Fluticasone Propionate Omaha 120 Omaha/16 Gm Bottle INTRANASAL 01/29/25 15:10 DAILY PRN allergy symptoms Hydrochlorothiazide 25 mg 01/31/24 09:00 01/31/24 08:48 Hydrochlorothiazide 25 Mg Tablet PO 01/30/25 08:59 25 mg DAILY GENEVIEVE Administration Lactulose 30 gm 01/30/24 15:13 Lactulose 20 Gm/30 Ml Udc PO 01/29/25 15:12 DAILY PRN Constipation Latanoprost 1 drops 01/31/24 22:00 Latanoprost 0.005% Op Soln 50 Drops/2.5 Ml Bottle EYE-BOTH 01/30/25 21:59 HS GENEVIEVE Loratadine 10 mg 01/31/24 09:00 01/31/24 08:48 Loratadine 10 Mg Tablet PO 01/30/25 08:59 10 mg DAILY GENEVIEVE Administration Multivitamins 1 tab 01/31/24 09:00 01/31/24 08:48 Multivitamin 1 Tab Tablet PO 01/30/25 08:59 1 tab DAILY GENEVIEVE Administration Nystatin 1 applic 01/30/24 21:00 01/31/24 08:49 Nystatin 100,000 Unit/Gram Powder 15 Gm Bottle TOPICAL 01/29/25 20:59 1 applic BID GENEVIEVE Administration Sennosides 2 tab 01/31/24 12:00 Sennosides 8.6 Mg Tablet PO 01/30/25 11:59 DAILY@12 PRN If no BM in 2 days Sodium Chloride 0 ml 01/30/24 15:13 Sodium Chloride 0.9 % 10 Ml Syringe IV-PUSH 01/29/25 15:12 PRN PRN Flush Exam Physical Exam Vital Signs: Temp Pulse Resp BP Pulse Ox O2 Del Method O2 Flow Rate 98 F 84 16 157/82 H 94 L Nasal Cannula 2 01/31/24 06:12 01/31/24 06:12 01/31/24 06:12 01/31/24 06:12 01/31/24 06:12 01/31/24 09:09 01/31/24 09:09 Narrative: CONST- alert, in bed, no acute distress HEAD- normocephalic and atraumatic EENT- sclera nonicteric and conjunctiva nonerythemic, moist oral mucosa, pharynxclear NECK- supple, no cervical lymphadenopathy CARDIAC- RRR no abnormal heart tones PULM- diminished without wheeze or rhonchi, O2 does not wear at baseline, no accessory muscle use or cough noted ABD- S/NT, NABS, obese EXTREM- no edema BLE, some right calf posterior tenderness with palpation but nocords, enlarged right calf circumference in comparison to the left SKIN- W/D, good turgor, right hip dressing in place surgical site not seen MS- MAEx4 spontaneously with equal strength NEURO- A&Ox3, speech clear with expressive aphasia and tongue midline, equal facial symmetry PSYCH-mood and behavior appropriate Results - Hospitalist Consult Lab Results Labs: Laboratory Results - last 72 hr 01/31/24 05:27: Corrected WBC 7.0, Uncorrected WBC Count 7.0, RBC 3.05 L, Hgb 9.3 L, Hct 27.0 L, MCV 88.2, MCH 30.3, MCHC 34.4, RDW 13.8, Plt Count 124 L, MPV9.3, Neut % (Auto) 77.5, Lymph % (Auto) 10.5, Bowie % (Auto) 6.0, Eos % (Auto) 5.4, Baso % (Auto) 0.6, Nucleat RBC Rel Count 0.1, Neut # (Auto) 5.4, Lymph # (Auto) 0.7 L, Bowie # (Auto) 0.4, Eos # (Auto) 0.4, Baso # (Auto) 0.0, PHA Creatinine Clear 57.41, Sodium 136, Potassium 3.5, Chloride 104, Carbon Dioxide 27.6, Anion Gap 7.9, BUN 20, Creatinine 0.88, Est GFR (CKD-EPI) > 60.0, Glucose 95, Calcium 8.0 L, Total Bilirubin 0.4, AST 22, ALT 10, Alkaline Phosphatase 61,Total Protein 4.6 L, Albumin 2.6 L, Globulin 2.0, Albumin/Globulin Ratio 1.3, Prealbumin 11.9 L Assessment & Plan Assessment/Plan (1) S/P hip hemiarthroplasty: (2) Fall: (3) Postoperative anemia: (4) Expressive aphasia: (5) History of CVA (cerebrovascular accident): (6) HTN (hypertension): (7) Dyslipidemia: (8) Glaucoma: (9) Seasonal allergies: (10) Subcapital fracture of right hip: (11) Depression with anxiety: (12) Hypoxia: Plan Fall Right hip fracture s/p ORIF 01/29/2024 Postoperative blood loss anemia Recent CVA 12/21/2023 with ongoing expressive aphasia -Further POC per PMR team for rehabilitative therapy, pain control and bowel regimen, DVT PPx enoxaparin noting lower platelets continue to monitor -Please defer any postoperative questions/concerns to orthopedics team -Vitamin C, calcium, ferrous sulfate per Ortho preference -Preop Hgb 14.3, trend lab -Aspirin and statin for ongoing secondary stroke prevention Hypoxia, does not wear home O2 and no chronic pulmonary disorders -Wean O2 as able, spirometry strongly encouraged?afebrile no leukocytosis -Chest x-ray 01/27 reviewed nonacute -repeat CXR 01/31 Right calf tenderness and enlargement, no pitting edema -Venous Doppler negative for DVT Chronic conditions 1. Hypertension, dyslipidemia?amlodipine, HCTZ- BP reviewed and fairly controlled. Trend and adjust as indicated, pain/anxiety could be contributory 2. Depression?duloxetine 3. Glaucoma?latanoprost 4. Allergies?loratadine and nasal Flutex Documented By: Cassandra Villalba APRN 01/20 10/15 1024 Signed By: <Electronically signed by LIVAN Villalba> 01/31/24 1426 <Electronically signed by Azar Plaza MD> 02/01/24 1123 [facility] Work Phone: 1(582) 244-316605-11-2024 Progress note Author Rosemary Serra [facility] January 31, 2024 5:06pm Note Date/Time January 31, 2024 5:00p m [facility] [address] [place], [place] [id number] Orthopedic Progress Note Signed Patient: Moustapha Alejandra MR#: [id number] : 1945 Acct:[id number] Age/Sex: 78 / F Adm Date: 4 Loc: Room: [address] [place] [address] Type: ADM IN Attending Dr: Trey Guerra MD Copies to: ~ Date of Service: 01/30/2024 Subjective Subjective Interval History: Patient has been having some pain at the right hip as expected postoperatively Patient reports that pain is relatively controlled with current pain medication regimen Tolerating diet Denies fever, sweats, chills, nausea, vomiting, CP, SOB Patient has been transferred to rehab for further rehabilitation Exam Physical Exam Vital Signs: Temp Pulse Resp BP Pulse Ox O2 Del Method O2 Flow Rate 98.0 F 83 18 156/74 H 96 Nasal Cannula 1.5 01/31/24 16:10 01/31/24 16:10 01/31/24 16:10 01/31/24 16:10 01/31/24 16:10 01/31/24 16:10 01/31/24 16:10 Additional Findings Additional Findings: GENERAL Awake, alert, oriented, and in no acute distress LOWER EXTREMITY Bandage right hip is clean dry and intact without evidence of purulent drainage,cellulitis, or infection Wound vac in place right hip with no significant drainage in canister R LE clinically equal limb length and rotation postoperatively compared to L LE Negative/ resolved pain with axial load right hip Negative/ resolved pain with log roll maneuver right hip Positive ecchymosis/ hematoma right hip Positive tenderness to palpation right hip R Dorsalis pedis pulse 2+ and intact R Sensory intact to light touch distally at the tibial/ sural/ saphenous/ deep peroneal/ superficial peroneal nerve distributions R Motor intact EHL/ FHL/ ankle dorsiflexion/ ankle plantarflexion/ quadriceps firing Objective Labs Labs: Laboratory Results - last 24 hr 01/31/24 05:27 Corrected WBC 7.0 Uncorrected WBC Count 7.0 RBC 3.05 L Hgb 9.3 L Hct 27.0 L MCV 88.2 MCH 30.3 MCHC 34.4 RDW 13.8 Plt Count 124 L MPV 9.3 Neut % (Auto) 77.5 Lymph % (Auto) 10.5 Bowie % (Auto) 6.0 Eos % (Auto) 5.4 Baso % (Auto) 0.6 Nucleat RBC Rel Count 0.1 Neut # (Auto) 5.4 Lymph # (Auto) 0.7 L Bowie # (Auto) 0.4 Eos # (Auto) 0.4 Baso # (Auto) 0.0 PHA Creatinine Clear 57.41 Sodium 136 Potassium 3.5 Chloride 104 Carbon Dioxide 27.6 Anion Gap 7.9 BUN 20 Creatinine 0.88 Est GFR (CKD-EPI) > 60.0 Glucose 95 Calcium 8.0 L Total Bilirubin 0.4 AST 22 ALT 10 Alkaline Phosphatase 61 Total Protein 4.6 L Albumin 2.6 L Globulin 2.0 Albumin/Globulin Ratio 1.3 Prealbumin 11.9 L Assessment / Plan Assessment and plan (1) S/P hip hemiarthroplasty: Code(s): Z96.649 - Presence of unspecified artificial hip joint (2) Hip fracture, right: Code(s): S72.001A - Fracture of unspecified part of neck of right femur, initial encounter for closed fracture (3) History of CVA (cerebrovascular accident): Code(s): Z86.73 - Personal history of transient ischemic attack (TIA), and cerebral infarction without residual deficits Plan 78 year old woman POD 1 status post right hip cemented hemiarthroplasty (history mechanical fall from standing height with displaced Garden 4 femoral neck fracture) - Patient and family were counseled preoperatively that surgical treatment does carry certain additional risks including but not limited to: infection, charissa- prosthetic fracture, and implant dislocation. In general, despite surgical treatment, patients can expect to go down one level of function (not increase level of function), meaning that if the patient was already a limited household ambulator, she may be largely bed bound (even despite surgical treatment). Hopefully, we may maintain the patient's current level of ambulatory status withoperative treatment. - Medical comorbidities and management per the medical team - Nutrition support - WBAT RLE with anterior hip dislocation precautions - Pain control in the interim - Incentive spirometry - DVT prophylaxis: SCDs in the interim. Patient on chemical prophylaxis post-operatively with Lovenox - PT/OT post-operatively for mobilization and rehabilitation as able - Iron supplementation - Patient has sustained an osteoporotic fragility fracture at the right hip, andwould benefit from further evaluation and coordination for bone strengthening medications such as Forteo/ Tymlos to increase bony density and decrease the risk of future osteoporotic fragility fractures. In the interim, patient was counseled on bone healing protocol including smoking cessation/ avoidance of nicotine products, appropriate weight bearing restrictions and limitations, and vitamin supplementation to aid in bone and fracture healing/ strengthening. Patient was counseled to take: 1) Vitamin C 500 mg PO Q daily 2) Calcium 500-600 mg/ Vitamin D 200-400 Units PO Q TID - Patient currently stable from orthopedic standpoint Billing Billing Codes (IF APPLICABLE) List of Applicable Codes for Billin Documented By: Rosemary Serra MD 01/30/24 165 9 Signed By: <Electronically signed by Rosemary Serra MD> 01/31/24 1706 [facility] Work Phone: 1(550) 683-289105-11-2024 Progress note Author Rosemary Serra [facility] January 31, 2024 4:59pm Note Date/Time January 31, 2024 4:37p m [facility] [address] [place] [address] Orthopedic Progress Note Signed Patient: Moustapha Alejandra MR#: [id number] : 1945 Acct:[id number] Age/Sex: 78 / F Adm Date: 4 Loc: Room: 2F0997-3 Type: ADM IN Attending Dr: Trey Guerra MD Copies to: ~ Date of Service: 01/31/2024 Subjective Subjective Interval History: Patient has been having some pain at the right hip as expected postoperatively Patient reports that pain is relatively controlled with current pain medication regimen Tolerating diet Denies fever, sweats, chills, nausea, vomiting, CP, SOB Exam Physical Exam Vital Signs: Temp Pulse Resp BP Pulse Ox O2 Del Method O2 Flow Rate 98.0 F 83 18 156/74 H 96 Nasal Cannula 1.5 01/31/24 16:10 01/31/24 16:10 01/31/24 16:10 01/31/24 16:10 01/31/24 16:10 01/31/24 16:10 01/31/24 16:10 Additional Findings Additional Findings: GENERAL Awake, alert, oriented, and in no acute distress LOWER EXTREMITY Bandage right hip is clean dry and intact without evidence of purulent drainage,cellulitis, or infection Wound vac in place right hip with no significant drainage in cannister R LE clinically equal limb length and rotation postoperatively compared to L LE Negative/ resolved pain with axial load right hip Negative/ resolved pain with log roll maneuver right hip Positive ecchymosis/ hematoma right hip Positive tenderness to palpation right hip R Dorsalis pedis pulse 2+ and intact R Sensory intact to light touch distally at the tibial/ sural/ saphenous/ deep peroneal/ superficial peroneal nerve distributions R Motor intact EHL/ FHL/ ankle dorsiflexion/ ankle plantarflexion/ quadriceps firing Objective Labs Labs: Laboratory Results - last 24 hr 01/31/24 05:27 Corrected WBC 7.0 Uncorrected WBC Count 7.0 RBC 3.05 L Hgb 9.3 L Hct 27.0 L MCV 88.2 MCH 30.3 MCHC 34.4 RDW 13.8 Plt Count 124 L MPV 9.3 Neut % (Auto) 77.5 Lymph % (Auto) 10.5 Bowie % (Auto) 6.0 Eos % (Auto) 5.4 Baso % (Auto) 0.6 Nucleat RBC Rel Count 0.1 Neut # (Auto) 5.4 Lymph # (Auto) 0.7 L Bowie # (Auto) 0.4 Eos # (Auto) 0.4 Baso # (Auto) 0.0 PHA Creatinine Clear 57.41 Sodium 136 Potassium 3.5 Chloride 104 Carbon Dioxide 27.6 Anion Gap 7.9 BUN 20 Creatinine 0.88 Est GFR (CKD-EPI) > 60.0 Glucose 95 Calcium 8.0 L Total Bilirubin 0.4 AST 22 ALT 10 Alkaline Phosphatase 61 Total Protein 4.6 L Albumin 2.6 L Globulin 2.0 Albumin/Globulin Ratio 1.3 Prealbumin 11.9 L Assessment / Plan Assessment and plan (1) S/P hip hemiarthroplasty: Code(s): Z96.649 - Presence of unspecified artificial hip joint (2) Hip fracture, right: Code(s): S72.001A - Fracture of unspecified part of neck of right femur, initial encounter for closed fracture (3) History of CVA (cerebrovascular accident): Code(s): Z86.73 - Personal history of transient ischemic attack (TIA), and cerebral infarction without residual deficits Plan 78 year old woman POD 2 status post right hip cemented hemiarthroplasty (history mechanical fall from standing height with displaced Garden 4 femoral neck fracture) - Patient and family were counseled preoperatively that surgical treatment does carry certain additional risks including but not limited to: infection, charissa- prosthetic fracture, and implant dislocation. In general, despite surgical treatment, patients can expect to go down one level of function (not increase level of function), meaning that if the patient was already a limited household ambulator, she may be largely bed bound (even despite surgical treatment). Hopefully, we may maintain the patient's current level of ambulatory status withoperative treatment. - Medical comorbidities and management per the medical team - Nutrition support - WBAT RLE with anterior hip dislocation precautions - Pain control in the interim - Incentive spirometry - DVT prophylaxis: SCDs in the interim. Patient on chemical prophylaxis post-operatively with Lovenox - PT/OT post-operatively for mobilization and rehabilitation as able - Iron supplementation - Patient has sustained an osteoporotic fragility fracture at the right hip, andwould benefit from further evaluation and coordination for bone strengthening medications such as Forteo/ Tymlos to increase bony density and decrease the risk of future osteoporotic fragility fractures. In the interim, patient was counseled on bone healing protocol including smoking cessation/ avoidance of nicotine products, appropriate weight bearing restrictions and limitations, and vitamin supplementation to aid in bone and fracture healing/ strengthening. Patient was counseled to take: 1) Vitamin C 500 mg PO Q daily 2) Calcium 500-600 mg/ Vitamin D 200-400 Units PO Q TID - Patient currently stable from orthopedic standpoint Billing Billing Codes (IF APPLICABLE) List of Applicable Codes for Billin postop Documented By: Rosemary Serra MD 01/31/24 162 6 Signed By: <Electronically signed by Rosemary Serra MD> 01/31/24 6236 [facility] Work Phone: 1(261) 507-777205-10-2024 History and physical note Author Trey Guerra [facility] January 30, 2024 9:19pm Note Date/Time January 30, 2024 1:22p m [facility] [address] [place] [address] Physiatry (Rehab) H&P Signed Patient: Moustapha Alejandra MR#: [id number] : 1945 Acct:[id number] Age/Sex: 78 / F Adm Date: 4 Loc: Room: [address] [place] [address] Type: ADM IN Attending Dr: Trey Guerra MD Copies to: MD Hannah Garcia MD~ Date of Service: 01/30/2024 HPI The patient was seen and examined on: 01/30/24 Etiologic Diagnosis/Impairment Group: Hip fracture Chief complaint: pain; weakness History of Present Illness: Ms. 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 She was independent at home after her stroke, she was working with speech therapy in the outpatient setting, she reports a slip and fall in the kitchen while cleaning up dinner. Imaging demonstrated right subcapital hip fracture and she underwent operative intervention with Dr. Serra on January 28. Today, she stable. Labs reviewed. Cleared by orthopedics, she to admit to rehabilitation unit. Patient agreeable. FORMERLY [facility], [facility] Medical History Right humeral fracture Acute CVA (cerebrovascular accident) Anxiety HTN (hypertension) Family History Father Mother Social History Smoking Status: Never smoker Substance Use Type: None Review of Systems Review of Systems All other systems reviewed & are negative unless noted below or in HPI Meds Medications and Allergies Allergies Iodinated Contrast Media [From Contrast Media] Allergy (Severe, Verified 01/28/24 18:13) Anaphylaxis meperidine [Demerol] Allergy (Unknown, Verified 01/28/24 18:13) Unknown Reaction neomycin Allergy (Unknown, Verified 01/28/24 18:13) Unknown Reaction Home and Active Meds: Home Medications acetaminophen 500 mg tablet 500 mg PO Q4H PRN Pain #60 tabs 01/01/24 [Rx Confirmed 01/28/24] amlodipine 5 mg tablet 5 mg PO DAILY 30 days #30 tabs 01/01/24 [Rx Confirmed 01/28/24] aspirin 81 mg tablet,delayed release 81 mg PO DAILY #30 tabs 01/01/24 [Rx Confirmed 01/28/24] atorvastatin 40 mg tablet 40 mg PO QPM 30 days #30 tabs 01/01/24 [Rx Confirmed 01/28/24] duloxetine 60 mg capsule,delayed release 60 mg PO DAILY 30 days #30 caps 01/01/24 [Rx Confirmed 01/28/24] fluticasone propionate 50 mcg/actuation nasal spray,suspension 2 spray intranasal DAILY PRN allergy symptoms 30 days #1 ea 01/01/24 [Rx Confirmed 01/28/24] hydrochlorothiazide 25 mg tablet 25 mg PO DAILY 30 days #30 tabs 01/01/24 [Rx Confirmed 01/28/24] latanoprost 0.005 % eye drops 1 drp Eye-Both DAILY 30 days #1 ea 01/01/24 [Rx Confirmed 01/28/24] loratadine 10 mg tablet 10 mg PO DAILY #30 tabs 01/01/24 [Rx Confirmed 01/28/24] multivitamin with folic acid 400 mcg tablet (Thera) 1 tab PO DAILY #30 tabs 01/01/24 [Rx Confirmed 01/28/24] nystatin 100,000 unit/gram topical powder (Nystop) 1 applic topical BID #15 grams 01/01/24 [Rx Confirmed 01/28/24] ascorbic acid (vitamin C) 500 mg tablet (Vitamin C) 500 mg PO DAILY #0 tabs 01/30/24 [Rx] calcium carbonate 500 mg-vitamin D3 5 mcg (200 unit) tablet (Oyster Shell Calcium-Vitamin D3) 1 tab PO TID.WITH.MEALS #0 tabs 01/30/24 [Rx] enoxaparin 30 mg/0.3 mL subcutaneous syringe (Lovenox) 30 mg (0.3 mL) subcut BID@1000,2200 #0 mL 01/30/24 [Rx] ferrous sulfate 324 mg (65 mg iron) tablet,delayed release 324 mg PO BID #0 tabs 01/30/24 [Rx] hydrocodone 5 mg-acetaminophen 325 mg tablet 1 tab PO Q4H PRN Pain #0 tabs 01/30/24 [Rx] Exam Physical Exam Narrative: NAD Regular rate and rhythm Nonlabored breathing Abdomen soft Oriented, has some word finding difficulty/expressive aphasia Neurologic exam otherwise nonfocal Right lower extremity limited by pain Results - Phys. Rehab Additional Results Results Comment: I reviewed clinical lab tests, radiology reports and obtained and summated medical records and have ordered follow up lab tests and imaging studies as needed for rehabilitation care. Individualized Plan of Care Individualized Plan of Care Plan of Care: Individualized Overall Plan of Care: Admit Date/Time: January 30, 2024 Expected LOS: 2 weeks Expected Discharge Destination: Home Rehabilitation [facility]: 05.02 Primary Diagnosis: Right hip fracture; recent stroke To have patient become more independent and to return home. Medical/ Functional Prognosis: Good Anticipated Functional Outcomes/Goals and Interventions: 1.Therapy Functional Outcome/Goal: Anticipate independent bed mobility Anticipated interventions: Physician management, PT, OT, [employer], , Dietitian, Rehab Nursing, Case management 2. Therapy Functional Outcome/Goal: Anticipate independent transfers Anticipated interventions: Physician management, PT, OT, [employer], Case management, Dietitian, Rehab Nursing 3. Therapy Functional Outcome/Goal: Anticipate independent ambulation Anticipated interventions: Physician management, PT, OT, [employer] Case management, Dietitian, Rehab Nursing 4.Therapy Functional Outcome/Goal: Anticipate independent functional communication Anticipated interventions: Physician management, PT, OT, [employer], Case management, Dietitian, Rehab Nursing 5.Therapy Functional Outcome/Goal: Anticipate pain < 4/10 Anticipated interventions: Physician management, PT, OT, [employer], Case management, Dietitian, Rehab Nursing Required Therapy PT: 1 hour per day at least 5 days per week with additional therapy on as needed basis. Comments: PT to improve pt's strength, endurance, bed mobility, transfers (sit-stand), standing balance, gait quality on level surfaces and stairs, coordination and functional ADL skills. Will also work to improve pt's safety awareness during transfers and ambulation. OT: 1 hour per day at least 5 days per week with additional therapy on as needed basis. Comments: OT for basic ADL re-training (bathing, dressing, toileting, continence, grooming, feeding, transferring), to increase activity tolerance and functional mobility and to evaluate for adaptive and assistive devices. Will work to improve pt's endurance and educate pt on fall prevention and energy conservation techniques-pacing strategies and proper breathing techniques during functional tasks. Speech/Language - 1 hour per day at least 5 days per week with additional therapy on as needed basis. Comments: [employer] to evaluate and treat patient?s cognition, language and communication skills, assess swallow function. Other: Dietitian, Rehab nursing, Wound, P&O, Neuropsychology as needed RATIONALE FOR IRF ADMISSION: Patient has both medical and functional complexities that require 24 hour daily monitoring and intervention from Executive Compensation Analyst as well as other consulting physicians including internal medicine as well as 24 hour daily software quality assurance engineer nursing - for medical safe / optimal management. Patient requires interdisciplinary therapy team rehabilitation care including OT, PT, [employer], SW, Psychology, Rehab Nursing, requires and can tolerate at least 3 hours of daily OT and PT therapy at least 5 days weekly. The following medical conditions significantly impact the rehabilitation process and are being addressed daily and can not be managed at home or in a lesser intense medical setting: Refer to above problem oriented plan of care Assessment/Plan (1) Hip fracture, right: (2) S/P hip hemiarthroplasty: (3) Postoperative anemia due to acute blood loss: (4) Expressive aphasia: (5) Anxiety: (6) HTN (hypertension): Plan Ms. 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 -Therapy as ordered, including [employer] - Continue secondary stroke prevention - Continue home medications ordered - Trend hemoglobin Hospitalist to assist with management of comorbid medical conditions Pain control: Limit opioids. Encourage tylenol ice and topical modalities Bowel and bladder: Bowel regimen in place. Monitor for bladder retention. Skin: Monitor operative site; no pressure ulcers on admssion Sleep: Optimize sleep wake cycle DVT prophylaxis: Lovenox during admission. Xarelto v. ASA 81 BID at discharge from IRF. Functional status: Impaired. Still needs [employer]. Will order. Discharge planning: Home in 2 weeks. I completed a substantive portion of this encounter, the medical decision making portion of this note in its entirety, including Allied health note review, nursing note review, mental health consultant note review, discussion with nursing and case management, and more than 50% of my time was spent on counseling and coordination of care, time spent 90 minutes Patient was personally seen by me, Dr. Guerra, on the day of encounter, within 24 hours of rehab admission, reviewed the history and the relevant portions of the chart, including current orders, allied health and mental health consultant notes, labs/imaging and performed bourgeois elements of exam and I formulated the plan of care and facilitated the medical decision making. Documented By: Trey Guerra MD 01/30/24 1321 Signed By: <Electronically signed by Trey Guerra MD> 01/30/24 1948 [facility] Work Phone: 1(233) 127-994905-10-2024 Consult note Author Trey Guerra [facility] January 30, 2024 1:28pm Note Date/Time January 30, 2024 11:10 am [facility] [address] [place] [address] Physiatry (Rehab) Consult Note Signed Patient: Moustapha Alejandra MR#: [id number] : 1945 Acct:[id number] Age/Sex: 78 / F Adm Date: 4 Loc: Room: [address] [place] [address] Type: ADM IN Attending Dr: Azar Plaza MD Copies to: Howard Valentin DO, RES MD Hannah Garcia MD Mazhar Rahman, MD~ Etiologic Dx/Impairment Group Narrative Narrative: Hip fracture HPI Consult Date: 01/30/24 Requesting Physician: Azar Plaza MD Primary Care Provider: Hannah Gruber MD Consult Narrative Reason for consult: Rehab eval/postacute care needs HPI: Ms. Alejandra is a 78 year old female with past medical history of HTN, HLD, CVA (12/21/23) with continued expressive aphasia who presented to the ER after fall with right hip pain. Patient was admitted for right-sided subcapital femoral fracture. 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 Patient subsequently had a right hip hemiarthroplasty on 01/29/2024. Overall patient tolerated procedure well with some anemia postsurgery however overall uncomplicated. Patient is only requiring p.o. opiates at this point for pain management. At her baseline patient lives in a ranch style home with her that has approximately 2 steps into it. 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 She states that she was ambulating independently without assistive devices for hospital stay. She did report falling about 6 months ago while she was in [place] though. She denies being on any supplemental oxygen at home. She was working with outpatient [employer] prior to hospital stay secondary to her expressive aphasia from recent CVA. Patient has been evaluated by PT/OT and they are recommending inpatient rehab today. Patient was min-mod assist during evaluations and able to ambulate with a rolling walker about 5 feet. This is a decrease from her baseline as stated above. Her personal goal of therapy is to get back to her baseline and being able to be independent especially with ambulation. [employer] evaluated patient and recommended no therapy at this time. Patient was seen and examined today laying in bed. She states that overall she is feeling all right and recovering well from the surgery. She states that she is breathing all right and is tolerating weaning off the oxygen currently. She denies any other acute complaints or concerns at this time. Review of Systems Review of Systems All other systems reviewed & are negative unless noted below or in HPI Review of systems: A 10-point review of systems was performed and was negative unless otherwise noted in HPI. FORMERLY [facility], [facility] Medical History Right humeral fracture Acute CVA (cerebrovascular accident) Anxiety HTN (hypertension) Family History Father Mother Social History Smoking Status: Never smoker Substance Use Type: None Meds Medications and Allergies Allergies Iodinated Contrast Media [From Contrast Media] Allergy (Severe, Verified 01/28/24 18:13) Anaphylaxis meperidine [Demerol] Allergy (Unknown, Verified 01/28/24 18:13) Unknown Reaction neomycin Allergy (Unknown, Verified 01/28/24 18:13) Unknown Reaction Home Medications acetaminophen 500 mg tablet 500 mg PO Q4H PRN Pain #60 tabs 01/01/24 [Rx Confirmed 01/28/24] amlodipine 5 mg tablet 5 mg PO DAILY 30 days #30 tabs 01/01/24 [Rx Confirmed 01/28/24] aspirin 81 mg tablet,delayed release 81 mg PO DAILY #30 tabs 01/01/24 [Rx Confirmed 01/28/24] atorvastatin 40 mg tablet 40 mg PO QPM 30 days #30 tabs 01/01/24 [Rx Confirmed 01/28/24] duloxetine 60 mg capsule,delayed release 60 mg PO DAILY 30 days #30 caps 01/01/24 [Rx Confirmed 01/28/24] fluticasone propionate 50 mcg/actuation nasal spray,suspension 2 spray intranasal DAILY PRN allergy symptoms 30 days #1 ea 01/01/24 [Rx Confirmed 01/28/24] hydrochlorothiazide 25 mg tablet 25 mg PO DAILY 30 days #30 tabs 01/01/24 [Rx Confirmed 01/28/24] latanoprost 0.005 % eye drops 1 drp Eye-Both DAILY 30 days #1 ea 01/01/24 [Rx Confirmed 01/28/24] loratadine 10 mg tablet 10 mg PO DAILY #30 tabs 01/01/24 [Rx Confirmed 01/28/24] multivitamin with folic acid 400 mcg tablet (Thera) 1 tab PO DAILY #30 tabs 01/01/24 [Rx Confirmed 01/28/24] nystatin 100,000 unit/gram topical powder (Nystop) 1 applic topical BID #15 grams 01/01/24 [Rx Confirmed 01/28/24] ascorbic acid (vitamin C) 500 mg tablet (Vitamin C) 500 mg PO DAILY #0 tabs 01/30/24 [Rx] calcium carbonate 500 mg-vitamin D3 5 mcg (200 unit) tablet (Oyster Shell Calcium-Vitamin D3) 1 tab PO TID.WITH.MEALS #0 tabs 01/30/24 [Rx] enoxaparin 30 mg/0.3 mL subcutaneous syringe (Lovenox) 30 mg (0.3 mL) subcut BID@1000,2200 #0 mL 01/30/24 [Rx] ferrous sulfate 324 mg (65 mg iron) tablet,delayed release 324 mg PO BID #0 tabs 01/30/24 [Rx] hydrocodone 5 mg-acetaminophen 325 mg tablet 1 tab PO Q4H PRN Pain #0 tabs 01/30/24 [Rx] Exam Physical Exam Vital Signs: Temp Pulse Resp BP Pulse Ox O2 Del Method O2 Flow Rate 98.2 F 99 18 150/77 H 94 L Nasal Cannula 3 01/30/24 08:00 01/30/24 10:47 01/30/24 10:47 01/30/24 10:47 01/30/24 10:47 01/30/24 10:47 01/30/24 10:47 Narrative: General -awake, alert, oriented ?3, not in acute distress, lying in upright position Eyes - clear sclera and conjunctiva, extraocular eye movements grossly intact, PERRLA Cardiovascular - regular rate and rhythm with no murmurs, rubs or gallops Pulmonary - CTA b/l without RRW Gastrointestinal - abdomen is soft, nondistended, nontender, normoactive bowel sounds, there is no guarding, rebound or rigidity Upper Extremities - no edema, clubbing or cyanosis Lower Extremities -1+ pitting edema bilateral lower extremities worse on right lower extremity, no clubbing or cyanosis. There is a intact dressing on right lateral hip without any surrounding erythema, redness or warmth. Neurological -no focal neurological deficit noted, CN II-XII grossly intact, patient does struggle to find words throughout exam which is likely consistent with her expressive dysphagia from her recent CVA Musculoskeletal - 1/5 muscle strength in right lower extremity compared to 5/5 muscle strength and all other extremities Results - Phys. Rehab Labs Labs: Laboratory Results - last 24 hr 01/30/24 04:30 Corrected WBC 11.4 Uncorrected WBC Count 11.4 RBC 3.32 L Hgb 9.9 L Hct 29.3 L D MCV 88.2 MCH 29.9 MCHC 34.0 RDW 13.7 Plt Count 144 L MPV 9.2 Neut % (Auto) 91.5 Lymph % (Auto) 4.0 Bowie % (Auto) 4.3 Eos % (Auto) 0.0 Baso % (Auto) 0.2 Nucleat RBC Rel Count 0.0 Neut # (Auto) 10.5 H Lymph # (Auto) 0.5 L Bowie # (Auto) 0.5 Eos # (Auto) 0.0 Baso # (Auto) 0.0 PHA Creatinine Clear 56.18 Sodium 134 L Potassium 3.7 Chloride 104 Carbon Dioxide 27.9 Anion Gap 5.8 L BUN 17 Creatinine 0.87 Est GFR (CKD-EPI) > 60.0 Glucose 129 H Calcium 8.0 L Total Bilirubin 0.4 AST 19 ALT 13 Alkaline Phosphatase 60 Total Protein 5.0 L Albumin 2.8 L Globulin 2.2 Albumin/Globulin Ratio 1.3 Additional Results Results Comment: I reviewed clinical lab tests, radiology reports and obtained and summated medical records and have ordered follow up lab tests and imaging studies as needed for rehabilitation care. Assessment/Plan (1) Subcapital fracture of right hip: (2) Expressive aphasia: (3) HTN (hypertension): Plan Ms. Alejandra is a 78 year old female with past medical history of HTN, HLD, CVA (12/21/23) with continued expressive aphasia who presented to the ER after fall with right hip pain. Patient was admitted for right-sided subcapital femoral fracture. Pt has new and continued impaired mobility and impaired independence with ADLs and IADLs requiring PT/OT/SUPERVISOR ROVING DEPARTMENT 5-7 days/week 3 hours/day to maximize safety and independence with functional ability and self-care. Primary Rehabilitation Diagnosis: Right-sided subcapital femoral fracture status post right hip hemiarthroplasty on 01/29/2024 Patient is appropriate for acute inpatient rehab facility once medically stable per primary service and consultants. The patient has functional deficits requiring both active and ongoing therapeutic intervention of 3 disciplines of therapy, physical therapy/Occupational Therapy +/- speech therapy. Patient has worked appropriately with multiple disciplines of therapy on acute care, and demonstrates ability to tolerate and participate and make reasonable gains with at least a 15 hour/week inpatient rehabilitation program. Due to medical complexity as noted, rehabilitation physician supervision is both reasonable and necessary, including [id number] visits at least 3 days/week with the need to treat, manage and modify course of treatment, including participating in at least once weekly interdisciplinary team conferences. The patient requires multidisciplinary rehabilitation treatment including rehabilitation physician at least 3 times per week, 24-hour rehabilitation nursing, physical occupational therapy, plus/minus speech-language pathology, rehabilitation case management, nutrition services, plus minus rehabilitation psychology. This case cannot be best/most appropriately managed at a lower level of care. Estimated length of rehabilitation stay: 14 Days Prior Level of Function: IND Expected functional status at discharge from rehab: Self-care (ADLs) : Independent Bed Mobility/Transfers: Independent Ambulation: Independent There is a reasonable plan in place for discharge to the community. Overall prognosis is good to make functional gains that would make substantial difference in the eventual discharge setting. Patient was personally seen by me on the day of encounter, reviewed the history and performed bourgeois elements of exam and formulated the plan of care and confirmed the resident physician note, as above Still has needs with speech therapy including word finding difficulty/expressive aphasia, from recent stroke. This can be evaluated on rehab admission as well. Can admit today 01/29, if cleared by orthopedics. Documented By: Trey Guerra MD 01/30/24 1059 Signed By: <Electronically signed by Trey Guerra MD> 01/30/24 1328 <Electronically signed by DO ORLIN Valentin> 01/30/24 1111 [facility] Work Phone: 1(130) 258-370905-10-2024 Progress note Author Azar Plaza [facility] January 30, 2024 9:42am Note Date/Time January 30, 2024 9:42a m [facility] [address] [place] [address] Hospitalist Progress Note Signed Patient: Moustapha Alejandra MR#: [id number] : 1945 Acct:[id number] Age/Sex: 78 / F Adm Date: 4 Loc: Room: [address] [place] [address] Type: ADM IN Attending Dr: Azar Plaza MD Copies to: ~ Date of Service: 01/30/2024 Subjective Subjective Narrative: Patient examined at bedside currently denies any complaint. Continues to have expressive aphasia but denies having pain. Yesterday she underwent ORIF for right hip fracture without any complication. Exam Physical Exam Vital Signs: Temp Pulse Resp BP Pulse Ox O2 Del Method O2 Flow Rate 98.2 F 69 18 118/56 L 97 Nasal Cannula 2 01/30/24 08:00 01/30/24 08:00 01/30/24 08:00 01/30/24 08:00 01/30/24 08:00 01/30/24 08:00 01/30/24 08:00 Const Orientation: alert, awake and oriented x3 Other: Expressive aphasia but able to communicate. Resp Effort & Inspection: normal respiratory effort and able to speak in complete sentences Auscultation: no rales, no rhonchi and no wheezes Cardio Rate: regular rate Rhythm: regular rhythm Heart Sounds: S1 normal and S2 normal GI Palpation: soft, not firm, no guarding and nontender Neuro General: patient alert, patient awake, patient oriented x3, moves all extremities and no focal motor deficits Cranial Nerves: CN's II-XII intact bilaterally Cognition: normal cognition Speech: expressive aphasia Motor: muscle tone normal throughout and strength 5/5 throughout Extrem General: no clubbing, cyanosis or edema and no calf tenderness Objective Lab Results 01/30/24 04:30 01/30/24 04:30 Microbiology Results Microbiology 01/28/24 20:45 Urine - Clean-Voided Midstream Urine Culture - Preliminary >100,000 colonies/ml mixed bacterial skin contaminants 1 Day Meds Allergies and Active Meds Allergies Iodinated Contrast Media [From Contrast Media] Allergy (Severe, Verified 01/28/24 18:13) Anaphylaxis meperidine [Demerol] Allergy (Unknown, Verified 01/28/24 18:13) Unknown Reaction neomycin Allergy (Unknown, Verified 01/28/24 18:13) Unknown Reaction Active Meds: Active Medications Generic Name Dose Route Start Last Admin Trade Name Freq PRN Reason Stop Dose Admin Acetaminophen 1,000 mg 01/28/24 23:31 Acetaminophen 500 Mg Tablet PO 01/27/25 23:30 Q8H PRN Fever or Pain Hydrocodone Bitart/Acetaminophen 1 tab 01/28/24 23:31 Hydrocodone/Acetaminophen 5-325 Mg Tablet PO Q4H PRN Pain Hydrocodone Bitart/Acetaminophen 2 tab 01/28/24 23:31 01/30/24 05:59 Hydrocodone/Acetaminophen 5-325 Mg Tablet PO 2 tab Q4H PRN Administration Pain Amlodipine Besylate 5 mg 01/29/24 09:00 01/30/24 08:08 Amlodipine 5 Mg Tablet PO 01/28/25 08:59 5 mg DAILY GENEVIEVE Administration Ascorbic Acid 500 mg 01/29/24 09:00 01/30/24 08:07 Ascorbic Acid 500 Mg Tablet PO 01/28/25 08:59 500 mg DAILY GENEVIEVE Administration Aspirin 81 mg 01/29/24 09:00 01/30/24 08:07 Aspirin 81 Mg Tablet. PO 01/28/25 08:59 81 mg DAILY GENEVIEVE Administration Atorvastatin Calcium 40 mg 01/29/24 21:00 01/29/24 20:54 Atorvastatin 40 Mg Tablet PO 01/28/25 20:59 40 mg QPM GENEVIEVE Administration Calcium Carbonate 1 tab 01/29/24 08:00 01/30/24 08:07 Calcium Carbonate/Vitamin D3 500 Mg/200 Unit Tablet PO 01/28/25 07:59 1 tab TID.WITH.MEALS GENEVIEVE Administration Cyclobenzaprine HCl 5 mg 01/28/24 23:31 Cyclobenzaprine 5 Mg Tablet PO 01/27/25 23:30 Q8H PRN Muscle Spasm Docusate Sodium 100 mg 01/29/24 21:00 01/30/24 08:07 Docusate 100 Mg Capsule PO 01/28/25 20:59 100 mg BID GENEVIEVE Administration Duloxetine HCl 60 mg 01/29/24 09:00 01/30/24 08:07 Duloxetine 60 Mg Capsule. PO 01/28/25 08:59 60 mg DAILY GENEVIEVE Administration Enoxaparin Sodium 30 mg 01/30/24 10:00 Enoxaparin 30 Mg/0.3 Ml Syringe SUBCUT 01/29/25 09:59 BID@1000,2200 GENEVIEVE Famotidine 20 mg 01/29/24 09:00 01/30/24 08:07 Famotidine 20 Mg Tablet PO 01/28/25 08:59 20 mg BID GENEVIEVE Administration Ferrous Sulfate 324 mg 01/29/24 09:00 01/30/24 08:07 Ferrous Sulfate 324 Mg Tablet. PO 01/28/25 08:59 324 mg BID GENEVIEVE Administration Hydromorphone HCl 0.5 mg 01/28/24 23:31 01/29/24 07:45 Hydromorphone 0.5 Mg/0.5 Ml Syringe IV-PUSH 0.5 mg Q2H PRN Administration Pain Scale 1 - 3 Hydromorphone HCl 1 mg 01/28/24 23:31 01/29/24 04:14 Hydromorphone 1 Mg/Ml Syringe IV-PUSH 1 mg Q2H PRN Administration Pain Scale 4 - 6 Sodium Chloride 1,000 mls @ 80 mls/hr 01/29/24 00:05 01/30/24 03:33 0.9% Sodium Chloride 1,000 Ml IV 01/28/25 00:04 80 mls/hr .[id number] GENEVIEVE Administration Ceftriaxone Sodium 1 gm in 50 mls @ 100 mls/hr 01/29/24 09:15 01/29/24 09:18 Rocephin IV 100 mls/hr Q24H GENEVIEVE Administration Lactated Ringer's 1,000 mls @ 20 mls/hr 01/29/24 14:30 01/29/24 14:25 Lactated Ringers IV 01/28/25 14:29 20 mls/hr .Q24H GENEVIEVE Infusion Latanoprost 1 drops 01/29/24 10:00 01/29/24 11:59 Latanoprost 0.005% Op Soln 50 Drops/2.5 Ml Bottle EYE-BOTH 01/28/25 09:59 Not Given DAILY GENEVIEVE Magnesium Hydroxide 30 ml 01/29/24 14:17 Magnesium Hydroxide Susp 30 Ml Udc PO 01/28/25 14:16 BID PRN Constipation Morphine Sulfate 2 mg 01/28/24 23:27 Morphine Sulfate 2 Mg/Ml Vial IV-PUSH Q4H PRN Pain Scale 4 - 7 Morphine Sulfate 4 mg 01/28/24 23:27 Morphine Sulfate 4 Mg/Ml Cartridge IV-PUSH Q4H PRN Pain Scale 8 - 10 Ondansetron HCl 4 mg 01/29/24 14:17 Ondansetron 4 Mg/2 Ml Vial IV-PUSH 01/28/25 14:16 Q6H PRN Nausea/Vomiting Sodium Chloride 0 ml 01/28/24 18:12 01/28/24 22:48 Sodium Chloride 0.9 % 10 Ml Syringe IV-PUSH 01/27/25 18:11 10 ml PRN PRN Administration Flush Sodium Chloride 0 ml 01/28/24 23:31 Sodium Chloride 0.9 % 10 Ml Syringe IV-PUSH 01/27/25 23:30 PRN PRN Flush A&P - Hospitalist Assessment/Plan (1) Subcapital fracture of right hip: (2) Expressive aphasia: (3) HTN (hypertension): (4) Hypomagnesemia: (5) Postoperative anemia due to acute blood loss: Plan Patient postop day 1 with no overnight event. She denies having right hip pain. She did work with physical therapy earlier today. Discontinue Evans catheter. Morning labs did show postoperative blood loss anemia with hemoglobin dropped to 9.9 from 14.3 yesterday. She denies feeling dizzy or having generalized weakness. Continue monitor. Start iron supplement. She is hopeful to go to inpatient rehab. Lovenox for DVT prophylaxis. Continue aspirin and statin given her recent stroke. Urine culture showing contaminant patient on ceftriaxone. Plan to treat with 3 days. Continue amlodipine with hydrochlorothiazide on hold prevent hypotension. Can be resumed if blood pressure remains high. Documented By: Azar Plaza MD 01/30/24937 Signed By: <Electronically signed by Azar Plaza MD> 01/30/24941 [facility] Work Phone: 1(895) 260-569005-09-2024 History and physical note Author Howard Golden [facility] January 29, 2024 9:03pm Note Date/Time January 29, 2024 7:06am [facility] [address] [place] [address] Hospitalist H&P Signed with Addenda Patient: Moustapha Alejandra MR#: [id number] : 1945 Acct:[id number] Age/Sex: 78 / F Adm Date: 4 Loc: Room: 3N9555-1 Type: ADM IN Attending Dr: Azar Plaza MD Copies to: MD Hannah Reddy MD Mazhar Rahman, MD~ ADDENDUM1 Note this is a delayed entry, my evaluation of the patient took place at 2300 01/28/24 Addendum Documented By: Howard Golden MD 01/29/242102 Addendum Signed By: <Electronically signed by Howard Golden MD> 01/29/242102 HPI DATE OF EXAMINATION: 01/29/24 CHIEF COMPLAINT: fall, right hip pain HISTORY OF PRESENT ILLNESS: 78 year old woman with history of HTN, anxiety, recent CVA who presented after afall Per the patient she was in her kitchen this afternoon when she slipped while trying to put down two plates of food on the dinner table. she immediately had severe right hip pain and was unable to gegt up. EMS was activated and pt was brought to the ED for evaluation. Vital signs on arrival to the ED were as follows: T 97.7 P 85 R 18 BP 185/88 SaO2 98% on RA. xrays revealed a right subcapital hip fracture. pt was given dilaudid morphine zofran and normal saline and is admitted for further eval/mgmt ROS: 10 systems reviewed and were negative except as noted in the [facility] [place] Medical History Right humeral fracture Acute CVA (cerebrovascular accident) Anxiety HTN (hypertension) Family History Father Mother Social History Smoking Status: Never smoker Substance Use Type: None Meds Medications and Allergies Allergies Iodinated Contrast Media [From Contrast Media] Allergy (Severe, Verified 01/28/24 18:13) Anaphylaxis meperidine [Demerol] Allergy (Unknown, Verified 01/28/24 18:13) Unknown Reaction neomycin Allergy (Unknown, Verified 01/28/24 18:13) Unknown Reaction Home Medications acetaminophen 500 mg tablet 500 mg PO Q4H PRN Pain #60 tabs 01/01/24 [Rx Confirmed 01/28/24] amlodipine 5 mg tablet 5 mg PO DAILY 30 days #30 tabs 01/01/24 [Rx Confirmed 01/28/24] aspirin 81 mg tablet,delayed release 81 mg PO DAILY #30 tabs 01/01/24 [Rx Confirmed 01/28/24] atorvastatin 40 mg tablet 40 mg PO QPM 30 days #30 tabs 01/01/24 [Rx Confirmed 01/28/24] duloxetine 60 mg capsule,delayed release 60 mg PO DAILY 30 days #30 caps 01/01/24 [Rx Confirmed 01/28/24] fluticasone propionate 50 mcg/actuation nasal spray,suspension 2 spray intranasal DAILY PRN allergy symptoms 30 days #1 ea 01/01/24 [Rx Confirmed 01/28/24] hydrochlorothiazide 25 mg tablet 25 mg PO DAILY 30 days #30 tabs 01/01/24 [Rx Confirmed 01/28/24] latanoprost 0.005 % eye drops 1 drp Eye-Both DAILY 30 days #1 ea 01/01/24 [Rx Confirmed 01/28/24] loratadine 10 mg tablet 10 mg PO DAILY #30 tabs 01/01/24 [Rx Confirmed 01/28/24] multivitamin with folic acid 400 mcg tablet (Thera) 1 tab PO DAILY #30 tabs 01/01/24 [Rx Confirmed 01/28/24] nystatin 100,000 unit/gram topical powder (Nystop) 1 applic topical BID #15 grams 01/01/24 [Rx Confirmed 01/28/24] Exam Physical Exam Vital Signs: Temp Pulse Resp BP Pulse Ox O2 Del Method O2 Flow Rate 97.6 F 82 17 148/81 H 95 Nasal Cannula 3 01/29/24 03:47 01/29/24 03:47 01/29/24 03:47 01/29/24 03:47 01/29/24 03:47 01/29/24 04:10 01/29/24 04:10 Const General: cooperative, no acute distress and well developed HEENT Head: normal to inspection Ears: external ears normal Nose: external nose normal Face and sinus: normal facial exam Mouth: oral mucosae normal Throat: posterior oropharynx normal Eyes General: appearance normal, both eyes and all related structures Visual Sellers: normal visual sellers by confrontation Sclera: sclerae normal Pupils: PERRL and accommodation normal Neck Neck: normal visual inspection, no lymphadenopathy and supple Thyroid: thyroid normal Lymphatic: no lymphadenopathy noted Chest Chest palpation & inspection: normal inspection of the chest Resp Effort & Inspection: normal respiratory effort, able to speak in complete sentences and symmetric chest movement Auscultation: clear to auscultation bilaterally Cardio Palpation: normal PMI Rate: regular rate Rhythm: regular rhythm Heart Sounds: S1 normal and S2 normal GI Inspection: normal to inspection Palpation: soft Auscultation: normal bowel sounds General: bladder normal to palpation Bimanual Exam- Vagina & Uterus: bladder normal to palpation Musc Cervical Spine: cervical ROM normal Thoracic/Lumbar Spine: thoracic and lumbar spine normal to inspection Skin General: no rashes or lesions noted and turgor normal Neuro General: patient alert, patient awake and patient oriented x3 Cranial Nerves: CN's II-XII intact bilaterally Cognition: normal cognition Speech: expressive aphasia Extrem General: normal to inspection and full ROM Psych Appearance: grossly normal Mental Status: mental status grossly normal Affect: normal affect Speech and Movement: speech and movement normal Attitude: cooperative Results - Hospitalist H&P Lab Results Labs: Laboratory Last Values Corrected WBC 13.4 X10E3/uL (3.8-11.6) H 01/29/24 05:29 Uncorrected WBC Count 13.4 x10E3/uL (3.8-11.6) H 01/29/24 05:29 RBC 4.86 X10E6/uL (3.60-5.00) 01/29/24 05:29 Hgb 14.3 g/dL (11.8-15.4) 01/29/24 05:29 Hct 43.0 % (34.0-46.4) 01/29/24 05:29 MCV 88.6 fl (80-100) 01/29/24 05:29 MCH 29.4 pg (24.7-34.3) 01/29/24 05:29 MCHC 33.1 g/dL (32.0-35.0) 01/29/24 05:29 RDW 13.9 % (11.9-15.3) 01/29/24 05:29 Plt Count 164 x10E3/uL (150-450) 01/29/24 05:29 MPV 8.8 fl (6.3-10.7) 01/29/24 05:29 Neut % (Auto) 89.0 % (.) 01/29/24 05:29 Lymph % (Auto) 4.1 % (.) 01/29/24 05:29 Bowie % (Auto) 5.5 % (.) 01/29/24 05:29 Eos % (Auto) 0.5 % (.) 01/29/24 05:29 Baso % (Auto) 0.9 % (.) 01/29/24 05:29 Nucleat RBC Rel Count 0.1 /100 WBC (0-0.5) 01/29/24 05:29 Neut # (Auto) 11.9 x10E3/uL (1.8-7.7) H 01/29/24 05:29 Lymph # (Auto) 0.5 x10E3/uL (1.00-4.8) L 01/29/24 05:29 Bowie # (Auto) 0.7 x10E3/uL (0.0-0.8) 01/29/24 05:29 Eos # (Auto) 0.1 x10E3/uL (0.0-0.45) 01/29/24 05:29 Baso # (Auto) 0.1 x10E3/uL (0.0-0.2) 01/29/24 05:29 Monocyte Dist Width 18.35 % (0.00-20.00) 01/28/24 18:30 PT 11.4 Seconds (9.0-12.9) 01/28/24 18:30 INR 1.0 01/28/24 18:30 APTT 26.6 Seconds (25.1-36.5) 01/28/24 18:30 PHA Creatinine Clear 58.19 01/29/24 05:29 Sodium 135 mmol/L (136-145) L 01/29/24 05:29 Potassium 3.9 mmol/L (3.5-5.1) 01/29/24 05:29 Chloride 103 mmol/L (98-107) 01/29/24 05:29 Carbon Dioxide 25.0 mmol/L (21.0-31.0) 01/29/24 05:29 Anion Gap 10.9 mEq/L (6.0-15.0) 01/29/24 05:29 BUN 20 mg/dL (7-25) 01/29/24 05:29 Creatinine 0.84 mg/dL (0.60-1.20) 01/29/24 05:29 Est GFR (CKD-EPI) > 60.0 mL/Min 01/29/24 05:29 Glucose 112 mg/dL (70-100) H 01/29/24 05:29 Calcium 8.4 mg/dL (8.6-10.3) L 01/29/24 05:29 Phosphorus 4.3 mg/dL (2.5-4.5) 01/29/24 05:29 Magnesium 1.7 mg/dL (1.9-2.7) L 01/29/24 05:29 Total Bilirubin 0.5 mg/dl (0.3-1.0) 01/29/24 05:29 AST 18 U/L (13-39) 01/29/24 05:29 ALT 13 U/L (7-52) 01/29/24 05:29 Alkaline Phosphatase 78 U/L (34-104) 01/29/24 05:29 Total Protein 6.4 gm/dL (6.4-8.9) 01/29/24 05: Albumin 3.7 gm/dL (3.5-5.7) 01/29/24 05: Globulin 2.7 gm/dL 01/29/24 05: Albumin/Globulin Ratio 1.4 01/29/24 05:29 Urine Color Yellow (Yellow) 01/28/24 20:45 Urine Appearance Cloudy (Clear) A 01/28/24 20:45 Urine pH 5.5 (5.0-9.0) 01/28/24 20:45 Ur Specific [place] 1.019 (1.001-1.030) 01/28/24 20:45 Urine Protein Negative mg/dL (Negative) 01/28/24 20:45 Urine Glucose (UA) Normal mg/dL (Normal) 01/28/24 20:45 Urine Ketones 1+ (Negative) H 01/28/24 20:45 Urine Occult Blood 1+ (Negative) H 01/28/24 20:45 Urine Nitrite Negative (Negative) 01/28/24 20:45 Urine Bilirubin Negative (Negative) 01/28/24 20:45 Urine Urobilinogen Normal mg/dL (Normal) 01/28/24 20:45 Ur Leukocyte Esterase 3+ (Negative) H 01/28/24 20:45 Urine RBC 3-4 /HPF (0-4) 01/28/24 20:45 Urine WBC 20-49 /HPF (0-4) H 01/28/24 20:45 Ur Squamous Epith Cells 0-1 /HPF (0-2) 01/28/24 20:45 Calcium Oxalate Crystal 2+ /HPF 01/28/24 20:45 Urine Bacteria None seen /HPF (None Seen) 01/28/24 20:45 Hyaline Casts 0-8 /LPF (0-8) 01/28/24 20:45 Urine Yeast N/A 01/28/24 20:45 Urine Opiates Screen Positive (Negative) H 01/28/24 20:45 Ur Barbiturates Screen Negative (Negative) 01/28/24 20:45 Ur Phencyclidine Scrn Negative (Negative) 01/28/24 20:45 Ur Amphetamines Screen Negative (Negative) 01/28/24 20:45 U Benzodiazepines Scrn Negative (Negative) 01/28/24 20:45 Urine Cocaine Screen Negative (Negative) 01/28/24 20:45 U Marijuana (THC) Screen Negative (Negative) 01/28/24 20:45 Blood Type A Positive 01/28/24 20:53 Blood Type Recheck A Positive 01/29/24 00:24 Antibody Screen Negative 01/28/24 20:53 Assessment & Plan Assessment/Plan (1) Subcapital fracture of right hip: Plan admit pain control- toradol/morphine gentle IVF while NPO continue home meds as ordered ortho contacted- plan for operative intervention in am. NPO after midnight no medical contraindication to surgery VTE prophylaxis per attending surgeon full code IP vs OBS Justification Based on differential dx, clinical care plan, and risk of adverse events, if untreated, in my clinical judgement this patient requires an acute care setting as: INPATIENT because of an expectation of an over 2 midnight stay. Estimated length of stay (# of days): 4 Documented By: Howard Golden MD 01/29/24 0658 Signed By: <Electronically signed by Howard Golden MD> 01/29/24 0706 [facility] Work Phone: 1(100) 223-700405-09-2024 Progress note Author Azar Plaza [facility] January 29, 2024 8:44am Note Date/Time January 29, 2024 8:42am [facility] [address] [place] [address] Hospitalist Progress Note Signed Patient: Moustapha Alejandra MR#: [id number] : 1945 Acct:[id number] Age/Sex: 78 / F Adm Date: 4 Loc: 4N Room: 3O5868-4 Type: ADM IN Attending Dr: Azar Plaza MD Copies to: ~ Date of Service: 01/29/2024 Subjective Subjective Narrative: On examination patient resting comfortably and currently denies any complaint. She does have expressive aphasia from recent stroke with difficulty communicating but it has improved. She was admitted last night when she presented to ER after a fall found to have right hip fracture. Orthopedic has been consulted and patient scheduled for surgery later today. Patient denies feeling dizzy or having syncopal episode. She slipped while trying to put down the plates in the kitchen. Patient was recently discharged from the hospital when admitted for acute CVA which she received TNKase. She was found to have left MCA distribution infarct and was discharged on aspirin and statin from inpatient rehab. Patient did not have any other focal deficit other than expressive aphasia. Neurology recommended event monitor on discharge. Patient mentioned having issues with event monitor which she wore for 5 days and appearsshe would prefer to have wireless monitor. Exam Physical Exam Vital Signs: Temp Pulse Resp BP Pulse Ox O2 Del Method O2 Flow Rate 97.9 F 87 17 149/79 H 97 Nasal Cannula 3 01/29/24 08:00 01/29/24 08:00 01/29/24 03:47 01/29/24 08:00 01/29/24 08:00 01/29/24 08:00 01/29/24 08:00 Const Orientation: alert, awake and oriented x3 Other: Expressive aphasia but able to communicate. Following commands and answering appropriately. Resp Effort & Inspection: normal respiratory effort and able to speak in complete sentences Auscultation: no rales, no rhonchi and no wheezes Cardio Rate: regular rate Rhythm: regular rhythm Heart Sounds: S1 normal and S2 normal GI Palpation: soft, not firm, no guarding and nontender Neuro General: patient alert, patient awake, patient oriented x3, moves all extremities and no focal motor deficits Cranial Nerves: CN's II-XII intact bilaterally Cognition: normal cognition Speech: expressive aphasia Motor: muscle tone normal throughout and strength 5/5 throughout Extrem General: no clubbing, cyanosis or edema and no calf tenderness Objective Lab Results 01/29/24 05:29 01/29/24 05:29 Meds Allergies and Active Meds Allergies Iodinated Contrast Media [From Contrast Media] Allergy (Severe, Verified 01/28/24 18:13) Anaphylaxis meperidine [Demerol] Allergy (Unknown, Verified 01/28/24 18:13) Unknown Reaction neomycin Allergy (Unknown, Verified 01/28/24 18:13) Unknown Reaction Active Meds: Active Medications Generic Name Dose Route Start Last Admin Trade Name Freq PRN Reason Stop Dose Admin Acetaminophen 1,000 mg 01/28/24 23:31 Acetaminophen 500 Mg Tablet PO 01/27/25 23:30 Q8H PRN Fever or Pain Hydrocodone Bitart/Acetaminophen 1 tab 01/28/24 23:31 Hydrocodone/Acetaminophen 5-325 Mg Tablet PO Q4H PRN Pain Hydrocodone Bitart/Acetaminophen 2 tab 01/28/24 23:31 Hydrocodone/Acetaminophen 5-325 Mg Tablet PO Q4H PRN Pain Ascorbic Acid 500 mg 01/29/24 09:00 Ascorbic Acid 500 Mg Tablet PO 01/28/25 08:59 DAILY GENEVIEVE Calcium Carbonate 1 tab 01/29/24 08:00 Calcium Carbonate/Vitamin D3 500 Mg/200 Unit Tablet PO 01/28/25 07:59 TID.WITH.MEALS [facility] Cyclobenzaprine HCl 5 mg 01/28/24 23:31 Cyclobenzaprine 5 Mg Tablet PO 01/27/25 23:30 Q8H PRN Muscle Spasm Docusate Sodium 100 mg 01/29/24 09:00 Docusate 100 Mg Capsule PO 01/28/25 08:59 BID [facility] Enoxaparin Sodium 40 mg 01/30/24 10:00 Enoxaparin 40 Mg/0.4 Ml Syringe SUBCUT 01/29/25 09:59 DAILY@10 GENEVIEVE Famotidine 20 mg 01/29/24 09:00 Famotidine 20 Mg Tablet PO 01/28/25 08:59 BID [facility] Ferrous Sulfate 324 mg 01/29/24 09:00 Ferrous Sulfate 324 Mg Tablet. PO 01/28/25 08:59 BID [facility] Hydromorphone HCl 0.5 mg 01/28/24 23:31 01/29/24 07:45 Hydromorphone 0.5 Mg/0.5 Ml Syringe IV-PUSH 0.5 mg Q2H PRN Administration Pain Scale 1 - 3 Hydromorphone HCl 1 mg 01/28/24 23:31 01/29/24 04:14 Hydromorphone 1 Mg/Ml Syringe IV-PUSH 1 mg Q2H PRN Administration Pain Scale 4 - 6 Cefazolin Sodium 2 gm in 50 mls @ 100 mls/hr 01/29/24 14:00 Ancef IV 01/29/24 14:29 PREOP ONE Sodium Chloride 1,000 mls @ 80 mls/hr 01/29/24 00:05 01/29/24 05:43 0.9% Sodium Chloride 1,000 Ml IV 01/28/25 00:04 80 mls/hr .[id number] GENEVIEVE Administration Potassium Chloride 20 meq/ 260 mls @ 130 mls/hr 01/28/24 23:32 01/29/24 01:58 Sodium Chloride IV 01/27/25 23:31 130 mls/hr DAILY PRN Administration Hypokalemia Potassium Chloride 40 meq/ 520 mls @ 130 mls/hr 01/28/24 23:32 Sodium Chloride IV 01/27/25 23:31 DAILY PRN Hypokalemia Magnesium Sulfate 2 gm in 50 mls @ 25 mls/hr 01/28/24 23:32 Magnesium Sulf 2gm-*Swfi* IV 01/27/25 23:31 DAILY PRN Magnesium Level < 1.5 Ketorolac Tromethamine 15 mg 01/28/24 23:40 01/29/24 05:42 Ketorolac Tromethamine 15 Mg/Ml Vial IV-PUSH 01/30/24 14:01 15 mg Q8HR GENEVIEVE Administration Magnesium Hydroxide 30 ml 01/28/24 23:31 Magnesium Hydroxide Susp 30 Ml Udc PO 01/27/25 23:30 DAILY PRN Constipation Morphine Sulfate 2 mg 01/28/24 23:27 Morphine Sulfate 2 Mg/Ml Vial IV-PUSH Q4H PRN Pain Scale 4 - 7 Morphine Sulfate 4 mg 01/28/24 23:27 Morphine Sulfate 4 Mg/Ml Cartridge IV-PUSH Q4H PRN Pain Scale 8 - 10 Ondansetron HCl 4 mg 01/28/24 23:31 Ondansetron 4 Mg/2 Ml Vial IV-PUSH 01/27/25 23:30 Q6H PRN Nausea And Vomiting Sodium Chloride 0 ml 01/28/24 18:12 01/28/24 22:48 Sodium Chloride 0.9 % 10 Ml Syringe IV-PUSH 01/27/25 18:11 10 ml PRN PRN Administration Flush Sodium Chloride 0 ml 01/28/24 23:31 Sodium Chloride 0.9 % 10 Ml Syringe IV-PUSH 01/27/25 23:30 PRN PRN Flush A&P - Hospitalist Assessment/Plan (1) Subcapital fracture of right hip: (2) Expressive aphasia: (3) HTN (hypertension): (4) Hypomagnesemia: Plan Patient is a 78-year-old female who was recently discharged in the hospital after acute stroke which led to expressive aphasia and received TNKase. She does have history of hypertension for which she takes hydrochlorothiazide. She was brought to the emergency room yesterday after a mechanical fall when she slipped in the kitchen and found to have right hip fracture. Orthopedic was consulted by ER and patient scheduled for surgery later today. Recommend continued telemetry monitoring given her recent stroke and also speech therapy. Continue aspirin and statin. Replace magnesium. Will hold hydrochlorothiazide and continue amlodipine. IV. Medication fractured hypertension. DVT prophylaxis. Urinalysis showing WBC count of 20-49 with 3+ leukocyte esterase. She did have leukocytosis and will be started on ceftriaxone for acute cystitis until cultures are back. Documented By: Azar Plaza MD 01/29/24 0834 Signed By: <Electronically signed by Azar Plaza MD> 01/29/24 0844 [facility] Work Phone: [phone]) 490-378604-10-2024 Progress note Author Avtar Barbosa [facility] December 31, 2023 7:20pm Note Date/Time December 31, 2023 7:2 0pm [facility] [address] [place] [address] Physiatry(Rehab) Progress Note Signed Patient: Moustapha Alejandra MR#: [id number] : 1945 Acct:[id number] Age/Sex: 78 / F Adm Date: 4 Loc: Room: 2S0003-1 Type: ADM IN Attending Dr: Avtar Barbosa MD Copies to: ~ Date of Service: 12/31/2023 Subjective Subjective Narrative: Ms. Alejandra is a 78 year old female with past medical history of hypertension andanxiety, who presents to acute inpatient debilitation unit with functional impairments secondary to left MCA CVA. Patient was brought to the emergency department on 12/20 with complaints of facial drooping and expressive aphasia. Last known well approximately 3 hours prior. Patient was significantly hypertensive on arrival; improved with IV labetalol. Initial head CT and CTA head and neck were negative for acute findings. Vela stroke team consulted, recommended TNK, which was administered in the emergency department. Patient was then admitted to intensive care unit for further workupand observation. Neurology was consulted. Recommended initiating atorvastatin and adding hours post TNK. Transthoracic echo demonstrated EF of 60 to 65% with mild concentric LVH, mildly dilated left atrium and mild mitral regurgitation. Brain MRI demonstrated focal recent infarction of the frontotemporal left MCA distribution. Neurology recommended continuing current treatment and a 30-day surveillance system monitor at discharge. Interval History: Patient seen and evaluated at bedside. Resting comfortably in recliner next to bed. Appears in no distress. She denies chest pain, SOB, fever, chills. PAtientsspouse at bedside as well. Discussed future stroke prevention. All questions answered. Review of Systems Review of Systems All other systems reviewed & are negative unless noted below or in HPI Exam Physical Exam Vital Signs: Temp Pulse Resp BP Pulse Ox O2 Del Method 97.6 F 91 14 151/90 H 95 Room Air 12/31/23 15:41 12/31/23 15:41 12/31/23 15:41 12/31/23 15:41 12/31/23 15:41 12/31/23 15:41 Narrative: General: Awake, alert, oriented x3 HENT: Normal to inspection, normocephalic, atraumatic Eyes: PERRL, normal conjunctiva and sclera Face: Mild right facial droop Neck: Normal ROM, normal visual inspection. Trachea midline. Cardio: extremities well perfused Respiratory: Normal respiratory effort. No respiratory distress. GI: Abdomen soft, nontender, nondistended, active bowel sounds x4 quadrants Neuro: CN II-XII intact. Mild right facial droop. Expressive aphasia. Strength 5/5, equal bilaterally Extremities: No edema, erythema, cyanosis Psych: Mood and affect appropriate. Expressive aphasia. Objective Labs 12/24/23 05:08 12/24/23 05:08 Medications and Allergies Allergies and Active Meds: Allergies Iodinated Contrast Media [From Contrast Media] Allergy (Severe, Verified 12/22/23 15:05) Anaphylaxis meperidine [Demerol] Allergy (Unknown, Verified 12/22/23 15:05) Unknown Reaction neomycin Allergy (Unknown, Verified 12/22/23 15:05) Unknown Reaction Active Medications Generic Name Dose Route Start Last Admin Trade Name Freq PRN Reason Stop Dose Admin Acetaminophen 500 mg 12/23/23 18:09 12/24/23 20:53 Acetaminophen 500 Mg Tablet PO 12/22/24 18:08 500 mg Q4H PRN Administration Pain Al Hydrox/Mg Hydrox/Simethicone 30 ml 12/23/23 18:09 Mag Hydrox/Al Hydrox/Simeth 30 Ml Udc PO 12/22/24 18:08 Q4H PRN Indigestion Amlodipine Besylate 5 mg 12/24/23 09:00 12/31/23 08:28 Amlodipine 5 Mg Tablet PO 12/23/24 08:59 5 mg DAILY GENEVIEVE Administration Aspirin 81 mg 12/24/23 09:00 12/31/23 08:28 Aspirin 81 Mg Tablet. PO 12/23/24 08:59 81 mg DAILY GENEVIEVE Administration Atorvastatin Calcium 40 mg 12/23/23 21:00 12/30/23 20:32 Atorvastatin 40 Mg Tablet PO 12/22/24 20:59 40 mg QPM GENEVIEVE Administration Bisacodyl 10 mg 12/23/23 18:09 Bisacodyl 10 Mg Supp.Rect OK 12/22/24 18:08 DAILY PRN Constipation Docusate Sodium 100 mg 12/23/23 18:09 Docusate 100 Mg Capsule PO 12/22/24 18:08 BID PRN Constipation Docusate Sodium 283 mg 12/23/23 18:09 Docusate Enema 283 Mg/5 Ml Enema OK 12/22/24 18:08 DAILY PRN Constipation Duloxetine HCl 60 mg 12/24/23 09:00 12/31/23 08:28 Duloxetine 60 Mg Capsule. PO 12/23/24 08:59 60 mg DAILY GENEVIEVE Administration Fluticasone Propionate 2 spray 12/23/23 18:08 Fluticasone Propionate [place] 120 Omaha/16 Gm Bottle INTRANASAL 12/22/24 18:07 DAILY PRN allergy symptoms Heparin Sodium (Porcine) 5,000 unit 12/23/23 22:00 12/31/23 15:04 Heparin 5,000 Unit/Ml Vial SUBCUT 12/22/24 21:59 5,000 unit Q8HR GENEVIEVE Administration Hydrochlorothiazide 25 mg 12/24/23 09:00 12/31/23 08:28 Hydrochlorothiazide 25 Mg Tablet PO 12/23/24 08:59 25 mg DAILY GENEVIEVE Administration Lactulose 30 gm 12/23/23 18:09 Lactulose 20 Gm/30 Ml Udc PO 12/22/24 18:08 DAILY PRN Constipation Latanoprost 1 drops 12/24/23 09:00 12/31/23 08:28 Latanoprost 0.005% Op Soln 50 Drops/2.5 Ml Bottle EYE-BOTH 12/23/24 08:59 1 drops DAILY GENEVIEVE Administration Loratadine 10 mg 12/24/23 09:00 12/31/23 08:28 Loratadine 10 Mg Tablet PO 12/23/24 08:59 10 mg DAILY GENEVIEVE Administration Multivitamins 1 tab 12/24/23 09:00 12/31/23 08:28 Multivitamin 1 Tab Tablet PO 12/23/24 08:59 1 tab DAILY GENEVIEVE Administration Nystatin 1 applic 12/29/23 09:00 12/31/23 08:28 Nystatin 100,000 Unit/Gram Powder 15 Gm Bottle TOPICAL 12/28/24 08:59 1 applic BID GENEVIEVE Administration Sennosides 2 tab 12/24/23 12:00 Sennosides 8.6 Mg Tablet PO 12/23/24 11:59 DAILY@12 PRN If no BM in 2 days Sodium Chloride 0 ml 12/23/23 18:09 Sodium Chloride 0.9 % 10 Ml Syringe IV-PUSH 12/22/24 18:08 PRN PRN Flush Assessment/Plan Assessment/Plan (1) Acute CVA (cerebrovascular accident): (2) Oropharyngeal dysphagia: (3) Aphasic agraphia: (4) Expressive aphasia: (5) HTN (hypertension): (6) Anxiety: (7) Impaired mobility and activities of daily living: Plan 78-year-old female with past medical history of hypertension and anxiety who presents to acute inpatient rehabilitation unit with functional deficits secondary to acute ischemic stroke. She received TNKase without major improvement in her symptoms. Remains expressively aphasic * No acute concerns overnight. * Remains hemodynamically stable. * Continues to progress in therapy. Neurological deficits are improving, less aphasic. * Discussed future stroke prevention with patient and spouse. All questions answered. Provided script for blood pressure cuff to monitor BP at home Patient education Pressure ulcer prophylaxis; encourage mobilization, frequent postural changes, pressure-relief techniques DVT prophylaxis Encourage deep breathing exercise incentive spirometry. Monitor bladder. Toileting schedule. Continue current bladder management, with scans as needed and CIC if needed. Start bowel care program every day to obtain continence, prevent ileus. Maintain fall precautions Gait and balance retraining Functional training and self-care and home management, including activities of daily living and instrumental activities of daily living Provision of the necessary gait aids and functional adaptive equipment to enhance the patient's a functional bahai Ensure adequate nutrition and hydration Sleep Discharge planning: home with family soon. Patient was personally seen by me, Dr. Barbosa, on the day of encounter, reviewed the history and the relevant portions of the chart, including current orders, allied health and mental health consultant notes, labs/imaging and performed bourgeois elements of exam and I formulated the plan of care and facilitated the medical decision making. I completed a substantive portion of this encounter, the medical decision making portion of this note in its entirety, including Allied health note review, nursing note review, mental health consultant note review, discussion with nursing and case management, and more than 50% of my time was spent on counseling and coordination of care, time spent 35 minutes Documented By: Avtar Barbosa MD [id number] Signed By: <Electronically signed by Avtar Barbosa MD> 12/31/231919 [facility] Work Phone: 1([phone]) 375-141904-09-2024 Progress note Author Avtar Barbosa [facility] December 30, 2023 2:01pm Note Date/Time December 30, 2023 10:5 0am [facility] [address] [place] [address] Physiatry(Rehab) Progress Note Signed Patient: Moustapha Alejandra MR#: [id number] : 1945 Acct:[id number] Age/Sex: 78 / F Adm Date: 4 Loc: Room: [address] [place] [address] Type: ADM IN Attending Dr: Avtar Barbosa MD Copies to: ~ <Loulou Newton APRN - Last Filed: 12/30/23 10:50> Date of Service: 12/30/2023 Subjective <Loulou Newton APRN - Last Filed: 12/30/23 10:50> Subjective Narrative: Ms. Alejandra is a 78 year old female with past medical history of hypertension andanxiety, who presents to acute inpatient debilitation unit with functional impairments secondary to left MCA CVA. Patient was brought to the emergency department on 12/20 with complaints of facial drooping and expressive aphasia. Last known well approximately 3 hours prior. Patient was significantly hypertensive on arrival; improved with IV labetalol. Initial head CT and CTA head and neck were negative for acute findings. Vela stroke team consulted, recommended TNK, which was administered in the emergency department. Patient was then admitted to intensive care unit for further workupand observation. Neurology was consulted. Recommended initiating atorvastatin and adding [id number] hours post TNK. Transthoracic echo demonstrated EF of 60 to 65% with mild concentric LVH, mildly dilated left atrium and mild mitral regurgitation. Brain MRI demonstrated focal recent infarction of the frontotemporal left MCA distribution. Neurology recommended continuing current treatment and a 30-day surveillance system monitor at discharge. Interval History: Patient is up in the chair, reading e-book on exam this morning. She is alert, pleasant, oriented. Reports no new concerns or complaints. Denies pain. Remains hemodynamically stable. Continues to work with therapy. Ambulatory 400 feet without assistive device, SBA, SBA with transfers. Need to arrange an FI with family. Review of Systems <Loulou Newton APRN - Last Filed: 12/30/23 10:50> Review of Systems All other systems reviewed & are negative unless noted below or in HPI Exam <Loulou Newton APRN - Last Filed: 12/30/23 10:50> Physical Exam Vital Signs: Temp Pulse Resp BP Pulse Ox O2 Del Method 98.2 F 79 18 127/80 96 Room Air 12/30/23 05:00 12/30/23 05:00 12/30/23 05:00 12/30/23 05:00 12/30/23 05:00 12/30/23 05:00 Narrative: General: Awake, alert, oriented x3 HENT: Normal to inspection, normocephalic, atraumatic Eyes: PERRL, normal conjunctiva and sclera Face: Mild right facial droop Neck: Normal ROM, normal visual inspection. Trachea midline. Cardio: Regular heart rate and rhythm Respiratory: Clear to auscultation bilaterally. Normal respiratory effort. No respiratory distress. GI: Abdomen soft, nontender, nondistended, active bowel sounds x4 quadrants Neuro: CN II-XII intact. Mild right facial droop. Expressive aphasia. Strength 5/5, equal bilaterally Extremities: No edema, erythema, cyanosis Psych: Mood and affect appropriate. Expressive aphasia. Objective <Loulou Newton APRN - Last Filed: 12/30/23 10:50> Labs 12/24/23 05:08 12/24/23 05:08 Additional Results Results Comments: I reviewed clinical lab tests, radiology reports and obtained and summated medical records and have ordered follow up lab tests and imaging studies as needed for rehabilitation care. Medications and Allergies Allergies and Active Meds: Allergies Iodinated Contrast Media [From Contrast Media] Allergy (Severe, Verified 12/22/23 15:05) Anaphylaxis meperidine [Demerol] Allergy (Unknown, Verified 12/22/23 15:05) Unknown Reaction neomycin Allergy (Unknown, Verified 12/22/23 15:05) Unknown Reaction Active Medications Generic Name Dose Route Start Last Admin Trade Name Freq PRN Reason Stop Dose Admin Acetaminophen 500 mg 12/23/23 18:09 12/24/23 20:53 Acetaminophen 500 Mg Tablet PO 12/22/24 18:08 500 mg Q4H PRN Administration Pain Al Hydrox/Mg Hydrox/Simethicone 30 ml 12/23/23 18:09 Mag Hydrox/Al Hydrox/Simeth 30 Ml Udc PO 12/22/24 18:08 Q4H PRN Indigestion Amlodipine Besylate 5 mg 12/24/23 09:00 12/30/23 09:27 Amlodipine 5 Mg Tablet PO 12/23/24 08:59 5 mg DAILY GENEVIEVE Administration Aspirin 81 mg 12/24/23 09:00 12/30/23 09:27 Aspirin 81 [address] Tablet.Dr MERCEDES 12/23/24 08:59 81 mg DAILY GENEVIEVE Administration Atorvastatin Calcium 40 mg 12/23/23 21:00 12/29/23 21:23 Atorvastatin 40 Mg Tablet PO 12/22/24 20:59 40 mg QPM GENEVIEVE Administration Bisacodyl 10 mg 12/23/23 18:09 Bisacodyl 10 Mg Supp.Rect OK 12/22/24 18:08 DAILY PRN Constipation Docusate Sodium 100 mg 12/23/23 18:09 Docusate 100 Mg Capsule PO 12/22/24 18:08 BID PRN Constipation Docusate Sodium 283 mg 12/23/23 18:09 Docusate Enema 283 Mg/5 Ml Enema OK 12/22/24 18:08 DAILY PRN Constipation Duloxetine HCl 60 mg 12/24/23 09:00 12/30/23 09:27 Duloxetine 60 [address]Dr MERCEDES 12/23/24 08:59 60 mg DAILY GENEVIEVE Administration Fluticasone Propionate 2 spray 12/23/23 18:08 Fluticasone Propionate [place] 120 [place]/16 Gm Bottle INTRANASAL 12/22/24 18:07 DAILY PRN allergy symptoms Heparin Sodium (Porcine) 5,000 unit 12/23/23 22:00 12/30/23 05:37 Heparin 5,000 Unit/Ml Vial SUBCUT 12/22/24 21:59 5,000 unit Q8HR GENEVIEVE Administration Hydrochlorothiazide 25 mg 12/24/23 09:00 12/30/23 09:27 Hydrochlorothiazide 25 Mg Tablet PO 12/23/24 08:59 25 mg DAILY GENEVIEVE Administration Lactulose 30 gm 12/23/23 18:09 Lactulose 20 Gm/30 Ml Udc PO 12/22/24 18:08 DAILY PRN Constipation Latanoprost 1 drops 12/24/23 09:00 12/30/23 09:27 Latanoprost 0.005% Op Soln 50 Drops/2.5 Ml Bottle EYE-BOTH 12/23/24 08:59 1 drops DAILY GENEVIEVE Administration Loratadine 10 mg 12/24/23 09:00 12/30/23 09:27 Loratadine 10 Mg Tablet PO 12/23/24 08:59 10 mg DAILY GENEVIEVE Administration Multivitamins 1 tab 12/24/23 09:00 12/30/23 09:27 Multivitamin 1 Tab Tablet PO 12/23/24 08:59 1 tab DAILY GENEVIEVE Administration Nystatin 1 applic 12/29/23 09:00 12/30/23 09:31 Nystatin 100,000 Unit/Gram Powder 15 Gm Bottle TOPICAL 12/28/24 08:59 1 applic BID GENEVIEVE Administration Sennosides 2 tab 12/24/23 12:00 Sennosides 8.6 Mg Tablet PO 12/23/24 11:59 DAILY@12 PRN If no BM in 2 days Sodium Chloride 0 ml 12/23/23 18:09 Sodium Chloride 0.9 % 10 Ml Syringe IV-PUSH 12/22/24 18:08 PRN PRN Flush Assessment/Plan <Loulou Newton, FAMILY INTERVENTION SPECIALIST - Last Filed: 12/30/23 10:50> Assessment/Plan (1) Acute CVA (cerebrovascular accident): (2) Oropharyngeal dysphagia: (3) Aphasic agraphia: (4) Expressive aphasia: (5) HTN (hypertension): (6) Anxiety: (7) Impaired mobility and activities of daily living: Plan 78-year-old female with past medical history of hypertension and anxiety who presents to acute inpatient rehabilitation unit with functional deficits secondary to acute ischemic stroke. She received TNKase without major improvement in her symptoms. Remains expressively aphasic * No acute concerns overnight. * Remains hemodynamically stable. * Continues to progress in therapy. Neurological deficits are improving, less aphasic. Patient education Pressure ulcer prophylaxis; encourage mobilization, frequent postural changes, pressure-relief techniques DVT prophylaxis Encourage deep breathing exercise incentive spirometry. Monitor bladder. Toileting schedule. Continue current bladder management, with scans as needed and CIC if needed. Start bowel care program every day to obtain continence, prevent ileus. Maintain fall precautions Gait and balance retraining Functional training and self-care and home management, including activities of daily living and instrumental activities of daily living Provision of the necessary gait aids and functional adaptive equipment to enhance the patient's a functional bahai Ensure adequate nutrition and hydration Sleep Discharge planning: home with family soon. I spent 14 minutes for services, including [id number] encounter with the patient, discussion of the case, plan of care, and exam; and [id number] activities, such as reviewing pertinent mental health consultant documentation, recent therapy notes, laboratory and radiology studies, and discussion of case with care team including physician, nursing, case work aide, and therapists. More than 50 % of time was spent on patient/family counseling or coordination of care. <Avtar Barbosa MD - Last Filed: 12/30/23 14:01> Assessment/Plan (1) Acute CVA (cerebrovascular accident): (2) Oropharyngeal dysphagia: (3) Aphasic agraphia: (4) Expressive aphasia: (5) HTN (hypertension): (6) Anxiety: (7) Impaired mobility and activities of daily living: Plan 78-year-old female with past medical history of hypertension and anxiety who presents to acute inpatient rehabilitation unit with functional deficits secondary to acute ischemic stroke. She received TNKase without major improvement in her symptoms. Remains expressively aphasic * No acute concerns overnight. * Remains hemodynamically stable. * Continues to progress in therapy. Neurological deficits are improving, less aphasic. Patient education Pressure ulcer prophylaxis; encourage mobilization, frequent postural changes, pressure-relief techniques DVT prophylaxis Encourage deep breathing exercise incentive spirometry. Monitor bladder. Toileting schedule. Continue current bladder management, with scans as needed and CIC if needed. Start bowel care program every day to obtain continence, prevent ileus. Maintain fall precautions Gait and balance retraining Functional training and self-care and home management, including activities of daily living and instrumental activities of daily living Provision of the necessary gait aids and functional adaptive equipment to enhance the patient's a functional bahai Ensure adequate nutrition and hydration Sleep Discharge planning: home with family soon. I spent 14 minutes for services, including [id number] encounter with the patient, discussion of the case, plan of care, and exam; and [id number] activities, such as reviewing pertinent mental health consultant documentation, recent therapy notes, laboratory and radiology studies, and discussion of case with care team including physician, nursing, case work aide, and therapists. More than 50 % of time was spent on patient/family counseling or coordination of care. Patient was personally seen by me, Dr. Barbosa, on the day of encounter, reviewed the history and the relevant portions of the chart, including current orders, allied health and mental health consultant notes, labs/imaging and performed bourgeois elements of exam and I formulated the plan of care and facilitated the medical decision making. I completed a substantive portion of this encounter, the medical decision making portion of this note in its entirety, including Allied health note review, nursing note review, mental health consultant note review, discussion with nursing and case management, and more than 50% of my time was spent on counseling and coordination of care, time spent 30 minutes Case reviewed at weekly team conference, discussed progress and goals of care, barriers/problems to date and discharge planning. Documented By: Loulou Newton APRN 12/30/23 1 044 Signed By: <Electronically signed by LIVAN Newton> 12/30/23 1050 <Electronically signed by Avtar Barbosa MD> 12/30/23 1401 [facility] Work Phone: 1(189) 721-500504-09-2024 Progress note Author Avtar Barbosa [facility] December 30, 2023 1:16pm Note Date/Time December 29, 2023 4:30 pm [facility] [address] [place] [address] Physiatry(Rehab) Progress Note Signed Patient: Moustapha Alejandra MR#: [id number] : 1945 Acct:[id number] Age/Sex: 78 / F Adm Date: 4 Loc: 5T Room: 6X2556-9 Type: ADM IN Attending Dr: Avtar Barbosa MD Copies to: ~ Date of Service: 12/29/2023 Subjective Subjective Narrative: Ms. Alejandra is a 78 year old female with past medical history of hypertension andanxiety, who presents to acute inpatient debilitation unit with functional impairments secondary to left MCA CVA. Patient was brought to the emergency department on 12/20 with complaints of facial drooping and expressive aphasia. Last known well approximately 3 hours prior. Patient was significantly hypertensive on arrival; improved with IV labetalol. Initial head CT and CTA head and neck were negative for acute findings. [facility] stroke team consulted, recommended TNK, which was administered in the emergency department. Patient was then admitted to intensive care unit for further workupand observation. Neurology was consulted. Recommended initiating atorvastatin and adding [id number] hours post TNK. Transthoracic echo demonstrated EF of 60 to 65% with mild concentric LVH, mildly dilated left atrium and mild mitral regurgitation. Brain MRI demonstrated focal recent infarction of the frontotemporal left MCA distribution. Neurology recommended continuing current treatment and a 30-day surveillance system monitor at discharge. Interval History: Pt was seen and examined inn her room this AM. She's alert and oriented x 3, pleasant and cooperative. Speech is improving a little, still aphasic but able to provide more than yes/no questions. No other neuro deficits at this time. No other major concerns. Exam Physical Exam Vital Signs: Temp Pulse Resp BP Pulse Ox O2 Del Method 97.8 F 84 14 152/79 H 96 Room Air 12/29/23 14:42 12/29/23 14:42 12/29/23 14:42 12/29/23 14:42 12/29/23 14:42 12/29/23 14:42 Narrative: General: Awake, alert, oriented x3 HENT: Normal to inspection, normocephalic, atraumatic Eyes: PERRL, normal conjunctiva and sclera Face: Mild right facial droop Neck: Normal ROM, normal visual inspection. Trachea midline. Cardio: Regular heart rate and rhythm Respiratory: Clear to auscultation bilaterally. Normal respiratory effort. No respiratory distress. GI: Abdomen soft, nontender, nondistended, active bowel sounds x4 quadrants Neuro: CN II-XII intact. Mild right facial droop. Expressive aphasia. Strength 5/5, equal bilaterally Extremities: No edema, erythema, cyanosis Psych: Mood and affect appropriate. Expressive aphasia. Objective Labs 12/24/23 05:08 12/24/23 05:08 Medications and Allergies Allergies and Active Meds: Allergies Iodinated Contrast Media [From Contrast Media] Allergy (Severe, Verified 12/22/23 15:05) Anaphylaxis meperidine [Demerol] Allergy (Unknown, Verified 12/22/23 15:05) Unknown Reaction neomycin Allergy (Unknown, Verified 12/22/23 15:05) Unknown Reaction Active Medications Generic Name Dose Route Start Last Admin Trade Name Freq PRN Reason Stop Dose Admin Acetaminophen 500 mg 12/23/23 18:09 12/24/23 20:53 Acetaminophen 500 Mg Tablet PO 12/22/24 18:08 500 mg Q4H PRN Administration Pain Al Hydrox/Mg Hydrox/Simethicone 30 ml 12/23/23 18:09 Mag Hydrox/Al Hydrox/Simeth 30 Ml Udc PO 12/22/24 18:08 Q4H PRN Indigestion Amlodipine Besylate 5 mg 12/24/23 09:00 12/29/23 09:50 Amlodipine 5 Mg Tablet PO 12/23/24 08:59 5 mg DAILY GENEVIEVE Administration Aspirin 81 mg 12/24/23 09:00 12/29/23 09:50 Aspirin 81 Mg Tablet. PO 12/23/24 08:59 81 mg DAILY GENEVIEVE Administration Atorvastatin Calcium 40 mg 12/23/23 21:00 12/28/23 21:08 Atorvastatin 40 Mg Tablet PO 12/22/24 20:59 40 mg QPM GENEVIEVE Administration Bisacodyl 10 mg 12/23/23 18:09 Bisacodyl 10 Mg Supp.Rect OK 12/22/24 18:08 DAILY PRN Constipation Docusate Sodium 100 mg 12/23/23 18:09 Docusate 100 Mg Capsule PO 12/22/24 18:08 BID PRN Constipation Docusate Sodium 283 mg 12/23/23 18:09 Docusate Enema 283 Mg/5 Ml Enema OK 12/22/24 18:08 DAILY PRN Constipation Duloxetine HCl 60 mg 12/24/23 09:00 12/29/23 09:50 Duloxetine 60 Mg Capsule. PO 12/23/24 08:59 60 mg DAILY GENEVIEVE Administration Fluticasone Propionate 2 spray 12/23/23 18:08 Fluticasone Propionate Omaha 120 Omaha/16 Gm Bottle INTRANASAL 12/22/24 18:07 DAILY PRN allergy symptoms Heparin Sodium (Porcine) 5,000 unit 12/23/23 22:00 12/29/23 14:39 Heparin 5,000 Unit/Ml Vial SUBCUT 12/22/24 21:59 5,000 unit Q8HR GENEVIEVE Administration Hydrochlorothiazide 25 mg 12/24/23 09:00 12/29/23 09:50 Hydrochlorothiazide 25 Mg Tablet PO 12/23/24 08:59 25 mg DAILY GENEVIEVE Administration Lactulose 30 gm 12/23/23 18:09 Lactulose 20 Gm/30 Ml Udc PO 12/22/24 18:08 DAILY PRN Constipation Latanoprost 1 drops 12/24/23 09:00 12/29/23 09:51 Latanoprost 0.005% Op Soln 50 Drops/2.5 Ml Bottle EYE-BOTH 12/23/24 08:59 1 drops DAILY GENEVIEVE Administration Loratadine 10 mg 12/24/23 09:00 12/29/23 09:50 Loratadine 10 Mg Tablet PO 12/23/24 08:59 10 mg DAILY GENEVIEVE Administration Multivitamins 1 tab 12/24/23 09:00 12/29/23 09:50 Multivitamin 1 Tab Tablet PO 12/23/24 08:59 1 tab DAILY GENEVIEVE Administration Nystatin 1 applic 12/29/23 09:00 12/29/23 09:51 Nystatin 100,000 Unit/Gram Powder 15 Gm Bottle TOPICAL 12/28/24 08:59 1 applic BID GENEVIEVE Administration Sennosides 2 tab 12/24/23 12:00 Sennosides 8.6 Mg Tablet PO 12/23/24 11:59 DAILY@12 PRN If no BM in 2 days Sodium Chloride 0 ml 12/23/23 18:09 Sodium Chloride 0.9 % 10 Ml Syringe IV-PUSH 12/22/24 18:08 PRN PRN Flush Assessment/Plan Assessment/Plan (1) Acute CVA (cerebrovascular accident): (2) Oropharyngeal dysphagia: (3) Aphasic agraphia: (4) Expressive aphasia: (5) HTN (hypertension): (6) Anxiety: (7) Impaired mobility and activities of daily living: Plan 78-year-old female with past medical history of hypertension and anxiety who presents to acute inpatient rehabilitation unit with functional deficits secondary to acute ischemic stroke. She received TNKase without major improvement in her symptoms. Remains expressively aphasic * Stable. Expressive aphasia is improving a little. * VS wnl. * Functionally approaching her baseline. Likely home soon. Patient education Pressure ulcer prophylaxis; encourage mobilization, frequent postural changes, pressure-relief techniques DVT prophylaxis Encourage deep breathing exercise incentive spirometry. Monitor bladder. Toileting schedule. Continue current bladder management, with scans as needed and CIC if needed. Start bowel care program every day to obtain continence, prevent ileus. Maintain fall precautions Gait and balance retraining Functional training and self-care and home management, including activities of daily living and instrumental activities of daily living Provision of the necessary gait aids and functional adaptive equipment to enhance the patient's a functional bahai Ensure adequate nutrition and hydration Sleep Discharge planning. I spent 19 minutes for services, including [id number] encounter with the patient, discussion of the case, plan of care, and exam; and [id number] activities, such as reviewing pertinent mental health consultant documentation, recent therapy notes, laboratory and radiology studies, and discussion of case with care team including physician, nursing, case work aide, and therapists. More than 50 % of time was spent on patient/family counseling or coordination of care. <Statement entered by Avtar Barbosa MD - 12/30/23 13:16> This documentation has been reviewed and approved. Documented By: Loulou Newton APRN 12/29/23 1 623 Signed By: <Electronically signed by LIVAN Newton> 12/29/23 1637 <Electronically signed by Avtar Barbosa MD> 12/30/23 6419 [facility] Work Phone: 1(958) 815-794004-07-2024 Progress note Author Trey Guerra [facility] December 28, 2023 2:37pm Note Date/Time December 28, 2023 2:37 pm [facility] [address] [place] [address] Physiatry(Rehab) Progress Note Signed Patient: Moustapha Alejandra MR#: [id number] : 1945 Acct:[id number] Age/Sex: 78 / F Adm Date: 4 Loc: 5T Room: 7J4815-9 Type: ADM IN Attending Dr: Avtar Barbosa MD Copies to: ~ Date of Service: 12/28/2023 Subjective Subjective Narrative: Ms. Alejandra is a 78 year old female with past medical history of hypertension andanxiety, who presents to acute inpatient debilitation unit with functional impairments secondary to left MCA CVA. Patient was brought to the emergency department on 12/20 with complaints of facial drooping and expressive aphasia. Last known well approximately 3 hours prior. Patient was significantly hypertensive on arrival; improved with IV labetalol. Initial head CT and CTA head and neck were negative for acute findings. [facility] stroke team consulted, recommended TNK, which was administered in the emergency department. Patient was then admitted to intensive care unit for further workupand observation. Neurology was consulted. Recommended initiating atorvastatin and adding hours post TNK. Transthoracic echo demonstrated EF of 60 to 65% with mild concentric LVH, mildly dilated left atrium and mild mitral regurgitation. Brain MRI demonstrated focal recent infarction of the frontotemporal left MCA distribution. Neurology recommended continuing current treatment and a 30-day surveillance system monitor at discharge. Interval History: Ambulatory 400' in hallways. Still standby assist for cues/safety. Aphasia persists although expressive > receptive. Vitals are stable. No issues overnight. Review of Systems Review of Systems All other systems reviewed & are negative unless noted below or in HPI Exam Physical Exam Vital Signs: Temp Pulse Resp BP Pulse Ox O2 Del Method 97.8 F 81 16 116/74 98 Room Air 12/28/23 05:00 12/28/23 05:00 12/28/23 05:00 12/28/23 05:00 12/28/23 05:00 12/28/23 07:30 Narrative: General: Awake, alert, oriented x3 HENT: Normal to inspection, normocephalic, atraumatic Eyes: PERRL, normal conjunctiva and sclera Face: Mild right facial droop Neck: Normal ROM, normal visual inspection. Trachea midline. Cardio: Regular heart rate and rhythm Respiratory: Clear to auscultation bilaterally. Normal respiratory effort. No respiratory distress. GI: Abdomen soft, nontender, nondistended, active bowel sounds x4 quadrants Neuro: CN II-XII intact. Mild right facial droop. Expressive aphasia. Strength 5/5, equal bilaterally Extremities: No edema, erythema, cyanosis Psych: Mood and affect appropriate. Expressive aphasia. Objective Labs 12/24/23 05:08 12/24/23 05:08 Medications and Allergies Allergies and Active Meds: Allergies Iodinated Contrast Media [From Contrast Media] Allergy (Severe, Verified 12/22/23 15:05) Anaphylaxis meperidine [Demerol] Allergy (Unknown, Verified 12/22/23 15:05) Unknown Reaction neomycin Allergy (Unknown, Verified 12/22/23 15:05) Unknown Reaction Active Medications Generic Name Dose Route Start Last Admin Trade Name Freq PRN Reason Stop Dose Admin Acetaminophen 500 mg 12/23/23 18:09 12/24/23 20:53 Acetaminophen 500 Mg Tablet PO 12/22/24 18:08 500 mg Q4H PRN Administration Pain Al Hydrox/Mg Hydrox/Simethicone 30 ml 12/23/23 18:09 Mag Hydrox/Al Hydrox/Simeth 30 Ml Udc PO 12/22/24 18:08 Q4H PRN Indigestion Amlodipine Besylate 5 mg 12/24/23 09:00 12/28/23 08:31 Amlodipine 5 Mg Tablet PO 12/23/24 08:59 5 mg DAILY GENEVIEVE Administration Aspirin 81 mg 12/24/23 09:00 12/28/23 08:31 Aspirin 81 Mg Tablet. PO 12/23/24 08:59 81 mg DAILY GENEVIEVE Administration Atorvastatin Calcium 40 mg 12/23/23 21:00 12/27/23 22:08 Atorvastatin 40 Mg Tablet PO 12/22/24 20:59 40 mg QPM GENEVIEVE Administration Bisacodyl 10 mg 12/23/23 18:09 Bisacodyl 10 Mg Supp.Rect OK 12/22/24 18:08 DAILY PRN Constipation Docusate Sodium 100 mg 12/23/23 18:09 Docusate 100 Mg Capsule PO 12/22/24 18:08 BID PRN Constipation Docusate Sodium 283 mg 12/23/23 18:09 Docusate Enema 283 Mg/5 Ml Enema OK 12/22/24 18:08 DAILY PRN Constipation Duloxetine HCl 60 mg 12/24/23 09:00 12/28/23 08:30 Duloxetine 60 Mg Capsule. PO 12/23/24 08:59 60 mg DAILY GENEVIEVE Administration Fluticasone Propionate 2 spray 12/23/23 18:08 Fluticasone Propionate Omaha 120 Omaha/16 Gm Bottle INTRANASAL 12/22/24 18:07 DAILY PRN allergy symptoms Heparin Sodium (Porcine) 5,000 unit 12/23/23 22:00 12/28/23 06:13 Heparin 5,000 Unit/Ml Vial SUBCUT 12/22/24 21:59 5,000 unit Q8HR GENEVIEVE Administration Hydrochlorothiazide 25 mg 12/24/23 09:00 12/28/23 08:30 Hydrochlorothiazide 25 Mg Tablet PO 12/23/24 08:59 25 mg DAILY GENEVIEVE Administration Lactulose 30 gm 12/23/23 18:09 Lactulose 20 Gm/30 Ml Udc PO 12/22/24 18:08 DAILY PRN Constipation Latanoprost 1 drops 12/24/23 09:00 12/28/23 08:31 Latanoprost 0.005% Op Soln 50 Drops/2.5 Ml Bottle EYE-BOTH 12/23/24 08:59 1 drops DAILY GENEVIEVE Administration Loratadine 10 mg 12/24/23 09:00 12/28/23 08:30 Loratadine 10 Mg Tablet PO 12/23/24 08:59 10 mg DAILY GENEVIEVE Administration Multivitamins 1 tab 12/24/23 09:00 12/28/23 08:30 Multivitamin 1 Tab Tablet PO 12/23/24 08:59 1 tab DAILY GENEVIEVE Administration Sennosides 2 tab 12/24/23 12:00 Sennosides 8.6 Mg Tablet PO 12/23/24 11:59 DAILY@12 PRN If no BM in 2 days Sodium Chloride 0 ml 12/23/23 18:09 Sodium Chloride 0.9 % 10 Ml Syringe IV-PUSH 12/22/24 18:08 PRN PRN Flush Assessment/Plan Assessment/Plan (1) Acute CVA (cerebrovascular accident): (2) Oropharyngeal dysphagia: (3) Aphasic agraphia: (4) Expressive aphasia: (5) HTN (hypertension): (6) Anxiety: (7) Impaired mobility and activities of daily living: Plan 78-year-old female with past medical history of hypertension and anxiety who presents to acute inpatient rehabilitation unit with functional deficits secondary to acute ischemic stroke. She received TNKase without major improvement in her symptoms. Remains expressively aphasic * Continue aspirin and atorvastatin for secondary stroke prevention. * Monitor blood pressure closely. Per neurology, goal is to keep normotensive. * Tolerating therapy well and making functional gains. * Ambulatory 400' in hallways * Aphasia improving a little. Better word finding/written communication. * Home this week. Patient education Pressure ulcer prophylaxis; encourage mobilization, frequent postural changes, pressure-relief techniques DVT prophylaxis Encourage deep breathing exercise incentive spirometry. Monitor bladder. Toileting schedule. Continue current bladder management, with scans as needed and CIC if needed. Start bowel care program every day to obtain continence, prevent ileus. Maintain fall precautions Gait and balance retraining Functional training and self-care and home management, including activities of daily living and instrumental activities of daily living Provision of the necessary gait aids and functional adaptive equipment to enhance the patient's a functional bahai Ensure adequate nutrition and hydration Sleep Discharge planning. Patient was personally seen by me, Dr. Guerra, on the day of encounter, reviewed the history and the relevant portions of the chart, including current orders, allied health and mental health consultant notes, labs/imaging and performed bourgeois elements of exam and I formulated the plan of care and facilitated the medical decision making. I completed a substantive portion of this encounter, the medical decision making portion of this note in its entirety, including Allied health note review, nursing note review, mental health consultant note review, discussion with nursing and case management, and more than 50% of my time was spent on counseling and coordination of care, time spent 45 minutes. Documented By: Trey Guerra MD 12/28/23 1435 Signed By: <Electronically signed by Trey Guerra MD> 12/28/23 1437 [facility] Work Phone: 1(227) 743-737604-05-2024 Progress note Author Avtar Barbosa [facility] December 26, 2023 5:52pm Note Date/Time December 26, 2023 5:52 pm [facility] [address] [place] [address] Physiatry(Rehab) Progress Note Signed Patient: Moustapha Alejandra MR#: [id number] : 1945 Acct:[id number] Age/Sex: 78 / F Adm Date: 04/02/2 4 Loc: Room: 9B2683-8 Type: ADM IN Attending Dr: Avtar Barbosa MD Copies to: ~ Date of Service: 12/26/2023 Subjective Subjective Narrative: Ms. Alejandra is a 78 year old female with past medical history of hypertension andanxiety, who presents to acute inpatient debilitation unit with functional impairments secondary to left MCA CVA. Patient was brought to the emergency department on 12/20 with complaints of facial drooping and expressive aphasia. Last known well approximately 3 hours prior. Patient was significantly hypertensive on arrival; improved with IV labetalol. Initial head CT and CTA head and neck were negative for acute findings. [facility] stroke team consulted, recommended TNK, which was administered in the emergency department. Patient was then admitted to intensive care unit for further workupand observation. Neurology was consulted. Recommended initiating atorvastatin and adding [id number] hours post TNK. Transthoracic echo demonstrated EF of 60 to 65% with mild concentric LVH, mildly dilated left atrium and mild mitral regurgitation. Brain MRI demonstrated focal recent infarction of the frontotemporal left MCA distribution. Neurology recommended continuing current treatment and a 30-day surveillance system monitor at discharge. Patient seen and evaluated at bedside today. Sitting comfortably in wheelchair. In no distress. Has no acute concerns. Denies chest pain, SOB, fever, chills. tolerating therapy well. Review of Systems Review of Systems All other systems reviewed & are negative unless noted below or in HPI Exam Physical Exam Vital Signs: Temp Pulse Resp BP Pulse Ox O2 Del Method 97.6 F 88 16 150/82 H 98 Room Air 12/26/23 16:09 12/26/23 16:12/26/23 16:12/26/23 16:12/26/23 16:12/26/23 16:09 Narrative: General: Awake, alert, oriented x3 HENT: Normal to inspection, normocephalic, atraumatic Eyes: PERRL, normal conjunctiva and sclera Face: Mild right facial droop Neck: Normal ROM, normal visual inspection. Trachea midline. Cardio: Regular heart rate and rhythm Respiratory: Clear to auscultation bilaterally. Normal respiratory effort. No respiratory distress. GI: Abdomen soft, nontender, nondistended, active bowel sounds x4 quadrants Neuro: CN II-XII intact. Mild right facial droop. Expressive aphasia. Strength 5/5, equal bilaterally Extremities: No edema, erythema, cyanosis Psych: Mood and affect appropriate. Expressive aphasia. Objective Labs 12/24/23 05:08 12/24/23 05:08 Medications and Allergies Allergies and Active Meds: Allergies Iodinated Contrast Media [From Contrast Media] Allergy (Severe, Verified 12/22/23 15:05) Anaphylaxis meperidine [Demerol] Allergy (Unknown, Verified 12/22/23 15:05) Unknown Reaction neomycin Allergy (Unknown, Verified 12/22/23 15:05) Unknown Reaction Active Medications Generic Name Dose Route Start Last Admin Trade Name Freq PRN Reason Stop Dose Admin Acetaminophen 500 mg 12/23/23 18:09 12/24/23 20:53 Acetaminophen 500 Mg Tablet PO 12/22/24 18:08 500 mg Q4H PRN Administration Pain Al Hydrox/Mg Hydrox/Simethicone 30 ml 12/23/23 18:09 Mag Hydrox/Al Hydrox/Simeth 30 Ml Udc PO 12/22/24 18:08 Q4H PRN Indigestion Amlodipine Besylate 5 mg 12/24/23 09:00 12/26/23 09:46 Amlodipine 5 Mg Tablet PO 12/23/24 08:59 5 mg DAILY GENEVIEVE Administration Aspirin 81 mg 12/24/23 09:00 12/26/23 09:46 Aspirin 81 Mg Tablet.Dr MERCEDES 12/23/24 08:59 81 mg DAILY GENEVIEVE Administration Atorvastatin Calcium 40 mg 12/23/23 21:00 12/25/23 21:36 Atorvastatin 40 Mg Tablet PO 12/22/24 20:59 40 mg QPM GENEVIEVE Administration Bisacodyl 10 mg 12/23/23 18:09 Bisacodyl 10 Mg Supp.Rect OK 12/22/24 18:08 DAILY PRN Constipation Docusate Sodium 100 mg 12/23/23 18:09 Docusate 100 Mg Capsule PO 12/22/24 18:08 BID PRN Constipation Docusate Sodium 283 mg 12/23/23 18:09 Docusate Enema 283 Mg/5 Ml Enema OK 12/22/24 18:08 DAILY PRN Constipation Duloxetine HCl 60 mg 12/24/23 09:00 12/26/23 09:46 Duloxetine 60 Mg Capsule.Dr MERCEDES 12/23/24 08:59 60 mg DAILY GENEVIEVE Administration Fluticasone Propionate 2 spray 12/23/23 18:08 Fluticasone Propionate Omaha 120 Omaha/16 Gm Bottle INTRANASAL 12/22/24 18:07 DAILY PRN allergy symptoms Heparin Sodium (Porcine) 5,000 unit 12/23/23 22:00 12/26/23 14:05 Heparin 5,000 Unit/Ml Vial SUBCUT 12/22/24 21:59 5,000 unit Q8HR GENEVIEVE Administration Hydrochlorothiazide 25 mg 12/24/23 09:00 12/26/23 09:46 Hydrochlorothiazide 25 Mg Tablet PO 12/23/24 08:59 25 mg DAILY GENEVIEVE Administration Lactulose 30 gm 12/23/23 18:09 Lactulose 20 Gm/30 Ml Udc PO 12/22/24 18:08 DAILY PRN Constipation Latanoprost 1 drops 12/24/23 09:00 12/26/23 09:46 Latanoprost 0.005% Op Soln 50 Drops/2.5 Ml Bottle EYE-BOTH 12/23/24 08:59 1 drops DAILY GENEVIEVE Administration Loratadine 10 mg 12/24/23 09:00 12/26/23 09:46 Loratadine 10 Mg Tablet PO 12/23/24 08:59 10 mg DAILY GENEVIEVE Administration Multivitamins 1 tab 12/24/23 09:00 12/26/23 09:46 Multivitamin 1 Tab Tablet PO 12/23/24 08:59 1 tab DAILY GENEVIEVE Administration Sennosides 2 tab 12/24/23 12:00 Sennosides 8.6 Mg Tablet PO 12/23/24 11:59 DAILY@12 PRN If no BM in 2 days Sodium Chloride 0 ml 12/23/23 18:09 Sodium Chloride 0.9 % 10 Ml Syringe IV-PUSH 12/22/24 18:08 PRN PRN Flush Assessment/Plan Assessment/Plan (1) Acute CVA (cerebrovascular accident): (2) Oropharyngeal dysphagia: (3) Aphasic agraphia: (4) Expressive aphasia: (5) HTN (hypertension): (6) Anxiety: (7) Impaired mobility and activities of daily living: Plan 78-year-old female with past medical history of hypertension and anxiety who presents to acute inpatient rehabilitation unit with functional deficits secondary to acute ischemic stroke. She received TNKase without major improvement in her symptoms. Remains expressively aphasic * Continue aspirin and atorvastatin for secondary stroke prevention. * Monitor blood pressure closely. Per neurology, goal is to keep normotensive. * Tolerating therapy well and making functional gains. Patient education Pressure ulcer prophylaxis; encourage mobilization, frequent postural changes, pressure-relief techniques DVT prophylaxis Encourage deep breathing exercise incentive spirometry. Monitor bladder. Toileting schedule. Continue current bladder management, with scans as needed and CIC if needed. Start bowel care program every day to obtain continence, prevent ileus. Maintain fall precautions Gait and balance retraining Functional training and self-care and home management, including activities of daily living and instrumental activities of daily living Provision of the necessary gait aids and functional adaptive equipment to enhance the patient's a functional bahai Ensure adequate nutrition and hydration Sleep Discharge planning. Patient was personally seen by me, Dr. Barbosa, on the day of encounter, reviewed the history and the relevant portions of the chart, including current orders, allied health and mental health consultant notes, labs/imaging and performed bourgeois elements of exam and I formulated the plan of care and facilitated the medical decision making. I completed a substantive portion of this encounter, the medical decision making portion of this note in its entirety, including Allied health note review, nursing note review, mental health consultant note review, discussion with nursing and case management, and more than 50% of my time was spent on counseling and coordination of care, time spent 25 minutes. Documented By: Avtar Barbosa MD [id number] Signed By: <Electronically signed by Avtar Barbosa MD> 12/26/231751 [facility] Work Phone: 1(857) 582-417304-04-2024 Progress note Author Avtar Barbosa [facility] December 25, 2023 8:01pm Note Date/Time December 25, 2023 2:24 pm [facility] [address] [place] [address] Physiatry(Rehab) Progress Note Signed Patient: Moustapha Alejandra MR#: [id number] : 1945 Acct:[id number] Age/Sex: 78 / F Adm Date: 4 Loc: Room: [address] [place] [address] Type: ADM IN Attending Dr: Avtar Barbosa MD Copies to: ~ Date of Service: 12/25/2023 Subjective Subjective Narrative: Ms. Alejandra is a 78 year old female with past medical history of hypertension andanxiety, who presents to acute inpatient debilitation unit with functional impairments secondary to left MCA CVA. Patient was brought to the emergency department on 12/20 with complaints of facial drooping and expressive aphasia. Last known well approximately 3 hours prior. Patient was significantly hypertensive on arrival; improved with IV labetalol. Initial head CT and CTA head and neck were negative for acute findings. [facility] stroke team consulted, recommended TNK, which was administered in the emergency department. Patient was then admitted to intensive care unit for further workupand observation. Neurology was consulted. Recommended initiating atorvastatin and adding [id number] hours post TNK. Transthoracic echo demonstrated EF of 60 to 65% with mild concentric LVH, mildly dilated left atrium and mild mitral regurgitation. Brain MRI demonstrated focal recent infarction of the frontotemporal left MCA distribution. Neurology recommended continuing current treatment and a 30-day surveillance system monitor at discharge. Patient seen and evaluated at bedside today. Sitting comfortably in wheelchair next to bed. Appears in no distress. Answers no to chest pain, SOB, abdominal pain, fever, chills. Tolerating therapy well. Ambulatory functional distances. Review of Systems Review of Systems All other systems reviewed & are negative unless noted below or in HPI Exam Physical Exam Vital Signs: Temp Pulse Resp BP Pulse Ox O2 Del Method 97.8 F 78 17 148/86 H 96 Room Air 12/25/23 05:54 12/25/23 05:54 12/25/23 05:54 12/25/23 05:54 12/25/23 05:54 12/25/23 07:30 Narrative: General: Awake, alert, oriented x3 HENT: Normal to inspection, normocephalic, atraumatic Eyes: PERRL, normal conjunctiva and sclera Face: Mild right facial droop Neck: Normal ROM, normal visual inspection. Trachea midline. Cardio: Regular heart rate and rhythm Respiratory: Clear to auscultation bilaterally. Normal respiratory effort. No respiratory distress. GI: Abdomen soft, nontender, nondistended, active bowel sounds x4 quadrants Neuro: CN II-XII intact. Mild right facial droop. Expressive aphasia. Strength 5/5, equal bilaterally Extremities: No edema, erythema, cyanosis Psych: Mood and affect appropriate. Expressive aphasia. Objective Labs 12/24/23 05:08 12/24/23 05:08 Medications and Allergies Allergies and Active Meds: Allergies Iodinated Contrast Media [From Contrast Media] Allergy (Severe, Verified 12/22/23 15:05) Anaphylaxis meperidine [Demerol] Allergy (Unknown, Verified 12/22/23 15:05) Unknown Reaction neomycin Allergy (Unknown, Verified 12/22/23 15:05) Unknown Reaction Active Medications Generic Name Dose Route Start Last Admin Trade Name Freq PRN Reason Stop Dose Admin Acetaminophen 500 mg 12/23/23 18:09 12/24/23 20:53 Acetaminophen 500 Mg Tablet PO 12/22/24 18:08 500 mg Q4H PRN Administration Pain Al Hydrox/Mg Hydrox/Simethicone 30 ml 12/23/23 18:09 Mag Hydrox/Al Hydrox/Simeth 30 Ml Udc PO 12/22/24 18:08 Q4H PRN Indigestion Amlodipine Besylate 5 mg 12/24/23 09:00 12/25/23 08:42 Amlodipine 5 Mg Tablet PO 12/23/24 08:59 5 mg DAILY GENEVIEVE Administration Aspirin 81 mg 12/24/23 09:00 12/25/23 08:42 Aspirin 81 Mg Tablet. PO 12/23/24 08:59 81 mg DAILY GENEVIEVE Administration Atorvastatin Calcium 40 mg 12/23/23 21:00 12/24/23 20:53 Atorvastatin 40 Mg Tablet PO 12/22/24 20:59 40 mg QPM GENEVIEVE Administration Bisacodyl 10 mg 12/23/23 18:09 Bisacodyl 10 Mg Supp.Rect OK 12/22/24 18:08 DAILY PRN Constipation Docusate Sodium 100 mg 12/23/23 18:09 Docusate 100 Mg Capsule PO 12/22/24 18:08 BID PRN Constipation Docusate Sodium 283 mg 12/23/23 18:09 Docusate Enema 283 Mg/5 Ml Enema OK 12/22/24 18:08 DAILY PRN Constipation Duloxetine HCl 60 mg 12/24/23 09:00 12/25/23 08:42 Duloxetine 60 Mg Capsule.Dr MERCEDES 12/23/24 08:59 60 mg DAILY GENEVIEVE Administration Fluticasone Propionate 2 spray 12/23/23 18:08 Fluticasone Propionate Omaha 120 Omaha/16 Gm Bottle INTRANASAL 12/22/24 18:07 DAILY PRN allergy symptoms Heparin Sodium (Porcine) 5,000 unit 12/23/23 22:00 12/25/23 13:46 Heparin 5,000 Unit/Ml Vial SUBCUT 12/22/24 21:59 5,000 unit Q8HR GENEVIEVE Administration Hydrochlorothiazide 25 mg 12/24/23 09:00 12/25/23 08:42 Hydrochlorothiazide 25 Mg Tablet PO 12/23/24 08:59 25 mg DAILY GENEVIEVE Administration Lactulose 30 gm 12/23/23 18:09 Lactulose 20 Gm/30 Ml Udc PO 12/22/24 18:08 DAILY PRN Constipation Latanoprost 1 drops 12/24/23 09:00 12/25/23 08:43 Latanoprost 0.005% Op Soln 50 Drops/2.5 Ml Bottle EYE-BOTH 12/23/24 08:59 1 drops DAILY GENEVIEVE Administration Loratadine 10 mg 12/24/23 09:00 12/25/23 08:42 Loratadine 10 Mg Tablet PO 12/23/24 08:59 10 mg DAILY GENEVIEVE Administration Multivitamins 1 tab 12/24/23 09:00 12/25/23 08:43 Multivitamin 1 Tab Tablet PO 12/23/24 08:59 1 tab DAILY GENEVIEVE Administration Sennosides 2 tab 12/24/23 12:00 Sennosides 8.6 Mg Tablet PO 12/23/24 11:59 DAILY@12 PRN If no BM in 2 days Sodium Chloride 0 ml 12/23/23 18:09 Sodium Chloride 0.9 % 10 Ml Syringe IV-PUSH 12/22/24 18:08 PRN PRN Flush Assessment/Plan Assessment/Plan (1) Acute CVA (cerebrovascular accident): (2) Oropharyngeal dysphagia: (3) Aphasic agraphia: (4) Expressive aphasia: (5) HTN (hypertension): (6) Anxiety: (7) Impaired mobility and activities of daily living: Plan 78-year-old female with past medical history of hypertension and anxiety who presents to acute inpatient rehabilitation unit with functional deficits secondary to acute ischemic stroke. She received TNKase without major improvement in her symptoms. Remains expressively aphasic * Continue aspirin and atorvastatin for secondary stroke prevention. * Monitor blood pressure closely. Per neurology, goal is to keep normotensive. * Tolerating therapy well and making functional gains. Patient education Pressure ulcer prophylaxis; encourage mobilization, frequent postural changes, pressure-relief techniques DVT prophylaxis Encourage deep breathing exercise incentive spirometry. Monitor bladder. Toileting schedule. Continue current bladder management, with scans as needed and CIC if needed. Start bowel care program every day to obtain continence, prevent ileus. Maintain fall precautions Gait and balance retraining Functional training and self-care and home management, including activities of daily living and instrumental activities of daily living Provision of the necessary gait aids and functional adaptive equipment to enhance the patient's a functional bahai Ensure adequate nutrition and hydration Sleep Discharge planning. . Patient was personally seen by me, Dr. Barbosa, on the day of encounter, reviewed the history and the relevant portions of the chart, including current orders, allied health and mental health consultant notes, labs/imaging and performed bourgeois elements of exam and I formulated the plan of care and facilitated the medical decision making. I completed a substantive portion of this encounter, the medical decision making portion of this note in its entirety, including Allied health note review, nursing note review, mental health consultant note review, discussion with nursing and case management, and more than 50% of my time was spent on counseling and coordination of care, time spent 25 minutes. Documented By: Avtar Barbosa MD 1424 Signed By: <Electronically signed by Avtar Barbosa MD> 12/25/232000 [facility] Work Phone: 1(360) 683-642704-04-2024 Consult note Author Anjel So [facility] December 25, 2023 7:03am Note Date/Time December 24, 2023 12:1 0pm [facility] [address] [place] [address] Hospitalist Consult Note Signed Patient: Moustapha Alejandra MR#: [id number] : 1945 Acct:[id number] Age/Sex: 78 / F Adm Date: 4 Loc: Room: 5Y8424-5 Type: ADM IN Attending Dr: Avtar Barbosa MD Copies to: MD Hannah Mooney MD Linda Obika, LIVAN So MD~ HPI DATE OF CONSULTATION: 12/24/23 REQUESTING PROVIDER: Avtar Barbosa Consult Narrative Reason for Consult: Hypertension HPI: Kelly Alejandra 78-year-old female with a past medical history of hypertension and anxiety who presented to the emergency department with right facial droop and expressive aphasia. In the ED, she received TNK as she was within the window for thrombolytics and was therefore admitted to medical ICU. She was MRI brain showed left frontal lobe acute ischemic stroke. She was seen and evaluated by neurology and was started on aspirin 81 mg daily, atorvastatin 40 mg daily. Shewas also recommended for 30-day cardiac event monitor eventually. During her hospital stay, she had slight improvement in her expressive aphasia. She was seen and evaluated by PT/OT who recommended acute inpatient rehabilitation. Thehospitalist team has been consulted for medical management of hypertension. Patient seen and examined, sitting up in chair, denies any pain or discomfort. Denies chest pain or palpitation. No cough, dyspnea, or pain with inspiration. No abdominal pain or indigestion, constipation or diarrhea, nausea or vomiting. No dysuria or retention. No headache or dizziness. No fevers Review of Systems Review of Systems Review of systems: 10 point review of systems obtained, negative unless noted in the HPI below PMFSH Source: Old Records Reviewed Medical History Anxiety HTN (hypertension) Family History Father Mother Social History Smoking Status: Never smoker Substance Use Type: None Meds Medications and Allergies Allergies Iodinated Contrast Media [From Contrast Media] Allergy (Severe, Verified 12/22/23 15:05) Anaphylaxis meperidine [Demerol] Allergy (Unknown, Verified 12/22/23 15:05) Unknown Reaction neomycin Allergy (Unknown, Verified 12/22/23 15:05) Unknown Reaction Home Medications amlodipine 5 mg tablet 5 mg PO DAILY 12/21/23 [History Confirmed 12/23/23] duloxetine 60 mg capsule,delayed release 60 mg PO DAILY 12/21/23 [History Confirmed 12/23/23] fexofenadine 60 mg tablet (Graciela Allergy) 60 mg PO BID 12/21/23 [History Confirmed 12/23/23] fluticasone propionate 50 mcg/actuation nasal spray,suspension (Allergy Relief (fluticasone)) 2 spray intranasal DAILY PRN allergy symptoms 12/21/23 [History Confirmed 12/23/23] hydrochlorothiazide 25 mg tablet 25 mg PO DAILY 12/21/23 [History Confirmed 12/23/23] latanoprost 0.005 % eye drops 1 drp Eye-Both DAILY 12/21/23 [History Confirmed 12/23/23] multivitamin (Daily Multi-Vitamin tablet) 1 tab PO DAILY 12/21/23 [History Confirmed 12/23/23] aspirin 81 mg tablet,delayed release 81 mg PO DAILY #30 tabs 12/23/23 [Rx Confirmed 12/23/23] atorvastatin 40 mg tablet 40 mg PO QPM #30 tabs 12/23/23 [Rx Confirmed 12/23/23] Active Medications: Active Medications Generic Name Dose Route Start Last Admin Trade Name Freq PRN Reason Stop Dose Admin Acetaminophen 500 mg 12/23/23 18:09 Acetaminophen 500 Mg Tablet PO 12/22/24 18:08 Q4H PRN Pain Al Hydrox/Mg Hydrox/Simethicone 30 ml 12/23/23 18:09 Mag Hydrox/Al Hydrox/Simeth 30 Ml Udc PO 12/22/24 18:08 Q4H PRN Indigestion Amlodipine Besylate 5 mg 12/24/23 09:00 12/24/23 08:11 Amlodipine 5 Mg Tablet PO 12/23/24 08:59 5 mg DAILY GENEVIEVE Administration Aspirin 81 mg 12/24/23 09:00 12/24/23 08:11 Aspirin 81 Mg Tablet.Dr PO 12/23/24 08:59 81 mg DAILY GENEVIEVE Administration Atorvastatin Calcium 40 mg 12/23/23 21:00 12/23/23 22:17 Atorvastatin 40 Mg Tablet PO 12/22/24 20:59 40 mg QPM GENEVIEVE Administration Bisacodyl 10 mg 12/23/23 18:09 Bisacodyl 10 Mg Supp.Rect OK 12/22/24 18:08 DAILY PRN Constipation Docusate Sodium 100 mg 12/23/23 18:09 Docusate 100 Mg Capsule PO 12/22/24 18:08 BID PRN Constipation Docusate Sodium 283 mg 12/23/23 18:09 Docusate Enema 283 Mg/5 Ml Enema OK 12/22/24 18:08 DAILY PRN Constipation Duloxetine HCl 60 mg 12/24/23 09:00 12/24/23 08:11 Duloxetine 60 Mg Capsule. PO 12/23/24 08:59 60 mg DAILY GENEVIEVE Administration Fluticasone Propionate 2 spray 12/23/23 18:08 Fluticasone Propionate Omaha 120 Omaha/16 Gm Bottle INTRANASAL 12/22/24 18:07 DAILY PRN allergy symptoms Heparin Sodium (Porcine) 5,000 unit 12/23/23 22:00 12/24/23 06:07 Heparin 5,000 Unit/Ml Vial SUBCUT 12/22/24 21:59 5,000 unit Q8HR GENEVIEVE Administration Hydrochlorothiazide 25 mg 12/24/23 09:00 12/24/23 08:11 Hydrochlorothiazide 25 Mg Tablet PO 12/23/24 08:59 25 mg DAILY GENEVIEVE Administration Lactulose 30 gm 12/23/23 18:09 Lactulose 20 Gm/30 Ml Udc PO 12/22/24 18:08 DAILY PRN Constipation Latanoprost 1 drops 12/24/23 09:00 12/24/23 10:40 Latanoprost 0.005% Op Soln 50 Drops/2.5 Ml Bottle EYE-BOTH 12/23/24 08:59 1drops DAILY GENEVIEVE Administration Loratadine 10 mg 12/24/23 09:00 12/24/23 08:11 Loratadine 10 Mg Tablet PO 12/23/24 08:59 10 mg DAILY GENEVIEVE Administration Multivitamins 1 tab 12/24/23 09:00 12/24/23 08:11 Multivitamin 1 Tab Tablet PO 12/23/24 08:59 1 tab DAILY GENEVIEVE Administration Sennosides 2 tab 12/24/23 12:00 Sennosides 8.6 Mg Tablet PO 12/23/24 11:59 DAILY@12 PRN If no BM in 2 days Sodium Chloride 0 ml 12/23/23 18:09 Sodium Chloride 0.9 % 10 Ml Syringe IV-PUSH 12/22/24 18:08 PRN PRN Flush Exam Physical Exam Vital Signs: Temp Pulse Resp BP Pulse Ox O2 Del Method 97.6 F 78 18 150/79 H 96 Room Air 12/24/23 12:02 12/24/23 12:02 12/24/23 12:02 12/24/23 12:02 12/24/23 12:02 12/24/23 12:02 Narrative: CONST- Appears well -developed and well nourished No acute distress. HEAD - Normocephalic and atraumatic EENT-Sclera nonicteric and conjunctive are nonerythemic, moist oral mucosa, pharynx clear NECK-Supple, no cervical lymphadenopathy CARDIAC-normal rate, regular rhythm, normal S1 & S2. PULM-diminished without wheeze or rhonchi, RA, no accessory muscle use or cough noted ABD - Soft. Bowel sounds are normal. No distention No tenderness EXTREM-no edema BLE calves nontender SKIN- W/D good turgo MS- MAEX4 spontaneously with equal with equal strength NEURO- A&Ox3 speech clear and tongue midline, equal facial symmetry no focal motor deficits PSYCH-Mood, affect and behavior appropriate Results - Hospitalist Consult Lab Results Labs: Laboratory Results - last 72 hr 12/24/23 05:08: Corrected WBC 6.9, Uncorrected WBC Count 6.9, RBC 4.79, Hgb 14.1, Hct 42.3, MCV 88.3, MCH 29.4, MCHC 33.3, RDW 13.8, Plt Count 174, MPV 8.9,Neut % (Auto) 66.0, Lymph % (Auto) 19.7, Bowie % (Auto) 9.8, Eos % (Auto) 3.8, Baso % (Auto) 0.7, Nucleat RBC Rel Count 0.1, Neut # (Auto) 4.5, Lymph # (Auto) 1.4, Bowie # (Auto) 0.7, Eos # (Auto) 0.3, Baso # (Auto) 0.1, PHA Creatinine Clear 52.15, Sodium 139, Potassium 3.8, Chloride 103, Carbon Dioxide 31.0, AnionGap 8.8, BUN 18, Creatinine 0.94, Est GFR (CKD-EPI) > 60.0, Glucose 104 H, Calcium 8.9, Total Bilirubin 0.4, AST 12 L, ALT 8, Alkaline Phosphatase 72, Total Protein 5.8 L, Albumin 3.7, Globulin 2.1, Albumin/Globulin Ratio 1.8, Prealbumin 23.0 Assessment & Plan Assessment/Plan (1) Acute CVA (cerebrovascular accident): (2) HTN (hypertension): (3) Impaired mobility and activities of daily living: (4) Oropharyngeal dysphagia: Plan Acute CVA (cerebrovascular accident) Impaired mobility and activities of daily living * Plan of care for rehabilitation, PT/OT, DVT prophylaxis, bowel regimen per PM&R team * On aspirin and atorvastatin for stroke prevention Hypertension?on amlodipine, uncontrolled, started on hydrochlorothiazide today, will monitor and adjust accordingly Depression?on Cymbalta Documented By: Fatemeh Pacheco APRN 12/24/23 1208 Signed By: <Electronically signed by LIVAN Pacheco> 12/24/23 1831 <Electronically signed by Anjel So MD> 12/25/23 0703 [facility] Work Phone: 1(800) 428-860804-03-2024 History and physical note Author Avtar Barbosa [facility] December 24, 2023 7:17pm Note Date/Time December 24, 2023 10:4 0am [facility] [address] [place] [address] Physiatry (Rehab) H&P Signed Patient: Moustapha Alejandra MR#: [id number] : 1945 Acct:[id number] Age/Sex: 78 / F Adm Date: 4 Loc: Room: [address] [place] [address] Type: ADM IN Attending Dr: Avtar Barbosa MD Copies to: MD Loulou Mooney, LIVAN Gruber MD~ Date of Service: 12/24/2023 HPI The patient was seen and examined on: 12/24/23 History of Present Illness: Ms. Alejandra is a 78 year old female with past medical history of hypertension andanxiety, who presents to acute inpatient debilitation unit with functional impairments secondary to left MCA CVA. Patient was brought to the emergency department on 12/20 with complaints of facial drooping and expressive aphasia. Last known well approximately 3 hours prior. Patient was significantly hypertensive on arrival; improved with IV labetalol. Initial head CT and CTA head and neck were negative for acute findings. [facility] stroke team consulted, recommended TNK, which was administered in the emergency department. Patient was then admitted to intensive care unit for further workupand observation. Neurology was consulted. Recommended initiating atorvastatin and adding hours post TNK. Transthoracic echo demonstrated EF of 60 to 65% with mild concentric LVH, mildly dilated left atrium and mild mitral regurgitation. Brain MRI demonstrated focal recent infarction of the frontotemporal left MCA distribution. Neurology recommended continuing current treatment and a 30-day surveillance system monitor at discharge. Patient is alert, pleasant, cooperative on admission to acute rehab. She remains aphasic but does not provide yes/no answers appropriately. She has mildright facial droop, otherwise no pronounced neurological deficits. Denies visual disturbances or difficulty swallowing. She reports no pain. Denies cardiopulmonary complaints. No GI or symptoms. [facility]LY [facility], [facility] Medical History Anxiety HTN (hypertension) Family History Father Mother Social History Smoking Status: Never smoker Substance Use Type: None Review of Systems Review of Systems All other systems reviewed & are negative unless noted below or in HPI Meds Medications and Allergies Allergies Iodinated Contrast Media [From Contrast Media] Allergy (Severe, Verified 12/22/23 15:05) Anaphylaxis meperidine [Demerol] Allergy (Unknown, Verified 12/22/23 15:05) Unknown Reaction neomycin Allergy (Unknown, Verified 12/22/23 15:05) Unknown Reaction Home and Active Meds: Home Medications amlodipine 5 mg tablet 5 mg PO DAILY 12/21/23 [History Confirmed 12/23/23] duloxetine 60 mg capsule,delayed release 60 mg PO DAILY 12/21/23 [History Confirmed 12/23/23] fexofenadine 60 mg tablet (Graciela Allergy) 60 mg PO BID 12/21/23 [History Confirmed 12/23/23] fluticasone propionate 50 mcg/actuation nasal spray,suspension (Allergy Relief (fluticasone)) 2 spray intranasal DAILY PRN allergy symptoms 12/21/23 [History Confirmed 12/23/23] hydrochlorothiazide 25 mg tablet 25 mg PO DAILY 12/21/23 [History Confirmed 12/23/23] latanoprost 0.005 % eye drops 1 drp Eye-Both DAILY 12/21/23 [History Confirmed 12/23/23] multivitamin (Daily Multi-Vitamin tablet) 1 tab PO DAILY 12/21/23 [History Confirmed 12/23/23] aspirin 81 mg tablet,delayed release 81 mg PO DAILY #30 tabs 12/23/23 [Rx Confirmed 12/23/23] atorvastatin 40 mg tablet 40 mg PO QPM #30 tabs 12/23/23 [Rx Confirmed 12/23/23] Active Medications Acetaminophen (Acetaminophen 500 Mg Tablet) 500 mg PO Q4H PRN PRN Reason: Pain Stop: 12/22/24 18:08 Al Hydrox/Mg Hydrox/Simethicone (Mag Hydrox/Al Hydrox/Simeth 30 Ml Udc) 30 ml PO Q4H PRN PRN Reason: Indigestion Stop: 12/22/24 18:08 Amlodipine Besylate (Amlodipine 5 Mg Tablet) 5 mg PO DAILY [facility] Stop: 12/23/24 08:59 Last Admin: 12/24/23 08:11 Dose: 5 mg Aspirin (Aspirin 81 Mg Tablet.) 81 mg PO DAILY [facility] Stop: 12/23/24 08:59 Last Admin: 12/24/23 08:11 Dose: 81 mg Atorvastatin Calcium (Atorvastatin 40 Mg Tablet) 40 mg PO QPM [facility] Stop: 12/22/24 20:59 Last Admin: 12/23/23 22:17 Dose: 40 mg Bisacodyl (Bisacodyl 10 Mg Supp.Rect) 10 mg OK DAILY PRN PRN Reason: Constipation Stop: 12/22/24 18:08 Docusate Sodium (Docusate 100 Mg Capsule) 100 mg PO BID PRN PRN Reason: Constipation Stop: 12/22/24 18:08 Docusate Sodium (Docusate Enema 283 Mg/5 Ml Enema) 283 mg OK DAILY PRN PRN Reason: Constipation Stop: 12/22/24 18:08 Duloxetine HCl (Duloxetine 60 Mg Capsule.) 60 mg PO DAILY [facility] Stop: 12/23/24 08:59 Last Admin: 12/24/23 08:11 Dose: 60 mg Fluticasone Propionate (Fluticasone Propionate Omaha 120 Omaha/16 Gm Bottle) 2 spray INTRANASAL DAILY PRN PRN Reason: allergy symptoms Stop: 12/22/24 18:07 Heparin Sodium (Porcine) (Heparin 5,000 Unit/Ml Vial) 5,000 unit SUBCUT Q8HR [facility] Stop: 12/22/24 21:59 Last Admin: 12/24/23 06:07 Dose: 5,000 unit Hydrochlorothiazide (Hydrochlorothiazide 25 Mg Tablet) 25 mg PO DAILY [facility] Stop: 12/23/24 08:59 Last Admin: 12/24/23 08:11 Dose: 25 mg Lactulose (Lactulose 20 Gm/30 Ml Udc) 30 gm PO DAILY PRN PRN Reason: Constipation Stop: 12/22/24 18:08 Latanoprost (Latanoprost 0.005% Op Soln 50 Drops/2.5 Ml Bottle) 1 drops EYE-BOTH DAILY [facility] Stop: 12/23/24 08:59 Loratadine (Loratadine 10 Mg Tablet) 10 mg PO DAILY [facility] Stop: 12/23/24 08:59 Last Admin: 12/24/23 08:11 Dose: 10 mg Multivitamins (Multivitamin 1 Tab Tablet) 1 tab PO DAILY [facility] Stop: 12/23/24 08:59 Last Admin: 12/24/23 08:11 Dose: 1 tab Sennosides (Sennosides 8.6 Mg Tablet) 2 tab PO DAILY@12 PRN PRN Reason: If no BM in 2 days Stop: 12/23/24 11:59 Sodium Chloride (Sodium Chloride 0.9 % 10 Ml Syringe) 0 ml IV-PUSH PRN PRN PRN Reason: Flush Stop: 12/22/24 18:08 Exam Physical Exam Vital Signs: Temp Pulse Resp BP Pulse Ox O2 Del Method 97.6 F 82 18 148/88 H 97 Room Air 12/24/23 08:32 12/24/23 08:32 12/24/23 08:32 12/24/23 08:32 12/24/23 08:32 12/24/23 08:32 Narrative: General: Awake, alert, oriented x3 HENT: Normal to inspection, normocephalic, atraumatic Eyes: PERRL, normal conjunctiva and sclera Face: Mild right facial droop Neck: Normal ROM, normal visual inspection. Trachea midline. Cardio: Regular heart rate and rhythm Respiratory: Clear to auscultation bilaterally. Normal respiratory effort. No respiratory distress. GI: Abdomen soft, nontender, nondistended, active bowel sounds x4 quadrants Neuro: CN II-XII intact. Mild right facial droop. Expressive aphasia. Strength 5/5, equal bilaterally Extremities: No edema, erythema, cyanosis Psych: Mood and affect appropriate. Expressive aphasia. Results - Phys. Rehab Labs Labs: Laboratory Results - last 24 hr 12/24/23 05:08 Corrected WBC 6.9 Uncorrected WBC Count 6.9 RBC 4.79 Hgb 14.1 Hct 42.3 MCV 88.3 MCH 29.4 MCHC 33.3 RDW 13.8 Plt Count 174 MPV 8.9 Neut % (Auto) 66.0 Lymph % (Auto) 19.7 Bowie % (Auto) 9.8 Eos % (Auto) 3.8 Baso % (Auto) 0.7 Nucleat RBC Rel Count 0.1 Neut # (Auto) 4.5 Lymph # (Auto) 1.4 Bowie # (Auto) 0.7 Eos # (Auto) 0.3 Baso # (Auto) 0.1 PHA Creatinine Clear 52.15 Sodium 139 Potassium 3.8 Chloride 103 Carbon Dioxide 31.0 Anion Gap 8.8 BUN 18 Creatinine 0.94 Est GFR (CKD-EPI) > 60.0 Glucose 104 H Calcium 8.9 Total Bilirubin 0.4 AST 12 L ALT 8 Alkaline Phosphatase 72 Total Protein 5.8 L Albumin 3.7 Globulin 2.1 Albumin/Globulin Ratio 1.8 Prealbumin 23.0 Additional Results Results Comment: I reviewed clinical lab tests, radiology reports and obtained and summated medical records and have ordered follow up lab tests and imaging studies as needed for rehabilitation care. Functional Status Prior Level of Function Narrative: Patient was previously independent. Current Level of Function Narrative: Acquired CGA with transfers and bed mobility. Ambulatory functional distances with a walker and contact-guard/min assist Individualized Plan of Care Individualized Plan of Care Plan of Care: Individualized Overall Plan of Care: Admit Date/Time: 12/23/23 Expected LOS: 14 Days Expected Discharge Destination: Home Rehabilitation IGC: 1.2 Primary Diagnosis: as above Patient?s/Family?s anticipated outcomes/personal goals: To have patient become more independent and to return home. Medical/ Functional Prognosis: Good Anticipated Functional Outcomes/Goals and Interventions: -Therapy Functional Outcome/Goal: Mobility/Locomotion: Patient likely to be independent with ambulation with assistive device. Anticipated interventions: Physician management, PT, OT, Dietitian, Rehab Nursing - Therapy Functional Outcome/Goal: Self Care: Patient likely to be functionally independent for activities of daily living using assistive / adaptive equipment as needed. Anticipated interventions: Physician management, PT, OT, Dietitian, Rehab Nursing - Therapy Functional Outcome/Goal: Bladder/Bowel Management: Patient likely to be independent with bladder care and independent with bowel care. Anticipated interventions: Physician management, PT, OT, Dietitian, Rehab Nursing -Therapy Functional Outcome/Goal: Communication/Cognition: Patient will be able to communicate fully and be safe cognitively. Anticipated interventions: Physician management, PT, OT, Dietitian, Rehab Nursing -Therapy Functional Outcome/Goal: Patient will be independent for bed mobility and transfers Anticipated interventions: Physician management, PT, OT, Dietitian, Rehab Nursing -Therapy Functional Outcome/Goal: Patient will improve endurance to be able to tolerate all daily self care activities and avocational activities. Anticipated interventions: Physician management, PT, OT, Nutrition, Rehab Nursing -Therapy Functional Outcome/Goal: Patient will understand and assimilate / integrate education regarding management of their medical conditions to maintainhealth and wellbeing. Anticipated interventions: Physician management, PT, OT, Dietitian, Rehab Nursing Required Therapy PT: 1.5 hour per day at least 5 days per week with additional therapy on as needed basis. Comments: PT to improve pt's strength, endurance, bed mobility, transfers (sit-stand), standing balance, gait quality on level surfaces and stairs, coordination and functional ADL skills. Will also work to improve pt's safety awareness during transfers and ambulation. OT: 1.5 hour per day at least 5 days per week with additional therapy on as needed basis. Comments: OT for basic ADL re-training (bathing, dressing, toileting, continence, grooming, feeding, transferring), to increase activity tolerance andfunctional mobility and to evaluate for adaptive and assistive devices. Will work to improve pt's endurance and educate pt on fall prevention and energy conservation techniques-pacing strategies and proper breathing techniques duringfunctional tasks. Other: Nutrition, Rehab nursing, Wound, P&O RATIONALE FOR IRF ADMISSION: Patient has both medical and functional complexities that require 24 hour daily monitoring and intervention from Executive Compensation Analyst as well as other consulting physicians including internal medicine as well as 24 hour daily software quality assurance engineer nursing - for medical safe / optimal management. Patient requires interdisciplinary therapy team rehabilitation care including OT, PT, SW, Rehab Nursing, requires and can tolerate at least 3 hoursof daily OT and PT therapy at least 5 days weekly. The following medical conditions significantly impact the rehabilitation process and are being addressed daily and can not be managed at home or in a lesser intense medical setting: Refer to above problem oriented plan of care Assessment/Plan (1) Acute CVA (cerebrovascular accident): (2) Oropharyngeal dysphagia: (3) Aphasic agraphia: (4) Expressive aphasia: (5) HTN (hypertension): (6) Anxiety: (7) Impaired mobility and activities of daily living: Plan 78-year-old female with past medical history of hypertension and anxiety who presents to acute inpatient rehabilitation unit with functional deficits secondary to acute ischemic stroke. She received TNKase without major improvement in her symptoms. Remains expressively aphasic * Continue aspirin and atorvastatin for secondary stroke prevention. * Monitor blood pressure closely. Per neurology, goal is to keep normotensive. * Admission labs reviewed, unremarkable. Patient education Pressure ulcer prophylaxis; encourage mobilization, frequent postural changes, pressure-relief techniques DVT prophylaxis Encourage deep breathing exercise incentive spirometry. Monitor bladder. Toileting schedule. Continue current bladder management, with scans as needed and CIC if needed. Start bowel care program every day to obtain continence, prevent ileus. Maintain fall precautions Gait and balance retraining Functional training and self-care and home management, including activities of daily living and instrumental activities of daily living Provision of the necessary gait aids and functional adaptive equipment to enhance the patient's a functional bahai Ensure adequate nutrition and hydration Sleep Discharge planning. I spent 38 minutes for services, including [id number] encounter with the patient, discussion of the case, plan of care, and exam; and [id number] activities, such as reviewing pertinent mental health consultant documentation, recent therapynotes, laboratory and radiology studies, and discussion of case with care team including physician, nursing, case work aide, and therapists. More than 50 % of time was spent on patient/family counseling or coordination ofcare. Patient was personally seen by me, Dr. Barbosa, on the day of encounter, within 24 hours of rehab admission, reviewed the history and the relevant portions of the chart, including current orders, allied health and mental health consultant notes, labs/imaging and performed bourgeois elements of exam and I formulated the planof care and facilitated the medical decision making. I completed a substantive portion of this encounter, the medical decision makingportion of this note in its entirety, including Allied health note review, nursing note review, mental health consultant note review, discussion with nursing and case management, and more than 50% of my time was spent on counseling and coordination of care, time spent 75 minutes. Agree with above. Patient presents following CVA with residual expressive aphasia. Strength well preserved. Patient able to answer yes/no questions appropriately. No major concerns today. Reviewed admission labs. Wnl. Remains mildly hypertensive. Goal to be normotensive. Documented By: Loulou Newton APRN 12/24/23 1 038 Signed By: <Electronically signed by LIVAN Newton> 12/24/23 1213 <Electronically signed by Avtar Barbosa MD> 12/24/23 1428 [facility] Work Phone: 1(765) 727-882804-02-2024 Discharge summary Author Marcelle Gaston [facility] December 23, 2023 3:10pm Note Date/Time December 23, 2023 3:10 pm [facility] [address] [place] [address] Discharge Summary Signed Patient: Moustapha Alejandra MR#: [id number] : 1945 Acct:[id number] Age/Sex: 78 / F Adm Date: 4 Loc: Room: [address] [place] [address]: Marcelle Gaston DO Copies to: MD Marcelle Noyola, DO~ Providers Date of Discharge: 12/23/23 Discharging Provider: Marcelle Gaston Primary Care Provider: Hannah Gruber Consults: 12/21/23 22:10 Consult to Telemedicine Stat Comment: Reason for Consult: stroke alert/standby 12/21/23 23:56 Consult to Neurology Routine Comment: CVA s/p TNKase Consulting Provider: Dave Naylor Reason For Exam: cva s/p TNKase Has Provider Been Notified: Yes Date of Notification: 12/22/23 Time of Notification: 08:02 Consult to Pulmonology Routine Comment: Consulting Provider: Michael Michele Reason For Exam: Critical Care Management Has Provider Been Notified: Yes Date of Notification: 12/22/23 Time of Notification: 08:01 12/21/23 23:59 Consult to Occupational Therapy Routine Comment: Physician Instructions: Consult to OT for:: Evaluation and Treat Consult to Physical Therapy Routine Comment: Physician Instructions: Consult to PT for:: Evaluation and Treat Consult to Speech Therapy Routine Comment: Reason for ST Consult: Bedside Swallow Eval & Tx Diet per ST Recommendations: Yes Contact Physician Before Ordering Diet: No Modified Barium Swallow Study, If Recommended: Yes 12/22/23 09:45 Consult to Physiatry Routine Comment: Consulting Provider: Trey Guerra Reason For Exam: rehabilitation needs/post acute care planning Has Provider Been Notified: Yes Date of Notification: 12/22/23 Time of Notification: 09:46 Consult to Speech Therapy Routine Comment: Reason for ST Consult: Speech/Language Eval & Tx Discharge Diagnosis (1) Acute CVA (cerebrovascular accident): (2) HTN (hypertension): Final Diagnosis Final Discharge Diagnosis: Acute CVA Expressive aphasia Hypertension Summary Hospital Course Hospital course: 78-year-old female with a past medical history of hypertension presented to hospital with expressive aphasia. She received TNK as she presented to the hospital within the window for thrombolytics. She was admitted to medical ICU. She had slight improvement in her expressive aphasia. She did not have any deficits of numbness or weakness otherwise. CT of the head did not show any acute bleeding 24 hours post TNK. Neurology cleared the patient for discharge to acute rehab. Patient was started on statin and aspirin. She will continue her rehabilitation program at [facility] acute rehab. She will need to follow-upwith neurology as outpatient postdischarge. Condition Condition at Discharge: Stable Time Spent with Patient Time spent providing/coordinating discharge services (# min): 35 Diagnostic Studies Completed and Pending Studies Pending studies at discharge: 12/23/23 23:55 MR head/brain wo con Routine Labs on day of discharge: 12/23/23 11:27: POC Glucose 100 12/23/23 04:25: Corrected WBC 7.4, Uncorrected WBC Count 7.4, RBC 4.91, Hgb 14.2, Hct 43.2, MCV 88.0, MCH 29.0, MCHC 32.9, RDW 14.0, Plt Count 186, MPV 8.8,Neut % (Auto) 70.6, Lymph % (Auto) 17.3, Bowie % (Auto) 8.9, Eos % (Auto) 2.7, Baso % (Auto) 0.5, Nucleat RBC Rel Count 0.1, Neut # (Auto) 5.2, Lymph # (Auto) 1.3, Bowie # (Auto) 0.7, Eos # (Auto) 0.2, Baso # (Auto) 0.0, PHA Creatinine Clear 60.34, Sodium 140, Potassium 3.7, Chloride 102, Carbon Dioxide 29.5, AnionGap 12.2, BUN 13, Creatinine 0.81, Est GFR (CKD-EPI) > 60.0, Glucose 103 H, Calcium 9.6 12/22/23 17:03: POC Glucose 98, POC Glucose Comment Glu2: cleaned meter Exam Physical Exam Vital Signs: Temp Pulse Resp BP Pulse Ox O2 Del Method 98.0 F 93 18 178/86 H 99 Room Air 12/23/23 12:00 12/23/23 13:00 12/23/23 13:00 12/23/23 13:00 12/23/23 13:12/23/23 09:00 Narrative: Generally no acute distress, lying in her hospital bed in the ICU HEENT: Head is atraumatic normocephalic, trachea midline Heart is regular rate and rhythm Lungs are clear bilaterally Abdomen soft nontender nondistended Extremities no edema, pulses intact Neurologically: Alert, has expressive aphasia, following commands appropriately,answers yes and no to questions appropriately, strength 5 out of 5 upper and lower extremity and symmetric, sensation intact Discharge Plan Discharge Plan Patient Disposition: [facility] [place]: Ambulate as Tolerated and With Assist Diet: Other Comment: See speech recommendations Additional Instructions: Rehab to manage care: - Full code - PT/OT to eval and treat - Vital signs per protocol - Speech Recommendations: - Dental soft, chopped meats - Thin liquids, straws allowed on tray - Extra bowl of gravy/sauce/broth - 90 degrees, small bites/sips, alternate liquids/solids, slow pace - Monitor Neuro assessment: CVA - Maintain high risk falls precautions - Care to be managed by Rehab providers Prescriptions: New aspirin 81 mg Tablet,Delayed Release (Dr/Ec) 81 mg PO DAILY Qty: 30 0RF atorvastatin 40 mg Tablet 40 mg PO QPM Qty: 30 0RF Continued amlodipine 5 mg tablet 5 mg PO DAILY Rx Instructions: FreeTextSi tablet Orally Once a day; Note: Source Status: Taking; Provider: Татьяна Freitas ( ) fexofenadine [Graciela Allergy] 60 mg tablet 60 mg PO BID duloxetine 60 mg capsule,delayed release(DR/EC) 60 mg PO DAILY Rx Instructions: FreeTextSi capsule Orally Once a day; Note: Source Status: Taking; Provider: Татьяна Freitas ( ) hydrochlorothiazide 25 mg tablet 25 mg PO DAILY Rx Instructions: FreeTextSi tablet in the morning Orally Once a day; Note: Source Status: Taking; Provider: Татьяна Freitas ( ) latanoprost 0.005 % drops 1 drp Eye-Both DAILY Rx Instructions: FreeTextSi drop into affected eye in the evening Ophthalmic Once a day; Note: Source Status: Taking; Provider: Татьяна Freitas ( ) multivitamin [Daily Multi-Vitamin] Tablet 1 tab PO DAILY fluticasone propionate [Allergy Relief (fluticasone)] 50 mcg/actuation spray,suspension 2 spray intranasal DAILY PRN (Reason: allergy symptoms) Rx Instructions: administer into each nostril Follow Up: Hannah Gruber MD [Primary Care Provider] - (Please make follow up appointmentpost Rehab stay ) Dave Naylor DO [Courtesy/Consulting Physician] - (Please make follow up appointment post Rehab stay ) Documented By: Marcelle Gaston DO 12/23/23 1508 Signed By: <Electronically signed by Marcelle Gaston DO> 12/23/23 1510 [facility] Work Phone: 1(631) 302-346404-02-2024 Progress note Author Marcelle Gaston [facility] December 23, 2023 12:43pm Note Date/Time December 23, 2023 12:3 7pm [facility] [address] [place] [address] Hospitalist Progress Note Signed Patient: Moustapha Alejandra MR#: [id number] : 1945 Acct:[id number] Age/Sex: 78 / F Adm Date: 4 Loc: Room: [address] [place] [address] Type: ADM IN Attending Dr: Marcelle Gaston DO Copies to: ~ Date of Service: 12/23/2023 Subjective Subjective Narrative: Patient continues to have expressive aphasia. CT head repeat is negative for acute pathology. Neurology is following. Exam Physical Exam Vital Signs: Temp Pulse Resp BP Pulse Ox O2 Del Method 97.8 F 88 18 156/94 H 95 Room Air 12/23/23 07:00 12/23/23 11:00 12/23/23 11:00 12/23/23 11:00 12/23/23 11:00 12/23/23 09:00 Narrative: Generally no acute distress, lying in her hospital bed in the ICU HEENT: Head is atraumatic normocephalic, trachea midline Heart is regular rate and rhythm Lungs are clear bilaterally Abdomen soft nontender nondistended Extremities no edema, pulses intact Neurologically: Alert, has expressive aphasia, following commands appropriately,answers yes and no to questions appropriately, strength 5 out of 5 upper and lower extremity and symmetric, sensation intact Objective Lab Results 12/23/23 04:25 12/23/23 04:25 Meds Allergies and Active Meds Allergies Iodinated Contrast Media [From Contrast Media] Allergy (Severe, Verified 12/22/23 15:05) Anaphylaxis meperidine [Demerol] Allergy (Unknown, Verified 12/22/23 15:05) Unknown Reaction neomycin Allergy (Unknown, Verified 12/22/23 15:05) Unknown Reaction Active Meds: Active Medications Generic Name Dose Route Start Last Admin Trade Name Freq PRN Reason Stop Dose Admin Labetalol HCl 10 mg 12/21/23 23:55 Labetalol 100 Mg/20 Ml Vial IV-PUSH 12/20/24 23:54 Q4H PRN Hypertension Sodium Chloride 0 ml 12/21/23 22:10 12/21/23 22:44 Sodium Chloride 0.9 % 10 Ml Syringe IV-PUSH 12/20/24 22:09 10 ml PRN PRN Administration Flush Sodium Chloride 10 ml 12/22/23 18:17 Sodium Chloride 0.9 % 10 Ml Vial.Pf IV 12/21/24 18:16 PRN PRN ATIVAN DILUTION A&P - Hospitalist Assessment/Plan (1) Acute CVA (cerebrovascular accident): (2) HTN (hypertension): Plan Mainly with expressive aphasia Resume stroke protocol. PT/OT and SUPERVISOR [employer]OVING DEPARTMENT evaluation and treatments Repeat CT head 24 hours post TNK is negative for bleeding. Will start the patient on aspirin, defer further recommendation to neurologist. Statin Monitor blood pressure, antihypertensives being held for permissive hypertension Discussed plan of care with patient and her RN in the ICU Patient may benefit from rehab Documented By: Marcelle Gaston DO 12/23/23 1236 Signed By: <Electronically signed by Marcelle Gaston DO> 12/23/23 1243 [facility] Work Phone: [phone] 862-398504-01-2024 Consult note Author Trey Guerra [facility] December 22, 2023 5:26pm Note Date/Time December 22, 2023 5:26 pm [facility] [address] [place] [address] Physiatry (Rehab) Consult Note Signed Patient: Moustapha Alejandra MR#: [id number] : 1945 Acct:[id number] Age/Sex: 78 / F Adm Date: 4 Loc: Room: [address] [place] [address] Type: ADM IN Attending Dr: Marcelle aGston DO Copies to: MD Hannah Garcia MD Yazid Hussein, DO~ Etiologic Dx/Impairment Group Narrative Narrative: Left brain ischemic stroke HPI Consult Date: 12/22/23 Requesting Physician: Marcelle Gaston DO Primary Care Provider: Hannah Gruber MD Consult Narrative Reason for consult: Post stroke eval HPI: Ms. Alejandra is a 78 year old female s/p TNK for presumed ischemic left cerebral hemisphre infarct. She presented to ED with aphasia and right sided weakness, neglect. CT / CTA done. Stroke neurology recommended TNK. Today, PT/OT deferred per TNK protocol. Daughter, at bedside. They are anxious about her presentation and wondering what they can do to help. Advised just to keep her company, no need to overstimulate/overengage with tasks. Discussed post acute care options, they are open to IRF or home with home healthdepending on therapy evaluations. Also awaiting MRI tonight. Review of Systems Review of Systems All other systems reviewed & are negative unless noted below or in HPI [facility] Medical History (Updated 12/22/23 @ 17:25 by Trey Guerra MD) Anxiety HTN (hypertension) Family History (Updated 05/09/21 @ 14:15 by Provider Conversion) Father Mother Social History Smoking Status: Never smoker Substance Use Type: None Meds Medications and Allergies Allergies Iodinated Contrast Media [From Contrast Media] Allergy (Severe, Verified 12/22/23 15:05) Anaphylaxis meperidine [Demerol] Allergy (Unknown, Verified 12/22/23 15:05) Unknown Reaction neomycin Allergy (Unknown, Verified 12/22/23 15:05) Unknown Reaction Home Medications amlodipine 5 mg tablet 5 mg PO DAILY 12/21/23 [History Confirmed 12/21/23] duloxetine 60 mg capsule,delayed release 60 mg PO DAILY 12/21/23 [History Confirmed 12/21/23] fexofenadine 60 mg tablet (Graciela Allergy) 60 mg PO BID 12/21/23 [History Confirmed 12/21/23] fluticasone propionate 50 mcg/actuation nasal spray,suspension (Allergy Relief (fluticasone)) 2 spray intranasal DAILY PRN allergy symptoms 12/21/23 [History Confirmed 12/21/23] hydrochlorothiazide 25 mg tablet 25 mg PO DAILY 12/21/23 [History Confirmed 12/21/23] latanoprost 0.005 % eye drops 1 drp Eye-Both DAILY 12/21/23 [History Confirmed 12/21/23] multivitamin (Daily Multi-Vitamin tablet) 1 tab PO DAILY 12/21/23 [History Confirmed 12/21/23] Exam Physical Exam Vital Signs: Temp Pulse Resp BP Pulse Ox O2 Del Method 97.8 F 82 22 179/82 H 96 Room Air 12/22/23 15:30 12/22/23 16:24 12/22/23 16:24 12/22/23 16:24 12/22/23 16:24 12/22/23 16:24 Narrative: Pleasant NAD Non-labored breathing Answers yes/no appropriately. Attempts to write on tablet but cannot complete thought/sentence, minimal verbal output. Neuro exam otherwise non-focal except subtle facial droop. Independent for bed mobility. Results - Phys. Rehab Labs Labs: Laboratory Results - last 24 hr 12/21/23 12/21/23 12/22/23 22:11 22:14 00:40 Corrected WBC 8.5 Uncorrected WBC Count 8.5 RBC 5.06 H Hgb 14.7 Hct 44.5 MCV 88.0 MCH 29.0 MCHC 32.9 RDW 14.2 Plt Count 212 MPV 8.6 Neut % (Auto) 63.3 Lymph % (Auto) 22.6 Bowie % (Auto) 9.0 Eos % (Auto) 3.9 Baso % (Auto) 1.2 Nucleat RBC Rel Count 0.1 Neut # (Auto) 5.4 Lymph # (Auto) 1.9 Bowie # (Auto) 0.8 Eos # (Auto) 0.3 Baso # (Auto) 0.1 Monocyte Dist Width 16.85 PT 10.2 INR 0.9 APTT 29.1 PHA Creatinine Clear 43.28 Sodium 137 Potassium 3.6 Chloride 100 Carbon Dioxide 27.8 Anion Gap 12.8 BUN 28 H Creatinine 1.13 Est GFR (CKD-EPI) 49.798 Glucose 99 POC Glucose 92 POC Glucose Comment Estimat Average Glucose Hemoglobin A1c Calcium 9.6 Total Creatine Kinase 91 Troponin I High Sens 6.8 Triglycerides Cholesterol LDL Cholesterol, Calc VLDL Cholesterol HDL Cholesterol Cholesterol/HDL Ratio Urine Color Yellow Urine Appearance Clear Urine pH 5.5 Ur Specific [place] 1.042 H Urine Protein Negative Urine Glucose (UA) Normal Urine Ketones Negative Urine Occult Blood Negative Urine Nitrite Negative Urine Bilirubin Negative Urine Urobilinogen Normal Ur Leukocyte Esterase 1+ H Urine RBC None seen Urine WBC 3-4 Ur Squamous Epith Cells None seen Urine Bacteria None seen Hyaline Casts None seen 12/22/23 12/22/23 04:10 11:26 Corrected WBC 8.8 Uncorrected WBC Count 8.8 RBC 4.93 Hgb 14.5 Hct 44.0 MCV 89.4 MCH 29.4 MCHC 32.9 RDW 14.2 Plt Count 177 MPV 9.0 Neut % (Auto) 75.5 Lymph % (Auto) 14.9 Bowie % (Auto) 7.5 Eos % (Auto) 1.5 Baso % (Auto) 0.6 Nucleat RBC Rel Count 0.0 Neut # (Auto) 6.6 Lymph # (Auto) 1.3 Bowie # (Auto) 0.7 Eos # (Auto) 0.1 Baso # (Auto) 0.1 Monocyte Dist Width PT INR APTT PHA Creatinine Clear 55.54 Sodium 136 Potassium 3.4 L Chloride 102 Carbon Dioxide 25.3 Anion Gap 12.1 BUN 23 Creatinine 0.88 Est GFR (CKD-EPI) > 60.0 Glucose 108 H POC Glucose 105 POC Glucose Comment Glu2: cleaned meter Estimat Average Glucose 108 Hemoglobin A1c 5.4 Calcium 9.0 Total Creatine Kinase Troponin I High Sens Triglycerides 140 Cholesterol 204 H LDL Cholesterol, Calc 101 H VLDL Cholesterol 28 HDL Cholesterol 75 Cholesterol/HDL Ratio 2.7 Urine Color Urine Appearance Urine pH Ur Specific [place] Urine Protein Urine Glucose (UA) Urine Ketones Urine Occult Blood Urine Nitrite Urine Bilirubin Urine Urobilinogen Ur Leukocyte Esterase Urine RBC Urine WBC Ur Squamous Epith Cells Urine Bacteria Hyaline Casts Additional Results Results Comment: Reviewed CT/CTA, TTE, CBC/BMP, A1c, LDL. Assessment/Plan (1) Acute CVA (cerebrovascular accident): (2) Expressive aphasia: (3) HTN (hypertension): (4) Anxiety: (5) Oropharyngeal dysphagia: Plan 78 y/o female s/p TNK for presumed ischemic stroke. -Stroke prevention as per Neurology. -Awaiting MRI, PT/OT evals. Primary deficits is expressive aphasia but tough to assess given not out of bed yet. May have subtle hemiplegia or some executive function impairment that make it more difficult to manage mobility/self-care than would otherwise be apparent on gross exam. -Patient on post TNK precautions x 24 hours -Discussed home health v IRF with family depending on testing and therapy evaluations, open to either. -Will follow tomorrow for final recs. Documented By: Trey Guerra MD 12/22/231705 Signed By: <Electronically signed by Trey Guerra MD> 12/22/23 1726 [facility] Work Phone: 1(338) 898-400804-01-2024 Consult note Author Dave Naylor [facility] December 22, 2023 3:25pm Note Date/Time December 22, 2023 2:02 pm [facility] [address] [place] [address] Neurology Consult Note Signed Patient: Moustapha Alejandra MR#: [id number] : 1945 Acct:[id number] Age/Sex: 78 / F Adm Date: 4 Loc: Room: [address] [place] [address] Type: ADM IN Attending Dr: Marcelle Gaston DO Copies to: DO Hannah Valentine MD Yazid Hussein, DO~ HPI Consult Date: 12/22/23 Eye Surgeon: Elicia Piron Reason for consult: Concern for stroke Consult Narrative HPI: Patient is a 78-year-old female history of hypertension who presented to the emergency department with right-sided facial droop and slurred speech. Patient was in her usual state of health until about 7pm last night when her noticed she was unable to speak. She was brought to the ED by EMS. Stroke alert was called and CT head and CTA head and neck were both nonacute. Last known well was about 3 hours prior to evaluation. BP was 193/96. Neurology from [facility] was consulted and it was decided patient may benefit from TNK. Patient was given TNK and admitted for further observation and management. This morning, patient is resting comfortably in bed. She is able to follow both verbal and written commands. She can answer yes/no questions and say okay. Butcannot otherwise verbalize what she is thinking. Patient tries to write out words but is unable to do so. She continues to have significant right facial droop. She denies any headache overnight or new neurologic symptoms beyond what she originally presented with. No prior history of stroke. Review of Systems Constitutional Constitutional: Denies chills and Denies fever(s) Eyes Eyes: Denies blurry vision and Denies change in vision ENT Ears, Nose, Mouth, and Throat: Denies dizziness, Denies headache(s) and Denies hearing loss Cardiovascular Cardiovascular: Denies chest pain and Denies dyspnea Respiratory Respiratory: Denies cough and Denies wheezing Neurologic Neurologic: Reports as per HPI FORMERLY [facility], [facility] Medical History (Updated 12/22/23 @ 05:59 by Kapil José Jr, MD) Anxiety HTN (hypertension) Family History (Updated 05/09/21 @ 14:15 by Provider Conversion) Father Mother Social History Smoking Status: Never smoker Substance Use Type: None Meds Medications and Allergies Allergies Iodinated Contrast Media [From Contrast Media] Allergy (Severe, Verified 12/22/23 15:05) Anaphylaxis meperidine [Demerol] Allergy (Unknown, Verified 12/22/23 15:05) Unknown Reaction neomycin Allergy (Unknown, Verified 12/22/23 15:05) Unknown Reaction Home Medications amlodipine 5 mg tablet 5 mg PO DAILY 12/21/23 [History Confirmed 12/21/23] duloxetine 60 mg capsule,delayed release 60 mg PO DAILY 12/21/23 [History Confirmed 12/21/23] fexofenadine 60 mg tablet (Graciela Allergy) 60 mg PO BID 12/21/23 [History Confirmed 12/21/23] fluticasone propionate 50 mcg/actuation nasal spray,suspension (Allergy Relief (fluticasone)) 2 spray intranasal DAILY PRN allergy symptoms 12/21/23 [History Confirmed 12/21/23] hydrochlorothiazide 25 mg tablet 25 mg PO DAILY 12/21/23 [History Confirmed 12/21/23] latanoprost 0.005 % eye drops 1 drp Eye-Both DAILY 12/21/23 [History Confirmed 12/21/23] multivitamin (Daily Multi-Vitamin tablet) 1 tab PO DAILY 12/21/23 [History Confirmed 12/21/23] Exam Physical Exam Vital Signs: Temp Pulse Resp BP Pulse Ox O2 Del Method 98.4 F 70 19 158/76 H 96 Room Air 12/22/23 07:51 12/22/23 09:00 12/22/23 09:00 12/22/23 09:00 12/22/23 09:00 12/22/23 09:00 Const General: cooperative and comfortable Orientation: alert, oriented to person and oriented to place HEENT Head: normocephalic and atraumatic Ears: hearing grossly normal bilaterally Eyes Pupils: PERRL EOM: EOM intact bilaterally Resp Effort & Inspection: normal respiratory effort and able to speak in complete sentences Cardio Rate: regular rate Rhythm: regular rhythm Neuro Other: Neuro exam: Attention span/concentration normal Patient has significant expressive aphasia. Patient is only able to say yes , no , or okay . Comprehension appears to be intact. Patient also has significant agraphia. Can follow written and verbal commands Cranial nerve II: Vision is intact. PERRLA. Cranial nerves III, IV and : EOMI. No nystagmus appreciated. Cranial nerves V and VII: Right facial droop is appreciated. Cranial nerves IX and X: Speech is clear. Palate elevates symmetrically. Cranial nerve XI: Head turn side to side, full range of motion. Shoulder shrug is equal bilaterally. Cranial nerve XII: Tongue is midline, full range of motion. Motor exam: Strength is 5 out of 5 throughout. No pronator drift was appreciated. Muscle tone and bulk are normal. Sensory exam: Temperature, pinprick, vibration are intact in all 4 extremities and symmetric. Cerebellar exam: [id number] intact and normal in bilateral upper extremities [id number] intact and normal in lower extremities Reflex exam: 10/26 throughout Results - Neuro Laboratory Findings 12/22/23 04:10 12/22/23 04:10 Diagnostic Findings Imaging/Impressions: ITS Impressions Chest X-Ray 12/21/23 22:09 IMPRESSION: No acute process. Impression dictated by: Richard Roberson M.D.12/22/2023 9:16 AM Dictation Location: [facility] 12/21/23 22:09 IMPRESSION: No acute findings. A preliminary 12/21/2023 at 2238 hours Impression dictated by: Richard Roberson M.D.12/22/2023 9:15 AM Dictation Location: [facility] Head CTA 12/21/23 22:09 IMPRESSION: No occlusion, critical stenosis or dissection of the extracranial orintracranial circulation. Impression dictated by: Richard Roberson M.D.12/22/2023 9:21 AM Dictation Location: [facility] Assessment/Plan (1) Expressive aphasia: Plan Patient is a 78-year-old female with past medical history of hypertension and anxiety who presented to the emergency department with concern for right facial droop and difficulty speaking. On evaluation, patient was also found to have agraphia. CT head and CTA were nonacute. Given the nature of her deficits, decision was made to administer TNK. Patient was admitted to the ICU for further observation. Suffered from a left sided MCA stroke. No LVO was appreciated on CTA of the head and neck. The cause is suspected to be thromboembolic or cardioembolic in nature. MRI brain pending Echocardiogram showed EF 60-65%. The left atrium appeared mildly dilated. Negative bubble study. No evidence of thrombus vegetation or mass. A1c 5.4 LDL 101. Will start the patient on atorvastatin 40 mg Initiate aspirin 24 hours after TNK PT/OT/ST Attestation Statement I endorse the portions of this note created by Bessie Washington. I also saw and examined the patient. Documented By: Dave Naylor DO 12/22/23923 Signed By: <Electronically signed by Dave Naylor DO> 12/22/23 [facility] Work Phone: 1([phone]) 425-842404-01-2024 Progress note Author Marcelle Gaston [facility] December 22, 2023 12:04pm Note Date/Time December 22, 2023 12:0 4pm [facility] [address] [place] [address] Hospitalist Progress Note Signed Patient: Moustapha Alejandra MR#: [id number] : 1945 Acct:[id number] Age/Sex: 78 / F Adm Date: 4 Loc: Room: [address] [place] [address] Type: ADM IN Attending Dr: Marcelle Gaston DO Copies to: ~ Date of Service: 12/22/2023 Subjective Subjective Narrative: Patient continues to have expressive aphasia. Monitor in ICU until 24-hour postTNK. Exam Physical Exam Vital Signs: Temp Pulse Resp BP Pulse Ox O2 Del Method 98.4 F 77 20 177/83 H 95 Room Air 12/22/23 07:51 12/22/23 11:30 12/22/23 11:30 12/22/23 11:30 12/22/23 11:30 12/22/23 11:30 Narrative: Generally no acute distress, lying in her hospital bed in the ICU HEENT: Head is atraumatic normocephalic, trachea midline Heart is regular rate and rhythm Lungs are clear bilaterally Abdomen soft nontender nondistended Extremities no edema, pulses intact Neurologically: Alert, has expressive aphasia, following commands appropriately,answers yes and no to questions appropriately, strength 5 out of 5 upper and lower extremity and symmetric, sensation intact Objective Lab Results 12/22/23 04:10 12/22/23 04:10 Meds Allergies and Active Meds Allergies meperidine [Demerol] Allergy (Unknown, Verified 05/09/21 14:15) neomycin Allergy (Unknown, Verified 05/09/21 14:15) Active Meds: Active Medications Generic Name Dose Route Start Last Admin Trade Name Freq PRN Reason Stop Dose Admin Labetalol HCl 10 mg 12/21/23 23:55 Labetalol 100 Mg/20 Ml Vial IV-PUSH 12/20/24 23:54 Q4H PRN Hypertension Sodium Chloride 0 ml 12/21/23 22:10 12/21/23 22:44 Sodium Chloride 0.9 % 10 Ml Syringe IV-PUSH 03/31/25 22:09 10 ml PRN PRN Administration Flush A&P - Hospitalist Assessment/Plan (1) Acute CVA (cerebrovascular accident): (2) HTN (hypertension): Plan Mainly with expressive aphasia Resume stroke protocol. PT/OT and [employer] evaluation and treatments Antiplatelet when okayed by neurologist pending repeat CAT scan 24 hours post TNK Statin Monitor blood pressure, antihypertensives being held for permissive hypertension Discussed plan of care with patient and her RN in the ICU Patient may benefit from rehab Documented By: Marcelle Gaston DO 12/22/23 1200 Signed By: <Electronically signed by Marcelle Gaston DO> 12/22/23 1204 [facility] Work Phone: 1(342) 543-673104-01-2024 Progress note Author Michael Michele [facility] December 22, 2023 10:35am Note Date/Time December 22, 2023 10:3 5am [facility] [address] [place] [id number] Progress Note Signed Patient: Moustapha Alejandra MR#: [id number] : 1945 Acct:[id number] Age/Sex: 78 / F Adm Date: 4 Loc: Room: [address] [place] [address] Type: ADM IN Attending Dr: Marcelle Gaston DO Copies to: ~ Date of Service: 12/22/2023 Progress Narrative Note PROGRESS NOTE Progress Note: Chart was reviewed and patient was discussed on critical care rounds. Patient admitted after administration of IV tPA with stroke symptoms. Patient was also noted to be hypertensive. She is stable in ICU with hypertension with PRN labetalol ordered. I have nothing to add at present. I will be aware and available as needed but will not formally round on the patient. Documented By: Michael Michele MD 4 1032 Signed By: <Electronically signed by MD Michael Michele> 12/22/23 1035 [facility] Work Phone: 1(659) 391-702804-01-2024 History and physical note Author Azar Plaza [facility] December 21, 2023 11:55pm Note Date/Time December 21, 2023 11: 55pm [facility] [address] [place] [address] Hospitalist H&P Signed Patient: Moustapha Alejandra MR#: [id number] : 1945 Acct:[id number] Age/Sex: 78 / F Adm Date: 4 Loc: Room: 3M4991-4 Type: ADM IN Attending Dr: Azar Plaza MD Copies to: MD Azar Noyola MD~ HPI DATE OF EXAMINATION: 12/21/23 CHIEF COMPLAINT: Right facial droop and difficulty speaking. HISTORY OF PRESENT ILLNESS: Patient is a 78-year-old female with past medical history of hypertension and anxiety disorder. She was brought to the emergency room by squad for right facial droop and difficulty speaking. Patient has been in normal state of health until around 7 PM when her noted that she is not able to speak. Her daughter called around 830 she noticed that she was having trouble speaking and was brought to the emergency room. There is no history of recent infection,fever, chills, headache, head injury or prior history of stroke. In the emergency room stroke alert was called. ER physician has discussed case with neurology and patient received Tenecteplase. CTA head and neck was negative forcritical stenosis. Examination noted to have right facial droop with aphasia. She is able to say yes and no. Following commands with right-sided weakness with right sided neglect. ER physician has also discussed case with interventional neurologist in [place] and no acute intervention recommended. Arrival her blood pressure was elevated at 193/96 which improved after receivinga dose of labetalol. Patient currently denies having headache. Review of Systems Review of Systems All other systems reviewed & are negative unless noted below or in HPI FOR[facility]LY [facility], [facility] Medical History (Updated 12/21/23 @ 23:53 by Azar Plaza MD) Anxiety HTN (hypertension) Family History (Updated 05/09/21 @ 14:15 by Provider Conversion) Father Mother Social History Smoking Status: Never smoker Substance Use Type: None Meds Medications and Allergies Allergies meperidine [Demerol] Allergy (Unknown, Verified 05/09/21 14:15) neomycin Allergy (Unknown, Verified 05/09/21 14:15) Home Medications amlodipine 5 mg tablet 5 mg PO DAILY 12/21/23 [History Confirmed 12/21/23] duloxetine 60 mg capsule,delayed release 60 mg PO DAILY 12/21/23 [History Confirmed 12/21/23] fexofenadine 60 mg tablet (Graciela Allergy) 60 mg PO BID 12/21/23 [History Confirmed 12/21/23] fluticasone propionate 50 mcg/actuation nasal spray,suspension (Allergy Relief (fluticasone)) 2 spray intranasal DAILY PRN allergy symptoms 12/21/23 [History Confirmed 12/21/23] hydrochlorothiazide 25 mg tablet 25 mg PO DAILY 12/21/23 [History Confirmed 12/21/23] latanoprost 0.005 % eye drops 1 drp Eye-Both DAILY 12/21/23 [History Confirmed 12/21/23] multivitamin (Daily Multi-Vitamin tablet) 1 tab PO DAILY 12/21/23 [History Confirmed 12/21/23] Exam Physical Exam Vital Signs: Temp Pulse Resp BP Pulse Ox O2 Del Method 98.0 F 71 20 162/85 H 95 Room Air 12/21/23 22:11 12/21/23 23:20 12/21/23 23:20 12/21/23 23:20 12/21/23 23:20 12/21/23 23:20 Const General: cooperative Orientation: awake HEENT Head: normal to inspection, no palpable skull fracture, normocephalic and atraumatic Eyes Pupils: PERRL EOM: EOM intact bilaterally and No nystagmus Neck Neck: normal visual inspection, full ROM and no meningeal signs Resp Effort & Inspection: normal respiratory effort and able to speak in complete sentences Auscultation: no rales, no rhonchi and no wheezes Cardio Rate: regular rate Rhythm: regular rhythm Heart Sounds: S1 normal and S2 normal GI Palpation: soft, not firm, no guarding and nontender Neuro General: patient awake Other: Motor strength around 4 out of 5 in right upper and lower extremity. 5 out of 5in left upper and lower extremity. Moderate right facial droop with expressive aphasia. Right sided neglect. Extrem General: no clubbing, cyanosis or edema and no calf tenderness Results - Hospitalist H&P Lab Results Labs: Laboratory Last Values Corrected WBC 8.5 X10E3/uL (3.8-11.6) 12/21/23 22:14 Uncorrected WBC Count 8.5 x10E3/uL (3.8-11.6) 12/21/23 22:14 RBC 5.06 X10E6/uL (3.60-5.00) H 12/21/23 22:14 Hgb 14.7 g/dL (11.8-15.4) 12/21/23 22:14 Hct 44.5 % (34.0-46.4) 12/21/23 22:14 MCV 88.0 fl (80-100) 12/21/23 22:14 MCH 29.0 pg (24.7-34.3) 12/21/23 22:14 MCHC 32.9 g/dL (32.0-35.0) 12/21/23 22:14 RDW 14.2 % (11.9-15.3) 12/21/23 22:14 Plt Count 212 x10E3/uL (150-450) 12/21/23 22:14 MPV 8.6 fl (6.3-10.7) 12/21/23 22:14 Neut % (Auto) 63.3 % (.) 12/21/23 22:14 Lymph % (Auto) 22.6 % (.) 12/21/23 22:14 Bowie % (Auto) 9.0 % (.) 12/21/23 22:14 Eos % (Auto) 3.9 % (.) 12/21/23 22:14 Baso % (Auto) 1.2 % (.) 12/21/23 22:14 Nucleat RBC Rel Count 0.1 /100 WBC (0-0.5) 12/21/23 22:14 Neut # (Auto) 5.4 x10E3/uL (1.8-7.7) 12/21/23 22:14 Lymph # (Auto) 1.9 x10E3/uL (1.00-4.8) 12/21/23 22:14 Bowie # (Auto) 0.8 x10E3/uL (0.0-0.8) 12/21/23 22:14 Eos # (Auto) 0.3 x10E3/uL (0.0-0.45) 12/21/23 22:14 Baso # (Auto) 0.1 x10E3/uL (0.0-0.2) 12/21/23 22:14 Monocyte Dist Width 16.85 % (0.00-20.00) 12/21/23 22:14 PT 10.2 Seconds (9.0-12.9) 12/21/23 22:14 INR 0.9 12/21/23 22:14 APTT 29.1 Seconds (25.1-36.5) 12/21/23 22:14 PHA Creatinine Clear 43.28 12/21/23 22:14 Sodium 137 mmol/L (136-145) 12/21/23 22:14 Potassium 3.6 mmol/L (3.5-5.1) 12/21/23 22:14 Chloride 100 mmol/L (98-107) 12/21/23 22:14 Carbon Dioxide 27.8 mmol/L (21.0-31.0) 12/21/23 22:14 Anion Gap 12.8 mEq/L (6.0-15.0) 12/21/23 22:14 BUN 28 mg/dL (7-25) H 12/21/23 22:14 Creatinine 1.13 mg/dL (0.60-1.20) 12/21/23 22:14 Est GFR (CKD-EPI) 49.798 mL/Min 12/21/23 22:14 Glucose 99 mg/dL (70-100) 12/21/23 22:14 POC Glucose 92 mg/dl 12/21/23 22:11 Calcium 9.6 mg/dL (8.6-10.3) 12/21/23 22:14 Total Creatine Kinase 91 U/L (30-223) 12/21/23 22:14 Troponin I High Sens 6.8 pg/mL (0.0-15.0) 12/21/23 22:14 Assessment & Plan Assessment/Plan (1) Acute CVA (cerebrovascular accident): (2) HTN (hypertension): Plan Patient brought to the emergency room by squad for sudden onset of right facial weakness and difficulty speaking. In the emergency room she received tenecteplase and will be admitted to ICU for further management. Consult neurology and obtain stroke workup including echocardiogram, A1c and lipid profile. Hold antiplatelets 24 hours post TNK. MRI brain. SCDs for DVT prophylaxis. Hold antihypertensive medication for permissive cerebral perfusion. Consult PT/OT. IP vs OBS Justification Based on differential dx, clinical care plan, and risk of adverse events, if untreated, in my clinical judgement this patient requires an acute care setting as: INPATIENT because of an expectation of an over 2 midnight stay. Estimated length of stay (# of days): 3 Documented By: Azar Plaza MD 12/21/23 2346 Signed By: <Electronically signed by Azar Plzaa MD> 12/21/23 1722 [facility] Work Phone: 1(730) 923-641504-01-2024 History and physical note Author Azar Plaza [facility] December 21, 2023 11:55pm Note Date/Time December 21, 2023 11: 55pm [facility] [address] [place] [address] Hospitalist H&P Signed Patient: Moustapha Alejandra MR#: [id number] : 1945 Acct:[id number] Age/Sex: 78 / F Adm Date: 4 Loc: Room: [address] [place] [address] Type: ADM IN Attending Dr: Azar Plaza MD Copies to: MD Azar Noyola MD~ HPI DATE OF EXAMINATION: 12/21/23 CHIEF COMPLAINT: Right facial droop and difficulty speaking. HISTORY OF PRESENT ILLNESS: Patient is a 78-year-old female with past medical history of hypertension and anxiety disorder. She was brought to the emergency room by squad for right facial droop and difficulty speaking. Patient has been in normal state of health until around 7 PM when her noted that she is not able to speak. Her daughter called around 830 she noticed that she was having trouble speaking and was brought to the emergency room. There is no history of recent infection,fever, chills, headache, head injury or prior history of stroke. In the emergency room stroke alert was called. ER physician has discussed case with neurology and patient received Tenecteplase. CTA head and neck was negative forcritical stenosis. Examination noted to have right facial droop with aphasia. She is able to say yes and no. Following commands with right-sided weakness with right sided neglect. ER physician has also discussed case with interventional neurologist in [place] and no acute intervention recommended. Arrival her blood pressure was elevated at 193/96 which improved after receivinga dose of labetalol. Patient currently denies having headache. Review of Systems Review of Systems All other systems reviewed & are negative unless noted below or in HPI [facility] Medical History (Updated 12/21/23 @ 23:53 by Azar Plaza MD) Anxiety HTN (hypertension) Family History (Updated 05/09/21 @ 14:15 by Provider Conversion) Father Mother Social History Smoking Status: Never smoker Substance Use Type: None Meds Medications and Allergies Allergies meperidine [Demerol] Allergy (Unknown, Verified 05/09/21 14:15) neomycin Allergy (Unknown, Verified 05/09/21 14:15) Home Medications amlodipine 5 mg tablet 5 mg PO DAILY 12/21/23 [History Confirmed 12/21/23] duloxetine 60 mg capsule,delayed release 60 mg PO DAILY 12/21/23 [History Confirmed 12/21/23] fexofenadine 60 mg tablet (Graciela Allergy) 60 mg PO BID 12/21/23 [History Confirmed 12/21/23] fluticasone propionate 50 mcg/actuation nasal spray,suspension (Allergy Relief (fluticasone)) 2 spray intranasal DAILY PRN allergy symptoms 12/21/23 [History Confirmed 12/21/23] hydrochlorothiazide 25 mg tablet 25 mg PO DAILY 12/21/23 [History Confirmed 12/21/23] latanoprost 0.005 % eye drops 1 drp Eye-Both DAILY 12/21/23 [History Confirmed 12/21/23] multivitamin (Daily Multi-Vitamin tablet) 1 tab PO DAILY 12/21/23 [History Confirmed 12/21/23] Exam Physical Exam Vital Signs: Temp Pulse Resp BP Pulse Ox O2 Del Method 98.0 F 71 20 162/85 H 95 Room Air 12/21/23 22:11 12/21/23 23:20 12/21/23 23:20 12/21/23 23:20 12/21/23 23:20 12/21/23 23:20 Const General: cooperative Orientation: awake HEENT Head: normal to inspection, no palpable skull fracture, normocephalic and atraumatic Eyes Pupils: PERRL EOM: EOM intact bilaterally and No nystagmus Neck Neck: normal visual inspection, full ROM and no meningeal signs Resp Effort & Inspection: normal respiratory effort and able to speak in complete sentences Auscultation: no rales, no rhonchi and no wheezes Cardio Rate: regular rate Rhythm: regular rhythm Heart Sounds: S1 normal and S2 normal GI Palpation: soft, not firm, no guarding and nontender Neuro General: patient awake Other: Motor strength around 4 out of 5 in right upper and lower extremity. 5 out of 5in left upper and lower extremity. Moderate right facial droop with expressive aphasia. Right sided neglect. Extrem General: no clubbing, cyanosis or edema and no calf tenderness Results - Hospitalist H&P Lab Results Labs: Laboratory Last Values Corrected WBC 8.5 X10E3/uL (3.8-11.6) 12/21/23 22:14 Uncorrected WBC Count 8.5 x10E3/uL (3.8-11.6) 12/21/23 22:14 RBC 5.06 X10E6/uL (3.60-5.00) H 12/21/23 22:14 Hgb 14.7 g/dL (11.8-15.4) 12/21/23 22:14 Hct 44.5 % (34.0-46.4) 12/21/23 22:14 MCV 88.0 fl (80-100) 12/21/23 22:14 MCH 29.0 pg (24.7-34.3) 12/21/23 22:14 MCHC 32.9 g/dL (32.0-35.0) 12/21/23 22:14 RDW 14.2 % (11.9-15.3) 12/21/23 22:14 Plt Count 212 x10E3/uL (150-450) 12/21/23 22:14 MPV 8.6 fl (6.3-10.7) 12/21/23 22:14 Neut % (Auto) 63.3 % (.) 12/21/23 22:14 Lymph % (Auto) 22.6 % (.) 12/21/23 22:14 Bowie % (Auto) 9.0 % (.) 12/21/23 22:14 Eos % (Auto) 3.9 % (.) 12/21/23 22:14 Baso % (Auto) 1.2 % (.) 12/21/23 22:14 Nucleat RBC Rel Count 0.1 /100 WBC (0-0.5) 12/21/23 22:14 Neut # (Auto) 5.4 x10E3/uL (1.8-7.7) 12/21/23 22:14 Lymph # (Auto) 1.9 x10E3/uL (1.00-4.8) 12/21/23 22:14 Bowie # (Auto) 0.8 x10E3/uL (0.0-0.8) 12/21/23 22:14 Eos # (Auto) 0.3 x10E3/uL (0.0-0.45) 12/21/23 22:14 Baso # (Auto) 0.1 x10E3/uL (0.0-0.2) 12/21/23 22:14 Monocyte Dist Width 16.85 % (0.00-20.00) 12/21/23 22:14 PT 10.2 Seconds (9.0-12.9) 12/21/23 22:14 INR 0.9 12/21/23 22:14 APTT 29.1 Seconds (25.1-36.5) 12/21/23 22:14 PHA Creatinine Clear 43.28 12/21/23 22:14 Sodium 137 mmol/L (136-145) 12/21/23 22:14 Potassium 3.6 mmol/L (3.5-5.1) 12/21/23 22:14 Chloride 100 mmol/L (98-107) 12/21/23 22:14 Carbon Dioxide 27.8 mmol/L (21.0-31.0) 12/21/23 22:14 Anion Gap 12.8 mEq/L (6.0-15.0) 12/21/23 22:14 BUN 28 mg/dL (7-25) H 12/21/23 22:14 Creatinine 1.13 mg/dL (0.60-1.20) 12/21/23 22:14 Est GFR (CKD-EPI) 49.798 mL/Min 12/21/23 22:14 Glucose 99 mg/dL (70-100) 12/21/23 22:14 POC Glucose 92 mg/dl 12/21/23 22:11 Calcium 9.6 mg/dL (8.6-10.3) 12/21/23 22:14 Total Creatine Kinase 91 U/L (30-223) 12/21/23 22:14 Troponin I High Sens 6.8 pg/mL (0.0-15.0) 12/21/23 22:14 Assessment & Plan Assessment/Plan (1) Acute CVA (cerebrovascular accident): (2) HTN (hypertension): Plan Patient brought to the emergency room by squad for sudden onset of right facial weakness and difficulty speaking. In the emergency room she received tenecteplase and will be admitted to ICU for further management. Consult neurology and obtain stroke workup including echocardiogram, A1c and lipid profile. Hold antiplatelets 24 hours post TNK. MRI brain. SCDs for DVT prophylaxis. Hold antihypertensive medication for permissive cerebral perfusion. Consult PT/OT. IP vs OBS Justification Based on differential dx, clinical care plan, and risk of adverse events, if untreated, in my clinical judgement this patient requires an acute care setting as: INPATIENT because of an expectation of an over 2 midnight stay. Estimated length of stay (# of days): 3 Documented By: Azar Plaza MD 12/21/23 2346 Signed By: <Electronically signed by Azar Plaza MD> 12/21/23 2355 [facility] Work Phone: Consult note Author Trey Guerra [facility] January 30, 2024 1:28pm Note Date/Time January 30, 2024 11:10 am [facility] [address] [place] [address] Physiatry (Rehab) Consult Note Signed Patient: Moustapha Alejandra MR#: [id number] : 1945 Acct:[id number] Age/Sex: 78 / F Adm Date: 4 Loc: Room: [address] [place] [address] Type: ADM IN Attending Dr: Azar Plaza MD Copies to: Howard Valentin DO, RES MD Hannah Garcia MD Mazhar Rahman, MD~ Etiologic Dx/Impairment Group Narrative Narrative: Hip fracture HPI Consult Date: 01/30/24 Requesting Physician: Azar Plaza MD Primary Care Provider: Hannah Gruber MD Consult Narrative Reason for consult: Rehab eval/postacute care needs HPI: Ms. Alejandra is a 78 year old female with past medical history of HTN, HLD, CVA (12/21/23) with continued expressive aphasia who presented to the ER after fall with right hip pain. Patient was admitted for right-sided subcapital femoral fracture. 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 Patient subsequently had a right hip hemiarthroplasty on 01/29/2024. Overall patient tolerated procedure well with some anemia postsurgery however overall uncomplicated. Patient is only requiring p.o. opiates at this point for pain management. At her baseline patient lives in a ranch style home with her that has approximately 2 steps into it. 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 She states that she was ambulating independently without assistive devices for hospital stay. She did report falling about 6 months ago while she was in [place] though. She denies being on any supplemental oxygen at home. She was working with outpatient [employer] prior to hospital stay secondary to her expressive aphasia from recent CVA. Patient has been evaluated by PT/OT and they are recommending inpatient rehab today. Patient was min-mod assist during evaluations and able to ambulate with a rolling walker about 5 feet. This is a decrease from her baseline as stated above. Her personal goal of therapy is to get back to her baseline and being able to be independent especially with ambulation. [employer] evaluated patient and recommended no therapy at this time. Patient was seen and examined today laying in bed. She states that overall she is feeling all right and recovering well from the surgery. She states that she is breathing all right and is tolerating weaning off the oxygen currently. She denies any other acute complaints or concerns at this time. Review of Systems Review of Systems All other systems reviewed & are negative unless noted below or in HPI Review of systems: A 10-point review of systems was performed and was negative unless otherwise noted in HPI. FORMERLY [facility], [facility]1983 Medical History Right humeral fracture Acute CVA (cerebrovascular accident) Anxiety HTN (hypertension) Family History Father Mother Social History Smoking Status: Never smoker Substance Use Type: None Meds Medications and Allergies Allergies Iodinated Contrast Media [From Contrast Media] Allergy (Severe, Verified 01/28/24 18:13) Anaphylaxis meperidine [Demerol] Allergy (Unknown, Verified 01/28/24 18:13) Unknown Reaction neomycin Allergy (Unknown, Verified 01/28/24 18:13) Unknown Reaction Home Medications acetaminophen 500 mg tablet 500 mg PO Q4H PRN Pain #60 tabs 01/01/24 [Rx Confirmed 01/28/24] amlodipine 5 mg tablet 5 mg PO DAILY 30 days #30 tabs 01/01/24 [Rx Confirmed 01/28/24] aspirin 81 mg tablet,delayed release 81 mg PO DAILY #30 tabs 01/01/24 [Rx Confirmed 01/28/24] atorvastatin 40 mg tablet 40 mg PO QPM 30 days #30 tabs 01/01/24 [Rx Confirmed 01/28/24] duloxetine 60 mg capsule,delayed release 60 mg PO DAILY 30 days #30 caps 01/01/24 [Rx Confirmed 01/28/24] fluticasone propionate 50 mcg/actuation nasal spray,suspension 2 spray intranasal DAILY PRN allergy symptoms 30 days #1 ea 01/01/24 [Rx Confirmed 01/28/24] hydrochlorothiazide 25 mg tablet 25 mg PO DAILY 30 days #30 tabs 01/01/24 [Rx Confirmed 01/28/24] latanoprost 0.005 % eye drops 1 drp Eye-Both DAILY 30 days #1 ea 01/01/24 [Rx Confirmed 01/28/24] loratadine 10 mg tablet 10 mg PO DAILY #30 tabs 01/01/24 [Rx Confirmed 01/28/24] multivitamin with folic acid 400 mcg tablet (Thera) 1 tab PO DAILY #30 tabs 01/01/24 [Rx Confirmed 01/28/24] nystatin 100,000 unit/gram topical powder (Nystop) 1 applic topical BID #15 grams 01/01/24 [Rx Confirmed 01/28/24] ascorbic acid (vitamin C) 500 mg tablet (Vitamin C) 500 mg PO DAILY #0 tabs 01/30/24 [Rx] calcium carbonate 500 mg-vitamin D3 5 mcg (200 unit) tablet (Oyster Shell Calcium-Vitamin D3) 1 tab PO TID.WITH.MEALS #0 tabs 01/30/24 [Rx] enoxaparin 30 mg/0.3 mL subcutaneous syringe (Lovenox) 30 mg (0.3 mL) subcut BID@1000,2200 #0 mL 01/30/24 [Rx] ferrous sulfate 324 mg (65 mg iron) tablet,delayed release 324 mg PO BID #0 tabs 01/30/24 [Rx] hydrocodone 5 mg-acetaminophen 325 mg tablet 1 tab PO Q4H PRN Pain #0 tabs 01/30/24 [Rx] Exam Physical Exam Vital Signs: Temp Pulse Resp BP Pulse Ox O2 Del Method O2 Flow Rate 98.2 F 99 18 150/77 H 94 L Nasal Cannula 3 01/30/24 08:00 01/30/24 10:47 01/30/24 10:47 01/30/24 10:47 01/30/24 10:47 01/30/24 10:47 01/30/24 10:47 Narrative: General -awake, alert, oriented ?3, not in acute distress, lying in upright position Eyes - clear sclera and conjunctiva, extraocular eye movements grossly intact, PERRLA Cardiovascular - regular rate and rhythm with no murmurs, rubs or gallops Pulmonary - CTA b/l without RRW Gastrointestinal - abdomen is soft, nondistended, nontender, normoactive bowel sounds, there is no guarding, rebound or rigidity Upper Extremities - no edema, clubbing or cyanosis Lower Extremities -1+ pitting edema bilateral lower extremities worse on right lower extremity, no clubbing or cyanosis. There is a intact dressing on right lateral hip without any surrounding erythema, redness or warmth. Neurological -no focal neurological deficit noted, CN II-XII grossly intact, patient does struggle to find words throughout exam which is likely consistent with her expressive dysphagia from her recent CVA Musculoskeletal - 1/5 muscle strength in right lower extremity compared to 5/5 muscle strength and all other extremities Results - Phys. Rehab Labs Labs: Laboratory Results - last 24 hr 01/30/24 04:30 Corrected WBC 11.4 Uncorrected WBC Count 11.4 RBC 3.32 L Hgb 9.9 L Hct 29.3 L D MCV 88.2 MCH 29.9 MCHC 34.0 RDW 13.7 Plt Count 144 L MPV 9.2 Neut % (Auto) 91.5 Lymph % (Auto) 4.0 Bowie % (Auto) 4.3 Eos % (Auto) 0.0 Baso % (Auto) 0.2 Nucleat RBC Rel Count 0.0 Neut # (Auto) 10.5 H Lymph # (Auto) 0.5 L Bowie # (Auto) 0.5 Eos # (Auto) 0.0 Baso # (Auto) 0.0 PHA Creatinine Clear 56.18 Sodium 134 L Potassium 3.7 Chloride 104 Carbon Dioxide 27.9 Anion Gap 5.8 L BUN 17 Creatinine 0.87 Est GFR (CKD-EPI) > 60.0 Glucose 129 H Calcium 8.0 L Total Bilirubin 0.4 AST 19 ALT 13 Alkaline Phosphatase 60 Total Protein 5.0 L Albumin 2.8 L Globulin 2.2 Albumin/Globulin Ratio 1.3 Additional Results Results Comment: I reviewed clinical lab tests, radiology reports and obtained and summated medical records and have ordered follow up lab tests and imaging studies as needed for rehabilitation care. Assessment/Plan (1) Subcapital fracture of right hip: (2) Expressive aphasia: (3) HTN (hypertension): Plan Ms. Alejandra is a 78 year old female with past medical history of HTN, HLD, CVA (12/21/23) with continued expressive aphasia who presented to the ER after fall with right hip pain. Patient was admitted for right-sided subcapital femoral fracture. Pt has new and continued impaired mobility and impaired independence with ADLs and IADLs requiring PT/OT/[employer] 5-7 days/week 3 hours/day to maximize safety and independence with functional ability and self-care. Primary Rehabilitation Diagnosis: Right-sided subcapital femoral fracture status post right hip hemiarthroplasty on 01/29/2024 Patient is appropriate for acute inpatient rehab facility once medically stable per primary service and consultants. The patient has functional deficits requiring both active and ongoing therapeutic intervention of 3 disciplines of therapy, physical therapy/Occupational Therapy +/- speech therapy. Patient has worked appropriately with multiple disciplines of therapy on acute care, and demonstrates ability to tolerate and participate and make reasonable gains with at least a 15 hour/week inpatient rehabilitation program. Due to medical complexity as noted, rehabilitation physician supervision is both reasonable and necessary, including [id number] visits at least 3 days/week with the need to treat, manage and modify course of treatment, including participating in at least once weekly interdisciplinary team conferences. The patient requires multidisciplinary rehabilitation treatment including rehabilitation physician at least 3 times per week, 24-hour rehabilitation nursing, physical occupational therapy, plus/minus speech-language pathology, rehabilitation case management, nutrition services, plus minus rehabilitation psychology. This case cannot be best/most appropriately managed at a lower level of care. Estimated length of rehabilitation stay: 14 Days Prior Level of Function: IND Expected functional status at discharge from rehab: Self-care (ADLs) : Independent Bed Mobility/Transfers: Independent Ambulation: Independent There is a reasonable plan in place for discharge to the community. Overall prognosis is good to make functional gains that would make substantial difference in the eventual discharge setting. Patient was personally seen by me on the day of encounter, reviewed the history and performed bourgeois elements of exam and formulated the plan of care and confirmed the resident physician note, as above Still has needs with speech therapy including word finding difficulty/expressive aphasia, from recent stroke. This can be evaluated on rehab admission as well. Can admit today 01/29, if cleared by orthopedics. Documented By: Trey Guerra MD 01/30/24 1059 Signed By: <Electronically signed by Trey Guerra MD> 01/30/24 1328 <Electronically signed by DO ORLIN Valentin> 01/30/24 [facility] Work Phone: Discharge summary Author Azar Plaza [facility] January 30, 2024 1:13pm Note Date/Time January 30, 2024 1:07p [facility] [address] [place] [address] Discharge Summary Signed Patient: Moustapha Alejandra MR#: [id number] : 1945 Acct:[id number] Age/Sex: 78 / F Adm Date: 4 Loc: Room: 5W8427-[address]: Azar Plaza MD Copies to: MD Azar Noyola MD~ Providers Date of Discharge: 01/30/24 Discharging Provider: Azar Plaza Primary Care Provider: Hannah Gruber Consults: 01/28/24 23:35 Consult to Orthopedic Surgery Routine Comment: Consulting Provider: Rosemary Serra Reason For Exam: right hip fracture Has Provider Been Notified: Yes Date of Notification: 01/29/24 Time of Notification: 06:44 01/29/24 08:45 Consult to Speech Therapy Routine Comment: Reason for ST Consult: Speech/Language Eval & Tx Order Comment: recent cva with aphasia 01/29/24 14:17 Consult to Occupational Therapy Routine Comment: Physician Instructions: Consult to OT for:: Evaluation and Treat Other reason for OT consult: WBAT with anterior hip dislocation precuations Consult to Physical Therapy Routine Comment: Physician Instructions: Consult to PT for:: Evaluation and Treat Extended Comment: WBAT with anterior hip dislocation precuations 01/29/24 14:20 Consult to Case Management Routine Comment: CM Reason for Consult: Other Other and/or Abuse/Neglect Consult Reasons: WBAT with anterior hip dislocation precuations eval for rehab history stroke 01/30/24 08:27 Consult to Physiatry Routine Comment: Consulting Provider: [facility] - Phys Med - Rehab Reason For Exam: Rehab eval/post acute care needs Has Provider Been Notified: Yes Date of Notification: 01/30/24 Time of Notification: 09:33 Discharge Diagnosis (1) Subcapital fracture of right hip: (2) Expressive aphasia: (3) HTN (hypertension): Final Diagnosis Final Discharge Diagnosis: As above Summary Hospital Course Hospital course: Patient is a pleasant 78-year-old female who was recently discharged from the hospital after acute stroke leading to expressive aphasia. Patient brought to the emergency room after mechanical fall leading to right hip pain. Found to have right hip fracture and was admitted for further management. Orthopedic wasconsulted underwent ORIF of the right hip without any complication. She did develop postop blood loss anemia but has been asymptomatic. She will be discharged to inpatient rehab to continue with therapy. Continue iron supplement. Initially there was concern for acute cystitis but urine culture showing contaminant patient has been asymptomatic. She did receive IV ceftriaxone during hospital stay. Follow-up H&H. Condition Condition at Discharge: Stable Status at Discharge Overall status at discharge: patient is not back to baseline Time Spent with Patient Time spent providing/coordinating discharge services (# min): 35 Surgeries and Procedures Operation Date: 01/29/24 15:50 Actual Procedures p OR Right Cemented Latrell-Arthroplasty(Right) - Rosemary Serra MD Discharge Plan Discharge Plan Patient Disposition: [facility] [facility] [place]: Ambulate as Tolerated and Other Comment: Per Orthopedic Surgery Diet: Low-Sodium and Low-Cholesterol Additional Instructions: Inpatient Rehab to manage care: - Full code - PT/OT eval and treat - Routine vital signs - Oxygen at 2L per nasal cannula, titrate as needed to keep pox > 90% - Right forearm laceration- Clean with NS. Top with 4x4 gauze. Secure with Conform and paper tape. May leave open to air if no drainage. Change daily and as needed. - Mepilex border foam to Coccyx for protection. Change every 3 days and as needed. - Maintain wound vac to right hip, reinforce as needed - Weight bearing as tolerated - Turn and reposition every 2 hours and as needed - Notify MD if unable to urinate, evans catheter removed 01/29 Prescriptions: New hydrocodone-acetaminophen 5-325 mg Tablet 1 tab PO Q4H PRN (Reason: Pain) Qty: 0 0RF ascorbic acid (vitamin C) [Vitamin C] 500 mg Tablet 500 mg PO DAILY Qty: 0 0RF enoxaparin [Lovenox] 30 mg/0.3 mL Syringe 30 mg subcut BID@1000,2200 Qty: 0 0RF calcium carbonate-vitamin D3 [Oyster Shell Calcium-Vit D3] 500 mg-5 mcg (200 unit) Tablet 1 tab PO TID.WITH.MEALS Qty: 0 0RF ferrous sulfate 324 mg (65 mg iron) Tablet,Delayed Release (Dr/Ec) 324 mg PO BID Qty: 0 0RF Continued amlodipine 5 mg Tablet 5 mg PO DAILY 30 Days Qty: 30 0RF aspirin 81 mg Tablet,Delayed Release (Dr/Ec) 81 mg PO DAILY Qty: 30 0RF atorvastatin 40 mg Tablet 40 mg PO QPM 30 Days Qty: 30 0RF loratadine 10 mg Tablet 10 mg PO DAILY Qty: 30 0RF duloxetine 60 mg Capsule,Delayed Release(Dr/Ec) 60 mg PO DAILY 30 Days Qty: 30 0RF latanoprost 0.005 % Drops 1 drp Eye-Both DAILY 30 Days Qty: 1 0RF hydrochlorothiazide 25 mg Tablet 25 mg PO DAILY 30 Days Qty: 30 0RF fluticasone propionate 50 mcg/actuation [place],Suspension 2 spray intranasal DAILY PRN (Reason: allergy symptoms) 30 Days Qty: 1 0RF multivitamin with folic acid [Thera] 400 mcg Tablet 1 tab PO DAILY Qty: 30 0RF acetaminophen 500 mg Tablet 500 mg PO Q4H PRN (Reason: Pain) Qty: 60 0RF nystatin [Nystop] 100,000 unit/gram Powder 1 applic topical BID Qty: 15 0RF Follow Up: Hannah Gruber MD [Primary Care Provider] - (Follow-up with your Primary Care Provider after discharge from Rehab. ) Rosemary Serra MD [Active Staff] - (Follow-up with Orthopedic Surgery after discharge from Rehab. ) Exam Physical Exam Vital Signs: Temp Pulse Resp BP Pulse Ox O2 Del Method O2 Flow Rate 98.2 F 99 18 150/77 H 94 L Nasal Cannula 2 01/30/24 08:00 01/30/24 10:47 01/30/24 10:47 01/30/24 10:47 01/30/24 10:47 01/30/24 12:10 01/30/24 12:10 Const Orientation: alert, awake and oriented x3 Other: Expressive aphasia but able to communicate. Resp Effort & Inspection: normal respiratory effort and able to speak in complete sentences Auscultation: no rales, no rhonchi and no wheezes Cardio Rate: regular rate Rhythm: regular rhythm Heart Sounds: S1 normal and S2 normal GI Palpation: soft, not firm, no guarding and nontender Neuro General: patient alert, patient awake, patient oriented x3, moves all extremities and no focal motor deficits Cranial Nerves: CN's II-XII intact bilaterally Cognition: normal cognition Speech: expressive aphasia Motor: muscle tone normal throughout and strength 5/5 throughout Extrem General: no clubbing, cyanosis or edema and no calf tenderness Diagnostic Studies Completed and Pending Studies Pending studies at discharge: 01/28/24 20:45 Urine Culture Stat 01/31/24 05:00 Complete Blood Count Auto Diff IN AM 02/01/24 05:00 Complete Blood Count Auto Diff IN AM Preliminary micro results at discharge 01/28/24 20:45 Urine Culture - Preliminary Urine - Clean-Voided Midstream >100,000 colonies/ml mixed bacterial skin contaminants 1 Day Labs on day of discharge: 01/30/24 04:30: Corrected WBC 11.4, Uncorrected WBC Count 11.4, RBC 3.32 L, Hgb 9.9 L, Hct 29.3 L D, MCV 88.2, MCH 29.9, MCHC 34.0, RDW 13.7, Plt Count 144 L, MPV 9.2, Neut % (Auto) 91.5, Lymph % (Auto) 4.0, Bowie % (Auto) 4.3, Eos % (Auto)0.0, Baso % (Auto) 0.2, Nucleat RBC Rel Count 0.0, Neut # (Auto) 10.5 H, Lymph #(Auto) 0.5 L, Bowie # (Auto) 0.5, Eos # (Auto) 0.0, Baso # (Auto) 0.0, PHA Creatinine Clear 56.18, Sodium 134 L, Potassium 3.7, Chloride 104, Carbon Dioxide 27.9, Anion Gap 5.8 L, BUN 17, Creatinine 0.87, Est GFR (CKD-EPI) > 60.0, Glucose 129 H, Calcium 8.0 L, Total Bilirubin 0.4, AST 19, ALT 13, Alkaline Phosphatase 60, Total Protein 5.0 L, Albumin 2.8 L, Globulin 2.2, Albumin/Globulin Ratio 1.3 Documented By: Azar Plaza MD 01/30/24 1306 Signed By: <Electronically signed by Azar Plaza MD> 01/30/24 1313 [facility] Work Phone: Evaluation note* Diagnosis Onset Date Resolution Status Acute CVA (cerebrovascular accident) acute HTN (hypertension) acute [facility] Work Phone: Evaluation note* Diagnosis Onset Date Resolution Status Acute CVA (cerebrovascular accident) acute Anxiety acute Aphasic agraphia acute Expressive aphasia acute HTN (hypertension) acute Oropharyngeal dysphagia [facility] Work Phone: Evaluation note* Diagnosis Onset Date Resolution Status Acute CVA (cerebrovascular accident) acute Anxiety acute Aphasic agraphia acute Expressive aphasia acute HTN (hypertension) acute Oropharyngeal dysphagia acut e Acute CVA (cerebrovascular accident) acute Anxiety acute Aphasic agraphia acute Expressive aphasia acute HTN (hypertension) acute Impaired mobility and activities of daily living [facility]* Diagnosis Onset Date Resolution Status Anxiety acute Aphasic agraphia acute Expressive aphasia acute HTN (hypertension) acute Oropharyngeal dysphagia reso lved Anxiety acute Aphasic agraphia acute Expressive aphasia acute HTN (hypertension) acute Impaired mobility and activities of daily living resolved Oropharyngeal dysphagia reso lved Forearm laceration acute Subcapital fracture of right hip acute [facility] Work Phone: Evaluation note* Diagnosis Onset Date Resolution Status Anxiety acute Aphasic agraphia acute Expressive aphasia acute HTN (hypertension) acute Oropharyngeal dysphagia reso lved Anxiety acute Aphasic agraphia acute Expressive aphasia acute HTN (hypertension) acute Impaired mobility and activities of daily living resolved Oropharyngeal dysphagia reso lved Expressive aphasia acute Forearm laceration acute HTN (hypertension) acute Hypomagnesemia acute Postoperative anemia due to acute blood loss acute Subcapital fracture of right hip acute [facility] Work Phone: Evaluation note* Diagnosis Onset Date Resolution Status Anxiety acute Aphasic agraphia acute Expressive aphasia acute HTN (hypertension) acute Oropharyngeal dysphagia reso lved Anxiety acute Aphasic agraphia acute Expressive aphasia acute HTN (hypertension) acute Impaired mobility and activities of daily living resolved Oropharyngeal dysphagia reso lved Expressive aphasia acute Fall acute Forearm laceration acute Hip fracture, right acute History of CVA (cerebrovascular accident) acute HTN (hypertension) acute Hypomagnesemia acute Postoperative anemia due to acute blood loss acute Subcapital fracture of right hip acute Anxiety acute Depression with anxiety acut e Dyslipidemia acute Expressive aphasia acute Fall acute Glaucoma acute Hip fracture, right acute History of CVA (cerebrovascular accident) acute HTN (hypertension) acute Hypoxia acute Postoperative anemia acute Postoperative anemia due to acute blood loss acute S/P hip hemiarthroplasty acu te Seasonal allergies acute Subcapital fracture of right hip acute [facility] Work Phone: Evaluation note* Diagnosis Onset Date Resolution Status Aphasic agraphia acute Oropharyngeal dysphagia reso lved Aphasic agraphia acute Impaired mobility and activities of daily living resolved Oropharyngeal dysphagia reso lved Forearm laceration acute Hypomagnesemia acute Subcapital fracture of right hip acute Subcapital fracture of right hip acute Other specified postprocedural states acute Subcapital fracture of right hip acute [facility] Work Phone: Evaluation note* Diagnosis Onset Date Resolution Status Aphasic agraphia acute Oropharyngeal dysphagia reso lved Aphasic agraphia acute Impaired mobility and activities of daily living resolved Oropharyngeal dysphagia reso lved Forearm laceration acute Hypomagnesemia acute Subcapital fracture of right hip acute Subcapital fracture of right hip acute Other specified postprocedural states acute Subcapital fracture of right hip acute Other specified postprocedural states acute Subcapital fracture of right hip acute [facility] Work Phone: Evaluation note* Diagnosis Onset Date Resolution Status Forearm laceration acute Hypomagnesemia acute Subcapital fracture of right hip acute Subcapital fracture of right hip acute Other specified postprocedural states acute Subcapital fracture of right hip acute Other specified postprocedural states acute Subcapital fracture of right hip acute Other specified postprocedural states acute Subcapital fracture of right hip acute [facility] Work Phone: Evaluation note* Diagnosis Onset Date Resolution Status Other specified postprocedural states acute Subcapital fracture of right hip acute Other specified postprocedural states acute Subcapital fracture of right hip acute [facility] Work Phone: Evaluation note* Diagnosis Onset Date Resolution Status Other specified postprocedural states acute Subcapital fracture of right hip acute Other specified postprocedural states acute Pain of right sacroiliac joint acute Subcapital fracture of right hip acute Trochanteric bursitis, right hip acute [facility] Work Phone: Evaluation note* Diagnosis Stroke-like symptoms- Primary Other symptoms involving nervous and musculoskeletal systems Cerebrovascular accident (CVA), unspecified mechanism ([facility]) Cardiomyopathy, unspecified type ([facility]) Chest pain, unspecified type NSTEMI (non-ST elevated myocardial infarction) ([facility]) Acute myocardial infarction, subendocardial infarction, episode of care unspecified Hyperlipidemia Other and unspecified hyperlipidemia Hypertension Unspecified essential hypertension Depression Depressive disorder, not elsewhere classified Cerebrovascular accident (CVA) ([facility]) Expressive aphasia Aphasia ACS (acute coronary syndrome) ([facility]) Intermediate coronary syndrome Cardiomyopathy (HCC) Other primary cardiomyopathies Chest pain Chest pain, unspecified 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 (HCC) Cerebral embolism with cerebral infarction Abnormal echocardiogram Nonspecific (abnormal) findings on radiological and other examination of other intrathoracic organs CVA (cerebrovascular accident due to intracerebral hemorrhage) (HCC) Intracerebral hemorrhage High risk medication use Encounter for long-term (current) use of other medications Homonymous hemianopia, right documented in this encounter [facility] Author Howard Golden [facility] January 29, 2024 9:03pm Note Date/Time January 29, 2024 7:06am [facility] [address] [place] [address] Hospitalist H&P Signed with Addenda Patient: Moustapha Alejandra MR#: [id number] : 1945 Acct:[id number] Age/Sex: 78 / F Adm Date: 4 Loc: Room: [address] [place] [address] Type: ADM IN Attending Dr: Azar Plaza MD Copies to: MD Hannah Reddy MD Mazhar Rahman, MD~ ADDENDUM1 Note this is a delayed entry, my evaluation of the patient took place at 2300 01/28/24 Addendum Documented By: Howard Golden MD 01/29/242102 Addendum Signed By: <Electronically signed by Howard Golden MD> 01/29/242102 HPI DATE OF EXAMINATION: 01/29/24 CHIEF COMPLAINT: fall, right hip pain HISTORY OF PRESENT ILLNESS: 78 year old woman with history of HTN, anxiety, recent CVA who presented after afall Per the patient she was in her kitchen this afternoon when she slipped while trying to put down two plates of food on the dinner table. she immediately had severe right hip pain and was unable to gegt up. EMS was activated and pt was brought to the ED for evaluation. Vital signs on arrival to the ED were as follows: T 97.7 P 85 R 18 BP 185/88 SaO2 98% on RA. xrays revealed a right subcapital hip fracture. pt was given dilaudid morphine zofran and normal saline and is admitted for further eval/mgmt ROS: 10 systems reviewed and were negative except as noted in the HPI FORMERLY [facility], [facility] Medical History Right humeral fracture Acute CVA (cerebrovascular accident) Anxiety HTN (hypertension) Family History Father Mother Social History Smoking Status: Never smoker Substance Use Type: None Meds Medications and Allergies Allergies Iodinated Contrast Media [From Contrast Media] Allergy (Severe, Verified 01/28/24 18:13) Anaphylaxis meperidine [Demerol] Allergy (Unknown, Verified 01/28/24 18:13) Unknown Reaction neomycin Allergy (Unknown, Verified 01/28/24 18:13) Unknown Reaction Home Medications acetaminophen 500 mg tablet 500 mg PO Q4H PRN Pain #60 tabs 01/01/24 [Rx Confirmed 01/28/24] amlodipine 5 mg tablet 5 mg PO DAILY 30 days #30 tabs 01/01/24 [Rx Confirmed 01/28/24] aspirin 81 mg tablet,delayed release 81 mg PO DAILY #30 tabs 01/01/24 [Rx Confirmed 01/28/24] atorvastatin 40 mg tablet 40 mg PO QPM 30 days #30 tabs 01/01/24 [Rx Confirmed 01/28/24] duloxetine 60 mg capsule,delayed release 60 mg PO DAILY 30 days #30 caps 01/01/24 [Rx Confirmed 01/28/24] fluticasone propionate 50 mcg/actuation nasal spray,suspension 2 spray intranasal DAILY PRN allergy symptoms 30 days #1 ea 01/01/24 [Rx Confirmed 01/28/24] hydrochlorothiazide 25 mg tablet 25 mg PO DAILY 30 days #30 tabs 01/01/24 [Rx Confirmed 01/28/24] latanoprost 0.005 % eye drops 1 drp Eye-Both DAILY 30 days #1 ea 01/01/24 [Rx Confirmed 01/28/24] loratadine 10 mg tablet 10 mg PO DAILY #30 tabs 01/01/24 [Rx Confirmed 01/28/24] multivitamin with folic acid 400 mcg tablet (Thera) 1 tab PO DAILY #30 tabs 01/01/24 [Rx Confirmed 01/28/24] nystatin 100,000 unit/gram topical powder (Nystop) 1 applic topical BID #15 grams 01/01/24 [Rx Confirmed 01/28/24] Exam Physical Exam Vital Signs: Temp Pulse Resp BP Pulse Ox O2 Del Method O2 Flow Rate 97.6 F 82 17 148/81 H 95 Nasal Cannula 3 01/29/24 03:47 01/29/24 03:47 01/29/24 03:47 01/29/24 03:47 01/29/24 03:47 01/29/24 04:10 01/29/24 04:10 Const General: cooperative, no acute distress and well developed HEENT Head: normal to inspection Ears: external ears normal Nose: external nose normal Face and sinus: normal facial exam Mouth: oral mucosae normal Throat: posterior oropharynx normal Eyes General: appearance normal, both eyes and all related structures Visual Sellers: normal visual sellers by confrontation Sclera: sclerae normal Pupils: PERRL and accommodation normal Neck Neck: normal visual inspection, no lymphadenopathy and supple Thyroid: thyroid normal Lymphatic: no lymphadenopathy noted Chest Chest palpation & inspection: normal inspection of the chest Resp Effort & Inspection: normal respiratory effort, able to speak in complete sentences and symmetric chest movement Auscultation: clear to auscultation bilaterally Cardio Palpation: normal PMI Rate: regular rate Rhythm: regular rhythm Heart Sounds: S1 normal and S2 normal GI Inspection: normal to inspection Palpation: soft Auscultation: normal bowel sounds General: bladder normal to palpation Bimanual Exam- Vagina & Uterus: bladder normal to palpation Musc Cervical Spine: cervical ROM normal Thoracic/Lumbar Spine: thoracic and lumbar spine normal to inspection Skin General: no rashes or lesions noted and turgor normal Neuro General: patient alert, patient awake and patient oriented x3 Cranial Nerves: CN's II-XII intact bilaterally Cognition: normal cognition Speech: expressive aphasia Extrem General: normal to inspection and full ROM Psych Appearance: grossly normal Mental Status: mental status grossly normal Affect: normal affect Speech and Movement: speech and movement normal Attitude: cooperative Results - Hospitalist H&P Lab Results Labs: Laboratory Last Values Corrected WBC 13.4 X10E3/uL (3.8-11.6) H 01/29/24 05:29 Uncorrected WBC Count 13.4 x10E3/uL (3.8-11.6) H 01/29/24 05:29 RBC 4.86 X10E6/uL (3.60-5.00) 01/29/24 05:29 Hgb 14.3 g/dL (11.8-15.4) 01/29/24 05:29 Hct 43.0 % (34.0-46.4) 01/29/24 05:29 MCV 88.6 fl (80-100) 01/29/24 05:29 MCH 29.4 pg (24.7-34.3) 01/29/24 05:29 MCHC 33.1 g/dL (32.0-35.0) 01/29/24 05:29 RDW 13.9 % (11.9-15.3) 01/29/24 05:29 Plt Count 164 x10E3/uL (150-450) 01/29/24 05:29 MPV 8.8 fl (6.3-10.7) 01/29/24 05:29 Neut % (Auto) 89.0 % (.) 01/29/24 05:29 Lymph % (Auto) 4.1 % (.) 01/29/24 05:29 Bowie % (Auto) 5.5 % (.) 01/29/24 05:29 Eos % (Auto) 0.5 % (.) 01/29/24 05:29 Baso % (Auto) 0.9 % (.) 01/29/24 05:29 Nucleat RBC Rel Count 0.1 /100 WBC (0-0.5) 01/29/24 05:29 Neut # (Auto) 11.9 x10E3/uL (1.8-7.7) H 01/29/24 05:29 Lymph # (Auto) 0.5 x10E3/uL (1.00-4.8) L 01/29/24 05:29 Bowie # (Auto) 0.7 x10E3/uL (0.0-0.8) 01/29/24 05:29 Eos # (Auto) 0.1 x10E3/uL (0.0-0.45) 01/29/24 05:29 Baso # (Auto) 0.1 x10E3/uL (0.0-0.2) 01/29/24 05:29 Monocyte Dist Width 18.35 % (0.00-20.00) 01/28/24 18:30 PT 11.4 Seconds (9.0-12.9) 01/28/24 18:30 INR 1.0 01/28/24 18:30 APTT 26.6 Seconds (25.1-36.5) 01/28/24 18:30 PHA Creatinine Clear 58.19 01/29/24 05:29 Sodium 135 mmol/L (136-145) L 01/29/24 05:29 Potassium 3.9 mmol/L (3.5-5.1) 01/29/24 05:29 Chloride 103 mmol/L (98-107) 01/29/24 05:29 Carbon Dioxide 25.0 mmol/L (21.0-31.0) 01/29/24 05:29 Anion Gap 10.9 mEq/L (6.0-15.0) 01/29/24 05:29 BUN 20 mg/dL (7-25) 01/29/24 05:29 Creatinine 0.84 mg/dL (0.60-1.20) 01/29/24 05:29 Est GFR (CKD-EPI) > 60.0 mL/Min 01/29/24 05:29 Glucose 112 mg/dL (70-100) H 01/29/24 05:29 Calcium 8.4 mg/dL (8.6-10.3) L 01/29/24 05:29 Phosphorus 4.3 mg/dL (2.5-4.5) 01/29/24 05:29 Magnesium 1.7 mg/dL (1.9-2.7) L 01/29/24 05:29 Total Bilirubin 0.5 mg/dl (0.3-1.0) 01/29/24 05:29 AST 18 U/L (13-39) 01/29/24 05:29 ALT 13 U/L (7-52) 01/29/24 05:29 Alkaline Phosphatase 78 U/L (34-104) 01/29/24 05:29 Total Protein 6.4 gm/dL (6.4-8.9) 01/29/24 05:29 Albumin 3.7 gm/dL (3.5-5.7) 01/29/24 05:29 Globulin 2.7 gm/dL 01/29/24 05:29 Albumin/Globulin Ratio 1.4 01/29/24 05:29 Urine Color Yellow (Yellow) 01/28/24 20:45 Urine Appearance Cloudy (Clear) A 01/28/24 20:45 Urine pH 5.5 (5.0-9.0) 01/28/24 20:45 Ur Specific [place] 1.019 (1.001-1.030) 01/28/24 20:45 Urine Protein Negative mg/dL (Negative) 01/28/24 20:45 Urine Glucose (UA) Normal mg/dL (Normal) 01/28/24 20:45 Urine Ketones 1+ (Negative) H 01/28/24 20:45 Urine Occult Blood 1+ (Negative) H 01/28/24 20:45 Urine Nitrite Negative (Negative) 01/28/24 20:45 Urine Bilirubin Negative (Negative) 01/28/24 20:45 Urine Urobilinogen Normal mg/dL (Normal) 01/28/24 20:45 Ur Leukocyte Esterase 3+ (Negative) H 01/28/24 20:45 Urine RBC 3-4 /HPF (0-4) 01/28/24 20:45 Urine WBC 20-49 /HPF (0-4) H 01/28/24 20:45 Ur Squamous Epith Cells 0-1 /HPF (0-2) 01/28/24 20:45 Calcium Oxalate Crystal 2+ /HPF 01/28/24 20:45 Urine Bacteria None seen /HPF (None Seen) 01/28/24 20:45 Hyaline Casts 0-8 /LPF (0-8) 01/28/24 20:45 Urine Yeast N/A 01/28/24 20:45 Urine Opiates Screen Positive (Negative) H 01/28/24 20:45 Ur Barbiturates Screen Negative (Negative) 01/28/24 20:45 Ur Phencyclidine Scrn Negative (Negative) 01/28/24 20:45 Ur Amphetamines Screen Negative (Negative) 01/28/24 20:45 U Benzodiazepines Scrn Negative (Negative) 01/28/24 20:45 Urine Cocaine Screen Negative (Negative) 01/28/24 20:45 U Marijuana (THC) Screen Negative (Negative) 01/28/24 20:45 Blood Type A Positive 01/28/24 20:53 Blood Type Recheck A Positive 01/29/24 00:24 Antibody Screen Negative 01/28/24 20:53 Assessment & Plan Assessment/Plan (1) Subcapital fracture of right hip: Plan admit pain control- toradol/morphine gentle IVF while NPO continue home meds as ordered ortho contacted- plan for operative intervention in am. NPO after midnight no medical contraindication to surgery VTE prophylaxis per attending surgeon full code IP vs OBS Justification Based on differential dx, clinical care plan, and risk of adverse events, if untreated, in my clinical judgement this patient requires an acute care setting as: INPATIENT because of an expectation of an over 2 midnight stay. Estimated length of stay (# of days): 4 Documented By: Howard Golden MD 01/29/24 0658 Signed By: <Electronically signed by Howard Golden MD> 01/29/24 0706 [facility] Work Phone: Hospital Discharge instructions Additional Instructions Code status: Full code Activity: Weight bearing as tolerated Diet:Regular Out Patient therapy will call you with an appt time You have been given prescriptions for new and/or needed medications. These prescriptions are for a one-time fill only, with no re-fills. For further re-fills going forward, you will need to address with your PCP at your follow up appointment, or by calling your PCP s office prior to the prescriptions running out. NOTE: please call within 24 hours if you need to cancel or change any follow up appointments. Arrive early to all follow up appointments, bring current medication list, photo ID and any insurance card(s) to all future follow ups (listed below). Please remember to wear a mask to all appointments. If you develop any symptoms (cough, fever/chills, shortness of breath, sore throat, nausea/vomiting, etc.) please contact your provider's office to inform them prior to your appointment.[facility] Work Phone: Progress note Author Dave Naylor [facility] December 23, 2023 4:10pm Note Date/Time December 23, 2023 4:10 pm [facility] [address] [place] [address] Neurology Progress Note Signed Patient: Moustapha Alejandra MR#: [id number] : 1945 Acct:[id number] Age/Sex: 78 / F Adm Date: 4 Loc: Room: [address] [place] [address] Type: ADM IN Attending Dr: Marcelle Gaston DO Copies to: ~ Date of Service: 12/23/2023 Exam Physical Exam Vital Signs: Temp Pulse Resp BP Pulse Ox O2 Del Method 98.0 F 93 18 178/86 H 99 Room Air 12/23/23 12:00 12/23/23 13:00 12/23/23 13:00 12/23/23 13:00 12/23/23 13:00 12/23/23 09:00 Objective Vital Signs Vital Signs: Vital Signs - 24 hr 12/22/23 16:24 12/22/23 17:26 12/22/23 18:27 Temperature Pulse Rate [Bilateral Radial] Pulse Rate [Monitor] 82 78 84 Respiratory Rate 22 15 22 Blood Pressure [Left Arm] 179/82 H 163/79 H 178/84 H Blood Pressure [Right Arm] 02 Sat by Pulse Oximetry 96 95 96 Oxygen Delivery Method Room Air Room Air Room Air 12/22/23 19:30 12/22/23 20:00 12/22/23 20:09 Temperature 97.7 F Pulse Rate [Bilateral Radial] Pulse Rate [Monitor] 76 81 Respiratory Rate 22 16 Blood Pressure [Left Arm] 169/85 H 165/82 H Blood Pressure [Right Arm] 02 Sat by Pulse Oximetry 94 L 97 Oxygen Delivery Method Room Air Room Air Room Air 12/22/23 21:30 12/22/23 22:02 12/22/23 23:08 Temperature Pulse Rate [Bilateral Radial] Pulse Rate [Monitor] 78 78 77 Respiratory Rate 16 16 18 Blood Pressure [Left Arm] 152/72 H 168/82 H 163/77 H Blood Pressure [Right Arm] 02 Sat by Pulse Oximetry 99 99 94 L Oxygen Delivery Method Room Air Room Air Room Air 12/23/23 00:30 12/23/23 01:30 12/23/23 03:00 Temperature Pulse Rate [Bilateral Radial] Pulse Rate [Monitor] 70 72 69 Respiratory Rate 14 14 16 Blood Pressure [Left Arm] 183/81 H 178/87 H 165/80 H Blood Pressure [Right Arm] 02 Sat by Pulse Oximetry 91 L 91 L 92 L Oxygen Delivery Method Room Air Room Air Room Air 12/23/23 04:00 12/23/23 05:00 12/23/23 06:00 Temperature 97.9 F Pulse Rate [Bilateral Radial] Pulse Rate [Monitor] 74 70 71 Respiratory Rate 16 20 16 Blood Pressure [Left Arm] 152/85 H 145/82 H 142/66 H Blood Pressure [Right Arm] 02 Sat by Pulse Oximetry 93 L 92 L 91 L Oxygen Delivery Method Room Air Room Air Room Air 12/23/23 07:00 12/23/23 09:00 12/23/23 10:00 Temperature 97.8 F Pulse Rate [Bilateral Radial] 78 94 93 Pulse Rate [Monitor] Respiratory Rate 18 20 18 Blood Pressure [Left Arm] 179/86 H 157/77 H Blood Pressure [Right Arm] 164/85 H 02 Sat by Pulse Oximetry 98 96 97 Oxygen Delivery Method Room Air Room Air 12/23/23 11:00 12/23/23 12:00 12/23/23 13:00 Temperature 98.0 F Pulse Rate [Bilateral Radial] 88 93 Pulse Rate [Monitor] 86 Respiratory Rate 18 16 18 Blood Pressure [Left Arm] 156/94 H 166/93 H 178/86 H Blood Pressure [Right Arm] 02 Sat by Pulse Oximetry 95 96 99 Oxygen Delivery Method Labs 12/23/23 04:25 12/23/23 04:25 Therapy Recommendations Therapy Recommendations: OT Recommendations OT Recommended Discharge Inpatient Rehab Unit Location OT Recommended Services at Physical Therapy,Occupational Therapy Discharge PT Recommendations PT Recommended Discharge Inpatient Rehab Unit Location PT Recommended Services at Physical Therapy Discharge ST Recommendations Level of Supervision Intermittent Supervision Liquid Consistency Thin Liquids Recommendation Solid Consistency Dental Soft Solids Recommendations Meat Consistency Chopped Meats Recommendations Medication Administration Whole Pills,Give Pills in Applesauce,Give Pills with Water Dysphagia Swallow Precautions/ Sitting Upright (90 deg),Small Bites/Sips,Pacing Strategies /Slow-Rate,Alternate Liquids/Solids ST Recommended Services at Speech Therapy,14/04 Supervision Discharge Assessment/Plan (1) Expressive aphasia: (2) Acute CVA (cerebrovascular accident): Plan SUBJECTIVE: No overnight events. She and family members have noticed a little bit of improvement with her expressive language deficits today. Yesterday she was limited to yes and no answers. Today she does say some brief phrases or partialphrases. No new symptoms to add to review of systems. EXAMINATION: In no distress. Limbs seem well-perfused. No significant edema. Normal work of breathing. Skin shows age associated findings. Affect is normal. She appears alert. Good eye contact and attention. Severe expressive language deficits. Agraphia. Receptive language is good. Follows commands without issue. Comprehends speech. Pupils appear equal. Gaze is conjugate. Minimal to no right facial droop. Muscle bulk and tone and strength seem full and normal. No tremors. Light touch is intact. No limb ataxia. DATA REVIEW: -CT head was nonacute -CTA head and neck were nonacute and demonstrated good patent intracranial and extracranial vasculature -Echocardiogram ejection fraction 60 to 65%, negative bubble, left atrium mildlydilated, no thrombus or mass or vegetation -A1c 5.4% -LDL 101 ASSESSMENT: Acute ischemic stroke, left frontal lobe approximating Broca's area. Status post tenecteplase. Has severe expressive aphasia and associated agraphia. Someright- sided strength deficits have seemingly resolved. MRI also showed presence of a small amount of right frontal encephalomalacia from an old stroke. Consider chronic potential cardioembolic cause, such as paroxysmal atrial fibrillation. PLAN: 1. Aspirin 81 mg daily 2. Atorvastatin 40 mg daily 3. Okay with discharge to acute inpatient rehabilitation 4. No longer needing any permissive hypertension, normotension will be the long- term goal 5. Will need eventual 30-day cardiac event monitor Documented By: Dave Naylor DO 12/23/23 1603 Signed By: <Electronically signed by Dave Naylor DO> 12/23/23 1610 [facility] Work Phone: Progress note Author Azar Plaza [facility] January 29, 2024 8:44am Note Date/Time January 29, 2024 8:42am [facility] [address] [place] [address] Hospitalist Progress Note Signed Patient: Moustapha Alejandra MR#: [id number] : 1945 Acct:[id number] Age/Sex: 78 / F Adm Date: 4 Loc: 4N Room: 4S5171-0 Type: ADM IN Attending Dr: Azar Plaza MD Copies to: ~ Date of Service: 01/29/2024 Subjective Subjective Narrative: On examination patient resting comfortably and currently denies any complaint. She does have expressive aphasia from recent stroke with difficulty communicating but it has improved. She was admitted last night when she presented to ER after a fall found to have right hip fracture. Orthopedic has been consulted and patient scheduled for surgery later today. Patient denies feeling dizzy or having syncopal episode. She slipped while trying to put down the plates in the kitchen. Patient was recently discharged from the hospital when admitted for acute CVA which she received TNKase. She was found to have left MCA distribution infarct and was discharged on aspirin and statin from inpatient rehab. Patient did not have any other focal deficit other than expressive aphasia. Neurology recommended event monitor on discharge. Patient mentioned having issues with event monitor which she wore for 5 days and appearsshe would prefer to have wireless monitor. Exam Physical Exam Vital Signs: Temp Pulse Resp BP Pulse Ox O2 Del Method O2 Flow Rate 97.9 F 87 17 149/79 H 97 Nasal Cannula 3 01/29/24 08:00 01/29/24 08:00 01/29/24 03:47 01/29/24 08:00 01/29/24 08:00 01/29/24 08:00 01/29/24 08:00 Const Orientation: alert, awake and oriented x3 Other: Expressive aphasia but able to communicate. Following commands and answering appropriately. Resp Effort & Inspection: normal respiratory effort and able to speak in complete sentences Auscultation: no rales, no rhonchi and no wheezes Cardio Rate: regular rate Rhythm: regular rhythm Heart Sounds: S1 normal and S2 normal GI Palpation: soft, not firm, no guarding and nontender Neuro General: patient alert, patient awake, patient oriented x3, moves all extremities and no focal motor deficits Cranial Nerves: CN's II-XII intact bilaterally Cognition: normal cognition Speech: expressive aphasia Motor: muscle tone normal throughout and strength 5/5 throughout Extrem General: no clubbing, cyanosis or edema and no calf tenderness Objective Lab Results 01/29/24 05:29 01/29/24 05:29 Meds Allergies and Active Meds Allergies Iodinated Contrast Media [From Contrast Media] Allergy (Severe, Verified 01/28/24 18:13) Anaphylaxis meperidine [Demerol] Allergy (Unknown, Verified 01/28/24 18:13) Unknown Reaction neomycin Allergy (Unknown, Verified 01/28/24 18:13) Unknown Reaction Active Meds: Active Medications Generic Name Dose Route Start Last Admin Trade Name Freq PRN Reason Stop Dose Admin Acetaminophen 1,000 mg 01/28/24 23:31 Acetaminophen 500 Mg Tablet PO 01/27/25 23:30 Q8H PRN Fever or Pain Hydrocodone Bitart/Acetaminophen 1 tab 01/28/24 23:31 Hydrocodone/Acetaminophen 5-325 Mg Tablet PO Q4H PRN Pain Hydrocodone Bitart/Acetaminophen 2 tab 01/28/24 23:31 Hydrocodone/Acetaminophen 5-325 Mg Tablet PO Q4H PRN Pain Ascorbic Acid 500 mg 01/29/24 09:00 Ascorbic Acid 500 Mg Tablet PO 01/28/25 08:59 DAILY GENEVIEVE Calcium Carbonate 1 tab 01/29/24 08:00 Calcium Carbonate/Vitamin D3 500 Mg/200 Unit Tablet PO 01/28/25 07:59 TID.WITH.MEALS [facility] Cyclobenzaprine HCl 5 mg 01/28/24 23:31 Cyclobenzaprine 5 Mg Tablet PO 01/27/25 23:30 Q8H PRN Muscle Spasm Docusate Sodium 100 mg 01/29/24 09:00 Docusate 100 Mg Capsule PO 01/28/25 08:59 BID [facility] Enoxaparin Sodium 40 mg 01/30/24 10:00 Enoxaparin 40 Mg/0.4 Ml Syringe SUBCUT 01/29/25 09:59 DAILY@10 GENEVIEVE Famotidine 20 mg 01/29/24 09:00 Famotidine 20 Mg Tablet PO 01/28/25 08:59 BID [facility] Ferrous Sulfate 324 mg 01/29/24 09:00 Ferrous Sulfate 324 Mg Tablet.Dr PO 01/28/25 08:59 BID [facility] Hydromorphone HCl 0.5 mg 01/28/24 23:31 01/29/24 07:45 Hydromorphone 0.5 Mg/0.5 Ml Syringe IV-PUSH 0.5 mg Q2H PRN Administration Pain Scale 1 - 3 Hydromorphone HCl 1 mg 01/28/24 23:31 01/29/24 04:14 Hydromorphone 1 Mg/Ml Syringe IV-PUSH 1 mg Q2H PRN Administration Pain Scale 4 - 6 Cefazolin Sodium 2 gm in 50 mls @ 100 mls/hr 01/29/24 14:00 Ancef IV 01/29/24 14:29 PREOP ONE Sodium Chloride 1,000 mls @ 80 mls/hr 01/29/24 00:05 01/29/24 05:43 0.9% Sodium Chloride 1,000 Ml IV 01/28/25 00:04 80 mls/hr .[id number] GENEVIEVE Administration Potassium Chloride 20 meq/ 260 mls @ 130 mls/hr 01/28/24 23:32 01/29/24 01:58 Sodium Chloride IV 01/27/25 23:31 130 mls/hr DAILY PRN Administration Hypokalemia Potassium Chloride 40 meq/ 520 mls @ 130 mls/hr 01/28/24 23:32 Sodium Chloride IV 01/27/25 23:31 DAILY PRN Hypokalemia Magnesium Sulfate 2 gm in 50 mls @ 25 mls/hr 01/28/24 23:32 Magnesium Sulf 2gm-*Swfi* IV 01/27/25 23:31 DAILY PRN Magnesium Level < 1.5 Ketorolac Tromethamine 15 mg 01/28/24 23:40 01/29/24 05:42 Ketorolac Tromethamine 15 Mg/Ml Vial IV-PUSH 01/30/24 14:01 15 mg Q8HR GENEVIEVE Administration Magnesium Hydroxide 30 ml 01/28/24 23:31 Magnesium Hydroxide Susp 30 Ml Udc PO 01/27/25 23:30 DAILY PRN Constipation Morphine Sulfate 2 mg 01/28/24 23:27 Morphine Sulfate 2 Mg/Ml Vial IV-PUSH Q4H PRN Pain Scale 4 - 7 Morphine Sulfate 4 mg 01/28/24 23:27 Morphine Sulfate 4 Mg/Ml Cartridge IV-PUSH Q4H PRN Pain Scale 8 - 10 Ondansetron HCl 4 mg 01/28/24 23:31 Ondansetron 4 Mg/2 Ml Vial IV-PUSH 01/27/25 23:30 Q6H PRN Nausea And Vomiting Sodium Chloride 0 ml 01/28/24 18:12 01/28/24 22:48 Sodium Chloride 0.9 % 10 Ml Syringe IV-PUSH 01/27/25 18:11 10 ml PRN PRN Administration Flush Sodium Chloride 0 ml 01/28/24 23:31 Sodium Chloride 0.9 % 10 Ml Syringe IV-PUSH 01/27/25 23:30 PRN PRN Flush A&P - Hospitalist Assessment/Plan (1) Subcapital fracture of right hip: (2) Expressive aphasia: (3) HTN (hypertension): (4) Hypomagnesemia: Plan Patient is a 78-year-old female who was recently discharged in the hospital after acute stroke which led to expressive aphasia and received TNKase. She does have history of hypertension for which she takes hydrochlorothiazide. She was brought to the emergency room yesterday after a mechanical fall when she slipped in the kitchen and found to have right hip fracture. Orthopedic was consulted by ER and patient scheduled for surgery later today. Recommend continued telemetry monitoring given her recent stroke and also speech therapy. Continue aspirin and statin. Replace magnesium. Will hold hydrochlorothiazide and continue amlodipine. IV. Medication fractured hypertension. DVT prophylaxis. Urinalysis showing WBC count of 20-49 with 3+ leukocyte esterase. She did have leukocytosis and will be started on ceftriaxone for acute cystitis until cultures are back. Documented By: Azar Plaza MD 01/29/24 0834 Signed By: <Electronically signed by Azar Plaza MD> 01/29/2444 [facility] [facility] Work Phone: Progress note Author Azar Plaza [facility] January 30, 2024 9:42am Note Date/Time January 30, 2024 9:42a m [facility] [address] [place] [address] Hospitalist Progress Note Signed Patient: Moustapha Alejandra MR#: [id number] : 1945 Acct:[id number] Age/Sex: 78 / F Adm Date: 4 Loc: 4 Room: [address] [place] [address] Type: ADM IN Attending Dr: Azar Plaza MD Copies to: ~ Date of Service: 01/30/2024 Subjective Subjective Narrative: Patient examined at bedside currently denies any complaint. Continues to have expressive aphasia but denies having pain. Yesterday she underwent ORIF for right hip fracture without any complication. Exam Physical Exam Vital Signs: Temp Pulse Resp BP Pulse Ox O2 Del Method O2 Flow Rate 98.2 F 69 18 118/56 L 97 Nasal Cannula 2 01/30/24 08:00 01/30/24 08:00 01/30/24 08:00 01/30/24 08:00 01/30/24 08:00 01/30/24 08:00 01/30/24 08:00 Const Orientation: alert, awake and oriented x3 Other: Expressive aphasia but able to communicate. Resp Effort & Inspection: normal respiratory effort and able to speak in complete sentences Auscultation: no rales, no rhonchi and no wheezes Cardio Rate: regular rate Rhythm: regular rhythm Heart Sounds: S1 normal and S2 normal GI Palpation: soft, not firm, no guarding and nontender Neuro General: patient alert, patient awake, patient oriented x3, moves all extremities and no focal motor deficits Cranial Nerves: CN's II-XII intact bilaterally Cognition: normal cognition Speech: expressive aphasia Motor: muscle tone normal throughout and strength 5/5 throughout Extrem General: no clubbing, cyanosis or edema and no calf tenderness Objective Lab Results 01/30/24 04:30 01/30/24 04:30 Microbiology Results Microbiology 01/28/24 20:45 Urine - Clean-Voided Midstream Urine Culture - Preliminary >100,000 colonies/ml mixed bacterial skin contaminants 1 Day Meds Allergies and Active Meds Allergies Iodinated Contrast Media [From Contrast Media] Allergy (Severe, Verified 01/28/24 18:13) Anaphylaxis meperidine [Demerol] Allergy (Unknown, Verified 01/28/24 18:13) Unknown Reaction neomycin Allergy (Unknown, Verified 01/28/24 18:13) Unknown Reaction Active Meds: Active Medications Generic Name Dose Route Start Last Admin Trade Name Freq PRN Reason Stop Dose Admin Acetaminophen 1,000 mg 01/28/24 23:31 Acetaminophen 500 Mg Tablet PO 01/27/25 23:30 Q8H PRN Fever or Pain Hydrocodone Bitart/Acetaminophen 1 tab 01/28/24 23:31 Hydrocodone/Acetaminophen 5-325 Mg Tablet PO Q4H PRN Pain Hydrocodone Bitart/Acetaminophen 2 tab 01/28/24 23:31 01/30/24 05:59 Hydrocodone/Acetaminophen 5-325 Mg Tablet PO 2 tab Q4H PRN Administration Pain Amlodipine Besylate 5 mg 01/29/24 09:00 01/30/24 08:08 Amlodipine 5 Mg Tablet PO 01/28/25 08:59 5 mg DAILY GENEVIEVE Administration Ascorbic Acid 500 mg 01/29/24 09:00 01/30/24 08:07 Ascorbic Acid 500 Mg Tablet PO 01/28/25 08:59 500 mg DAILY GENEVIEVE Administration Aspirin 81 mg 01/29/24 09:00 01/30/24 08:07 Aspirin 81 Mg Tablet. PO 01/28/25 08:59 81 mg DAILY GENEVIEVE Administration Atorvastatin Calcium 40 mg 01/29/24 21:00 01/29/24 20:54 Atorvastatin 40 Mg Tablet PO 01/28/25 20:59 40 mg QPM GENEVIEVE Administration Calcium Carbonate 1 tab 01/29/24 08:00 01/30/24 08:07 Calcium Carbonate/Vitamin D3 500 Mg/200 Unit Tablet PO 01/28/25 07:59 1 tab TID.WITH.MEALS GENEVIEVE Administration Cyclobenzaprine HCl 5 mg 01/28/24 23:31 Cyclobenzaprine 5 Mg Tablet PO 01/27/25 23:30 Q8H PRN Muscle Spasm Docusate Sodium 100 mg 01/29/24 21:00 01/30/24 08:07 Docusate 100 Mg Capsule PO 01/28/25 20:59 100 mg BID GENEVIEVE Administration Duloxetine HCl 60 mg 01/29/24 09:00 01/30/24 08:07 Duloxetine 60 Mg Capsule. PO 01/28/25 08:59 60 mg DAILY GENEVIEVE Administration Enoxaparin Sodium 30 mg 01/30/24 10:00 Enoxaparin 30 Mg/0.3 Ml Syringe SUBCUT 01/29/25 09:59 BID@1000,2200 GENEVIEVE Famotidine 20 mg 01/29/24 09:00 01/30/24 08:07 Famotidine 20 Mg Tablet PO 01/28/25 08:59 20 mg BID GENEVIEVE Administration Ferrous Sulfate 324 mg 01/29/24 09:00 01/30/24 08:07 Ferrous Sulfate 324 Mg Tablet. PO 01/28/25 08:59 324 mg BID GENEVIEVE Administration Hydromorphone HCl 0.5 mg 01/28/24 23:31 01/29/24 07:45 Hydromorphone 0.5 Mg/0.5 Ml Syringe IV-PUSH 0.5 mg Q2H PRN Administration Pain Scale 1 - 3 Hydromorphone HCl 1 mg 01/28/24 23:31 01/29/24 04:14 Hydromorphone 1 Mg/Ml Syringe IV-PUSH 1 mg Q2H PRN Administration Pain Scale 4 - 6 Sodium Chloride 1,000 mls @ 80 mls/hr 01/29/24 00:05 01/30/24 03:33 0.9% Sodium Chloride 1,000 Ml IV 01/28/25 00:04 80 mls/hr .[id number] GENEVIEVE Administration Ceftriaxone Sodium 1 gm in 50 mls @ 100 mls/hr 01/29/24 09:15 01/29/24 09:18 Rocephin IV 100 mls/hr Q24H GENEVIEVE Administration Lactated Ringer's 1,000 mls @ 20 mls/hr 01/29/24 14:30 01/29/24 14:25 Lactated Ringers IV 01/28/25 14:29 20 mls/hr .Q24H GENEVIEVE Infusion Latanoprost 1 drops 01/29/24 10:00 01/29/24 11:59 Latanoprost 0.005% Op Soln 50 Drops/2.5 Ml Bottle EYE-BOTH 01/28/25 09:59 Not Given DAILY GENEVIEVE Magnesium Hydroxide 30 ml 01/29/24 14:17 Magnesium Hydroxide Susp 30 Ml Udc PO 01/28/25 14:16 BID PRN Constipation Morphine Sulfate 2 mg 01/28/24 23:27 Morphine Sulfate 2 Mg/Ml Vial IV-PUSH Q4H PRN Pain Scale 4 - 7 Morphine Sulfate 4 mg 01/28/24 23:27 Morphine Sulfate 4 Mg/Ml Cartridge IV-PUSH Q4H PRN Pain Scale 8 - 10 Ondansetron HCl 4 mg 01/29/24 14:17 Ondansetron 4 Mg/2 Ml Vial IV-PUSH 01/28/25 14:16 Q6H PRN Nausea/Vomiting Sodium Chloride 0 ml 01/28/24 18:12 01/28/24 22:48 Sodium Chloride 0.9 % 10 Ml Syringe IV-PUSH 01/27/25 18:11 10 ml PRN PRN Administration Flush Sodium Chloride 0 ml 01/28/24 23:31 Sodium Chloride 0.9 % 10 Ml Syringe IV-PUSH 01/27/25 23:30 PRN PRN Flush A&P - Hospitalist Assessment/Plan (1) Subcapital fracture of right hip: (2) Expressive aphasia: (3) HTN (hypertension): (4) Hypomagnesemia: (5) Postoperative anemia due to acute blood loss: Plan Patient postop day 1 with no overnight event. She denies having right hip pain. She did work with physical therapy earlier today. Discontinue Evans catheter. Morning labs did show postoperative blood loss anemia with hemoglobin dropped to 9.9 from 14.3 yesterday. She denies feeling dizzy or having generalized weakness. Continue monitor. Start iron supplement. She is hopeful to go to inpatient rehab. Lovenox for DVT prophylaxis. Continue aspirin and statin given her recent stroke. Urine culture showing contaminant patient on ceftriaxone. Plan to treat with 3 days. Continue amlodipine with hydrochlorothiazide on hold prevent hypotension. Can be resumed if blood pressure remains high. Documented By: Azar Plaza MD 01/30/24 0938 Signed By: <Electronically signed by Azar Plaza MD> 01/30/24 0990 [facility] Work Phone: Summary Purpose Family History No Family History Records Found Relationship Condition Age at Onset Recorded Date/T jose angel father Unknown Not Specified Unknown Relationship Condition Age at Onset Recorded Date/T jose angel father Unknown mother Unknown Advance Directives No Advanced Directives Records Found Advance Directive Response Recorded Date/ Time Advance Directives Yes July 06, 2020 8:18am Date Activated Date Inactivated Comments 05/30/2025 7:44 PM Chief Complaint and Reason for Visit Chief Complaint Altered / Change Men marcy Status Altered / Change Mental Status Reason for Visit Acute CVA (cerebrova scular accident) HTN (hypertension) Chief Complaint Altered / Change Men marcy Status Altered / Change Mental Status Altered / Change Mental Status Altered / Change Mental Status Altered / Change Mental Status Reason for Visit Acute CVA (cerebrova scular accident) Anxiety Aphasic agraphia Expressive aphasia HTN (hypertension) Oropharyngeal dysphagia Chief Complaint Altered / Change Men marcy Status Altered / Change Mental Status Altered / Change Mental Status Altered / Change Mental Status Altered / Change Mental Status 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 Reason for Visit Acute CVA (cerebrova scular accident) Anxiety Aphasic agraphia Expressive aphasia HTN (hypertension) Oropharyngeal dysphagia Acute CVA (cerebrovascular accident) Anxiety Aphasic agraphia Expressive aphasia HTN (hypertension) Impaired mobility and activities of daily living Oropharyngeal dysphagia Chief Complaint Altered / Change Men marcy Status Altered / Change Mental Status Altered / Change Mental Status Altered / Change Mental Status Altered / Change Mental Status 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 fall Reason for Visit Anxiety Aphasic agraphia Expressive aphasia HTN (hypertension) Oropharyngeal dysphagia Anxiety Aphasic agraphia Expressive aphasia HTN (hypertension) Impaired mobility and activities of daily living Oropharyngeal dysphagia Forearm laceration Subcapital fracture of right hip Chief Complaint Altered / Change Men marcy Status Altered / Change Mental Status Altered / Change Mental Status Altered / Change Mental Status Altered / Change Mental Status 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 fall fall Reason for Visit Anxiety Aphasic agraphia Expressive aphasia HTN (hypertension) Oropharyngeal dysphagia Anxiety Aphasic agraphia Expressive aphasia HTN (hypertension) Impaired mobility and activities of daily living Oropharyngeal dysphagia Expressive aphasia Forearm laceration HTN (hypertension) Hypomagnesemia Postoperative anemia due to acute blood loss Subcapital fracture of right hip Chief Complaint Altered / Change Men marcy Status Altered / Change Mental Status Altered / Change Mental Status Altered / Change Mental Status Altered / Change Mental Status 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 fall fall fall Right femoral Neck fx s/p Latrell-Arthroplasty Right femoral Neck fx s/p Latrell-Arthroplasty Right femoral Neck fx s/p Latrell-Arthroplasty Right femoral Neck fx s/p Latrell-Arthroplasty Right femoral Neck fx s/p Latrell-Arthroplasty Reason for Visit Anxiety Aphasic agraphia Expressive aphasia HTN (hypertension) Oropharyngeal dysphagia Anxiety Aphasic agraphia Expressive aphasia HTN (hypertension) Impaired mobility and activities of daily living Oropharyngeal dysphagia Expressive aphasia Fall Forearm laceration Hip fracture, right History of CVA (cerebrovascular accident) HTN (hypertension) Hypomagnesemia Postoperative anemia due to acute blood loss Subcapital fracture of right hip Anxiety Depression with anxiety Dyslipidemia Expressive aphasia Fall Glaucoma Hip fracture, right History of CVA (cerebrovascular accident) HTN (hypertension) Hypoxia Postoperative anemia Postoperative anemia due to acute blood loss S/P hip hemiarthroplasty Seasonal allergies Subcapital fracture of right hip Chief Complaint Altered / Change Men marcy Status Altered / Change Mental Status Altered / Change Mental Status Altered / Change Mental Status Altered / Change Mental Status 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 fall fall fall Right femoral Neck fx s/p Latrell-Arthroplasty Right femoral Neck fx s/p Latrell-Arthroplasty Right femoral Neck fx s/p Latrell-Arthroplasty Right femoral Neck fx s/p Latrell-Arthroplasty Right femoral Neck fx s/p Latrell-Arthroplasty HOSP F/U S/P RT HIP LATRELL Z98.890 - Other specified postprocedural states Reason for Visit Aphasic agraphia Oropharyngeal dysphagia Aphasic agraphia Impaired mobility and activities of daily living Oropharyngeal dysphagia Forearm laceration Hypomagnesemia Subcapital fracture of right hip Subcapital fracture of right hip Other specified postprocedural states Subcapital fracture of right hip Chief Complaint Altered / Change Men marcy Status Altered / Change Mental Status Altered / Change Mental Status Altered / Change Mental Status Altered / Change Mental Status 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 fall fall fall Right femoral Neck fx s/p Latrell-Arthroplasty Right femoral Neck fx s/p Latrell-Arthroplasty Right femoral Neck fx s/p Latrell-Arthroplasty Right femoral Neck fx s/p Latrell-Arthroplasty Right femoral Neck fx s/p Latrell-Arthroplasty HOSP F/U S/P RT HIP LATRELL Z98.890 - Other specified postprocedural states Z98.890 - Other specified postprocedural states 4 WEEKS Reason for Visit Aphasic agraphia Oropharyngeal dysphagia Aphasic agraphia Impaired mobility and activities of daily living Oropharyngeal dysphagia Forearm laceration Hypomagnesemia Subcapital fracture of right hip Subcapital fracture of right hip Other specified postprocedural states Subcapital fracture of right hip Other specified postprocedural states Subcapital fracture of right hip Chief Complaint fall fall fall Right femoral Neck fx s/p Latrell-Arthroplasty Right femoral Neck fx s/p Latrell-Arthroplasty Right femoral Neck fx s/p Latrell-Arthroplasty Right femoral Neck fx s/p Latrell-Arthroplasty Right femoral Neck fx s/p Latrell-Arthroplasty HOSP F/U S/P RT HIP LATRELL Z98.890 - Other specified postprocedural states Z98.890 4 WEEKS 4-5 weeks Z98.890 - Other specified postprocedural states Reason for Visit Forearm laceration Hypomagnesemia Subcapital fracture of right hip Subcapital fracture of right hip Other specified postprocedural states Subcapital fracture of right hip Other specified postprocedural states Subcapital fracture of right hip Other specified postprocedural states Subcapital fracture of right hip Chief Complaint Z98.890 4 WEEKS 4-5 weeks Z98.890 - Other specified postprocedural states Reason for Visit Other specified post procedural states Subcapital fracture of right hip Other specified postprocedural states Subcapital fracture of right hip Chief Complaint 4-5 weeks Z98.890 - Other specified postprocedural states S72.011A - Unspecified intracapsular fracture of r INCREASED RT HIP PAIN LATRELL 01/28/24 Reason for Visit Other specified post procedural states Subcapital fracture of right hip Other specified postprocedural states Pain of right sacroiliac joint Subcapital fracture of right hip Trochanteric bursitis, right hip Chief Complaint 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, 2025 6:45pm Reason for Visit Admit Date Acute CVA (cerebrovascular accident) Sep tember 2024 6:45pm Expressive aphasia June 07, 2025 6:45pm History of CVA (cerebrovascular accident ) June 07, 2025 6:45pm HTN (hypertension) June 07, 2025 6:45pm Impaired mobility and activities of jaylen y living June 07, 2025 6:45pm Paroxysmal atrial fibrillation June 07, 2025 6:45pm Additional Source Comments INFORMATION SOURCE (unrecogn ized section and content) DATE CREATED AUTHOR 12/21/2023 [facility] DATE CREATED AUTHOR AUTHOR'S ORGANIZ ATION 12/03/2024 [facility] DATE CREATED AUTHOR AUTHOR'S ORGANIZ ATION 06/08/2025 [facility] DATE CREATED AUTHOR AUTHOR'S ORGANIZ ATION 06/11/2025 [facility] DATE CREATED AUTHOR AUTHOR'S ORGANIZ ATION 06/15/2025 [facility] DATE CREATED AUTHOR AUTHOR'S ORGANIZ ATION 06/25/2025 [facility] Care Teams (unrecognized sec tion and content) Team Status: Active Member Role Status Dates Hannah Gruber MD Primary Care Provider Active Team Status: Active Member Role Status Dates Hannah Gruber MD Primary Care Provider Active Start: June 07, 2025 Avtar Barbosa MD Admit Provider Active Start: June 07, 2025 Avtar Barbosa MD Attending Provider Active Start: June 07, 2025 Avtar Barbosa MD Other Provider Active Start: June 07, 2025 Ban Reed RN Other Provider Active Star t: June 07, 2025 Debbie Cam RN Other Provider Active Start : June 07, 2025 Noy Borden RN Other Provider Active Star t: June 07, 2025 Opal Sinclair RN Other Provider Active Start: S jhonathantekevin 2024 Jennifer Blake RN Other Provider Active Start: ptskip 2024 Erinn Guerra RN Other Provider Active Start: S epteer 2024 Aby James MD Other Provider Active Start: June 07, 2025 Joe Islas , Other Provider Active Start : June 07, 2025 Jose Foley MD Other Provider Active Start : June 07, 2025 Scottie Coleman DO Other Provider Active Start: June 07, 2025 Severiano Velasco MD Other Provider Active Start: June 07, 2025 Dahiana Villegas MD Other Provider Active Start : June 07, 2025 Fernando Brito DO Other Provider Active St art: June 07, 2025 Rodrigo Ruelas MD Other Provider Active Start: 2024 Cassandra Villalba APRN Other Provider Active Start: June 07, 2025 Alfredo Yip MD Other Provider Active Start: June 07, 2025 Azar Plaza MD Other Provider Active Start: June 07, 2025 Lauren Mijares MD Other Provider Active Start: June 07, 2025 Fernando Fraser DO Other Provider Active Start: June 07, 2025 Austen Hernandez MD Other Provider Active Start: [id number] George Vallejo MD Other Provider Active Start: May Madison Holland NP-C Other Provider Active St art: June 07, 2025 Desi Cartagena APRN Other Provider Active Star t: June 07, 2025 Tobias Tellez MD Other Provider Active Start: June 07, 2025 Samm Buckley MD Other Provider Active Start: [id number] Denae Andrew MD Other Provider Active Star t: June 07, 2025 Chay Ayala DO Other Provider Active Start : June 07, 2025 Fatemeh Pacheco APRN Other Provider Active Start: June 07, 2025 Piyush Elliott DO Other Provider Active Start: June 07, 2025 Anjel So MD Other Provider Active Sta rt: June 07, 2025 Rani Gannon APRN Other Provider Active Start : June 07, 2025 Kerry Roth APRN Other Provider Active St art: June 07, 2025 Jude Moore MD Other Provider Active Start: S eptember 2024 Howard Golden MD Other Provider Active S tart: June 07, 2025 Marcelle Gaston DO Other Provider Active Start: June 07, 2025 Donald Hernandez MD Other Provider Active Start: June 07, 2025 Samuel Espino MD Other Provider Active Start: May Irma Ford APRN Other Provider Active Star t: June 07, 2025 Geoff Jones MD Other Provider Active Start: eproberto 2024 Trey Garrett MD Other Provider Active Start: June 07, 2025 Rodirgo Rodas MD Other Provider Active Start : June 07, 2025 Thaddeus Ramos MD Other Provider Active Start: 2024 Leslie Nettles APRN Other Provider Active Sta rt: June 07, 2025 Madison Bauer APRN Other Provider Active Start: June 07, 2025 Jessy Koo RN Other Provider Active Start: [email or web address] Team Status: Inactive Member Role Status Dates Hannah Gruber MD Primary Care Provider Active Start: December 21, 2023 End: December 23, 2023 Kapil José Jr, MD Emergency Provider Active Start: December 21, 2023 End: December 23, 2023 Azar Plaza MD Admit Provider Active Start: December 21, 2023 End: December 23, 2023 Marcelle Gaston DO Attending Provider Active Sta rt: December 21, 2023 End: December 23, 2023 Dave Naylor DO Other Provider Active Start: December 21, 2023 End: December 23, 2023 Trey Guerra MD Other Provider Active Start: adeola 2023 End: December 23, 2023 Team Status: Active Member Role Status Dates Hannah Gruber MD Primary Care Provider Active Start: December 21, 2023 Kapil José Jr, MD Emergency Provider Active Start: December 21, 2023 Azar Plaza MD Admit Provider, Atte nding Provider, Other Provider Active Start: December 21, 2023 Team Status: Active Member Role Status Dates Hannah Gruber MD Primary Care Provider Active Start: December 22, 2023 Kapil José Jr, MD Emergency Provider Active Start: December 22, 2023 Azar Plaza MD Admit Provider Active Start: December 22, 2023 Marcelle Gaston DO Other Provider Active Start: December 22, 2023 Michael Michele MD Attending Pr ovider, Other Provider Active Start: December 22, 2023 Dave Naylor DO Other Provider Active Start: December 22, 2023 Trey Guerra MD Other Provider Active Start: A 2023 Team Status: Active Member Role Status Dates Hannah Gruber MD Primary Care Provider Active Start: December 22, 2023 Kapil José Jr, MD Emergency Provider Active Start: December 22, 2023 Azar Plaza MD Admit Provider Active Start: December 22, 2023 Marcelle Gaston DO Attending Provider, Other Provider Active Start: December 22, 2023 Michael Michele MD Other Provider Active Start: December 22, 2023 Dave Naylor DO Other Provider Active Start: December 22, 2023 Trey Guerra MD Other Provider Active Start: A 2023 Team Status: Active Member Role Status Dates Hannah Gruber MD Primary Care Provider Active Start: December 22, 2023 Kapil José Jr, MD Emergency Provider Active Start: December 22, 2023 Azar Plaza MD Admit Provider Active Start: December 22, 2023 Marcelle Gaston DO Other Provider Active Start: December 22, 2023 Michael Michele MD Other Provider Active Start: December 22, 2023 Dave Naylor DO Other Provider Active Start: December 22, 2023 Trey Guerra MD Attending Provider, Other Provider Active Start: December 22, 2023 Team Status: Active Member Role Status Dates Hannah Gruber MD Primary Care Provider Active Start: December 21, 2023 Kapil José Jr, MD Emergency Provider Active Start: December 21, 2023 Azar Plaza MD Admit Provider, Atte nding Provider Active Start: December 21, 2023 Team Status: Inactive Member Role Status Dates Hannah Gruber MD Primary Care Provider Active Start: December 23, 2023 End: January 01, 2024 Avtar Barbosa MD Admit Provid er, Attending Provider Active Start: December 23, 2023 End: January 01, 2024 Ban Reed , KIMBER Other Provider Active Star t: December 23, 2023 End: January 01, 2024 Debbie Cam , KIMBER Other Provider Active Start : December 23, 2023 End: January 01, 2024 Naomie Luo , KIMBER Other Provider Active Start: A pril 2023 End: January 01, 2024 Noy Borden RN Other Provider Active Star t: December 23, 2023 End: January 01, 2024 Opal Sinclair RN Other Provider Active Start: A pril 2023 End: January 01, 2024 Jennifer Blake RN Other Provider Active Start: Ap ril 2023 End: January 01, 2024 Aby James MD Other Provider Active Start: December 23, 2023 End: January 01, 2024 Bonilla Moran MD Other Provider Active Start: A [email or web address] End: January 01, 2024 Madina Arroyo APRN Other Provider Active Start: December 23, 2023 End: January 01, 2024 Joe Islas DO Other Provider Active Start : December 23, 2023 End: January 01, 2024 Jose Foley MD Other Provider Active Start : December 23, 2023 End: January 01, 2024 Scottie Coleman DO Other Provider Active Start: December 23, 2023 End: January 01, 2024 Severiano Velasco MD Other Provider Active Start: December 23, 2023 End: January 01, 2024 Dahiana Villegas MD Other Provider Active Start : December 23, 2023 End: January 01, 2024 Rodrigo Ruelas MD Other Provider Active Start: A pril 2023 End: January 01, 2024 Cassandra Villalba APRN Other Provider Active Start: December 23, 2023 End: January 01, 2024 Alfredo Yip MD Other Provider Active Start: December 23, 2023 End: January 01, 2024 Paolo Lyn MD Other Provider Active Start: A pril 2023 End: January 01, 2024 Azar Plaza MD Other Provider Active Start: December 23, 2023 End: January 01, 2024 Lauren Mijares MD Other Provider Active Start: December 23, 2023 End: January 01, 2024 Fernando Fraser DO Other Provider Active Start: December 23, 2023 End: January 01, 2024 Austen Hernandez MD Other Provider Active Start: Ap ril 2023 End: January 01, 2024 George Vallejo MD Other Provider Active Start: Dec End: January 01, 2024 Madison Holland NP-C Other Provider Active St art: December 23, 2023 End: January 01, 2024 Desi Cartagena APRN Other Provider Active Star t: December 23, 2023 End: January 01, 2024 Tobias Tellez MD Other Provider Active Start: December 23, 2023 End: January 01, 2024 Samm Buckley MD Other Provider Active Start: Ap ril 2023 End: January 01, 2024 Eugene Hernandez MD Other Provider Active Start: Dec End: January 01, 2024 Denae Andrew MD Other Provider Active Star t: December 23, 2023 End: January 01, 2024 Blade Quiroz MD Other Provider Active Start: A pril 2023 End: January 01, 2024 Alissa Rivero DO Other Provider Active Start: Ap ril 2023 End: January 01, 2024 Chay Ayala DO Other Provider Active Start : December 23, 2023 End: January 01, 2024 Landen Castro , Other Provider Active Sta rt: December 23, 2023 End: January 01, 2024 Fatemeh Pacheco APRN Other Provider Active Start: December 23, 2023 End: January 01, 2024 Piyush Elliott DO Other Provider Active Start: December 23, 2023 End: January 01, 2024 Anjel So MD Other Provider Active Sta rt: December 23, 2023 End: January 01, 2024 Rani Gannon APRN Other Provider Active Start : December 23, 2023 End: January 01, 2024 Kerry Roth APRN Other Provider Active St art: December 23, 2023 End: January 01, 2024 Jude Moore MD Other Provider Active Start: A pril 2023 End: January 01, 2024 Howard Golden MD Other Provider Active S tart: December 23, 2023 End: January 01, 2024 Quinten Shook , DO Other Provider Active Star t: December 23, 2023 End: January 01, 2024 Marcelle Gaston , Other Provider Active Start: December 23, 2023 End: January 01, 2024 Donald Hernandez MD Other Provider Active Start: December 23, 2023 End: January 01, 2024 Jessy Koo RN Other Provider Active Start: A pril 2023 End: January 01, 2024 Team Status: Active Member Role Status Dates Hannah Gruber MD Primary Care Provider Active Start: December 24, 2023 Avtar Barbosa MD Admit Provid er, Other Provider Active Start: December 24, 2023 Ban Reed , KIMBER Other Provider Active Star t: December 24, 2023 Debbie Cam , KIMBER Other Provider Active Start : December 24, 2023 Naomie Luo , KIMBER Other Provider Active Start: A pril 2023 Noy Borden , KIMBER Other Provider Active Star t: December 24, 2023 Opal Sinclair , KIMBER Other Provider Active Start: A pril 2023 Jennifer Blake , KIMBER Other Provider Active Start: Ap ril 2023 Aby James MD Other Provider Active Start: December 24, 2023 Bonilla Moran MD Other Provider Active Start: A pril 2023 Madina Arroyo APRN Other Provider Active Start: December 24, 2023 Joe Islas DO Other Provider Active Start : December 24, 2023 Jose Foley MD Other Provider Active Start : December 24, 2023 Scottie Coleman DO Other Provider Active Start: December 24, 2023 Severiano Velasco MD Other Provider Active Start: December 24, 2023 Dahiana Villegas MD Other Provider Active Start : December 24, 2023 Rodrigo Ruelas MD Other Provider Active Start: A pril 2023 Cassandra Villalba APRN Other Provider Active Start: December 24, 2023 Alfredo Yip MD Other Provider Active Start: December 24, 2023 Paolo Lyn MD Other Provider Active Start: A pril 2023 Azar Plaza MD Other Provider Active Start: December 24, 2023 Lauren Mijares MD Other Provider Active Start: December 24, 2023 Fernando Fraser , DO Other Provider Active Start: December 24, 2023 Austen Hernandez MD Other Provider Active Start: Ap ril 2023 George Vallejo MD Other Provider Active Start: Dec Madison Holland NP-C Other Provider Active St art: December 24, 2023 Desi Cartagena APRN Other Provider Active Star t: December 24, 2023 Tobias Tellez MD Other Provider Active Start: December 24, 2023 Samm Buckley MD Other Provider Active Start: Ap ril 2023 Eugene Hernandez MD Other Provider Active Start: Dec Denae Andrew MD Other Provider Active Star t: December 24, 2023 Blade Quiroz MD Other Provider Active Start: A pri2023 Alissa Rivero , DO Other Provider Active Start: Ap ril 2023 Chay Ayala , DO Other Provider Active Start : December 24, 2023 Landen Castro , DO Other Provider Active Sta rt: December 24, 2023 Fatemeh Pacheco APRN Other Provider Active Start: December 24, 2023 Piyush Elliott , DO Other Provider Active Start: December 24, 2023 Anjel So MD Other Provider Active Sta rt: December 24, 2023 Rani Gannon APRN Other Provider Active Start : December 24, 2023 Kerry Roth APRN Other Provider Active St art: December 24, 2023 Jude Moore MD Other Provider Active Start: A pril 2023 Howard Golden MD Other Provider Active S tart: December 24, 2023 Quinten Shook , DO Other Provider Active Star t: December 24, 2023 Marcelle Gaston , DO Other Provider Active Start: December 24, 2023 Donald Hernandez MD Other Provider Active Start: December 24, 2023 Jessy Koo , KIMBER Other Provider Active Start: A pril 2023 Loulou Newton APRN Attending Provider Active Start: December 24, 2023 Team Status: Active Member Role Status Dates Hannah Gruber MD Primary Care Provider Active Start: December 24, 2023 Avtar Barbosa MD Admit Provid er, Other Provider Active Start: December 24, 2023 Ban Reed RN Other Provider Active Star t: December 24, 2023 Debbie Cam RN Other Provider Active Start : December 24, 2023 Naomie Luo , KIMBER Other Provider Active Start: A pril 2023 Noy Borden RN Other Provider Active Star t: December 24, 2023 Opal Sinclair RN Other Provider Active Start: A pril 2023 Jennifer Blake RN Other Provider Active Start: Ap ril 2023 Aby James MD Other Provider Active Start: December 24, 2023 Bonilla Moran MD Other Provider Active Start: A pril 2023 Madina Arroyo APRN Other Provider Active Start: December 24, 2023 Joe Islas DO Other Provider Active Start : December 24, 2023 Jose Foley MD Other Provider Active Start : December 24, 2023 Scottie Coleman DO Other Provider Active Start: December 24, 2023 Severiano Velasco MD Other Provider Active Start: December 24, 2023 Dahiana Villegas MD Other Provider Active Start : December 24, 2023 Rodrigo Ruelas MD Other Provider Active Start: A pril 2023 Cassandra Villalba APRN Other Provider Active Start: December 24, 2023 Alfredo Yip MD Other Provider Active Start: December 24, 2023 Paolo Lyn MD Other Provider Active Start: A pril 2023 Azar Plaza MD Other Provider Active Start: December 24, 2023 Lauren Mijares MD Other Provider Active Start: December 24, 2023 Fernando Fraser DO Other Provider Active Start: December 24, 2023 Austen Hernandez MD Other Provider Active Start: Ap ril 2023 George Vallejo MD Other Provider Active Start: Apr 2023 Madison Holland , COMMERCIAL REPORTER-C Other Provider Active St art: December 24, 2023 Desi Cartagena APRN Other Provider Active Star t: December 24, 2023 Tobias Tellez MD Other Provider Active Start: December 24, 2023 Samm Buckley MD Other Provider Active Start: Ap ril 2023 Eugene Hernandez MD Other Provider Active Start: Apr il 2023 Denae Andrew MD Other Provider Active Star t: December 24, 2023 Blade Quiroz MD Other Provider Active Start: A pril 2023 Alissa Rivero , DO Other Provider Active Start: Ap ril 2023 Chay Ayala , DO Other Provider Active Start : December 24, 2023 Landen Castro , DO Other Provider Active Sta rt: December 24, 2023 Fatemeh Pacheco APRN Attending Provider, Other Provider Active Start: December 24, 2023 Piyush Elliott , Other Provider Active Start: December 24, 2023 Anjel So MD Other Provider Active Sta rt: December 24, 2023 Rani Gannon APRN Other Provider Active Start : December 24, 2023 Kerry Roth APRN Other Provider Active St art: December 24, 2023 Jude Moore MD Other Provider Active Start: A pril 2023 Howard Golden MD Other Provider Active S tart: December 24, 2023 Quinten Shook , DO Other Provider Active Star t: December 24, 2023 Marcelle Gaston , Other Provider Active Start: December 24, 2023 Donald Hernandez MD Other Provider Active Start: December 24, 2023 Jessy Koo , KIMBER Other Provider Active Start: A pril 2023 Team Status: Active Member Role Status Dates Hannah Gruber MD Primary Care Provider Active Start: December 31, 2023 Avtar Barbosa MD Admit Provid er, Attending Provider, Other Provider Active Start: December 31, 2023 Ban Reed RN Other Provider Active Star t: December 31, 2023 Debbie Cam RN Other Provider Active Start : December 31, 2023 Naomie Luo , KIMBER Other Provider Active Start: A 2023 oNy Borden , KIMBER Other Provider Active Star t: December 31, 2023 Opal Sinclair RN Other Provider Active Start: A 2023 Jennifer Blake , KIMBER Other Provider Active Start: Ap ril 2023 Aby James MD Other Provider Active Start: December 31, 2023 Bonilla Moran MD Other Provider Active Start: A 2023 Madina Arroyo APRN Other Provider Active Start: December 31, 2023 Joe Islas DO Other Provider Active Start : December 31, 2023 Jose Foley MD Other Provider Active Start : December 31, 2023 Scottie Coleman DO Other Provider Active Start: December 31, 2023 Severiano Velasco MD Other Provider Active Start: December 31, 2023 Dahiana Villegas MD Other Provider Active Start : December 31, 2023 Rodrigo Ruelas MD Other Provider Active Start: A 2023 Cassandra Villalba APRN Other Provider Active Start: December 31, 2023 Alfredo Yip MD Other Provider Active Start: December 31, 2023 Paolo Lyn MD Other Provider Active Start: A 2023 Azar Plaza MD Other Provider Active Start: December 31, 2023 Lauren Mijares MD Other Provider Active Start: December 31, 2023 Fernando Fraser DO Other Provider Active Start: December 31, 2023 Austen Hernandez MD Other Provider Active Start: Ap ril 2023 George Vallejo MD Other Provider Active Start: Dec il 2023 Madison Holland NP-C Other Provider Active St art: December 31, 2023 Desi Cartagena APRN Other Provider Active Star t: December 31, 2023 Tobias Tellez MD Other Provider Active Start: December 31, 2023 Samm Buckley MD Other Provider Active Start: Ap ril 2023 Eugene Hernandez MD Other Provider Active Start: Dec Denae Andrew MD Other Provider Active Star t: December 31, 2023 Blade Quiroz MD Other Provider Active Start: A 2023 Alissa Rivero , DO Other Provider Active Start: Ap 2023 Chay Ayala , DO Other Provider Active Start : December 31, 2023 Landen Castro , DO Other Provider Active Sta rt: December 31, 2023 Fatemeh Pacheco , FAMILY INTERVENTION SPECIALIST Other Provider Active Start: December 31, 2023 Piyush Elliott , DO Other Provider Active Start: December 31, 2023 Anjel So MD Other Provider Active Sta rt: December 31, 2023 Rani Gannon FAMILY INTERVENTION SPECIALIST Other Provider Active Start : December 31, 2023 Kerry Roth , FAMILY INTERVENTION SPECIALIST Other Provider Active St art: December 31, 2023 Jude Moore MD Other Provider Active Start: A 2023 Howard Golden MD Other Provider Active S tart: December 31, 2023 Quinten Shook , DO Other Provider Active Star t: December 31, 2023 Marcelle Gaston , DO Other Provider Active Start: December 31, 2023 Donald Hernandez MD Other Provider Active Start: December 31, 2023 Jessy Koo RN Other Provider Active Start: A 2023 Team Status: Active Member Role Status Dates Hannah Gruber MD Primary Care Provider Active Start: December 21, 2023 End: December 23, 2023 Kapil José Jr, MD Emergency Provider Active Start: December 21, 2023 End: December 23, 2023 Azra Plaza MD Admit Provider, Atte nding Provider, Other Provider Active Start: December 21, 2023 End: December 23, 2023 Team Status: Active Member Role Status Dates Hannah Gruber MD Primary Care Provider Active Start: December 22, 2023 End: December 23, 2023 Kapil José Jr, MD Emergency Provider Active Start: December 22, 2023 End: December 23, 2023 Azar Plaza MD Admit Provider Active Start: December 22, 2023 End: December 23, 2023 Marcelle Gaston DO Other Provider Active Start: December 22, 2023 End: December 23, 2023 Michael Michele MD Attending Param flynn, Other Provider Active Start: December 22, 2023 End: December 23, 2023 Dave Naylor DO Other Provider Active Start: December 22, 2023 End: December 23, 2023 Trey Guerra MD Other Provider Active Start: A pril 2023 End: December 23, 2023 Team Status: Active Member Role Status Dates Hannah Gruber MD Primary Care Provider Active Start: December 22, 2023 End: December 23, 2023 Kapil José Jr, MD Emergency Provider Active Start: December 22, 2023 End: December 23, 2023 Azar Plaza MD Admit Provider Active Start: December 22, 2023 End: December 23, 2023 Marcelle Gaston DO Attending Provider, Other Provider Active Start: December 22, 2023 End: December 23, 2023 Michael Michele MD Other Provider Active Start: December 22, 2023 End: December 23, 2023 Dave Naylor DO Other Provider Active Start: December 22, 2023 End: December 23, 2023 Trey Guerra MD Other Provider Active Start: A pril 2023 End: December 23, 2023 Aby James MD Active Start: Ap 2023 End: December 23, 2023 Team Status: Active Member Role Status Dates Hannah Gruber MD Primary Care Provider Active Start: December 22, 2023 End: December 23, 2023 Kapil José Jr, MD Emergency Provider Active Start: December 22, 2023 End: December 23, 2023 Azar Plaza MD Admit Provider Active Start: December 22, 2023 End: December 23, 2023 Marcelle Gaston DO Other Provider Active Start: December 22, 2023 End: December 23, 2023 Michael Michele MD Other Provider Active Start: December 22, 2023 End: December 23, 2023 Dave Naylor DO Other Provider Active Start: December 22, 2023 End: December 23, 2023 Trey Guerra MD Attending Provider, Other Provider Active Start: December 22, 2023 End: December 23, 2023 Team Status: Active Member Role Status Dates Hannah Gruber MD Primary Care Provider Active Start: December 24, 2023 End: January 01, 2024 Avtar Barbosa MD Admit Provid er, Other Provider Active Start: December 24, 2023 End: January 01, 2024 Ban Reed RN Other Provider Active Star t: December 24, 2023 End: January 01, 2024 Debbie Cam , KIMBER Other Provider Active Start : December 24, 2023 End: January 01, 2024 Naomie Luo , KIMBER Other Provider Active Start: A 2023 End: January 01, 2024 Noy Borden RN Other Provider Active Star t: December 24, 2023 End: January 01, 2024 Opal Sinclair RN Other Provider Active Start: A pri2023 End: January 01, 2024 Jennifer Blake RN Other Provider Active Start: Ap ril 2023 End: January 01, 2024 Aby James MD Other Provider Active Start: December 24, 2023 End: January 01, 2024 Bonilla Moran MD Other Provider Active Start: A 2023 End: January 01, 2024 Madina Arroyo APRN Other Provider Active Start: December 24, 2023 End: January 01, 2024 Joe Isals DO Other Provider Active Start : December 24, 2023 End: January 01, 2024 Jose Foley MD Other Provider Active Start : December 24, 2023 End: January 01, 2024 Scottie Coleman DO Other Provider Active Start: December 24, 2023 End: January 01, 2024 Severiano Velasco MD Other Provider Active Start: December 24, 2023 End: January 01, 2024 Dahiana Villegas MD Other Provider Active Start : December 24, 2023 End: January 01, 2024 Rodrigo Ruelas MD Other Provider Active Start: A 2023 End: January 01, 2024 Cassandra Villalba APRN Other Provider Active Start: December 24, 2023 End: January 01, 2024 Alfredo Yip MD Other Provider Active Start: December 24, 2023 End: January 01, 2024 Paolo Lyn MD Other Provider Active Start: A 2023 End: January 01, 2024 Azar Plaza MD Other Provider Active Start: December 24, 2023 End: January 01, 2024 Lauren Mijares MD Other Provider Active Start: December 24, 2023 End: January 01, 2024 Fernando Fraser , Other Provider Active Start: December 24, 2023 End: January 01, 2024 Austen Hernandez MD Other Provider Active Start: Ap [facility] 2023 End: January 01, 2024 George Vallejo MD Other Provider Active Start: Dec End: January 01, 2024 Madison Holland COMMERCIAL REPORTER-C Other Provider Active St art: December 24, 2023 End: January 01, 2024 Desi Cartagena APRN Other Provider Active Star t: December 24, 2023 End: January 01, 2024 Tobias Tellez MD Other Provider Active Start: December 24, 2023 End: January 01, 2024 Samm Buckley MD Other Provider Active Start: [facility] 2023 End: January 01, 2024 Eugene Hernandez MD Other Provider Active Start: Dec End: January 01, 2024 Denae Andrew MD Other Provider Active Star t: December 24, 2023 End: January 01, 2024 Blade Quiroz MD Other Provider Active Start: A pril 2023 End: January 01, 2024 Alissa Rivero , Other Provider Active Start: [facility] 2023 End: January 01, 2024 Chay Ayala DO Other Provider Active Start : December 24, 2023 End: January 01, 2024 Landen Castro , Other Provider Active Sta rt: December 24, 2023 End: January 01, 2024 Fatemeh Pacheco APRN Other Provider Active Start: December 24, 2023 End: January 01, 2024 Piyush Elliott , Other Provider Active Start: December 24, 2023 End: January 01, 2024 Anjel So MD Other Provider Active Sta rt: December 24, 2023 End: January 01, 2024 Rani Gannon APRN Other Provider Active Start : December 24, 2023 End: January 01, 2024 Kerry Roth APRN Other Provider Active St art: December 24, 2023 End: January 01, 2024 Jude Moore MD Other Provider Active Start: A pril 2023 End: January 01, 2024 Howard Golden MD Other Provider Active S tart: December 24, 2023 End: January 01, 2024 Quinten Shook , Other Provider Active Star t: December 24, 2023 End: January 01, 2024 Marcelle Gaston DO Other Provider Active Start: December 24, 2023 End: January 01, 2024 Donald Hernandez MD Other Provider Active Start: December 24, 2023 End: January 01, 2024 Jessy Koo RN Other Provider Active Start: A 2023 End: January 01, 2024 Loulou Newton APRN Attending Provider Active Start: December 24, 2023 End: January 01, 2024 Team Status: Active Member Role Status Dates Hannah Gruber MD Primary Care Provider Active Start: December 24, 2023 End: January 01, 2024 Avtar Barbosa MD Admit Provid er, Other Provider Active Start: December 24, 2023 End: January 01, 2024 Ban Reed RN Other Provider Active Star t: December 24, 2023 End: January 01, 2024 Debbie Cam , KIMBER Other Provider Active Start : December 24, 2023 End: January 01, 2024 Naomie Luo , KIMBER Other Provider Active Start: A 2023 End: January 01, 2024 Noy Borden , KIMBER Other Provider Active Star t: December 24, 2023 End: January 01, 2024 Opal Sinclair , KIMBER Other Provider Active Start: A pri2023 End: January 01, 2024 Jennifer Blake , KIMBER Other Provider Active Start: Ap [facility] 2023 End: January 01, 2024 Aby James MD Other Provider Active Start: December 24, 2023 End: January 01, 2024 Bonilla Moran MD Other Provider Active Start: A pri2023 End: January 01, 2024 Madina Arroyo APRN Other Provider Active Start: December 24, 2023 End: January 01, 2024 Joe Islas DO Other Provider Active Start : December 24, 2023 End: January 01, 2024 Jose Foley MD Other Provider Active Start : December 24, 2023 End: January 01, 2024 Scottie Coleman DO Other Provider Active Start: December 24, 2023 End: January 01, 2024 Severiano Velasco MD Other Provider Active Start: December 24, 2023 End: January 01, 2024 Dahiana Villegas MD Other Provider Active Start : December 24, 2023 End: January 01, 2024 Rodrigo Ruelas MD Other Provider Active Start: A pril 2023 End: January 01, 2024 Cassandra Villalba APRN Other Provider Active Start: December 24, 2023 End: January 01, 2024 Alfredo Yip MD Other Provider Active Start: December 24, 2023 End: January 01, 2024 Paolo Lyn MD Other Provider Active Start: A pril 2023 End: January 01, 2024 Azar Plaza MD Other Provider Active Start: December 24, 2023 End: January 01, 2024 Lauren Mijares MD Other Provider Active Start: December 24, 2023 End: January 01, 2024 Fernando Fraser DO Other Provider Active Start: December 24, 2023 End: January 01, 2024 Austen Hernandez MD Other Provider Active Start: Ap ril 2023 End: January 01, 2024 George Vallejo MD Other Provider Active Start: Dec End: January 01, 2024 Madison Holland NP-C Other Provider Active St art: December 24, 2023 End: January 01, 2024 Desi Cartagena APRN Other Provider Active Star t: December 24, 2023 End: January 01, 2024 Tobias Tellez MD Other Provider Active Start: December 24, 2023 End: January 01, 2024 Samm Buckley MD Other Provider Active Start: Ap ril 2023 End: January 01, 2024 Eugene Hernandez MD Other Provider Active Start: Dec End: January 01, 2024 Denae Andrew MD Other Provider Active Star t: December 24, 2023 End: January 01, 2024 Blade Quiroz MD Other Provider Active Start: A pril , 2024 End: January 01, 2024 Alissa Rivero , DO Other Provider Active Start: Ap ril 2023 End: January 01, 2024 Chay Ayala , DO Other Provider Active Start : December 24, 2023 End: January 01, 2024 Landen Castro , DO Other Provider Active Sta rt: December 24, 2023 End: January 01, 2024 Fatemeh Pacheco APRN Attending Provider, Other Provider Active Start: December 24, 2023 End: January 01, 2024 Piyush Elliott , Other Provider Active Start: December 24, 2023 End: January 01, 2024 Anjel So MD Other Provider Active Sta rt: December 24, 2023 End: January 01, 2024 Rani Gannon APRN Other Provider Active Start : December 24, 2023 End: January 01, 2024 Kerry Roth APRN Other Provider Active St art: December 24, 2023 End: January 01, 2024 Jude Moore MD Other Provider Active Start: A pri2023 End: January 01, 2024 Howard Golden MD Other Provider Active S tart: December 24, 2023 End: January 01, 2024 Quinten Shook , Other Provider Active Star t: December 24, 2023 End: January 01, 2024 Marcelle Gaston DO Other Provider Active Start: December 24, 2023 End: January 01, 2024 Donald Hernandez MD Other Provider Active Start: December 24, 2023 End: January 01, 2024 Jessy Koo RN Other Provider Active Start: A 2023 End: January 01, 2024 Team Status: Active Member Role Status Dates Hannah Gruber MD Primary Care Provider Active Start: December 31, 2023 End: January 01, 2024 Avtar Barbosa MD Admit [facility] er, Attending Provider, Other Provider Active Start: December 31, 2023 End: January 01, 2024 Ban Reed RN Other Provider Active Star t: December 31, 2023 End: January 01, 2024 Debbie Cam RN Other Provider Active Start : December 31, 2023 End: January 01, 2024 Naomie Luo , KIMBER Other Provider Active Start: A 2023 End: January 01, 2024 Noy Borden RN Other Provider Active Star t: December 31, 2023 End: January 01, 2024 Opal Sinclair RN Other Provider Active Start: A 2023 End: January 01, 2024 Jennifer Blake RN Other Provider Active Start: Ap 2023 End: January 01, 2024 Aby James MD Other Provider Active Start: December 31, 2023 End: January 01, 2024 Bonilla Moran MD Other Provider Active Start: A 2023 End: January 01, 2024 Madina Arroyo APRN Other Provider Active Start: December 31, 2023 End: January 01, 2024 Joe Islas DO Other Provider Active Start : December 31, 2023 End: January 01, 2024 Jose Foley MD Other Provider Active Start : December 31, 2023 End: January 01, 2024 Scottie Coleman DO Other Provider Active Start: December 31, 2023 End: January 01, 2024 Severiano Velasco MD Other Provider Active Start: December 31, 2023 End: January 01, 2024 Dahiana Villegas MD Other Provider Active Start : December 31, 2023 End: January 01, 2024 Rodrigo Ruelas MD Other Provider Active Start: A 2023 End: January 01, 2024 Cassandra Villalba APRN Other Provider Active Start: December 31, 2023 End: January 01, 2024 Alfredo Yip MD Other Provider Active Start: December 31, 2023 End: January 01, 2024 Paolo Lyn MD Other Provider Active Start: A 2023 End: January 01, 2024 Azar Plaza MD Other Provider Active Start: December 31, 2023 End: January 01, 2024 Lauren Mijares MD Other Provider Active Start: December 31, 2023 End: January 01, 2024 Fernando Fraser DO Other Provider Active Start: December 31, 2023 End: January 01, 2024 Austen Hernandez MD Other Provider Active Start: Ap ril 2023 End: January 01, 2024 George Vallejo MD Other Provider Active Start: Dec End: January 01, 2024 Madison Holland NP-C Other Provider Active St art: December 31, 2023 End: January 01, 2024 Desi Cartagena APRN Other Provider Active Star t: December 31, 2023 End: January 01, 2024 Tobias Tellez MD Other Provider Active Start: December 31, 2023 End: January 01, 2024 Samm Buckley MD Other Provider Active Start: Ap ril 2023 End: January 01, 2024 Eugene Hernandez MD Other Provider Active Start: Dec End: January 01, 2024 Denae Andrew MD Other Provider Active Star t: December 31, 2023 End: January 01, 2024 Blade Quiroz MD Other Provider Active Start: A 2023 End: January 01, 2024 Alissa Rivero DO Other Provider Active Start: Ap ril 2023 End: January 01, 2024 Chay Ayala DO Other Provider Active Start : December 31, 2023 End: January 01, 2024 Landen Castro DO Other Provider Active Sta rt: December 31, 2023 End: January 01, 2024 Fatemeh Pacheco APRN Other Provider Active Start: December 31, 2023 End: January 01, 2024 Piyush Elliott DO Other Provider Active Start: December 31, 2023 End: January 01, 2024 Anjel So MD Other Provider Active Sta rt: December 31, 2023 End: January 01, 2024 Rani Gannon APRN Other Provider Active Start : December 31, 2023 End: January 01, 2024 Kerry Roth APRN Other Provider Active St art: December 31, 2023 End: January 01, 2024 Jude Moore MD Other Provider Active Start: A pril 2023 End: January 01, 2024 Howard Golden MD Other Provider Active S tart: December 31, 2023 End: January 01, 2024 Quinten Shook , DO Other Provider Active Star t: December 31, 2023 End: January 01, 2024 Marcelle Gaston , DO Other Provider Active Start: December 31, 2023 End: January 01, 2024 Donald Hernandez MD Other Provider Active Start: December 31, 2023 End: January 01, 2024 Jessy Koo RN Other Provider Active Start: A prirenato 2023 End: January 01, 2024 Team Status: Active Member Role Status Dates Hannah Gruber MD Primary Care Provider Active Start: January 28, 2024 Danny Tripp DO Emergency Provider Active Start: January 28, 2024 Howard Golden MD Admit Provider, Attending Provider Active Start: January 28, 2024 Team Status: Inactive Member Role Status Dates Hannah Gruber MD Primary Care Provider Active Start: January 28, 2024 End: January 30, 2024 Danny Tripp DO Emergency Provider Active Start: January 28, 2024 End: January 30, 2024 Howard Golden MD Admit Provider Active S tart: January 28, 2024 End: January 30, 2024 Rosemary Serra MD Other Provider Active Star t: January 28, 2024 End: January 30, 2024 Azar Plaza MD Attending Provider Active Sta rt: January 28, 2024 End: January 30, 2024 Adeola Wharton MD Other Provider Active Start: Ma elías 2023 End: January 30, 2024 Trey Guerra MD Other Provider Active Start: M alfonso 2023 End: January 30, 2024 Loulou Newton APRN Other Provider Active St art: January 28, 2024 End: January 30, 2024 Ray Stout Jr DO Other Provider Active S tart: January 28, 2024 End: January 30, 2024 Avtar Barbosa MD Other Provider Active Start: January 28, 2024 End: January 30, 2024 Team Status: Active Member Role Status Dates Hannah Gruber MD Primary Care Provider Active Start: January 30, 2024 Danny Tripp DO Emergency Provider Active Start: January 30, 2024 Howard Golden MD Admit Provider Active S tart: January 30, 2024 Rosemary Serra MD Other Provider Active Star t: January 30, 2024 Azar Plaza MD Other Provider Active Start: January 30, 2024 Adeola Wharton MD Other Provider Active Start: Ma y 2023 Trey Guerra MD Attending Provider, Other Provider Active Start: January 30, 2024 Loulou Senaaya , FAMILY INTERVENTION SPECIALIST Other Provider Active St art: January 30, 2024 Ray Stout Jr, DO Other Provider Active S tart: January 30, 2024 Avtar Barbosa MD Other Provider Active Start: January 30, 2024 Team Status: Active Member Role Status Dates Hannah Gruber MD Primary Care Provider Active Start: January 29, 2024 Danny Tripp DO Emergency Provider Active Start: January 29, 2024 Howard Golden MD Admit Provider Active S tart: January 29, 2024 Rosemary Serra MD Attending Provider , Other Provider Active Start: January 29, 2024 Azar Plaza MD Other Provider Active Start: January 29, 2024 Adeola Wharton MD Other Provider Active Start: Ma y 2023 Trey Guerra MD Other Provider Active Start: M ay 2023 Loulou Aman , FAMILY INTERVENTION SPECIALIST Other Provider Active St art: January 29, 2024 Ray Stout Jr, DO Other Provider Active S tart: January 29, 2024 Avtar Barbosa MD Other Provider Active Start: January 29, 2024 Team Status: Inactive Member Role Status Dates Hannah Gruber MD Primary Care Provider Active Start: January 30, 2024 End: February 11, 2024 Ban Reed RN Other Provider Active Star t: January 30, 2024 End: February 11, 2024 Debbie Cam , KIMBER Other Provider Active Start : January 30, 2024 End: February 11, 2024 Noy Borden RN Other Provider Active Star t: January 30, 2024 End: February 11, 2024 Opal Sinclair RN Other Provider Active Start: M ay 2023 End: February 11, 2024 Jennifer Blake RN Other Provider Active Start: 2023 End: February 11, 2024 Aby James MD Other Provider Active Start: January 30, 2024 End: February 11, 2024 Joe Islas , Other Provider Active Start : January 30, 2024 End: February 11, 2024 Jose Foley MD Other Provider Active Start : January 30, 2024 End: February 11, 2024 Scottie Coleman DO Other Provider Active Start: January 30, 2024 End: February 11, 2024 Severiano Velasco MD Other Provider Active Start: January 30, 2024 End: February 11, 2024 Dahiana Villegas MD Other Provider Active Start : January 30, 2024 End: February 11, 2024 Rodrigo Ruelas MD Other Provider Active Start: M ay 2023 End: February 11, 2024 Cassandra Villalba APRN Other Provider Active Start: January 30, 2024 End: February 11, 2024 Alfredo Yip MD Other Provider Active Start: January 30, 2024 End: February 11, 2024 Paolo Lyn MD Other Provider Active Start: M ay 2023 End: February 11, 2024 Azar Plaza MD Other Provider Active Start: January 30, 2024 End: February 11, 2024 Lauren Mijares MD Other Provider Active Start: January 30, 2024 End: February 11, 2024 Fernando Fraser DO Other Provider Active Start: January 30, 2024 End: February 11, 2024 Austen Hernandez MD Other Provider Active Start: Ma y 2023 End: February 11, 2024 George Vallejo MD Other Provider Active Start: January 30, 2024 End: February 11, 2024 Madison Holland NP-C Other Provider Active St art: January 30, 2024 End: February 11, 2024 Desi Cartagena APRN Other Provider Active Star t: January 30, 2024 End: February 11, 2024 Tobias Tellez MD Other Provider Active Start: January 30, 2024 End: February 11, 2024 Samm Buckley MD Other Provider Active Start: Ma y 2023 End: February 11, 2024 Eugene Hernandez MD Other Provider Active Start: January 30, 2024 End: February 11, 2024 Denae Anderw MD Other Provider Active Star t: January 30, 2024 End: February 11, 2024 Blade Quiroz MD Other Provider Active Start: M ay 2023 End: February 11, 2024 Alissa Rivero , DO Other Provider Active Start: Boo mckinley 2023 End: February 11, 2024 Chay Ayala , DO Other Provider Active Start : January 30, 2024 End: February 11, 2024 Fatemeh Pacheco APRN Other Provider Active Start: January 30, 2024 End: February 11, 2024 Piyush Elliott , DO Other Provider Active Start: January 30, 2024 End: February 11, 2024 Anjel So MD Other Provider Active Sta rt: January 30, 2024 End: February 11, 2024 Rani Gannon APRN Other Provider Active Start : January 30, 2024 End: February 11, 2024 Kerry Roth APRN Other Provider Active St art: January 30, 2024 End: February 11, 2024 Jude Moore MD Other Provider Active Start: M ay 2023 End: February 11, 2024 Howard Golden MD Other Provider Active S tart: January 30, 2024 End: February 11, 2024 Quinten Shook , DO Other Provider Active Star t: January 30, 2024 End: February 11, 2024 Marcelle Gaston , DO Other Provider Active Start: January 30, 2024 End: February 11, 2024 Donald Hernandez MD Other Provider Active Start: January 30, 2024 End: February 11, 2024 Jessy Koo RN Other Provider Active Start: M ay 2023 End: February 11, 2024 Avtar Barbosa MD Admit Provid er, Attending Provider Active Start: January 30, 2024 End: February 11, 2024 Team Status: Active Member Role Status Dates Hannah Gruber MD Primary Care Provider Active Start: January 30, 2024 Trey Guerra MD Admit Provider, Othe r Provider Active Start: January 30, 2024 Ban Reed RN Other Provider Active Star t: January 30, 2024 Debbie Cam RN Other Provider Active Start : January 30, 2024 Noy Borden RN Other Provider Active Star t: January 30, 2024 Opal Sinclair RN Other Provider Active Start: M ay 2023 Jennifer Blake RN Other Provider Active Start: Ma y 2023 Aby James MD Other Provider Active Start: January 30, 2024 Joe Islas , DO Other Provider Active Start : January 30, 2024 Jose Foley MD Other Provider Active Start : January 30, 2024 Scottie Coleman , DO Other Provider Active Start: January 30, 2024 Severiano Velasco MD Other Provider Active Start: January 30, 2024 Dahiana Villegas MD Other Provider Active Start : January 30, 2024 Rodrigo Ruelas MD Other Provider Active Start: M ay 2023 Cassandra Villalba APRN Other Provider Active Start: January 30, 2024 Alfredo Yip MD Other Provider Active Start: January 30, 2024 Paolo Lyn MD Other Provider Active Start: M ay 2023 Azar Plaza MD Other Provider Active Start: January 30, 2024 Lauren Mijares MD Other Provider Active Start: January 30, 2024 Fernando Fraser , Other Provider Active Start: January 30, 2024 Austen Hernandez MD Other Provider Active Start: Ma y 2023 George Vallejo MD Other Provider Active Start: January 30, 2024 Madison Holland COMMERCIAL REPORTER-C Other Provider Active St art: January 30, 2024 Desi Cartagena APRN Other Provider Active Star t: January 30, 2024 Tobias Tellez MD Other Provider Active Start: January 30, 2024 Samm Buckley MD Other Provider Active Start: Ma y 2023 Eugene Hernandez MD Other Provider Active Start: January 30, 2024 Denae Andrew MD Other Provider Active Star t: January 30, 2024 Blade Quiroz MD Other Provider Active Start: M ay 2023 Alissa Rivero , Other Provider Active Start: Ma y 2023 Chay Ayala , DO Other Provider Active Start : January 30, 2024 Fatemeh Pacheco APRN Other Provider Active Start: January 30, 2024 Piyush Elliott , DO Other Provider Active Start: January 30, 2024 Anjel So MD Other Provider Active Sta rt: January 30, 2024 Rani Gannon APRN Other Provider Active Start : January 30, 2024 Kerry Roth APRN Other Provider Active St art: January 30, 2024 Jude Moore MD Other Provider Active Start: M ay 2023 Howard Golden MD Other Provider Active S tart: January 30, 2024 Quinten Shook , DO Other Provider Active Star t: January 30, 2024 Marcelle Gaston , DO Other Provider Active Start: January 30, 2024 Donald Hernandez MD Other Provider Active Start: January 30, 2024 Jessy Koo RN Other Provider Active Start: M ay 2023 Rosemary Serra MD Attending Provider Active Start: January 30, 2024 Team Status: Active Member Role Status Dates Hannah Gruber MD Primary Care Provider Active Start: January 31, 2024 Trey Guerra MD Admit Provider, Othe r Provider Active Start: January 31, 2024 Ban Reed , KIMBER Other Provider Active Star t: January 31, 2024 Debbie Cam , KIMBER Other Provider Active Start : January 31, 2024 Noy Borden , KIMBER Other Provider Active Star t: January 31, 2024 Opal Sinclair , KIMBER Other Provider Active Start: M ay 2023 Jennifer Blake , KIMBER Other Provider Active Start: Va y 2023 Aby James MD Other Provider Active Start: January 31, 2024 Joe Islas , Other Provider Active Start : January 31, 2024 Jose Foley MD Other Provider Active Start : January 31, 2024 Scottie Coleman , Other Provider Active Start: January 31, 2024 Severiano Velasco MD Other Provider Active Start: January 31, 2024 Dahiana Villegas MD Other Provider Active Start : January 31, 2024 Rodrigo Ruelas MD Other Provider Active Start: M ay 2023 Cassandra Villalba APRN Other Provider Active Start: January 31, 2024 Alfredo Yip MD Other Provider Active Start: January 31, 2024 Paolo Lyn MD Other Provider Active Start: M ay 2023 Azar Plaza MD Other Provider Active Start: January 31, 2024 Lauren Mijares MD Other Provider Active Start: January 31, 2024 Fernando Fraser , Other Provider Active Start: January 31, 2024 Austen Hernandez MD Other Provider Active Start: Ma y 2023 George Vallejo MD Other Provider Active Start: January 31, 2024 Madison Holland , COMMERCIAL REPORTER-C Other Provider Active St art: January 31, 2024 Desi Cartagena APRN Other Provider Active Star t: January 31, 2024 Tobias Tellez MD Other Provider Active Start: January 31, 2024 Samm Buckley MD Other Provider Active Start: Ma y 2023 Eugene Hernandez MD Other Provider Active Start: January 31, 2024 Denae Andrew MD Other Provider Active Star t: January 31, 2024 Blade Quiroz MD Other Provider Active Start: M ay 2023 Alissa Rivero , DO Other Provider Active Start: Ma y 2023 Chay Ayala , DO Other Provider Active Start : January 31, 2024 Fatemeh Pacheco APRN Other Provider Active Start: January 31, 2024 Piyush Elliott , Other Provider Active Start: January 31, 2024 Anjel So MD Other Provider Active Sta rt: January 31, 2024 Rani Gannon APRN Other Provider Active Start : January 31, 2024 Kerry Roth APRN Other Provider Active St art: January 31, 2024 Jude Moore MD Other Provider Active Start: M ay 2023 Howard Golden MD Other Provider Active S tart: January 31, 2024 Quinten Shook , DO Other Provider Active Star t: January 31, 2024 Marcelle Gaston , DO Other Provider Active Start: January 31, 2024 Donald Hernandez MD Other Provider Active Start: January 31, 2024 Jessy Koo RN Other Provider Active Start: M ay 2023 Loulou Newton APRN Attending Provider Active Start: January 31, 2024 Team Status: Active Member Role Status Dates Hannah Gruber MD Primary Care Provider Active Start: January 31, 2024 Trey Guerra MD Admit Provider, Othe r Provider Active Start: January 31, 2024 Ban Reed , RN Other Provider Active Star t: January 31, 2024 Debbie Cam , KIMBER Other Provider Active Start : January 31, 2024 Noy Borden , KIMBER Other Provider Active Star t: January 31, 2024 Opal Sinclair , KIMBER Other Provider Active Start: 2023 Jennifer Blake , KIMBER Other Provider Active Start: Ma y 2023 Aby James MD Other Provider Active Start: January 31, 2024 Joe Islas DO Other Provider Active Start : January 31, 2024 Jose Foley MD Other Provider Active Start : January 31, 2024 Scottie Coleman DO Other Provider Active Start: January 31, 2024 Severiano Velasco MD Other Provider Active Start: January 31, 2024 Dahiana Villegas MD Other Provider Active Start : January 31, 2024 Rodrigo Ruelas MD Other Provider Active Start: 2023 Cassandra Villalba APRN Other Provider Active Start: January 31, 2024 Alfredo Yip MD Other Provider Active Start: January 31, 2024 Paolo Lyn MD Other Provider Active Start: 2023 Azar Plaza MD Other Provider Active Start: January 31, 2024 Lauren Mijares MD Other Provider Active Start: January 31, 2024 Fernando Fraser DO Other Provider Active Start: January 31, 2024 Austen Hernandez MD Other Provider Active Start: Ma y 2023 George Vallejo MD Other Provider Active Start: January 31, 2024 JAVIER Quezada Other Provider Active St art: January 31, 2024 Desi Cartagena APRN Other Provider Active Star t: January 31, 2024 Tobias Tellez MD Other Provider Active Start: January 31, 2024 Samm Buckley MD Other Provider Active Start: Ma y 2023 Eugene Hernandez MD Other Provider Active Start: January 31, 2024 Denae Andrew MD Other Provider Active Star t: January 31, 2024 Blade Quiroz MD Other Provider Active Start: ay 2023 Alissa Rivero , Other Provider Active Start: Ma y 2023 Chay Ayala , DO Other Provider Active Start : January 31, 2024 Fatemeh Pacheco APRN Other Provider Active Start: January 31, 2024 Piyush Elliott , Other Provider Active Start: January 31, 2024 Anjel So MD Other Provider Active Sta rt: January 31, 2024 Rani aGnnon APRN Other Provider Active Start : January 31, 2024 Kerry Roth APRN Other Provider Active St art: January 31, 2024 Jude Moore MD Other Provider Active Start: 2023 Howard Golden MD Other Provider Active S tart: January 31, 2024 Quinten Shook , DO Other Provider Active Star t: January 31, 2024 Marcelle Gaston , Other Provider Active Start: January 31, 2024 Donald Hernandez MD Other Provider Active Start: January 31, 2024 Jessy Koo RN Other Provider Active Start: 2023 Rosemary Serra MD Attending Provider Active Start: January 31, 2024 Team Status: Active Member Role Status Dates Hannah Gruber MD Primary Care Provider Active Start: February 07, 2024 Ban Reed , KIMBER Other Provider Active Star t: February 07, 2024 Debbie Cam , KIMBER Other Provider Active Start : February 07, 2024 Noy Borden , KIMBER Other Provider Active Star t: February 07, 2024 Opal Sinclair RN Other Provider Active Start: ay 2023 Jennifer Blake RN Other Provider Active Start: Ma y 2023 Aby James MD Other Provider Active Start: February 07, 2024 Joe Islas , Other Provider Active Start : February 07, 2024 Jose Foley MD Other Provider Active Start : February 07, 2024 Scottie Coleman , DO Other Provider Active Start: February 07, 2024 Severiano Velasco MD Other Provider Active Start: February 07, 2024 Dahiana Villegas MD Other Provider Active Start : February 07, 2024 Rodrigo Ruelas MD Other Provider Active Start: M ay 2023 Cassandra Villalba APRN Other Provider Active Start: February 07, 2024 Alfredo Yip MD Other Provider Active Start: February 07, 2024 Paolo Lyn MD Other Provider Active Start: M ay 2023 Azar Plaza MD Other Provider Active Start: February 07, 2024 Lauren Mijares MD Other Provider Active Start: February 07, 2024 Fernando Fraser DO Other Provider Active Start: February 07, 2024 Austen Hernandez MD Other Provider Active Start: 2023 George Vallejo MD Other Provider Active Start: February 07, 2024 Madison Holland , COMMERCIAL REPORTER-C Other Provider Active St art: February 07, 2024 Desi Cartagena APRN Other Provider Active Star t: February 07, 2024 Tobias Tellez MD Other Provider Active Start: February 07, 2024 Samm Buckley MD Other Provider Active Start: Ma y 2023 Eugene Hernandez MD Other Provider Active Start: February 07, 2024 Denae Andrew MD Other Provider Active Star t: February 07, 2024 Blade Quiroz MD Other Provider Active Start: M ay 2023 Alissa Rivero , DO Other Provider Active Start: Ma y 2023 Chay Ayala , DO Other Provider Active Start : February 07, 2024 Fatemeh Pacheco APRN Other Provider Active Start: February 07, 2024 Piyush Elliott , Other Provider Active Start: February 07, 2024 Anjel So MD Other Provider Active Sta rt: February 07, 2024 Rani Gannon APRN Other Provider Active Start : February 07, 2024 Kerry Roth APRN Other Provider Active St art: February 07, 2024 Jude Moore MD Other Provider Active Start: M ay 2023 Howard Golden MD Other Provider Active S tart: February 07, 2024 Quinten Shook , DO Other Provider Active Star t: February 07, 2024 Marcelle Gaston , DO Other Provider Active Start: February 07, 2024 Donald Hernandez MD Other Provider Active Start: February 07, 2024 Jessy Koo RN Other Provider Active Start: M ay 2023 Avtar Barbosa MD Admit Provid er, Attending Provider, Other Provider Active Start: February 07, 2024 Team Status: Active Member Role Status Dates Hannah Gruber MD Primary Care Provider Active Start: January 29, 2024 End: January 30, 2024 Danny Tripp DO Emergency Provider Active Start: January 29, 2024 End: January 30, 2024 Howard Golden MD Admit Provider Active S tart: January 29, 2024 End: January 30, 2024 Rosemary Serra MD Attending Provider , Other Provider Active Start: January 29, 2024 End: January 30, 2024 Azar Plaza MD Other Provider Active Start: January 29, 2024 End: January 30, 2024 Adeola Wharton MD Other Provider Active Start: Va elías 2023 End: January 30, 2024 Trey Guerra MD Other Provider Active Start: M ay 2023 End: January 30, 2024 Loulou Newton APRN Other Provider Active St art: January 29, 2024 End: January 30, 2024 Ray Stout Jr, DO Other Provider Active S tart: January 29, 2024 End: January 30, 2024 Avtar Barbosa MD Other Provider Active Start: January 29, 2024 End: January 30, 2024 Team Status: Active Member Role Status Dates Hannah Gruber MD Primary Care Provider Active Start: January 30, 2024 End: January 30, 2024 Danny Tripp DO Emergency Provider Active Start: January 30, 2024 End: January 30, 2024 Howard Golden MD Admit Provider Active S tart: January 30, 2024 End: January 30, 2024 Rosemary Serra MD Other Provider Active Star t: January 30, 2024 End: January 30, 2024 Azar Plaza MD Other Provider Active Start: January 30, 2024 End: January 30, 2024 Adeola Wharton MD Other Provider Active Start: Boo mckinley 2023 End: January 30, 2024 Trey Guerra MD Attending Provider, Other Provider Active Start: January 30, 2024 End: January 30, 2024 Loulou Newton APRN Other Provider Active St art: January 30, 2024 End: January 30, 2024 Ray Stout Jr, DO Other Provider Active S tart: January 30, 2024 End: January 30, 2024 Avtar Barbosa MD Other Provider Active Start: January 30, 2024 End: January 30, 2024 Team Status: Inactive Member Role Status Dates Hannah Gruber MD Primary Care Provider Active Start: February 20, 2024 End: February 20, 2024 Rosemary Serra MD Attending Provider Active Start: February 20, 2024 End: February 20, 2024 Team Status: Active Member Role Status Dates Hannah Gruber MD Primary Care Provider Active Start: February 20, 2024 Rosemary Serra MD Attending Provider Active Start: February 20, 2024 Team Status: Active Member Role Status Dates Hannah Gruber MD Primary Care Provider Active Start: January 30, 2024 End: February 11, 2024 Trey Guerra MD Admit Provider, Othe r Provider Active Start: January 30, 2024 End: February 11, 2024 Ban Reed RN Other Provider Active Star t: January 30, 2024 End: February 11, 2024 Debbie Cam , KIMBER Other Provider Active Start : January 30, 2024 End: February 11, 2024 Noy Borden RN Other Provider Active Star t: January 30, 2024 End: February 11, 2024 Opal Sinclair RN Other Provider Active Start: Niles hamilton 2023 End: February 11, 2024 Jennifer Blake RN Other Provider Active Start: Boo mckinley 2023 End: February 11, 2024 Aby James MD Other Provider Active Start: January 30, 2024 End: February 11, 2024 Joe Islas , Other Provider Active Start : January 30, 2024 End: February 11, 2024 Jose Foley MD Other Provider Active Start : January 30, 2024 End: February 11, 2024 Scottie Coleman DO Other Provider Active Start: January 30, 2024 End: February 11, 2024 Severiano Velasco MD Other Provider Active Start: January 30, 2024 End: February 11, 2024 Dahiana Villegas MD Other Provider Active Start : January 30, 2024 End: February 11, 2024 Rodrigo Ruelas MD Other Provider Active Start: M ay 2023 End: February 11, 2024 Cassandra Villalba APRN Other Provider Active Start: January 30, 2024 End: February 11, 2024 Alfredo Yip MD Other Provider Active Start: January 30, 2024 End: February 11, 2024 Paolo Lyn MD Other Provider Active Start: M ay 2023 End: February 11, 2024 Azar Plaza MD Other Provider Active Start: January 30, 2024 End: February 11, 2024 Lauren Mijares MD Other Provider Active Start: January 30, 2024 End: February 11, 2024 Fernando Fraser DO Other Provider Active Start: January 30, 2024 End: February 11, 2024 Austen Hernandez MD Other Provider Active Start: Ma y 2023 End: February 11, 2024 George Vallejo MD Other Provider Active Start: January 30, 2024 End: February 11, 2024 JAVIER Quezada Other Provider Active St art: January 30, 2024 End: February 11, 2024 Desi Cartagena APRN Other Provider Active Star t: January 30, 2024 End: February 11, 2024 Tobias Tellez MD Other Provider Active Start: January 30, 2024 End: February 11, 2024 Samm Buckley MD Other Provider Active Start: Ma y 2023 End: February 11, 2024 Eugene Hernandez MD Other Provider Active Start: January 30, 2024 End: February 11, 2024 Denae Andrew MD Other Provider Active Star t: January 30, 2024 End: February 11, 2024 Blade Quiroz MD Other Provider Active Start: M ay 2023 End: February 11, 2024 Alissa Rivero , DO Other Provider Active Start: Boo mckinley 2023 End: February 11, 2024 Chay Ayala , DO Other Provider Active Start : January 30, 2024 End: February 11, 2024 Fatemeh Pacheco APRN Other Provider Active Start: January 30, 2024 End: February 11, 2024 Piyush Elliott , DO Other Provider Active Start: January 30, 2024 End: February 11, 2024 Anjel So MD Other Provider Active Sta rt: January 30, 2024 End: February 11, 2024 Rani Gannon APRN Other Provider Active Start : January 30, 2024 End: February 11, 2024 Kerry Roth APRN Other Provider Active St art: January 30, 2024 End: February 11, 2024 Jude Moore MD Other Provider Active Start: M ay 2023 End: February 11, 2024 Howard Golden MD Other Provider Active S tart: January 30, 2024 End: February 11, 2024 Quinten Shook , DO Other Provider Active Star t: January 30, 2024 End: February 11, 2024 Marcelle Gaston , DO Other Provider Active Start: January 30, 2024 End: February 11, 2024 Donald Hernandez MD Other Provider Active Start: January 30, 2024 End: February 11, 2024 Jessy Koo , KIMBER Other Provider Active Start: M ay 2023 End: February 11, 2024 Rosemary Serra MD Attending Provider Active Start: January 30, 2024 End: February 11, 2024 Team Status: Active Member Role Status Dates Hannah Gruber MD Primary Care Provider Active Start: January 31, 2024 End: February 11, 2024 Trey Guerra MD Admit Provider, Othe r Provider Active Start: January 31, 2024 End: February 11, 2024 Ban Reed RN Other Provider Active Star t: January 31, 2024 End: February 11, 2024 Debbie Cam , KIMBER Other Provider Active Start : January 31, 2024 End: February 11, 2024 Noy Borden RN Other Provider Active Star t: January 31, 2024 End: February 11, 2024 Opal Sinclair , KIMBER Other Provider Active Start: M ay 2023 End: February 11, 2024 Jennifer Blake RN Other Provider Active Start: Boo mckinley 2023 End: February 11, 2024 Aby James MD Other Provider Active Start: January 31, 2024 End: February 11, 2024 Joe Islas , Other Provider Active Start : January 31, 2024 End: February 11, 2024 Jose Foley MD Other Provider Active Start : January 31, 2024 End: February 11, 2024 Scottie Coleman DO Other Provider Active Start: January 31, 2024 End: February 11, 2024 Severiano Velasco MD Other Provider Active Start: January 31, 2024 End: February 11, 2024 Dahiana Villegas MD Other Provider Active Start : January 31, 2024 End: February 11, 2024 Rodrigo Ruelas MD Other Provider Active Start: M ay 2023 End: February 11, 2024 Cassandra Villalba APRN Other Provider Active Start: January 31, 2024 End: February 11, 2024 Alfredo Yip MD Other Provider Active Start: January 31, 2024 End: February 11, 2024 Paolo Lyn MD Other Provider Active Start: M ay 2023 End: February 11, 2024 Azar Plaza MD Other Provider Active Start: January 31, 2024 End: February 11, 2024 Lauren Mijares MD Other Provider Active Start: January 31, 2024 End: February 11, 2024 Fernando Fraser DO Other Provider Active Start: January 31, 2024 End: February 11, 2024 Austen Hernandez MD Other Provider Active Start: Boo mckinley 2023 End: February 11, 2024 George Vallejo MD Other Provider Active Start: January 31, 2024 End: February 11, 2024 Madison Holland , COMMERCIAL REPORTER-C Other Provider Active St art: January 31, 2024 End: February 11, 2024 Desi Cartagena APRN Other Provider Active Star t: January 31, 2024 End: February 11, 2024 Tobias Tellez MD Other Provider Active Start: January 31, 2024 End: February 11, 2024 Samm Buckley MD Other Provider Active Start: Boo mckinley 2023 End: February 11, 2024 Eugene Hernandez MD Other Provider Active Start: January 31, 2024 End: February 11, 2024 Denae Andrew MD Other Provider Active Star t: January 31, 2024 End: February 11, 2024 Blade Quiroz MD Other Provider Active Start: Niles hamilton 2023 End: February 11, 2024 Alissa Rivero , Other Provider Active Start: Boo mckinley 2023 End: February 11, 2024 Chay Ayala , Other Provider Active Start : January 31, 2024 End: February 11, 2024 Fatemeh Pacheco APRN Other Provider Active Start: January 31, 2024 End: February 11, 2024 Piyush Elliott , Other Provider Active Start: January 31, 2024 End: February 11, 2024 Anjel So MD Other Provider Active Sta rt: January 31, 2024 End: February 11, 2024 Rani Gannon APRN Other Provider Active Start : January 31, 2024 End: February 11, 2024 Kerry Roth APRN Other Provider Active St art: January 31, 2024 End: February 11, 2024 Jude Moore MD Other Provider Active Start: Niles hamilton 2023 End: February 11, 2024 Howard Golden MD Other Provider Active S tart: January 31, 2024 End: February 11, 2024 Quinten Shook , DO Other Provider Active Star t: January 31, 2024 End: February 11, 2024 Marcelle Gaston , Other Provider Active Start: January 31, 2024 End: February 11, 2024 Donald Hernandez MD Other Provider Active Start: January 31, 2024 End: February 11, 2024 Jessy Koo , KIMBER Other Provider Active Start: M ay 2023 End: February 11, 2024 Loulou Newton APRN Attending Provider Active Start: January 31, 2024 End: February 11, 2024 Team Status: Active Member Role Status Dates Hannah Gruber MD Primary Care Provider Active Start: January 31, 2024 End: February 11, 2024 Trey Guerra MD Admit Provider, Othe r Provider Active Start: January 31, 2024 End: February 11, 2024 Ban Reed , KIMBER Other Provider Active Star t: January 31, 2024 End: February 11, 2024 Debbie Cam RN Other Provider Active Start : January 31, 2024 End: February 11, 2024 Noy Borden , KIMBER Other Provider Active Star t: January 31, 2024 End: February 11, 2024 Opal Sinclair RN Other Provider Active Start: ay 2023 End: February 11, 2024 Jennifer Blake , KIMBER Other Provider Active Start: Boo mckinley 2023 End: February 11, 2024 Aby James MD Other Provider Active Start: January 31, 2024 End: February 11, 2024 Joe Islas DO Other Provider Active Start : January 31, 2024 End: February 11, 2024 Jose Foley MD Other Provider Active Start : January 31, 2024 End: February 11, 2024 Scottie Coleman DO Other Provider Active Start: January 31, 2024 End: February 11, 2024 Severiano Velasco MD Other Provider Active Start: January 31, 2024 End: February 11, 2024 Dahiana Villegas MD Other Provider Active Start : January 31, 2024 End: February 11, 2024 Rodrigo Ruelas MD Other Provider Active Start: M ay 2023 End: February 11, 2024 Cassandra Villalba APRN Other Provider Active Start: January 31, 2024 End: February 11, 2024 Alfredo Yip MD Other Provider Active Start: January 31, 2024 End: February 11, 2024 Paolo Lyn MD Other Provider Active Start: M ay 2023 End: February 11, 2024 Azar Plaza MD Other Provider Active Start: January 31, 2024 End: February 11, 2024 Lauren Mijares MD Other Provider Active Start: January 31, 2024 End: February 11, 2024 Fernando Fraser , Other Provider Active Start: January 31, 2024 End: February 11, 2024 Austen Hernandez MD Other Provider Active Start: Ma y 2023 End: February 11, 2024 George Vallejo MD Other Provider Active Start: January 31, 2024 End: February 11, 2024 Madison Holland , COMMERCIAL REPORTER-C Other Provider Active St art: January 31, 2024 End: February 11, 2024 Desi Cartagena APRN Other Provider Active Star t: January 31, 2024 End: February 11, 2024 Tobias Tellez MD Other Provider Active Start: January 31, 2024 End: February 11, 2024 Samm Buckley MD Other Provider Active Start: Ma y 2023 End: February 11, 2024 Eugene Hernandez MD Other Provider Active Start: January 31, 2024 End: February 11, 2024 Denae Andrew MD Other Provider Active Star t: January 31, 2024 End: February 11, 2024 Blade Quiroz MD Other Provider Active Start: Niles ay 2023 End: February 11, 2024 Alissa Rivero , Other Provider Active Start: Ma y 2023 End: February 11, 2024 Chay Ayala , Other Provider Active Start : January 31, 2024 End: February 11, 2024 Fatemeh Pacheco APRN Other Provider Active Start: January 31, 2024 End: February 11, 2024 Piyush Elliott , Other Provider Active Start: January 31, 2024 End: February 11, 2024 Anjel So MD Other Provider Active Sta rt: January 31, 2024 End: February 11, 2024 Rani Gannon APRN Other Provider Active Start : January 31, 2024 End: February 11, 2024 Kerry Roth APRN Other Provider Active St art: January 31, 2024 End: February 11, 2024 Jude Moore MD Other Provider Active Start: M ay 2023 End: February 11, 2024 Howard Golden MD Other Provider Active S tart: January 31, 2024 End: February 11, 2024 Quinten Shook , Other Provider Active Star t: January 31, 2024 End: February 11, 2024 Marcelle Gaston DO Other Provider Active Start: January 31, 2024 End: February 11, 2024 Donald Hernandez MD Other Provider Active Start: January 31, 2024 End: February 11, 2024 Jessy Koo , KIMBER Other Provider Active Start: M ay 2023 End: February 11, 2024 Rosemary Serra MD Attending Provider Active Start: January 31, 2024 End: February 11, 2024 Team Status: Active Member Role Status Dates Hannah Gruber MD Primary Care Provider Active Start: February 07, 2024 End: February 11, 2024 Ban Reed , KIMBER Other Provider Active Star t: February 07, 2024 End: February 11, 2024 Debbie Cam , KIMBER Other Provider Active Start : February 07, 2024 End: February 11, 2024 Noy Borden , KIMBER Other Provider Active Star t: February 07, 2024 End: February 11, 2024 Opal Sinclair , KIMBER Other Provider Active Start: M ay 2023 End: February 11, 2024 Jennifer Blake , KIMBER Other Provider Active Start: Boo mckinley 2023 End: February 11, 2024 Aby James MD Other Provider Active Start: February 07, 2024 End: February 11, 2024 Joe Islas DO Other Provider Active Start : February 07, 2024 End: February 11, 2024 Jose Foley MD Other Provider Active Start : February 07, 2024 End: February 11, 2024 Scottie Coleman DO Other Provider Active Start: February 07, 2024 End: February 11, 2024 Severiano Velasco MD Other Provider Active Start: February 07, 2024 End: February 11, 2024 Dahiana Villegas MD Other Provider Active Start : February 07, 2024 End: February 11, 2024 Rodrigo Ruelas MD Other Provider Active Start: M ay 2023 End: February 11, 2024 Cassandra Villalba APRN Other Provider Active Start: February 07, 2024 End: February 11, 2024 Alfredo Yip MD Other Provider Active Start: February 07, 2024 End: February 11, 2024 Paolo Lyn MD Other Provider Active Start: M ay 2023 End: February 11, 2024 Azar Plaza MD Other Provider Active Start: February 07, 2024 End: February 11, 2024 Lauren Mijares MD Other Provider Active Start: February 07, 2024 End: February 11, 2024 Fernando Fraser DO Other Provider Active Start: February 07, 2024 End: February 11, 2024 Austen Hernandez MD Other Provider Active Start: Boo mckinley 2023 End: February 11, 2024 George Vallejo MD Other Provider Active Start: February 07, 2024 End: February 11, 2024 Madison Holland NP-Augustina Other Provider Active St art: February 07, 2024 End: February 11, 2024 Desi Cartagena APRN Other Provider Active Star t: February 07, 2024 End: February 11, 2024 Tobias Tellez MD Other Provider Active Start: February 07, 2024 End: February 11, 2024 Samm Buckley MD Other Provider Active Start: Boo y 2023 End: February 11, 2024 Eugene Hernandez MD Other Provider Active Start: February 07, 2024 End: February 11, 2024 Denae Andrew MD Other Provider Active Star t: February 07, 2024 End: February 11, 2024 Blade Quiroz MD Other Provider Active Start: M ay 2023 End: February 11, 2024 Alissa Rivero , DO Other Provider Active Start: Boo mckinley 2023 End: February 11, 2024 Chay Ayala , DO Other Provider Active Start : February 07, 2024 End: February 11, 2024 Fatemeh Pacheco APRN Other Provider Active Start: February 07, 2024 End: February 11, 2024 Piyush Elliott , DO Other Provider Active Start: February 07, 2024 End: February 11, 2024 Anjel So MD Other Provider Active Sta rt: February 07, 2024 End: February 11, 2024 Rani Gannon APRN Other Provider Active Start : February 07, 2024 End: February 11, 2024 Kerry Roth APRN Other Provider Active St art: February 07, 2024 End: February 11, 2024 Jude Moore MD Other Provider Active Start: M ay 2023 End: February 11, 2024 Howard Golden MD Other Provider Active S tart: February 07, 2024 End: February 11, 2024 Quinten Shook , DO Other Provider Active Star t: February 07, 2024 End: February 11, 2024 Marcelle Gaston , DO Other Provider Active Start: February 07, 2024 End: February 11, 2024 Donald Hernandez MD Other Provider Active Start: February 07, 2024 End: February 11, 2024 Jessy Koo RN Other Provider Active Start: M ay 2023 End: February 11, 2024 Avtar Barbosa MD Admit Provid er, Attending Provider, Other Provider Active Start: February 07, 2024 End: February 11, 2024 Team Status: Active Member Role Status Dates Hannah Gruber MD Primary Care Provider Active Start: March 19, 2024 Rosemary Serra MD Attending Provider Active Start: March 19, 2024 Team Status: Inactive Member Role Status Dates Hannah Gruber MD Primary Care Provider Active Start: March 19, 2024 End: March 19, 2024 Rosemary Serra MD Attending Provider Active Start: March 19, 2024 End: March 19, 2024 Team Status: Inactive Member Role Status Dates Hannah Gruber MD Primary Care Provider Active Start: April 23, 2024 End: April 23, 2024 Rosemary Serra MD Attending Provider Active Start: April 23, 2024 End: April 23, 2024 Team Status: Active Member Role Status Dates Hannah Gruber MD Primary Care Provider Active Start: April 23, 2024 Rosemary Serra MD Attending Provider Active Start: April 23, 2024 Team Status: Inactive Member Role Status Dates Hannah Gruber MD Primary Care Provider Active Start: May 25, 2024 End: May 25, 2024 JAVIER Pruitt Attending Provider Active Start: May 25, 2024 End: May 25, 2024 Team Status: Active Member Role Status Dates Hannah Gruber MD Primary Care Provider Active Start: June 29, 2024 Rosemary Serra MD Attending Provider Active Start: June 29, 2024 Team Status: Inactive Member Role Status Dates Hannah Gruber MD Primary Care Provider Active Start: June 29, 2024 End: June 29, 2024 Rosemary Serra MD Attending Provider Active Start: June 29, 2024 End: June 29, 2024 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 Start Date End Date Hannah Gruber MD [address] [place] [id number] PCP - General Family Medicine 05/30/25 Goals (unrecognized section and content) Goals may be documented in a n alternate sectionGoals may be documented in an alternate sectionGoals may be documented in an alternate sectionGoals may be documented in an alternate sectionGoals may be documented in an alternate section Ordered Prescriptions (unrec ognized section and content) Prescription Sig Dispense Quantity Refills Last Filled Start Date End Date rivaroxaban (XARELTO) 20 MG TABS tablet Take 1 tablet by mouth Daily with supper 30 tablet 3 06/07/2025 atorvastatin (LIPITOR) 40 MG tablet Take 1 tablet by mouth nightly 30 tablet 06/03/2025 aspirin 81 MG EC tablet Take 1 tablet by mouth daily 30 tablet 06/03/2025 Scheduled Active and Recently Administ ered Medications (unrecognized section and content) Medication Order 06/05/2025 06/06/2025 06/07/2025 aspirin EC tablet 81 mg 81 mg, Oral, DAILY, First dose on Fri05/31/25 at 0900, Until Discontinued 1029 (Given - Provider: Sneha Damon RN) 0800 (Given - Provider: Jose Arteaga RN) 0850 (Given - Provider: Howard He, KIMBER) atorvastatin (LIPITOR) tablet 40 mg 40 mg, Oral, NIGHTLY, First dose on Fri05/30/25 at 2330, Until Discontinued 1950 (Given - Provider: Brianne Shafer RN) 1932 (Given - Provider: Sanjeev Durant RN) 2100 (Due) lidocaine 4 % external patch 1 patch 1 patch, TransDERmal, Administer over 12 Hours, DAILY, First dose on Fri06/02/25 at 0400, Substituted for Lidocaine 5% Patch.apply to painful area right buttock The maintenance truck driver's recommendations for the number of patches that can be applied within a 24-hour period varies from 1 to 4 times daily and the duration of application varies from 8 to 24 hours; refer to the maintenance truck driver's labeling for product-specific recommendations. 1000 (Not Given - Provider: Sneha Damon RN - Reason: Patient/family refused) 0800 (Patch Applied - Provider: Jose Arteaga RN)1934 (Patch Removed - Provider: Sanjeev Durant RN) 0850 (Not Given - Provider: Howard He RN - Reason: Patient/family refused) rivaroxaban (XARELTO) tablet 20 mg 20 mg, Oral, DAILY WITH DINNER, First dose on Fri06/06/25 at 1545, Until Discontinued, Indication of Use: A Fib/A Flutter, Administer doses GREATER THAN or EQUAL to 15 mg with food; doses of 2.5 mg and 10 mg may be administered without regard to meals. 1548 (Given - Provider: Jose Arteaga RN) 1730 (Due) sodium chloride flush 0.9 % injection 5-40 mL 5-40 mL, IntraVENous, EVERY 12 HOURS SCHEDULED (2 times per day), First dose on Fri05/30/25 at 2100, Until Discontinued, For Line Patency: Peripheral IV = 5 mL; Midline or Central Line = 10 mL/lumen. If following IV push medication, administer flush at same rate as the IV push. Flush volume is determined by type of infusion therapy being given. For non-viscous solutions use: Peripheral IV = 5 mL Midline or Central Line = 10 mL/lumen For viscous solutions (i.e. blood components, parenteral nutrition, contrast media, or after obtaining blood sample) use: Peripheral IV = 10 mL Midline or Central Line = 20 mL/lumen 1030 (Given - Provider: Sneha Damon RN)1950 (Not Given - Provider: Brianne Shafer RN - Reason: IV Fluid Infusing) 0800 (Not Given - Provider: Jose Arteaga RN - Reason: IV Fluid Infusing)1932 (Given - Provider: Sanjeev Durant, KIMBER) 0851 (Given - Provider: Howard He RN)2100 (Due) traZODone (DESYREL) tablet 50 mg (COMPLETED) 50 mg, Oral, Once, 1 dose, On 06/05/25 at 0115 0059 (Given - Provider: Brianne Shafer RN) Continuous Medication Order 06/05/2025 06/06/2025 06/07/2025 heparin 25,000 units in dextrose 5% 250 mL (premix) infusion (CANCELED) 5-30 Units/kg/hr 80.2 kg (4.01-24.06 mL/hr, rounded to 4-24.1 mL/hr), IntraVENous, CONTINUOUS, Starting on 06/05/25 at 1600, Until 06/06/25 at 1439, Heparin Weight-Based Infusion (NEURO/HIGH BLEED RISK/NO BOLUS) Patient weight: 80.2 kg Initial Infusion rate: 12 Units/kg/hr (Initial bolus = NONE) Hang infusion immediately after drawing initial labs. Do NOT use ANY Anti-Xa drawn prior to initiation of infusion for titration. Check Anti-Xa 6 hours after initiation and 6 hours after every dose change for any titrations. Adjust infusion rate based on Anti-Xa results as listed below. Rate adjustments are to be based on initial weight of 80.2 kg. Anti-Xa < 0.1 units/mL No bolus. Increase infusion by 4 units/kg/hr. Anti-Xa 0.1-0.29 units/mL No bolus. Increase infusion by 2 units/kg/hr. Anti-Xa 0.3-0.5 units/mL No bolus. No change in rate. Anti-Xa 0.51-0.7 units/mL No bolus. Decrease infusion by 1 units/kg/hr. Anti-Xa 0.71-0.99 units/mL No bolus. Decrease infusion by 2 units/kg/hr. Anti-Xa 1 units/mL or greater Hold heparin for 60 minutes, then decrease infusion by 3 units/kg/hr. Draw next Anti-Xa 6 hours after infusion is restarted. When Anti-Xa is within target range for two consecutive times, check Anti-Xa once daily with morning labs. If the rate titration adjustment indicated by the nomogram causes a dose that is above the ordered range, contact provider. If heparin drip is held or stopped for a procedure, call provider to obtain resume rate. 1738 (New Bag - Provider: Sneha Damon RN)2138 (Rate/Dose Verify - Provider: Brianne Shafer RN)2256 (Rate/Dose Change - Provider: Brianne Shafer RN) 0512 (Rate/Dose Change - Provider: Brianne Shafer RN)0705 (Handoff - Provider: Brianne Shafer RN)0813 (New Bag - Provider: Jose Arteaga RN)1043 (Rate/Dose Verify - Provider: Jose Arteaga RN)1044 (Rate/Dose Change - Provider: Jose Arteaga, KIMBER)1500 (Stopped - Provider: Jose Arteaga RN) PRN Medication Order 06/05/2025 06/06/2025 06/07/2025 0.9 % sodium chloride infusion IntraVENous, at 5-250 mL/hr, PRN, if patient receiving piggyback infusions and maintenance fluids are not ordered, Starting on Fri05/30/25 at 1944, For piggyback infusion, administer at same rate as piggyback for a total of 25 mL. Enter 25 mL into dose field and piggyback rate into rate field of order. If piggyback is infusing at a rate less than 100 mL/hr, enter 25 mL into dose field and 100 mL/hr into rate field of order. acetaminophen (TYLENOL) suppository 650 mg(Linked Group 1) 650 mg, Rectal, EVERY 6 HOURS PRN, Starting on Fri05/30/25 at 1944, Until Discontinued, Pain Mild (1-3) OR per patient request for pain score (4-10), Fever, For temp greater than 100.4 F (38 C), Administer if oral route cannot be used. acetaminophen (TYLENOL) tablet 650 mg(Linked Group 1) 650 mg, Oral, EVERY 6 HOURS PRN, Starting on Fri05/30/25 at 1944, Until Discontinued, Pain Mild (1-3) OR per patient request for pain score (4-10), Fever, For temp greater than 100.4 F (38 C), Maximum dose of acetaminophen is 4000 mg from all sources in 24 hours. magnesium sulfate 2000 mg in 50 mL IVPB premix 2,000 mg, IntraVENous, at 25 mL/hr, Administer over 2 Hours, PRN, Other, Magnesium Replacement, Starting on Fri05/30/25 at 194, Mag Lab Replacement Action 1.4-1.6 mg/dL 2,000 mg Total Dose Given as 1,000 mg IVPB x 2 doses or 2,000 mg IVPB x 1 dose 1.0-1.3 mg/dL 4,000 mg Total Dose Given as 1,000 mg IVPB x 4 doses or 2,000 mg IVPB x 2 doses Less than 1.0 mg/dL CALL PHYSICIAN and give 4,000 mg Total Dose Given as 1,000 mg IVPB x 4 doses or 2,000 mg IVPB x 2 doses Infuse at 1,000 mg/hr consecutively Repeat Mag level 1 hour after final administration Protocol not for use in Patients with CrCl less than 30ml/min melatonin tablet 3 mg 3 mg, Oral, NIGHTLY PRN, Starting on Fri06/03/25 at 2021, Until Discontinued, Sleep 1950 (Given - Provider: Brianne Shafer, KIMBER) 193 (Given - Provider: Sanjeev Durant RN) ondansetron (ZOFRAN) injection 4 mg(Linked Group 2) 4 mg, IntraVENous, EVERY 6 HOURS PRN, Starting on Fri05/30/25 at 1944, Until Discontinued, Nausea, Vomiting, Administer if oral route cannot be used. ondansetron (ZOFRAN-ODT) disintegrating tablet 4 mg(Linked Group 2) 4 mg, Oral, EVERY 8 HOURS PRN, Starting on Fri05/30/25 at 1944, Until Discontinued, Nausea, Vomiting polyethylene glycol (GLYCOLAX) packet 17 g 17 g, Oral, DAILY PRN, Starting on Fri05/30/25 at 4, Until Discontinued, Constipation, First line therapy for constipation potassium bicarb-citric acid (EFFER-K) effervescent tablet 40 mEq(Linked Group 3) 40 mEq, Oral, PRN, Starting on Fri05/30/25 at 1943, Until Discontinued, Per Potassium Replacement Protocol, Administer as alternative if patient unable to tolerate oral tablet. K Lab Replacement Action 3.1 to 3.5 40 mEq ORAL x 1 Under 3.1 Refer to IV replacement protocol Recheck K level in AM. Protocol not for use in patients with CrCl lessthan 30 mL/min. Do not chew or crush. Dissolve flavored tablets completely in 3 to 4 ounces of cold water; unflavored tablets may be dissolved in 3 to 4 ounces of cold juice. Patient to sip slowly over a 5 to 10 minute period. May further dilute if GI adverse effects occur. potassium chloride (KLOR-CON M) extended release tablet 40 mEq(Linked Group 3) 40 mEq, Oral, PRN, Starting on Fri05/30/25 at 1943, Until Discontinued, Potassium Replacement, May give alternative linked oral order (ordered as effervescent, packet, or liquid solution) if patient unable to tolerate tablet. K Lab Replacement Action 3.1 to 3.5 40 mEq ORAL x 1 Under 3.1 Refer to IV replacement protocol Recheck K level in AM. Protocol not for use in patients with CrCl less than 30 mL/min. Do not crush, chew, or suck on tablet. Tablet may also be broken in half and each half swallowed separately. potassium chloride 10 mEq/100 mL IVPB (Peripheral Line)(Linked Group 3) 10 mEq, IntraVENous, PRN, Starting on Fri05/30/25 at 194, Until Discontinued, at 100 mL/hr, Other, Potassium Replacement, K Lab Replacement Action 2.7 to 3.0 10 mEq IVPB x 6 doses (60 mEq Total) Under 2.7 CALL PROVIDER and administer 10 mEq IVPB x 6 doses (60 mEq Total) Infuse at 10 mEq/hr consecutively. Repeat Potassium lab 1 hour after final administration., Protocol not for use in patients with CrCl less than 30 mL/min. sodium chloride flush 0.9 % injection 10 mL 10 mL, IntraVENous, PRN, Starting on Fri05/30/25 at 1944, Until Discontinued, Line Care, After every IV line use 1029 (Given - Provider: Sneha Damon RN) Linked Groups Order Group 1: acetaminophen (TYLENOL) tablet 650 mgJump to med 650 mg, Oral, EVERY 6 HOURS PRN, Starting on Fri05/30/25 at 1944, Until Discontinued, Pain Mild (1-3) OR per patient request for pain score (4-10), Fever, For temp greater than 100.4 F (38 C), Maximum dose of acetaminophen is 4000 mg from all sources in 24 hours. Or acetaminophen (TYLENOL) suppository 650 mgJump to med 650 mg, Rectal, EVERY 6 HOURS PRN, Starting on Fri05/30/25 at 1943, Until Discontinued, Pain Mild (1-3) OR per patient request for pain score (4-10), Fever, For temp greater than 100.4 F (38 C), Administer if oral route cannot be used. Group 2: ondansetron (ZOFRAN-ODT) disintegrating tablet 4 mgJump to med 4 mg, Oral, EVERY 8 HOURS PRN, Starting on Fri05/30/25 at 1944, Until Discontinued, Nausea, Vomiting Or ondansetron (ZOFRAN) injection 4 mgJump to med 4 mg, IntraVENous, EVERY 6 HOURS PRN, Starting on Fri05/30/25 at 1943, Until Discontinued, Nausea, Vomiting, Administer if oral route cannot be used. Group 3: potassium chloride (KLOR-CON M) extended release tablet 40 mEqJump to med 40 mEq, Oral, PRN, Starting on Fri05/30/25 at 194, Until Discontinued, Potassium Replacement, May give alternative linked oral order (ordered as effervescent, packet, or liquid solution) if patient unable to tolerate tablet. K Lab Replacement Action 3.1 to 3.5 40 mEq ORAL x 1 Under 3.1 Refer to IV replacement protocol Recheck K level in AM. Protocol not for use in patients with CrCl less than 30 mL/min. Do not crush, chew, or suck on tablet. Tablet may also be broken in half and each half swallowed separately. Or potassium bicarb-citric acid (EFFER-K) effervescent tablet 40 mEqJump to med 40 mEq, Oral, PRN, Starting on Fri05/30/25 at 1944, Until Discontinued, Per Potassium Replacement Protocol, Administer as alternative if patient unable to tolerate oral tablet. K Lab Replacement Action 3.1 to 3.5 40 mEq ORAL x 1 Under 3.1 Refer to IV replacement protocol Recheck K level in AM. Protocol not for use in patients with CrCl lessthan 30 mL/min. Do not chew or crush. Dissolve flavored tablets completely in 3 to 4 ounces of cold water; unflavored tablets may be dissolved in 3 to 4 ounces of cold juice. Patient to sip slowly over a 5 to 10 minute period. May further dilute if GI adverse effects occur. Or potassium chloride 10 mEq/100 mL IVPB (Peripheral Line)Jump to med 10 mEq, IntraVENous, PRN, Starting on Fri05/30/25 at 1943, Until Discontinued, at 100 mL/hr, Other, Potassium Replacement, K Lab Replacement Action 2.7 to 3.0 10 mEq IVPB x 6 doses (60 mEq Total) Under 2.7 CALL PROVIDER and administer 10 mEq IVPB x 6 doses (60 mEq Total) Infuse at 10 mEq/hr consecutively. Repeat Potassium lab 1 hour after final administration., Protocol not for use in patients with CrCl less than 30 mL/min. FOR RECORDS PERTAINING TO PATIENTS WHO ARE OR HAVE BEEN ENROLLED IN A CHEMICAL DEPENDENCY/SUBSTANCEABUSE PROGRAM, SOME INFORMATION MAY BE OMITTED. This clinical summary was aggregated from multiple sources. Caution should be exercised in using it in the provision of clinical care. This summary normalizes information from multiple sources, and as a consequence, information in this document may materially change the coding, format and clinical context of patient data. In addition, data may be omitted in some cases. CLINICAL DECISIONS SHOULD BE BASED ON THE PRIMARY CLINICAL RECORDS. [email or web address] provides no warranty or guarantee of the accuracy or completeness of information in this document.
--- NOTE | 2025-06-28 12:27 | PM.WCHP ---
Wound Care H&P: HPI History of Present Illness Narrative: Ms. Alejandra is a pleasant 79 year old female with history or prior stroke, hip replacement, and anticoagulant use who presents for routine nail care. The patient reports the elongated toenails are painful. She otherwise has no complaints in regards to her feet at this time. Exam Narrative: Exam Narrative: Derm: Toenails 1-10 are thickened, dystrophic, and elongated and painful to the touch. Skin is diffusely shiny and atrophic. No ulcerative or preulcerative lesions are noted. Vasc: nonpitting BLE edema noted. DP ant PT pulses are 2/4. Digital hair is present. Neuro: vibratory sensation is decreased. Achilles DTRs are absent bilaterally. Protective sensation appears grossly intact. 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 Follow up in 3 months, sooner if needed. Acute Procedures Podiatry Nail Debridement Class B Findings Advanced trophic changes as evidenced by any three of the following: nail changes (thickening), pigmentary changes (discoloring) and skin texture (thin or shiny) Class C Findings Claudication: No Temperature changes: Yes Edema: Yes Nail debridement paresthesia (abnormal spontaneous sensations in the feet): Yes Burning: No Qualifies If: Qualifiers If:: A patient qualifies for nail debridement if they have: 1 class A finding (Q7) 2 class B findings (Q8) OR 1 class B & 2 class C findings in addition to a primary condition (Q9) Nail Procedure Nail Procedure Time out: Yes Nail procedure: other (toenail debridement) Number of affected nails: 10 Location (toes): left and right Procedure successful: Yes Patient tolerated procedure: well and no complications Additional comments: toenails 1-10 were sharply debrided with nail nippers without incident.
== END 2025-06-28 10:59 | disposition home or self-care (01) ==
LOC: WC 10:58
PROVIDERS: Visit Provider Physician Assistant
DX: R26.89 Other abnormalities of gait and mobility (principal); B35.1 Tinea unguium; M79.676 Pain in unspecified toe(s); I69.859 Hemiplegia and hemiparesis following other cerebrovascular disease affecting unspecified side
CPT/HCPCS: 11721